=== PATIENT | male | born 1960 | race Caucasian/White ===

== ENCOUNTER → 2018-11-14 12:39 | Outpatient (CLI) | payer OTHER, SELFPAY ==
--- NOTE | 2018-11-14 12:45 | RAD_ITS ---
STUDY: X-RAY - LUMBAR SPINE REASON FOR EXAM: Male, 57 years old. Back pain and sciatica TECHNIQUE: view(s) of the lumbar spine were obtained. COMPARISON: None FINDINGS: There is grade 1 anterolisthesis of L4 and L5, approximately 4 mm. There is suboptimal visualization of the pars interarticularis to definitively evaluate for lysis. The rest of the spine is intact and aligned. Mineralization is normal. Paraspinous shadows are unremarkable. SI joints are normal. There are expected age-related changes at all levels. There is no intestinal obstruction. There are small, 2-3 mm, densities projecting in the left flank, possibly renal stones. RAD/Lumbar Spine 2 or 3 Views IMPRESSION: L4-L5 grade 1 anterolisthesis, possibility of lysis. Confirmation with CT or MR is advised. Electronically Signed: Carmenza Pascual, at 17:58 EDT Tel , Service support ,
--- NOTE | 2018-11-14 12:45 | RAD_ITS ---
STUDY: X-RAY - LEFT SHOULDER REASON FOR EXAM: Male, 57 years old. Shoulder pain TECHNIQUE: 4 view(s) of the shoulder. COMPARISON: None. FINDINGS: Normal glenohumeral articulation. Normal acromioclavicular joint. Normal acromion. Normal humeral head and visualized proximal humerus. There is a small calcification at the insertion footplate of the rotator cuff. The soft tissue structures are unremarkable. Normal visualized pulmonary apex. RAD/Shoulder min 2 Views IMPRESSION: No acute or chronic process of normality. Mild chronic rotator cuff tendon degeneration. Electronically Signed: Carmenza Pascual, at 18:04 EDT Tel , Service support ,
== END ==
PROVIDERS: Family Provider Physician Assistant; PCP Physician Assistant
DX: M25.512 Pain in left shoulder (principal); M54.30 Sciatica, unspecified side
CPT/HCPCS: 72100; 73030

== ENCOUNTER 2020-06-02 15:58 | Outpatient (RCR) | payer OTHER, SELFPAY ==
[2020-06-02] MEDS: COVID-19 VACC, MRNA(PFIZER)/PF 30 MCG/0.3 ML SYRINGE IM (12:43)
[2020-06-23] MEDS: COVID-19 VACC, MRNA(PFIZER)/PF 30 MCG/0.3 ML SYRINGE IM (12:35)
== END 2020-06-02 23:59 ==
LOC: IMMUN 15:58
PROVIDERS: PCP Student in an Organized Health Care Education/Training Program; Referring Provider Family Medicine; Visit Provider Family Medicine
DX: Z23 Encounter for immunization (principal)
CPT/HCPCS: 0001A; 0002A; 91300

== ENCOUNTER → 2020-06-17 13:48 | Outpatient (CLI) | payer OTHER, SELFPAY ==
--- NOTE | 2020-06-17 13:57 | RAD_ITS ---
EXAM: XR LEFT KNEE, 3 VIEWS CLINICAL INDICATION: KNEE PAIN TECHNIQUE: Three views of the left knee. This report was created using [facility] report generation technology. COMPARISON: None. FINDINGS: BONES/JOINTS: Mild degenerative changes of the patellofemoral joint. No acute fracture. No subluxation. Normal alignment. No sclerotic or destructive changes observed. SOFT TISSUES: Unremarkable. No soft tissue swelling or gas. No radiopaque foreign body. VASCULATURE: Atherosclerosis. RAD/Knee 3 Views IMPRESSION: Mild degenerative changes of the patellofemoral joint. Electronically Signed: Bird Moore MD (Brooks) at 19:25 EDT , Service support ,
--- NOTE | 2020-06-17 14:00 | RAD_ITS ---
EXAM: XR LEFT HIP WITH PELVIS WHEN PERFORMED, 2 OR 3 VIEWS CLINICAL INDICATION: HIP PAIN TECHNIQUE: Two or three views of the left hip with pelvis when performed. This report was created using [employer] report generation technology. COMPARISON: None. FINDINGS: BONES/JOINTS: Operative changes of the lower lumbar spine. SOFT TISSUES: Unremarkable. No soft tissue swelling or gas. VASCULATURE: Atherosclerosis. RAD/HIP, UNI W/ Pelvis 2-3 Views IMPRESSION: Unremarkable left hip. No erosive arthropathy. Electronically Signed: Bird Moore MD (Brooks) at 19:23 EDT , Service support ,
[2020-06-17 15:11] LABS: Hematocrit 40.7 % (40-54); Hemoglobin 13.1 g/dL (13.0-16.5); Mean Corp Hgb Conc 32.2 g/dL (32-36); Mean Corpuscular Hgb 31.6 pg (27.0-32.0); Mean Corpuscular Volume 98.1 fL (80-94); Mean Platelet Vol. 9.4 fl (6.2-12.0); Platelet Count 292 K/mm3 (150-450); RBC Distribution Width CV 12.2 % (11.6-14.6); RBC Distribution Width SD 43.8 fl (35.1-43.9); Red Blood Count 4.15 M/mm3 (4.6-6.2); White Blood Count 6.8 K/mm3 (4.4-11.0)
[2020-06-17 15:40] LABS: Hemoglobin A1c 7.9 % (3.8-5.6)
[2020-06-17 15:43] LABS: Vitamin B12 537 pg/mL (211-911)
[2020-06-17 15:52] LABS: ALB/GLOB Ratio 0.9 RATIO (0.9-2.4); AST(SGOT) 18 U/L (15-37); Alanine Aminotransfer ALT/SGPT 26 U/L (16-61); Albumin, Serum 3.9 g/dL (3.2-5.0); Alkaline Phosphatase 84 U/L (45-117); Anion Gap 4 (5-15); BUN 31 mg/dL (7-18); BUN/Creat Ratio 27.4 RATIO (10-20); Calcium,Total 9.4 mg/dL (8.5-10.1); Chloride 103 mmol/L (98-107); Cholesterol 134 mg/dL (200); Creatinine, Serum 1.13 mg/dL (0.70-1.30); EST Glomerular Filtration Rate 71 mL/min (>60); Est Glom Filt Rate - Afr Amer 86 mL/min (>60); Globulin 4.3 g/dL (2.2-4.2); Glucose 98 mg/dL (74-106); High Density Lipoprotein 27 mg/dL; Protein, Total 8.2 g/dL (6.4-8.2); Sodium Level 133 mmol/L (136-145); Triglycerides 181 mg/dL; Very Low Density Lipoprotein 36 mg/dL (5-40)
[2020-06-17 16:04] LABS: Microalbumin:Creatinine Ratio 1343.8 mg/g CRE (<30 mg/g CRE)
== END ==
PROVIDERS: PCP Student in an Organized Health Care Education/Training Program; Referring Provider Student in an Organized Health Care Education/Training Program; Visit Provider Student in an Organized Health Care Education/Training Program
DX: M17.10 Unilateral primary osteoarthritis, unspecified knee (principal); M16.9 Osteoarthritis of hip, unspecified
CPT/HCPCS: 36415; 73502; 73562; 80053; 80061; 82043; 82570; 82607; 83036; 84443; 85027

== ENCOUNTER 2021-05-25 17:54 | Inpatient (IN) | payer OTHER, SELFPAY ==
[2021-05-25 17:55] VITALS: BP 126/77; PULSE 110; RESP 20; TEMP 35.8; O2SAT 94; BMI 23.3
--- NOTE | 2021-05-25 18:07 | EX.ED.DYSGE1 ---
HPI <DEVORAH Cantrell - Last Filed: 05/25/21 19:54> History of Present Illness Chief Complaint: Wound Narrative Narrative: 60-year-old male with PMH of DM2 presents with left foot wound. Around the middle of April he got a blister on his foot after shoveling. It became an open wound on the sole of his foot with some redness along the toes. He was seen at urgent care twice and has done 2 rounds of an antibiotic which he thinks was doxycycline. Initially the redness improved but it returned again last weekend. He denies fever, chills, nausea, vomiting. He denies any purulent drainage from the wound. PFSH <DEVORAH Cantrell - Last Filed: 05/25/21 19:54> [facility] Medical History (Updated 05/25/21 @ 18:[address] Joe Conley MD) Diabetes type 2, uncontrolled High blood pressure High cholesterol Home Medications albuterol sulfate 2 puff INHALATION PRN PRN 05/25/21 [History Last Taken Unknown] amlodipine-atorvastatin 10 - 40 tab PO DAILY 05/25/21 [History Last Taken Unknown] doxycycline hyclate 05/25/21 [History Last Taken Unknown] empagliflozin [Jardiance] 25 mg PO DAILY 05/25/21 [History Last Taken Unknown] gabapentin 800 mg PO DAILY 05/25/21 [History Last Taken Unknown] glipizide 5 mg PO DAILY 05/25/21 [History Last Taken Unknown] metformin 1,000 mg PO DAILY 05/25/21 [History Last Taken Unknown] olmesartan 20 mg PO DAILY 05/25/21 [History Last Taken Unknown] semaglutide [Ozempic] 1 mg SUBCUT X1 05/25/21 [History Last Taken Unknown] trazodone 100 mg PO DAILY 05/25/21 [History Last Taken Unknown] Allergy/AdvReac Type Severity Reaction Status Date / Time No Known Allergies Allergy Verified 05/25/21 17:55 Social History Smoking Status: Former smoker ROS <DEVORAH Cantrell - Last Filed: 05/25/21 19:54> ROS ED ROS Narrative Constitutional: Negative for fever, chills, malaise. Eyes: Negative for visual change. ENT: Negative for sore throat, ear pain, rhinorrhea. CVS: Negative for palpitations, chest pain, syncope. Respiratory: Negative for shortness of breath, cough, orthopnea. GI: Negative for abdominal pain, nausea, vomiting, diarrhea, constipation, melena, hematochezia. : Negative for dysuria, hematuria or frequency. Neuro: Negative for headache, motor/sensory dysfunction. Skin: Positive for wound. Negative for rash, abscess. Musc: Negative for joint pain, swelling, trauma. Heme: Negative for easy bruising, bleeding, lymphadenopathy. EXAM <DEVORAH Cantrell - Last Filed: 05/25/21 19:54> Physical Exam Narrative Exam Narrative: CONST: Patient sitting in no acute distress. EYES: Normal inspection. ENT: Normal inspection, moist mucous membranes. NECK: Normal inspection. RESP: No respiratory distress, diffuse rhonchi/wheezing. CVS: Regular rate and rhythm, no murmur, no gallop. SKIN: 2 x 3 cm wound on the plantar foot at the base of the second and third toes. No drainage. No crepitus or fluctuance. The area between his second and third toes is macerated. EXTREMITIES: Erythema and warmth of the second, third, fourth toes and dorsum of the foot in this area. 2+ dorsalis pedis pulse. NEURO: Oriented x4. PSYCH: Normal affect. Const Vital Signs: 05/25/21 17:55 05/25/21 18:11 05/25/21 19:00 Temperature 96.4 F L 96.4 F L 98.4 F Temperature Source Temporal Temporal Temporal Pulse Rate 110 H 110 H 81 Respiratory Rate 20 H 20 H 16 Blood Pressure 126/77 H 126/77 H 142/82 H Blood Pressure Mean 93 93 102 Pulse Ox 94 94 98 Oxygen Delivery Method Room Air Room Air Room Air <Dr. Joe Conley MD - Last Filed: 05/25/21 19:46> Physical Exam Const Vital Signs: 05/25/21 17:55 05/25/21 18:11 05/25/21 19:00 Temperature 96.4 F L 96.4 F L 98.4 F Temperature Source Temporal Temporal Temporal Pulse Rate 110 H 110 H 81 Respiratory Rate 20 H 20 H 16 Blood Pressure 126/77 H 126/77 H 142/82 H Blood Pressure Mean 93 93 102 Pulse Ox 94 94 98 Oxygen Delivery Method Room Air Room Air Room Air MDM <DEVORAH Cantrell - Last Filed: 05/25/21 19:54> [facility] Narrative Medical decision making narrative: Patient has a diabetic ulcer on his left foot with cellulitis that is failed outpatient antibiotics. He appears well and nontoxic. He was tachycardic in the 110s with otherwise normal vital signs. Afebrile. Clinically he appears well. He has a plantar full-thickness ulcer on the forefoot. There is cellulitis extending up the dorsum of the foot. Extremity is neurovascularly intact. Labs show normal white count with no shift. He does have elevated inflammatory markers with a normal lactate of 1.0. Glucose is 200. X-ray is negative for evidence of osteomyelitis. Patient will be treated with IV Zosyn and admitted for further treatment. Case was discussed with the hospitalist. 1. Diabetic foot wound, left 2. Cellulitis, left foot 3. Failed outpatient therapy Lab Data Labs: Laboratory Results - last 24 hr 05/25/21 05/25/21 05/25/21 18:25 18:25 18:25 WBC 8.6 RBC 3.87 L Hgb 12.7 L Hct 37.4 L MCV 96.6 H MCH 32.8 H MCHC 34.0 RDW Std Deviation 41.9 RDW Coeff of Imtiaz 11.9 Plt Count 328 MPV 9.1 Immature Gran % (Auto) 0.600 Neut % (Auto) 74.5 H Lymph % (Auto) 17.1 L Pacific % (Auto) 5.4 Eos % (Auto) 1.9 Baso % (Auto) 0.5 Absolute Neuts (auto) 6.4 Absolute Lymphs (auto) 1.47 Nucleated RBC % 0 ESR 77 H Sodium 135 L Potassium 4.2 Chloride 101 Carbon Dioxide 25.0 Anion Gap 9 BUN 44 H Creatinine 1.16 Estim Creat Clear Calc 73.93 Est GFR (MDRD) Af Amer 83 Est GFR (MDRD) Non-Af 69 BUN/Creatinine Ratio 37.9 H Glucose 200 H Lactic Acid 1.0 Calcium 9.2 C-React Prot Ext Range 55.30 H Radiography Diagnostic Testing: Clinical Impression(s) from Imaging Studies Foot X-Ray 05/25/21 18:42 IMPRESSION: 1. No x-ray evidence of active osteomyelitis is seen. No visualized subcutaneous gas. Electronically Signed: Han Mackenzie MD at 19:10 EST Reading Location ID and State: [address] [place] [address] , Service support , <Dr. Joe Conley MD - Last Filed: 05/25/21 19:46> MDM MDM Narrative Medical decision making narrative: Seen and evaluated independently and in conjunction with physician production assistant. Agree with notes above unless documented otherwise. Exam: Patient with a diabetic full-thickness ulceration to the plantar left forefoot with clear evidence of cellulitis involving the dorsum of the entire mid forefoot. He does have neuropathy but it is tender. There is no expressible discharge or palpable abscess. He has been on several courses of antibiotics and this is getting worse despite that. He is tachycardic but otherwise looks well. Plan will be to evaluate for the possibility of osteomyelitis, and even if he does not have evidence of osteo he will require admission with IV antibiotic for failure of outpatient therapy and worsening diabetic foot infection. Lab Data Attestation: I reviewed the patient's lab results. Labs: Laboratory Results - last 24 hr 05/25/21 05/25/21 05/25/21 18:25 18:25 18:25 WBC 8.6 RBC 3.87 L Hgb 12.7 L Hct 37.4 L MCV 96.6 H MCH 32.8 H MCHC 34.0 RDW Std Deviation 41.9 RDW Coeff of Imtiaz 11.9 Plt Count 328 MPV 9.1 Immature Gran % (Auto) 0.600 Neut % (Auto) 74.5 H Lymph % (Auto) 17.1 L Pacific % (Auto) 5.4 Eos % (Auto) 1.9 Baso % (Auto) 0.5 Absolute Neuts (auto) 6.4 Absolute Lymphs (auto) 1.47 Nucleated RBC % 0 ESR 77 H Sodium 135 L Potassium 4.2 Chloride 101 Carbon Dioxide 25.0 Anion Gap 9 BUN 44 H Creatinine 1.16 Estim Creat Clear Calc 73.93 Est GFR (MDRD) Af Amer 83 Est GFR (MDRD) Non-Af 69 BUN/Creatinine Ratio 37.9 H Glucose 200 H Lactic Acid 1.0 Calcium 9.2 C-React Prot Ext Range 55.30 H Radiography Diagnostic Testing: Clinical Impression(s) from Imaging Studies Foot X-Ray 05/25/21 18:42 IMPRESSION: 1. No x-ray evidence of active osteomyelitis is seen. No visualized subcutaneous gas. Electronically Signed: Han Mackenzie MD at 19:10 EST , Discharge Plan Dx/Rx/DC Orders Clinical Impression: Diabetic infection of left foot, Uncontrolled type 2 diabetes mellitus, Failure of outpatient treatment Disposition Disposition: Acute Care Hospital [facility]
[2021-05-25 18:11] VITALS: BP 126/77; PULSE 110; RESP 20; TEMP 35.8; O2SAT 94
[2021-05-25 18:38] LABS: Absolute Lymphocyte Count 1.47 X10^3/uL (0.83-4.51); Absolute Neutrophil Count 6.4 X10^3/uL (2.0-7.7); Basophil# 0.04 X10^3/uL; Basophil% 0.5 % (0-1); Eosinophil# 0.16 X10^3/uL; Eosinophils% 1.9 % (0-5); Hematocrit 37.4 % (40-54); Hemoglobin 12.7 g/dL (13.0-16.5); Lymphocyte # 1.47 X10^3/ul (0.83-4.51); Lymphocyte % 17.1 % (19-41); Mean Corpuscular Hgb 32.8 pg (27.0-32.0); Mean Corpuscular Volume 96.6 fL (80-94); Mean Platelet Vol. 9.1 fl (6.2-12.0); Monocyte# 0.46 X10^3/uL; Monocyte% 5.4 % (0-10); NRBC Flagged by Analyzer 0 % (0-5); Neutrophil # 6.41 X10^3/uL (2.7-7.7); Neutrophil % 74.5 % (47-70); Platelet Count 328 K/mm3 (150-450); RBC Distribution Width CV 11.9 % (11.6-14.6); RBC Distribution Width SD 41.9 fl (35.1-43.9); Red Blood Count 3.87 M/mm3 (4.6-6.2); White Blood Count 8.6 K/mm3 (4.4-11.0)
--- NOTE | 2021-05-25 18:42 | RAD_ITS ---
STUDY: X-RAY - LEFT FOOT CLINICAL: Male, 60 years old. Injury/Pain pt states left foot pain, redness, and wound on plantar surface x 1 month, hx of diabetes TECHNIQUE: 3 view(s) of the foot. COMPARISON: None. FINDINGS: Normal talus, calcaneus, and tarsal bones. Normal visualized subtalar, talonavicular, calcaneocuboid, tarsal and tarsometatarsal articulations. Normal metatarsi. Small plantar calcaneal spur noted. No x-ray evidence of active osteomyelitis is seen. No visualized subcutaneous gas. Normal metatarsophalangeal joint of the great toe. Normal tibial and fibular sesamoid bones. Normal interphalangeal joint of the great toe. Normal phalanges of the great toe. Normal second through fifth metatarsophalangeal joints. Normal interphalangeal joints and phalanges of the lesser toes. The soft tissue structures are unremarkable. RAD/Foot min 3 Views IMPRESSION: 1. No x-ray evidence of active osteomyelitis is seen. No visualized subcutaneous gas. Electronically Signed: Han Mackenzie MD at 19:10 EST ,
[2021-05-25 18:43] LABS: Erythrocyte Sedimentation Rate 77 mm/hr (0-20)
[2021-05-25 18:53] LABS: Anion Gap 9 (5-15); BUN 44 mg/dL (7-18); BUN/Creat Ratio 37.9 RATIO (10-20); Calcium,Total 9.2 mg/dL (8.5-10.1); Chloride 101 mmol/L (98-107); Creatinine, Serum 1.16 mg/dL (0.70-1.30); EST Glomerular Filtration Rate 69 mL/min (>60); Est Glom Filt Rate - Afr Amer 83 mL/min (>60); Estimated Creatinine Clearance 73.93 ml/min; Glucose 200 mg/dL (74-106); Potassium 4.2 mmol/L (3.5-5.1); Sodium Level 135 mmol/L (136-145)
[2021-05-25] MEDS: Piperacil/Tazobactam 3.375 GM Q12 PREMIX IV (18:54)
[2021-05-25 19:00] VITALS: BP 142/82; PULSE 81; RESP 16; TEMP 36.9; O2SAT 98
--- NOTE | 2021-05-25 19:22 | PCM.HP.STD ---
HPI - General General Date of Admission: 05/25/21 Date of Service: 05/25/21 Chief Complaint: L foot Diabetic Infection HPI Narrative The patient is a 60 y/o M w/ PMHx: Former tobacco use, Diabetes mellitus type II, HTN, HLD who presents to the [facility] ED on 05/25/21 with history of onset blister to his left foot following outside activity including shoveling which eventually opened and became a wound on the sole of his foot as well as some mild erythema around his toes with urgent care evaluation twice with 2 rounds of antibiotics including doxycycline with initial improvement of the erythema however it returned approximately 4 days prior to current presentation with no fevers, chills, nausea or emesis and no significant purulent drainage from the wound but not improving prompting ED evaluation. He notes the region is tender to palpation, dull ache and sharp pain w/ palpation, rated 2-3/10 in severity. He notes when he was shoveling he was wearing muck boots. He does no own diabetic shoes which was discussed. Also, from discussions he does not abide an ADA diet. Work-up in the ED included T 96.4, heart rate 110, BP 126/77, respiratory rate 20, 94% on room air, CBC with WBC 8.6, hemoglobin 12.7, platelet 328 without marked shift, ESR 77, BMP with sodium 135, BUN/creatinine 44/1.16, glucose 200, CRP 55.30, lactic acid 1.0, plain film of the left foot with no evidence of active osteomyelitis with no visualized subcutaneous gas. In the ED patient ministered Zosyn therapy. [facility] Medical History (Updated 05/25/21 @ 20:[address] Jessica Rao MD) Diabetes type 2, uncontrolled Former tobacco use High blood pressure High cholesterol Home Medications albuterol sulfate 2 puff INHALATION PRN PRN 05/25/21 [History Last Taken 05/23/21] amlodipine-atorvastatin 10 - 40 tab PO DAILY 05/25/21 [History Last Taken 05/25/21] doxycycline hyclate 100 mg PO BID 05/25/21 [History Last Taken 05/25/21] empagliflozin [Jardiance] 25 mg PO DAILY 05/25/21 [History Last Taken 05/25/21] gabapentin 800 mg PO TID 05/25/21 [History Last Taken 05/25/21] glipizide 5 mg PO BID 05/25/21 [History Last Taken 05/25/21] metformin 1,000 mg PO BID 05/25/21 [History Last Taken 05/25/21] olmesartan 20 mg PO DAILY 05/25/21 [History Last Taken 05/25/21] semaglutide [Ozempic] 1 mg SUBCUT FR 05/25/21 [History Last Taken 05/19/21] trazodone 100 mg PO DAILY 05/25/21 [History Last Taken 05/24/21] Allergy/AdvReac Type Severity Reaction Status Date / Time No Known Allergies Allergy Verified 05/25/21 17:55 Family History (Updated 05/25/21 @ 20:[address] Jessica Rao MD) Mother Hypertension CVA (cerebral vascular accident) Diabetes other (Patient denies any marked paternal family history including HD, DM, CA.) Surgical History (Updated 05/25/21 @ 20:[address] Jessica Rao MD) H/O spinal fusion S/P hardware removal Social History (Updated 05/25/21 @ 20:[address] Jessica Rao MD) household members: spouse Smoking Status: Former smoker how long ago did patient quit smoking: Quit 1987, smoked 1.5 ppd since teen. alcohol intake: never substance use type: does not use ROS ROS Narrative Admission Review of Systems: CONSTITUTIONAL: No weight loss, fever, chills, + weakness or fatigue. HEENT: Eyes: No visual loss, blurred vision, double vision or yellow sclerae. Ears, Nose, Throat: No hearing loss, sneezing, congestion, runny nose or sore throat. SKIN: + Left foot ulceration and redness. CARDIOVASCULAR: No chest pain, chest pressure or chest discomfort, palpitations, edema, orthopnea, syncopal events. RESPIRATORY: No shortness of breath, cough or sputum, wheezing, hemoptysis. GASTROINTESTINAL: No anorexia, nausea, vomiting or diarrhea, abdominal pain, melena, BRBPR. GENITOURINARY: No dysuria, frequency, urgency or retention. NEUROLOGICAL: No headache, dizziness, syncope, paralysis, ataxia, numbness or tingling in the extremities, focal weakness, change in bowel or bladder control, seizure. MUSCULOSKELETAL: No muscle, back pain, joint pain or stiffness. HEMATOLOGIC: + anemia, bleeding or bruising. LYMPHATICS: No enlarged nodes. No history of splenectomy. PSYCHIATRIC: No history of depression or anxiety. ENDOCRINOLOGIC: No reports of sweating, cold or heat intolerance. No polyuria or polydipsia. ALLERGIES: No history of asthma, hives, eczema or rhinitis. Vital Signs Vital Signs Vital Signs: 05/25/21 17:55 05/25/21 18:11 Temperature 96.4 F L 96.4 F L Temperature Source Temporal Temporal Pulse Rate 110 H 110 H Respiratory Rate 20 H 20 H Blood Pressure 126/77 H 126/77 H Blood Pressure Mean 93 93 Pulse Ox 94 94 Oxygen Delivery Method Room Air Room Air Weight Weight: 167 lb 8.821 oz Body Mass Index (BMI) 23.3 Physical Exam Narrative Physical Examination: General: Awake, alert, oriented x 3 and cooperative, seated upright in the ED bed in no apparent distress. Skin: Normal color, normal turgor, no icterus, no cyanosis except significant plantar foot at the base of the second third toe wound approximately 2 x 3 cm with no drainage with periwound erythema as well as erythema between the second and third toes with macerated appearance as well as warmth to palpation. HEENT: AT/NC, EOMI, PERRLA, MMM, no carotid bruits or JVD noted. Lungs: Mildly diminished, greater bases, moderate effort, no rales, ronchi or wheezing. Heart: Currently mildly tachycardic with rhythm; no gallop, rub audible. Abdomen: Soft, NTTP, ND, normal BS, no HSM. Extremities: No cyanosis, no clubbing, see skin, peripheral pulses intact. Neurological: Patient awake, alert, oriented x 3, cognitive function intact; pupils equally reactive to light and accommodation, cranial nerves II-XII grossly normal, moving all 4 extremities, no focal deficits, strength mildly moderately global decrease secondary to acute presentation as noted. Psychiatric: Affect appears normal, no acute evidence of depressive or anxiety feelings. Results Lab / Micro Data Result Diagrams: 05/25/21 18:25 05/25/21 18:25 Labs: Laboratory Results - last 24 hr 05/25/21 18:25: WBC 8.6, RBC 3.87 L, Hgb 12.7 L, Hct 37.4 L, MCV 96.6 H, MCH 32.8 H, MCHC 34.0, RDW Std Deviation 41.9, RDW Coeff of Imtiaz 11.9, Plt Count 328, MPV 9.1, Immature Gran % (Auto) 0.600, Neut % (Auto) 74.5 H, Lymph % (Auto) 17.1 L, Me[place] % (Auto) 5.4, Eos % (Auto) 1.9, Baso % (Auto) 0.5, Absolute Neuts (auto) 6.4, Absolute Lymphs (auto) 1.47, Nucleated RBC % 0, ESR 77 H 05/25/21 18:25: Sodium 135 L, Potassium 4.2, Chloride 101, Carbon Dioxide 25.0, Anion Gap 9, BUN 44 H, Creatinine 1.16, Estim Creat Clear Calc 73.93, Est GFR (MDRD) Af Amer 83, Est GFR (MDRD) Non-Af 69, BUN/Creatinine Ratio 37.9 H, Glucose 200 H, Calcium 9.2, C-React Prot Ext Range 55.30 H 05/25/21 18:25: Lactic Acid 1.0 Radiology Impression Foot X-Ray 05/25/21 18:42 IMPRESSION: 1. No x-ray evidence of active osteomyelitis is seen. No visualized subcutaneous gas. Electronically Signed: Han Mackenzie MD at 19:10 EST Reading Location ID and State: [facility] / [place] , Service support , Assessment & Plan Assessment/Plan (1) Diabetic infection of left foot: PLAN: The patient is a 60 y/o M w/ PMHx: Former tobacco use, Diabetes mellitus type II, HTN, HLD who presents to the [facility] ED on 05/25/21 with history of onset blister to his left foot following outside activity including shoveling which eventually opened and became a wound on the sole of his foot as well as some mild erythema around his toes with urgent care evaluation twice with 2 rounds of antibiotics including doxycycline with initial improvement of the erythema however it returned approximately 4 days prior to current presentation. #1. Left foot diabetic infected wound: Will admit to medical surgical floor, maintain on IV Zosyn and vancomycin, will obtain Wound Cx, will obtain Wound MRSA PCR, plan repeat CBC in AM, continue affected extremity elevation above heart when seated and in bed, monitor erythema outline with VS checks as needed pain and antiemetic regimen, podiatry consulted and pending, continue with offloading, wound RN consulted and pending. Will defer further imaging to podiatry discretion. #2. Diabetes mellitus type II with neuropathy: Hold oral home regimen, hemoglobin A1c requested, nutrition consulted for education and teaching given presentation, ADA diet, accu checks w/ ISS, continue home gabapentin regimen. Magnesium level requested given usage of chronic diabetic medications which can decrease this electrolyte. #3. Hypertension: Continue home regimen including amlodipine, omlesartan with hold parameters as needed, PRN hydralazine. #4. Hyperlipidemia: We will continue patient on statin therapy. #5. Former tobacco use: Encourage continued tobacco cessation. #6. Macrocytic anemia: Admission hemoglobin 12.7 with mild MCV elevation, will obtain folic acid and vitamin B12 level, repeat CBC in AM. #7. DVT prophylaxis: SCDs, hold on chemoprophylaxis in case of intervention, pending surgery evaluation as noted. Charges/Coding Visit Charges Inpatient E&M: 32886 Init Hosp L3
[2021-05-25 19:46] VITALS: BP 132/66; PULSE 70; RESP 14; TEMP 37; O2SAT 98
--- NOTE | 2021-05-25 20:33 | CM.ED ---
RN CM Assessment Introduced role of RN CM to patient and Renetta at bedside. Patient is alert, oriented and able to participate in RN CM Assessment. Care providers, pharmacy, and demographics verified. Admit Dx: Left diabetic foot infection Re-Admit: No Barriers/Issues: None. Unemployed. PCP manages diabetes. PCP: Javy Alcaraz Specialists: None Preferred Pharmacy: [facility] Insurance: [employer] Rx Benefit: Yes LNOK: Renetta Parr LW/HPOA: Not sure if he has completed. AD information provided with social media marketing analyst rack card. Informed can complete as an inpatient or outpatient. Living Arrangements: Lives with in a [place], Multiple steps to enter home and within home- 8steps, 6 steps, and 7 steps ADL?s: Independent with Amb and ADLs Transportation: Both patient and drive. will transport upon DC DME: [employer] HHC: None SNF: None Goal: Home and does not think will have any needs, issues or concerns with going home. States if IV Abx is needed- both him and can be taught. Okay with HH and/or wound center if recommended. Current wound w/no drainage and not getting wound care for it. DC PLAN: Home and needs TBD. LE Mora
[2021-05-25 20:36] VITALS: BP 134/76; PULSE 81; RESP 16; TEMP 36.9; O2SAT 100
[2021-05-25 20:37] VITALS: BMI 24.0
[2021-05-25] MEDS: 0.9% Normal Saline 1,000 ML 125 ML IV (21:53)
--- NOTE | 2021-05-25 22:00 | NURSING ---
pt refusing to take hospital supplied medications. Pt brought his home medications to hospital, pt states he is taking his own medication because they are already paid for. This nurse ask pt not to take any medications without telling hospital staff first. Dr. Rao notified.
[2021-05-25 22:06] LABS: Bedside Glucose 139 mg/dL (74-106)
[2021-05-25 22:07] VITALS: O2SAT 100
[2021-05-25 22:36] LABS: Magnesium 2.2 mg/dL (1.6-2.6)
[2021-05-26] VITALS (7 sets, daily range): BP systolic 122–140; BP diastolic 63–90; PULSE 70–90; RESP 16–18; TEMP 36.6–36.7; O2SAT 92–98
[2021-05-26 00:19] LABS: M R Staph aureus DNA By PCR Negative (Negative); Probe Check PASS; Specimen Processing Control PASS; Staph aureus DNA By PCR POSITIVE (Negative)
--- NOTE | 2021-05-26 01:48 | PCM.RX.CS ---
Consult Pharmacy has been consulted to manage selected antiobiotic: Vancomycin Type of Consult: New start Labs: Sodium 135 mmol/L (136-145) L 05/25/21 18:25 Potassium 4.2 mmol/L (3.5-5.1) 05/25/21 18:25 Chloride 101 mmol/L (98-107) 05/25/21 18:25 Carbon Dioxide 25.0 mmol/L (21.0-32.0) 05/25/21 18:25 Anion Gap 9 (5-15) 05/25/21 18:25 BUN 44 mg/dL (7-18) H 05/25/21 18:25 Creatinine 1.16 mg/dL (0.70-1.30) 05/25/21 18:25 Est GFR (MDRD) Af Amer 83 mL/min (>60) 05/25/21 18:25 Est GFR (MDRD) Non-Af 69 mL/min (>60) 05/25/21 18:25 BUN/Creatinine Ratio 37.9 RATIO (10-20) H 05/25/21 18:25 Glucose 200 mg/dL (74-106) H 05/25/21 18:25 Weight used for dosin kg Estimated Creatinine Clearance: 73.9 Goal Trough: 15-20 mcg/mL Pharmacy Plan for Drug Dosing: Pharmacy Service will continue to monitor and adjust dosing as required. Medications Vancomycin HCl (Vancomycin) 1,000 mg in 200 mls @ 200 mls/hr IV Q12H DARRYL Discontinued Medications Vancomycin HCl 2,000 mg/ (Sodium Chloride) 540 mls @ 250 mls/hr IV X1 ONE Stop: 05/25/21 23:39 Last Admin: 05/25/21 21:36 Dose: 250 mls/hr Documented by: Follow-Up Labs: Trough Vancomycin Labs to be done on [date and time ordered]: 05/27 @ 0900
[2021-05-26] MEDS: 0.9% Normal Saline 1,000 ML 125 ML IV (06:12)
[2021-05-26 06:22] LABS: Absolute Lymphocyte Count 2.58 X10^3/uL (0.83-4.51); Absolute Neutrophil Count 5.3 X10^3/uL (2.0-7.7); Basophil# 0.04 X10^3/uL; Basophil% 0.5 % (0-1); Eosinophil# 0.21 X10^3/uL; Eosinophils% 2.4 % (0-5); Hematocrit 36.4 % (40-54); Lymphocyte # 2.58 X10^3/ul (0.83-4.51); Lymphocyte % 29.7 % (19-41); Mean Corpuscular Hgb 31.7 pg (27.0-32.0); Mean Platelet Vol. 9.6 fl (6.2-12.0); Monocyte# 0.55 X10^3/uL; Monocyte% 6.3 % (0-10); NRBC Flagged by Analyzer 0 % (0-5); Neutrophil # 5.27 X10^3/uL (2.7-7.7); Neutrophil % 60.6 % (47-70); Platelet Count 290 K/mm3 (150-450); RBC Distribution Width CV 11.9 % (11.6-14.6); RBC Distribution Width SD 41.5 fl (35.1-43.9); Red Blood Count 3.79 M/mm3 (4.6-6.2); White Blood Count 8.7 K/mm3 (4.4-11.0)
[2021-05-26 06:26] LABS: Bedside Glucose 90 mg/dL (74-106)
[2021-05-26 07:12] LABS: ALB/GLOB Ratio 0.6 RATIO (0.9-2.4); AST(SGOT) 14 U/L (15-37); Alanine Aminotransfer ALT/SGPT 13 U/L (16-61); Albumin, Serum 2.8 g/dL (3.2-5.0); Alkaline Phosphatase 79 U/L (45-117); Anion Gap 7 (5-15); BUN 35 mg/dL (7-18); BUN/Creat Ratio 45.9 RATIO (10-20); Calcium,Total 9.4 mg/dL (8.5-10.1); Chloride 113 mmol/L (98-107); Creatinine, Serum 0.76 mg/dL (0.70-1.30); EST Glomerular Filtration Rate 111 mL/min (>60); Est Glom Filt Rate - Afr Amer 135 mL/min (>60); Estimated Creatinine Clearance 112.84 ml/min; Globulin 4.5 g/dL (2.2-4.2); Glucose 68 mg/dL (74-106); Protein, Total 7.3 g/dL (6.4-8.2); Sodium Level 138 mmol/L (136-145)
--- NOTE | 2021-05-26 07:21 | PCM.PN.HOSP ---
Subjective Subjective Follow-up for diabetic foot ulcer. Patient is n.p.o. until decision is made for surgery today or not pending MRI results. Patient wound dressing is done. Lower extremity arterial duplex scan done. Objective Data Objective Data Vital Signs: Vital Signs Temp Pulse Resp BP Pulse Ox 98.1 F 90 18 140/63 H 94 05/26/21 03:16 05/26/21 03:16 05/26/21 03:16 05/26/21 03:16 05/26/21 03:16 Oxygen Delivery Method Room Air Weight: 172 lb 2.896 oz Body Mass Index (BMI) 24.0 Intake & Output: Intake and Output for Last 24 Hours 05/24/21 05/25/21 05/26/21 23:59 23:59 23:59 Intake Total 592.08 / 992.08 1204.17 / 1204.17 Balance 592.08 / 992.08 1204.17 / 1204.17 Lab / Micro Data Result Diagrams: 05/26/21 05:35 05/26/21 05:35 Labs: Laboratory Results - last 24 hr 05/25/21 18:25: WBC 8.6, RBC 3.87 L, Hgb 12.7 L, Hct 37.4 L, MCV 96.6 H, MCH 32.8 H, MCHC 34.0, RDW Std Deviation 41.9, RDW Coeff of Imtiaz 11.9, Plt Count 328, MPV 9.1, Immature Gran % (Auto) 0.600, Neut % (Auto) 74.5 H, Lymph % (Auto) 17.1 L, [place] % (Auto) 5.4, Eos % (Auto) 1.9, Baso % (Auto) 0.5, Absolute Neuts (auto) 6.4, Absolute Lymphs (auto) 1.47, Nucleated RBC % 0, ESR 77 H 05/25/21 18:25: Sodium 135 L, Potassium 4.2, Chloride 101, Carbon Dioxide 25.0, Anion Gap 9, BUN 44 H, Creatinine 1.16, Estim Creat Clear Calc 73.93, Est GFR (MDRD) Af Amer 83, Est GFR (MDRD) Non-Af 69, BUN/Creatinine Ratio 37.9 H, Glucose 200 H, Calcium 9.2, C-React Prot Ext Range 55.30 H 05/25/21 18:25: Lactic Acid 1.0 05/25/21 18:25: Magnesium 2.2 05/25/21 21:10: S.aureus Protein A PCR POSITIVE H, MRSA (PCR) Negative 05/25/21 21:54: POC Glucose 139 H 05/26/21 05:35: WBC 8.7, RBC 3.79 L, Hgb 12.0 L, Hct 36.4 L, MCV 96.0 H, MCH 31.7, MCHC 33.0, RDW Std Deviation 41.5, RDW Coeff of Imtiaz 11.9, Plt Count 290, MPV 9.6, Immature Gran % (Auto) 0.500, Neut % (Auto) 60.6, Lymph % (Auto) 29.7, [place] % (Auto) 6.3, Eos % (Auto) 2.4, Baso % (Auto) 0.5, Absolute Neuts (auto) 5.3, Absolute Lymphs (auto) 2.58, Nucleated RBC % 0 05/26/21 05:35: Sodium 138, Potassium 4.0, Chloride 113 H, Carbon Dioxide 18.0 L, Anion Gap 7, BUN 35 H, Creatinine 0.76, Estim Creat Clear Calc 112.84, Est GFR (MDRD) Af Amer 135, Est GFR (MDRD) Non-Af 111, BUN/Creatinine Ratio 45.9 H, Glucose 68 L, Calcium 9.4, Total Bilirubin 0.50, AST 14 L, ALT 13 L, Alkaline Phosphatase 79, Total Protein 7.3, Albumin 2.8 L, Globulin 4.5 H, Albumin/Globulin Ratio 0.6 L, Folate 12.40 05/26/21 05:35: C-React Prot Ext Range 38.20 H 05/26/21 06:08: POC Glucose 90 Radiography Diagnostic Testing: Radiology Impression Foot X-Ray 05/25/21 18:42 IMPRESSION: 1. No x-ray evidence of active osteomyelitis is seen. No visualized subcutaneous gas. Electronically Signed: Han Mackenzie MD at 19:10 EST Reading Location ID and State: [facility] / [place] , Service support , Physical Exam Narrative General: Alert, Oriented x3, Cooperative HEENT: Atraumatic, PERRLA, EOMI, Normocephalic Oral: No Gingival or Mucosal Lesions/ Ulcerations Neck: Supple, No JVD, Negative Carotid Bruits Lungs: Air entry diminished in bilateral lung bases. No crepitation/rhonchi Cardiovascular: Regular rate, Regular Rhythm, Normal S1, Normal S2, No murmurs Abdomen: Bowel Sounds Present, Soft, Non Tender, Non-Distended : No renal angle tenderness. No suprapubic tenderness. Extremities: No edema, Capillary Refill Less than 3 Seconds Skin: No rashes, No breakdown Musculoskeletal: No Tenderness to Palpation of Joints or Extremities Neurological: Cranial nerves II-XII grossly intact, DTR 2+/4 and Symmetrical, Neuro grossly intact Psych/Mental Status: Normal Affect, Appropriate Assessment & Plan Assessment/Plan (1) Diabetic infection of left foot: PLAN: The patient is a 60 y/o male was admitted with wound on the left foot, plantar aspect between second and third digit. #1. Left foot diabetic infected ulcer: Patient is admitted with infected ulcer over plantar aspect of left foot. It is started with a blister and he continued to work sharpening which resulted to opening and ulceration. There is contiguous cellulitis up to distal half of left foot. Patient had 2 rounds of antibiotics with doxycycline with initial improvement but now after no improvement. MRI done which shows mild bone edema of proximal phalanges of second and third digits raising suspicion of reactive bone edema early osteomyelitis without soft tissue abscess Small intermetatarsal neuroma of second webspace. Patient did also lower extremity arterial duplex scan reported MODE right 1.01, left 0.78. Toe brachial index right 0.36, left 0.2. Biphasic pulse wave in posterior tibialis artery right and left and left dorsalis pedis but triphasic in the right dorsalis pedis. Continue IV Zosyn and vancomycin until culture shows a specific organism. Consult ID when cultures are reported. Preliminary Gram stain and wound culture shows Streptococcus group B 3+. Podiatry consult reviewed. Heel weightbearing in a surgical shoe of left foot. ESR and CRP elevated #2. Diabetes mellitus type II with uncontrolled hyperglycemia with neuropathy: Metformin is held. A1c 11.5%. Magnesium 2.2. Accu-Cheks insulin coverage Humalog sliding scale. Patient is on gabapentin continued #3. Hypertension: Continue home regimen including amlodipine, omlesartan with hold parameters as needed, PRN hydralazine. #4. Hyperlipidemia: continue patient on statin therapy. #5. Former tobacco use: Encourage continued tobacco cessation. #6. Macrocytic anemia: Admission hemoglobin 12.7 with mild MCV elevation. Folate and vitamin B12 normal. Monitor CBC. #7. DVT prophylaxis: SCDs, hold on chemoprophylaxis in case of intervention, pending surgery evaluation as noted. Charges/Coding Visit Charges Inpatient E&M: 54770 Subs Hosp L2
--- NOTE | 2021-05-26 07:29 | MRI_ITS ---
STUDY: MRI LEFT FOREFOOT WITHOUT CONTRAST REASON FOR EXAM: Blisters at the bases of the second, third and fourth toes for about 9 months, evaluate infection. TECHNIQUE: Standardized fat and water weighted pulse sequences were obtained in all 3 orthogonal planes. COMPARISON: Radiographs 05/25/2021. FINDINGS: Normal metatarsophalangeal joint of the hallux. Normal tibial and fibular sesamoids, with normal sesamoids-first metatarsal articulations. Normal interphalangeal joint of the hallux. Normal proximal and distal phalanges of the great toe. Normal medial and lateral heads of the flexor hallucis brevis tendons. Normal flexor and extensor hallucis longus tendons. Normal second through fifth metatarsophalangeal (MTP) joints. Normal interphalangeal joints of the second through fifth toes. There is very mild bone edema in the proximal phalanx of the second toe (inversion recovery sagittal image 16) without corresponding decreased T1 bone marrow signal. There is mild bone edema in the third proximal phalanx (inversion recovery sagittal image 11) without corresponding decreased T1 bone marrow signal. Normal phalanges of the fourth and fifth digits. There is a small intermetatarsal neuroma of the second webspace (T1 short axis image 20) measuring 0.25 cm in transverse dimension. Normal flexor and extensor tendons of the second through fifth toes. Normal metatarsals. There is edema in the intrinsic muscles of the forefoot (inversion recovery sagittal images 8-21). There is edema in the subcutis adipose space, especially at the plantar aspect of the third toe without drainable fluid collection to indicate soft tissue abscess. MRI/Lower Ext/No Jt/w/o IMPRESSION: Mild bone edema of the proximal phalanges of the second and third digits without corresponding decreased T1 bone marrow signal, either reactive bone edema or early osteomyelitis. Edema in the intrinsic muscles of the forefoot. Edema in the subcutis adipose space without demonstrated soft tissue abscess. Small intermetatarsal neuroma of the second webspace. Electronically Signed: Scott Cardoso MD at 12:23 EST ,
--- NOTE | 2021-05-26 07:30 | PCM.CONS.GEN ---
Assessment & Plan Assessment/Plan (1) Type 2 diabetes mellitus with hyperosmolarity without nonketotic hyperglycemic-hyperosmolar coma ([facility]): (2) Non-pressure chronic ulcer of other part of left foot with fat layer exposed: PLAN: Patient examined evaluated, all findings cussed with patient in detail. Radiographs reviewed no evidence of deep abscess, soft tissue emphysema, osteomyelitis. Normal WBC, vital signs stable, elevated ESR, elevated CRP suggestive of acute bacterial infection. I ordered MRI to rule out any evidence of deep abscess or early onset osteomyelitis. Continue n.p.o. status until MRI result is reviewed and decision regarding surgical management is made. Patient will remain heel weightbearing in a surgical shoe to his left foot. Wound was flushed with copious amounts of normal sterile saline and cultured using swab cultures. Continue IV vancomycin and Zosyn, consider infectious disease referral pending culture and MRI results. Left foot dressed with DSD and a 1 layer Wong compression dressing. Noninvasive vascular studies ordered due to some vascular calcification noted on radiographs. Patient will be followed daily at this point to ensure continued resolution. Pending MRI results if there is no evidence of deep infection will likely observe response to IV antibiotics, then upon discharge he will follow up with me in the wound care center and we will consider total contact casting or advanced wound care products upon resolution of his infection. HPI Consult Data Date of Consult: 05/26/21 HPI Narrative HPI Narrative: NAYELI JOSE, is a 60 M who presents with a foot ulceration that subsequently became infected. Patient notes that in mid April he was shoveling snow and an old pair of boots when he developed a blister to his left forefoot. He noted that it subsequently became infected and was treated by urgent care as an outpatient twice with oral antibiotics which did not resolve the issue. Patient is type II diabetic with peripheral neuropathy. He presented to the emergency room yesterday because of worsening redness swelling pain and drainage to his left foot wound. He was subsequently admitted for left diabetic foot wound infection. At current he denies any fever chills nausea vomiting chest pain calf pain shortness of breath. He denies any changes in bowel movements. [facility] Medical History (Updated 05/26/21 @ 07:[address] Pasquale Watters, DION[place]) Diabetes type 2, uncontrolled Former tobacco use High blood pressure High cholesterol Home Medications albuterol sulfate 2 puff INHALATION PRN PRN 05/25/21 [History Last Taken 05/23/21] amlodipine-atorvastatin 10 - 40 tab PO DAILY 05/25/21 [History Last Taken 05/25/21] doxycycline hyclate 100 mg PO BID 05/25/21 [History Last Taken 05/25/21] empagliflozin [Jardiance] 25 mg PO DAILY 05/25/21 [History Last Taken 05/25/21] gabapentin 800 mg PO TID 05/25/21 [History Last Taken 05/25/21] glipizide 5 mg PO BID 05/25/21 [History Last Taken 05/25/21] metformin 1,000 mg PO BID 05/25/21 [History Last Taken 05/25/21] olmesartan 20 mg PO DAILY 05/25/21 [History Last Taken 05/25/21] semaglutide [Ozempic] 1 mg SUBCUT FR 05/25/21 [History Last Taken 05/19/21] trazodone 100 mg PO DAILY 05/25/21 [History Last Taken 05/24/21] Allergy/AdvReac Type Severity Reaction Status Date / Time No Known Allergies Allergy Verified 05/25/21 17:55 Family History (Updated 05/25/21 @ 20:[address] Jessica Rao MD) Mother Hypertension CVA (cerebral vascular accident) Diabetes Family History other Surgical History H/O spinal fusion S/P hardware removal Social History (Updated 05/25/21 @ 20:[address] Jessica Rao MD) household members: spouse Smoking Status: Former smoker how long ago did patient quit smoking: Quit 1987, smoked 1.5 ppd since teen. alcohol intake: never substance use type: does not use Physical Exam Narrative Patient alert oriented to person place and time. Patient seen resting comfortably in bed. Vascular: Dorsalis pedis and posterior tibial pulses palpable 2 out of 4 to bilateral lower extremity. Capillary fill time is brisk to lesser digits bilaterally. Left lower extremity is warmer than the right upon palpation. There is focal edema limited to the left forefoot +1 pitting. Neurologic: Light touch protective sensation diminished bilateral feet. Dermatologic: Full-thickness ulceration noted to the plantar left forefoot. This wound measures approximately 2.0 x 2.2 x 0.5 cm. The wound demonstrates a 50-50 fibronecrotic base. There is significant periwound erythema edema warmth extending to the dorsal forefoot. No evidence of purulent drainage mild serosanguineous drainage noted. Tenderness upon palpation noted. No obvious fluctuance or crepitus upon palpation. Musculoskeletal: No pain with calf squeeze bilateral lower extremity. No evidence of wound forming deformity. Muscular strength full to 5 lateral lower extremity compartments. Lab / Micro Data Result Diagrams: 05/26/21 05:35 05/26/21 05:35 Labs: Laboratory Results - last 24 hr 05/25/21 18:25: WBC 8.6, RBC 3.87 L, Hgb 12.7 L, Hct 37.4 L, MCV 96.6 H, MCH 32.8 H, MCHC 34.0, RDW Std Deviation 41.9, RDW Coeff of Imtiaz 11.9, Plt Count 328, MPV 9.1, Immature Gran % (Auto) 0.600, Neut % (Auto) 74.5 H, Lymph % (Auto) 17.1 L, Desha % (Auto) 5.4, Eos % (Auto) 1.9, Baso % (Auto) 0.5, Absolute Neuts (auto) 6.4, Absolute Lymphs (auto) 1.47, Nucleated RBC % 0, ESR 77 H 05/25/21 18:25: Sodium 135 L, Potassium 4.2, Chloride 101, Carbon Dioxide 25.0, Anion Gap 9, BUN 44 H, Creatinine 1.16, Estim Creat Clear Calc 73.93, Est GFR (MDRD) Af Amer 83, Est GFR (MDRD) Non-Af 69, BUN/Creatinine Ratio 37.9 H, Glucose 200 H, Calcium 9.2, C-React Prot Ext Range 55.30 H 05/25/21 18:25: Lactic Acid 1.0 05/25/21 18:25: Magnesium 2.2 05/25/21 21:10: S.aureus Protein A PCR POSITIVE H, MRSA (PCR) Negative 05/25/21 21:54: POC Glucose 139 H 05/26/21 05:35: WBC 8.7, RBC 3.79 L, Hgb 12.0 L, Hct 36.4 L, MCV 96.0 H, MCH 31.7, MCHC 33.0, RDW Std Deviation 41.5, RDW Coeff of Imtiaz 11.9, Plt Count 290, MPV 9.6, Immature Gran % (Auto) 0.500, Neut % (Auto) 60.6, Lymph % (Auto) 29.7, Desha % (Auto) 6.3, Eos % (Auto) 2.4, Baso % (Auto) 0.5, Absolute Neuts (auto) 5.3, Absolute Lymphs (auto) 2.58, Nucleated RBC % 0 05/26/21 05:35: Sodium 138, Potassium 4.0, Chloride 113 H, Carbon Dioxide 18.0 L, Anion Gap 7, BUN 35 H, Creatinine 0.76, Estim Creat Clear Calc 112.84, Est GFR (MDRD) Af Amer 135, Est GFR (MDRD) Non-Af 111, BUN/Creatinine Ratio 45.9 H, Glucose 68 L, Calcium 9.4, Total Bilirubin 0.50, AST 14 L, ALT 13 L, Alkaline Phosphatase 79, Total Protein 7.3, Albumin 2.8 L, Globulin 4.5 H, Albumin/Globulin Ratio 0.6 L, Folate 12.40 05/26/21 05:35: C-React Prot Ext Range 38.20 H 05/26/21 06:08: POC Glucose 90 Radiology Impression Foot X-Ray 05/25/21 18:42 IMPRESSION: 1. No x-ray evidence of active osteomyelitis is seen. No visualized subcutaneous gas. Electronically Signed: Han Mackenzie MD at 19:10 EST Reading Location ID and State: [facility] / [place] , Service support ,
--- NOTE | 2021-05-26 07:39 | ART_ITS ---
Reason For Study: Ulcer Procedure A bilateral lower extremity continuous wave Doppler with analog waveform analysis,segmental pressures,and ankle brachial indexes without exercise. Left Segmental Pressures Left thigh = 136.mmHg. Left calf = 90mmHg. Left posterior tibial artery = 94mmHg. Left dorsalis pedis artery = 83mmHg. Left digit = 24 mmHg. The left dorsalis pedis waveforms are biphasic. The left posterior tibial artery waveforms are biphasic. Right Segmental Pressures Right brachial= 120mmHg. Right posterior tibial artery = 101mmHg. Right dorsalis pedis artery = 120mmHg. Right digit = 43 mmHg. The right dorsalis pedis waveforms are triphasic. The right posterior tibial artery waveforms are biphasic. Indices The right ankle brachial index by the dorsalis pedis is 1.01. The right ankle brachial index by the posterior tibial artery is 0.84. The right digital-brachial index is 0.36. The left ankle brachial index by the dorsalis pedis is 0.69. The left ankle brachial index by the posterior tibial artery is 0.78. The left digital-brachial index is 0.20. VL/Lower Ext Art Exam w/o Exercis Interpretation Summary Biphasic and triphasic Doppler waveforms are noted at ankle level on the right. Biphasic Doppler waveforms are noted at ankle level on the left. Pulse-volume recordings are dim inished at digital level on the left, but satisfactory at all other levels bilaterally. The restin g right ankle- brachial index is normal. The resting left ankle-brachial index is moderately d iminished. The right digital-brachial index is moderately diminished. The left digital-brachial inde x is severely diminished. Arterial flow appears normal at ankle level on the right, and moderately dimini shed at ankle level on the left. Arterial flow appears moderately diminished at digital level on th e right, and severely diminished at digital level on the left. Ordering Physician: Pasquale Watters Referring Physician: Javy Alcaraz Performed By: Chelsie Lacy RVT
--- NOTE | 2021-05-26 07:44 | WOUNDNOTE ---
Dr Watters had been in to assess the left foot wound. cultures obtained and sent. dressing is D&I.
[2021-05-26 07:45] LABS: Hemoglobin A1c 11.5 % (3.8-5.6)
[2021-05-26 07:56] LABS: Vitamin B12 519 pg/mL (211-911)
--- NOTE | 2021-05-26 10:37 | NURSING ---
pt returned from mri
[2021-05-26] MEDS: Vancomycin IV 1,000 MG/200 ML BAG 200 MG IV ×2 (11:07→22:02)
[2021-05-26 11:16] LABS: Bedside Glucose 129 mg/dL (74-106)
[2021-05-26] MEDS: Glucerna Shake 120 ML LIQUID PO ×2 (13:19→17:06)
--- NOTE | 2021-05-26 14:59 | CASEMGMT ---
Addendum entered by Yi Hudson 05/26/21 15:37: Spoke with , pt is agreeable to [facility] now after he spoke with him. Patient was provided a list of [facility] providers including quality and resource use data and consistent with the patient?s preferred geographic region, medical needs, and insurance network. The patient?s preferred provider is [facility]. TC ethan Feldman at [facility], she will review referral and call JOE CASTILLO back with acceptance. Original Note: JOE CASTILLO in to pt room, pt lying in bed in no distress. Discussed having [facility] for diabetic education and wound care. Pt states he has a BGM and supplies. He does not use insulin. Pt states he checks his blood sugars not often enough. He states [place] good for [place] He states this has scared him enough that he will monitor blood sugars and do better with his diet. He states the veterinary medicine teacher has seen him as well. He states he has good support from too. Pt will be following up at the wound center. Made him aware that normally pts need wound care in between appts. He states his will perform any needed dressing changes. Pt declines HHC now. Discussed with who states he will see pt and he would prefer he have HHC.
[2021-05-26 16:06] LABS: Bedside Glucose 256 mg/dL (74-106)
[2021-05-26] MEDS: 0.9% Saline Lock 10 ML Syringe IV ×2 (22:05→22:18)
[2021-05-26 22:31] LABS: Bedside Glucose 170 mg/dL (74-106)
[2021-05-26] MEDS: Piperacil/Tazobactam 3.375 GM/50 ML ML IV (23:35)
[2021-05-27] MEDS: Piperacil/Tazobactam 3.375 GM/50 ML ML IV (05:26)
[2021-05-27 05:27] VITALS: BP 128/79; PULSE 75; RESP 18; TEMP 36.5; O2SAT 92
[2021-05-27 05:42] LABS: Bedside Glucose 106 mg/dL (74-106)
[2021-05-27 06:29] LABS: Absolute Lymphocyte Count 2.48 X10^3/uL (0.83-4.51); Absolute Neutrophil Count 4.7 X10^3/uL (2.0-7.7); Basophil# 0.04 X10^3/uL; Basophil% 0.5 % (0-1); Eosinophil# 0.22 X10^3/uL; Eosinophils% 2.7 % (0-5); Hematocrit 36.7 % (40-54); Hemoglobin 12.3 g/dL (13.0-16.5); Lymphocyte # 2.48 X10^3/ul (0.83-4.51); Lymphocyte % 30.8 % (19-41); Mean Corp Hgb Conc 33.5 g/dL (32-36); Mean Corpuscular Hgb 32.1 pg (27.0-32.0); Mean Corpuscular Volume 95.8 fL (80-94); Mean Platelet Vol. 9.6 fl (6.2-12.0); Monocyte# 0.61 X10^3/uL; Monocyte% 7.6 % (0-10); NRBC Flagged by Analyzer 0 % (0-5); Neutrophil # 4.67 X10^3/uL (2.7-7.7); Neutrophil % 57.9 % (47-70); Platelet Count 317 K/mm3 (150-450); RBC Distribution Width CV 11.7 % (11.6-14.6); RBC Distribution Width SD 40.8 fl (35.1-43.9); Red Blood Count 3.83 M/mm3 (4.6-6.2); White Blood Count 8.1 K/mm3 (4.4-11.0)
[2021-05-27 06:54] LABS: Anion Gap 7 (5-15); BUN 22 mg/dL (7-18); BUN/Creat Ratio 30.1 RATIO (10-20); Calcium,Total 9.1 mg/dL (8.5-10.1); Chloride 109 mmol/L (98-107); Creatinine, Serum 0.73 mg/dL (0.70-1.30); EST Glomerular Filtration Rate 117 mL/min (>60); Est Glom Filt Rate - Afr Amer 141 mL/min (>60); Estimated Creatinine Clearance 117.48 ml/min; Glucose 94 mg/dL (74-106); Potassium 3.7 mmol/L (3.5-5.1); Sodium Level 138 mmol/L (136-145)
--- NOTE | 2021-05-27 07:32 | PN.HOSP_ITS ---
Subjective Subjective Follow-up for diabetic foot with early osteomyelitis No tachycardia or hypotension. No fever. No leukocytosis. Objective Data Objective Data Vital Signs: Vital Signs Temp Pulse Resp BP Pulse Ox 97.7 F L 75 18 128/79 H 92 05/27/21 05:27 05/27/21 05:27 05/27/21 05:27 05/27/21 05:27 05/27/21 05:27 Oxygen Delivery Method Room Air Weight: 176 lb 12.972 oz Body Mass Index (BMI) 24.0 Intake & Output: Intake and Output for Last 24 Hours 05/25/21 05/26/21 05/27/21 23:59 23:59 23:59 Intake Total 592.08 / 992.08 2730.42 / 2730.42 50 / 50 Balance 592.08 / 992.08 2730.42 / 2730.42 50 / 50 Lab / Micro Data Result Diagrams: 05/27/21 05:25 05/27/21 05:25 Labs: Laboratory Results - last 24 hr 05/26/21 05:35: Hemoglobin A1c 11.5 H 05/26/21 05:35: Vitamin B12 519 05/26/21 11:04: POC Glucose 129 H 05/26/21 16:00: POC Glucose 256 H 05/26/21 22:17: POC Glucose 170 H 05/27/21 05:25: WBC 8.1, RBC 3.83 L, Hgb 12.3 L, Hct 36.7 L, MCV 95.8 H, MCH 32.1 H, MCHC 33.5, RDW Std Deviation 40.8, RDW Coeff of Imtiaz 11.7, Plt Count 317, MPV 9.6, Immature Gran % (Auto) 0.500, Neut % (Auto) 57.9, Lymph % (Auto) 30.8, [place] % (Auto) 7.6, Eos % (Auto) 2.7, Baso % (Auto) 0.5, Absolute Neuts (auto) 4.7, Absolute Lymphs (auto) 2.48, Nucleated RBC % 0 05/27/21 05:25: Sodium 138, Potassium 3.7, Chloride 109 H, Carbon Dioxide 22.0, Anion Gap 7, BUN 22 H, Creatinine 0.73, Estim Creat Clear Calc 117.48, Est GFR (MDRD) Af Amer 141, Est GFR (MDRD) Non-Af 117, BUN/Creatinine Ratio 30.1 H, Glucose 94, Calcium 9.1 05/27/21 05:35: POC Glucose 106 Micro: Microbiology 05/25/21 21:10 Wound - Left Foot Gram Stain - Final 05/25/21 21:10 Wound - Left Foot Wound Culture - Preliminary Streptococcus group B Radiography Diagnostic Testing: Radiology Impression Lower Extremity MRI 05/26/21 07:29 IMPRESSION: Mild bone edema of the proximal phalanges of the second and third digits without corresponding decreased T1 bone marrow signal, either reactive bone edema or early osteomyelitis. Edema in the intrinsic muscles of the forefoot. Edema in the subcutis adipose space without demonstrated soft tissue abscess. Small intermetatarsal neuroma of the second webspace. Electronically Signed: Scott Cardoso MD at 12:23 EST Reading Location ID and State: [address] [place] [address] Tel , Service support , Extremity Arterial Study 05/26/21 07:39 Interpretation Summary Biphasic and triphasic Doppler waveforms are noted at ankle level on the right. Biphasic Doppler waveforms are noted at ankle level on the left. Pulse-volume recordings are diminished at digital level on the left, but satisfactory at all other levels bilaterally. The resting right ankle- brachial index is normal. The resting left ankle-brachial index is moderately diminished. The right digital-brachial index is moderately diminished. The left digital-brachial index is severely diminished. Arterial flow appears normal at ankle level on the right, and moderately diminished at ankle level on the left. Arterial flow appears moderately diminished at digital level on the right, and severely diminished at digital level on the left. Ordering Physician: Pasquale Watters Referring Physician: Javy Alcaraz Performed By: Chelsie Lacy RVT Physical Exam Narrative General: Alert, Oriented x3, Cooperative HEENT: Atraumatic, PERRLA, EOMI, Normocephalic Oral: No Gingival or Mucosal Lesions/ Ulcerations Neck: Supple, No JVD, Negative Carotid Bruits Lungs: Air entry diminished in bilateral lung bases. No crepitation/rhonchi Cardiovascular: Regular rate, Regular Rhythm, Normal S1, Normal S2, No murmurs Abdomen: Bowel Sounds Present, Soft, Non Tender, Non-Distended : No renal angle tenderness. No suprapubic tenderness. Extremities: No edema, Capillary Refill Less than 3 Seconds Skin: No rashes, No breakdown Musculoskeletal: Left foot is under Mian wrap bandage. Dressing is dry. Neurological: Cranial nerves II-XII grossly intact, DTR 2+/4 and Symmetrical, Neuro grossly intact Psych/Mental Status: Normal Affect, Appropriate Assessment & Plan Assessment/Plan (1) Diabetic infection of left foot: PLAN: The patient is a 60 y/o male was admitted with wound on the left foot, plantar aspect between second and third digit. #1. Left foot diabetic infected ulcer: Patient is admitted with infected ulcer over plantar aspect of left foot. It is started with a blister and he continued to work sharpening which resulted to opening and ulceration. There is tami guous cellulitis up to distal half of left foot. Patient had 2 rounds of antibiotics with doxycycline with initial improvement but now after no improvement. MRI done which shows mild bone edema of proximal phalanges of second and third digits raising suspicion of reactive bone edema early osteomye litis without soft tissue abscess Small intermetatarsal neuroma of second webspace. Patient did also lower extremity arterial duplex scan reported MODE right 1.01, left 0.78. Toe brachial index right 0.36, left 0.2. Biphasic pulse wave in posterior tibialis artery right and left and left dorsalis pedis but triphasic in the right dorsalis pedis. Continue IV Zosyn and vancomycin until culture shows a specific organism. Consult ID when cultures are reported. Preliminary Gram stain and wound culture shows Streptococcus group B 3+. Podiatry consult reviewed. Heel weightbearing in a surgical shoe of left foot. ESR and CRP elevated 05/27: Wound culture growing strep group B agalactiae 3+. Sensitive to ceftriaxone ampicillin. I discussed with ID weight loss consultant and advised IV Unasyn. Patient is diabetic and high risk for anaerobic infection along with gram- positive cocci #2. Diabetes mellitus type II with uncontrolled hyperglycemia with neuropathy: Metformin is held. A1c 11.5%. Magnesium 2.2. Accu-Cheks insulin coverage Humalog sliding scale. Patient is on gabapentin continued 05/27: Glucose in a.m. high 312. Fluctuates. Lantus 10 units ordered in the morning. Patient refusing for insulin. He wants to continue oral home medications therefore empagliflozin 25 mg and glipizide 5 mg twice daily resumed. #3. Hypertension: Continue home regimen including amlodipine, omlesartan with hold parameters as needed, PRN hydralazine. #4. Hyperlipidemia: continue patient on statin therapy. #5. Former tobacco use: Encourage continued tobacco cessation. #6. Macrocytic anemia: Admission hemoglobin 12.7 with mild MCV elevation. Folate and vitamin B12 normal. Monitor CBC. #7. DVT prophylaxis: SCDs, hold on chemoprophylaxis in case of intervention, pending surgery evaluation as noted. Charges/Coding Visit Charges Inpatient E&M: 93544 Subs Hosp L2
[2021-05-27 08:21] VITALS: O2SAT 92
[2021-05-27 08:31] VITALS: BP 109/76; PULSE 67; RESP 16; TEMP 36.8; O2SAT 96
[2021-05-27] MEDS: Vancomycin IV 1,000 MG/200 ML BAG 200 MG IV (09:35)
[2021-05-27 10:47] LABS: Vancomycin, Trough Level 14.4 ug/mL (5.0-15.0)
[2021-05-27 11:21] LABS: Bedside Glucose 310 mg/dL (74-106)
--- NOTE | 2021-05-27 11:26 | PCM.RX.CS ---
Consult Pharmacy has been consulted to manage selected antiobiotic: Vancomycin Type of Consult: Follow-up Suspected Infection: Skin/Soft tissue Prior Doses of Antibiotics Received/Current Regimen: Has been on 1gm iv q12h. Labs: Sodium 138 mmol/L (136-145) 05/27/21 05:25 Potassium 3.7 mmol/L (3.5-5.1) 05/27/21 05:25 Chloride 109 mmol/L (98-107) H 05/27/21 05:25 Carbon Dioxide 22.0 mmol/L (21.0-32.0) 05/27/21 05:25 Anion Gap 7 (5-15) 05/27/21 05:25 BUN 22 mg/dL (7-18) H 05/27/21 05:25 Creatinine 0.73 mg/dL (0.70-1.30) 05/27/21 05:25 Est GFR (MDRD) Af Amer 141 mL/min (>60) 05/27/21 05:25 Est GFR (MDRD) Non-Af 117 mL/min (>60) 05/27/21 05:25 BUN/Creatinine Ratio 30.1 RATIO (10-20) H 05/27/21 05:25 Glucose 94 mg/dL (74-106) 05/27/21 05:25 Vancomycin Trough 14.4 ug/mL (5.0-15.0) 05/27/21 09:38 Microbiology: Microbiology 05/25/21 21:10 Wound - Left Foot Gram Stain - Final 05/25/21 21:10 Wound - Left Foot Wound Culture - Final Streptococcus agalactiae (B) Weight used for dosin.2 kg Estimated Creatinine Clearance: >120ml/min Goal Trough: 15-20 mcg/mL Pharmacy Plan for Drug Dosing: Trough today 14.4 and slightly below desired range of 15-20mcg/ml. Renal Cr improved, 0.73 today with CrCl >120ml/min. Will increase dose to 1250mg iv q12h. New trough level ordered for before 4th dose of new dosing schedule. Pharmacy Service will continue to monitor and adjust dosing as required. Follow-Up Labs: Trough Vancomycin - 3.14.22 @0930 before 1000 dose
[2021-05-27 11:32] VITALS: BP 135/77; PULSE 78; RESP 16; TEMP 36.5; O2SAT 96
[2021-05-27 16:20] LABS: Bedside Glucose 279 mg/dL (74-106)
[2021-05-27 16:28] VITALS: BP 129/77; PULSE 84; RESP 16; TEMP 36.6; O2SAT 95
[2021-05-27 21:34] VITALS: BP 141/90; PULSE 76; RESP 18; TEMP 36.4; O2SAT 92
[2021-05-27 21:51] LABS: Bedside Glucose 215 mg/dL (74-106)
[2021-05-28 05:55] VITALS: BP 124/87; PULSE 72; RESP 18; TEMP 36.3; O2SAT 98
[2021-05-28 06:44] LABS: Absolute Lymphocyte Count 2.74 X10^3/uL (0.83-4.51); Absolute Neutrophil Count 4.3 X10^3/uL (2.0-7.7); Basophil# 0.05 X10^3/uL; Basophil% 0.6 % (0-1); Eosinophil# 0.23 X10^3/uL; Eosinophils% 2.9 % (0-5); Lymphocyte # 2.74 X10^3/ul (0.83-4.51); Lymphocyte % 34.6 % (19-41); Mean Corp Hgb Conc 34.3 g/dL (32-36); Mean Corpuscular Hgb 32.9 pg (27.0-32.0); Mean Corpuscular Volume 95.9 fL (80-94); Mean Platelet Vol. 9.5 fl (6.2-12.0); Monocyte# 0.54 X10^3/uL; Monocyte% 6.8 % (0-10); NRBC Flagged by Analyzer 0 % (0-5); Neutrophil # 4.32 X10^3/uL (2.7-7.7); Neutrophil % 54.7 % (47-70); Platelet Count 293 K/mm3 (150-450); RBC Distribution Width CV 11.6 % (11.6-14.6); Red Blood Count 3.65 M/mm3 (4.6-6.2); White Blood Count 7.9 K/mm3 (4.4-11.0)
[2021-05-28 07:12] LABS: Anion Gap 8 (5-15); BUN 24 mg/dL (7-18); BUN/Creat Ratio 33.1 RATIO (10-20); Calcium,Total 9.2 mg/dL (8.5-10.1); Chloride 109 mmol/L (98-107); Creatinine, Serum 0.72 mg/dL (0.70-1.30); EST Glomerular Filtration Rate 118 mL/min (>60); Est Glom Filt Rate - Afr Amer 143 mL/min (>60); Estimated Creatinine Clearance 119.11 ml/min; Glucose 113 mg/dL (74-106); Potassium 3.6 mmol/L (3.5-5.1); Sodium Level 139 mmol/L (136-145)
[2021-05-28 07:26] LABS: Bedside Glucose 141 mg/dL (74-106)
[2021-05-28 08:48] VITALS: BP 130/72; PULSE 78; RESP 16; TEMP 36.8; O2SAT 97
--- NOTE | 2021-05-28 10:39 | PN.HOSP_ITS ---
Subjective Subjective Follow-up for left diabetic ulcer. Seen and examined. No fever. Wound examined Objective Data Objective Data Vital Signs: Vital Signs Temp Pulse Resp BP Pulse Ox 98.2 F 78 16 130/72 H 97 05/28/21 08:48 05/28/21 08:48 05/28/21 08:48 05/28/21 08:48 05/28/21 08:48 Oxygen Delivery Method Room Air Weight: 175 lb Body Mass Index (BMI) 24.0 Intake & Output: Intake and Output for Last 24 Hours 05/26/21 05/27/21 05/29/21 23:59 23:59 00:59 Intake Total 2730.42 / 2730.42 1724 / 1724 112 / 112 Balance 2730.42 / 2730.42 1724 / 1724 112 / 112 Lab / Micro Data Result Diagrams: 05/28/21 05:13 05/28/21 05:13 Labs: Laboratory Results - last 24 hr 05/27/21 09:38: Vancomycin Trough 14.4 05/27/21 11:14: POC Glucose 310 H 05/27/21 16:15: POC Glucose 279 H 05/27/21 21:37: POC Glucose 215 H 05/28/21 05:13: WBC 7.9, RBC 3.65 L, Hgb 12.0 L, Hct 35.0 L, MCV 95.9 H, MCH 32.9 H, MCHC 34.3, RDW Std Deviation 41.0, RDW Coeff of Imtiaz 11.6, Plt Count 293, MPV 9.5, Immature Gran % (Auto) 0.400, Neut % (Auto) 54.7, Lymph % (Auto) 34.6, [place] % (Auto) 6.8, Eos % (Auto) 2.9, Baso % (Auto) 0.6, Absolute Neuts (auto) 4.3, Absolute Lymphs (auto) 2.74, Nucleated RBC % 0 05/28/21 05:13: Sodium 139, Potassium 3.6, Chloride 109 H, Carbon Dioxide 22.0, Anion Gap 8, BUN 24 H, Creatinine 0.72, Estim Creat Clear Calc 119.11, Est GFR (MDRD) Af Amer 143, Est GFR (MDRD) Non-Af 118, BUN/Creatinine Ratio 33.1 H, Glucose 113 H, Calcium 9.2 05/28/21 06:04: POC Glucose 141 H Micro: Microbiology 05/25/21 21:10 Wound - Left Foot Gram Stain - Final 05/25/21 21:10 Wound - Left Foot Wound Culture - Final Streptococcus agalactiae (B) 05/25/21 21:10 Wound - Left Foot Anaerobic Culture - Preliminary 05/25/21 18:30 Blood Culture (Wb) - Anticubital Right Blood Culture - Preliminary No growth in 48 hours. 05/25/21 18:25 Blood Culture (Wb) - Anticubital Left Blood Culture - P reliminary No growth in 48 hours. Physical Exam Narrative General: Alert, Oriented x3, Cooperative HEENT: Atraumatic, PERRLA, EOMI, Normocephalic Oral: No Gingival or Mucosal Lesions/ Ulcerations Neck: Supple, No JVD, Negative Carotid Bruits Lungs: Air entry diminished in bilateral lung bases. No crepitation/rhonchi Cardiovascular: Regular rate, Regular Rhythm, Normal S1, Normal S2, No murmurs Abdomen: Bowel Sounds Present, Soft, Non Tender, Non-Distended : No renal angle tenderness. No suprapubic tenderness. Extremities: No edema, Capillary Refill Less than 3 Seconds Skin: No rashes, No breakdown Musculoskeletal: About 2 cm ulcer with healthy beefy red granulation tissue over base, thickened margin plantar aspect between third and fourth toe. Mild ulceration over third and fourth toe space. No discharge. Neurological: Cranial nerves II-XII grossly intact, DTR 2+/4 and Symmetrical, Neuro grossly intact Psych/Mental Status: Normal Affect, Appropriate Assessment & Plan Assessment/Plan (1) Diabetic infection of left foot: PLAN: The patient is a 60 y/o male was admitted with wound on the left foot, plantar aspect between second and third digit. #1. Left foot diabetic infected ulcer: Patient is admitted with infected ulcer over plantar aspect of left foot. It is started with a blister and he continued to work sharpening which resulted to opening and ulceration. There is contiguous cellulitis up to distal half of left foot. Patient had 2 rounds of antibiotics with doxycycline with initial improvement but now after no improvement. MRI done which shows mild bone edema of proximal phalanges of second and third digits raising suspicion of reactive bone edema early ost eomyelitis without soft tissue abscess Small intermetatarsal neuroma of second webspace. Patient did also lower extremity arterial duplex scan reported MODE right 1.01, left 0.78. Toe brachial index right 0.36, left 0.2. Biphasic pulse wave in posterior tibialis artery right and left and left dorsalis pedis but triphasic in the right dorsalis pedis. Continue IV Zosyn and vancomycin until culture shows a specific organism. Consult ID when cultures are reported. Preliminary Gram stain and wound culture shows Streptococcus group B 3+. Podiatry consult reviewed. Heel weightbearing in a surgical shoe of left foot. ESR and CRP elevated 05/27: Wound culture growing strep group B agalactiae 3+. Sensitive to ceftriaxone ampicillin. I discussed with ID human resource consultant and advised IV Unasyn. Patient is diabetic and high risk for anaerobic infection along with gram- positive cocci 05/28: I updated about the culture of the wound to the patient. Blood cultures x2 is negative at 48 hours. ID consult tomorrow a.m. Possible discharge on oral antibiotics as recommended by ID. #2. Diabetes mellitus type II with uncontrolled hyperglycemia with neuropathy: Metformin is held. A1c 11.5%. Magnesium 2.2. Accu-Cheks insulin coverage Humalog sliding scale. Patient is on gabapentin continued 05/27: Glucose in a.m. high 312. Fluctuates. Lantus 10 units ordered in the morning. Patient refusing for insulin. He wants to continue oral home medications therefore empagliflozin 25 mg and glipizide 5 mg twice daily resumed. 06/14: Glucose is better controlled 114 in the morning today. Patient refusing for insulin. #3. Hypertension: Continue home regimen including amlodipine, omlesartan with hold parameters as needed, PRN hydralazine. #4. Hyperlipidemia: continue patient on statin therapy. #5. Former tobacco use: Encourage continued tobacco cessation. #6. Macrocytic anemia: Admission hemoglobin 12.7 with mild MCV elevation. Folate and vitamin B12 normal. Monitor CBC. #7. DVT prophylaxis: SCDs, hold on chemoprophylaxis in case of intervention, pending surgery evaluation as noted. Discharge plan: Discharge tomorrow on oral antibiotic after ID consult Charges/Coding Visit Charges Inpatient E&M: 74359 Subs Hosp L2
--- NOTE | 2021-05-28 11:08 | PCM.PROGNOTE ---
Subjective Subjective This 60-year-old male was seen bedside for a left foot ulceration with underlying infection. He denies any pain to the site. He he denies any fever chills nausea vomiting chest pain calf pain shortness of breath. Patient notes that his blood sugar got away from his control over the past several months, but plans to keep better control of it to prevent any additional complications from poorly controlled diabetes. No other complaints. Objective Data Objective Data Vital Signs: Vital Signs Temp Pulse Resp BP Pulse Ox 98.2 F 78 16 130/72 H 97 05/28/21 08:48 05/28/21 08:48 05/28/21 08:48 05/28/21 08:48 05/28/21 08:48 Oxygen Delivery Method Room Air Weight: 79.379 kg Body Mass Index (BMI) 24.0 Intake & Output: Intake and Output for Last 24 Hours 05/26/21 05/27/21 05/29/21 23:59 23:59 00:59 Intake Total 2730.42 / 2730.42 1724 / 1724 112 / 112 Balance 2730.42 / 2730.42 1724 / 1724 112 / 112 Lab / Micro Data Result Diagrams: 05/28/21 05:13 05/28/21 05:13 Labs: Laboratory Results - last 24 hr 05/27/21 09:38: Vancomycin Trough 14.4 05/27/21 11:14: POC Glucose 310 H 05/27/21 16:15: POC Glucose 279 H 05/27/21 21:37: POC Glucose 215 H 05/28/21 05:13: WBC 7.9, RBC 3.65 L, Hgb 12.0 L, Hct 35.0 L, MCV 95.9 H, MCH 32.9 H, MCHC 34.3, RDW Std Deviation 41.0, RDW Coeff of Imtiaz 11.6, Plt Count 293, MPV 9.5, Immature Gran % (Auto) 0.400, Neut % (Auto) 54.7, Lymph % (Auto) 34.6, [place] % (Auto) 6.8, Eos % (Auto) 2.9, Baso % (Auto) 0.6, Absolute Neuts (auto) 4.3, Absolute Lymphs (auto) 2.74, Nucleated RBC % 0 05/28/21 05:13: Sodium 139, Potassium 3.6, Chloride 109 H, Carbon Dioxide 22.0, Anion Gap 8, BUN 24 H, Creatinine 0.72, Estim Creat Clear Calc 119.11, Est GFR (MDRD) Af Amer 143, Est GFR (MDRD) Non-Af 118, BUN/Creatinine Ratio 33.1 H, Glucose 113 H, Calcium 9.2 05/28/21 06:04: POC Glucose 141 H Micro: Microbiology 05/25/21 21:10 Wound - Left Foot Gram Stain - Final 05/25/21 21:10 Wound - Left Foot Wound Culture - Final Streptococcus agalactiae (B) 05/25/21 21:10 Wound - Left Foot Anaerobic Culture - Preliminary 05/25/21 18:30 Blood Culture (Wb) - Anticubital Right Blood Culture - Preliminary No growth in 48 hours. 05/25/21 18:25 Blood Culture (Wb) - Anticubital Left Blood Culture - Preliminary No growth in 48 hours. Physical Exam Narrative Patient alert oriented to person place and time. Patient seen resting comfortably in bed. Vascular: Dorsalis pedis and posterior tibial pulses palpable 2 out of 4 to bilateral lower extremity. Capillary fill time is brisk to lesser digits bilaterally. Left lower extremity is warmer than the right upon palpation. There is focal edema limited to the left forefoot +1 pitting. Neurologic: Light touch protective sensation diminished bilateral feet. Dermatologic: Full-thickness ulceration noted to the plantar left forefoot. This wound measures approximately 2.0 x 2.2 x 0.5 cm. The wound demonstrates a 50-50 fibronecrotic base. There is significant periwound erythema edema warmth extending to the dorsal forefoot. No evidence of purulent drainage mild serosanguineous drainage noted. Tenderness upon palpation noted. No obvious fluctuance or crepitus upon palpation. Musculoskeletal: No pain with calf squeeze bilateral lower extremity. No evidence of wound forming deformity. Muscular strength full to 5 lateral lower extremity compartments. Assessment & Plan Assessment/Plan (1) Type 2 diabetes mellitus with hyperosmolarity without nonketotic hyperglycemic-hyperosmolar coma ([facility]): (2) Non-pressure chronic ulcer of other part of left foot with fat layer exposed: PLAN: Patient examined evaluated, all findings cussed with patient in detail. Radiographs reviewed no evidence of deep abscess, soft tissue emphysema, osteomyelitis. MRI was negative for any obvious osteomyelitis or deep soft tissue abscess. There was noted to be some marrow edema along the course of the third metatarsal head and proximal phalangeal base. This may be reactive edema or possible early osteomyelitis. Patient clinically demonstrates mild improvement in his erythema to his dorsal forefoot. Since there has been minimal resolution I discussed with patient in detail performing a third metatarsal head resection for infection clearance, bone biopsy and culture which would also serve to offload the ulcer site allowed to heal rapidly. All inherent risks and benefits of the procedure were discussed with patient in detail. We will plan to perform this procedure on 05/29/2021. Patient will be kept n.p.o. at midnight. Infectious disease see the on Saturday we will await bone cultures to see if any long-term IV antibiotics would be warranted. Patient's hemoglobin A1c was greater than 11, patient discussed with meat inspector how to improve this, he appears motivated to do so. Patient receiving IV Unasyn at this time as initial cultures grew streptococcus agalactiae. Planning for partial third metatarsal head resection tomorrow.
[2021-05-28 15:47] VITALS: BP 153/94; PULSE 79; RESP 18; TEMP 36.6; O2SAT 98
[2021-05-28 16:06] LABS: Bedside Glucose 245 mg/dL (74-106)
[2021-05-28] MEDS: 0.9% Saline Lock 10 ML Syringe IV ×2 (17:26→20:51)
[2021-05-28 20:36] VITALS: BP 134/88; PULSE 79; RESP 18; TEMP 36.5; O2SAT 95
[2021-05-28 21:15] LABS: Bedside Glucose 263 mg/dL (74-106)
[2021-05-28 23:13] VITALS: BP 102/75; PULSE 71; RESP 18; TEMP 36.8; O2SAT 92
[2021-05-29 05:15] VITALS: BP 113/67; PULSE 73; RESP 18; TEMP 36.3; O2SAT 92
[2021-05-29 05:31] LABS: Bedside Glucose 138 mg/dL (74-106)
--- NOTE | 2021-05-29 06:00 | EKG12_ITS ---
Test Reason : AM EKG Blood Pressure : / mmHG Vent. Rate : 066 BPM Atrial Rate : 066 BPM P-R Int : 166 ms QRS Dur : 094 ms QT Int : 384 ms P-R-T Axes : 055 080 027 degrees QTc Int : 402 ms Normal sinus rhythm Normal ECG No previous ECGs available Confirmed by MYA HALL, CHAPITO ([id number]), state editor LORE ROGERS ([id number]) on 05/29/2021 11:20:37 AM Referred By: Confirmed By:CHAPITO ROQUE MD
[2021-05-29 08:52] VITALS: BP 120/66; PULSE 66; RESP 18; TEMP 36.6; O2SAT 97
[2021-05-29 08:57] VITALS: BMI 24.3
--- NOTE | 2021-05-29 09:33 | WOUNDNOTE ---
Pt states he is not having surgery today. States the doctor will be coming in around noon to talk to him. dressing is dry and intact at this time. will try to assess the foot with podiatry. Pt states I hope that means I can just go home today then.
[2021-05-29 09:53] LABS: Absolute Lymphocyte Count 1.97 X10^3/uL (0.83-4.51); Absolute Neutrophil Count 4.3 X10^3/uL (2.0-7.7); Basophil# 0.04 X10^3/uL; Basophil% 0.6 % (0-1); Eosinophil# 0.24 X10^3/uL; Eosinophils% 3.4 % (0-5); Hematocrit 35.7 % (40-54); Hemoglobin 12.4 g/dL (13.0-16.5); Lymphocyte # 1.97 X10^3/ul (0.83-4.51); Lymphocyte % 28.1 % (19-41); Mean Corp Hgb Conc 34.7 g/dL (32-36); Mean Corpuscular Volume 94.9 fL (80-94); Mean Platelet Vol. 8.8 fl (6.2-12.0); Monocyte# 0.43 X10^3/uL; Monocyte% 6.1 % (0-10); NRBC Flagged by Analyzer 0 % (0-5); Neutrophil # 4.31 X10^3/uL (2.7-7.7); Neutrophil % 61.4 % (47-70); Platelet Count 276 K/mm3 (150-450); RBC Distribution Width CV 11.6 % (11.6-14.6); RBC Distribution Width SD 40.1 fl (35.1-43.9); Red Blood Count 3.76 M/mm3 (4.6-6.2)
[2021-05-29 10:26] LABS: Vancomycin, Trough Level 3.6 ug/mL (5.0-15.0)
[2021-05-29 10:29] LABS: Anion Gap 6 (5-15); BUN 19 mg/dL (7-18); Calcium,Total 9.2 mg/dL (8.5-10.1); Chloride 110 mmol/L (98-107); Creatinine, Serum 0.66 mg/dL (0.70-1.30); EST Glomerular Filtration Rate 132 mL/min (>60); Est Glom Filt Rate - Afr Amer 160 mL/min (>60); Estimated Creatinine Clearance 129.94 ml/min; Glucose 157 mg/dL (74-106); Potassium 3.9 mmol/L (3.5-5.1); Sodium Level 138 mmol/L (136-145)
--- NOTE | 2021-05-29 11:57 | PCM.PN.HOSP ---
Subjective Subjective Denies any complaints. Objective Data Objective Data Vital Signs: Vital Signs Temp Pulse Resp BP Pulse Ox 36.6 C 66 18 120/66 97 05/29/21 08:52 05/29/21 08:52 05/29/21 08:52 05/29/21 08:52 05/29/21 08:52 Oxygen Delivery Method Room Air Weight: 79 kg Body Mass Index (BMI) 24.3 Intake & Output: Intake and Output for Last 24 Hours 05/27/21 05/28/21 05/29/21 22:59 23:59 23:59 Intake Total 224 / 224 Balance 224 / 224 Lab / Micro Data Result Diagrams: 05/29/21 09:44 05/29/21 09:44 Labs: Laboratory Results - last 24 hr 05/28/21 15:58: POC Glucose 245 H 05/28/21 20:49: POC Glucose 263 H 05/29/21 05:21: POC Glucose 138 H 05/29/21 09:44: Vancomycin Trough 3.6 L 05/29/21 09:44: WBC 7.0, RBC 3.76 L, Hgb 12.4 L, Hct 35.7 L, MCV 94.9 H, MCH 33.0 H, MCHC 34.7, RDW Std Deviation 40.1, RDW Coeff of Imtiaz 11.6, Plt Count 276, MPV 8.8, Immature Gran % (Auto) 0.400, Neut % (Auto) 61.4, Lymph % (Auto) 28.1, [place] % (Auto) 6.1, Eos % (Auto) 3.4, Baso % (Auto) 0.6, Absolute Neuts (auto) 4.3, Absolute Lymphs (auto) 1.97, Nucleated RBC % 0 05/29/21 09:44: Sodium 138, Potassium 3.9, Chloride 110 H, Carbon Dioxide 22.0, Anion Gap 6, BUN 19 H, Creatinine 0.66 L, Estim Creat Clear Calc 129.94, Est GFR (MDRD) Af Amer 160, Est GFR (MDRD) Non-Af 132, BUN/Creatinine Ratio 29.0 H, Glucose 157 H, Calcium 9.2 Micro: Microbiology 05/28/21 19:00 Nasal Secretion SARS-CoV-2 Antigen (Rapid) - Final 05/25/21 21:10 Wound - Left Foot Gram Stain - Final 05/25/21 21:10 Wound - Left Foot Wound Culture - Final Streptococcus agalactiae (B) 05/25/21 21:10 Wound - Left Foot Anaerobic Culture - Preliminary 05/25/21 18:30 Blood Culture (Wb) - Anticubital Right Blood Culture - Preliminary No growth in 48 hours. 05/25/21 18:25 Blood Culture (Wb) - Anticubital Left Blood Culture - Preliminary No growth in 48 hours. Physical Exam Const no apparent distress Resp normal respiratory effort, no retractions, no use of accessory muscles and clear to auscultation bilaterally Cardio regular rate, regular rhythm, S1 normal heart sound and S2 normal heart sound GI normal to inspection, nondistended, normoactive bowel sounds, soft to palpation, non-tender and non-distended Extremity Extremity Narrative: left ankle and foot wrapped. Assessment & Plan Assessment/Plan (1) Diabetic infection of left foot: PLAN: 1. Left foot diabetic infected ulcer Surgery for 3rd metatarsal head resection cancelled today continue abx ID consulted on ampicillin/sulbactam Group B strep 2. PAD complicates mgmt and recovery severe PAD in left digital branch 3. DM2 fair control on empagliflozin and glipizide 4. VTE prophylaxis: SCDs Charges/Coding Visit Charges Inpatient E&M: 97671 Subs Hosp L2
--- NOTE | 2021-05-29 12:19 | PN_ITS ---
Objective Data Objective Data Vital Signs: Vital Signs Temp Pulse Resp BP Pulse Ox 97.8 F 66 18 120/66 97 05/29/21 08:52 05/29/21 08:52 05/29/21 08:52 05/29/21 08:52 05/29/21 08:52 Oxygen Delivery Method Room Air Weight: 79 kg Body Mass Index (BMI) 24.3 Intake & Output: Intake and Output for Last 24 Hours 05/27/21 05/28/21 05/29/21 22:59 23:59 23:59 Intake Total 224 / 224 Balance 224 / 224 Lab / Micro Data Result Diagrams: 05/29/21 09:44 05/29/21 09:44 Labs: Laboratory Results - last 24 hr 05/28/21 15:58: POC Glucose 245 H 05/28/21 20:49: POC Glucose 263 H 05/29/21 05:21: POC Glucose 138 H 05/29/21 09:44: Vancomycin Trough 3.6 L 05/29/21 09:44: WBC 7.0, RBC 3.76 L, Hgb 12.4 L, Hct 35.7 L, MCV 94.9 H, MCH 33.0 H, MCHC 34.7, RDW Std Deviation 40.1, RDW Coeff of Imtiaz 11.6, Plt Count 276, MPV 8.8, Immature Gran % (Auto) 0.400, Neut % (Auto) 61.4, Lymph % (Auto) 28.1, [place] % (Auto) 6.1, Eos % (Auto) 3.4, Baso % (Auto) 0.6, Absolute Neuts (auto) 4.3, Absolute Lymphs (auto) 1.97, Nucleated RBC % 0 05/29/21 09:44: Sodium 138, Potassium 3.9, Chloride 110 H, Carbon Dioxide 22.0, Anion Gap 6, BUN 19 H, Creatinine 0.66 L, Estim Creat Clear Calc 129.94, Est GFR (MDRD) Af Amer 160, Est GFR (MDRD) Non-Af 132, BUN/Creatinine Ratio 29.0 H, Glucose 157 H, Calcium 9.2 Micro: Microbiology 05/28/21 19:00 Nasal Secretion SARS-CoV-2 Antigen (Rapid) - Final 05/25/21 21:10 Wound - Left Foot Gram Stain - Final 05/25/21 21:10 Wound - Left Foot Wound Culture - Final Streptococcus agalactiae (B) 05/25/21 21:10 Wound - Left Foot Anaerobic Culture - Preliminary 05/25/21 18:30 Blood Culture (Wb) - Anticubital Right Blood Culture - Preliminary No growth in 48 hours. 05/25/21 18:25 Blood Culture (Wb) - Anticubital Left Blood Culture - Preliminary No growth in 48 hours. Physical Exam Narrative Patient alert oriented to person place and time. Patient seen resting comfortably in bed. Vascular: Dorsalis pedis and posterior tibial pulses palpable 2 out of 4 to bilateral lower extremity. Capillary fill time is brisk to lesser digits bilaterally. Left lower extremity is warmer than the right upon palpation. There is focal edema limited to the left forefoot +1 pitting. Neurologic: Light touch protective sensation diminished bilateral feet. Dermatologic: Full-thickness ulceration noted to the plantar left forefoot. T his wound measures approximately 2.0 x 2.2 x 0.5 cm. The wound demonstrates a 50-50 fibronecrotic base. There is significantly improved/resolving periwound erythema, edema, warmth extending to the dorsal forefoot. No evidence of purulent drainage mild serosanguineous drainage noted. Tenderness upon palpation noted. No obvious fluctuance or crepitus upon palpation. Musculoskeletal: No pain with calf squeeze bilateral lower extremity. No evidence of wound forming deformity. Muscular strength full to 5 lateral lower extremity compartments. Assessment & Plan Assessment/Plan (1) Type 2 diabetes mellitus with hyperosmolarity without nonketotic hyperglycemic-hyperosmolar coma ([facility]): (2) Non-pressure chronic ulcer of other part of left foot with fat layer exposed: PLAN: Patient examined evaluated, all findings cussed with patient in detail. Radiographs reviewed no evidence of deep abscess, soft tissue emphysema, osteomyelitis. MRI was negative for any obvious osteomyelitis or deep soft tissue abscess. There was noted to be some marrow edema along the course of the third metatarsal head and proximal phalangeal base. This may be reactive edema or possible early osteomyelitis. Patient's infection clearing clinically. After further review of non-invasive vascular studies, he has a TBI of 0.2 on the left side which signifies moderate to severe peripheral arterial disease. No surgery indicated at this time as he is improving clinically and any intervention would pose a significant risk for healing. Dressing changed today, betadine paint w/ DSD, no compression. Discussed dressing changes daily with patient's , she will apply betadine paint to affected sites w/ 4x4s, kerlix and tape. Patient will remain heel weightbearing in surgical shoe until follow up in [facility] on Saturday of next week Patient currently receiving IV unasyn for strep agalactiae, will await for ID abx rcommendations. Patient will follow up with vascular surgery (Dr. Maciel) on an outpatient basis. Patient stable for d/c from my standpoint.
--- NOTE | 2021-05-29 13:16 | CON.PCM.ID_ITS ---
Assessment & Plan Assessment/Plan (1) Uncontrolled type 2 diabetes mellitus: (2) Diabetic infection of left foot: PLAN: DM neuropathy, wound cx with GBS. Reviewed risks and benefits, pt wishes to avoid iv abx. Will followup with podiatry and vascular after discharge. Having some diarrhea with unasyn now. Will order 6 weeks keflex and shorter course of flagyl po for discharge. ID followup in 2 weeks. Will order covid booster for here, last dose in 06/2020. Will follow, thank you, d/w mental health case manager HPI Consult Data Date of Consult: 05/29/21 HPI Narrative HPI Narrative: NAYELI JOSE, is a 60 M who presented 05/25 with about 2-3 weeks of progressive L plantar foot redness, swelling, ulceration, and drainage. Thinks it started with a shoe rubbing. No fever. Has DM neuropathy, no pain. Came to ED, admitted on vanc/zosyn, seen by podiatry, MRI done. Now narrowed to unasyn, feeling much better, but is having some diarrhea. No abd pain, no blood in stool. Full ROS performed and neg except as noted above. PENDING SALE TO [facility] Medical History Arthritis Back pain due to injury Chronic cough Diabetes Diabetes type 2, uncontrolled Former tobacco use High blood pressure High cholesterol Restless legs Home Medications albuterol sulfate 2 puff INHALATION PRN PRN 05/25/21 [History Last Taken 05/23/21] amlodipine-atorvastatin 10 - 40 tab PO DAILY 05/25/21 [History Last Taken 05/25/21] doxycycline hyclate 100 mg PO BID 05/25/21 [History Last Taken 05/25/21] empagliflozin [Jardiance] 25 mg PO DAILY 05/25/21 [History Last Taken 05/25/21] gabapentin 800 mg PO TID 05/25/21 [History Last Taken 05/25/21] glipizide 5 mg PO BID 05/25/21 [History Last Taken 05/25/21] metformin 1,000 mg PO BID 05/25/21 [History Last Taken 05/25/21] olmesartan 20 mg PO DAILY 05/25/21 [History Last Taken 05/25/21] semaglutide [Ozempic] 1 mg SUBCUT FR 05/25/21 [History Last Taken 05/19/21] trazodone 100 mg PO DAILY 05/25/21 [History Last Taken 05/24/21] cephalexin 500 mg PO TID #114 cap 05/29/21 [Rx Last Taken Unknown] metronidazole 500 mg PO TID #30 tab 05/29/21 [Rx Last Taken Unknown] Allergy/AdvReac Type Severity Reaction Status Date / Time No Known Allergies Allergy Verified 05/25/21 17:55 Family History (Updated 05/25/21 @ 20:[address] Jessica Rao MD) Mother Hypertension CVA (cerebral vascular accident) Diabetes Family History other Surgical History H/O spinal fusion S/P hardware removal Social History (Updated 05/25/21 @ 20:[address] Jessica Rao MD) household members: spouse Smoking Status: Former smoker how long ago did patient quit smoking: Quit 1987, smoked 1.5 ppd since teen. alcohol intake: never substance use type: does not use Lab / Micro Data Result Diagrams: 05/29/21 09:44 05/29/21 09:44 Labs: Laboratory Results - last 24 hr 05/28/21 15:58: POC Glucose 245 H 05/28/21 20:49: POC Glucose 263 H 05/29/21 05:21: POC Glucose 138 H 05/29/21 09:44: Vancomycin Trough 3.6 L 05/29/21 09:44: WBC 7.0, RBC 3.76 L, Hgb 12.4 L, Hct 35.7 L, MCV 94.9 H, MCH 33.0 H, MCHC 34.7, RDW Std Deviation 40.1, RDW Coeff of Imtiaz 11.6, Plt Count 276, MPV 8.8, Immature Gran % (Auto) 0.400, Neut % (Auto) 61.4, Lymph % (Auto) 28.1, [place] % (Auto) 6.1, Eos % (Auto) 3.4, Baso % (Auto) 0.6, Absolute Neuts (auto) 4.3, Absolute Lymphs (auto) 1.97, Nucleated RBC % 0 05/29/21 09:44: Sodium 138, Potassium 3.9, Chloride 110 H, Carbon Dioxide 22.0, Anion Gap 6, BUN 19 H, Creatinine 0.66 L, Estim Creat Clear Calc 129.94, Est GFR (MDRD) Af Amer 160, Est GFR (MDRD) Non-Af 132, BUN/Creatinine Ratio 29.0 H, Glucose 157 H, Calcium 9.2 Micro: Microbiology 05/28/21 19:00 Nasal Secretion SARS-CoV-2 Antigen (Rapid) - Final
[2021-05-29 13:25] LABS: Bedside Glucose 231 mg/dL (74-106)
--- NOTE | 2021-05-29 13:47 | DCINST_ITS ---
Discharge Instructions Diet Discharge Diet: 1999 Calorie Control Diet Activity Discharge Activity: Use Walker Weight Bearing Status: - (left heel weightbearing in surgical shoe) Dressing / Incision Call your doctor if your incision/area has: Continuous Slow Oozing, Sudden Increased Bleeding, Increased Pain/ Swelling, Increased Redness and Foul Smelling Discharge Additional Dressing/Incision Instructions:: Dressing changed today, betadine paint w/ DSD, no compression. Follow Up Care Please Follow Up With: Wound Care Center When: 1 week Test Results: Test results from this visit will be discussed in further detail at your follow-up appointment, if applicable. Discharge Plan Admission Admit Date/Time: 05/25/21 19:27 Primary Reason for Your Visit: left foot cellulitis Attending Provider: Domo Dent Primary Care Provider: Javy Alcaraz Consulting Providers: Pasquale Watters ; Behzad Li Discharge Orders/Prescriptions Prescriptions: New cephalexin 500 mg capsule 500 mg PO TID Qty: 114 RF: 0 metronidazole 500 mg tablet 500 mg PO TID Qty: 30 RF: 0 Continued gabapentin 800 mg tablet 800 mg PO TID RF: 0 trazodone 100 mg tablet 100 mg PO DAILY RF: 0 metformin 1,000 mg tablet 1,000 mg PO BID RF: 0 albuterol sulfate 90 mcg/actuation HFA aerosol inhaler 2 puff INHALATION PRN PRN (Reason: Cough) RF: 0 glipizide 5 mg tablet 5 mg PO BID RF: 0 olmesartan 20 mg tablet 20 mg PO DAILY RF: 0 amlodipine-atorvastatin 10-40 mg tablet 10 - 40 tab PO DAILY RF: 0 Jardiance 25 mg tablet 25 mg PO DAILY RF: 0 Ozempic 1 mg/dose (4 mg/3 mL) pen injector 1 mg SUBCUT FR RF: 0 Discontinued doxycycline hyclate 100 mg tablet 100 mg PO BID RF: 0 Referrals / Follow Up: Perry Maciel MD [STAFF PHYSICIAN] - 06/21/21 9:30 am (APPOINTMENT ON MONDAY JUNE 21, 2021 @ 9:30AM AT THE [place] [facility]ICE. [facility]: [address], [address] [place] [address]) Javy Alcaraz DO [Primary Care Provider] - Disposition Disposition (needs filled in before D/C Order can be placed): Home Health Service
--- NOTE | 2021-05-29 13:57 | PCM.DC.SUM ---
Providers Date of Admission: 05/25/21 Primary Care Physician: Dr. Javy Alcaraz, DO Consultations 05/25/21 20:32 Consult: Podiatry Routine Consulting Provider: Pasquale Watters Reason for Consult: L diabetic foot infection EMERGENT Consult: No Notified: Yes Date Notified: 05/25/21 Time Notified: 19:28 Method of Notification: Text 05/26/21 06:45 Consult: Onc/Wound/surgical garment fitter Routine Comment: Reason for Consult:: left foot 05/27/21 14:48 Consult: Infectious Disease Routine Consulting Provider: Behzad Li Reason for Consult: Left diabetic foot ulcer EMERGENT Consult: No Notified: Yes Date Notified: 05/27/21 Time Notified: 12:00 Method of Notification: Verbal Reason For Visit: L DIABETIC FOOT INFECTION Diagnosis Discharge Diagnosis (1) Uncontrolled type 2 diabetes mellitus: Status: Acute Code(s): E11.65 - Type 2 diabetes mellitus with hyperglycemia (2) Diabetic infection of left foot: Status: Acute Code(s): E11.628 - Type 2 diabetes mellitus with other skin complications; L08.9 - Local infection of the skin and subcutaneous tissue, unspecified Medications at Discharge Home Medications Jardiance 25 mg PO DAILY 05/25/21 Ozempic 1 mg SUBCUT FR 05/25/21 albuterol sulfate 2 puff INHALATION PRN PRN 05/25/21 amlodipine-atorvastatin 10 - 40 tab PO DAILY 05/25/21 gabapentin 800 mg PO TID 05/25/21 glipizide 5 mg PO BID 05/25/21 metformin 1,000 mg PO BID 05/25/21 olmesartan 20 mg PO DAILY 05/25/21 trazodone 100 mg PO DAILY 05/25/21 aspirin 81 mg PO DAILY #30 tab 05/29/21 cephalexin 500 mg PO TID #114 cap 05/29/21 metronidazole 500 mg PO TID #30 tab 05/29/21 Hospital Course Operations None Procedures None Summary of Care Provided Minutes Spent on Discharge: 35 Hospital Course: This is a 60-year-old male presents with an infection of his left foot. Patient had previously received 2 rounds of antibiotics with doxycycline only for the redness to recur after completion of treatment. Patient presented with cellulitis and was started on broad-spectrum antibiotics with Pipracil/tazobactam and vancomycin. MRI was performed that showed mild bone edema of the proximal phalanges of the second and third digits without corresponding decreased T1 bone marrow signal. Either reactive bone edema or early osteomyelitis. Patient had arterial studies performed that showed severe digital PAD of the left lower extremity. Patient was planned to have surgery today but because of his severe PAD, the risk of poor wound healing was too high. Patient overall is improving and recommended for antibiotics which patient be on cephalexin and metronidazole. Patient will follow up with vascular surgery with Dr. Maciel, podiatry and wound care center. Patient may require additional treatment and surgery but not at this point in time but he will need revascularization if he does require surgery on his foot to aid with wound healing. Due to his PAD we will add aspirin to his home-going regimen. Weight / BMI Weight Weight: 79 kg Body Mass Index (BMI) 24.3 ABG / Lab / Microbiology Data Result Diagrams: 05/29/21 09:44 05/29/21 09:44 Laboratory: Laboratory Results - last 24 hr 05/28/21 15:58: POC Glucose 245 H 05/28/21 20:49: POC Glucose 263 H 05/29/21 05:21: POC Glucose 138 H 05/29/21 09:44: Vancomycin Trough 3.6 L 05/29/21 09:44: WBC 7.0, RBC 3.76 L, Hgb 12.4 L, Hct 35.7 L, MCV 94.9 H, MCH 33.0 H, MCHC 34.7, RDW Std Deviation 40.1, RDW Coeff of Imtiaz 11.6, Plt Count 276, MPV 8.8, Immature Gran % (Auto) 0.400, Neut % (Auto) 61.4, Lymph % (Auto) 28.1, [place] % (Auto) 6.1, Eos % (Auto) 3.4, Baso % (Auto) 0.6, Absolute Neuts (auto) 4.3, Absolute Lymphs (auto) 1.97, Nucleated RBC % 0 05/29/21 09:44: Sodium 138, Potassium 3.9, Chloride 110 H, Carbon Dioxide 22.0, Anion Gap 6, BUN 19 H, Creatinine 0.66 L, Estim Creat Clear Calc 129.94, Est GFR (MDRD) Af Amer 160, Est GFR (MDRD) Non-Af 132, BUN/Creatinine Ratio 29.0 H, Glucose 157 H, Calcium 9.2 05/29/21 13:22: POC Glucose 231 H Microbiology: Microbiology 05/28/21 19:00 Nasal Secretion SARS-CoV-2 Antigen (Rapid) - Final 05/25/21 21:10 Wound - Left Foot Gram Stain - Final 05/25/21 21:10 Wound - Left Foot Wound Culture - Final Streptococcus agalactiae (B) 05/25/21 21:10 Wound - Left Foot Anaerobic Culture - Preliminary 05/25/21 18:30 Blood Culture (Wb) - Anticubital Right Blood Culture - Preliminary No growth in 48 hours. 05/25/21 18:25 Blood Culture (Wb) - Anticubital Left Blood Culture - Preliminary No growth in 48 hours. D/C Instructions Discharge Diet: 2000 Calorie Control Diet Weight Bearing Status: - (left heel weightbearing in surgical shoe) Call your doctor if your incision/area has: Continuous Slow Oozing, Sudden Increased Bleeding, Increased Pain/ Swelling, Increased Redness and Foul Smelling Discharge Additional Dressing/Incision Instructions: Dressing changed today, betadine paint w/ DSD, no compression. Please Follow Up With: Wound Care Center When: 1 week Meaningful Use Info Meaningful Use Diagnoses (Choose all that apply): None applicable Discharge Plan Admission Admit Date/Time: 05/25/21 19:27 Primary Reason for Your Visit: left foot cellulitis Attending Provider: Domo Dent Primary Care Provider: Javy Alcraaz Consulting Providers: Pasquale Watters ; Behzad Li Discharge Orders/Prescriptions Prescriptions: New cephalexin 500 mg capsule 500 mg PO TID Qty: 114 RF: 0 metronidazole 500 mg tablet 500 mg PO TID Qty: 30 RF: 0 aspirin 81 mg tablet,chewable 81 mg PO DAILY Qty: 30 RF: 0 Continued gabapentin 800 mg tablet 800 mg PO TID RF: 0 trazodone 100 mg tablet 100 mg PO DAILY RF: 0 metformin 1,000 mg tablet 1,000 mg PO BID RF: 0 albuterol sulfate 90 mcg/actuation HFA aerosol inhaler 2 puff INHALATION PRN PRN (Reason: Cough) RF: 0 glipizide 5 mg tablet 5 mg PO BID RF: 0 olmesartan 20 mg tablet 20 mg PO DAILY RF: 0 amlodipine-atorvastatin 10-40 mg tablet 10 - 40 tab PO DAILY RF: 0 Jardiance 25 mg tablet 25 mg PO DAILY RF: 0 Ozempic 1 mg/dose (4 mg/3 mL) pen injector 1 mg SUBCUT FR RF: 0 Discontinued doxycycline hyclate 100 mg tablet 100 mg PO BID RF: 0 Referrals / Follow Up: Perry Maciel MD [STAFF PHYSICIAN] - 06/21/21 9:30 am (APPOINTMENT ON MONDAY JUNE 21, 2021 @ 9:30AM AT THE [place] OFFICE. [facility]: [address] [facility] [id number]) Javy Alcaraz DO [Primary Care Provider] - Disposition Disposition (needs filled in before D/C Order can be placed): Home Health Service Charges/Coding Visit Charges Inpatient E&M: 69324 Disch Hosp
--- NOTE | 2021-05-29 14:02 | CASEMGMT ---
RN CM updated by Dr. Watters that patient does not want HHC at discharge. RN CM in to discuss discharge needs with patient. Patient denied needs and declined HHC at this time. Patient had no further questions or concerns at this time.
[2021-05-29 14:07] VITALS: BP 143/79; PULSE 71; RESP 18; TEMP 36.7; O2SAT 98
== END 2021-05-29 16:08 | disposition home health service (06) | DRG 638 ==
LOC: ED 18:23 → MS3 19:44
PROVIDERS: Internal Medicine; Podiatrist; Admitting Provider Family Medicine; Emergency Provider Physician Assistant; PCP Student in an Organized Health Care Education/Training Program
DX: E11.628 Type 2 diabetes mellitus with other skin complications (principal); L03.116 Cellulitis of left lower limb; E11.00 Type 2 diabetes mellitus with hyperosmolarity without nonketotic hyperglycemic-hyperosmolar coma (NKHHC); E11.42 Type 2 diabetes mellitus with diabetic polyneuropathy; E11.51 Type 2 diabetes mellitus with diabetic peripheral angiopathy without gangrene; D53.9 Nutritional anemia, unspecified; E11.621 Type 2 diabetes mellitus with foot ulcer; L97.522 Non-pressure chronic ulcer of other part of left foot with fat layer exposed; E11.65 Type 2 diabetes mellitus with hyperglycemia; E78.5 Hyperlipidemia, unspecified; I10 Essential (primary) hypertension; E78.00 Pure hypercholesterolemia, unspecified; Z87.891 Personal history of nicotine dependence; Z79.84 Long term (current) use of oral hypoglycemic drugs
CPT/HCPCS: 0064A; 36415; 73630; 73718; 80048; 80053; 80202; 82607; 82746; 82962; 83036; 83605; 83735; 85025; 85652; 86140; 87040; 87070; 87075; 87077; 87186; 87205; 87426; 87640; 91306; 93005; 93923; 97802; 99251; 99284; J7030; J7040; J7050; A4216; G0463; J0295

== ENCOUNTER 2021-06-13 10:30 | Outpatient (RCR) | payer OTHER, SELFPAY ==
[2021-06-06 10:24] VITALS: BP 99/61; PULSE 78; RESP 18; TEMP 36.3; BMI 23.8
--- NOTE | 2021-06-06 11:20 | HP.PCM_ITS ---
History of Present Illness Date of Service: 06/06/21 Progress of Wound: This 60-year-old male seen for follow-up on the left foot ulceration secondary to poorly controlled diabetes. Patient was admitted to the hospital 1 week prior and treated for cellulitis. MRI did not show any deep abscess or osteomyelitis at that time. 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 Decision was made for conservative treatment with observation of infection as the appear to be resolving. He notes that this has continued to be the case and denies any constitutional symptoms. He denies any pain to the site. He has been ambulating in a surgical shoe with heel weightbearing. [facility] Medical History Arthritis Back pain due to injury Chronic cough Diabetes Diabetes type 2, uncontrolled Former tobacco use High blood pressure High cholesterol Restless legs Home Medications Jardiance 25 mg PO DAILY 05/25/21 [History Last Taken 05/25/21] Ozempic 1 mg SUBCUT FR 05/25/21 [History Last Taken 05/19/21] albuterol sulfate 2 puff INHALATION PRN PRN 05/25/21 [History Last Taken 05/23/21] amlodipine-atorvastatin 10 - 40 tab PO DAILY 05/25/21 [History Last Taken 05/25/21] gabapentin 800 mg PO TID 05/25/21 [History Last Taken 05/25/21] glipizide 5 mg PO BID 05/25/21 [History Last Taken 05/25/21] metformin 1,000 mg PO BID 05/25/21 [History Last Taken 05/25/21] olmesartan 20 mg PO DAILY 05/25/21 [History Last Taken 05/25/21] trazodone 100 mg PO DAILY 05/25/21 [History Last Taken 05/24/21] cephalexin 500 mg PO TID #114 cap 05/29/21 [Rx Last Taken Unknown] metronidazole 500 mg PO TID #30 tab 05/29/21 [Rx Last Taken Unknown] aspirin 325 mg PO DAILY 06/06/21 [History Last Taken Unknown] Allergy/AdvReac Type Severity Reaction Status Date / Time No Known Allergies Allergy Verified 06/06/21 10:44 Family History (Updated 05/25/21 @ 20:[address] Jessica Rao MD) Mother Hypertension CVA (cerebral vascular accident) Diabetes Surgical History H/O spinal fusion S/P hardware removal Social History (Updated 05/25/21 @ 20:[address] Jessica Rao MD) household members: spouse Smoking Status: Former smoker how long ago did patient quit smoking: Quit 1987, smoked 1.5 ppd since teen. alcohol intake: never substance use type: does not use Vital Signs Vital Signs Vital Signs: 06/06/21 10:24 Temperature 97.3 F L Temperature Source Temporal Pulse Rate 78 Respiratory Rate 18 Blood Pressure 99/61 Blood Pressure Mean 73 Blood Pressure Source Monitor Blood Pressure Position Sitting Blood Pressure Location Right Arm Oxygen Delivery Method Room Air Weight Weight: 77.564 kg Body Mass Index (BMI) 23.8 Physical Exam Narrative Patient alert oriented to person place and time. Patient ambulating heel weight bearing in surgical shoe left lower extremity. Vascular: Dorsalis pedis posterior tibial pulses monophasic to left lower extremity. Dorsalis pedis posterior tibial pulses right side palpable 1 out of 4. Delayed capillary fill time left lower extremity. Diminished digital hair growth. Atrophic skin changes noted. Neurologic: Light touch protective sensation absent to bilateral feet. No evide nce of clonus or Babinski sign. Dermatologic full-thickness ulceration noted to the plantar third metatarsal head with significant periwound hyperkeratosis mild periwound erythema edema and warmth. Partial-thickness ulcerations with serous drainage to the second and third interspaces. No other signs of infection or deep probing at this time. This erythema is improved from hospital admission. No evidence of fluctuance or crepitus to the periwound areas. Musculoskeletal: No wound forming deformity noted to bilateral lower extremity. Muscular strength 5 out of 5 to bilateral lower extremity compartments No pain with calf squeeze bilateral lower extremities. Debridement Note Debridement Note Post-Debridement Measurements and Additional Note: Post-Debridement Measurements/Treatment WC - Nurse 1 - General Ulcer Assessment Start: 06/06/21 10:22 Freq: Status: Active Protocol: ROYCE.LOWEXT Activity Type Activity Date Activity User E-Sign Co-Sign Detail Recorded Client Recorded Date Recorded By Document 06/06/21 10:24 [facility] [id number] 06/06/21 10:41 [facility] 06/06/21 10:24 - Today's Visit Information Type of service Initial Visit Arrival Mode Ambulatory Transfer Assistance None Patient Identification Verified (Name & Yes ) Patient Requires Transmission-Based No Precautions Finger Stick Blood Sugar(mg/dl) (if 115 indicated): Blood Sugar Stated by Patient Height and Weight Height 5 ft 11 in Weight 77.564 kg Weight in Pounds 171.0 lbs Weight Measurement Method Stated by Patient Body Mass Index (BMI) 23.8 BMI Classification Normal BSA - Jp 1.97 Vital Signs Temperature (97.8 F-99.1 F) 97.3 F L Temperature Source Temporal Pulse Rate (60-100) 78 Pulse Location Monitor Respiratory Rate (12-18) 18 Respiratory rate source Observation Oxygen Delivery Method Room Air Blood Pressure (90/60-120/80) 99/61 Blood Pressure Mean 73 Source Monitor Position Sitting Blood Pressure Location Right Arm History Since Last Visit- (Skip if this is Patient's initial visit) Left Footwear Surgical Shoe with pressure relief insole Right Footwear Regular Shoe Pain Scale: 0-10 Numeric Is Patient Pain Free? Yes Communication Assessment Preferred language Vincentian Perioperative Tech Required No Able to Read Yes Able to Write Yes Communication Tools None Right Hearing Abillity Normal Left Hearing Abillity Normal Visual Assistive Devices Glasses Teaching Assessment Preferences Verbal,Written, Audio/Visual, Demonstration Barriers to Learning None Readiness To Learn Excellent Willingness to Engage in Self Management High Activies Readiness to Engage in Self Management High Activities Anxiety Level Calm Cooperation Cooperative Perception Coherent Interest in Health Problem Asks Questions Education Importance Acknowledges Need Does Patient Smoke tobacco or other No substances Smoking Status Former smoker Is Patient Diabetic Yes Functional Assessment Recent Decline in Ability to Perform Denies Any Declines Culture/Buddhism/Network Support Specialist Cultural/Buddhism Needs that may affect No Treatment Plan Teaching: Wound Center *Welcome to the Wound Center -Person Taught Patient -Teaching Method Discussion -Response to teaching Verbalize understanding - Nurse 1 - General Ulcer Measurement Start: 06/06/21 10:22 Freq: Status: Active Protocol: Activity Type Activity Date Activity User E-Sign Co-Sign Detail Recorded Client Recorded Date Recorded By Document 06/06/21 10:24 [facility] [id number] 06/06/21 10:41 [facility] 03/22/22 10:24 Wound Center Nurse 1 #2 Left Foot 2,3 rd Web Space -Current Size (cm) - Length 2.9 -Current Size (cm) - Width 1.8 -Current Size (cm) - Depth 0.2 -Total Square Cm 5.22 -Exudate Amt Small -Exudate Type Serosanguineous -Wound Margin Distinct, Outline Attached -Granulation Amt Large (67-100%) -Granulation Quality [place] -Necrosis Amt Small (1-33%) -Necrotic Tissue Type Adherent Slough -Texture (Bernadette-wound Skin Appearance) Assessed,Callus ,Scarring -Moisture (Bernadette-wound Skin Appearance) No Abnormality, Assessed -Color (Bernadette-wound Skin Appearance) No Abnormality, Assessed -Temperature (Bernadette-wound Skin No Abnormality Appearance) (Pt Warm) -Tenderness on Palpation (Bernadette-wound No Skin Appearance) -Ulcer Cleansing Rinsed/ Irrigated with Saline -Foul Odor after Cleansing No -Anesthetic Used 4% Lidocaine Solution,5% Lidocaine Gel #1 Left Foot Plantar -Current Size (cm) - Length 1.4 -Current Size (cm) - Width 1.8 -Current Size (cm) - Depth 0.2 -Total Square Cm 2.52 -Exudate Amt Medium -Exudate Type Serosanguineous -Wound Margin Distinct, Outline Attached -Granulation Amt Large (67-100%) -Granulation Quality Red -Necrosis Amt None Present (0 %) -Texture (Bernadette-wound Skin Appearance) Assessed,Callus -Moisture (Bernadette-wound Skin Appearance) No Abnormality, Assessed -Color (Bernadette-wound Skin Appearance) No Abnormality, Assessed -Temperature (Bernadette-wound Skin No Abnormality Appearance) (Pt Warm) -Ulcer Cleansing Rinsed/ Irrigated with Saline -Foul Odor after Cleansing No -Anesthetic Used 4% Lidocaine Solution,5% Lidocaine Gel Left Calf (cm) 30.8 Left Ankle (cm) 21.7 WC - Nurse 2 - General Ulcer CM Notes Start: 06/06/21 10:22 Freq: Status: Active Protocol: Activity Type Activity Date Activity User E-Sign Co-Sign Detail Recorded Client Recorded Date Recorded By Document 06/06/21 11:00 [facility] [id number] 06/06/21 11:04 OREST[facility] 06/06/21 11:00 Wound Center Nurse 2 #2 Left Foot 2,3 rd Web Space -Time 11:01 -Correct Patient Yes -Correct Side, Site, Position Yes -Correct Procedure Yes -Procedure Performed Yes -Type of Procedure Debridement -Clinical Debridement Subcutaneous -Tissue Removed Subcutaneous -Post Debridement (cm) - Length 3 -Post Debridement (cm) - Width 1.8 -Post Debridement (cm) - Depth 0.2 -Total Square (Post) (cm) 5.4 -Area of Debridement (cm) - Length 3.0 -Area of Debridement (cm) - Width 1.8 -Total Square (Area) (cm) 5.40 -Tunneling No -Undermining/Tunneling No -Circular Undermining No -Wound/Ulcer Outcome Not Healed -Ulcer Cleansing Rinsed/ Irrigated with Saline -Foul Odor after Cleansing No -Bioengineered Tissue No -Bleeding Controlled with Pressure -Treatment Response Procedure Tolerated Well -Offloading Yes -Type of Offloading Surgical Shoe -Debridement - Subq, 1st 20sq cm No #1 Left Foot Plantar -Time 11:02 -Correct Patient Yes -Correct Side, Site, Position Yes -Correct Procedure Yes -Procedure Performed Yes -Type of Procedure Debridement -Clinical Debridement Subcutaneous -Tissue Removed Subcutaneous -Post Debridement (cm) - Length 1.5 -Post Debridement (cm) - Width 1.8 -Post Debridement (cm) - Depth 0.2 -Total Square (Post) (cm) 2.70 -Area of Debridement (cm) - Length 1.5 -Area of Debridement (cm) - Width 1.8 -Total Square (Area) (cm) 2.70 -Tunneling No -Undermining/Tunneling No -Circular Undermining No -Wound/Ulcer Outcome Not Healed -Ulcer Cleansing Rinsed/ Irrigated with Saline -Foul Odor after Cleansing No -Bioengineered Tissue No -Bleeding Controlled with Pressure,Silver Nitrate -Treatment Response Procedure Not Tolerated Well -Offloading Yes -Type of Offloading Surgical Shoe -Debridement - Subq, 1st 20sq cm Yes Pain Scale: 0-10 Numeric Is Patient Pain Free? Yes WC - Nurse 3 - General Ulcer D/C NN Start: 06/06/21 10:22 Freq: Status: Active Protocol: Activity Type Activity Date Activity User E-Sign Co-Sign Detail Recorded Client Recorded Date Recorded By Document 06/06/21 11:18 [facility] [id number] 06/06/21 11:20 [facility] 06/06/21 11:18 Wound Care Nurse 3 #2 Left Foot 2,3 rd Web Space -Ulcer Cleansing Rinsed/ Irrigated with Saline -Foul Odor after Cleansing No -Primary Dressing Applied Promogran Deidra Matter, Other -Other Dressing deidra to ulcer , betadine to surrounding tissue @ web spaces -Primary Dressing Covered/Secured with Secured with Tape,Other -Other Covering drsg per dl organ pipe voicer -Promogran Deidra Matter 1 #1 Left Foot Plantar -Ulcer Cleansing Rinsed/ Irrigated with Saline -Foul Odor after Cleansing No -Primary Dressing Applied Promogran Deidra Matter -Primary Dressing Covered/Secured with Dry Gauze & Roll Gauze, Secured with Tape,Other -Other Covering drsg per dl organ pipe voicer -Promogran Deidra Matter 0 Treatment Response Procedure Tolerated Well Pain Scale: 0-10 Numeric Is Patient Pain Free? Yes WC - Visit Discharge Discharge Condition Stable Ambulatory Status Ambulatory Transportation Private Auto Assessment/Plan Assessment/Plan (1) Diabetic infection of left foot: CODE(S): E11.628 - Type 2 diabetes mellitus with other skin complications; L08.9 - Local infection of the skin and subcutaneous tissue, unspecified (2) Non-pressure chronic ulcer of other part of left foot with fat layer exposed: CODE(S): L97.522 - Non-pressure chronic ulcer of other part of left foot with fat layer exposed PLAN: Patient examined evaluated, all findings cussed with patient in detail. Patient has a resolving cellulitis to left lower extremity. He is being treated by infectious disease with oral antibiotics. 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 Pending vascular evaluation we will consider performing a third metatarsal head resection to allow for wound resolution. Discussed with patient in detail if his infection were to worsen this may become an urgent issue and we would likely have to proceed prior to vascular evaluation. He has an appointment with Dr. Maciel on June 21, 2021. Wound today was excisionally debrided down to including the level of subcutaneous tissue of not all nonviable tissue with a combination of pickups and a #15 blade. Anesthesia not required due to neuropathy, hemostasis obtained with light compression. Patient tolerated procedure well. Pre and post debridement measurements document nursing notes. Patient will continue application of Betadine to the interdigital spaces with application of 4 x 4's as interdigital spacers. He will apply Deidra Ag directly to the wound site with a dry sterile dressing and avoid any compression. Patient will continue heel weightbearing in surgical shoe to offload the site. Patient will follow up in 1 week. We will monitor his status closely as if his infection were to progress we may consider surgical and intervention sooner. (3) Type 2 diabetes mellitus with diabetic polyneuropathy: CODE(S): E11.42 - Type 2 diabetes mellitus with diabetic polyneuropathy QUALIFIERS: Diabetes mellitus senior living insulin use: unspecified parts counterman insulin use status Qualified Code(s): E11.42 - Type 2 diabetes mellitus with diabetic polyneuropathy (4) Peripheral vascular disease, unspecified: CODE(S): I73.9 - Peripheral vascular disease, unspecified
[2021-06-13 10:57] VITALS: BP 128/66; PULSE 83; TEMP 36.3; BMI 23.8
--- NOTE | 2021-06-13 12:47 | PCM.WC.PN ---
History of Present Illness Date of Service: 06/13/21 Progress of Wound: This 60-year-old male seen for follow-up on the left foot ulceration secondary to poorly controlled diabetes. Patient was admitted to the hospital 1 week prior and treated for cellulitis. MRI did not show any deep abscess or osteomyelitis at that time. 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 Decision was made for conservative treatment with observation of infection as the appear to be resolving. He notes that this has continued to be the case and denies any constitutional symptoms. He denies any pain to the site. He has been ambulating in a surgical shoe with heel weightbearing. Objective Data Objective Data Vital Signs: Vital Signs Temp Pulse Resp BP 97.4 F L 83 18 128/66 H 06/13/21 10:57 06/13/21 10:57 06/06/21 10:24 06/13/21 10:57 Oxygen Delivery Method Room Air Weight: 77.564 kg Body Mass Index (BMI) 23.8 Physical Exam Narrative Patient alert oriented to person place and time. Patient ambulating heel weightbearing in surgical shoe left lower extremity. Vascular: Dorsalis pedis posterior tibial pulses monophasic to left lower extremity. Dorsalis pedis posterior tibial pulses right side palpable 1 out of 4. Delayed capillary fill time left lower extremity. Diminished digital hair growth. Atrophic skin changes noted. Neurologic: Light touch protective sensation absent to bilateral feet. No evidence of clonus or Babinski sign. Dermatologic full-thickness ulceration noted to the plantar third metatarsal head with significant periwound hyperkeratosis mild periwound erythema edema and warmth. Partial-thickness ulcerations with serous drainage to the second and third interspaces. No other signs of infection or deep probing at this time. This erythema is improved from hospital admission. No evidence of fluctuance or crepitus to the periwound areas. Musculoskeletal: No wound forming deformity noted to bilateral lower extremity. Muscular strength 5 out of 5 to bilateral lower extremity compartments No pain with calf squeeze bilateral lower extremities. Debridement Note Debridement Note Post-Debridement Measurements and Additional Note: Post-Debridement Measurements/Treatment WC - Nurse 1 - General Ulcer Assessment Start: 06/06/21 10:22 Freq: Status: Active Protocol: WC.LOWEXT Activity Type Activity Date Activity User E-Sign Co-Sign Detail Recorded Client Recorded Date Recorded By Document 06/06/21 10:24 [facility] [id number] 06/06/21 10:41 [facility] Document 06/13/21 10:57 [id number] 06/13/21 11:04 KR 06/06/21 06/13/21 10:24 10:57 - Today's Visit Information Type of service Initial Visit Follow-up Visit (Physician/DEMOGRAPHER ) Arrival Mode Ambulatory Ambulatory Transfer Assistance None Patient Identification Verified (Name & Yes Yes ) Patient Requires Transmission-Based No Precautions Finger Stick Blood Sugar(mg/dl) (if 115 113 indicated): Blood Sugar Stated by Stated by Patient Patient Height and Weight Height 5 ft 11 in Weight 77.564 kg Weight in Pounds 171.0 lbs Weight Measurement Method Stated by Patient Body Mass Index (BMI) 23.8 23.8 BMI Classification Normal Normal BSA - Jp 1.97 Vital Signs Temperature (97.8 F-99.1 F) 97.3 F L 97.4 F L Temperature Source Temporal Temporal Pulse Rate (60-100) 78 83 Pulse Location Monitor Monitor Respiratory Rate (12-18) 18 Respiratory rate source Observation Oxygen Delivery Method Room Air Blood Pressure (90/60-120/80) 99/61 128/66 H Blood Pressure Mean (mm Hg) 73 86 Source Monitor Monitor Position Sitting Sitting Blood Pressure Location Right Arm Left Arm Have you changed medications since your No last visit? Any new allergies or adverse reactions No Had a fall/change in ADL's that may No increase risk of falls Signs or symptoms of abuse and/or No neglect since last visit Have you been in the hospital since your No last visit? Has dressing in place as prescribed Yes Has compression in place as prescribed Yes Has offloadiing in place as prescribed Yes Experienced any changes in pain level or No management History Since Last Visit- (Skip if this is Patient's initial visit) Left Footwear Surgical Shoe Surgical Shoe with pressure with pressure relief insole relief insole Right Footwear Regular Shoe Regular Shoe Pain Scale: 0-10 Numeric Is Patient Pain Free? Yes Yes Communication Assessment Preferred language Tu[place] Dive Master Required No Able to Read Yes Able to Write Yes Communication Tools None Right Hearing Abillity Normal Left Hearing Abillity Normal Visual Assistive Devices Glasses Teaching Assessment Preferences Verbal,Written, Audio/Visual, Demonstration Barriers to Learning None Readiness To Learn Excellent Willingness to Engage in Self Management High Activies Readiness to Engage in Self Management High Activities Anxiety Level Calm Cooperation Cooperative Perception Coherent Interest in Health Problem Asks Questions Education Importance Acknowledges Need Does Patient Smoke tobacco or other No substances Smoking Status Former smoker Is Patient Diabetic Yes Functional Assessment Recent Decline in Ability to Perform Denies Any Declines Culture/Lutheran/Chief Innovation Officer Cultural/Lutheran Needs that may affect No Treatment Plan Teaching: Wound Center *Welcome to the Wound Center -Person Taught Patient -Teaching Method Discussion -Response to teaching Verbalize understanding - Nurse 1 - General Ulcer Measurement Start: 06/06/21 10:22 Freq: Status: Active Protocol: Activity Type Activity Date Activity User E-Sign Co-Sign Detail Recorded Client Recorded Date Recorded By Document 06/06/21 10:24 [facility] [id number] 06/06/21 10:41 [facility] Document 06/13/21 10:57 [id number] 06/13/21 11:04 KR 06/06/21 06/13/21 10:24 10:57 Wound Center Nurse 1 #2 Left Foot 2,3 rd Web Space -Current Size (cm) - Length 2.9 0.1 -Current Size (cm) - Width 1.8 0.1 -Current Size (cm) - Depth 0.2 0.1 -Total Square Cm 5.22 0.01 -Exudate Amt Small -Exudate Type Serosanguineous -Wound Margin Distinct, Distinct, Outline Outline Attached Attached -Granulation Amt Large (67-100%) None Present (0 %) -Granulation Quality Alder -Necrosis Amt Small (1-33%) None Present (0 %) -Necrotic Tissue Type Adherent Slough -Texture (Bernadette-wound Skin Appearance) Assessed,Callus Assessed, ,Scarring Scarring -Moisture (Bernadette-wound Skin Appearance) No Abnormality, Assessed,Dry/ Assessed Scaly -Color (Bernadette-wound Skin Appearance) No Abnormality, No Abnormality, Assessed Assessed -Temperature (Bernadette-wound Skin No Abnormality No Abnormality Appearance) (Pt Warm) (Pt Warm) -Tenderness on Palpation (Bernadette-wound No No Skin Appearance) -Ulcer Cleansing Rinsed/ Rinsed/ Irrigated with Irrigated with Saline Saline -Foul Odor after Cleansing No No -Anesthetic Used 4% Lidocaine 4% Lidocaine Solution,5% Solution Lidocaine Gel #1 Left Foot Plantar -Current Size (cm) - Length 1.4 1 -Current Size (cm) - Width 1.8 1.5 -Current Size (cm) - Depth 0.2 0.2 -Total Square Cm 2.52 1.5 -Exudate Amt Medium Small -Exudate Type Serosanguineous Serosanguineous -Wound Margin Distinct, Distinct, Outline Outline Attached Attached -Granulation Amt Large (67-100%) Medium (34-66%) -Granulation Quality Red Red -Necrosis Amt None Present (0 Small (1-33%) %) -Necrotic Tissue Type Adherent Slough -Texture (Bernadette-wound Skin Appearance) Assessed,Callus Assessed, Scarring -Moisture (Bernadette-wound Skin Appearance) No Abnormality, Assessed Assessed -Color (Bernadette-wound Skin Appearance) No Abnormality, No Abnormality, Assessed Assessed -Temperature (Bernadette-wound Skin No Abnormality No Abnormality Appearance) (Pt Warm) (Pt Warm) -Tenderness on Palpation (Bernadette-wound No Skin Appearance) -Ulcer Cleansing Rinsed/ Rinsed/ Irrigated with Irrigated with Saline Saline -Foul Odor after Cleansing No No -Anesthetic Used 4% Lidocaine 4% Lidocaine Solution,5% Solution Lidocaine Gel Left Calf (cm) 30.8 Left Ankle (cm) 21.7 WC - Nurse 2 - General Ulcer CM Notes Start: 06/06/21 10:22 Freq: Status: Active Protocol: Activity Type Activity Date Activity User E-Sign Co-Sign Detail Recorded Client Recorded Date Recorded By Document 06/06/21 11:00 [id number] 06/06/21 11:04 Document 06/13/21 11:34 [id number] 06/13/21 11:37 06/06/21 06/13/21 11:00 11:34 Wound Center Nurse 2 #2 Left Foot 2,3 rd Web Space -Time 11:01 -Correct Patient Yes No -Correct Side, Site, Position Yes No -Correct Procedure Yes No -Procedure Performed Yes No -Type of Procedure Debridement -Clinical Debridement Subcutaneous -Tissue Removed Subcutaneous -Post Debridement (cm) - Length 3 -Post Debridement (cm) - Width 1.8 -Post Debridement (cm) - Depth 0.2 -Total Square (Post) (cm) 5.4 -Area of Debridement (cm) - Length 3.0 -Area of Debridement (cm) - Width 1.8 -Total Square (Area) (cm) 5.40 -Tunneling No -Undermining/Tunneling No -Circular Undermining No -Wound/Ulcer Outcome Not Healed Not Healed -Ulcer Cleansing Rinsed/ Irrigated with Saline -Foul Odor after Cleansing No -Bioengineered Tissue No -Bleeding Controlled with Pressure -Treatment Response Procedure Tolerated Well -Offloading Yes -Type of Offloading Surgical Shoe -Debridement - Subq, 1st 20sq cm No #1 Left Foot Plantar -Time 11:02 11:35 -Correct Patient Yes Yes -Correct Side, Site, Position Yes Yes -Correct Procedure Yes Yes -Procedure Performed Yes Yes -Type of Procedure Debridement Debridement -Clinical Debridement Subcutaneous Subcutaneous -Tissue Removed Subcutaneous Subcutaneous -Post Debridement (cm) - Length 1.5 1.1 -Post Debridement (cm) - Width 1.8 1.6 -Post Debridement (cm) - Depth 0.2 0.2 -Total Square (Post) (cm) 2.70 1.76 -Area of Debridement (cm) - Length 1.5 1.1 -Area of Debridement (cm) - Width 1.8 1.6 -Total Square (Area) (cm) 2.70 1.76 -Tunneling No No -Undermining/Tunneling No No -Circular Undermining No No -Wound/Ulcer Outcome Not Healed Not Healed -Ulcer Cleansing Rinsed/ Rinsed/ Irrigated with Irrigated with Saline Saline -Foul Odor after Cleansing No No -Bioengineered Tissue No No -Bleeding Controlled with Pressure,Silver Pressure Nitrate -Treatment Response Procedure Not Procedure Tolerated Well Tolerated Well -Offloading Yes Yes -Type of Offloading Surgical Shoe Surgical Shoe -Debridement - Subq, 1st 20sq cm Yes Yes Pain Scale: 0-10 Numeric Is Patient Pain Free? Yes Yes - Nurse 3 - General Ulcer D/C NN Start: 06/06/21 10:22 Freq: Status: Active Protocol: Activity Type Activity Date Activity User E-Sign Co-Sign Detail Recorded Client Recorded Date Recorded By Document 06/06/21 11:18 [facility] [id number] 06/06/21 11:20 [facility] Document 06/13/21 11:48 [id number] 06/13/21 11:49 06/06/21 06/13/21 11:18 11:48 Wound Care Nurse 3 #2 Left Foot 2,3 rd Web Space -Ulcer Cleansing Rinsed/ Rinsed/ Irrigated with Irrigated with Saline Saline -Foul Odor after Cleansing No -Primary Dressing Applied Promogran Deidra Matter, Other -Other Dressing deidra to ulcer betadine , betadine to surrounding tissue @ web spaces -Primary Dressing Covered/Secured with Secured with Dry Gauze,Dry Tape,Other Gauze & Roll Gauze,Secured with Tape -Other Covering drsg per dl evaporator operator -Promogran Deidra Matter 1 #1 Left Foot Plantar -Ulcer Cleansing Rinsed/ Rinsed/ Irrigated with Irrigated with Saline Saline -Foul Odor after Cleansing No -Primary Dressing Applied Promogran Promogran Deidra Matter Deidra Matter -Primary Dressing Covered/Secured with Dry Gauze & Dry Gauze Roll Gauze, Secured with Tape,Other -Other Covering drsg per dl evaporator operator -Promogran Deidra Matter 0 1 Left -Compression Wrap Mian Wrap Treatment Response Procedure Tolerated Well Pain Scale: 0-10 Numeric Is Patient Pain Free? Yes Yes WC - Visit Discharge Discharge Condition Stable Stable Ambulatory Status Ambulatory Ambulatory Transportation Private Auto Private Auto Assessment/Plan Assessment/Plan (1) Diabetic infection of left foot: CODE(S): E11.628 - Type 2 diabetes mellitus with other skin complications; L08.9 - Local infection of the skin and subcutaneous tissue, unspecified (2) Non-pressure chronic ulcer of other part of left foot with fat layer exposed: CODE(S): L97.522 - Non-pressure chronic ulcer of other part of left foot with fat layer exposed PLAN: Patient examined evaluated, all findings cussed with patient in detail. Patient has a resolving cellulitis to left lower extremity. He is being treated by infectious disease with oral antibiotics. 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 Pending vascular evaluation we will consider performing a third metatarsal head resection to allow for wound resolution. Discussed with patient in detail if his infection were to worsen this may become an urgent issue and we would likely have to proceed prior to vascular evaluation. He has an appointment with Dr. Maciel on June 21, 2021. Wound today was excisionally debrided down to including the level of subcutaneous tissue of not all nonviable tissue with a combination of pickups and a #15 blade. Anesthesia not required due to neuropathy, hemostasis obtained with light compression. Patient tolerated procedure well. Pre and post debridement measurements document nursing notes. Patient cellulitis appears to be resolving wound appears to be improving. There is some maceration to the interdigital spaces, we will discontinue application of 4 x 4's to this area and applied Betadine paint to dry the area out and will continue Deidra on the plantar foot. We will consider total contact casting or wound care products advanced to assist healing if need be. Patient will continue heel weightbearing in surgical shoe to offload the site. Patient will follow up in 1 week. We will monitor his status closely as if his infection were to progress we may consider surgical and intervention sooner. (3) Type 2 diabetes mellitus with diabetic polyneuropathy: CODE(S): E11.42 - Type 2 diabetes mellitus with diabetic polyneuropathy QUALIFIERS: Diabetes mellitus terminal makeup operator insulin use: unspecified residential insulin use status Qualified Code(s): E11.42 - Type 2 diabetes mellitus with diabetic polyneuropathy (4) Peripheral vascular disease, unspecified: CODE(S): I73.9 - Peripheral vascular disease, unspecified
== END 2021-06-15 23:59 | disposition home or self-care (01) ==
LOC: WC 10:30
PROVIDERS: PCP Student in an Organized Health Care Education/Training Program; Visit Provider Podiatrist
DX: E11.621 Type 2 diabetes mellitus with foot ulcer (principal); L97.522 Non-pressure chronic ulcer of other part of left foot with fat layer exposed; E11.628 Type 2 diabetes mellitus with other skin complications; E11.42 Type 2 diabetes mellitus with diabetic polyneuropathy; I73.9 Peripheral vascular disease, unspecified; Z87.891 Personal history of nicotine dependence; Z79.84 Long term (current) use of oral hypoglycemic drugs; L08.9 Local infection of the skin and subcutaneous tissue, unspecified; E78.00 Pure hypercholesterolemia, unspecified
CPT/HCPCS: 11042; 99213; G0463

== ENCOUNTER 2021-07-11 10:30 | Outpatient (RCR) | payer OTHER, SELFPAY ==
[2021-06-16 00:51] VITALS: BP 128/66; PULSE 83; RESP 18; TEMP 36.3; BMI 23.8
[2021-06-20 10:41] VITALS: BP 116/74; PULSE 82; RESP 16; TEMP 36.5; BMI 23.8
--- NOTE | 2021-06-20 11:29 | PN.PCM_ITS ---
History of Present Illness Date of Service: 06/20/21 Progress of Wound: This 60-year-old male seen for follow-up on the left foot ulceration secondary to poorly controlled diabetes. Patient receiving Keflex left foot diabetic foot infection. Patient denies constitutional symptoms or pain at this time. Patient has significant peripheral arterial disease and is pending vascular evaluation on 06/21/2021. Patient offloading left foot ulceration with heel weightbearing to surgical shoe on the left side. No other complaints. Objective Data Objective Data Vital Signs: Vital Signs Temp Pulse Resp BP 97.7 F L 82 16 116/74 06/20/21 10:41 06/20/21 10:41 06/20/21 10:41 06/20/21 10:41 Oxygen Delivery Method Room Air Weight: 77.564 kg Body Mass Index (BMI) 23.8 Physical Exam Narrative Patient alert oriented to person place and time. Patient ambulating heel weightbearing in surgical shoe left lower extremity. Vascular: Dorsalis pedis posterior tibial pulses monophasic to left lower extremity. Dorsalis pedis posterior tibial pulses right side palpable 1 out of 4. Delayed capillary fill time left lower extremity. Diminished digital hair growth. Atrophic skin changes noted. Neurologic: Light touch protective sensation absent to bilateral feet. No evidence of clonus or Babinski sign. Dermatologic full-thickness ulceration noted to the plantar third metatarsal head with significant periwound hyperkeratosis mild periwound erythema edema and warmth. Partial-thickness ulcerations with serous drainage to the second and third interspaces. No other signs of infection or deep probing at this time. This erythema is improved from hospital admission. No evidence of fluctuance or crepitus to the periwound areas. Musculoskeletal: No wound forming deformity noted to bilateral lower extremity. Muscular strength 5 out of 5 to bilateral lower extremity compartments No pain with calf squeeze bilateral lower extremities. Debridement Note Debridement Note Post-Debridement Measurements and Additional Note: Post-Debridement Measurements/Treatment - Nurse 1 - General Ulcer Assessment Start: 06/20/21 10:41 Freq: Status: Active Protocol: CINDYEXChalo Activity Type Activity Date Activity User E-Sign Co-Sign Detail Recorded Client Recorded Date Recorded By Document 06/20/21 10:41 [facility] [id number] 06/20/21 10:47 [facility] 06/20/21 10:41 - Today's Visit Information Type of service Follow-up Visit (Physician/DIRECTOR LABOR STANDARDS ) Arrival Mode Ambulatory Transfer Assistance None Patient Identification Verified (Name & Yes ) Patient Requires Transmission-Based No Precautions Height and Weight Body Mass Index (BMI) 23.8 BMI Classification Normal Vital Signs Temperature (97.8 F-99.1 F) 97.7 F L Temperature Source Temporal Pulse Rate (60-100) 82 Pulse Location Monitor Respiratory Rate (12-18) 16 Respiratory rate source Observation Oxygen Delivery Method Room Air Blood Pressure (90/60-120/80) 116/74 Blood Pressure Mean (mm Hg) 88 Source Monitor Position Sitting Blood Pressure Location Right Arm History Since Last Visit- (Skip if this is Patient's initial visit) Have you changed medications since your No last visit? Any new allergies or adverse reactions No Had a fall/change in ADL's that may No increase risk of falls Signs or symptoms of abuse and/or No neglect since last visit Have you been in the hospital since your No last visit? Has dressing in place as prescribed Yes Has compression in place as prescribed Yes Has offloadiing in place as prescribed Yes Experienced any changes in pain level or No management Left Footwear Surgical Shoe with pressure relief insole Right Footwear Regular Shoe Pain Scale: 0-10 Numeric Is Patient Pain Free? Yes - Nurse 1 - General Ulcer Measurement Start: 06/20/21 10:41 Freq: Status: Active Protocol: Activity Type Activity Date Activity User E-Sign Co-Sign Detail Recorded Client Recorded Date Recorded By Document 06/20/21 10:41 [facility] [id number] 06/20/21 10:47 [facility] 06/20/21 10:41 Wound Center Nurse 1 #2 Left Foot 2,3 rd Web Space -Combined with other wound No -Current Size (cm) - Length 1.8 -Current Size (cm) - Width 2.2 -Current Size (cm) - Depth 0.2 -Total Square Cm 3.96 -Photo Taken No -Epithelialization None Present -Tunneling No -Undermining/Tunneling No -Circular Undermining No -Exudate Amt Medium -Exudate Type Serosanguineous -Wound Margin Distinct, Outline Attached -Granulation Amt Small (1-33%) -Granulation Quality [place] -Slough/Fibrin Yes -Necrosis Amt Large (67-100%) -Necrotic Tissue Type Adherent Slough -Texture (Bernadette-wound Skin Appearance) Assessed -Moisture (Bernadette-wound Skin Appearance) Assessed, Maceration -Color (Bernadette-wound Skin Appearance) Assessed,Palor -Temperature (Bernadette-wound Skin No Abnormality Appearance) (Pt Warm) -Tenderness on Palpation (Bernadette-wound No Skin Appearance) -Ulcer Cleansing Rinsed/ Irrigated with Saline -Foul Odor after Cleansing No -Anesthetic Used 4% Lidocaine Solution #1 Left Foot Plantar -Combined with other wound No -Current Size (cm) - Length 0.7 -Current Size (cm) - Width 0.8 -Current Size (cm) - Depth 0.1 -Total Square Cm 0.56 -Photo Taken No -Epithelialization Small 1-33% -Tunneling No -Undermining/Tunneling No -Circular Undermining No -Exudate Amt Medium -Exudate Type Serosanguineous -Wound Margin Distinct, Outline Attached -Granulation Amt Large (67-100%) -Granulation Quality Pale -Slough/Fibrin Yes -Necrosis Amt Small (1-33%) -Necrotic Tissue Type Adherent Slough -Texture (Bernadette-wound Skin Appearance) Assessed,Callus -Moisture (Bernadette-wound Skin Appearance) Assessed,Dry/ Scaly -Color (Bernadette-wound Skin Appearance) Assessed -Temperature (Bernadette-wound Skin No Abnormality Appearance) (Pt Warm) -Tenderness on Palpation (Bernadette-wound No Skin Appearance) -Ulcer Cleansing Rinsed/ Irrigated with Saline -Foul Odor after Cleansing No -Anesthetic Used 4% Lidocaine Solution ROYCE - Nurse 2 - General Ulcer CM Notes Start: 06/20/21 10:41 Freq: Status: Active Protocol: Activity Type Activity Date Activity User E-Sign Co-Sign Detail Recorded Client Recorded Date Recorded By Document 06/20/21 11:15 ORESTES [id number] 06/20/21 11:16 ORESTES 06/20/21 11:15 Wound Center Nurse 2 #2 Left Foot 2,3 rd Web Space -Correct Patient No -Correct Side, Site, Position No -Correct Procedure No -Procedure Performed No -Wound/Ulcer Outcome Not Healed #1 Left Foot Plantar -Correct Patient No -Correct Side, Site, Position No -Correct Procedure No -Procedure Performed No -Wound/Ulcer Outcome Not Healed Pain Scale: 0-10 Numeric Is Patient Pain Free? Yes ROYCE - Nurse 3 - General Ulcer D/C NN Start: 06/20/21 10:41 Freq: Status: Active Protocol: Activity Type Activity Date Activity User E-Sign Co-Sign Detail Recorded Client Recorded Date Recorded By Document 06/20/21 11:25 DL [id number] 06/20/21 11:26 DL 06/20/21 11:25 Wound Care Nurse 3 #2 Left Foot 2,3 rd Web Space -Ulcer Cleansing Soap and Water -Foul Odor after Cleansing No -Other Dressing betadine -Primary Dressing Covered/Secured with Dry Gauze & Roll Gauze, Secured with Tape #1 Left Foot Plantar -Ulcer Cleansing Soap and Water -Foul Odor after Cleansing No -Primary Dressing Applied Promogran Glenna Matter -Primary Dressing Covered/Secured with Dry Gauze & Roll Gauze, Secured with Tape -Promogran Glenna Matter 1 Treatment Response Procedure Tolerated Well Pain Scale: 0-10 Numeric Is Patient Pain Free? 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 Patient has a resolving cellulitis to left lower extremity. He is being treated by infectious disease with oral antibiotics. 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 Pending vascular evaluation we will consider performing a third metatarsal head resection +/- 3rd digit amputation to allow for wound resolution. Discussed with patient in detail if his infection were to worsen this may become an urgent issue and we would likely have to proceed prior to vascular evaluation. He has an appointment with Dr. Maciel on June 21, 2021. No debridement performed today. Patient cellulitis appears to be resolving wound appears to be improving. There is a concerning interdigital space wound which is being dressed with Betadine daily. There is some maceration to the interdigital spaces, we will discontinue application of 4 x 4's to this area and applied Betadine paint to dry the area out and will continue Glenna on the plantar foot. We will consider total contact casting or wound care products advanced to assist healing if need be. Patient will continue heel weightbearing in surgical shoe to offload the site. Patient will follow up in 1 week. We will monitor his status closely as if his infection were to progress we may consider surgical and intervention sooner. Patient has been stable since discharge from the hospital. He has continued erythema to his left third digit. He has continued ulceration to the plantar left third metatarsal head. He is a relatively new ulceration to the third interdigital space. Pending any acute infections or worsening we will await vascular evaluation prior to performing any surgical intervention. Upon evalu ation will consider metatarsal head resection plus/minus digital amputation. (4) Diabetic infection of left foot: CODE(S): E11.628 - Type 2 diabetes mellitus with other skin complications; L08.9 - Local infection of the skin and subcutaneous tissue, unspecified
[2021-07-04 10:34] VITALS: BP 116/77; PULSE 102; TEMP 36.1; BMI 23.8
--- NOTE | 2021-07-04 11:45 | PN.PCM_ITS ---
History of Present Illness Date of Service: 07/04/21 Progress of Wound: This 60-year-old male seen for follow-up on the left foot ulceration secondary to poorly controlled diabetes. Patient receiving Keflex left foot diabetic foot infection. Patient denies constitutional symptoms or pain at this time. Patient has significant peripheral arterial disease and is pending vascular evaluation on 06/21/2021. Patient offloading left foot ulceration with heel weightbearing to surgical shoe on the left side. No other complaints. Objective Data Objective Data Vital Signs: Vital Signs Temp Pulse Resp BP 96.9 F L 102 H 16 116/77 07/04/21 10:34 07/04/21 10:34 06/20/21 10:41 07/04/21 10:34 Oxygen Delivery Method Room Air Weight: 77.564 kg Body Mass Index (BMI) 23.8 Physical Exam Narrative Patient alert oriented to person, place, and time. Patient ambulating heel weightbearing in surgical shoe left lower extremity. Vascular: Dorsalis pedis posterior tibial pulses monophasic to left lower extremity. Dorsalis pedis posterior tibial pulses right side palpable 1 out of 4. Delayed capillary fill time left lower extremity. Diminished digital hair growth. Atrophic skin changes noted. Neurologic: Light touch protective sensation absent to bilateral feet. No evidence of clonus or Babinski sign. Dermatologic full-thickness ulceration noted to the plantar third metatarsal head with significant periwound hyperkeratosis mild periwound erythema edema and warmth. Partial-thickness ulcerations with serous drainage to the second and third interspaces. No other signs of infection or deep probing at this time. This erythema is improved from hospital admission. No evidence of fluctuance or crepitus to the periwound areas. Musculoskeletal: No wound forming deformity noted to bilateral lower extremity. Muscular strength 5 out of 5 to bilateral lower extremity compartments No pain with calf squeeze bilateral lower extremities. Debridement Note Debridement Note Post-Debridement Measurements and Additional Note: Post-Debridement Measurements/Treatment - Nurse 1 - General Ulcer Assessment Start: 06/20/21 10:41 Freq: Status: Active Protocol: ROYCE.LOWEXT Activity Type Activity Date Activity User E-Sign Co-Sign Detail Recorded Client Recorded Date Recorded By Document 06/20/21 10:41 [facility] [id number] 06/20/21 10:47 [facility] Document 07/04/21 10:34 RI [id number] 07/04/21 10:43 EVA 06/20/21 07/04/21 10:41 10:34 - Today's Visit Information Type of service Follow-up Visit Follow-up Visit (Physician/DIGITAL CAMPAIGN SPECIALIST (Physician/DIGITAL CAMPAIGN SPECIALIST ) ) Arrival Mode Ambulatory Ambulatory Transfer Assistance None Patient Identification Verified (Name & Yes Yes ) Patient Requires Transmission-Based No No Precautions Safety Precautions NA Height and Weight Body Mass Index (BMI) 23.8 23.8 BMI Classification Normal Normal Vital Signs Temperature (97.8 F-99.1 F) 97.7 F L 96.9 F L Temperature Source Temporal Temporal Pulse Rate (60-100) 82 102 H Pulse Location Monitor Monitor Respiratory Rate (12-18) 16 Respiratory rate source Observation Oxygen Delivery Method Room Air Blood Pressure (90/60-120/80) 116/74 116/77 Blood Pressure Mean (mm Hg) 88 90 Source Monitor Monitor Position Sitting Blood Pressure Location Right Arm History Since Last Visit- (Skip if this is Patient's initial visit) Have you changed medications since your No No last visit? Any new allergies or adverse reactions No No Had a fall/change in ADL's that may No No increase risk of falls Signs or symptoms of abuse and/or No No neglect since last visit Have you been in the hospital since your No No last visit? Has dressing in place as prescribed Yes Yes Has compression in place as prescribed Yes Yes Has offloadiing in place as prescribed Yes No Experienced any changes in pain level or No No management Left Footwear Surgical Shoe Regular Shoe with pressure relief insole Right Footwear Regular Shoe Regular Shoe Pain Scale: 0-10 Numeric Is Patient Pain Free? Yes Yes - Nurse 1 - General Ulcer Measurement Start: 06/20/21 10:41 Freq: Status: Active Protocol: Activity Type Activity Date Activity User E-Sign Co-Sign Detail Recorded Client Recorded Date Recorded By Document 06/20/21 10:41 [facility] [id number] 06/20/21 10:47 [facility] Document 07/04/21 10:34 RI [id number] 07/04/21 10:43 EVA 06/20/21 07/04/21 10:41 10:34 Wound Center Nurse 1 #2 Left Foot 2,3 rd Web Space -Combined with other wound No No -Current Size (cm) - Length 1.8 0.3 -Current Size (cm) - Width 2.2 0.7 -Current Size (cm) - Depth 0.2 0.1 -Total Square Cm 3.96 0.21 -Photo Taken No No -Epithelialization None Present None Present -Tunneling No No -Undermining/Tunneling No No -Circular Undermining No No -Change in Wound Grade/Stage No -Exudate Amt Medium Medium -Exudate Type Serosanguineous Serosanguineous -Wound Margin Distinct, Distinct, Outline Outline Attached Attached -Granulation Amt Small (1-33%) Small (1-33%) -Granulation Quality [place] -Slough/Fibrin Yes Yes -Necrosis Amt Large (67-100%) Large (67-100%) -Necrotic Tissue Type Adherent Slough Adherent Slough -Structure Exposed N/A -Texture (Bernadette-wound Skin Appearance) Assessed No Abnormality, Assessed -Moisture (Bernadette-wound Skin Appearance) Assessed, Assessed, Maceration Maceration -Color (Bernadette-wound Skin Appearance) Assessed,Palor No Abnormality, Assessed -Temperature (Bernadette-wound Skin No Abnormality No Abnormality Appearance) (Pt Warm) (Pt Warm) -Tenderness on Palpation (Bernadette-wound No No Skin Appearance) -Ulcer Cleansing Rinsed/ Rinsed/ Irrigated with Irrigated with Saline Saline -Foul Odor after Cleansing No No -Anesthetic Used 4% Lidocaine 5% Lidocaine Solution Gel #1 Left Foot Plantar -Combined with other wound No No -Current Size (cm) - Length 0.7 1.5 -Current Size (cm) - Width 0.8 1.5 -Current Size (cm) - Depth 0.1 0.1 -Total Square Cm 0.56 2.25 -Photo Taken No No -Epithelialization Small 1-33% -Tunneling No No -Undermining/Tunneling No No -Circular Undermining No No -Exudate Amt Medium Large -Exudate Type Serosanguineous Serosanguineous -Wound Margin Distinct, Distinct, Outline Outline Attached Attached -Granulation Amt Large (67-100%) Medium (34-66%) -Granulation Quality Pale N/A,[place] -Slough/Fibrin Yes Yes -Necrosis Amt Small (1-33%) Medium (34-66%) -Necrotic Tissue Type Adherent Slough Adherent Slough -Structure Exposed N/A -Texture (Bernadette-wound Skin Appearance) Assessed,Callus Assessed,Callus -Moisture (Bernadette-wound Skin Appearance) Assessed,Dry/ Assessed, Scaly Maceration -Color (Bernadette-wound Skin Appearance) Assessed Assessed -Temperature (Bernadette-wound Skin No Abnormality No Abnormality Appearance) (Pt Warm) (Pt Warm) -Tenderness on Palpation (Bernadette-wound No No Skin Appearance) -Ulcer Cleansing Rinsed/ Rinsed/ Irrigated with Irrigated with Saline Saline -Foul Odor after Cleansing No No -Anesthetic Used 4% Lidocaine 4% Lidocaine Solution Solution Left Calf (cm) 30 Left Ankle (cm) 20 WC - Nurse 2 - General Ulcer CM Notes Start: 06/20/21 10:41 Freq: Status: Active Protocol: Activity Type Activity Date Activity User E-Sign Co-Sign Detail Recorded Client Recorded Date Recorded By Document 06/20/21 11:15 [id number] 06/20/21 11:16 Document 07/04/21 11:02 [id number] 07/04/21 11:07 06/20/21 07/04/21 11:15 11:02 Wound Center Nurse 2 #2 Left Foot 2,3 rd Web Space -Correct Patient No No -Correct Side, Site, Position No No -Correct Procedure No No -Procedure Performed No No -Wound/Ulcer Outcome Not Healed Not Healed #1 Left Foot Plantar -Time 11:04 -Correct Patient No Yes -Correct Side, Site, Position No Yes -Correct Procedure No Yes -Procedure Performed No Yes -Type of Procedure Debridement -Clinical Debridement Subcutaneous -Tissue Removed Subcutaneous -Post Debridement (cm) - Length 0.3 -Post Debridement (cm) - Width 0.6 -Post Debridement (cm) - Depth 0.2 -Total Square (Post) (cm) 0.18 -Area of Debridement (cm) - Length 0.3 -Area of Debridement (cm) - Width 0.6 -Total Square (Area) (cm) 0.18 -Tunneling No -Undermining/Tunneling No -Circular Undermining No -Wound/Ulcer Outcome Not Healed Not Healed -Ulcer Cleansing Rinsed/ Irrigated with Saline -Foul Odor after Cleansing No -Bioengineered Tissue No -Bleeding Controlled with Pressure -Treatment Response Procedure Tolerated Well -Offloading Yes -Type of Offloading Surgical Shoe -Debridement - Subq, 1st 20sq cm Yes Pain Scale: 0-10 Numeric Is Patient Pain Free? Yes Yes WC - Nurse 3 - General Ulcer D/C NN Start: 06/20/21 10:41 Freq: Status: Active Protocol: Activity Type Activity Date Activity User E-Sign Co-Sign Detail Recorded Client Recorded Date Recorded By Document 06/20/21 11:25 DL [id number] 06/20/21 11:26 DL Document 07/04/21 11:08 AK [id number] 07/04/21 11:09 AK 06/20/21 07/04/21 11:25 11:08 Wound Care Nurse 3 #2 Left Foot 2,3 rd Web Space -Ulcer Cleansing Soap and Water Rinsed/ Irrigated with Saline -Foul Odor after Cleansing No No -Negative Pressure Wound Therapy N/A -Other Dressing betadine betadine -Primary Dressing Covered/Secured with Dry Gauze & Roll Gauze, Secured with Tape #1 Left Foot Plantar -Ulcer Cleansing Soap and Water Rinsed/ Irrigated with Saline -Foul Odor after Cleansing No No -Negative Pressure Wound Therapy N/A -Primary Dressing Applied Promogran C Hydrogel ($) Glenna Matter -Primary Dressing Covered/Secured with Dry Gauze & Dry Gauze & Roll Gauze, Roll Gauze, Secured with Secured with Tape Tape -Promogran Glenna Matter 1 Treatment Response Procedure Tolerated Well Pain Scale: 0-10 Numeric Is Patient Pain Free? 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 Patient has a resolved cellulitis to left lower extremity. He is being treated by infectious disease with oral antibiotics. Patient is scheduled to go for an angiogram on Saturday of this week at which time revascularization will be attempted. Left plantar foot wound was excisionally debrided down to including level of subcutaneous tissue atraumatically using 15 blade all nonviable tissue removed. No anesthesia required due to neuropathy. Hemostasis obtained with light compression. Patient tolerated procedure well. Pre and postdebridement measurement document nursing notes. Patient cellulitis appears to be resolved. There is a concerning interdigital space wound which is being dressed with Betadine daily. There is some maceration to the interdigital spaces, we will discontinue application of 4 x 4's to this area and applied Betadine paint to dry the area out and will start hydrogel on the plantar foot. We will consider total contact casting or wound care products advanced to assist healing if need be versus surgical management pending revascularization resolved. Patient will continue heel weightbearing in surgical shoe to offload the site. Patient will follow up in 1 week. We will monitor his status closely as if his infection were to progress we may consider surgical and intervention sooner. (4) Diabetic infection of left foot: CODE(S): E11.628 - Type 2 diabetes mellitus with other skin complications; L08.9 - Local infection of the skin and subcutaneous tissue, unspecified
[2021-07-11 10:44] VITALS: BP 108/71; PULSE 80; TEMP 35.5; BMI 23.8
--- NOTE | 2021-07-11 11:22 | PCM.WC.PN ---
History of Present Illness Date of Service: 07/11/21 Progress of Wound: This 60-year-old male seen for follow-up on the left foot ulceration secondary to poorly controlled diabetes. Patient receiving Keflex left foot diabetic foot infection. Patient denies constitutional symptoms or pain at this time. Patient has significant peripheral arterial disease and recently underwent angioplasty to left lower extremity. He notes significant improvement of his wounds at this time. Patient offloading left foot ulceration with heel weightbearing to surgical shoe on the left side. No other complaints. Objective Data Objective Data Vital Signs: Vital Signs Temp Pulse Resp BP 95.9 F L 80 16 108/71 07/11/21 10:44 07/11/21 10:44 06/20/21 10:41 07/11/21 10:44 Oxygen Delivery Method Room Air Weight: 77.564 kg Body Mass Index (BMI) 23.8 Physical Exam Narrative Patient alert oriented to person, place, and time. Patient ambulating heel weightbearing in surgical shoe left lower extremity. Vascular: Dorsalis pedis posterior tibial pulses monophasic to left lower extremity. Dorsalis pedis posterior tibial pulses right side palpable 1 out of 4. Delayed capillary fill time left lower extremity. Diminished digital hair growth. Atrophic skin changes noted. Neurologic: Light touch protective sensation absent to bilateral feet. No evidence of clonus or Babinski sign. Dermatologic full-thickness ulceration noted to the plantar third metatarsal head with significant periwound hyperkeratosis mild periwound erythema edema and warmth. Full thickness ulcerations with serous drainage to the third interspace, this wound extends down to bone postdebridement. No other signs of infection or deep probing at this time. This erythema is improved from hospital admission. No evidence of fluctuance or crepitus to the periwound areas. Musculoskeletal: No wound forming deformity noted to bilateral lower extremity. Muscular strength 5 out of 5 to bilateral lower extremity compartments No pain with calf squeeze bilateral lower extremities. Debridement Note Debridement Note Post-Debridement Measurements and Additional Note: Post-Debridement Measurements/Treatment ROYCE - Nurse 1 - General Ulcer Assessment Start: 06/20/21 10:41 Freq: Status: Active Protocol: ROYCE.LOWEXT Activity Type Activity Date Activity User E-Sign Co-Sign Detail Recorded Client Recorded Date Recorded By Document 06/20/21 10:41 [facility] [id number] 06/20/21 10:47 BMF Document 07/04/21 10:34 NM [id number] 07/04/21 10:43 AK Document 07/11/21 10:44 NM [id number] 07/11/21 10:49 AK 06/20/21 07/04/21 07/11/21 10:41 10:34 10:44 WC - Today's Visit Information Type of service Follow-up Visit Follow-up Visit Follow-up Visit (Physician/TECHNICAL ASSISTANCE CONSULTANT (Physician/TECHNICAL ASSISTANCE CONSULTANT (Physician/TECHNICAL ASSISTANCE CONSULTANT ) ) ) Arrival Mode Ambulatory Ambulatory Ambulatory Transfer Assistance None Patient Identification Verified (Name & Yes Yes Yes ) Patient Requires Transmission-Based No No No Precautions Safety Precautions NA NA Height and Weight Body Mass Index (BMI) 23.8 23.8 23.8 BMI Classification Normal Normal Normal Vital Signs Temperature (97.8 F-99.1 F) 97.7 F L 96.9 F L 95.9 F L Temperature Source Temporal Temporal Temporal Pulse Rate (60-100) 82 102 H 80 Pulse Location Monitor Monitor Monitor Respiratory Rate (12-18) 16 Respiratory rate source Observation Oxygen Delivery Method Room Air Blood Pressure (90/60-120/80) 116/74 116/77 108/71 Blood Pressure Mean (mm Hg) 88 90 83 Source Monitor Monitor Monitor Position Sitting Blood Pressure Location Right Arm History Since Last Visit- (Skip if this is Patient's initial visit) Have you changed medications since your No No Yes last visit? Any new allergies or adverse reactions No No No Had a fall/change in ADL's that may No No No increase risk of falls Signs or symptoms of abuse and/or No No No neglect since last visit Have you been in the hospital since your No No No last visit? Has dressing in place as prescribed Yes Yes Yes Has compression in place as prescribed Yes Yes Yes Has offloadiing in place as prescribed Yes No N/A Experienced any changes in pain level or No No No management Left Footwear Surgical Shoe Regular Shoe Surgical Shoe with pressure with pressure relief insole relief insole Right Footwear Regular Shoe Regular Shoe Regular Shoe Pain Scale: 0-10 Numeric Is Patient Pain Free? Yes Yes Yes - Nurse 1 - General Ulcer Measurement Start: 06/20/21 10:41 Freq: Status: Active Protocol: Activity Type Activity Date Activity User E-Sign Co-Sign Detail Recorded Client Recorded Date Recorded By Document 06/20/21 10:41 [facility] [id number] 06/20/21 10:47 [facility] Document 07/04/21 10:34 NM [id number] 07/04/21 10:43 AK Document 07/11/21 10:44 AK [id number] 07/11/21 10:49 AK 06/20/21 07/04/21 07/11/21 10:41 10:34 10:44 Wound Center Nurse 1 #2 Left Foot 2,3 rd Web Space -Combined with other wound No No No -Current Size (cm) - Length 1.8 0.3 2 -Current Size (cm) - Width 2.2 0.7 2.5 -Current Size (cm) - Depth 0.2 0.1 0.1 -Total Square Cm 3.96 0.21 5.0 -Date of Last Picture (Recall this 07/11/21 field) -Photo Taken No No Yes -Epithelialization None Present None Present None Present -Tunneling No No No -Undermining/Tunneling No No No -Circular Undermining No No No -Change in Wound Grade/Stage No -Exudate Amt Medium Medium Medium -Exudate Type Serosanguineous Serosanguineous Serosanguineous -Wound Margin Distinct, Distinct, Distinct, Outline Outline Outline Attached Attached Attached -Granulation Amt Small (1-33%) Small (1-33%) None Present (0 %) -Granulation Quality Borden Borden N/A -Slough/Fibrin Yes Yes Yes -Necrosis Amt Large (67-100%) Large (67-100%) Large (67-100%) -Necrotic Tissue Type Adherent Slough Adherent Slough Adherent Slough -Structure Exposed N/A N/A -Texture (Bernadette-wound Skin Appearance) Assessed No Abnormality, No Abnormality, Assessed Assessed -Moisture (Bernadette-wound Skin Appearance) Assessed, Assessed, Assessed, Maceration Maceration Weeping -Color (Bernadette-wound Skin Appearance) Assessed,Palor No Abnormality, No Abnormality, Assessed Assessed -Temperature (Bernadette-wound Skin No Abnormality No Abnormality No Abnormality Appearance) (Pt Warm) (Pt Warm) (Pt Warm) -Tenderness on Palpation (Bernadette-wound No No No Skin Appearance) -Ulcer Cleansing Rinsed/ Rinsed/ Rinsed/ Irrigated with Irrigated with Irrigated with Saline Saline Saline -Foul Odor after Cleansing No No No -Anesthetic Used 4% Lidocaine 5% Lidocaine 4% Lidocaine Solution Gel Solution #1 Left Foot Plantar -Combined with other wound No No No -Current Size (cm) - Length 0.7 1.5 0.1 -Current Size (cm) - Width 0.8 1.5 0.1 -Current Size (cm) - Depth 0.1 0.1 0.1 -Total Square Cm 0.56 2.25 0.01 -Date of Last Picture (Recall this 07/11/21 field) -Photo Taken No No Yes -Epithelialization Small 1-33% -Tunneling No No No -Undermining/Tunneling No No No -Circular Undermining No No No -Change in Wound Grade/Stage No -Exudate Amt Medium Large None Present -Exudate Type Serosanguineous Serosanguineous -Wound Margin Distinct, Distinct, Distinct, Outline Outline Outline Attached Attached Attached -Granulation Amt Large (67-100%) Medium (34-66%) None Present (0 %) -Granulation Quality Pale N/A,Borden N/A -Slough/Fibrin Yes Yes No -Necrosis Amt Small (1-33%) Medium (34-66%) None Present (0 %) -Necrotic Tissue Type Adherent Slough Adherent Slough -Structure Exposed N/A N/A -Texture (Bernadette-wound Skin Appearance) Assessed,Callus Assessed,Callus Assessed,Not Assessed -Moisture (Bernadette-wound Skin Appearance) Assessed,Dry/ Assessed, No Abnormality, Scaly Maceration Assessed -Color (Bernadette-wound Skin Appearance) Assessed Assessed No Abnormality, Assessed -Temperature (Bernadette-wound Skin No Abnormality No Abnormality No Abnormality Appearance) (Pt Warm) (Pt Warm) (Pt Warm) -Tenderness on Palpation (Bernadette-wound No No No Skin Appearance) -Ulcer Cleansing Rinsed/ Rinsed/ Rinsed/ Irrigated with Irrigated with Irrigated with Saline Saline Saline -Foul Odor after Cleansing No No -Anesthetic Used 4% Lidocaine 4% Lidocaine 4% Lidocaine Solution Solution Solution Left Calf (cm) 30 Left Ankle (cm) 20 WC - Nurse 2 - General Ulcer CM Notes Start: 06/20/21 10:41 Freq: Status: Active Protocol: Activity Type Activity Date Activity User E-Sign Co-Sign Detail Recorded Client Recorded Date Recorded By Document 06/20/21 11:15 [id number] 06/20/21 11:16 Document 07/04/21 11:02 [id number] 07/04/21 11:07 Document 07/11/21 11:16 [id number] 07/11/21 11:18 06/20/21 07/04/21 07/11/21 11:15 11:02 11:16 Wound Center Nurse 2 #2 Left Foot 2,3 rd Web Space -Time 11:16 -Correct Patient No No Yes -Correct Side, Site, Position No No Yes -Correct Procedure No No Yes -Procedure Performed No No Yes -Type of Procedure Debridement -Clinical Debridement Bone -Tissue Removed Non-viable tissue -Post Debridement (cm) - Length 2.5 -Post Debridement (cm) - Width 1.5 -Post Debridement (cm) - Depth 0.4 -Total Square (Post) (cm) 3.75 -Area of Debridement (cm) - Length 2.5 -Area of Debridement (cm) - Width 1.5 -Total Square (Area) (cm) 3.75 -Tunneling No -Undermining/Tunneling No -Circular Undermining No -Wound/Ulcer Outcome Not Healed Not Healed Not Healed -Ulcer Cleansing Rinsed/ Irrigated with Saline -Foul Odor after Cleansing No -Bioengineered Tissue No -Bleeding Controlled with Pressure -Treatment Response Procedure Tolerated Well -Offloading Yes -Type of Offloading Surgical Shoe -Debridement - Subq, 1st 20sq cm No -Debridement - Bone, 1st 20sq cm Yes #1 Left Foot Plantar -Time 11:04 -Correct Patient No Yes No -Correct Side, Site, Position No Yes No -Correct Procedure No Yes No -Procedure Performed No Yes No -Type of Procedure Debridement -Clinical Debridement Subcutaneous -Tissue Removed Subcutaneous -Post Debridement (cm) - Length 0.3 0 -Post Debridement (cm) - Width 0.6 0 -Post Debridement (cm) - Depth 0.2 0 -Total Square (Post) (cm) 0.18 0 -Area of Debridement (cm) - Length 0.3 0 -Area of Debridement (cm) - Width 0.6 0 -Total Square (Area) (cm) 0.18 0 -Tunneling No -Undermining/Tunneling No -Circular Undermining No -Wound/Ulcer Outcome Not Healed Not Healed Healed- Epithelialized -Ulcer Cleansing Rinsed/ Irrigated with Saline -Foul Odor after Cleansing No -Bioengineered Tissue No -Bleeding Controlled with Pressure -Treatment Response Procedure Tolerated Well -Offloading Yes -Type of Offloading Surgical Shoe -Debridement - Subq, 1st 20sq cm Yes Pain Scale: 0-10 Numeric Is Patient Pain Free? Yes Yes Yes - Nurse 3 - General Ulcer D/C NN Start: 06/20/21 10:41 Freq: Status: Active Protocol: Activity Type Activity Date Activity User E-Sign Co-Sign Detail Recorded Client Recorded Date Recorded By Document 06/20/21 11:25 DL [id number] 06/20/21 11:26 DL Document 07/04/21 11:08 AK [id number] 07/04/21 11:09 AK 06/20/21 07/04/21 11:25 11:08 Wound Care Nurse 3 #2 Left Foot 2,3 rd Web Space -Ulcer Cleansing Soap and Water Rinsed/ Irrigated with Saline -Foul Odor after Cleansing No No -Negative Pressure Wound Therapy N/A -Other Dressing betadine betadine -Primary Dressing Covered/Secured with Dry Gauze & Roll Gauze, Secured with Tape #1 Left Foot Plantar -Ulcer Cleansing Soap and Water Rinsed/ Irrigated with Saline -Foul Odor after Cleansing No No -Negative Pressure Wound Therapy N/A -Primary Dressing Applied Promogran C Hydrogel ($) Glenna Matter -Primary Dressing Covered/Secured with Dry Gauze & Dry Gauze & Roll Gauze, Roll Gauze, Secured with Secured with Tape Tape -Promogran Glenna Matter 1 Treatment Response Procedure Tolerated Well Pain Scale: 0-10 Numeric Is Patient Pain Free? 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 Patient has a resolved cellulitis to left lower extremity. Patient underwent balloon angioplasty last week to left lower extremity, two-vessel runoff noted to left lower extremity Left plantar foot wound was excisionally debrided down to including level of bone (proximal phalanx, left third digit) atraumatically using 15 blade all nonviable tissue removed. No anesthesia required due to neuropathy. Hemostasis obtained with light compression. Patient tolerated procedure well. Pre and postdebridement measurement document nursing notes. Patient cellulitis appears to be resolved. There is a concerning interdigital space wound which is being dressed with Glenna and Betadine to periwound area daily. Plantar foot with wound healed at this time Patient will continue heel weightbearing in surgical shoe to offload the site. Patient will follow up in 1 week, if no improvement in the wound at that time we will consider elective amputation of the left third digit to accelerate healing and allow the patient return to function since he was recently revascularized and we should act within a month to 2 months time period. (4) Diabetic infection of left foot: CODE(S): E11.628 - Type 2 diabetes mellitus with other skin complications; L08.9 - Local infection of the skin and subcutaneous tissue, unspecified
== END 2021-07-15 23:59 | disposition home or self-care (01) ==
LOC: WC 10:30
PROVIDERS: PCP Student in an Organized Health Care Education/Training Program; Visit Provider Podiatrist
DX: L97.522 Non-pressure chronic ulcer of other part of left foot with fat layer exposed (principal); E11.42 Type 2 diabetes mellitus with diabetic polyneuropathy; E11.628 Type 2 diabetes mellitus with other skin complications; I73.9 Peripheral vascular disease, unspecified; L08.9 Local infection of the skin and subcutaneous tissue, unspecified
CPT/HCPCS: 11042; 11044; 99213; G0463

== ENCOUNTER → 2021-07-14 | Outpatient (CLI) | payer OTHER, SELFPAY ==
--- NOTE | 2021-07-15 05:44 | PFTCOMP_ITS ---
COMPLETE PULMONARY FUNCTION TEST INTERPRETATION Brief HPI: Patient is a 60 year old male, currently under the care of Dr. Alcaraz, who presents to [facility] for complete pulmonary function tests secondary to diagnosis of dyspnea. Respiratory therapist reports good effort and reproducible results. Interpretation: Forced expiration spirometry shows a mild large airways obstructive ventilatory defect with an FEV1 of 87% predicted. There is no significant bronchodilator response by strict ATS criteria. Spirograms are of good quality and plateau slowly, indicating slowly emptying areas of the lungs. The respiratory flow volume loop shows decreased expiratory flow rates at high lung volumes consistent with small airways obstruction. Lung volumes by body plethysmography show a normal total lung capacity at 7.66 L, 109% predicted. All other lung volumes are within normal limits. Diffusion capacity by carbon monoxide is normal at 73% predicted. The airway resistance is elevated. No previous pulmonary function tests were available for review. Impression: Irreversible mild large airways obstructive ventilatory defect with a symmetric reduction diffusing capacity.
== END | disposition home or self-care (01) ==
PROVIDERS: PCP Student in an Organized Health Care Education/Training Program; Referring Provider Student in an Organized Health Care Education/Training Program; Visit Provider Student in an Organized Health Care Education/Training Program
DX: R06.00 Dyspnea, unspecified (principal); E11.621 Type 2 diabetes mellitus with foot ulcer; E11.9 Type 2 diabetes mellitus without complications
CPT/HCPCS: 94060; 94726; 94729

== ENCOUNTER → 2021-07-20 | Outpatient (CLI) | payer OTHER, SELFPAY ==
[2021-07-20 10:22] LABS: Hematocrit 39.1 % (40-54); Hemoglobin 12.7 g/dL (13.0-16.5); Mean Corp Hgb Conc 32.5 g/dL (32-36); Mean Corpuscular Hgb 31.1 pg (27.0-32.0); Mean Corpuscular Volume 95.6 fL (80-94); Mean Platelet Vol. 8.9 fl (6.2-12.0); Platelet Count 315 K/mm3 (150-450); RBC Distribution Width CV 12.3 % (11.6-14.6); RBC Distribution Width SD 43.3 fl (35.1-43.9); Red Blood Count 4.09 M/mm3 (4.6-6.2)
[2021-07-20 10:50] LABS: ALB/GLOB Ratio 0.6 RATIO (0.9-2.4); AST(SGOT) 14 U/L (15-37); Alanine Aminotransfer ALT/SGPT 19 U/L (16-61); Albumin, Serum 2.9 g/dL (3.2-5.0); Alkaline Phosphatase 75 U/L (45-117); Anion Gap 5 (5-15); BUN 20 mg/dL (7-18); BUN/Creat Ratio 26.1 RATIO (10-20); Calcium,Total 9.4 mg/dL (8.5-10.1); Chloride 108 mmol/L (98-107); Cholesterol 104 mg/dL (200); Creatinine, Serum 0.76 mg/dL (0.70-1.30); EST Glomerular Filtration Rate 111 mL/min (>60); Est Glom Filt Rate - Afr Amer 134 mL/min (>60); Globulin 4.6 g/dL (2.2-4.2); Glucose 146 mg/dL (74-106); High Density Lipoprotein 25 mg/dL; Protein, Total 7.5 g/dL (6.4-8.2); Sodium Level 139 mmol/L (136-145); Triglycerides 129 mg/dL; Very Low Density Lipoprotein 26 mg/dL (5-40)
[2021-07-20 11:21] LABS: Hepatitis C Antibody Non-Reactive (Nonreactive)
--- NOTE | 2021-07-20 11:46 | ECHOD_ITS ---
Reason For Study: PATEL, Pre-op Procedure This was a 2D Doppler, Color Flow transthoracic echocardiogram. Exam performed in department. Left Ventricle Mildly dilated left ventricle. The estimated ejection fraction is 30-35 %. Stage 1 diastolic dysfunction. Moderate to severe hypokinesis of the anterior wall, septum and apex. Mild hypokinesis of the inferior wall and lateral wall. Right Ventricle Normal RV size. Normal systolic function. Atria Normal left atrium. Normal right atrium. No doppler evidence for ASD. Mitral Valve There is no mitral valve stenosis. No mitral valve insufficiency. Tricuspid Valve There is no tricuspid stenosis. Trivial tricuspid valve insufficiency. Unable to estimate RV systolic pressure due to insufficient tricuspid regurgitant envelope. Aortic Valve Trisinus/trileaflet aortic valve. Aortic sclerosis, no stenosis. There is no aortic stenosis. No aortic valve insufficiency. Pulmonic Valve There is no pulmonic valvular stenosis. No pulmonic valve insufficiency. Great Vessels Normal aortic root. Pericardium/Pleural No pericardial effusion. MMode/2D Measurements & Calculations LVIDd: 5.0 cm IVSd: 0.97 cm Ao root diam: 3.7 cm LVIDs: 3.7 cm LVPWd: 1.1 cm RVDd: 3.4 cm FS: 27.6 % LAV(MOD-bp): 37.6 ml LVAd ap4: 35.7 cm2 LVAd ap2: 33.6 cm2 LAV(MOD-bp) Indexed: 18.9 ml/m2 LVLd ap4: 9.1 cm LVLd ap2: 8.9 cm LAV(MOD-sp2): 38.4 ml EDV(MOD-sp4): 117.0 ml EDV(MOD-sp2): 107.8 ml LAV(MOD-sp4): 37.0 ml EDV(sp4-el): 118.9 ml EDV(sp2-el): 107.6 ml LVAs ap4: 26.6 cm2 LVAs ap2: 26.4 cm2 LVLs ap4: 8.8 cm LVLs ap2: 8.4 cm ESV(MOD-sp4): 68.5 ml ESV(MOD-sp2): 72.7 ml ESV(sp4-el): 68.6 ml ESV(sp2-el): 70.0 ml EF(MOD-sp4): 41.4 % EF(MOD-sp2): 32.5 % EF(sp4-el): 42.3 % SV(MOD-sp4): 48.5 ml SV(MOD-sp2): 35.1 ml SV(sp4-el): 50.3 ml LA dimension(2D): 3.7 cm LA A4 area: 14.4 cm2 RA A4 area: 13.7 cm2 Doppler Measurements & Calculations MV E max jony: 49.9 cm/sec Lat Peak E' Jony: 12.9 cm/sec Med Peak E' Jony: 5.4 cm/sec MV A max jony: 74.4 cm/sec E/E' lat: 3.9 E/E' med: 9.2 MV E/A: 0.67 Ao V2 max: 138.4 cm/sec LV V1 max: 110.4 cm/sec PA V2 max: 89.4 cm/sec Ao max P.7 mmHg LV V1 max P.9 mmHg TR max jony: 237.6 cm/sec TR max P.6 mmHg ECHO/Echo Complete Interpretation Summary The estimated ejection fraction is 30-35 %. Stage 1 diastolic dysfunction. Moderate to severe hypokinesis of the anterior wall, septum and apex. Mild hypo kinesis of the inferior wall and lateral wall. Ordering Physician: Javy Alcaraz Referring Physician: Javy Alcaraz Performed By: Michelle Reagan RDCS
== END | disposition home or self-care (01) ==
LOC: CVS 10:44
PROVIDERS: PCP Student in an Organized Health Care Education/Training Program; Referring Provider Student in an Organized Health Care Education/Training Program; Visit Provider Student in an Organized Health Care Education/Training Program
DX: R06.00 Dyspnea, unspecified (principal); E11.621 Type 2 diabetes mellitus with foot ulcer; E11.65 Type 2 diabetes mellitus with hyperglycemia; R93.89 Abnormal findings on diagnostic imaging of other specified body structures; Z11.59 Encounter for screening for other viral diseases; Z12.5 Encounter for screening for malignant neoplasm of prostate
CPT/HCPCS: 36415; 80053; 80061; 82043; 84153; 85027; 86803; 93306; J7030; A4216; G0103

== ENCOUNTER → 2021-07-26 | Outpatient (CLI) | payer OTHER, SELFPAY ==
--- NOTE | 2021-07-26 14:33 | RAD_ITS ---
INDICATION: cad EXAMINATION/TECHNIQUE: X-RAY - XR Chest 2 Views COMPARISON: None. FINDINGS: LINES/DEVICES: None. LUNGS: Diffuse coarsening of interstitial markings without consolidation or pleural effusion. MEDIASTINUM AND CARDIOVASCULAR STRUCTURES: Cardiac silhouette not enlarged. Central airways and mediastinal contour are unremarkable. BONES AND SOFT TISSUES: Unremarkable. RAD/Chest PA and Lateral IMPRESSION: Coarsening of interstitial markings, likely chronic lung disease. Recommend short-term follow-up for stability. No acute consolidative process. Electronically Signed: Jack Ritter MD at 15:15 EDT ,
== END | disposition home or self-care (01) ==
LOC: RAD 14:33
PROVIDERS: PCP Student in an Organized Health Care Education/Training Program; Referring Provider Internal Medicine Cardiovascular Disease; Visit Provider Internal Medicine Cardiovascular Disease
DX: I42.9 Cardiomyopathy, unspecified (principal)
CPT/HCPCS: 71046

== ENCOUNTER 2021-07-31 06:55 | Day surgery (SDC) | payer OTHER, SELFPAY ==
[2021-07-31 07:05] VITALS: BMI 24.1
--- NOTE | 2021-07-31 08:44 | CL.D_ITS ---
Patient Name: NAYELI JOSE Study Date: 07/31/2021 Performing: Preston Montero MD Ht: 70.86 inches 180 cm : 1960 Wt: 171.96 lbs 78 kg Age: 60 Gender: male BSA: 1.98 PROCEDURE(S) PERFORMED DC01-([id number])LHC/COR/LV CLINICAL PROFILE AND INDICATIONS Indications: Suspected CAD Heart Failure: None Stress/Imaging Stress/Image Study Performed: No CAD Presentations: Symptom unlikely to be ischemic. CONCLUSIONS Triple-vessel disease with calcified vessels, complex anatomy and reduced left ventricular systolic f unction with proximal and mid LAD disease, first obtuse marginal branch stenosis and mid right arreaga ry artery disease. RECOMMENDATIONS Surgery consult for coronary revascularization DESCRIPTION OF PROCEDURE The patient arrived to the procedure lab. The risks and benefits of the procedure as well as a full d escription of our services here and current unavailability of surgical backup were fully explained to the patient and/or their significant other prior to the catheterization. The Timeout was completed, verifying the correct patient and procedure. The patient's procedural site was prepped and draped in the usual fashion. Local anesthetic was given subcutaneously to right radial region with Lidocaine 2% . Using a modified Seldinger technique, arterial access was obtained via the right radial artery, a 6 Fr sheath was inserted. Left Coronary Artery selective angiography was performed in multiple views u sing a 5 Fr. 4.0 Alva catheter. Right Coronary Artery selective angiography was then performed in mu ltiple views using a 5 Fr. 4.0 Alva catheter. Left Ventriculography was performed in GARCIA projection using a 5 Fr. Pigtail catheter. LV to AO pullback pressures were then recorded.The arterial sheath was pulled and a TR Band was applied for hemostasis. 10cc air inserted. CORONARY ANGIOGRAPHY DOMINANCE: Right Dominant LEFT HEART ASSESSMENT Left Ventricular Ejection Fraction: by LV Gram 40 % Inferior Mid Hypokinesis - Moderate. Anterior Hypokinesis - Moderate Depressed Left Ventricular systolic function LEFT MAIN: Mild calcification, Mild luminal irregularities LEFT ANTERIOR DESCENDING ARTERY: Small size vessel with moderate calcification and proximal long 80% stenosis, mid 50% stenosis and mid to distal 80% stenosis. CIRCUMFLEX ARTERY: Mild calcification with the left circumflex artery giving off a first obtuse kavon nal branch with an 80% proximal stenosis in 2 branches of the circumflex artery with mild diffuse dis ease RIGHT CORONARY ARTERY: Dominant vessel with mid segment 90% stenosis COMPLICATIONS No Complications PROCEDURE MEDICATIONS Versed 1 mg IV Fentanyl 50 mcg IV Versed 1 mg IV Versed 1 mg IV Oxygen: 2 L/min via nasal cannula Heparin given IA 07/31/2021 08:07:40 Verapamil 2.5mg, Ntg 100mcgs, 3000 units of Heparin given IA 07/31/2021 08:07:40 SUMMARY OF HEMODYNAMIC DATA Time AIR REST ECG 07:27:25 AO 85/49 (64) SA 08:08:20 LV 91/-2, 2 08:16:31 LV 98/0, 3 08:16:52 LV 98/1, 4 08:17:22 LV 91/1, 7 08:17:28 LVp 96/1, 5 08:17:37 AOp 99/55 (74) 08:17:42 Signed By Preston Montero MD On 07/31/2021 08:43:40 Preston Montero MD
== END 2021-07-31 10:15 | disposition home or self-care (01) ==
LOC: CLSP 06:57
PROVIDERS: PCP Student in an Organized Health Care Education/Training Program; Referring Provider Internal Medicine Cardiovascular Disease; Visit Provider Internal Medicine Cardiovascular Disease
DX: I25.10 Atherosclerotic heart disease of native coronary artery without angina pectoris (principal); I42.9 Cardiomyopathy, unspecified; I73.9 Peripheral vascular disease, unspecified; E11.9 Type 2 diabetes mellitus without complications; Z87.891 Personal history of nicotine dependence; E78.00 Pure hypercholesterolemia, unspecified; I10 Essential (primary) hypertension; E78.5 Hyperlipidemia, unspecified; G62.9 Polyneuropathy, unspecified
CPT/HCPCS: 93458; 99152; 99153; J7030; Q9967; C1769; C1894

== ENCOUNTER 2021-08-01 13:18 | Inpatient (IN) | payer OTHER, SELFPAY ==
[2021-08-01 13:30] VITALS: RESP 18; BMI 23.6
--- NOTE | 2021-08-01 13:34 | MRI_ITS ---
STUDY: MRI LEFT MIDFOOT REASON FOR EXAM: Male, 60 years old. left midfoot ulcer TECHNIQUE: Standardized fat and water weighted pulse sequences were obtained in all 3 orthogonal planes. COMPARISON: X-ray 08/01/2021, MRI 05/26/2021 FINDINGS: Normal talonavicular articulation. Normal calcaneocuboid articulation. Normal navicular-cuneiform articulations. Normal intercuneiform articulations. Normal first tarsometatarsal articulation. Normal Lisfranc ligament. Normal second and third tarsometatarsal articulations. Normal cuboid fourth and cuboid fifth tarsometatarsal articulation. There is a large amount of fluid within the third metatarsal phalangeal joint with fluid extending proximally plantar to the third metatarsal bone and through the flexor tendons into the plantar soft tissues with focal soft tissue swelling worrisome for septic arthritis and surrounding phlegmon. There is associated marrow edema and cortical destruction of the head of the third metatarsal bone and the third proximal phalanx consistent with osteomyelitis. There is mild stress reaction of the second and fourth metatarsal heads and proximal phalanges. Normal tibialis anterior tendon. Normal extensor hallucis longus tendon. Normal extensor digitorum longus tendons. Normal peroneus longus tendon and distal insertion. Normal peroneus brevis tendon and distal insertion. There is diffuse atrophy of the intrinsic muscles of the foot consistent with a peripheral neuropathy. Normal extensor digitorum brevis muscle. Normal subcutis adipose space. MRI/Lower Ext/No Jt/w/o IMPRESSION: Septic arthritis of the third metatarsophalangeal joint with osteomyelitis of the head of the third metatarsal and the third proximal phalanx with phlegmon extending proximally and palmarly through the flexor tendons and distal plantar fascia into the superficial subcutaneous fat. Electronically Signed: Dave Real MD at 17:06 EDT ,
--- NOTE | 2021-08-01 13:46 | PCM.HP.STD ---
HPI - General General Date of Admission: 08/01/21 Date of Service: 08/01/21 Chief Complaint: Diabetic L foot infection HPI Narrative The patient is a 60 y/o M w/ PMHx: COPD, Former tobacco use, Diabetes mellitus type II, HTN, HLD, CAD/Ischemic cardiomyopathy w/ multivessel disease noted on catheterization 07/31/21 with planned referral to CT surgery who presents to the [facility] ED on 08/01/21 referred from [facility] per Podiatry with concern for worsening appearance over the last several days to the dorsal left foot and also at the base of the 2-3rd toes with discharge, erythema, edema and pain. Patient evaluated by podiatry as noted at the wound care center and given worsened appearance although no fevers or chills prompted referral for direct admission for surgical intervention. Podiatry did review case with cardiology, Dr. Montero who catheterize the patient the day prior given recent noted multivessel disease with planned future CT surgery evaluation who recommended only minimal anesthetic, localized which was confirmed with Dr. Montero who noted his intention to fax office notes with surgical clearance specifically for localized anesthetics only to [facility]. On presentation discussed case with podiatry and will also involve infectious disease and cardiology per their preference. Patient currently notes occasional nausea with pain and more fatigued over the last several days, currently rating pain 6-7 out of 10 in severity specifically to the foot. [facility] Medical History (Updated 08/01/21 @ 10:48 by Mary Ellen Nunez) Arthritis Atherosclerotic heart disease of [place] coronary artery without angina pectoris Back pain due to injury Chronic cough Diabetes Diabetes type 2, uncontrolled Essential hypertension Former tobacco use Hyperlipidemia Ischemic cardiomyopathy Non-pressure chronic ulcer of other part of left foot with fat layer exposed Restless legs Uncontrolled type 2 diabetes mellitus Home Medications Jardiance 25 mg PO DAILY 05/25/21 [History Last Taken 05/25/21] Ozempic 1 mg SUBCUT FR 05/25/21 [History Last Taken 05/19/21] albuterol sulfate 2 puff INHALATION PRN PRN 05/25/21 [History Last Taken 05/23/21] amlodipine-atorvastatin 10 - 40 tab PO DAILY 05/25/21 [History Last Taken 05/25/21] gabapentin 800 mg PO TID 05/25/21 [History Last Taken 07/31/21] glipizide 5 mg PO BID 05/25/21 [History Last Taken 05/25/21] metformin 1,000 mg PO BID 05/25/21 [History Last Taken 05/25/21] olmesartan 20 mg PO DAILY 05/25/21 [History Last Taken 05/25/21] trazodone 100 mg PO DAILY 05/25/21 [History Last Taken 05/24/21] aspirin 325 mg PO DAILY 06/06/21 [History Last Taken Unknown] clopidogrel [Plavix] 75 mg PO DAILY 07/11/21 [History Last Taken Unknown] cephalexin 500 mg PO TID 08/01/21 [History Last Taken Unknown] metronidazole 500 mg PO TID 08/01/21 [History Last Taken Unknown] Allergy/AdvReac Type Severity Reaction Status Date / Time No Known Allergies Allergy Verified 07/26/21 13:33 Family History (Updated 05/25/21 @ 20:[address] Jessica Rao MD) Mother Hypertension CVA (cerebral vascular accident) Diabetes Surgical History (Updated 07/31/21 @ 09:11 by Mary Ellen Nunez) H/O spinal fusion History of left heart catheterization (07/31/21) S/P hardware removal Social History (Updated 05/25/21 @ 20:[address] Jessica Rao MD) household members: spouse Smoking Status: Former smoker how long ago did patient quit smoking: Quit 1987, smoked 1.5 ppd since teen. alcohol intake: never substance use type: does not use ROS ROS Narrative Admission Review of Systems: CONSTITUTIONAL: No weight loss, fever, chills, + weakness or fatigue. HEENT: Eyes: No visual loss, blurred vision, double vision or yellow sclerae. Ears, Nose, Throat: No hearing loss, sneezing, congestion, runny nose or sore throat. SKIN: + Left foot ulceration and redness, pain, discharge. CARDIOVASCULAR: No chest pain, chest pressure or chest discomfort, palpitations, edema, orthopnea, syncopal events. RESPIRATORY: No shortness of breath, cough or sputum, wheezing, hemoptysis. GASTROINTESTINAL: No anorexia, nausea, vomiting or diarrhea, abdominal pain, melena, BRBPR. GENITOURINARY: No dysuria, frequency, urgency or retention. NEUROLOGICAL: No headache, dizziness, syncope, paralysis, ataxia, numbness or tingling in the extremities, focal weakness, change in bowel or bladder control, seizure. MUSCULOSKELETAL: No muscle, back pain, joint pain or stiffness. HEMATOLOGIC: + anemia, bleeding or bruising. LYMPHATICS: No enlarged nodes. No history of splenectomy. PSYCHIATRIC: No history of depression or anxiety. ENDOCRINOLOGIC: No reports of sweating, cold or heat intolerance. No polyuria or polydipsia. ALLERGIES: No history of asthma, hives, eczema or rhinitis. Vital Signs Vital Signs Vital Signs: Weight Weight: 169 lb 12.8 oz Body Mass Index (BMI) 23.6 Physical Exam Narrative Physical Examination: General: Awake, alert, oriented x 3 and cooperative, seated upright in the MS bed in no apparent distress. Skin: Normal color, normal turgor, no icterus, no cyanosis except significant plantar foot at the base of the second third toe wound nearly closed however there is significant periwound hyperkeratosis and very mild periwound erythema and tenderness with palpation, some concern for underlying abscess although no fluctuance, full-thickness ulceration on the plantar third metatarsal head with periwound edema, warmth, drainage from the third interspace. HEENT: AT/NC, EOMI, PERRLA, MMM, no carotid bruits or JVD noted. Lungs: Mildly diminished, greater bases, occasional expiratory wheeze moderate effort, no rales or rhonchi. Heart: Currently mildly tachycardic with rhythm; no gallop, rub audible. Abdomen: Soft, NTTP, ND, normal BS, no HSM. Extremities: No cyanosis, no clubbing, see skin, peripheral pulses intact, some tenderness aside foot as noted to the tendons of the ankle region. Neurological: Patient awake, alert, oriented as noted, cognitive function intact; pupils equally reactive to light and accommodation, cranial nerves II-XII grossly normal, moving all 4 extremities, no focal deficits, strength mildly to moderately global decrease secondary to acute presentation as noted. Psychiatric: Affect appears uncomfortable, fatigued, no acute evidence of depressive or anxiety feelings Assessment & Plan Assessment/Plan (1) Diabetic infection of left foot: PLAN: The patient is a 60 y/o M w/ PMHx: COPD, Former tobacco use, Diabetes mellitus type II, HTN, HLD, CAD/Ischemic cardiomyopathy w/ multivessel disease noted on catheterization 07/31/21 with planned referral to CT surgery who presents to the [facility] ED on 08/01/21 referred from [facility] per Podiatry with concern for worsening appearance over the last several days to the dorsal left foot and also at the base of the 2-3rd toes with discharge, erythema, edema and pain. #1. Acutely Infected Left foot Diabetic Wound: Will admit to medical surgical floor, maintain on IV Zosyn and vancomycin, will obtain Wound Cx, will obtain Wound MRSA PCR, plan repeat CBC in AM, continue affected extremity elevation above heart when seated and in bed, monitor erythema outline with VS checks as needed pain and antiemetic regimen, podiatry as well as ID consulted and pending, continue with offloading, wound RN consulted and pending. Podiatry notes intention to obtain MRI. Will maintain NPO after midnight for possible OR. Cardiology will send their office note from evaluation the day prior at which point they gave clearance for local anesthetic for podiatric surgery today. #2. CAD, Ischemic Cardiomyopathy: 07/31/2021 cardiac catheterization with noted triple-vessel disease with calcified vessels and complex anatomy with reduced LV systolic function with proximal and mid LAD disease, first obtuse marginal branch stenosis and mid right coronary artery disease, plan referral to CT surgery per cardiology. We will continue aspirin, Plavix, statin, on losartan, not on beta-kannan likely secondary to underlying COPD. Cardiology will send their office note from evaluation the day prior at which point they gave clearance for local anesthetic for podiatric surgery today. #3. Diabetes mellitus type II with neuropathy: Hold oral home regimen, hemoglobin A1c requested, nutrition consulted for education and teaching given presentation, ADA diet until n.p.o. status, accu checks w/ ISS, continue home gabapentin regimen. #4. Hypertension: Continue home regimen including amlodipine, omlesartan with hold parameters as needed, PRN hydralazine. #5. Hyperlipidemia: We will continue patient on statin therapy. #6. Chronic COPD: Not on any routine inhalers, PRN albuterol, HOB, IS parameters. #7. Former tobacco use: Encourage continued tobacco cessation. #8. Macrocytic anemia: Most recent hemoglobin 07/20/2021 noted to be 12.7, baseline 12, previous admission with within range vitamin B12 and low normal range folic acid levels. We will continue to trend. #9. DVT prophylaxis: SCDs, hold on chemoprophylaxis given pending podiatry evaluation for possible OR. Charges/Coding Visit Charges Inpatient E&M: 74847 Init Hosp L3
[2021-08-01 14:02] VITALS: BP 133/79; PULSE 110; RESP 18; TEMP 39.3; O2SAT 100
[2021-08-01] MEDS: 0.9% Normal Saline 1,000 ML 100 ML IV (14:35)
[2021-08-01 14:47] LABS: Magnesium 1.9 mg/dL (1.6-2.6)
[2021-08-01 14:48] LABS: Erythrocyte Sedimentation Rate 128 mm/hr (0-20)
[2021-08-01] MEDS: Morphine 2 MG/ML Syringe IV (14:50)
--- NOTE | 2021-08-01 14:50 | RAD_ITS ---
STUDY: X-RAY - LEFT FOOT CLINICAL: Left foot abscess/infection. TECHNIQUE: 3 view(s) of the foot. COMPARISON: Radiographs 05/25/2021. FINDINGS: There are small posterior and plantar calcaneal enthesophytes. Otherwise, unremarkable talus, calcaneus, and tarsal bones. Normal visualized subtalar, talonavicular, calcaneocuboid, tarsal and tarsometatarsal articulations. Normal metatarsi. Normal metatarsophalangeal joint of the great toe. Normal tibial and fibular sesamoid bones. Normal interphalangeal joint of the great toe. Normal phalanges of the great toe. Normal second through fifth metatarsophalangeal joints. There are erosive changes of the third proximal and middle phalanges suggestive of osteomyelitis. There is vascular calcification. RAD/Foot min 3 Views IMPRESSION: Erosive changes of the third proximal and middle phalanges suggestive of osteomyelitis. Electronically Signed: Scott Cardoso MD at 14:57 EDT ,
--- NOTE | 2021-08-01 14:57 | WOUNDNOTE ---
wound photo: left plantar foot
--- NOTE | 2021-08-01 14:57 | WOUNDNOTE ---
wound photo: left foot (between 3rd and 4th toes)
--- NOTE | 2021-08-01 15:45 | PCM.RX.CS ---
Consult Pharmacy has been consulted to manage selected antiobiotic: Vancomycin Suspected Infection: Skin/Soft tissue Goal Trough: 15-20 mcg/mL Pharmacy Plan for Drug Dosing: NEW START IV VANCOMYCIN Consulting Physician: Dr. Rao Indication: Left Foot Infection Goal Trough: 15-20 SrCr: 0.76 (from 07/20/21) CrCl: 113 mls/min Comments: pt received a 2000mg loading dose 08/01/21 at 1453 Vancomcyin Dose: based on pts weight and renal function, recommend an initial dose of 1000mg q8h starting 08/01/21 at 2300. Trough before the 4th total dose Pending Level: 08/02/21 at 1430 Pharmacy Service will continue to monitor and adjust dosing as required. Follow-Up Labs: Trough Vancomycin - 08/02/21 at 1430
[2021-08-01 16:30] LABS: M R Staph aureus DNA By PCR Negative (Negative); Probe Check PASS; Staph aureus DNA By PCR POSITIVE (Negative)
[2021-08-01 17:02] VITALS: BP 126/81; PULSE 109; RESP 18; TEMP 38.5; O2SAT 100
[2021-08-01] MEDS: Acetaminophen 325 MG Tablet 650 MG PO (17:05)
[2021-08-01] MEDS: Juven (unflavored) Packet 1 PACKET PO (17:06)
[2021-08-01 17:15] LABS: Bedside Glucose 174 mg/dL (74-106)
[2021-08-01 18:05] LABS: Absolute Lymphocyte Count 0.97 X10^3/uL (0.83-4.51); Absolute Neutrophil Count 9.3 X10^3/uL (2.0-7.7); Basophil# 0.04 X10^3/uL; Basophil% 0.4 % (0-1); Eosinophil# 0.02 X10^3/uL; Eosinophils% 0.2 % (0-5); Hematocrit 35.1 % (40-54); Hemoglobin 11.6 g/dL (13.0-16.5); Lymphocyte # 0.97 X10^3/ul (0.83-4.51); Lymphocyte % 8.7 % (19-41); Mean Corpuscular Hgb 31.3 pg (27.0-32.0); Mean Corpuscular Volume 94.6 fL (80-94); Monocyte# 0.68 X10^3/uL; Monocyte% 6.1 % (0-10); NRBC Flagged by Analyzer 0 % (0-5); Neutrophil # 9.34 X10^3/uL (2.7-7.7); Neutrophil % 84.2 % (47-70); Platelet Count 374 K/mm3 (150-450); RBC Distribution Width CV 12.1 % (11.6-14.6); RBC Distribution Width SD 42.4 fl (35.1-43.9); Red Blood Count 3.71 M/mm3 (4.6-6.2); White Blood Count 11.1 K/mm3 (4.4-11.0)
[2021-08-01 18:33] LABS: ALB/GLOB Ratio 0.5 RATIO (0.9-2.4); AST(SGOT) 15 U/L (15-37); Alanine Aminotransfer ALT/SGPT 19 U/L (16-61); Albumin, Serum 2.6 g/dL (3.2-5.0); Alkaline Phosphatase 72 U/L (45-117); Anion Gap 9 (5-15); BUN 16 mg/dL (7-18); BUN/Creat Ratio 16.4 RATIO (10-20); Chloride 101 mmol/L (98-107); Creatinine, Serum 0.98 mg/dL (0.70-1.30); EST Glomerular Filtration Rate 84 mL/min (>60); Est Glom Filt Rate - Afr Amer 101 mL/min (>60); Estimated Creatinine Clearance 87.51 ml/min; Globulin 5.1 g/dL (2.2-4.2); Glucose 161 mg/dL (74-106); Potassium 3.8 mmol/L (3.5-5.1); Protein, Total 7.7 g/dL (6.4-8.2); Sodium Level 135 mmol/L (136-145)
[2021-08-01 18:46] VITALS: BP 126/76; PULSE 93; RESP 18; TEMP 37.2; O2SAT 100
[2021-08-01 18:54] LABS: Lactic Acid 1.9 mmol/L (0.4-1.9)
[2021-08-01 20:49] VITALS: BP 114/56; PULSE 88; RESP 16; TEMP 37.3; O2SAT 95
[2021-08-01] MEDS: Gabapentin 800 MG Tablet PO (20:55)
[2021-08-01] MEDS: amLODIPine 10 MG Tablet PO (20:55)
[2021-08-01] MEDS: traZODone 100 MG Tablet PO (20:55)
[2021-08-01] MEDS: Atorvastatin Calcium 40 MG Tablet PO (20:56)
[2021-08-01] MEDS: Losartan Potassium 50 MG Tablet PO (20:56)
[2021-08-01 21:40] LABS: Bedside Glucose 143 mg/dL (74-106)
[2021-08-01] MEDS: Vancomycin IV 1,000 MG/200 ML BAG 200 MG IV (23:12)
[2021-08-02] VITALS (7 sets, daily range): BP systolic 127–134; BP diastolic 68–89; PULSE 80–93; RESP 16–20; TEMP 36.7–37.9; O2SAT 95–98
[2021-08-02] MEDS: 0.9% Saline Lock 10 ML Syringe IV (05:15)
[2021-08-02] MEDS: Gabapentin 800 MG Tablet PO ×3 (05:17→21:34)
[2021-08-02 05:29] LABS: Absolute Lymphocyte Count 1.58 X10^3/uL (0.83-4.51); Absolute Neutrophil Count 7.8 X10^3/uL (2.0-7.7); Basophil# 0.04 X10^3/uL; Basophil% 0.4 % (0-1); Eosinophil# 0.14 X10^3/uL; Eosinophils% 1.3 % (0-5); Hematocrit 29.9 % (40-54); Hemoglobin 9.7 g/dL (13.0-16.5); Lymphocyte # 1.58 X10^3/ul (0.83-4.51); Lymphocyte % 15.1 % (19-41); Mean Corp Hgb Conc 32.4 g/dL (32-36); Mean Corpuscular Hgb 30.3 pg (27.0-32.0); Mean Corpuscular Volume 93.4 fL (80-94); Mean Platelet Vol. 9.1 fl (6.2-12.0); Monocyte# 0.82 X10^3/uL; Monocyte% 7.9 % (0-10); NRBC Flagged by Analyzer 0 % (0-5); Neutrophil # 7.78 X10^3/uL (2.7-7.7); Neutrophil % 74.6 % (47-70); Platelet Count 313 K/mm3 (150-450); RBC Distribution Width SD 41.5 fl (35.1-43.9); White Blood Count 10.4 K/mm3 (4.4-11.0)
[2021-08-02 05:56] LABS: ALB/GLOB Ratio 0.5 RATIO (0.9-2.4); AST(SGOT) 15 U/L (15-37); Alanine Aminotransfer ALT/SGPT 17 U/L (16-61); Albumin, Serum 2.1 g/dL (3.2-5.0); Alkaline Phosphatase 62 U/L (45-117); Anion Gap 7 (5-15); BUN 21 mg/dL (7-18); BUN/Creat Ratio 23.4 RATIO (10-20); Calcium,Total 8.3 mg/dL (8.5-10.1); Chloride 102 mmol/L (98-107); EST Glomerular Filtration Rate 92 mL/min (>60); Est Glom Filt Rate - Afr Amer 112 mL/min (>60); Estimated Creatinine Clearance 95.29 ml/min; Globulin 4.5 g/dL (2.2-4.2); Glucose 152 mg/dL (74-106); Potassium 3.7 mmol/L (3.5-5.1); Protein, Total 6.6 g/dL (6.4-8.2); Sodium Level 134 mmol/L (136-145)
[2021-08-02] MEDS: Vancomycin IV 1,000 MG/200 ML BAG 200 MG IV ×2 (06:17→14:19)
[2021-08-02 06:41] LABS: Bedside Glucose 154 mg/dL (74-106)
[2021-08-02 07:25] LABS: Hemoglobin A1c 7.6 % (3.8-5.6)
--- NOTE | 2021-08-02 07:51 | PCM.CONS.GEN ---
Assessment & Plan Assessment/Plan (1) Non-pressure chronic ulcer of other part of left foot with necrosis of bone: PLAN: Patient examined evaluated, all findings reyes with patient in detail. Radiographs were negative for any gas infection but there is degenerative changes to the left third digit suggestive of osteomyelitis. This was confirmed with MRI imaging along with an abscess along the flexor tendon sheaths. Plan will be for decompression of abscess and amputation of left third digit in the operating room on at 08/03/21. This will be performed under local anesthesia per cardiology request due to need for bypass. Cultures demonstrate polymicrobial infection. Recommend ID consult. Patient receiving IV vanc/zosyn. Patient NPO after midnight Patient can bear weight to left heel for transfer purposes in surgical shoe. We will follow patient closely. (2) Osteomyelitis of foot, left, acute: (3) Abscess of left foot: (4) Peripheral vascular disease, unspecified: HPI Consult Data Date of Consult: 08/02/21 HPI Narrative HPI Narrative: NAYELI JOSE, is a 60 M who presents subsequently became infected requiring admission. Patient underwent recent revascularization to left lower extremity. Patient was being followed up in the wound care center which time decision was made for left third digit amputation due to nonhealing wound and persistent infection. Cultures were taken at that time and noted to be polymicrobial in nature. He was started on oral antibiotics and was sent to cardiology for further work-up prior to procedure. Due to failure to complete a stress test patient underwent heart catheterization which yielded significant coronary artery disease which will require triple bypass. Upon evaluation in the wound care center on 08/01/2021 the patient demonstrated worsening of his wound with increased swelling redness drainage and pain. Decision was for admission due to worsening of his infection with abscess formation. Patient denies any constitutional symptoms at this time notes some pain limited to the ulceration site extending into his leg which has been present since revascularization procedure. Patient denies any chest pain calf pain shortness of breath at this time. [facility] Medical History Arthritis Atherosclerotic heart disease of [place] coronary artery without angina pectoris Back pain due to injury Chronic cough Diabetes Diabetes type 2, uncontrolled Essential hypertension Former tobacco use Hyperlipidemia Ischemic cardiomyopathy Non-pressure chronic ulcer of other part of left foot with fat layer exposed Restless legs Uncontrolled type 2 diabetes mellitus Home Medications Jardiance 25 mg PO DAILY 05/25/21 [History Last Taken 05/25/21] Ozempic 1 mg SUBCUT FR 05/25/21 [History Last Taken 05/19/21] albuterol sulfate 2 puff INHALATION PRN PRN 05/25/21 [History Last Taken 05/23/21] amlodipine-atorvastatin 10 - 40 tab PO DAILY 05/25/21 [History Last Taken 05/25/21] gabapentin 800 mg PO TID 05/25/21 [History Last Taken 07/31/21] glipizide 5 mg PO BID 05/25/21 [History Last Taken 05/25/21] metformin 1,000 mg PO BID 05/25/21 [History Last Taken 05/25/21] olmesartan 20 mg PO DAILY 05/25/21 [History Last Taken 05/25/21] trazodone 100 mg PO DAILY 05/25/21 [History Last Taken 05/24/21] aspirin 325 mg PO DAILY 06/06/21 [History Last Taken Unknown] clopidogrel [Plavix] 75 mg PO DAILY 07/11/21 [History Last Taken Unknown] cephalexin 500 mg PO TID 08/01/21 [History Last Taken Unknown] metronidazole 500 mg PO TID 08/01/21 [History Last Taken Unknown] Allergy/AdvReac Type Severity Reaction Status Date / Time No Known Allergies Allergy Verified 07/26/21 13:33 Family History Mother Hypertension CVA (cerebral vascular accident) Diabetes Surgical History H/O spinal fusion History of left heart catheterization (07/31/21) S/P hardware removal Social History household members: spouse Smoking Status: Former smoker how long ago did patient quit smoking: Quit 1987, smoked 1.5 ppd since teen. alcohol intake: never substance use type: does not use ROS Constitutional Constitutional: Denies difficulty sleeping, malaise or night sweats Eyes Eyes: Denies bloody eye, blurry vision or discharge from eye(s) ENT HEENT: Denies mucositis, nasal congestion or post nasal drip Cardiovascular Cardiovascular: Reports easily tiring during activity, leg edema and leg ulcers; Denies clubbing Respiratory/Chest Respiratory/Chest: Denies change in phlegm color, chest congestion or excessive phlegm production Physical Exam Narrative Patient alert oriented person place and time. Vascular: Dorsalis pedis posterior tibial pulses palpable 1 out of 4 left lower extremity 2/4 right lower extremity. Atrophic skin changes noted. Some edema noted to the left forefoot with accompanying warmth and erythema. Neurologic: Light touch protective sensation diminished to bilateral lower extremity. Dermatologic: Full-thickness ulceration to the third digital lateral interspace. This extends down the level of the proximal phalanx. Mild purulent drainage periwound erythema warmth edema noted. There is an area to the plantar left forefoot which appears boggy and fluctuant in nature. Musculoskeletal: Muscular strength full to bilateral lower extremity compartments no gross deformity at this time no pain with calf squeeze. Lab / Micro Data Result Diagrams: 08/02/21 04:11 08/02/21 04:11 Labs: Laboratory Results - last 24 hr 08/01/21 13:45: S.aureus Protein A PCR POSITIVE H, MRSA (PCR) Negative 08/01/21 14:27: ESR 128 H 08/01/21 14:27: Magnesium 1.9, C-React Prot Ext Range 104.00 H 08/01/21 14:27: Sodium 135 L, Potassium 3.8, Chloride 101, Carbon Dioxide 25.0, Anion Gap 9, BUN 16, Creatinine 0.98, Estim Creat Clear Calc 87.51, Est GFR (MDRD) Af Amer 101, Est GFR (MDRD) Non-Af 84, BUN/Creatinine Ratio 16.4, Glucose 161 H, Calcium 9.0, Total Bilirubin 0.50, AST 15, ALT 19, Alkaline Phosphatase 72, Total Protein 7.7, Albumin 2.6 L, Globulin 5.1 H, Albumin/Globulin Ratio 0.5 L 08/01/21 17:00: POC Glucose 174 H 08/01/21 17:27: WBC 11.1 H, RBC 3.71 L, Hgb 11.6 L, Hct 35.1 L, MCV 94.6 H, MCH 31.3, MCHC 33.0, RDW Std Deviation 42.4, RDW Coeff of Imtiaz 12.1, Plt Count 374, MPV 9.0, Immature Gran % (Auto) 0.400, Neut % (Auto) 84.2 H, Lymph % (Auto) 8.7 L, [place] % (Auto) 6.1, Eos % (Auto) 0.2, Baso % (Auto) 0.4, Absolute Neuts (auto) 9.3 H, Absolute Lymphs (auto) 0.97, Nucleated RBC % 0 08/01/21 18:20: Lactic Acid 1.9 08/01/21 21:26: POC Glucose 143 H 08/02/21 04:11: WBC 10.4, RBC 3.20 L, Hgb 9.7 L, Hct 29.9 L, MCV 93.4, MCH 30.3, MCHC 32.4, RDW Std Deviation 41.5, RDW Coeff of Imtiaz 12.0, Plt Count 313, MPV 9.1, Immature Gran % (Auto) 0.700, Neut % (Auto) 74.6 H, Lymph % (Auto) 15.1 L, [place] % (Auto) 7.9, Eos % (Auto) 1.3, Baso % (Auto) 0.4, Absolute Neuts (auto) 7.8 H, Absolute Lymphs (auto) 1.58, Nucleated RBC % 0 08/02/21 04:11: Sodium 134 L, Potassium 3.7, Chloride 102, Carbon Dioxide 25.0, Anion Gap 7, BUN 21 H, Creatinine 0.90, Estim Creat Clear Calc 95.29, Est GFR (MDRD) Af Amer 112, Est GFR (MDRD) Non-Af 92, BUN/Creatinine Ratio 23.4 H, Glucose 152 H, Calcium 8.3 L, Total Bilirubin 0.50, AST 15, ALT 17, Alkaline Phosphatase 62, Total Protein 6.6, Albumin 2.1 L, Globulin 4.5 H, Albumin/Globulin Ratio 0.5 L 08/02/21 04:11: Hemoglobin A1c 7.6 H 08/02/21 06:16: POC Glucose 154 H Radiology Impression Lower Extremity MRI 08/01/21 13:34 IMPRESSION: Septic arthritis of the third metatarsophalangeal joint with osteomyelitis of the head of the third metatarsal and the third proximal phalanx with phlegmon extending proximally and palmarly through the flexor tendons and distal plantar fascia into the superficial subcutaneous fat. Electronically Signed: Dave Real MD at 17:06 EDT , Foot X-Ray 08/01/21 14:50 IMPRESSION: Erosive changes of the third proximal and middle phalanges suggestive of osteomyelitis. Electronically Signed: Scott Cardoso MD at 14:57 EDT ,
[2021-08-02] MEDS: oxyCODONE 5 MG Tablet PO (09:30)
[2021-08-02] MEDS: Acetaminophen 325 MG Tablet 650 MG PO ×2 (09:30→19:42)
[2021-08-02] MEDS: Juven (unflavored) Packet 1 PACKET PO (10:00)
[2021-08-02] MEDS: Aspirin 325 MG Tablet PO (10:00)
--- NOTE | 2021-08-02 10:52 | PN.HOSP_ITS ---
Subjective Subjective Patient seen and examined. He has no complaints. Pain is well controlled. He denies any fever, chills, nausea, vomiting or diarrhea. Review of systems is otherwise negative. Objective Data Objective Data Vital Signs: Vital Signs Temp Pulse Resp BP Pulse Ox 99.1 F 83 18 128/68 H 98 08/02/21 02:10 08/02/21 02:10 08/02/21 02:10 08/02/21 02:10 08/02/21 08:03 Oxygen Delivery Method Room Air Weight: 167 lb Body Mass Index (BMI) 23.6 Intake & Output: Intake and Output for Last 24 Hours 07/31/21 08/01/21 08/02/21 23:59 23:59 23:59 Intake Total 2096.67 / 2096.67 761.08 / 761.08 Balance 2096.67 / 2096.67 761.08 / 761.08 Lab / Micro Data Result Diagrams: 08/02/21 04:11 08/02/21 04:11 Labs: Laboratory Results - last 24 hr 08/01/21 13:45: S.aureus Protein A PCR POSITIVE H, MRSA (PCR) Negative 08/01/21 14:27: ESR 128 H 08/01/21 14:27: Magnesium 1.9, C-React Prot Ext Range 104.00 H 08/01/21 14:27: Sodium 135 L, Potassium 3.8, Chloride 101, Carbon Dioxide 25.0, Anion Gap 9, BUN 16, Creatinine 0.98, Estim Creat Clear Calc 87.51, Est GFR (MDRD) Af Amer 101, Est GFR (MDRD) Non-Af 84, BUN/Creatinine Ratio 16.4, Glucose 161 H, Calcium 9.0, Total Bilirubin 0.50, AST 15, ALT 19, Alkaline Phosphatase 72, Total Protein 7.7, Albumin 2.6 L, Globulin 5.1 H, Albumin/Globulin Ratio 0.5 L 08/01/21 17:00: POC Glucose 174 H 08/01/21 17:27: WBC 11.1 H, RBC 3.71 L, Hgb 11.6 L, Hct 35.1 L, MCV 94.6 H, MCH 31.3, MCHC 33.0, RDW Std Deviation 42.4, RDW Coeff of Imtiaz 12.1, Plt Count 374, MPV 9.0, Immature Gran % (Auto) 0.400, Neut % (Auto) 84.2 H, Lymph % (Auto) 8.7 L, [place] % (Auto) 6.1, Eos % (Auto) 0.2, Baso % (Auto) 0.4, Absolute Neuts (auto) 9.3 H, Absolute Lymphs (auto) 0.97, Nucleated RBC % 0 08/01/21 18:20: Lactic Acid 1.9 08/01/21 21:26: POC Glucose 143 H 08/02/21 04:11: WBC 10.4, RBC 3.20 L, Hgb 9.7 L, Hct 29.9 L, MCV 93.4, MCH 30.3, MCHC 32.4, RDW Std Deviation 41.5, RDW Coeff of Imtiaz 12.0, Plt Count 313, MPV 9.1, Immature Gran % (Auto) 0.700, Neut % (Auto) 74.6 H, Lymph % (Auto) 15.1 L, [place] % (Auto) 7.9, Eos % (Auto) 1.3, Baso % (Auto) 0.4, Absolute Neuts (auto) 7.8 H, Absolute Lymphs (auto) 1.58, Nucleated RBC % 0 08/02/21 04:11: Sodium 134 L, Potassium 3.7, Chloride 102, Carbon Dioxide 25.0, Anion Gap 7, BUN 21 H, Creatinine 0.90, Estim Creat Clear Calc 95.29, Est GFR (MDRD) Af Amer 112, Est GFR (MDRD) Non-Af 92, BUN/Creatinine Ratio 23.4 H, Glucose 152 H, Calcium 8.3 L, Total Bilirubin 0.50, AST 15, ALT 17, Alkaline Phosphatase 62, Total Protein 6.6, Albumin 2.1 L, Globulin 4.5 H, Albumin/Globulin Ratio 0.5 L 08/02/21 04:11: Hemoglobin A1c 7.6 H 08/02/21 06:16: POC Glucose 154 H Micro: Microbiology 08/01/21 13:45 Wound Abcess - No Site/Description Given Gram Stain - Final Radiography Diagnostic Testing: Radiology Impression Lower Extremity MRI 08/01/21 13:34 IMPRESSION: Septic arthritis of the third metatarsophalangeal joint with osteomyelitis of the head of the third metatarsal and the third proximal phalanx with phlegmon extending proximally and palmarly through the flexor tendons and distal plantar fascia into the superficial subcutaneous fat. Electronically Signed: Dave Real MD at 17:06 EDT , Foot X-Ray 08/01/21 14:50 IMPRESSION: Erosive changes of the third proximal and middle phalanges suggestive of osteomyelitis. Electronically Signed: Scott Cardoso MD at 14:57 EDT , Physical Exam Const alert, oriented x3 and no apparent distress Exam Limitations: no limitations HEENT head/scalp atraumatic Head and Scalp: normocephalic Eyes PERRL, EOMs intact bilaterally and conjunctivae normal Neck no lymphadenopathy and supple Resp normal respiratory effort, no retractions, no use of accessory muscles and clear to auscultation bilaterally Cardio regular rate, regular rhythm, S1 normal heart sound, S2 normal heart sound and no murmurs GI normal to inspection, nondistended, normoactive bowel sounds, soft to palpation, non-tender and non-distended Extremity Extremity Narrative: left foot wrapped foot wrapped in bandage. Peripheral Pulses: Yes pulses 2+ throughout Skin Skin Narrative: as uner extremities. Neuro oriented x3, CN's II-XII intact bilaterally and moves all extremities Sensorium / Orientation: awake and alert Psych affect normal Assessment & Plan Assessment/Plan (1) Abscess of left foot: (2) Osteomyelitis of foot, left, acute: PLAN: #Left diabetic foot infection * on IV vancomycin and zosyn. * left foot wrapped in bandage. * podiatry on board. For MRI of the foot today * #CAD * had cardiac cath on 07/31/2021 which showed triple vessel disease with reduced LV systolic function; she was to be referred to CT surgery per cardiology. * on aspirin, plavix, statin and losartan. * was evaluated by cardiology the day before admission for cardiac risk stratification and has apparently been cleared for local anesthetic for podiatry surgery. * #Diabetes mellitus with peripheral neuropathy * on gabapentin * on ISS. Accuchecks ACHS * A1C pending * #Hypertension; on amlodipine, olmesartan. IV hydralazine prn #Hyperlipidemia: on statin #Chronic COPD: on breathing treatment with bronchodilators. #ANemia * Hb is 9.7. Was 12.7 on admission. Will monitor. * DVT prophylaxis; SCDs. Charges/Coding Visit Charges Inpatient E&M: 60684 Subs Hosp L2
[2021-08-02 11:25] LABS: Bedside Glucose 219 mg/dL (74-106)
--- NOTE | 2021-08-02 11:50 | CASEMGMT ---
JOE CASTILLO Face to Face with patient for initial transition planning/care coordination assessment. RN CM introduced self and role at [facility]. Patient lying in bed, alert and oriented. Patient willing to participate in assessment and is able to answer all questions appropriately. Care providers, pharmacy, and demographics verified. Patient wishes to discharge home. JOE CASTILLO discussed possible HHC and IV ATBs at discharge. RN CM provided list of HHC and infusion company Patient states he has no further needs or concerns at this time. CM to follow for discharge planning needs that may arise. PCP: Kieran Specialists: Janene publishing agent Preferred Pharmacy: [facility] Insurance: [employer] Prescription Benefit: yes Living Will/HPOA: none LNOK: Living Arrangements: Patient lives with in a split level home with 8 steps to enter the main living quarters where patient states he will stay. Patient states he is independent at home. Transportation: Self, DME/HHC: Patient states he has cane, walker, and glucometer with supplies at home. No previous HHC. Patient states he follows at the wound center. Will monitor for HHC pending course of treatment. Disposition Plan: Patient to discharge home with family support and follow-up plans. Possible HHC. Chelsie COLON, RN, CM
[2021-08-02 15:15] LABS: Vancomycin, Trough Level 20.9 ug/mL (5.0-15.0)
--- NOTE | 2021-08-02 15:42 | CON.PCM.ID_ITS ---
Assessment & Plan Assessment/Plan (1) Osteomyelitis of foot, left, acute: PLAN: Wound cx pending. Polymicrobrial growth seen recently, including MSSA, enterobacter, CoNS, enterococcus. On vanc/zosyn, OR planned for tomorrow. Will follow, thank you HPI Consult Data Date of Consult: 08/02/21 HPI Narrative HPI Narrative: NAYELI JOSE, is a 60 M who presented with worsening L foot pain, rednes, swelling, drainage. Sx present over past 1-2 weeks. Some fever. Was on doxy and cipro from his manager client service for recent (+) wound cx. Now admitted, on vanc/zosyn, planned OR tomorrow. Full ROS performed and neg except as noted above [facility] Medical History Arthritis Atherosclerotic heart disease of [place] coronary artery without angina pectoris Back pain due to injury Chronic cough Diabetes Diabetes type 2, uncontrolled Essential hypertension Former tobacco use Hyperlipidemia Ischemic cardiomyopathy Non-pressure chronic ulcer of other part of left foot with fat layer exposed Restless legs Uncontrolled type 2 diabetes mellitus Home Medications Jardiance 25 mg PO DAILY 05/25/21 [History Last Taken 05/25/21] Ozempic 1 mg SUBCUT FR 05/25/21 [History Last Taken 05/19/21] albuterol sulfate 2 puff INHALATION PRN PRN 05/25/21 [History Last Taken 05/23/21] amlodipine-atorvastatin 10 - 40 tab PO DAILY 05/25/21 [History Last Taken 05/25/21] gabapentin 800 mg PO TID 05/25/21 [History Last Taken 07/31/21] glipizide 5 mg PO BID 05/25/21 [History Last Taken 05/25/21] metformin 1,000 mg PO BID 05/25/21 [History Last Taken 05/25/21] olmesartan 20 mg PO DAILY 05/25/21 [History Last Taken 05/25/21] trazodone 100 mg PO DAILY 05/25/21 [History Last Taken 05/24/21] aspirin 325 mg PO DAILY 06/06/21 [History Last Taken Unknown] clopidogrel [Plavix] 75 mg PO DAILY 07/11/21 [History Last Taken Unknown] cephalexin 500 mg PO TID 08/01/21 [History Last Taken Unknown] metronidazole 500 mg PO TID 08/01/21 [History Last Taken Unknown] Allergy/AdvReac Type Severity Reaction Status Date / Time No Known Allergies Allergy Verified 07/26/21 13:33 Family History Mother Hypertension CVA (cerebral vascular accident) Diabetes Surgical History H/O spinal fusion History of left heart catheterization (07/31/21) S/P hardware removal Social History household members: spouse Smoking Status: Former smoker how long ago did patient quit smoking: Quit 1987, smoked 1.5 ppd since teen. alcohol intake: never substance use type: does not use Physical Exam Const alert, oriented x3 and no apparent distress General Appearance: cooperative Exam Limitations: no limitations HEENT normocephalic and head/scalp atraumatic Eyes PERRL and EOMs intact bilaterally Neck supple and No nodes Resp normal air movement and clear to auscultation bilaterally Cardio regular rate and regular rhythm GI soft to palpation, non-tender and non-distended Extremity no clubbing, cyanosis or edema Skin Skin Narrative: foot wrapped Neuro CN's II-XII intact bilaterally Lab / Micro Data Result Diagrams: 08/02/21 04:11 08/02/21 04:11 Labs: Laboratory Results - last 24 hr 08/01/21 13:45: S.aureus Protein A PCR POSITIVE H, MRSA (PCR) Negative 08/01/21 14:27: Sodium 135 L, Potassium 3.8, Chloride 101, Carbon Dioxide 25.0, Anion Gap 9, BUN 16, Creatinine 0.98, Estim Creat Clear Calc 87.51, Est GFR (MDRD) Af Amer 101, Est GFR (MDRD) Non-Af 84, BUN/Creatinine Ratio 16.4, Glucose 161 H, Calcium 9.0, Total Bilirubin 0.50, AST 15, ALT 19, Alkaline Phosphatase 72, Total Protein 7.7, Albumin 2.6 L, Globulin 5.1 H, Albumin/Globulin Ratio 0.5 L 08/01/21 17:00: POC Glucose 174 H 08/01/21 17:27: WBC 11.1 H, RBC 3.71 L, Hgb 11.6 L, Hct 35.1 L, MCV 94.6 H, MCH 31.3, MCHC 33.0, RDW Std Deviation 42.4, RDW Coeff of Imtiaz 12.1, Plt Count 374, MPV 9.0, Immature Gran % (Auto) 0.400, Neut % (Auto) 84.2 H, Lymph % (Auto) 8.7 L, [place] % (Auto) 6.1, Eos % (Auto) 0.2, Baso % (Auto) 0.4, Absolute Neuts (auto) 9.3 H, Absolute Lymphs (auto) 0.97, Nucleated RBC % 0 08/01/21 18:20: Lactic Acid 1.9 08/01/21 21:26: POC Glucose 143 H 08/02/21 04:11: WBC 10.4, RBC 3.20 L, Hgb 9.7 L, Hct 29.9 L, MCV 93.4, MCH 30.3, MCHC 32.4, RDW Std Deviation 41.5, RDW Coeff of Imtiaz 12.0, Plt Count 313, MPV 9.1, Immature Gran % (Auto) 0.700, Neut % (Auto) 74.6 H, Lymph % (Auto) 15.1 L, [place] % (Auto) 7.9, Eos % (Auto) 1.3, Baso % (Auto) 0.4, Absolute Neuts (auto) 7.8 H, Absolute Lymphs (auto) 1.58, Nucleated RBC % 0 08/02/21 04:11: Sodium 134 L, Potassium 3.7, Chloride 102, Carbon Dioxide 25.0, Anion Gap 7, BUN 21 H, Creatinine 0.90, Estim Creat Clear Calc 95.29, Est GFR (MDRD) Af Amer 112, Est GFR (MDRD) Non-Af 92, BUN/Creatinine Ratio 23.4 H, Glucose 152 H, Calcium 8.3 L, Total Bilirubin 0.50, AST 15, ALT 17, Alkaline Phosphatase 62, Total Protein 6.6, Albumin 2.1 L, Globulin 4.5 H, Albumin/Globulin Ratio 0.5 L 08/02/21 04:11: Hemoglobin A1c 7.6 H 08/02/21 06:16: POC Glucose 154 H 08/02/21 11:21: POC Glucose 219 H 08/02/21 14:30: Vancomycin Trough 20.9 H Micro: Microbiology 08/01/21 13:45 Wound Abcess - No Site/Description Given Gram Stain - Final 08/01/21 13:45 Wound Abcess - No Site/Description Given Wound Culture - Preliminary Gram negative usman GNR lactose domestic cleaner Gram positive organism Radiology Impression Lower Extremity MRI 08/01/21 13:34 IMPRESSION: Septic arthritis of the third metatarsophalangeal joint with osteomyelitis of the head of the third metatarsal and the third proximal phalanx with phlegmon extending proximally and palmarly through the flexor tendons and distal plantar fascia into the superficial subcutaneous fat. Electronically Signed: Dave Real MD at 17:06 EDT ,
--- NOTE | 2021-08-02 16:15 | PCM.RX.CS ---
Consult Pharmacy has been consulted to manage selected antiobiotic: Vancomycin Type of Consult: Follow-up Suspected Infection: Skin/Soft tissue Prior Doses of Antibiotics Received/Current Regimen: On 1gm iv q8h. Labs: Sodium 134 mmol/L (136-145) L 08/02/21 04:11 Potassium 3.7 mmol/L (3.5-5.1) 08/02/21 04:11 Chloride 102 mmol/L (98-107) 08/02/21 04:11 Carbon Dioxide 25.0 mmol/L (21.0-32.0) 08/02/21 04:11 Anion Gap 7 (5-15) 08/02/21 04:11 BUN 21 mg/dL (7-18) H 08/02/21 04:11 Creatinine 0.90 mg/dL (0.70-1.30) 08/02/21 04:11 Est GFR (MDRD) Af Amer 112 mL/min (>60) 08/02/21 04:11 Est GFR (MDRD) Non-Af 92 mL/min (>60) 08/02/21 04:11 BUN/Creatinine Ratio 23.4 RATIO (10-20) H 08/02/21 04:11 Glucose 152 mg/dL (74-106) H 08/02/21 04:11 Vancomycin Trough 20.9 ug/mL (5.0-15.0) H 08/02/21 14:30 Microbiology: Microbiology 08/01/21 13:45 Wound Abcess - No Site/Description Given Gram Stain - Final 08/01/21 13:45 Wound Abcess - No Site/Description Given Wound Culture - Preliminary Gram negative usman GNR lactose medical assisting instructor Gram positive organism Weight used for dosin.8 kg Estimated Creatinine Clearance: 95 ml/min Goal Trough: 15-20 mcg/mL Pharmacy Plan for Drug Dosing: Had order for trough level before 1500 dose today. However, dose hung early and trough drawn ~10 min after infusion started. Order put in for new trough tonight before 2300 dose. Pharmacy Service will continue to monitor and adjust dosing as required. Follow-Up Labs: Trough Vancomycin - 08.02.21 @2230 before 2300 dose
[2021-08-02 16:30] LABS: Bedside Glucose 241 mg/dL (74-106)
[2021-08-02] MEDS: traZODone 100 MG Tablet PO (21:34)
[2021-08-02] MEDS: Losartan Potassium 50 MG Tablet PO (21:34)
[2021-08-02] MEDS: Atorvastatin Calcium 40 MG Tablet PO (21:34)
[2021-08-02] MEDS: amLODIPine 10 MG Tablet PO (21:34)
[2021-08-02 21:41] LABS: Bedside Glucose 259 mg/dL (74-106)
[2021-08-02 23:08] LABS: Vancomycin, Trough Level 12.2 ug/mL (5.0-15.0)
--- NOTE | 2021-08-02 23:20 | PHA.PHARE_ITS ---
Consult Pharmacy has been consulted to manage selected antiobiotic: Vancomycin Type of Consult: Follow-up Labs: Sodium 134 mmol/L (136-145) L 08/02/21 04:11 Potassium 3.7 mmol/L (3.5-5.1) 08/02/21 04:11 Chloride 102 mmol/L (98-107) 08/02/21 04:11 Carbon Dioxide 25.0 mmol/L (21.0-32.0) 08/02/21 04:11 Anion Gap 7 (5-15) 08/02/21 04:11 BUN 21 mg/dL (7-18) H 08/02/21 04:11 Creatinine 0.90 mg/dL (0.70-1.30) 08/02/21 04:11 Est GFR (MDRD) Af Amer 112 mL/min (>60) 08/02/21 04:11 Est GFR (MDRD) Non-Af 92 mL/min (>60) 08/02/21 04:11 BUN/Creatinine Ratio 23.4 RATIO (10-20) H 08/02/21 04:11 Glucose 152 mg/dL (74-106) H 08/02/21 04:11 Vancomycin Trough 12.2 ug/mL (5.0-15.0) 08/02/21 22:11 Microbiology: Microbiology 08/01/21 13:45 Wound Abcess - No Site/Description Given Gram Stain - Final 08/01/21 13:45 Wound Abcess - No Site/Description Given Wound Culture - Preliminary Gram negative usman GNR lactose tubing drier Gram positive organism Goal Trough: 15-20 mcg/mL Pharmacy Plan for Drug Dosing: Pharmacy Service will continue to monitor and adjust dosing as required. TROUGH 12.2 AT 8 HOURS. INCREASE TO 1250MG Q8H ANF FOLLOW UP TROUGH PRIOR TO 4TH DOSE Follow-Up Labs: Trough Vancomycin Labs to be done on [date and time ordered]: 08/04 @ 0700
[2021-08-03] VITALS (8 sets, daily range): BP systolic 98–158; BP diastolic 72–107; PULSE 78–103; RESP 16–18; TEMP 36.6–37.1; O2SAT 94–98
[2021-08-03] MEDS: Gabapentin 800 MG Tablet PO ×3 (05:15→20:42)
[2021-08-03 05:35] LABS: Absolute Lymphocyte Count 1.41 X10^3/uL (0.83-4.51); Absolute Neutrophil Count 8.2 X10^3/uL (2.0-7.7); Basophil# 0.03 X10^3/uL; Basophil% 0.3 % (0-1); Eosinophil# 0.16 X10^3/uL; Eosinophils% 1.5 % (0-5); Hematocrit 32.1 % (40-54); Hemoglobin 10.8 g/dL (13.0-16.5); Lymphocyte # 1.41 X10^3/ul (0.83-4.51); Lymphocyte % 13.4 % (19-41); Mean Corp Hgb Conc 33.6 g/dL (32-36); Mean Corpuscular Hgb 30.8 pg (27.0-32.0); Mean Corpuscular Volume 91.5 fL (80-94); Mean Platelet Vol. 8.7 fl (6.2-12.0); Monocyte# 0.69 X10^3/uL; Monocyte% 6.5 % (0-10); NRBC Flagged by Analyzer 0 % (0-5); Neutrophil % 77.7 % (47-70); Platelet Count 293 K/mm3 (150-450); RBC Distribution Width CV 11.9 % (11.6-14.6); Red Blood Count 3.51 M/mm3 (4.6-6.2); White Blood Count 10.6 K/mm3 (4.4-11.0)
[2021-08-03 05:47] LABS: International Normalized Ratio 1.1; Prothrombin Time (Protime)PT. 14.3 SECONDS (11.7-14.9)
[2021-08-03 06:25] LABS: Anion Gap 9 (5-15); BUN 21 mg/dL (7-18); BUN/Creat Ratio 24.2 RATIO (10-20); Calcium,Total 8.6 mg/dL (8.5-10.1); Chloride 103 mmol/L (98-107); Creatinine, Serum 0.87 mg/dL (0.70-1.30); EST Glomerular Filtration Rate 96 mL/min (>60); Est Glom Filt Rate - Afr Amer 116 mL/min (>60); Estimated Creatinine Clearance 98.57 ml/min; Glucose 190 mg/dL (74-106); Potassium 3.8 mmol/L (3.5-5.1); Sodium Level 133 mmol/L (136-145)
[2021-08-03 06:50] LABS: Bedside Glucose 183 mg/dL (74-106)
--- NOTE | 2021-08-03 08:19 | WOUNDNOTE ---
Plan is for patient to go to surgery today. will leave dressing in place.
--- NOTE | 2021-08-03 09:59 | PN.HOSP_ITS ---
Subjective Subjective Patient seen and examined. He had no complaints today and had an uneventful night. Review of systems otherwise negative. He is due for surgery today. He has remained hemodynamically stable. Objective Data Objective Data Vital Signs: Vital Signs Temp Pulse Resp BP Pulse Ox 98 F 82 16 134/75 H 97 08/03/21 02:15 08/03/21 02:15 08/03/21 02:15 08/03/21 02:15 08/03/21 02:15 Oxygen Delivery Method Room Air Weight: 167 lb Body Mass Index (BMI) 23.6 Intake & Output: Intake and Output for Last 24 Hours 08/01/21 08/02/21 08/03/21 23:59 23:59 23:59 Intake Total 2096.67 / 2096.67 2214.08 / 2214.08 650 / 650 Balance 2096.67 / 2096.67 2214.08 / 2214.08 650 / 650 Lab / Micro Data Result Diagrams: 08/03/21 05:29 08/03/21 05:29 Labs: Laboratory Results - last 24 hr 08/02/21 11:21: POC Glucose 219 H 08/02/21 14:30: Vancomycin Trough 20.9 H 08/02/21 16:25: POC Glucose 241 H 08/02/21 21:32: POC Glucose 259 H 08/02/21 22:11: Vancomycin Trough 12.2 08/03/21 05:29: PT 14.3, INR 1.1, APTT 37.0 H 08/03/21 05:29: WBC 10.6, RBC 3.51 L, Hgb 10.8 L, Hct 32.1 L, MCV 91.5, MCH 30.8, MCHC 33.6, RDW Std Deviation 40.0, RDW Coeff of Imtiaz 11.9, Plt Count 293, MPV 8.7, Immature Gran % (Auto) 0.600, Neut % (Auto) 77.7 H, Lymph % (Auto) 13.4 L, [place] % (Auto) 6.5, Eos % (Auto) 1.5, Baso % (Auto) 0.3, Absolute Neuts (auto) 8.2 H, Absolute Lymphs (auto) 1.41, Nucleated RBC % 0 08/03/21 05:29: Sodium 133 L, Potassium 3.8, Chloride 103, Carbon Dioxide 21.0, Anion Gap 9, BUN 21 H, Creatinine 0.87, Estim Creat Clear Calc 98.57, Est GFR (MDRD) Af Amer 116, Est GFR (MDRD) Non-Af 96, BUN/Creatinine Ratio 24.2 H, Glucose 190 H, Calcium 8.6 08/03/21 06:44: POC Glucose 183 H Micro: Microbiology 08/01/21 13:45 Wound Abcess - No Site/Description Given Gram Stain - Final 08/01/21 13:45 Wound Abcess - No Site/Description Given Wound Culture - Preliminary Gram negative usman GNR lactose records coordinator Gram positive organism Physical Exam Const alert, oriented x3 and no apparent distress Exam Limitations: no limitations HEENT head/scalp atraumatic and moist oral mucous membranes Head and Scalp: normocephalic Eyes PERRL, EOMs intact bilaterally and conjunctivae normal Neck no lymphadenopathy and supple Resp normal respiratory effort, no retractions, no use of accessory muscles and clear to auscultation bilaterally Cardio regular rate, regular rhythm, S1 normal heart sound, S2 normal heart sound and no murmurs GI normal to inspection, nondistended, normoactive bowel sounds, soft to palpation, non-tender and non-distended Extremity Extremity Narrative: left foot wrapped foot wrapped in bandage. Peripheral Pulses: Yes pulses 2+ throughout Skin Skin Narrative: as uner extremities. Neuro oriented x3, CN's II-XII intact bilaterally and moves all extremities Sensorium / Orientation: awake and alert Psych affect normal Assessment & Plan Assessment/Plan (1) Abscess of left foot: (2) Osteomyelitis of foot, left, acute: PLAN: #Left diabetic foot infection * on IV vancomycin and zosyn. * left foot wrapped in bandage. * podiatry on board. * MRI of the foot showed septic arthritis of the third metatarsophalangeal joint with osteomyelitis of the head of the third metatarsal and third proximal phalanx with phlegmon extending proximally and probably through the flexor tendons and distal plantar fascia into the superficial subcutaneous fat * for surgery by podiatry today * #CAD * had cardiac cath on 07/31/2021 which showed triple vessel disease with reduced LV systolic function; she was to be referred to CT surgery per cardiology. * on aspirin, plavix, statin and losartan. * was evaluated by cardiology the day before admission for cardiac risk stratification and has apparently been cleared for local anesthetic for podiatry surgery. * #Diabetes mellitus with peripheral neuropathy * on gabapentin * on ISS. Accuchecks ACHS * A1C pending * #Hypertension; on amlodipine, olmesartan. IV hydralazine prn #Hyperlipidemia: on statin #Chronic COPD: on breathing treatment with bronchodilators. #ANemia * Hb is 10.8. Was 12.7 on admission. Will monitor. * DVT prophylaxis; SCDs. Charges/Coding Visit Charges Inpatient E&M: 11265 Subs Hosp L2
--- NOTE | 2021-08-03 10:25 | PCM.PN.ID ---
Physical Exam Narrative Feeling better, foot less sore, no fever, no n/v/d. Const alert and no apparent distress General Appearance: cooperative Resp normal air movement and clear to auscultation bilaterally Cardio regular rate and regular rhythm GI soft to palpation, non-tender and non-distended Skin Skin Narrative: foot wrapped ID ID: Route of nutrition/ use of supplements: [] Nutritional Intake: [] IV Site: [] Johnson Catheter: [] Assessment & Plan Assessment/Plan (1) Osteomyelitis of foot, left, acute: PLAN: Wound cx with GNR and GPC here. Polymicrobrial growth seen recently, including MSSA, enterobacter, CoNS, enterococcus. On vanc/zosyn, OR planned for today Will follow, thank you
[2021-08-03] MEDS: Lactated Ringers 1,000 ML 15 ML IV (13:27)
[2021-08-03 13:36] LABS: Bedside Glucose 159 mg/dL (74-106)
--- NOTE | 2021-08-03 14:15 | AMP_PTH ---
PATIENT: NAYELI JOSE LOC: MS3 U#:[id number] AGE/SX: 60/M ROOM: [facility] [place] RE08/01/[address]: Dr. Connie Rai MD : 1960 BED: 1 DIS: 08/07/2021 SPEC #: [id number] RECD: 08/04/21 06:55 STATUS: SEVERIANO RE #: [id number] KARRI: 08/03/21 14:[address]: Pasquale Watters DEPT: SURGICAL PATHOLOGY RECD BY: Celia Sheth ENTERED: 08/04/21 09:53 SP TYPE: Amputation OTHR DR: MD Dr. Alistair Galan MD Dr. Michael Halko, DO Dr. Nana Yaa Koram, MD Dr. Robert Leininger, MD Tissues: A - Toe, NOS B - Bone of foot, NOS Procedures: Decalcification bone/plaque Surgery Specimen Level IV HEADER OPERATION: Third digit amputation with abscess compression PRE-OP DIAGNOSIS: Ulcer left foot TISSUE SUBMITTED: A ? Third toe left foot, B ? Clearance margins of third metatarsal MICROSCOPIC DIAGNOSIS A. Third toe left foot, amputation: Acute and chronic inflammation of soft tissue. Acute osteomyelitis. B. Bone, clearance fragment of third metatarsal: Consistent with acute osteomyelitis. AM:iraida 08/09/2021 MICROSCOPIC DESCRIPTION Slides are reviewed. GROSS DESCRIPTION A - Received in fixative is one container labeled with the patient's name and designated third toe left foot. The specimen consists of attached bone, skin and soft tissue measuring 3 cm in length and 2 cm in diameter. No gross lesions are identified. Also present in the specimen container are multiple irregular fragments of bone, tendinous tissue and other soft tissue measuring in aggregate 8 x 5 x 2 cm. Furnace Repairer Helper sections are submitted in two cassettes after decalcification as follows: 1 ? longitudinal section of bone, 2 ? bone and soft tissue free in the container. B - Received in fixative is one container labeled with the patient's name and designated clearance margins of third metatarsal. The specimen consists of a cylindrical fragment of short bone measuring 5 cm in length and 1 cm in diameter. The specimen is sectioned and totally submitted in one cassette after decalcification. / AM:iraida 08/04/2021 TC:2 CPT: 50900 x2, 895168 x2
--- NOTE | 2021-08-03 14:15 | RAD_ITS ---
STUDY: INTRAOPERATIVE FLUOROSCOPY TECHNIQUE: The examination was performed with referring physician in attendance. Under fluoroscopic observation, fluoroscopic images were obtained. Radiologist was not present for the study. Radiologist did not perform the procedure. This dictation is for documentation of the radiation dosage only. There is no interpretation of the images. TOTAL NUMBER OF IMAGES: 1 COMPARISON: None RADIATION DOSE: .037 mGy FLUOROSCOPY TIME: .06 seconds REASON FOR EXAM: PAIN Male, 60 years old. FINDINGS: Amputation of the 3rd digit. There is soft tissue changes at this level. The mid 3rd metatarsal bone has been resected. RAD/Toe(s) Min 2 Views IMPRESSION: Fluoroscopic assistance images were obtained. Dictation for documentation purposes only. Electronically Signed: Lauro Green MD at 16:02 EDT ,
[2021-08-03] MEDS: Bupivacaine Mpf 0.5% 30 ML VIAL (14:25)
--- NOTE | 2021-08-03 15:19 | OP.PCM_ITS ---
Problems Associated Problem List Diagnoses (1) Peripheral vascular disease, unspecified: (2) Abscess of left foot: (3) Osteomyelitis of foot, left, acute: (4) Non-pressure chronic ulcer of other part of left foot with necrosis of bone: Operative Report Date of Procedure: 08/03/21 Date of surgery 08/03/2021 Surgeon Pasquale Watters D.P.M. Roll Tube Setter: Kevin Chandra D.P.M. PGY 1 Preoperative diagnosis: 1) Left foot abscess down the level of bone with osteomyelitis left third digit extending into third metatarsal head 2) left foot abscess down the level of the flexor tendon sheath plantar foot Postoperative diagnosis: Same Procedure: 1) Left partial third ray resection 2) left foot abscess flexor tendon sheath Anesthesia: MAC with local Hemostasis: None due to peripheral arterial disease Estimated blood loss minimal Materials none retained Injectables: 30 cc half percent Marcaine plain Indications: This type II diabetic neuropathic patient with significant peripheral arterial disease under went revascularization surgery by Dr. Maciel. Upon attempting clearance for amputation of the left third digit patient underwent cardiac stress testing which she subsequently failed. He underwent heart catheterization demonstrated significant disease requiring bypass. Due to development of significant infection with foot swelling edema pain redness warmth and residual wound to the left third digit decision was made for urgent amputation of the left third ray partially and decompression abscess to the flexor sheath plantarly. MRI confirmed abscess and osteomyelitis to the left third digit and third metatarsal. Abscess confirmed to left plantar foot flexor tendon sheath. After discussion with warehouse supervisor 3rd shift recommended proceeding with amputation of the left third digit and decompressing the abscess as proceeding with coronary artery bypass surgery will likely require resolution of his infection. Procedure in detail: Patient brought back to the operating placed comfortably in the supine position on the operating room table. All osseous prominences offloaded to prevent any compression neuropraxia. Well-padded ankle tourniquet applied to left lower extremity. This was not used throughout the case. Local block was performed to the left third ray using 30 cc half percent Marcaine plain. Left lower extremity was scrubbed prepped draped using typical aseptic fashion. 2 procedures were performed and described below. The first procedure was a left partial third ray resection. The second procedure was a incision and drainage at a separate site down to the level of tendon sheath, left foot. Once cleared by anesthesia incision was made to the dorsal left third digit in the left third digit was amputated level at the level of the metatarsophalangeal joint using typical technique. Any bleeders were cauterized at this time. There is noted to be significant abscess formation extending down the level of third metatarsal head the third metatarsal head would be resected using a sagittal saw. Additional third metatarsal was resected using a sagittal saw resecting a clean margin this bone was noted to be significantly more intact and less devitalized than the third metatarsal head. This abscess extended into the plantar vault. A second incision was made at the level of the plantar midfoot. This was a 6 cm incision made through the level of epidermis dermis into subcutaneous tissue this was deepened using blunt dissection down the level of the flexor tendon sheaths through the deep fascia. Additional 8 cc abscess drained from the site as well. All devitalized tissue was excised using bone rongeurs from the plantar foot. This included the flexor tendon sheath to the second third and fourth digits along with a large section of the plantar fascia. All diabetic devitalized tissue to the dorsal incision was excised using bone rongeurs as well until bleeding margin was noted. There was some bleeding noted during the exam; however, this was less than optimal. Both the dorsal and plantar incisions were pulse lavaged with low-pressure pulse lavage using copious amounts of normal sterile saline. Additional debridement was performed using sterile different bone rongeurs to the dorsal and plantar foot removing any residual none vitalized tissue. Dorsal and plantar foot incisions were once again flushed with copious amounts normal sterile saline. Post lavage swab cultures were taken at this time. Incisions were dressed to the dorsal and plantar foot they were packed with Betadine soaked 4 x 4's dry 4 x 4's ABD pads Kerlix and a noncompressive Mian bandage applied very lightly. Tourniquet was not used Prelavage swab cultures from the dorsal foot wound of the abscess were taken Left third digit amputation will including third metatarsal head sent for bone culture and pathology Left third ray clean margin sent for pathologic examination Post lavage swab cultures taken sent for microbiology Patient tolerated anesthesia and procedure well in apparent satisfactory condition patient was transferred to PACU vital signs stable vascular status intact all digits patient will be transferred back to floor continue receiving IV antibiotics until final infectious disease recommendations are made. We will consider delayed primary closure pending incisional sites versus wound VAC. I will continue to follow the patient closely until resolution of this infection and wound. Patient will likely require PICC line. No complications Residual tooth tissue appeared devoid of any residual signs of infection. Path and micro specimens taken as listed prior.
[2021-08-03] MEDS: Juven (unflavored) Packet 1 PACKET PO (16:15)
[2021-08-03] MEDS: oxyCODONE 5 MG Tablet PO ×2 (16:20→23:21)
[2021-08-03 16:36] LABS: Bedside Glucose 136 mg/dL (74-106)
[2021-08-03] MEDS: Atorvastatin Calcium 40 MG Tablet PO (20:42)
[2021-08-03] MEDS: amLODIPine 10 MG Tablet PO (20:42)
[2021-08-03] MEDS: Morphine 2 MG/ML Syringe IV (20:42)
[2021-08-03] MEDS: Losartan Potassium 50 MG Tablet PO (20:42)
[2021-08-03] MEDS: traZODone 100 MG Tablet PO (20:42)
[2021-08-03 20:55] LABS: Bedside Glucose 273 mg/dL (74-106)
[2021-08-03] MEDS: Empagliflozin 25 MG Tablet PO (23:21)
[2021-08-04 02:23] VITALS: BP 125/87; PULSE 97; RESP 18; TEMP 36.9; O2SAT 96
[2021-08-04] MEDS: Morphine 2 MG/ML Syringe IV (02:32)
[2021-08-04] MEDS: Gabapentin 800 MG Tablet PO ×3 (06:18→22:14)
[2021-08-04 07:05] LABS: Bedside Glucose 123 mg/dL (74-106)
[2021-08-04 07:24] LABS: Vancomycin, Trough Level 27.6 ug/mL (5.0-15.0)
[2021-08-04 07:35] VITALS: BP 140/79; PULSE 102; RESP 18; TEMP 37.6; O2SAT 95
--- NOTE | 2021-08-04 07:35 | PCM.PROGNOTE ---
Subjective Subjective This 60-year male seen day 1 postop from left open partial third ray resection incision and drainage of abscess left foot. Patient denies any fever chills nausea vomiting chest pain calf pain shortness of breath at this time. Patient noted some pain overnight received IV morphine has some numbness limited to his left hand. Pain well controlled at this time, pain worse with dependency. Patient voiding urine and passing gas. Objective Data Objective Data Vital Signs: Vital Signs Temp Pulse Resp BP Pulse Ox 98.5 F 97 18 125/87 H 96 08/04/21 02:23 08/04/21 02:23 08/04/21 02:23 08/04/21 02:23 08/04/21 02:23 Oxygen Delivery Method Room Air Weight: 75.75 kg Body Mass Index (BMI) 23.6 Intake & Output: Intake and Output for Last 24 Hours 08/02/21 08/03/21 08/04/21 23:59 23:59 23:59 Intake Total 2214.08 / 2214.08 2207.25 / 2807.25 1725 / 1725 Output Total 1600 / 1600 Balance 2214.08 / 2214.08 2207.25 / 1907.25 125 / 125 Lab / Micro Data Result Diagrams: 08/03/21 05:29 08/03/21 05:29 Labs: Laboratory Results - last 24 hr 08/03/21 13:24: POC Glucose 159 H 08/03/21 16:26: POC Glucose 136 H 08/03/21 20:48: POC Glucose 273 H 08/04/21 06:25: POC Glucose 123 H 08/04/21 06:34: Vancomycin Trough 27.6 H Micro: Microbiology 08/01/21 13:45 Wound Abcess - No Site/Description Given Gram Stain - Final 08/01/21 13:45 Wound Abcess - No Site/Description Given Wound Culture - Preliminary Gram negative usman GNR lactose personal carer Presumptive C albicans GPC Poss Enterococcus sp Radiography Diagnostic Testing: Radiology Impression Toe X-Ray 08/03/21 14:15 IMPRESSION: Fluoroscopic assistance images were obtained. Dictation for documentation purposes only. Electronically Signed: Lauro Green MD at 16:02 EDT , Physical Exam Narrative Neurovascular status unchanged from previous evaluation Full-thickness incision noted to the dorsal forefoot at the level of the third ray with exposed third metatarsal, full-thickness incision noted to plantar midfoot extending down the level of flexor tendon sheath. There is noted to be significantly improved edema erythema and warmth at this time. No residual purulent drainage or malodor at this time. No evidence of residual abscess at this time. No pain with calf squeeze to bilateral lower extremity. No residual fluctuance crepitus noted to bilateral lower extremity compartments. Assessment & Plan Assessment/Plan (1) Peripheral vascular disease, unspecified: (2) Abscess of left foot: (3) Osteomyelitis of foot, left, acute: (4) Non-pressure chronic ulcer of other part of left foot with necrosis of bone: PLAN: Patient examined evaluated, all findings reyes with patient in detail. Patient underwent open partial third ray resection and incision drainage abscess left foot on 08/03/2021. Residual tissue appears devoid of any residual abscess. Mild erythema limited to the periwound areas and left fourth digit. Wounds were flushed with copious amounts of normal sterile saline, redressed incisional sites with Betadine soaked gauze 4 x 4's Kerlix and a noncompressive Mian bandage. This was applied extremely lightly due to severe peripheral arterial disease. Intraoperatively bone and soft tissue cultures were taken, initial wound cultures demonstrated staph aureus Enterobacter cloacae I Enterococcus faecalis Staphylococcus saprophyticus. Patient receiving IV vancomycin and Zosyn. Infectious disease following patient. Patient vitally stable, no leukocytosis, CRP reordered. I recommended heel offloading with a Prevalon boot to prevent any pressure injury to the heel due to severe peripheral arterial disease. Plan will likely be for wound VAC application to the left forefoot as there is a large soft tissue void that we will need to fill in after abscess decompression and ray resection. We will consider delayed primary closure of the plantar midfoot incision likely on Saturday. We will consider doing this bedside as patient cannot tolerate any MAC or general anesthesia due to need for coronary artery bypass. At this time I feel that the infection is improving well status post I&D with 3rd ray resection. Patient will remain nonweightbearing to left lower extremity. We will continue to follow the patient closely.
[2021-08-04 07:45] LABS: Absolute Neutrophil Count 8.9 X10^3/uL (2.0-7.7); Basophil# 0.04 X10^3/uL; Basophil% 0.3 % (0-1); Eosinophil# 0.15 X10^3/uL; Eosinophils% 1.3 % (0-5); Hematocrit 32.5 % (40-54); Hemoglobin 10.3 g/dL (13.0-16.5); Lymphocyte % 15.4 % (19-41); Mean Corp Hgb Conc 31.7 g/dL (32-36); Mean Corpuscular Hgb 29.9 pg (27.0-32.0); Mean Corpuscular Volume 94.2 fL (80-94); Mean Platelet Vol. 8.9 fl (6.2-12.0); Monocyte# 0.79 X10^3/uL; Monocyte% 6.7 % (0-10); NRBC Flagged by Analyzer 0 % (0-5); Platelet Count 344 K/mm3 (150-450); RBC Distribution Width CV 12.2 % (11.6-14.6); RBC Distribution Width SD 42.3 fl (35.1-43.9); Red Blood Count 3.45 M/mm3 (4.6-6.2); White Blood Count 11.7 K/mm3 (4.4-11.0)
[2021-08-04 07:55] LABS: Anion Gap 7 (5-15); BUN 17 mg/dL (7-18); BUN/Creat Ratio 18.2 RATIO (10-20); Calcium,Total 8.6 mg/dL (8.5-10.1); Chloride 102 mmol/L (98-107); Creatinine, Serum 0.94 mg/dL (0.70-1.30); EST Glomerular Filtration Rate 88 mL/min (>60); Est Glom Filt Rate - Afr Amer 106 mL/min (>60); Estimated Creatinine Clearance 91.23 ml/min; Glucose 117 mg/dL (74-106); Potassium 3.7 mmol/L (3.5-5.1); Sodium Level 135 mmol/L (136-145)
[2021-08-04] MEDS: metFORMIN HCl 1,000 MG Tablet 1000 MG PO ×2 (08:33→17:29)
--- NOTE | 2021-08-04 09:45 | CASEMGMT ---
Addendum entered by Yi Hudson 08/04/21 16:11: JOE CASTILLO in to pt room. Discussed that pt will need HHC with the addition of the wound vac. Pt states he cannot make the decision of agency by himself. His is not feeling well. He will talk to her and have 3 agencies picked for tomorrow. Asked JOE CASTILLO to check in on choices at that time. Faxed referral to [facility] to get started working on it. Addendum entered by Yi Hudson 08/04/21 14:52: Received returned tc from Dr. Negron, plan for wound vac on Saturday. Pt will need HHC for IV atb and wound vac. JOE CASTILLO to meet with pt for HHC choices. Cancelled with infusion center. Addendum entered by Yi Hudson 08/04/21 14:37: Received notification from that pt will need 2 IV atb and would like to go to the infusion center daily for this. Pt will be receiving picc line. TC to Infusion Center, spoke with Joie, will fax orders. Noted that pt may potentially have wound vac and be non wt bearing as well. Message sent to , no answer. Paged to clarify if pt will stay over w/e. If pt needs wound vac, will need to consider HHC. Original Note: JOE CASTILLO in to pt room to discuss dc planning. Pt states he only wants HHC if he needs IV atb at home. States he does not really want to do this. States his does dressing changes and will continue. He will make a decision once ID sees him today. JOE CASTILLO to check back.
--- NOTE | 2021-08-04 10:03 | PN.HOSP_ITS ---
Subjective Subjective Patient seen and examined. He had surgery yesterday and feels well today. He has no active complaints. He is requesting for his metformin to be restarted. Patient has a fever of 99.7 Fahrenheit today and pulse rate of 102. Review of systems otherwise negative. Objective Data Objective Data Vital Signs: Vital Signs Temp Pulse Resp BP Pulse Ox 99.7 F H 102 H 18 140/79 H 95 08/04/21 07:35 08/04/21 07:35 08/04/21 07:35 08/04/21 07:35 08/04/21 07:35 Oxygen Delivery Method Room Air Weight: 167 lb Body Mass Index (BMI) 23.6 Intake & Output: Intake and Output for Last 24 Hours 08/02/21 08/03/21 08/04/21 23:59 23:59 23:59 Intake Total 2214.08 / 2214.08 2207.25 / 2807.25 1867.68 / 1867.68 Output Total 1600 / 1600 Balance 2214.08 / 2214.08 2207.25 / 1907.25 267.68 / 267.68 Lab / Micro Data Result Diagrams: 08/04/21 06:34 08/04/21 06:34 Labs: Laboratory Results - last 24 hr 08/03/21 13:24: POC Glucose 159 H 08/03/21 16:26: POC Glucose 136 H 08/03/21 20:48: POC Glucose 273 H 08/04/21 06:25: POC Glucose 123 H 08/04/21 06:34: Vancomycin Trough 27.6 H 08/04/21 06:34: WBC 11.7 H, RBC 3.45 L, Hgb 10.3 L, Hct 32.5 L, MCV 94.2 H, MCH 29.9, MCHC 31.7 L D, RDW Std Deviation 42.3, RDW Coeff of Imtiaz 12.2, Plt Count 344, MPV 8.9, Immature Gran % (Auto) 0.300, Neut % (Auto) 76.0 H, Lymph % (Auto) 15.4 L, [place] % (Auto) 6.7, Eos % (Auto) 1.3, Baso % (Auto) 0.3, Absolute Neuts (auto) 8.9 H, Absolute Lymphs (auto) 1.80, Nucleated RBC % 0 08/04/21 06:34: Sodium 135 L, Potassium 3.7, Chloride 102, Carbon Dioxide 26.0, Anion Gap 7, BUN 17, Creatinine 0.94, Estim Creat Clear Calc 91.23, Est GFR (MDRD) Af Amer 106, Est GFR (MDRD) Non-Af 88, BUN/Creatinine Ratio 18.2, Glucose 117 H, Calcium 8.6 08/04/21 06:34: C-React Prot Ext Range 182.00 H Micro: Microbiology 08/01/21 13:45 Wound Abcess - No Site/Description Given Gram Stain - Final 08/01/21 13:45 Wound Abcess - No Site/Description Given Wound Culture - Final Escherichia coli Enterobacter cloacae complex Presumptive C albicans Enterococcus faecalis Radiography Diagnostic Testing: Radiology Impression Toe X-Ray 08/03/21 14:15 IMPRESSION: Fluoroscopic assistance images were obtained. Dictation for documentation purposes only. Electronically Signed: Lauro Green MD at 16:02 EDT Reading Location ID and State: [facility] [place] / [place] , Service support , Physical Exam Const alert, oriented x3 and no apparent distress Exam Limitations: no limitations HEENT head/scalp atraumatic and moist oral mucous membranes Head and Scalp: normocephalic Eyes PERRL, EOMs intact bilaterally and conjunctivae normal Neck no lymphadenopathy and supple Resp normal respiratory effort, no retractions, no use of accessory muscles and clear to auscultation bilaterally Cardio regular rate, regular rhythm, S1 normal heart sound, S2 normal heart sound and no murmurs GI normal to inspection, nondistended, normoactive bowel sounds, soft to palpation, non-tender and non-distended Extremity Extremity Narrative: left foot wrapped foot wrapped in bandage. Peripheral Pulses: Yes pulses 2+ throughout Skin Skin Narrative: as under extremities. Neuro oriented x3, CN's II-XII intact bilaterally and moves all extremities Sensorium / Orientation: awake and alert Psych affect normal Assessment & Plan Assessment/Plan (1) Abscess of left foot: (2) Osteomyelitis of foot, left, acute: PLAN: #Left diabetic foot infection * s/p left partial third ray resection * on IV vancomycin and zosyn. * left foot wrapped in bandage. * podiatry on board. * MRI of the foot showed septic arthritis of the third metatarsophalangeal joint with osteomyelitis of the head of the third metatarsal and third proximal phalanx with phlegmon extending proximally and probably through the flexor tendons and distal plantar fascia into the superficial subcutaneous fat * ID on board. * PT.OT on board. Fall precutions. * wound cultures growing E coli, Enterbacter, Enterococcus and C albicans. * wound cultures from surgery pending * #CAD * had cardiac cath on 07/31/2021 which showed triple vessel disease with reduced LV systolic function; she was to be referred to CT surgery per cardiology. * on aspirin, plavix, statin and losartan. * * #Diabetes mellitus with peripheral neuropathy * on gabapentin * on ISS. Accuchecks ACHS * A1C pending * on metformin, glipizide and Jardiance * #Hypertension; on amlodipine, olmesartan. IV hydralazine prn #Hyperlipidemia: on statin #Chronic COPD: on breathing treatment with bronchodilators. #ANemia * Hb is 10.8. Was 12.7 on admission. Will monitor. * DVT prophylaxis; SCDs. Charges/Coding Visit Charges Inpatient E&M: 32046 Subs Hosp L2
--- NOTE | 2021-08-04 10:15 | PCM.RX.CS ---
Consult Pharmacy has been consulted to manage selected antiobiotic: Vancomycin Type of Consult: Follow-up Suspected Infection: Other Labs: Sodium 135 mmol/L (136-145) L 08/04/21 06:34 Potassium 3.7 mmol/L (3.5-5.1) 08/04/21 06:34 Chloride 102 mmol/L (98-107) 08/04/21 06:34 Carbon Dioxide 26.0 mmol/L (21.0-32.0) 08/04/21 06:34 Anion Gap 7 (5-15) 08/04/21 06:34 BUN 17 mg/dL (7-18) 08/04/21 06:34 Creatinine 0.94 mg/dL (0.70-1.30) 08/04/21 06:34 Est GFR (MDRD) Af Amer 106 mL/min (>60) 08/04/21 06:34 Est GFR (MDRD) Non-Af 88 mL/min (>60) 08/04/21 06:34 BUN/Creatinine Ratio 18.2 RATIO (10-20) 08/04/21 06:34 Glucose 117 mg/dL (74-106) H 08/04/21 06:34 Vancomycin Trough 27.6 ug/mL (5.0-15.0) H 08/04/21 06:34 Microbiology: Microbiology 08/01/21 13:45 Wound Abcess - No Site/Description Given Gram Stain - Final 08/01/21 13:45 Wound Abcess - No Site/Description Given Wound Culture - Final Escherichia coli Enterobacter cloacae complex Presumptive C albicans Enterococcus faecalis Goal Trough: 15-20 mcg/mL Pharmacy Plan for Drug Dosing: Received Vancomycin trough 27.6. This is higher than goal. Discontinued order for Vancomycin 1250 mg IV 8H. Vancomycin random level ordered for 08/05/21 at 0600 to reevaluate dosing for wound/foot. Pharmacy Service will continue to monitor and adjust dosing as required.
[2021-08-04 13:48] VITALS: O2SAT 95
--- NOTE | 2021-08-04 14:37 | PN.ID_ITS ---
Physical Exam Narrative Feeling ok, no fever, no n/v/d. Const alert and no apparent distress General Appearance: cooperative Resp normal air movement and clear to auscultation bilaterally Cardio regular rate and regular rhythm GI soft to palpation, non-tender and non-distended Skin Skin Narrative: foot wrapped ID ID: Route of nutrition/ use of supplements: [] Nutritional Intake: [] IV Site: [] Johnson Catheter: [] Assessment & Plan Assessment/Plan (1) Osteomyelitis of foot, left, acute: PLAN: Wound cx with ecoli, enterobacter, rare mal, and enterococcus here. Polymicrobrial growth seen recently, including MSSA, enterobacter, CoNS, enterococcus. On vanc/zosyn, taken to OR 08/03 for toe amputation. Clearance cx already growing GNR. Discussed options with him, he does not want home iv abx. Agrees to picc with once daily dapto and erta at infusion center. Stop date 09/14/21, weekly labs, ID followup in 2 weeks. Wrote rx, d/w human services case manager. Will follow
[2021-08-04 14:52] VITALS: BP 101/64; PULSE 82; RESP 18; TEMP 36.9; O2SAT 94
[2021-08-04] MEDS: oxyCODONE 5 MG Tablet PO ×2 (14:58→22:14)
--- NOTE | 2021-08-04 17:00 | RAD_ITS ---
STUDY: AP PORTABLE ARNALDO-IERECT CHEST OF 1653 HOURS AND 08/04/2021 REASON FOR EXAM: 60 Year-old male for PICC line placement. TECHNIQUE: A single view portable AP semi-erect chest was performed per protocol. COMPARISON: 07/26/2021. FINDINGS: Distal tip of right-sided PICC line is in the distal superior vena cava. Lordotic view. No cardiomegaly. Mild interstitial fibrotic changes in both lower lobes. No confluent infiltrates, atelectasis, effusion, or pulmonary mass lesions. RAD/CXR for Line Placement IMPRESSION: 1. Right-sided PICC line with its distal tip in the distal superior vena cava. 2. Mild interstitial fibrotic changes in both lower lobes. 3. No other evidence of active cardiopulmonary disease. 4. Lordotic view. Electronically Signed: Quentin Silver MD at 17:14 EDT ,
[2021-08-04] MEDS: Losartan Potassium 50 MG Tablet PO (22:09)
[2021-08-04] MEDS: traZODone 100 MG Tablet PO (22:09)
[2021-08-04] MEDS: Atorvastatin Calcium 40 MG Tablet PO (22:09)
[2021-08-04] MEDS: amLODIPine 10 MG Tablet PO (22:10)
[2021-08-04] MEDS: Empagliflozin 25 MG Tablet PO (22:11)
[2021-08-04 22:23] VITALS: BP 125/80; PULSE 89; RESP 16; TEMP 36.8; O2SAT 94
[2021-08-05] MEDS: Gabapentin 800 MG Tablet PO ×3 (06:19→22:44)
[2021-08-05] MEDS: oxyCODONE 5 MG Tablet PO ×3 (06:19→20:02)
[2021-08-05 06:22] VITALS: BP 158/88; PULSE 95; RESP 16; TEMP 36.6; O2SAT 96
--- NOTE | 2021-08-05 07:44 | PN_ITS ---
Subjective Subjective This 60-year male seen day #2 postop from left open partial third ray resection incision and drainage of abscess left foot. Patient denies any fever, chills, nausea, vomiting, chest pain, calf pain, or shortness of breath at this time. His pain is controlled. He relates he had to place a little bit of pressure on him to use a restroom last night. His case is complicated with peripheral vascular disease and diabetes. Objective Data Objective Data Vital Signs: Vital Signs Temp Pulse Resp BP Pulse Ox 98 F 95 16 158/88 H 96 08/05/21 06:22 08/05/21 06:22 08/05/21 06:22 08/05/21 06:22 08/05/21 06:22 Oxygen Delivery Method Room Air Weight: 75.75 kg Body Mass Index (BMI) 23.6 Intake & Output: Intake and Output for Last 24 Hours 08/03/21 08/04/21 08/05/21 23:59 23:59 23:59 Intake Total 2207.25 / 2807.25 2235.43 / 2235.43 Output Total 1600 / 1600 Balance 2207.25 / 1907.25 635.43 / 635.43 Lab / Micro Data Result Diagrams: 08/05/21 08:00 08/04/21 06:34 Labs: Laboratory Results - last 24 hr 08/04/21 06:34: WBC 11.7 H, RBC 3.45 L, Hgb 10.3 L, Hct 32.5 L, MCV 94.2 H, MCH 29.9, MCHC 31.7 L D, RDW Std Deviation 42.3, RDW Coeff of Imtiaz 12.2, Plt Count 344, MPV 8.9, Immature Gran % (Auto) 0.300, Neut % (Auto) 76.0 H, Lymph % (Auto) 15.4 L, [place] % (Auto) 6.7, Eos % (Auto) 1.3, Baso % (Auto) 0.3, Absolute Neuts (auto) 8.9 H, Absolute Lymphs (auto) 1.80, Nucleated RBC % 0 08/04/21 06:34: Sodium 135 L, Potassium 3.7, Chloride 102, Carbon Dioxide 26.0, Anion Gap 7, BUN 17, Creatinine 0.94, Estim Creat Clear Calc 91.23, Est GFR (MDRD) Af Amer 106, Est GFR (MDRD) Non-Af 88, BUN/Creatinine Ratio 18.2, Glucose 117 H, Calcium 8.6 08/04/21 06:34: C-React Prot Ext Range 182.00 H Micro: Microbiology 08/05/21 02:43 Stool C. difficile DNA Amplification - Final 08/01/21 13:45 Wound Abcess - No Site/Description Given Gram Stain - Final 08/01/21 13:45 Wound Abcess - No Site/Description Given Wound Culture - Final Escherichia coli Enterobacter cloacae complex Presumptive C albicans Enterococcus faecalis 08/01/21 13:45 Wound Abcess - No Site/Description Given Anaerobic Culture - Preliminary 08/03/21 Unknown Bone - Toe Gram Stain - Final 08/03/21 Unknown Bone - Toe Wound Culture - Preliminary GNR lactose stained glass installer 08/03/21 Unknown Bone - Toe Gram Stain - Final 08/03/21 Unknown Bone - Toe Wound Culture - Preliminary GNR lactose stained glass installer Radiography Diagnostic Testing: Radiology Impression Chest X-Ray 08/04/21 17:00 IMPRESSION: 1. Right-sided PICC line with its distal tip in the distal superior vena cava. 2. Mild interstitial fibrotic changes in both lower lobes. 3. No other evidence of active cardiopulmonary disease. 4. Lordotic view. Electronically Signed: Quentin Silver MD at 17:14 EDT , Physical Exam Narrative Foot warm to touch. His skin is atrophic and hairless. Epicritic sensation is hypersensitive with light touch. Full-thickness incision noted to the dorsal forefoot at the level of the third ray with exposed third metatarsal, full-thickness incision noted to plantar midfoot extending down the level of flexor tendon sheath. There is minimal edema and no erythema or warmth at this time. No residual purulent drainage or malodor at this time. No evidence of residual abscess at this time. There is some skin peeling to the peripheral aspect of the plantar incision and drainage site with some ecchymotic change locally only. There is no bogginess or fluctuance on palpation the compartments of the left foot remain soft to palpate. No pain with calf squeeze to bilateral lower extremity. Assessment & Plan Assessment/Plan (1) Peripheral vascular disease, unspecified: (2) Abscess of left foot: (3) Osteomyelitis of foot, left, acute: (4) Non-pressure chronic ulcer of other part of left foot with necrosis of bone: PLAN: Patient examined evaluated, all findings were discussed with patient in detail. His vitals are stable and he is afebrile. His last temperature elevation was yesterday morning at 102. His white blood cell count was 10.7 this morning. Patient underwent open partial third ray resection and incision drainage abscess left foot on 08/03/2021. Residual tissue appears devoid of any residual abscess. Erythema has resolved and the fourth toe appears viable. There is no purulence or luis necrosis noted at the surgical site. Noted wound culture with ecoli, enterobacter, rare mal, and enterococcus here. Polymicrobrial growth seen recently, including MSSA, enterobacter, CoNS, enterococcus. He is on IV vanc/zosyn. Clearance mirro culture growing GNR. PICC planned with dapto and erta with stop date 09/14/21. Infectious diseases on consult greatly appreciated. He will follow-up in [address] Li. The wounds were redressed incisional sites with Betadine soaked gauze 4 x 4's Kerlix and a noncompressive Mian bandage. This was applied extremely lightly due to severe peripheral arterial disease. To continue heel offloading with a Prevalon boot to prevent any pressure injury to the heel due to severe peripheral arterial disease. Patient will remain nonweightbearing to left lower extremity. Plan will likely be for wound VAC application to the left forefoot as there is a large soft tissue void that we will need to fill in after abscess decompression and ray resection. This will be considered after serial dressing changes this weekend for application potentially on Saturday. We will also consider delayed primary closure of the plantar midfoot incision likely on Saturday. We will consider doing this bedside as patient cannot tolerate any MAC or general ane sthesia due to need for coronary artery bypass. This is a limb salvage case and he is considered stable at this time. We will continue to follow the patient closely. Please do not hesitate to call if you have any questions. Luna Negron DPM, [facility] [phone]
[2021-08-05 08:11] LABS: Absolute Lymphocyte Count 1.48 X10^3/uL (0.83-4.51); Absolute Neutrophil Count 8.2 X10^3/uL (2.0-7.7); Basophil# 0.04 X10^3/uL; Basophil% 0.4 % (0-1); Eosinophil# 0.22 X10^3/uL; Eosinophils% 2.1 % (0-5); Hemoglobin 10.5 g/dL (13.0-16.5); Lymphocyte # 1.48 X10^3/ul (0.83-4.51); Lymphocyte % 13.8 % (19-41); Mean Corp Hgb Conc 32.8 g/dL (32-36); Mean Corpuscular Hgb 30.5 pg (27.0-32.0); Mean Platelet Vol. 8.9 fl (6.2-12.0); Monocyte# 0.76 X10^3/uL; Monocyte% 7.1 % (0-10); NRBC Flagged by Analyzer 0 % (0-5); Neutrophil # 8.19 X10^3/uL (2.7-7.7); Neutrophil % 76.2 % (47-70); Platelet Count 350 K/mm3 (150-450); RBC Distribution Width CV 12.2 % (11.6-14.6); RBC Distribution Width SD 41.2 fl (35.1-43.9); Red Blood Count 3.44 M/mm3 (4.6-6.2); White Blood Count 10.7 K/mm3 (4.4-11.0)
[2021-08-05 08:17] VITALS: O2SAT 95
[2021-08-05 08:33] LABS: Anion Gap 6 (5-15); BUN 19 mg/dL (7-18); BUN/Creat Ratio 23.6 RATIO (10-20); Calcium,Total 9.1 mg/dL (8.5-10.1); Chloride 106 mmol/L (98-107); Creatinine, Serum 0.81 mg/dL (0.70-1.30); EST Glomerular Filtration Rate 104 mL/min (>60); Est Glom Filt Rate - Afr Amer 126 mL/min (>60); Estimated Creatinine Clearance 105.87 ml/min; Glucose 139 mg/dL (74-106); Potassium 3.7 mmol/L (3.5-5.1); Sodium Level 137 mmol/L (136-145)
[2021-08-05 08:54] VITALS: BP 131/84; PULSE 92; RESP 20; TEMP 37.1; O2SAT 97
[2021-08-05] MEDS: metFORMIN HCl 1,000 MG Tablet 1000 MG PO ×2 (08:57→18:13)
[2021-08-05] MEDS: Loperamide 2 MG Capsule PO ×3 (09:00→22:50)
--- NOTE | 2021-08-05 09:51 | PN.HOSP_ITS ---
Subjective Subjective Patient seen and examined. He feels well this morning and has no active complaints. He had an uneventful night and review of systems is otherwise negative. He is due for a wound vac placement on Saturday. Objective Data Objective Data Vital Signs: Vital Signs Temp Pulse Resp BP Pulse Ox 98.8 F 92 20 H 131/84 H 97 08/05/21 08:54 08/05/21 08:54 08/05/21 08:54 08/05/21 08:54 08/05/21 08:54 Oxygen Delivery Method Room Air Weight: 167 lb Body Mass Index (BMI) 23.6 Intake & Output: Intake and Output for Last 24 Hours 08/03/21 08/04/21 08/05/21 23:59 23:59 23:59 Intake Total 2207.25 / 2807.25 2235.43 / 2235.43 Output Total 1600 / 1600 Balance 2207.25 / 1907.25 635.43 / 635.43 Lab / Micro Data Result Diagrams: 08/05/21 08:00 08/05/21 08:00 Labs: Laboratory Results - last 24 hr 08/05/21 08:00: WBC 10.7, RBC 3.44 L, Hgb 10.5 L, Hct 32.0 L, MCV 93.0, MCH 30.5, MCHC 32.8, RDW Std Deviation 41.2, RDW Coeff of Imtiaz 12.2, Plt Count 350, MPV 8.9, Immature Gran % (Auto) 0.400, Neut % (Auto) 76.2 H, Lymph % (Auto) 13.8 L, [place] % (Auto) 7.1, Eos % (Auto) 2.1, Baso % (Auto) 0.4, Absolute Neuts (auto) 8.2 H, Absolute Lymphs (auto) 1.48, Nucleated RBC % 0 08/05/21 08:00: Sodium 137, Potassium 3.7, Chloride 106, Carbon Dioxide 25.0, Anion Gap 6, BUN 19 H, Creatinine 0.81, Estim Creat Clear Calc 105.87, Est GFR (MDRD) Af Amer 126, Est GFR (MDRD) Non-Af 104, BUN/Creatinine Ratio 23.6 H, Glucose 139 H, Calcium 9.1 Micro: Microbiology 08/03/21 Unknown Bone - Toe Gram Stain - Final 08/03/21 Unknown Bone - Toe Wound Culture - Preliminary Escherichia coli 08/03/21 Unknown Bone - Toe Gram Stain - Final 08/03/21 Unknown Bone - Toe Wound Culture - Final Escherichia coli 08/05/21 02:43 Stool C. difficile DNA Amplification - Final 08/01/21 13:45 Wound Abcess - No Site/Description Given Gram Stain - Final 08/01/21 13:45 Wound Abcess - No Site/Description Given Wound Culture - Final Escherichia coli Enterobacter cloacae complex Presumptive C albicans Enterococcus faecalis 08/01/21 13:45 Wound Abcess - No Site/Description Given Anaerobic Culture - Preliminary Radiography Diagnostic Testing: Radiology Impression Chest X-Ray 08/04/21 17:00 IMPRESSION: 1. Right-sided PICC line with its distal tip in the distal superior vena cava. 2. Mild interstitial fibrotic changes in both lower lobes. 3. No other evidence of active cardiopulmonary disease. 4. Lordotic view. Electronically Signed: Quentin Silver MD at 17:14 EDT , Physical Exam Const alert, oriented x3 and no apparent distress Exam Limitations: no limitations HEENT head/scalp atraumatic and moist oral mucous membranes Head and Scalp: normocephalic Eyes PERRL, EOMs intact bilaterally and conjunctivae normal Neck no lymphadenopathy and supple Resp normal respiratory effort, no retractions, no use of accessory muscles and clear to auscultation bilaterally Cardio regular rate, regular rhythm, S1 normal heart sound, S2 normal heart sound and no murmurs GI normal to inspection, nondistended, normoactive bowel sounds, soft to palpation, non-tender and non-distended Extremity Extremity Narrative: left foot wrapped foot wrapped in bandage. Peripheral Pulses: Yes pulses 2+ throughout Skin Skin Narrative: as under extremities. Neuro oriented x3, CN's II-XII intact bilaterally and moves all extremities Sensorium / Orientation: awake and alert Psych affect normal Assessment & Plan Assessment/Plan (1) Abscess of left foot: (2) Osteomyelitis of foot, left, acute: PLAN: #Left diabetic foot infection * s/p left partial third ray resection * on IV vancomycin and zosyn. * left foot wrapped in bandage. * podiatry on board. * MRI of the foot showed septic arthritis of the third metatarsophalangeal joint with osteomyelitis of the head of the third metatarsal and third proximal phalanx with phlegmon extending proximally and probably through the flexor tendons and distal plantar fascia into the superficial subcutaneous fat * ID on board. * PT.OT on board. Fall precautions. * wound cultures growing E coli, Enterobacter, Enterococcus and C albicans. * wound cultures from surgery pending * for wound vac placement on Saturday. * has had PICC line inserted; for daptomycin and ertapenem IV daily till 09/14/2021, per ID. * #CAD * had cardiac cath on 07/31/2021 which showed triple vessel disease with reduced LV systolic function; she was to be referred to CT surgery per cardiology. * on aspirin, plavix, statin and losartan. * * #Diabetes mellitus with peripheral neuropathy * on gabapentin * on ISS. Accuchecks ACHS * A1C pending * on metformin, glipizide and Jardiance * #Hypertension; on amlodipine, olmesartan. IV hydralazine prn #Hyperlipidemia: on statin #Chronic COPD: on breathing treatment with bronchodilators. #ANemia * Hb is 10.5 today. Was 12.7 on admission. Will monitor. * DVT prophylaxis; SCDs. Disposition: for DC home after wound vac is placed on Saturday Charges/Coding Visit Charges Inpatient E&M: 10819 Subs Hosp L2
[2021-08-05] MEDS: 0.9% Saline Lock 10 ML Syringe IV (12:18)
--- NOTE | 2021-08-05 17:28 | CASEMGMT ---
JOE CASTILLO NOTE: Spoke w/pt re: HHC and inquired what his top 3 choices of [facility] agencies are. Pt voiced concern re: [id number] cost of IV atb's and states is interested in going to OP infusion center for IV infusions and to the wound center 3 x's/week for wound vac changes. JOE CASTILLO informed pt that wound vac dressing changes are not able to be done @ the wound center that frequently. He states he would like a shipman check done on cost of IV atb's before making any decisions. Pt made aware this can be done on Saturday and JOE CASTILLO will f/u with him Saturday. He voices appreciation. Evelyn COLON RN, CM
[2021-08-05 17:30] VITALS: BP 108/72; PULSE 97; RESP 18; TEMP 36.3; O2SAT 96
[2021-08-05 22:43] VITALS: BP 121/68; PULSE 84; RESP 18; TEMP 36.6; O2SAT 92
[2021-08-05] MEDS: amLODIPine 10 MG Tablet PO (22:44)
[2021-08-05] MEDS: traZODone 100 MG Tablet PO (22:44)
[2021-08-05] MEDS: Atorvastatin Calcium 40 MG Tablet PO (22:44)
[2021-08-05] MEDS: Empagliflozin 25 MG Tablet PO (22:44)
[2021-08-05] MEDS: Losartan Potassium 50 MG Tablet PO (22:45)
[2021-08-06 05:19] VITALS: BP 123/74; PULSE 86; RESP 18; TEMP 36.8; O2SAT 97
[2021-08-06 05:20] VITALS: O2SAT 97
--- NOTE | 2021-08-06 05:29 | NURSING ---
refusing all AM meds at this time. states 'will take later education provided about timeliness and effectiveness of taking medications, pt still wants to wait until I am more awake
[2021-08-06 06:38] LABS: Absolute Lymphocyte Count 1.47 X10^3/uL (0.83-4.51); Absolute Neutrophil Count 7.7 X10^3/uL (2.0-7.7); Basophil# 0.03 X10^3/uL; Basophil% 0.3 % (0-1); Eosinophil# 0.33 X10^3/uL; Eosinophils% 3.3 % (0-5); Hematocrit 30.9 % (40-54); Hemoglobin 9.8 g/dL (13.0-16.5); Lymphocyte # 1.47 X10^3/ul (0.83-4.51); Lymphocyte % 14.5 % (19-41); Mean Corp Hgb Conc 31.7 g/dL (32-36); Mean Corpuscular Hgb 30.1 pg (27.0-32.0); Mean Corpuscular Volume 94.8 fL (80-94); Mean Platelet Vol. 9.6 fl (6.2-12.0); Monocyte# 0.59 X10^3/uL; Monocyte% 5.8 % (0-10); NRBC Flagged by Analyzer 0 % (0-5); Neutrophil # 7.67 X10^3/uL (2.7-7.7); Neutrophil % 75.8 % (47-70); Platelet Count 393 K/mm3 (150-450); RBC Distribution Width CV 12.3 % (11.6-14.6); RBC Distribution Width SD 43.1 fl (35.1-43.9); Red Blood Count 3.26 M/mm3 (4.6-6.2); White Blood Count 10.1 K/mm3 (4.4-11.0)
[2021-08-06 06:48] LABS: Anion Gap 7 (5-15); BUN 22 mg/dL (7-18); BUN/Creat Ratio 25.9 RATIO (10-20); Calcium,Total 8.8 mg/dL (8.5-10.1); Chloride 107 mmol/L (98-107); Creatinine, Serum 0.85 mg/dL (0.70-1.30); EST Glomerular Filtration Rate 98 mL/min (>60); Est Glom Filt Rate - Afr Amer 119 mL/min (>60); Estimated Creatinine Clearance 100.89 ml/min; Glucose 176 mg/dL (74-106); Potassium 3.6 mmol/L (3.5-5.1); Sodium Level 138 mmol/L (136-145)
--- NOTE | 2021-08-06 07:10 | PN.HOSP_ITS ---
Subjective Subjective Patient seen and examined. He has no complaints and had an unventful night. Review of systems otherwise negative. He has remained hemodynamically stable Objective Data Objective Data Vital Signs: Vital Signs Temp Pulse Resp BP Pulse Ox 98.2 F 86 18 123/74 H 97 08/06/21 05:19 08/06/21 05:19 08/06/21 05:19 08/06/21 05:19 08/06/21 05:20 Oxygen Delivery Method Room Air Weight: 378 lb 12.066 oz Body Mass Index (BMI) 23.6 Intake & Output: Intake and Output for Last 24 Hours 08/04/21 08/05/21 08/06/21 23:59 23:59 23:59 Intake Total 2235.43 / 2235.43 817.00 / 817.00 Output Total 1600 / 1600 400 / 400 Balance 635.43 / 635.43 417.00 / 417.00 Lab / Micro Data Result Diagrams: 08/06/21 05:48 08/06/21 05:48 Labs: Laboratory Results - last 24 hr 08/05/21 08:00: WBC 10.7, RBC 3.44 L, Hgb 10.5 L, Hct 32.0 L, MCV 93.0, MCH 30.5, MCHC 32.8, RDW Std Deviation 41.2, RDW Coeff of Imtiaz 12.2, Plt Count 350, MPV 8.9, Immature Gran % (Auto) 0.400, Neut % (Auto) 76.2 H, Lymph % (Auto) 13.8 L, [place] % (Auto) 7.1, Eos % (Auto) 2.1, Baso % (Auto) 0.4, Absolute Neuts (auto) 8.2 H, Absolute Lymphs (auto) 1.48, Nucleated RBC % 0 08/05/21 08:00: Sodium 137, Potassium 3.7, Chloride 106, Carbon Dioxide 25.0, Anion Gap 6, BUN 19 H, Creatinine 0.81, Estim Creat Clear Calc 105.87, Est GFR (MDRD) Af Amer 126, Est GFR (MDRD) Non-Af 104, BUN/Creatinine Ratio 23.6 H, Glucose 139 H, Calcium 9.1 08/06/21 05:48: WBC 10.1, RBC 3.26 L, Hgb 9.8 L, Hct 30.9 L, MCV 94.8 H, MCH 30.1, MCHC 31.7 L, RDW Std Deviation 43.1, RDW Coeff of Imtiaz 12.3, Plt Count 393, MPV 9.6, Immature Gran % (Auto) 0.300, Neut % (Auto) 75.8 H, Lymph % (Auto) 14.5 L, [place] % (Auto) 5.8, Eos % (Auto) 3.3, Baso % (Auto) 0.3, Absolute Neuts (auto) 7.7, Absolute Lymphs (auto) 1.47, Nucleated RBC % 0 08/06/21 05:48: Sodium 138, Potassium 3.6, Chloride 107, Carbon Dioxide 24.0, Anion Gap 7, BUN 22 H, Creatinine 0.85, Estim Creat Clear Calc 100.89, Est GFR (MDRD) Af Amer 119, Est GFR (MDRD) Non-Af 98, BUN/Creatinine Ratio 25.9 H, Glucose 176 H, Calcium 8.8 Micro: Microbiology 08/03/21 Unknown Bone - Toe Gram Stain - Final 08/03/21 Unknown Bone - Toe Wound Culture - Preliminary Escherichia coli 08/03/21 Unknown Bone - Toe Gram Stain - Final 08/03/21 Unknown Bone - Toe Wound Culture - Final Escherichia coli 08/05/21 02:43 Stool C. difficile DNA Amplification - Final 08/01/21 13:45 Wound Abcess - No Site/Description Given Gram Stain - Final 08/01/21 13:45 Wound Abcess - No Site/Description Given Wound Culture - Final Escherichia coli Enterobacter cloacae complex Presumptive C albicans Enterococcus faecalis 08/01/21 13:45 Wound Abcess - No Site/Description Given Anaerobic Culture - Preliminary Physical Exam Const alert, oriented x3 and no apparent distress Exam Limitations: no limitations HEENT head/scalp atraumatic and moist oral mucous membranes Head and Scalp: normocephalic Eyes PERRL, EOMs intact bilaterally and conjunctivae normal Neck no lymphadenopathy and supple Resp normal respiratory effort, no retractions, no use of accessory muscles and clear to auscultation bilaterally Cardio regular rate, regular rhythm, S1 normal heart sound, S2 normal heart sound and no murmurs GI normal to inspection, nondistended, normoactive bowel sounds, soft to palpation, non-tender and non-distended Extremity Extremity Narrative: left foot wrapped foot wrapped in bandage. Peripheral Pulses: Yes pulses 2+ throughout Skin Skin Narrative: as under extremities. Neuro oriented x3, CN's II-XII intact bilaterally and moves all extremities Sensorium / Orientation: awake and alert Psych affect normal Assessment & Plan Assessment/Plan (1) Abscess of left foot: (2) Osteomyelitis of foot, left, acute: PLAN: #Left diabetic foot infection * s/p left partial third ray resection * on IV vancomycin and zosyn. * left foot wrapped in bandage. * podiatry on board. * MRI of the foot showed septic arthritis of the third metatarsophalangeal joint with osteomyelitis of the head of the third metatarsal and third proximal phalanx with phlegmon extending proximally and probably through the flexor tendons and distal plantar fascia into the superficial subcutaneous fat * ID on board. * PT.OT on board. Fall precautions. * wound cultures growing E coli, Enterobacter, Enterococcus and C albicans. * bone cultures from surgery growing E coli * for wound vac placement on Saturday. * has had PICC line inserted; for daptomycin and ertapenem IV daily till 09/14/2021, per ID. * #CAD * had cardiac cath on 07/31/2021 which showed triple vessel disease with reduced LV systolic function; she was to be referred to CT surgery per cardiology. * on aspirin, plavix, statin and losartan. * * #Diabetes mellitus with peripheral neuropathy * on gabapentin * on ISS. Accuchecks ACHS * A1C pending * on metformin, glipizide and Jardiance * #Hypertension; on amlodipine, olmesartan. IV hydralazine prn #Hyperlipidemia: on statin #Chronic COPD: on breathing treatment with bronchodilators. #ANemia * Hb is 10.5 today. Was 12.7 on admission. Will monitor. * DVT prophylaxis; SCDs. Disposition: for DC home after wound vac is placed on Saturday Charges/Coding Visit Charges Inpatient E&M: 85707 Subs Hosp L2
[2021-08-06 07:11] VITALS: O2SAT 95
[2021-08-06] MEDS: metFORMIN HCl 1,000 MG Tablet 1000 MG PO ×2 (08:57→21:02)
[2021-08-06] MEDS: Gabapentin 800 MG Tablet PO ×3 (08:59→21:03)
[2021-08-06] MEDS: Loperamide 2 MG Capsule PO ×4 (08:59→21:06)
[2021-08-06 09:00] VITALS: BP 128/72; PULSE 99; RESP 18; TEMP 36.9; O2SAT 99
--- NOTE | 2021-08-06 11:39 | PN_ITS ---
Subjective Subjective This 60-year male seen day #3 postop from left open partial third ray resection incision and drainage of abscess left foot. Patient denies any fever, chills, nausea, vomiting, chest pain, calf pain, or shortness of breath at this time. His pain is controlled. He wears a surgical shoe for protection. He reports he has some diarrhea since has been on antibiotics. His case is complicated with peripheral vascular disease and diabetes. Objective Data Objective Data Vital Signs: Vital Signs Temp Pulse Resp BP Pulse Ox 98.4 F 99 18 128/72 H 99 08/06/21 09:00 08/06/21 09:00 08/06/21 09:00 08/06/21 09:00 08/06/21 09:00 Oxygen Delivery Method Room Air Weight: 171.8 kg Body Mass Index (BMI) 23.6 Intake & Output: Intake and Output for Last 24 Hours 08/04/21 08/05/21 08/06/21 23:59 23:59 23:59 Intake Total 2235.43 / 2235.43 817.00 / 817.00 Output Total 1600 / 1600 400 / 400 Balance 635.43 / 635.43 417.00 / 417.00 Lab / Micro Data Result Diagrams: 08/06/21 05:48 08/06/21 05:48 Labs: Laboratory Results - last 24 hr 08/06/21 05:48: WBC 10.1, RBC 3.26 L, Hgb 9.8 L, Hct 30.9 L, MCV 94.8 H, MCH 30.1, MCHC 31.7 L, RDW Std Deviation 43.1, RDW Coeff of Imtiaz 12.3, Plt Count 393, MPV 9.6, Immature Gran % (Auto) 0.300, Neut % (Auto) 75.8 H, Lymph % (Auto) 14.5 L, [place] % (Auto) 5.8, Eos % (Auto) 3.3, Baso % (Auto) 0.3, Absolute Neuts (auto) 7.7, Absolute Lymphs (auto) 1.47, Nucleated RBC % 0 08/06/21 05:48: Sodium 138, Potassium 3.6, Chloride 107, Carbon Dioxide 24.0, Anion Gap 7, BUN 22 H, Creatinine 0.85, Estim Creat Clear Calc 100.89, Est GFR (MDRD) Af Amer 119, Est GFR (MDRD) Non-Af 98, BUN/Creatinine Ratio 25.9 H, Glucose 176 H, Calcium 8.8 Micro: Microbiology 08/03/21 Unknown Bone - Toe Gram Stain - Final 08/03/21 Unknown Bone - Toe Wound Culture - Preliminary Escherichia coli 08/03/21 Unknown Bone - Toe Gram Stain - Final 08/03/21 Unknown Bone - Toe Wound Culture - Final Escherichia coli 08/05/21 02:43 Stool C. difficile DNA Amplification - Final 08/01/21 13:45 Wound Abcess - No Site/Description Given Gram Stain - Final 08/01/21 13:45 Wound Abcess - No Site/Description Given Wound Culture - Final Escherichia coli Enterobacter cloacae complex Presumptive C albicans Enterococcus faecalis 08/01/21 13:45 Wound Abcess - No Site/Description Given Anaerobic Culture - Preliminary Physical Exam Narrative Foot warm to touch. His skin is atrophic and hairless. Epicritic sensation is hypersensitive with light touch. Full-thickness incision noted to the dorsal forefoot at the level of the third ray with exposed third metatarsal, full-thickness incision noted to plantar midfoot extending down the level of flexor tendon sheath. There is minimal edema and no erythema or warmth at this time. There is some ruborous changes to the foot consistent with his lack of perfusion. No residual purulent drainage or malodor at this time. No evidence of residual abscess at this time. The borders of the incision and drainage sites do appear dusky and there is some delayed capillary refill time noted now to the distal fourth toe with some skin peeling to the medial aspect of the fourth toe. This toe and forefoot are still warm to touch. There is no bogginess or fluctuance on palpation the c ompartments of the left foot remain soft to palpate. No pain with calf squeeze to bilateral lower extremity. Assessment & Plan Assessment/Plan (1) Peripheral vascular disease, unspecified: (2) Abscess of left foot: (3) Osteomyelitis of foot, left, acute: (4) Non-pressure chronic ulcer of other part of left foot with necrosis of bone: PLAN: Patient examined evaluated, all findings were discussed with patient in detail. His vitals are stable and he is afebrile. No leukocytosis noted today. Patient underwent open partial third ray resection and incision drainage abscess left foot on 08/03/2021. Residual tissue appears devoid of any residual abscess. Erythema has resolved and the fourth toe appears viable. There is no purulence or luis necrosis noted at the surgical site. Noted wound culture with ecoli, enterobacter, rare mal, and enterococcus here. Polymicrobrial growth seen recently, including MSSA, enterobacter, CoNS, enterococcus. He is on IV vanc/zosyn. Clearance mirro culture growing GNR. PICC planned with dapto and erta with stop date 09/14/21. Infectious diseases on consult greatly appreciated. He will follow-up in [address] Li. The wounds were redressed incisional sites with Betadine soaked gauze 4 x 4's Kerlix and a noncompressive Mian bandage. This was applied extremely lightly due to severe peripheral arterial disease. To continue heel offloading with a Prevalon boot to prevent any pressure injury to the heel due to severe peripheral arterial disease. Patient will remain nonweightbearing to left lower extremity. Plan will likely be for wound VAC application to the left forefoot as there is a large soft tissue void that we will need to fill in after abscess decompression and ray resection. This will be considered after serial dressing changes this weekend for application potentially on Saturday. We will also consider delayed primary closure of the plantar midfoot incision likely on Saturday if the tissue quality looks appropriate versus a wound VAC may also just be applied to the site as well. We will consider doing this bedside as patient cannot tolerate any MAC or general anesthesia due to need for coronary artery bypass. This is a limb salvage case and he is considered stable at this time. We will continue to follow the patient closely. Please do not hesitate to call if you have any questions. Luna Negron DPM, [facility] [phone]
[2021-08-06] MEDS: 0.9% Saline Lock 10 ML Syringe IV (12:00)
[2021-08-06] MEDS: oxyCODONE 5 MG Tablet PO (13:02)
[2021-08-06 15:00] VITALS: BP 96/67; PULSE 79; RESP 18; TEMP 36.8; O2SAT 99
[2021-08-06 20:57] VITALS: BP 118/78; PULSE 79; RESP 18; TEMP 36.6; O2SAT 97
[2021-08-06] MEDS: Losartan Potassium 50 MG Tablet PO (21:02)
[2021-08-06] MEDS: traZODone 100 MG Tablet PO (21:03)
[2021-08-06] MEDS: amLODIPine 10 MG Tablet PO (21:03)
[2021-08-06] MEDS: Atorvastatin Calcium 40 MG Tablet PO (21:03)
[2021-08-06] MEDS: Empagliflozin 25 MG Tablet PO (21:03)
[2021-08-07 04:02] VITALS: BP 107/61; PULSE 74; RESP 18; TEMP 36.9; O2SAT 98
[2021-08-07] MEDS: Gabapentin 800 MG Tablet PO ×2 (05:27→14:42)
[2021-08-07 05:53] LABS: Absolute Lymphocyte Count 1.77 X10^3/uL (0.83-4.51); Absolute Neutrophil Count 5.6 X10^3/uL (2.0-7.7); Basophil# 0.04 X10^3/uL; Basophil% 0.5 % (0-1); Eosinophil# 0.34 X10^3/uL; Eosinophils% 4.1 % (0-5); Hematocrit 28.9 % (40-54); Hemoglobin 9.3 g/dL (13.0-16.5); Lymphocyte # 1.77 X10^3/ul (0.83-4.51); Lymphocyte % 21.5 % (19-41); Mean Corp Hgb Conc 32.2 g/dL (32-36); Mean Corpuscular Hgb 30.2 pg (27.0-32.0); Mean Corpuscular Volume 93.8 fL (80-94); Mean Platelet Vol. 9.2 fl (6.2-12.0); Monocyte% 6.1 % (0-10); NRBC Flagged by Analyzer 0 % (0-5); Neutrophil # 5.55 X10^3/uL (2.7-7.7); Neutrophil % 67.3 % (47-70); Platelet Count 377 K/mm3 (150-450); RBC Distribution Width CV 12.4 % (11.6-14.6); RBC Distribution Width SD 42.7 fl (35.1-43.9); Red Blood Count 3.08 M/mm3 (4.6-6.2); White Blood Count 8.2 K/mm3 (4.4-11.0)
[2021-08-07 06:29] LABS: Anion Gap 8 (5-15); BUN 22 mg/dL (7-18); BUN/Creat Ratio 28.8 RATIO (10-20); Calcium,Total 8.7 mg/dL (8.5-10.1); Chloride 108 mmol/L (98-107); Creatinine, Serum 0.76 mg/dL (0.70-1.30); EST Glomerular Filtration Rate 111 mL/min (>60); Est Glom Filt Rate - Afr Amer 134 mL/min (>60); Estimated Creatinine Clearance 112.84 ml/min; Glucose 205 mg/dL (74-106); Potassium 3.6 mmol/L (3.5-5.1); Sodium Level 140 mmol/L (136-145)
--- NOTE | 2021-08-07 07:27 | PN_ITS ---
Subjective Subjective 60-year-old male seen bedside 4 days status post left foot incision and drainage and open partial third ray resection. Patient denies any constitutional symptoms. Patient notes resolution of pain to foot. Patient still has pain to left lower extremity has been present since angiogram. Patient voiding urine and having bowel movements. No new complaints at this time. Objective Data Objective Data Vital Signs: Vital Signs Temp Pulse Resp BP Pulse Ox 98.4 F 74 18 107/61 98 08/07/21 04:02 08/07/21 04:02 08/07/21 04:02 08/07/21 04:02 08/07/21 04:02 Oxygen Delivery Method Room Air Weight: 83.2 kg Body Mass Index (BMI) 23.6 Intake & Output: Intake and Output for Last 24 Hours 08/05/21 08/06/21 08/07/21 23:59 23:59 23:59 Intake Total 817.00 / 817.00 966.0 / 966.0 Output Total 400 / 400 Balance 417.00 / 417.00 966.0 / 966.0 Lab / Micro Data Result Diagrams: 08/07/21 05:27 08/07/21 05:27 Labs: Laboratory Results - last 24 hr 08/07/21 05:27: WBC 8.2, RBC 3.08 L, Hgb 9.3 L, Hct 28.9 L, MCV 93.8, MCH 30.2, MCHC 32.2, RDW Std Deviation 42.7, RDW Coeff of Imtiaz 12.4, Plt Count 377, MPV 9.2, Immature Gran % (Auto) 0.500, Neut % (Auto) 67.3, Lymph % (Auto) 21.5, [place] % (Auto) 6.1, Eos % (Auto) 4.1, Baso % (Auto) 0.5, Absolute Neuts (auto) 5.6, Absolute Lymphs (auto) 1.77, Nucleated RBC % 0 08/07/21 05:27: Sodium 140, Potassium 3.6, Chloride 108 H, Carbon Dioxide 24.0, Anion Gap 8, BUN 22 H, Creatinine 0.76, Estim Creat Clear Calc 112.84, Est GFR (MDRD) Af Amer 134, Est GFR (MDRD) Non-Af 111, BUN/Creatinine Ratio 28.8 H, Glucose 205 H, Calcium 8.7 Micro: Microbiology 08/03/21 Unknown Bone - Toe Gram Stain - Final 08/03/21 Unknown Bone - Toe Wound Culture - Preliminary Escherichia coli 08/03/21 Unknown Bone - Toe Gram Stain - Final 08/03/21 Unknown Bone - Toe Wound Culture - Final Escherichia coli 08/05/21 02:43 Stool C. difficile DNA Amplification - Final 08/01/21 13:45 Wound Abcess - No Site/Description Given Gram Stain - Final 08/01/21 13:45 Wound Abcess - No Site/Description Given Wound Culture - Final Escherichia coli Enterobacter cloacae complex Presumptive C albicans Enterococcus faecalis 08/01/21 13:45 Wound Abcess - No Site/Description Given Anaerobic Culture - Preliminary Physical Exam Narrative Foot warm to touch. His skin is atrophic and hairless. Epicritic sensation is hypersensitive with light touch. Full-thickness incision noted to the dorsal forefoot at the level of the third ray with exposed third metatarsal, full-thickness incision noted to plantar midfoot extending down the level of flexor tendon sheath. There is minimal edema and no erythema or warmth at this time. There is some ruborous changes to the foot consistent with his lack of perfusion. No residual purulent drainage or malodor at this time. No evidence of residual abscess at this time. The borders of the incision and drainage sites do appear dusky and there is some delayed capillary refill time noted now to the distal fourth toe with some skin peeling to the medial aspect of the fourth toe. This toe and forefoot are still warm to touch. There is no bogginess or fluctuance on palpation the compartments of the left foot remain soft to palpate. No pain with calf squeeze to bilateral lower extremity. Assessment & Plan Assessment/Plan (1) Peripheral vascular disease, unspecified: (2) Abscess of left foot: (3) Osteomyelitis of foot, left, acute: (4) Non-pressure chronic ulcer of other part of left foot with necrosis of bone: PLAN: Patient examined evaluated, all findings were discussed with patient in detail. His vitals are stable and he is afebrile. No leukocytosis noted today. Patient underwent open partial third ray resection and incision drainage abscess left foot on 08/03/2021. Residual tissue appears devoid of any residual abscess. Erythema has resolved and the fourth toe appears viable. There is no purulence or luis necrosis noted at the surgical site. Noted wound culture with ecoli, enterobacter, rare mal, and enterococcus here. Polymicrobrial growth seen recently, including MSSA, enterobacter, CoNS, enterococcus. He is on IV vanc/zosyn. Clearance mirro culture growing GNR. PICC planned with dapto and erta with stop date 09/14/21. Infectious diseases on consult greatly appreciated. He will follow-up in [address] Li. The wounds were redressed incisional sites with Betadine soaked gauze 4 x 4's Kerlix and a noncompressive Mian bandage. This was applied extremely lightly due to severe peripheral arterial disease. To continue heel offloading with a Prevalon boot to prevent any pressure injury to the heel due to severe peripheral arterial disease. Patient will remain nonweightbearing to left lower extremity. Wound VAC ordered for left lower extremity. Patient will require either home health care dressing changes 3 times a week or SNF placement to receive IV antibiotics and to have wound VAC dressing changes. Patient will follow up with me in the wound care center weekly until resolution of left lower extremity ulcerations. This is a limb salvage case and he is considered stable at this time. We will continue to follow the patient closely. Please do not hesitate to call if you have any questions. Pasquale Watters DPM [facility] [phone]
--- NOTE | 2021-08-07 07:35 | PCM.PN.HOSP ---
Objective Data Objective Data Vital Signs: Vital Signs Temp Pulse Resp BP Pulse Ox 98.4 F 74 18 107/61 98 08/07/21 04:02 08/07/21 04:02 08/07/21 04:02 08/07/21 04:02 08/07/21 04:02 Oxygen Delivery Method Room Air Weight: 83.2 kg Body Mass Index (BMI) 23.6 Intake & Output: Intake and Output for Last 24 Hours 08/05/21 08/06/21 08/07/21 23:59 23:59 23:59 Intake Total 817.00 / 817.00 966.0 / 966.0 Output Total 400 / 400 Balance 417.00 / 417.00 966.0 / 966.0 Lab / Micro Data Result Diagrams: 08/07/21 05:27 08/07/21 05:27 Labs: Laboratory Results - last 24 hr 08/07/21 05:27: WBC 8.2, RBC 3.08 L, Hgb 9.3 L, Hct 28.9 L, MCV 93.8, MCH 30.2, MCHC 32.2, RDW Std Deviation 42.7, RDW Coeff of Imtiaz 12.4, Plt Count 377, MPV 9.2, Immature Gran % (Auto) 0.500, Neut % (Auto) 67.3, Lymph % (Auto) 21.5, [place] % (Auto) 6.1, Eos % (Auto) 4.1, Baso % (Auto) 0.5, Absolute Neuts (auto) 5.6, Absolute Lymphs (auto) 1.77, Nucleated RBC % 0 08/07/21 05:27: Sodium 140, Potassium 3.6, Chloride 108 H, Carbon Dioxide 24.0, Anion Gap 8, BUN 22 H, Creatinine 0.76, Estim Creat Clear Calc 112.84, Est GFR (MDRD) Af Amer 134, Est GFR (MDRD) Non-Af 111, BUN/Creatinine Ratio 28.8 H, Glucose 205 H, Calcium 8.7 Micro: Microbiology 08/03/21 Unknown Bone - Toe Gram Stain - Final 08/03/21 Unknown Bone - Toe Wound Culture - Preliminary Escherichia coli 08/03/21 Unknown Bone - Toe Gram Stain - Final 08/03/21 Unknown Bone - Toe Wound Culture - Final Escherichia coli 08/05/21 02:43 Stool C. difficile DNA Amplification - Final 08/01/21 13:45 Wound Abcess - No Site/Description Given Gram Stain - Final 08/01/21 13:45 Wound Abcess - No Site/Description Given Wound Culture - Final Escherichia coli Enterobacter cloacae complex Presumptive C albicans Enterococcus faecalis 08/01/21 13:45 Wound Abcess - No Site/Description Given Anaerobic Culture - Preliminary
[2021-08-07] MEDS: metFORMIN HCl 1,000 MG Tablet 1000 MG PO (08:34)
--- NOTE | 2021-08-07 09:17 | CASEMGMT ---
Addendum entered by Yi Hudson 08/07/21 15:37: Faxed [facility] pt training checklist. Addendum entered by Yi Hudson 08/07/21 15:27: TC to [facility]fusion [facility], pt to arrive at 11am. Pt notified and placed on dc plan. Addendum entered by Yi Hudson 08/07/21 15:25: Received vac approval, printed off proof of delivery and pt nurse received signature from pt. Faxed to [facility] at this time. Addendum entered by Yi Hudson 08/07/21 14:07: Received signed order for wound vac. Faxed to Sirena at [facility]. TC to her, she is aware of this and states the vac should be approved within the hour. Addendum entered by Yi Hudson 08/07/21 11:28: 1058- JOE CASTILLO in to pt room, he is aware that he can go to the Infusion Suite and have the HHC. Aware that [facility] will see him Saturday to start and then he will get on a schedule to work with the wound center appts. Pt is in a hurry to leave, made him aware the vac takes time to get approved but it will happen today. 1105- Received tc from Jacqueline at [facility], states pt has met oop and deductible and pt will not have cost for IV at home. JOE CASTILLO back into pt room, he is aware of this and still chooses to go outpt. TC back to Jacqueline to cancel referral. 1130- Faxed order form for vac at this time for signature. TC to office to make aware. Addendum entered by Yi Hudson 08/07/21 10:33: 0917- Pt chose [facility]. Addendum entered by Yi Hudson 08/07/21 09:52: TC to [facility], spoke with Gregoria, states pt can have HHC and go to the Infusion Center for IV's at the same time. Archive Record # for the call is [id number]. TC to [facility] to make aware pt will not need seen until Saturday for wound vac change and that pt will go to the Infusion Center daily for the IV's. TC to Infusion Center, spoke with Grgeoria, faxed [facility] infusion center the info for IV's. Original Note: RN CM in to pt room. Pt states he has had IV's in the past and he drove to [place] daily for them as they were too expensive. Pt would like to go to Infusion Center for the IVs and have [facility] nurse come out twice a week for vac changes with one day a week at the wound center. Made pt aware RN CM would have to check and see if the insurance would allow this as typically a patient needs to be homebound for homecare, going to the infusion center does not qualify him as homebound as it is an outpt service and can be done in the home. Pt is adamant he does not want IV infusions to be done in the home, states his cannot manage them. TC to [facility], spoke with Jacqueline, she will run benefit cost for IV's and notify this RN CM of cost. Will call Tran to verify.
[2021-08-07 10:00] VITALS: BP 118/69; PULSE 70; RESP 18; TEMP 36.8; O2SAT 98
[2021-08-07] MEDS: 0.9% Saline Lock 10 ML Syringe IV (10:05)
--- NOTE | 2021-08-07 10:27 | DS.PCM_ITS ---
Providers Date of Admission: 08/01/21 Date of Discharge: 08/07/21 Primary Care Physician: Dr. Javy Alcaraz, Consultations 08/01/21 13:18 Consult: Onc/Wound/solar energy technician Routine Comment: Reason for Consult:: Diabetic foot infection Consult: Podiatry Routine Consulting Provider: Pasquale Watters Reason for Consult: Diabetic foot infection EMERGENT Consult: No MD Notified: Yes Date Notified: 08/01/21 Time Notified: 13:18 Method of Notification: referred pt to hospital. 08/01/21 13:46 Consult: Infectious Disease Routine Consulting Provider: Behzad Li Reason for Consult: Recurrent L diabetic foot infection EMERGENT Consult: No MD Notified: Yes Date Notified: 08/01/21 Time Notified: 14:18 Method of Notification: Text Reason For Visit: DIABETIC LFT FOOT INFECTION Diagnosis Discharge Diagnosis (1) Peripheral vascular disease, unspecified: Status: Chronic Code(s): I73.9 - Peripheral vascular disease, unspecified (2) Abscess of left foot: Status: Acute Code(s): L02.612 - Cutaneous abscess of left foot (3) Osteomyelitis of foot, left, acute: Status: Acute Code(s): M86.172 - Other acute osteomyelitis, left ankle and foot (4) Non-pressure chronic ulcer of other part of left foot with necrosis of bone: Status: Chronic Code(s): L97.524 - Non-pressure chronic ulcer of other part of left foot with necrosis of bone Medications at Discharge Home Medications Jardiance 25 mg PO DAILY 05/25/21 Ozempic 1 mg SUBCUT FR 05/25/21 albuterol sulfate 2 puff INHALATION PRN PRN 05/25/21 amlodipine-atorvastatin 10 - 40 tab PO DAILY 05/25/21 gabapentin 800 mg PO TID 05/25/21 glipizide 5 mg PO BID 05/25/21 metformin 1,000 mg PO BID 05/25/21 olmesartan 20 mg PO DAILY 05/25/21 trazodone 100 mg PO DAILY 05/25/21 aspirin 325 mg PO DAILY 06/06/21 clopidogrel [Plavix] 75 mg PO DAILY 07/11/21 daptomycin 500 mg IV Q24H 40 Days #40 ea 08/04/21 ertapenem 1 g IV Q24 40 Days #40 ea 08/04/21 Hospital Course Operations - (Left partial third ray resection, I&D left foot abscess flexor tendon sheath) Procedures None Summary of Care Provided Minutes Spent on Discharge: 40 Hospital Course: 60-year-old male with past medical history of type II DM, hypertension, ischemic cardiomyopathy who presented from the wound center with worsening left foot wound. Patient had erythema, edema and pain as well as puru lent discharge from the base of his second and third toes. He was admitted to the [facility] and managed as acute infected left foot diabetic wound. Podiatry was consulted. MRI of the foot confirmed osteomyelitis of the left third digit. Patient underwent left third toe ray resection as well as I&D of the left foot abscess flexor tendon sheath. Wound cultures grew MSSA, Enterobacter, Enterococcus. Patient was initially on vancomycin and Zosyn. He had a PICC line placed. He was put on daily daptomycin and ertapenem to be given at the infusion center. He will be on IV antibiotics until 09/14/21. He will follow-up with weekly labs. Follow-up with ID in 1 week. He will be followed up at home by home health nurse for wound care. He will follow-up in the outpatient with podiatry. Patient was discharged with a wound VAC. Physical Exam Narrative Physical exam: General: Alert, oriented x3, Cooperative, no apparent distress HEENT: Atraumatic Oral: Moist Mucosa Neck: Supple Lungs: Clear to auscultation Cardiovascular: HS I+II, regular, no murmurs Abdomen: Bowel Sounds Present, Soft, Non Tender Extremities: No edema,left foot dressing clean, intact Skin: No rashes, No breakdown Neurological: Grossly intact Psych/Mental Status: Appropriate Weight / BMI Weight Weight: 83.2 kg Body Mass Index (BMI) 23.6 ABG / Lab / Microbiology Data Result Diagrams: 08/07/21 05:27 08/07/21 05:27 Laboratory: Laboratory Results - last 24 hr 08/07/21 05:27: WBC 8.2, RBC 3.08 L, Hgb 9.3 L, Hct 28.9 L, MCV 93.8, MCH 30.2, MCHC 32.2, RDW Std Deviation 42.7, RDW Coeff of Imtiaz 12.4, Plt Count 377, MPV 9.2, Immature Gran % (Auto) 0.500, Neut % (Auto) 67.3, Lymph % (Auto) 21.5, [place] % (Auto) 6.1, Eos % (Auto) 4.1, Baso % (Auto) 0.5, Absolute Neuts (auto) 5.6, Absolute Lymphs (auto) 1.77, Nucleated RBC % 0 08/07/21 05:27: Sodium 140, Potassium 3.6, Chloride 108 H, Carbon Dioxide 24.0, Anion Gap 8, BUN 22 H, Creatinine 0.76, Estim Creat Clear Calc 112.84, Est GFR (MDRD) Af Amer 134, Est GFR (MDRD) Non-Af 111, BUN/Creatinine Ratio 28.8 H, Glucose 205 H, Calcium 8.7 Microbiology: Microbiology 08/03/21 Unknown Bone - Toe Gram Stain - Final 08/03/21 Unknown Bone - Toe Wound Culture - Final Escherichia coli 08/03/21 Unknown Bone - Toe Anaerobic Culture - Preliminary 08/03/21 Unknown Bone - Toe Gram Stain - Final 08/03/21 Unknown Bone - Toe Wound Culture - Preliminary Escherichia coli 08/03/21 Unknown Bone - Toe Anaerobic Culture - Preliminary 08/05/21 02:43 Stool C. difficile DNA Amplification - Final 08/01/21 13:45 Wound Abcess - No Site/Description Given Gram Stain - Final 08/01/21 13:45 Wound Abcess - No Site/Description Given Wound Culture - Final Escherichia coli Enterobacter cloacae complex Presumptive C albicans Enterococcus faecalis 08/01/21 13:45 Wound Abcess - No Site/Description Given Anaerobic Culture - Preliminary D/C Instructions Discharge Diet: Low fat / Low cholesterol, 2000 Calorie Control Diet and 2000 mg Sodium Diet Call your doctor if your incision/area has: Continuous Slow Oozing, Sudden Increased Bleeding, Increased Pain/ Swelling, Increased Redness, Foul Smelling Discharge and Swelling at the incision site Call your doctor if you observe: Fever of 101 or Higher and Change in Color Meaningful Use Info Meaningful Use Diagnoses (Choose all that apply): None applicable Discharge Plan Admission Admit Date/Time: 08/01/21 13:18 Primary Reason for Your Visit: Abscess/diabetic foot infection Attending Provider: Connie Rai Primary Care Provider: Javy Alcaraz Consulting Providers: Alistair Montenegro ; Jessica Rao ; Behzad Li ; Pasquale Watters ; Ibeth Valenzuela Instructions Additional Instructions / Restrictions: Wound VAC has been ordered for the left lower extremity. You will be followed at home with home health for dressing changes. You received IV antibiotics -for 6 weeks. Weekly labs to be done and sent to infectious disease. Follow-up with podiatry in 1 week in the wound center as well as with infectious disease. Discharge Orders/Prescriptions Prescriptions: New ertapenem 1 gram Recon Soln 1 g IV Q24 40 Days Qty: 40 RF: 0 daptomycin 500 mg Recon Soln 500 mg IV Q24H 40 Days Qty: 40 RF: 0 Continued gabapentin 800 mg tablet 800 mg PO TID RF: 0 trazodone 100 mg tablet 100 mg PO DAILY RF: 0 metformin 1,000 mg tablet 1,000 mg PO BID RF: 0 albuterol sulfate 90 mcg/actuation HFA aerosol inhaler 2 puff INHALATION PRN PRN (Reason: Cough) RF: 0 glipizide 5 mg tablet 5 mg PO BID RF: 0 olmesartan 20 mg tablet 20 mg PO DAILY RF: 0 amlodipine-atorvastatin 10-40 mg tablet 10 - 40 tab PO DAILY RF: 0 Jardiance 25 mg tablet 25 mg PO DAILY RF: 0 Ozempic 1 mg/dose (4 mg/3 mL) pen injector 1 mg SUBCUT FR RF: 0 aspirin 325 mg Capsule 325 mg PO DAILY RF: 0 clopidogrel [Plavix] 75 mg Tablet 75 mg PO DAILY RF: 0 Discontinued metronidazole 500 mg tablet 500 mg PO TID RF: 0 cephalexin 500 mg capsule 500 mg PO TID RF: 0 Referrals / Follow Up: Pasquale Watters DPM [STAFF PHYSICIAN] - (Follow up at wound center. Call to schedule [phone]. ) Luna Negron DPM [STAFF PHYSICIAN] - (follow up with Dr. Watters at wound center. ) Javy Alcaraz DO [Primary Care Provider] - Behzad Li MD [STAFF PHYSICIAN] - Within 2 Weeks Disposition Disposition (needs filled in before D/C Order can be placed): Home Health Service Charges/Coding Visit Charges Inpatient E&M: 95551 Disch Hosp
[2021-08-07] MEDS: oxyCODONE 5 MG Tablet PO (14:42)
[2021-08-07 14:47] VITALS: BP 128/70; PULSE 74; RESP 18; TEMP 37.2; O2SAT 98
--- NOTE | 2021-08-07 14:48 | NURSING ---
Pt is given update on his pending insurance approval for wound vac. Pt is quite upset that insurance company is taking so long. He is instructing his to make a call and see what the hold up is. Spouse is refusing to at this time stating she is not doing it that he needs to wait. It is normal procedure. Medications given for pain. And Updates on status continues.
--- NOTE | 2021-08-07 15:19 | PHA.DC.MR ---
Pharmacy Service has performed discharge medication reconciliation for this patient. The patient's discharge medication list was reviewed for discrepancies and discrepancies were resolved. Home Medications Jardiance 25 mg PO DAILY 05/25/21 Ozempic 1 mg SUBCUT FR 05/25/21 albuterol sulfate 2 puff INHALATION PRN PRN 05/25/21 amlodipine-atorvastatin 10 - 40 tab PO DAILY 05/25/21 gabapentin 800 mg PO TID 05/25/21 glipizide 5 mg PO BID 05/25/21 metformin 1,000 mg PO BID 05/25/21 olmesartan 20 mg PO DAILY 05/25/21 trazodone 100 mg PO DAILY 05/25/21 aspirin 325 mg PO DAILY 06/06/21 clopidogrel [Plavix] 75 mg PO DAILY 07/11/21 daptomycin 500 mg IV Q24H 40 Days #40 ea 08/04/21 ertapenem 1 g IV Q24 40 Days #40 ea 08/04/21
[2021-08-07 16:07] VITALS: BP 124/60; PULSE 78; RESP 18; TEMP 36.8; O2SAT 98
== END 2021-08-07 16:06 | disposition home health service (06) | DRG 617 ==
PROVIDERS: Family Medicine; Internal Medicine Infectious Disease; Podiatrist; Student in an Organized Health Care Education/Training Program; Admitting Provider Internal Medicine; PCP Student in an Organized Health Care Education/Training Program; Visit Provider Internal Medicine
PROC: 0Y6N0Z6 Detachment at Left Foot, Complete 3rd Ray, Open Approach (ICD-10-PCS; principal; 2021-08-03 14:00)
DX: E11.621 Type 2 diabetes mellitus with foot ulcer (principal); M86.172 Other acute osteomyelitis, left ankle and foot; M00.872 Arthritis due to other bacteria, left ankle and foot; L02.612 Cutaneous abscess of left foot; E11.51 Type 2 diabetes mellitus with diabetic peripheral angiopathy without gangrene; L97.524 Non-pressure chronic ulcer of other part of left foot with necrosis of bone; D53.9 Nutritional anemia, unspecified; B37.9 Candidiasis, unspecified; E11.42 Type 2 diabetes mellitus with diabetic polyneuropathy; J44.9 Chronic obstructive pulmonary disease, unspecified; E11.628 Type 2 diabetes mellitus with other skin complications; E78.5 Hyperlipidemia, unspecified; I10 Essential (primary) hypertension; I25.5 Ischemic cardiomyopathy; I25.10 Atherosclerotic heart disease of native coronary artery without angina pectoris; Z87.891 Personal history of nicotine dependence; Z79.84 Long term (current) use of oral hypoglycemic drugs; Z79.82 Long term (current) use of aspirin; Z79.02 Long term (current) use of antithrombotics/antiplatelets
CPT/HCPCS: 36415; 36569; 71045; 73630; 73660; 73718; 76000; 80048; 80053; 80202; 82962; 83036; 83605; 83735; 85025; 85610; 85652; 85730; 86140; 87070; 87075; 87077; 87186; 87205; 87493; 87640; 88304; 88305; 88311; 97162; 97530; 97802; J0878; J7030; J7040; J7050; J7120; A4216; J2405; J3490

== ENCOUNTER → 2021-08-08 | Outpatient (CLI) | payer OTHER, SELFPAY ==
[2021-08-08 11:15] VITALS: BP 94/57; PULSE 86; RESP 18; TEMP 36.7; O2SAT 100; BMI 23.7
[2021-08-08 13:16] VITALS: BP 111/65; PULSE 69; RESP 16; O2SAT 97
== END | disposition home or self-care (01) ==
LOC: MEDOUTP 10:57
PROVIDERS: PCP Student in an Organized Health Care Education/Training Program; Referring Provider Internal Medicine Infectious Disease; Visit Provider Internal Medicine Infectious Disease
DX: M86.172 Other acute osteomyelitis, left ankle and foot (principal)
CPT/HCPCS: 96365; 96367; J0878; J7050; A4216; J3490

== ENCOUNTER → 2021-08-09 | Outpatient (CLI) | payer OTHER, SELFPAY ==
[2021-08-09 10:06] VITALS: BP 94/66; PULSE 88; RESP 16; TEMP 36.3; O2SAT 96
[2021-08-09 12:42] VITALS: BP 112/66; PULSE 70; RESP 16; TEMP 36.1; O2SAT 96
== END | disposition home or self-care (01) ==
LOC: MEDOUTP 09:51
PROVIDERS: PCP Student in an Organized Health Care Education/Training Program; Referring Provider Internal Medicine Infectious Disease; Visit Provider Internal Medicine Infectious Disease
DX: M86.172 Other acute osteomyelitis, left ankle and foot (principal)
CPT/HCPCS: 96365; 96367; J0878; J7050; A4216; J3490

== ENCOUNTER → 2021-08-10 | Outpatient (CLI) | payer OTHER, SELFPAY ==
[2021-08-10 09:14] VITALS: BP 92/49; PULSE 75; RESP 16; TEMP 35.8; O2SAT 99
[2021-08-10 10:55] VITALS: BP 104/67; PULSE 72; RESP 16; TEMP 36.1; O2SAT 99
== END | disposition home or self-care (01) ==
LOC: MEDOUTP 08:56
PROVIDERS: PCP Student in an Organized Health Care Education/Training Program; Referring Provider Internal Medicine Infectious Disease; Visit Provider Internal Medicine Infectious Disease
DX: M86.172 Other acute osteomyelitis, left ankle and foot (principal)
CPT/HCPCS: 96365; 96367; J0878; J7050; A4216; J3490

== ENCOUNTER → 2021-08-11 | Outpatient (CLI) | payer OTHER, SELFPAY ==
[2021-08-11 09:07] VITALS: BP 95/53; PULSE 81; RESP 16; TEMP 36.6; O2SAT 99
[2021-08-11 09:49] LABS: Hematocrit 31.9 % (40-54); Hemoglobin 10.1 g/dL (13.0-16.5); Mean Corp Hgb Conc 31.7 g/dL (32-36); Mean Corpuscular Volume 94.7 fL (80-94); Mean Platelet Vol. 9.1 fl (6.2-12.0); Platelet Count 493 K/mm3 (150-450); RBC Distribution Width CV 12.7 % (11.6-14.6); RBC Distribution Width SD 43.7 fl (35.1-43.9); Red Blood Count 3.37 M/mm3 (4.6-6.2); White Blood Count 9.6 K/mm3 (4.4-11.0)
[2021-08-11 09:54] LABS: AST(SGOT) 15 U/L (15-37); Alanine Aminotransfer ALT/SGPT 27 U/L (16-61); Albumin, Serum 2.1 g/dL (3.2-5.0); Alkaline Phosphatase 84 U/L (45-117); Anion Gap 6 (5-15); BUN 17 mg/dL (7-18); Bilirubin, Direct 0.06 mg/dL (0.00-0.30); CPK Total, Creatine Kinase 46 U/L (39-308); Calcium,Total 8.9 mg/dL (8.5-10.1); Chloride 108 mmol/L (98-107); Creatinine, Serum 0.81 mg/dL (0.70-1.30); EST Glomerular Filtration Rate 104 mL/min (>60); Est Glom Filt Rate - Afr Amer 126 mL/min (>60); Estimated Creatinine Clearance 105.87 ml/min; Glucose 206 mg/dL (74-106); Potassium 3.8 mmol/L (3.5-5.1); Protein, Total 7.1 g/dL (6.4-8.2); Sodium Level 141 mmol/L (136-145)
[2021-08-11 10:09] LABS: Erythrocyte Sedimentation Rate 78 mm/hr (0-20)
[2021-08-11 11:21] VITALS: BP 121/70; PULSE 68; RESP 16; O2SAT 98
== END | disposition home or self-care (01) ==
LOC: MEDOUTP 08:49
PROVIDERS: PCP Student in an Organized Health Care Education/Training Program; Referring Provider Internal Medicine Infectious Disease; Visit Provider Internal Medicine Infectious Disease
DX: M86.172 Other acute osteomyelitis, left ankle and foot (principal)
CPT/HCPCS: 96365; 96367; 36592; 80048; 80076; 82550; 85027; 85652; J0878; J7050; A4216; J3490

== ENCOUNTER 2021-08-12 08:47 | Outpatient (CLI) | payer OTHER, SELFPAY ==
[2021-08-12] MEDS: 0.9% NaCl PICC Flush IV ×2 (09:02→11:09)
== END 2021-08-12 11:09 | disposition home or self-care (01) ==
LOC: MEDOUTP 08:48 → PCU 08:49
PROVIDERS: PCP Student in an Organized Health Care Education/Training Program; Referring Provider Internal Medicine Infectious Disease; Visit Provider Internal Medicine Infectious Disease
DX: M86.172 Other acute osteomyelitis, left ankle and foot (principal)
CPT/HCPCS: 96365; 96367; J0878; A4216; J3490

== ENCOUNTER 2021-08-13 09:10 | Outpatient (CLI) | payer OTHER, SELFPAY ==
[2021-08-13 09:59] LABS: Absolute Lymphocyte Count 1.92 X10^3/uL (0.83-4.51); Absolute Neutrophil Count 7.2 X10^3/uL (2.0-7.7); Basophil# 0.05 X10^3/uL; Basophil% 0.5 % (0-1); Eosinophil# 0.22 X10^3/uL; Eosinophils% 2.3 % (0-5); Hematocrit 32.2 % (40-54); Hemoglobin 10.4 g/dL (13.0-16.5); Lymphocyte # 1.92 X10^3/ul (0.83-4.51); Lymphocyte % 19.7 % (19-41); Mean Corp Hgb Conc 32.3 g/dL (32-36); Mean Corpuscular Hgb 30.1 pg (27.0-32.0); Mean Corpuscular Volume 93.1 fL (80-94); Mean Platelet Vol. 8.7 fl (6.2-12.0); Monocyte# 0.33 X10^3/uL; Monocyte% 3.4 % (0-10); NRBC Flagged by Analyzer 0 % (0-5); Neutrophil % 73.7 % (47-70); Platelet Count 484 K/mm3 (150-450); RBC Distribution Width CV 12.8 % (11.6-14.6); RBC Distribution Width SD 42.9 fl (35.1-43.9); Red Blood Count 3.46 M/mm3 (4.6-6.2); White Blood Count 9.8 K/mm3 (4.4-11.0)
[2021-08-13 10:06] LABS: Anion Gap 5 (5-15); BUN 19 mg/dL (7-18); BUN/Creat Ratio 22.5 RATIO (10-20); Calcium,Total 8.7 mg/dL (8.5-10.1); Chloride 106 mmol/L (98-107); Creatinine, Serum 0.84 mg/dL (0.70-1.30); EST Glomerular Filtration Rate 99 mL/min (>60); Est Glom Filt Rate - Afr Amer 120 mL/min (>60); Glucose 161 mg/dL (74-106); Potassium 4.1 mmol/L (3.5-5.1); Sodium Level 139 mmol/L (136-145)
== END 2021-08-13 10:59 | disposition home or self-care (01) ==
LOC: MEDOUTP 09:11 → MS3 09:58 → PCU 10:01
PROVIDERS: Internal Medicine Cardiovascular Disease; PCP Student in an Organized Health Care Education/Training Program; Visit Provider Internal Medicine Infectious Disease
DX: I42.9 Cardiomyopathy, unspecified (principal)
CPT/HCPCS: 36415; 80048; 85025

== ENCOUNTER → 2021-08-13 | Outpatient (CLI) | payer OTHER, SELFPAY | END | disposition home or self-care (01) | LOC: MEDOUTP 08-19 21:10 | PROVIDERS: PCP Student in an Organized Health Care Education/Training Program; Referring Provider Internal Medicine Infectious Disease; Visit Provider Internal Medicine Infectious Disease | DX: M86.8X7 Other osteomyelitis, ankle and foot (principal) | CPT/HCPCS: 96365; 96367; J0878; J3490 ==

== ENCOUNTER 2021-08-14 08:51 | Outpatient (CLI) | payer OTHER, SELFPAY ==
[2021-08-14 09:00] VITALS: BP 109/77; PULSE 67; RESP 16; TEMP 36.5; O2SAT 99; BMI 23.7
[2021-08-14 09:04] VITALS: BMI 23.7
[2021-08-14 10:48] VITALS: BP 115/74; PULSE 72; RESP 16; TEMP 36.4; O2SAT 98
== END 2021-08-14 10:49 | disposition home or self-care (01) ==
LOC: MEDOUTP 08:52 → PCU 08:52
PROVIDERS: PCP Student in an Organized Health Care Education/Training Program; Referring Provider Internal Medicine Infectious Disease; Visit Provider Internal Medicine Infectious Disease
DX: M86.8X7 Other osteomyelitis, ankle and foot (principal)
CPT/HCPCS: 96365; 96366; J0878; J3490

== ENCOUNTER 2021-08-15 08:15 | Outpatient (RCR) | payer OTHER, SELFPAY ==
[2021-07-16 00:41] VITALS: BP 108/71; PULSE 80; RESP 16; TEMP 35.5; BMI 23.8
[2021-07-17 13:05] VITALS: BP 132/111; PULSE 99; RESP 16; TEMP 37.1; BMI 23.8
--- NOTE | 2021-07-17 13:43 | PCM.WC.PN ---
History of Present Illness Date of Service: 07/17/21 Chief Complaint: Left 3rd toe redness History of Wound: This 60-year-old male seen for follow-up on the left foot ulceration secondary to poorly controlled diabetes. Patient receiving Keflex left foot diabetic foot infection. Patient denies constitutional symptoms or pain at this time. Patient has significant peripheral arterial disease and recently underwent angioplasty to left lower extremity. He notes significant improvement of his wounds at this time. Patient offloading left foot ulceration with heel weightbearing to surgical shoe on the left side. No other complaints. Progress of Wound: This is a courtesy visit. Patient typically sees Dr. Watters. Patient comes in today with concern about the increasing redness he is experiencing with his left 3rd toe. He states that it started to get red 3 days ago. He states it has progressively worsened over the weekend. He states that he has had some upset stomach and nausea, no vomiting, but states he doesn't feel well. His is especially concerned with how red his left 3rd toe looks. He started to take left over Doxycycline over the weekend. He did not notice improvement with this. He states he completed the Keflex a couple weeks ago. Objective Data Objective Data Vital Signs: Vital Signs Temp Pulse Resp BP 98.7 F 99 16 132/111 H 07/17/21 13:05 07/17/21 13:05 07/17/21 13:05 07/17/21 13:05 Oxygen Delivery Method Room Air Weight: 171 lb Body Mass Index (BMI) 23.8 Charges/Coding Procedures Integumentary 111xxx-113xx: [id number] Yara subq tissue 20 sq cm/< Physical Exam Const alert and oriented x3 HEENT normocephalic Resp normal respiratory effort Extremity Extremity Narrative: Patient wearing surgical shoe on left foot. Left dorsalis pedis and post tib pulses palp. Skin Skin Narrative: Left 3rd toe is pink which extends to the base of the toe. The color does not go onto the foot. His foot and toes are warm to touch, but not hot. He has an ulcer on the left lateral third toe which looks fibrous. Neuro CN's II-XII intact bilaterally Psych Appearance: grossly normal and well kempt Debridement Note Debridement Note Wound debrided: lateral third toe ulcer Laterality: Left Type of Debridement: Excisional debridement Anesthesia Used: 5% Lidocaine Gel Depth: Down to and including healthy tissue and in the subcutaneous layer Percentage of wound debrided: 100 Instrument Used: 3mm curette Tissue Removed: Non viable tissue and slough Severity: Fat Layer Exposed Bleeding Controlled with: Pressure Patient tolerated procedure: Patient tolerated procedure well Post-Debridement Measurements and Additional Note: Post-Debridement Measurements/Treatment WC - Nurse 1 - General Ulcer Assessment Start: 07/17/21 13:05 Freq: Status: Active Protocol: MONICA Activity Type Activity Date Activity User E-Sign Co-Sign Detail Recorded Client Recorded Date Recorded By Document 07/17/21 13:05 DEDRA [id number] 07/17/21 13:08 DEDRA 07/17/21 13:05 WC - Today's Visit Information Type of service Follow-up Visit (Physician/DATA PROCESSING SYSTEMS CONSULTANT ) Arrival Mode Ambulatory Transfer Assistance None Patient Identification Verified (Name & Yes ) Patient Requires Transmission-Based No Precautions Height and Weight Body Mass Index (BMI) 23.8 BMI Classification Normal Vital Signs Temperature (97.8 F-99.1 F) 98.7 F Temperature Source Temporal Pulse Rate (60-100) 99 Pulse Location Monitor Respiratory Rate (12-18) 16 Respiratory rate source Observation Oxygen Delivery Method Room Air Blood Pressure (90/60-120/80) 132/111 H Blood Pressure Mean (mm Hg) 118 Source Monitor Position Sitting Blood Pressure Location Right Arm History Since Last Visit- (Skip if this is Patient's initial visit) Have you changed medications since your No last visit? Any new allergies or adverse reactions No Had a fall/change in ADL's that may No increase risk of falls Signs or symptoms of abuse and/or No neglect since last visit Have you been in the hospital since your No last visit? Has dressing in place as prescribed Yes Has compression in place as prescribed N/A Has offloadiing in place as prescribed N/A Experienced any changes in pain level or No management Left Footwear Surgical Shoe with pressure relief insole Right Footwear Regular Shoe Pain Scale: 0-10 Numeric Is Patient Pain Free? No wound -Description Sharp -Intensity 3 -Duration (hours) Acute -Pain Behavior Withdrawal from Touch,Facial Grimacing -Alleviating Factors/Interventions Distraction, Will continue to monitor, Patient denies need for intervention -Comments wound painful w / cleansing/ measuring WC - Nurse 1 - General Ulcer Measurement Start: 07/17/21 13:05 Freq: Status: Active Protocol: Activity Type Activity Date Activity User E-Sign Co-Sign Detail Recorded Client Recorded Date Recorded By Document 07/17/21 13:05 DEDRA [id number] 07/17/21 13:08 DEDRA 07/17/21 13:05 Wound Center Nurse 1 #2 Left Foot 2,3 rd Web Space -Current Size (cm) - Length 1.4 -Current Size (cm) - Width 0.6 -Current Size (cm) - Depth 0.3 -Total Square Cm 0.84 -Photo Taken No -Epithelialization None Present -Tunneling No -Undermining/Tunneling No -Circular Undermining No -Exudate Amt Medium -Exudate Type Serosanguineous -Wound Margin Distinct, Outline Attached -Granulation Amt Medium (34-66%) -Granulation Quality Red -Slough/Fibrin Yes -Necrosis Amt Medium (34-66%) -Necrotic Tissue Type Adherent Slough -Texture (Bernadette-wound Skin Appearance) Assessed, Scarring -Moisture (Bernadette-wound Skin Appearance) Assessed, Maceration -Color (Bernadette-wound Skin Appearance) Assessed, Erythema -Temperature (Bernadette-wound Skin No Abnormality Appearance) (Pt Warm) -Tenderness on Palpation (Bernadette-wound No Skin Appearance) -Ulcer Cleansing Soap and Water -Foul Odor after Cleansing No -Anesthetic Used 5% Lidocaine Gel #1 Left Foot Plantar -Combined with other wound No -Current Size (cm) - Length 0.1 -Current Size (cm) - Width 0.1 -Current Size (cm) - Depth 0.1 -Total Square Cm 0.01 -Photo Taken No -Epithelialization Large 67-100% -Tunneling No -Undermining/Tunneling No -Circular Undermining No -Exudate Amt None Present -Texture (Bernadette-wound Skin Appearance) Callus,Scarring -Moisture (Bernadette-wound Skin Appearance) Assessed,Dry/ Scaly -Color (Bernadette-wound Skin Appearance) Assessed -Temperature (Bernadette-wound Skin No Abnormality Appearance) (Pt Warm) -Tenderness on Palpation (Bernadette-wound No Skin Appearance) -Ulcer Cleansing Soap and Water -Foul Odor after Cleansing No -Anesthetic Used 5% Lidocaine Gel WC - Nurse 2 - General Ulcer CM Notes Start: 07/17/21 13:05 Freq: Status: Active Protocol: Activity Type Activity Date Activity User E-Sign Co-Sign Detail Recorded Client Recorded Date Recorded By Document 07/17/21 13:39 ORESTES [id number] 07/17/21 13:41 ORESTES 07/17/21 13:39 Wound Center Nurse 2 #2 Left Foot 2,3 rd Web Space -Time 13:39 -Correct Patient Yes -Correct Side, Site, Position Yes -Correct Procedure Yes -Procedure Performed Yes -Type of Procedure Incision & Drainage -Clinical Debridement Subcutaneous -Tissue Removed Subcutaneous -Post Debridement (cm) - Length 2.0 -Post Debridement (cm) - Width 1.8 -Post Debridement (cm) - Depth 0.3 -Total Square (Post) (cm) 3.60 -Area of Debridement (cm) - Length 2.0 -Area of Debridement (cm) - Width 1.8 -Total Square (Area) (cm) 3.60 -Tunneling No -Undermining/Tunneling No -Circular Undermining No -Wound/Ulcer Outcome Not Healed -Ulcer Cleansing Rinsed/ Irrigated with Saline -Foul Odor after Cleansing No -Bioengineered Tissue No -Bleeding Controlled with Pressure -Treatment Response Procedure Tolerated Well -Offloading Yes -Type of Offloading Surgical Shoe -Debridement - Subq, 1st 20sq cm Yes #1 Left Foot Plantar -Correct Patient No -Correct Side, Site, Position No -Correct Procedure No -Procedure Performed No Pain Scale: 0-10 Numeric Is Patient Pain Free? Yes Assessment/Plan Assessment/Plan (1) Peripheral vascular disease, unspecified: CODE(S): I73.9 - Peripheral vascular disease, unspecified (2) Type 2 diabetes mellitus with diabetic polyneuropathy: CODE(S): E11.42 - Type 2 diabetes mellitus with diabetic polyneuropathy QUALIFIERS: Diabetes mellitus shelter insulin use: unspecified shelter insulin use status Qualified Code(s): E11.42 - Type 2 diabetes mellitus with diabetic polyneuropathy (3) Non-pressure chronic ulcer of other part of left foot with fat layer exposed: CODE(S): L97.522 - Non-pressure chronic ulcer of other part of left foot with fat layer exposed (4) Diabetic infection of left foot: CODE(S): E11.628 - Type 2 diabetes mellitus with other skin complications; L08.9 - Local infection of the skin and subcutaneous tissue, unspecified (5) Cellulitis of toe of left foot: CODE(S): L03.032 - Cellulitis of left toe PLAN: Patient seen as a courtesy visit. I discussed the patient's case with Dr. Watters since that is who the patient typically sees. We discussed the patient's condition and assessment. I am concerned that he has a cellulitis. I obtained a wound culture after doing a subcutaneous debridement. He tolerated the procedure well. It was discussed to start Doxycycline (14 tabs) and Cipro (14 tabs). I prescribed 7 days since there are wound cultures pending. I instructed the patient how to take the medications. Continue Glenna covered with gauze daily. Plantar foot remains healed. Continue heel weightbearing in surgical shoe to offload the site. Patient is to follow up tomorrow with Dr. Watters so he is able to reassess the patient. He stated that he may need to be admitted if his symptoms do not improve overnight.
[2021-07-18 10:28] VITALS: BP 108/70; PULSE 97; RESP 16; TEMP 36.6; BMI 23.8
--- NOTE | 2021-07-18 11:15 | PN.PCM_ITS ---
History of Present Illness Date of Service: 07/18/21 Chief Complaint: Left 3rd toe redness History of Wound: This 60-year-old male seen for follow-up on the left foot ulceration secondary to poorly diabetic neuropathy and peripheral arterial disease. Patient had revascularization per Dr. Maciel. Patient denies any constitutional symptoms at this time and notes some resolution of the erythema edema to his left third digit. Patient has been taking doxycycline and ciprofloxacin for the past several days but notes some diarrhea at this time. Patient has no other complaints has been otherwise compliant with treatment. Controlled diabetes. Objective Data Objective Data Vital Signs: Vital Signs Temp Pulse Resp BP 97.9 F 97 16 108/70 07/18/21 10:28 07/18/21 10:28 07/18/21 10:28 07/18/21 10:28 Oxygen Delivery Method Room Air Weight: 77.564 kg Body Mass Index (BMI) 23.8 Physical Exam Narrative Patient alert oriented to person, place, and time. Patient ambulating heel weightbearing in surgical shoe left lower extremity. Vascular: Dorsalis pedis posterior tibial pulses monophasic to left lower extremity. Dorsalis pedis posterior tibial pulses right side palpable 1 out of 4. Delayed capillary fill time left lower extremity. Diminished digital hair growth. Atrophic skin changes noted. Neurologic: Light touch protective sensation absent to bilateral feet. No evidence of clonus or Babinski sign. Dermatologic full-thickness ulceration noted to the plantar third metatarsal head with significant periwound hyperkeratosis mild periwound erythema edema and warmth. Full thickness ulcerations with serous drainage to the third interspace, this wound extends down to bone postdebridement. No other signs of infection or deep probing at this time. This erythema is improved from hospital admission. No evidence of fluctuance or crepitus to the periwound areas. Musculoskeletal: No wound forming deformity noted to bilateral lower extremity. Muscular strength 5 out of 5 to bilateral lower extremity compartments No pain with calf squeeze bilateral lower extremities. Debridement Note Debridement Note Post-Debridement Measurements and Additional Note: Post-Debridement Measurements/Treatment ROYCE - Nurse 1 - General Ulcer Assessment Start: 07/17/21 13:05 Freq: Status: Active Protocol: MONICA Activity Type Activity Date Activity User E-Sign Co-Sign Detail Recorded Client Recorded Date Recorded By Document 07/17/21 13:05 DEDRA [id number] 07/17/21 13:08 KR Document 07/18/21 10:28 [facility] [id number] 07/18/21 10:37 BMF 07/17/21 07/18/21 13:05 10:28 WC - Today's Visit Information Type of service Follow-up Visit Follow-up Visit (Physician/TRAY DELIVERY AIDE (Physician/TRAY DELIVERY AIDE ) ) Arrival Mode Ambulatory Cane Transfer Assistance None None Patient Identification Verified (Name & Yes Yes ) Patient Requires Transmission-Based No No Precautions Height and Weight Body Mass Index (BMI) 23.8 23.8 BMI Classification Normal Normal Vital Signs Temperature (97.8 F-99.1 F) 98.7 F 97.9 F Temperature Source Temporal Temporal Pulse Rate (60-100) 99 97 Pulse Location Monitor Monitor Respiratory Rate (12-18) 16 16 Respiratory rate source Observation Observation Oxygen Delivery Method Room Air Room Air Blood Pressure (90/60-120/80) 132/111 H 108/70 Blood Pressure Mean (mm Hg) 118 82 Source Monitor Monitor Position Sitting Sitting Blood Pressure Location Right Arm Left Arm History Since Last Visit- (Skip if this is Patient's initial visit) Have you changed medications since your No No last visit? Any new allergies or adverse reactions No No Had a fall/change in ADL's that may No No increase risk of falls Signs or symptoms of abuse and/or No No neglect since last visit Have you been in the hospital since your No No last visit? Has dressing in place as prescribed Yes Yes Has compression in place as prescribed N/A N/A Has offloadiing in place as prescribed N/A Yes Experienced any changes in pain level or No No management Left Footwear Surgical Shoe Surgical Shoe with pressure with pressure relief insole relief insole Right Footwear Regular Shoe Regular Shoe Pain Scale: 0-10 Numeric Is Patient Pain Free? No Yes wound -Description Sharp -Intensity 3 -Duration (hours) Acute -Pain Behavior Withdrawal from Touch,Facial Grimacing -Alleviating Factors/Interventions Distraction, Will continue to monitor, Patient denies need for intervention -Comments wound painful w / cleansing/ measuring WC - Nurse 1 - General Ulcer Measurement Start: 07/17/21 13:05 Freq: Status: Active Protocol: Activity Type Activity Date Activity User E-Sign Co-Sign Detail Recorded Client Recorded Date Recorded By Document 07/17/21 13:05 KR [id number] 07/17/21 13:08 KR Document 07/18/21 10:28 [facility] [id number] 07/18/21 10:37 BMF 07/17/21 07/18/21 13:05 10:28 Wound Center Nurse 1 #2 Left Foot 2,3 rd Web Space -Combined with other wound No -Current Size (cm) - Length 1.4 2 -Current Size (cm) - Width 0.6 1.5 -Current Size (cm) - Depth 0.3 0.3 -Total Square Cm 0.84 3.0 -Photo Taken No No -Epithelialization None Present None Present -Tunneling No No -Undermining/Tunneling No No -Circular Undermining No No -Exudate Amt Medium Medium -Exudate Type Serosanguineous Serosanguineous -Wound Margin Distinct, Distinct, Outline Outline Attached Attached -Granulation Amt Medium (34-66%) None Present (0 %) -Granulation Quality Red -Slough/Fibrin Yes Yes -Necrosis Amt Medium (34-66%) Large (67-100%) -Necrotic Tissue Type Adherent Slough Adherent Slough -Texture (Bernadette-wound Skin Appearance) Assessed, Assessed Scarring -Moisture (Bernadette-wound Skin Appearance) Assessed, Assessed Maceration -Color (Bernadette-wound Skin Appearance) Assessed, Assessed Erythema -Temperature (Bernadette-wound Skin No Abnormality No Abnormality Appearance) (Pt Warm) (Pt Warm) -Tenderness on Palpation (Bernadette-wound No Yes Skin Appearance) -Ulcer Cleansing Soap and Water Rinsed/ Irrigated with Saline -Foul Odor after Cleansing No No -Anesthetic Used 5% Lidocaine 4% Lidocaine Gel Solution #1 Left Foot Plantar -Combined with other wound No -Current Size (cm) - Length 0.1 -Current Size (cm) - Width 0.1 -Current Size (cm) - Depth 0.1 -Total Square Cm 0.01 -Photo Taken No -Epithelialization Large 67-100% -Tunneling No -Undermining/Tunneling No -Circular Undermining No -Exudate Amt None Present -Texture (Bernadette-wound Skin Appearance) Callus,Scarring -Moisture (Bernadette-wound Skin Appearance) Assessed,Dry/ Scaly -Color (Bernadette-wound Skin Appearance) Assessed -Temperature (Bernadette-wound Skin No Abnormality Appearance) (Pt Warm) -Tenderness on Palpation (Bernadette-wound No Skin Appearance) -Ulcer Cleansing Soap and Water -Foul Odor after Cleansing No -Anesthetic Used 5% Lidocaine Gel - Nurse 2 - General Ulcer CM Notes Start: 07/17/21 13:05 Freq: Status: Active Protocol: Activity Type Activity Date Activity User E-Sign Co-Sign Detail Recorded Client Recorded Date Recorded By Document 07/17/21 13:39 [id number] 07/17/21 13:41 07/17/21 13:39 Wound Center Nurse 2 -Time 13:39 -Correct Patient Yes -Correct Side, Site, Position Yes -Correct Procedure Yes -Procedure Performed Yes -Type of Procedure Incision & Drainage -Clinical Debridement Subcutaneous -Tissue Removed Subcutaneous -Post Debridement (cm) - Length 2.0 -Post Debridement (cm) - Width 1.8 -Post Debridement (cm) - Depth 0.3 -Total Square (Post) (cm) 3.60 -Area of Debridement (cm) - Length 2.0 -Area of Debridement (cm) - Width 1.8 -Total Square (Area) (cm) 3.60 -Tunneling No -Undermining/Tunneling No -Circular Undermining No -Wound/Ulcer Outcome Not Healed -Ulcer Cleansing Rinsed/ Irrigated with Saline -Foul Odor after Cleansing No -Bioengineered Tissue No -Bleeding Controlled with Pressure -Treatment Response Procedure Tolerated Well -Offloading Yes -Type of Offloading Surgical Shoe -Debridement - Subq, 1st 20sq cm Yes #1 Left Foot Plantar -Correct Patient No -Correct Side, Site, Position No -Correct Procedure No -Procedure Performed No Pain Scale: 0-10 Numeric Is Patient Pain Free? Yes - Nurse 3 - General Ulcer D/C NN Start: 07/17/21 13:05 Freq: Status: Active Protocol: Activity Type Activity Date Activity User E-Sign Co-Sign Detail Recorded Client Recorded Date Recorded By Document 07/18/21 10:58 [facility] [id number] 07/18/21 10:58 [facility] 07/18/21 10:58 Wound Care Nurse 3 #2 Left Foot 2,3 rd Web Space -Ulcer Cleansing Rinsed/ Irrigated with Saline -Foul Odor after Cleansing No -Primary Dressing Applied Other -Other Dressing betadine -Primary Dressing Covered/Secured with Dry Gauze & Roll Gauze, Secured with Tape -Other Covering drsg per nelson rn Treatment Response Procedure Tolerated Well Pain Scale: 0-10 Numeric Is Patient Pain Free? Yes WC - Visit Discharge Discharge Condition Stable Ambulatory Status Ambulatory Transportation Private Auto Assessment/Plan Assessment/Plan (1) Cellulitis of toe of left foot: CODE(S): L03.032 - Cellulitis of left toe (2) Peripheral vascular disease, unspecified: CODE(S): I73.9 - Peripheral vascular disease, unspecified (3) Type 2 diabetes mellitus with diabetic polyneuropathy: CODE(S): E11.42 - Type 2 diabetes mellitus with diabetic polyneuropathy QUALIFIERS: Diabetes mellitus adjunct faculty for medical terminology insulin use: unspecified [facility] insulin use status Qualified Code(s): E11.42 - Type 2 diabetes mellitus with diabetic polyneuropathy (4) Non-pressure chronic ulcer of other part of left foot with fat layer exposed: CODE(S): L97.522 - Non-pressure chronic ulcer of other part of left foot with fat layer exposed PLAN: Patient examined evaluated, all findings reyes with patient in detail. Patient has new onset onset infection to his left third digit. Patient's wound was debrided flushed and cultured yesterday on 07/17/2021 by another provider. Patient was placed on doxycycline and ciprofloxacin. After review of patient's previous cultures we will discontinue doxycycline and ciprofloxacin and order the patient Keflex 750 twice daily. Patient's left third digital wound was excisionally debrided down to including the level of tendon of all nonviable tissue using a 5 mm dermal curette. No anesthesia required due to neuropathy hemostasis obtained with light compression patient tolerated procedure well. Postdebridement measurement documented notes. At this time there is limited tissue viability to the left third digit with recurrent infection, it is my recommendation that for wound healing purposes and infection clearance and return to function patient proceeds with a left third digital amputation. This was discussed with the patient in detail including all inherent risk benefits alternative treatment and postoperative course. Patient is in agreements at this time and we will continue dressing the site daily with Betadine and dry sterile dressing offloading with a surgical shoe. Heel weightbearing and plan for third digit amputation within the next 1 to 2 weeks. Patient will continue his antibiotics at that time and follow-up in the wound care center weekly.
[2021-07-18 15:17] LABS: M R Staph aureus DNA By PCR Negative (Negative); Probe Check PASS; Specimen Processing Control PASS; Staph aureus DNA By PCR POSITIVE (Negative)
[2021-07-25 10:44] VITALS: BP 110/74; PULSE 105; RESP 18; TEMP 36.3; BMI 23.8
--- NOTE | 2021-07-25 11:52 | PN.PCM_ITS ---
History of Present Illness Date of Service: 07/25/21 Chief Complaint: Left 3rd toe redness History of Wound: This 60-year-old male seen for follow-up on the left foot ulceration secondary to poorly diabetic neuropathy and peripheral arterial disease. Patient had revascularization per Dr. Maciel. Patient denies any constitutional symptoms at this time and notes some resolution of the erythema edema to his left third digit. Patient has been taking doxycycline and ciprofloxacin for the past several days but notes some diarrhea at this time. Patient has no other complaints has been otherwise compliant with treatment. Controlled diabetes. Progress of Wound: This is a courtesy visit. Patient typically sees Dr. Watters. Patient comes in today with concern about the increasing redness he is experiencing with his left 3rd toe. He states that it started to get red 3 days ago. He states it has progressively worsened over the weekend. He states that he has had some upset stomach and nausea, no vomiting, but states he doesn't feel well. His is especially concerned with how red his left 3rd toe looks. He started to take left over Doxycycline over the weekend. He did not notice improvement with this. He states he completed the Keflex a couple weeks ago. Objective Data Objective Data Vital Signs: Vital Signs Temp Pulse Resp BP 97.4 F L 105 H 18 110/74 07/25/21 10:44 07/25/21 10:44 07/25/21 10:44 07/25/21 10:44 Oxygen Delivery Method Room Air Weight: 77.564 kg Body Mass Index (BMI) 23.8 Lab / Micro Data Micro: Microbiology 07/18/21 Unknown Wound Abcess - Left Foot Gram Stain - Final 07/18/21 Unknown Wound Abcess - Left Foot Wound Culture - Final Staphylococcus aureus Enterobacter cloacae complex Enterococcus faecalis Staphylococcus saprophyticus 07/18/21 Unknown Wound Abcess - Left Foot Anaerobic Culture - Final No anaerobic bacteria isolated. Physical Exam Narrative Patient alert oriented to person, place, and time. Patient ambulating heel weightbearing in surgical shoe left lower extremity. Vascular: Dorsalis pedis posterior tibial pulses monophasic to left lower extremity. Dorsalis pedis posterior tibial pulses right side palpable 1 out of 4. Delayed capillary fill time left lower extremity. Diminished digital hair growth. Atrophic skin changes noted. Neurologic: Light touch protective sensation absent to bilateral feet. No evidence of clonus or Babinski sign. Dermatologic full-thickness ulceration noted to the plantar third metatarsal head with significant periwound hyperkeratosis mild periwound erythema edema and warmth. Full thickness ulcerations with serous drainage to the third interspace, this wound extends down to bone postdebridement. No other signs of infection or deep probing at this time. This erythema is improved from hospital admission. No evidence of fluctuance or crepitus to the periwound areas. Musculoskeletal: No wound forming deformity noted to bilateral lower extremity. Muscular strength 5 out of 5 to bilateral lower extremity compartments No pain with calf squeeze bilateral lower extremities. Debridement Note Debridement Note Post-Debridement Measurements and Additional Note: Post-Debridement Measurements/Treatment - Nurse 1 - General Ulcer Assessment Start: 07/17/21 13:05 Freq: Status: Active Protocol: MONICA Activity Type Activity Date Activity User E-Sign Co-Sign Detail Recorded Client Recorded Date Recorded By Document 07/17/21 13:05 KR [id number] 07/17/21 13:08 Document 07/18/21 10:28 [facility] [id number] 07/18/21 10:37 [facility] Document 07/25/21 10:44 MW [id number] 07/25/21 10:52 MW 07/17/21 07/18/21 07/25/21 13:05 10:28 10:44 - Today's Visit Information Type of service Follow-up Visit Follow-up Visit Follow-up Visit (Physician/[employer]PERVISOR [employer] (Physician/SUPERVISOR [employer] (Physician/SUPER[employer] ) ) ) Arrival Mode Ambulatory Cane Ambulatory Transfer Assistance None None None Accompanied by self Patient Identification Verified (Name & Yes Yes Yes ) Patient Requires Transmission-Based No No No Precautions Safety Precautions NA Finger Stick Blood Sugar(mg/dl) (if 135 indicated): Blood Sugar Stated by Patient Height and Weight Body Mass Index (BMI) 23.8 23.8 23.8 BMI Classification Normal Normal Normal Vital Signs Temperature (97.8 F-99.1 F) 98.7 F 97.9 F 97.4 F L Temperature Source Temporal Temporal Temporal Pulse Rate (60-100) 99 97 105 H Pulse Location Monitor Monitor Monitor Respiratory Rate (12-18) 16 16 18 Respiratory rate source Observation Observation Observation Oxygen Delivery Method Room Air Room Air Room Air Blood Pressure (90/60-120/80) 132/111 H 108/70 110/74 Blood Pressure Mean (mm Hg) 118 82 86 Source Monitor Monitor Monitor Position Sitting Sitting Sitting Blood Pressure Location Right Arm Left Arm Left Arm History Since Last Visit- (Skip if this is Patient's initial visit) Have you changed medications since your No No No last visit? Any new allergies or adverse reactions No No No Had a fall/change in ADL's that may No No No increase risk of falls Signs or symptoms of abuse and/or No No No neglect since last visit Have you been in the hospital since your No No No last visit? Has dressing in place as prescribed Yes Yes Yes Has compression in place as prescribed N/A N/A Yes Has offloadiing in place as prescribed N/A Yes N/A Experienced any changes in pain level or No No No management Left Footwear Surgical Shoe Surgical Shoe Surgical Shoe with pressure with pressure with pressure relief insole relief insole relief insole Right Footwear Regular Shoe Regular Shoe Regular Shoe Pain Scale: 0-10 Numeric Is Patient Pain Free? No Yes Yes wound -Description Sharp -Intensity 3 -Duration (hours) Acute -Pain Behavior Withdrawal from Touch,Facial Grimacing -Alleviating Factors/Interventions Distraction, Will continue to monitor, Patient denies need for intervention -Comments wound painful w / cleansing/ measuring WC - Nurse 1 - General Ulcer Measurement Start: 07/17/21 13:05 Freq: Status: Active Protocol: Activity Type Activity Date Activity User E-Sign Co-Sign Detail Recorded Client Recorded Date Recorded By Document 07/17/21 13:05 KR [id number] 07/17/21 13:08 KR Document 07/18/21 10:28 [facility] [id number] 07/18/21 10:37 [facility] Document 07/25/21 10:44 MW [id number] 07/25/21 10:52 MW 07/17/21 07/18/21 07/25/21 13:05 10:28 10:44 Wound Center Nurse 1 #2 Left Foot 2,3 rd Web Space -Combined with other wound No No -Current Size (cm) - Length 1.4 2 1.8 -Current Size (cm) - Width 0.6 1.5 0.5 -Current Size (cm) - Depth 0.3 0.3 0.1 -Total Square Cm 0.84 3.0 0.90 -Photo Taken No No No -Epithelialization None Present None Present None Present -Tunneling No No No -Undermining/Tunneling No No No -Circular Undermining No No No -Exudate Amt Medium Medium Medium -Exudate Type Serosanguineous Serosanguineous Serosanguineous -Wound Margin Distinct, Distinct, Indistinct, Non Outline Outline -Visible Attached Attached -Granulation Amt Medium (34-66%) None Present (0 None Present (0 %) %) -Granulation Quality Red N/A -Slough/Fibrin Yes Yes Yes -Necrosis Amt Medium (34-66%) Large (67-100%) Large (67-100%) -Necrotic Tissue Type Adherent Slough Adherent Slough -Structure Exposed N/A -Texture (Bernadette-wound Skin Appearance) Assessed, Assessed Assessed, Scarring Localized Edema -Moisture (Bernadette-wound Skin Appearance) Assessed, Assessed Assessed, Maceration Maceration -Color (Bernadette-wound Skin Appearance) Assessed, Assessed Assessed,Rubor Erythema -Temperature (Bernadette-wound Skin No Abnormality No Abnormality No Abnormality Appearance) (Pt Warm) (Pt Warm) (Pt Warm) -Tenderness on Palpation (Bernadette-wound No Yes Yes Skin Appearance) -Ulcer Cleansing Soap and Water Rinsed/ Soap and Water Irrigated with Saline -Foul Odor after Cleansing No No No -Anesthetic Used 5% Lidocaine 4% Lidocaine 4% Lidocaine Gel Solution Solution #1 Left Foot Plantar -Combined with other wound No -Current Size (cm) - Length 0.1 -Current Size (cm) - Width 0.1 -Current Size (cm) - Depth 0.1 -Total Square Cm 0.01 -Photo Taken No -Epithelialization Large 67-100% -Tunneling No -Undermining/Tunneling No -Circular Undermining No -Exudate Amt None Present -Texture (Bernadette-wound Skin Appearance) Callus,Scarring -Moisture (Bernadette-wound Skin Appearance) Assessed,Dry/ Scaly -Color (Bernadette-wound Skin Appearance) Assessed -Temperature (Bernadette-wound Skin No Abnormality Appearance) (Pt Warm) -Tenderness on Palpation (Bernadette-wound No Skin Appearance) -Ulcer Cleansing Soap and Water -Foul Odor after Cleansing No -Anesthetic Used 5% Lidocaine Gel Lower Limb Edema Present No WC - Nurse 2 - General Ulcer CM Notes Start: 07/17/21 13:05 Freq: Status: Active Protocol: Activity Type Activity Date Activity User E-Sign Co-Sign Detail Recorded Client Recorded Date Recorded By Document 07/17/21 13:39 [id number] 07/17/21 13:41 JF Edit Time 07/18/21 13:39 JF 07/17/21 13:39=>07/18/21 13:39 [id number] 07/19/21 07:10 PL Document 07/25/21 11:17 [id number] 07/25/21 11:18 JF 07/18/21 07/25/21 13:39 11:17 Wound Center Nurse 2 #2 Left Foot 2,3 rd Web Space -Time 13:39 11:17 -Correct Patient Yes Yes -Correct Side, Site, Position Yes Yes -Correct Procedure Yes Yes -Procedure Performed Yes Yes -Type of Procedure Incision & Debridement Drainage -Clinical Debridement Subcutaneous Subcutaneous -Tissue Removed Subcutaneous Subcutaneous -Post Debridement (cm) - Length 2.0 1.8 -Post Debridement (cm) - Width 1.8 0.6 -Post Debridement (cm) - Depth 0.3 0.2 -Total Square (Post) (cm) 3.60 1.08 -Area of Debridement (cm) - Length 2.0 1.8 -Area of Debridement (cm) - Width 1.8 0.6 -Total Square (Area) (cm) 3.60 1.08 -Tunneling No No -Undermining/Tunneling No No -Circular Undermining No No -Wound/Ulcer Outcome Not Healed Not Healed -Ulcer Cleansing Rinsed/ Rinsed/ Irrigated with Irrigated with Saline Saline -Foul Odor after Cleansing No No -Bioengineered Tissue No No -Bleeding Controlled with Pressure Pressure -Treatment Response Procedure Procedure Tolerated Well Tolerated Well -Offloading Yes Yes -Type of Offloading Surgical Shoe Surgical Shoe -Debridement - Subq, 1st 20sq cm Yes Yes #1 Left Foot Plantar -Correct Patient No -Correct Side, Site, Position No -Correct Procedure No -Procedure Performed No Pain Scale: 0-10 Numeric Is Patient Pain Free? Yes Yes - Nurse 3 - General Ulcer D/C NN Start: 07/17/21 13:05 Freq: Status: Active Protocol: Activity Type Activity Date Activity User E-Sign Co-Sign Detail Recorded Client Recorded Date Recorded By Document 07/18/21 10:58 [facility] [id number] 07/18/21 10:58 [facility] Document 07/25/21 11:30 [facility] [id number] 07/25/21 11:31 [facility] 07/18/21 07/25/21 10:58 11:30 Wound Care Nurse 3 #2 Left Foot 2,3 rd Web Space -Ulcer Cleansing Rinsed/ Rinsed/ Irrigated with Irrigated with Saline Saline -Foul Odor after Cleansing No No -Primary Dressing Applied Other Promogran Glenna Matter -Other Dressing betadine -Primary Dressing Covered/Secured with Dry Gauze & Dry Gauze & Roll Gauze, Roll Gauze, Secured with Secured with Tape Tape -Other Covering drsg per mw rn DRSG PER MW RN -Promogran Glenna Matter 1 Left -Compression Wrap Mian Wrap Treatment Response Procedure Procedure Tolerated Well Tolerated Well Pain Scale: 0-10 Numeric Is Patient Pain Free? Yes Yes WC - Visit Discharge Discharge Condition Stable Stable Ambulatory Status Ambulatory Ambulatory Transportation Private Auto Private Auto Assessment/Plan Assessment/Plan (1) Cellulitis of toe of left foot: CODE(S): L03.032 - Cellulitis of left toe (2) Peripheral vascular disease, unspecified: CODE(S): I73.9 - Peripheral vascular disease, unspecified (3) Type 2 diabetes mellitus with diabetic polyneuropathy: CODE(S): E11.42 - Type 2 diabetes mellitus with diabetic polyneuropathy QUALIFIERS: Diabetes mellitus chcf insulin use: unspecified chcf insulin use status Qualified Code(s): E11.42 - Type 2 diabetes mellitus with diabetic polyneuropathy (4) Non-pressure chronic ulcer of other part of left foot with fat layer exposed: CODE(S): L97.522 - Non-pressure chronic ulcer of other part of left foot with fat layer exposed PLAN: Patient examined evaluated, all findings reyes with patient in detail. Patient has new onset onset infection to his left third digit. Patient will continue Keflex 750 twice daily. Patient's left third digital wound was excisionally debrided down to including the level of bone of all nonviable tissue using a 5 mm dermal curette. No anesthesia required due to neuropathy hemostasis obtained with light compression patient tolerated procedure well. Pre and postdebridement measurement documented notes. At this time there is limited tissue viability to the left third digit with recurrent infection, it is my recommendation that for wound healing purposes and infection clearance and return to function patient proceeds with a left third digital amputation. Patient consented for amputation of the third digit. All inherent risks benefits alternative treatment discussed with patient in detail patient agreed. Patient is undergoing evaluation via cardiac surgery tomorrow for possible intervention, this may delay amputation. Patient is in agreements at this time and we will continue dressing the site daily with Betadine and dry sterile dressing offloading with a surgical shoe. Heel weightbearing and plan for third digit amputation within the next 1 to 2 weeks. Patient will continue his antibiotics at that time and follow-up in the wound care center weekly.
[2021-08-01 10:45] VITALS: BP 143/108; PULSE 106; RESP 18; TEMP 36.8; BMI 23.8
--- NOTE | 2021-08-01 12:14 | PCM.WC.PN ---
History of Present Illness Date of Service: 08/01/21 Chief Complaint: Left 3rd toe redness History of Wound: This 60-year-old male seen for follow-up on the left foot ulceration secondary to poorly diabetic neuropathy and peripheral arterial disease. Patient underwent cardiac catheterization 1 day prior. Patient notes significant fatigue today along with occasional nausea. Per explosive ordnance specialist patient will require bypass surgery more specifically triple bypass. Patient notes worsening of his left foot infection at this time. He notes increased pain redness and swelling to the site. Denies any other constitutional symptoms. Objective Data Objective Data Vital Signs: Vital Signs Temp Pulse Resp BP 98.2 F 106 H 18 143/108 H 08/01/21 10:45 08/01/21 10:45 08/01/21 10:45 08/01/21 10:45 Oxygen Delivery Method Room Air Weight: 77.564 kg Body Mass Index (BMI) 23.8 Lab / Micro Data Micro: Microbiology 07/18/21 Unknown Wound Abcess - Left Foot Gram Stain - Final 07/18/21 Unknown Wound Abcess - Left Foot Wound Culture - Final Staphylococcus aureus Enterobacter cloacae complex Enterococcus faecalis Staphylococcus saprophyticus 07/18/21 Unknown Wound Abcess - Left Foot Anaerobic Culture - Final No anaerobic bacteria isolated. Physical Exam Narrative Patient alert oriented to person, place, and time. Patient ambulating heel weightbearing in surgical shoe left lower extremity. Vascular: Dorsalis pedis posterior tibial pulses monophasic to left lower extremity. Dorsalis pedis posterior tibial pulses right side palpable 1 out of 4. Delayed capillary fill time left lower extremity. Diminished digital hair growth. Atrophic skin changes noted. Neurologic: Light touch protective sensation absent to bilateral feet. No evidence of clonus or Babinski sign. Dermatologic full-thickness ulceration noted to the plantar third metatarsal head with significant periwound hyperkeratosis mild periwound erythema edema and warmth. Full thickness ulcerations with serous drainage to the third interspace. There is increased edema erythema warmth to the left plantar midfoot with concern for developing underlying abscess. There is pain to the site that tracks along the flexor tendons. Musculoskeletal: No wound forming deformity noted to bilateral lower extremity. Muscular strength 5 out of 5 to bilateral lower extremity compartments No pain with calf squeeze bilateral lower extremities. Debridement Note Debridement Note Post-Debridement Measurements and Additional Note: Post-Debridement Measurements/Treatment WC - Nurse 1 - General Ulcer Assessment Start: 07/17/21 13:05 Freq: Status: Active Protocol: WC.LOWEXT Activity Type Activity Date Activity User E-Sign Co-Sign Detail Recorded Client Recorded Date Recorded By Document 07/17/21 13:05 KR [id number] 07/17/21 13:08 KR Document 07/18/21 10:28 BM [id number] 07/18/21 10:37 BMF Document 07/25/21 10:44 MW [id number] 07/25/21 10:52 MW Document 08/01/21 10:45 BM [id number] 08/01/21 10:50 BMF 07/17/21 07/18/21 07/25/21 13:05 10:28 10:44 - Today's Visit Information Type of service Follow-up Visit Follow-up Visit Follow-up Visit (Physician/DIESEL TRAILER MECHANIC (Physician/DIESEL TRAILER MECHANIC (Physician/DIESEL TRAILER MECHANIC ) ) ) Arrival Mode Ambulatory Cane Ambulatory Transfer Assistance None None None Accompanied by self Patient Identification Verified (Name & Yes Yes Yes ) Patient Requires Transmission-Based No No No Precautions Safety Precautions NA Finger Stick Blood Sugar(mg/dl) (if 135 indicated): Blood Sugar Stated by Patient Height and Weight Body Mass Index (BMI) 23.8 23.8 23.8 BMI Classification Normal Normal Normal Vital Signs Temperature (97.8 F-99.1 F) 98.7 F 97.9 F 97.4 F L Temperature Source Temporal Temporal Temporal Pulse Rate (60-100) 99 97 105 H Pulse Location Monitor Monitor Monitor Respiratory Rate (12-18) 16 16 18 Respiratory rate source Observation Observation Observation Oxygen Delivery Method Room Air Room Air Room Air Blood Pressure (90/60-120/80) 132/111 H 108/70 110/74 Blood Pressure Mean (mm Hg) 118 82 86 Source Monitor Monitor Monitor Position Sitting Sitting Sitting Blood Pressure Location Right Arm Left Arm Left Arm History Since Last Visit- (Skip if this is Patient's initial visit) Have you changed medications since your No No No last visit? Any new allergies or adverse reactions No No No Had a fall/change in ADL's that may No No No increase risk of falls Signs or symptoms of abuse and/or No No No neglect since last visit Have you been in the hospital since your No No No last visit? Has dressing in place as prescribed Yes Yes Yes Has compression in place as prescribed N/A N/A Yes Has offloadiing in place as prescribed N/A Yes N/A Experienced any changes in pain level or No No No management Left Footwear Surgical Shoe Surgical Shoe Surgical Shoe with pressure with pressure with pressure relief insole relief insole relief insole Right Footwear Regular Shoe Regular Shoe Regular Shoe Pain Scale: 0-10 Numeric Is Patient Pain Free? No Yes Yes wound -Description Sharp -Intensity 3 -Duration (hours) Acute -Pain Behavior Withdrawal from Touch,Facial Grimacing -Alleviating Factors/Interventions Distraction, Will continue to monitor, Patient denies need for intervention -Comments wound painful w / cleansing/ measuring 08/01/21 10:45 WC - Today's Visit Information Type of service Follow-up Visit (Physician/DIESEL TRAILER MECHANIC ) Arrival Mode Ambulatory Transfer Assistance None Accompanied by Patient Identification Verified (Name & Yes ) Patient Requires Transmission-Based No Precautions Safety Precautions Finger Stick Blood Sugar(mg/dl) (if indicated): Blood Sugar Height and Weight Body Mass Index (BMI) 23.8 BMI Classification Normal Vital Signs Temperature (97.8 F-99.1 F) 98.2 F Temperature Source Temporal Pulse Rate (60-100) 106 H Pulse Location Monitor Respiratory Rate (12-18) 18 Respiratory rate source Observation Oxygen Delivery Method Room Air Blood Pressure (90/60-120/80) 143/108 H Blood Pressure Mean (mm Hg) 119 Source Monitor Position Sitting Blood Pressure Location Left Arm History Since Last Visit- (Skip if this is Patient's initial visit) Have you changed medications since your No last visit? Any new allergies or adverse reactions No Had a fall/change in ADL's that may No increase risk of falls Signs or symptoms of abuse and/or No neglect since last visit Have you been in the hospital since your No last visit? Has dressing in place as prescribed Yes Has compression in place as prescribed N/A Has offloadiing in place as prescribed Yes Experienced any changes in pain level or No management Left Footwear Surgical Shoe with pressure relief insole Right Footwear Regular Shoe Pain Scale: 0-10 Numeric Is Patient Pain Free? Yes wound -Description -Intensity -Duration (hours) -Pain Behavior -Alleviating Factors/Interventions -Comments - Nurse 1 - General Ulcer Measurement Start: 07/17/21 13:05 Freq: Status: Active Protocol: Activity Type Activity Date Activity User E-Sign Co-Sign Detail Recorded Client Recorded Date Recorded By Document 07/17/21 13:05 KR [id number] 07/17/21 13:08 KR Document 07/18/21 10:28 [facility] [id number] 07/18/21 10:37 BMF Document 07/25/21 10:44 MW [id number] 07/25/21 10:52 MW Document 08/01/21 10:45 BM [id number] 08/01/21 10:50 BMF 07/17/21 07/18/21 07/25/21 13:05 10:28 10:44 Wound Center Nurse 1 #2 Left Foot 2,3 rd Web Space -Combined with other wound No No -Current Size (cm) - Length 1.4 2 1.8 -Current Size (cm) - Width 0.6 1.5 0.5 -Current Size (cm) - Depth 0.3 0.3 0.1 -Total Square Cm 0.84 3.0 0.90 -Date of Last Picture (Recall this field) -Photo Taken No No No -Epithelialization None Present None Present None Present -Tunneling No No No -Undermining/Tunneling No No No -Circular Undermining No No No -Exudate Amt Medium Medium Medium -Exudate Type Serosanguineous Serosanguineous Serosanguineous -Wound Margin Distinct, Distinct, Indistinct, Non Outline Outline -Visible Attached Attached -Granulation Amt Medium (34-66%) None Present (0 None Present (0 %) %) -Granulation Quality Red N/A -Slough/Fibrin Yes Yes Yes -Necrosis Amt Medium (34-66%) Large (67-100%) Large (67-100%) -Necrotic Tissue Type Adherent Slough Adherent Slough -Structure Exposed N/A -Texture (Bernadette-wound Skin Appearance) Assessed, Assessed Assessed, Scarring Localized Edema -Moisture (Bernadette-wound Skin Appearance) Assessed, Assessed Assessed, Maceration Maceration -Color (Bernadette-wound Skin Appearance) Assessed, Assessed Assessed,Rubor Erythema -Temperature (Bernadette-wound Skin No Abnormality No Abnormality No Abnormality Appearance) (Pt Warm) (Pt Warm) (Pt Warm) -Tenderness on Palpation (Bernadette-wound No Yes Yes Skin Appearance) -Ulcer Cleansing Soap and Water Rinsed/ Soap and Water Irrigated with Saline -Foul Odor after Cleansing No No No -Anesthetic Used 5% Lidocaine 4% Lidocaine 4% Lidocaine Gel Solution Solution #1 Left Foot Plantar -Combined with other wound No -Current Size (cm) - Length 0.1 -Current Size (cm) - Width 0.1 -Current Size (cm) - Depth 0.1 -Total Square Cm 0.01 -Photo Taken No -Epithelialization Large 67-100% -Tunneling No -Undermining/Tunneling No -Circular Undermining No -Exudate Amt None Present -Texture (Bernadette-wound Skin Appearance) Callus,Scarring -Moisture (Bernadette-wound Skin Appearance) Assessed,Dry/ Scaly -Color (Bernadette-wound Skin Appearance) Assessed -Temperature (Bernadette-wound Skin No Abnormality Appearance) (Pt Warm) -Tenderness on Palpation (Bernadette-wound No Skin Appearance) -Ulcer Cleansing Soap and Water -Foul Odor after Cleansing No -Anesthetic Used 5% Lidocaine Gel Lower Limb Edema Present No 08/01/21 10:45 Wound Center Nurse 1 #2 Left Foot 2,3 rd Web Space -Combined with other wound No -Current Size (cm) - Length 0.6 -Current Size (cm) - Width 1.4 -Current Size (cm) - Depth 0.2 -Total Square Cm 0.84 -Date of Last Picture (Recall this 08/01/21 field) -Photo Taken Yes -Epithelialization None Present -Tunneling No -Undermining/Tunneling No -Circular Undermining No -Exudate Amt Small -Exudate Type Serosanguineous -Wound Margin Distinct, Outline Attached -Granulation Amt None Present (0 %) -Granulation Quality -Slough/Fibrin Yes -Necrosis Amt Large (67-100%) -Necrotic Tissue Type Adherent Slough -Structure Exposed -Texture (Bernadette-wound Skin Appearance) Assessed, Scarring -Moisture (Bernadette-wound Skin Appearance) Assessed,Dry/ Scaly -Color (Bernadette-wound Skin Appearance) Assessed -Temperature (Bernadette-wound Skin No Abnormality Appearance) (Pt Warm) -Tenderness on Palpation (Bernadette-wound No Skin Appearance) -Ulcer Cleansing Rinsed/ Irrigated with Saline -Foul Odor after Cleansing No -Anesthetic Used 5% Lidocaine Gel #1 Left Foot Plantar -Combined with other wound -Current Size (cm) - Length -Current Size (cm) - Width -Current Size (cm) - Depth -Total Square Cm -Photo Taken -Epithelialization -Tunneling -Undermining/Tunneling -Circular Undermining -Exudate Amt -Texture (Bernadette-wound Skin Appearance) -Moisture (Bernadette-wound Skin Appearance) -Color (Bernadette-wound Skin Appearance) -Temperature (Bernadette-wound Skin Appearance) -Tenderness on Palpation (Bernadette-wound Skin Appearance) -Ulcer Cleansing -Foul Odor after Cleansing -Anesthetic Used Lower Limb Edema Present WC - Nurse 2 - General Ulcer CM Notes Start: 07/17/21 13:05 Freq: Status: Active Protocol: Activity Type Activity Date Activity User E-Sign Co-Sign Detail Recorded Client Recorded Date Recorded By Document 07/17/21 13:39 [id number] 07/17/21 13:41 JF Edit Time 07/18/21 13:39 JF 07/17/21 13:39=>07/18/21 13:39 [id number] 07/19/21 07:10 Document 07/25/21 11:17 [id number] 07/25/21 11:18 JF Edit Result 07/25/21 11:17 JF (1) [id number] 07/25/21 12:04 JF Document 08/01/21 11:20 [id number] 08/01/21 11:21 JF (1) #2 Left Foot 2,3 rd Web Space - Clinical Debridement Subcutaneous => Bone - Tissue Removed Subcutaneous => Tendon,Slough - Debridement - Subq, 1st 20sq cm Yes => - Debridement - Bone, 1st 20sq cm => Yes 07/18/21 07/25/21 08/01/21 13:39 11:17 11:20 Wound Center Nurse 2 #2 Left Foot 2,3 rd Web Space -Time 13:39 11:17 -Correct Patient Yes Yes No -Correct Side, Site, Position Yes Yes No -Correct Procedure Yes Yes No -Procedure Performed Yes Yes No -Type of Procedure Incision & Debridement Drainage -Clinical Debridement Subcutaneous Bone -Tissue Removed Subcutaneous Tendon,Slough -Post Debridement (cm) - Length 2.0 1.8 -Post Debridement (cm) - Width 1.8 0.6 -Post Debridement (cm) - Depth 0.3 0.2 -Total Square (Post) (cm) 3.60 1.08 -Area of Debridement (cm) - Length 2.0 1.8 -Area of Debridement (cm) - Width 1.8 0.6 -Total Square (Area) (cm) 3.60 1.08 -Tunneling No No -Undermining/Tunneling No No -Circular Undermining No No -Wound/Ulcer Outcome Not Healed Not Healed Not Healed -Ulcer Cleansing Rinsed/ Rinsed/ Irrigated with Irrigated with Saline Saline -Foul Odor after Cleansing No No -Bioengineered Tissue No No -Bleeding Controlled with Pressure Pressure -Treatment Response Procedure Procedure Tolerated Well Tolerated Well -Offloading Yes Yes -Type of Offloading Surgical Shoe Surgical Shoe -Debridement - Subq, 1st 20sq cm Yes -Debridement - Bone, 1st 20sq cm Yes #1 Left Foot Plantar -Correct Patient No -Correct Side, Site, Position No -Correct Procedure No -Procedure Performed No Pain Scale: 0-10 Numeric Is Patient Pain Free? Yes Yes No wound -Description Sharp -Intensity 5 -Pain Behavior Facial Grimacing -Pain Aggravating Factors Walking -Alleviating Factors/Interventions Medication WC - Nurse 3 - General Ulcer D/C NN Start: 07/17/21 13:05 Freq: Status: Active Protocol: Activity Type Activity Date Activity User E-Sign Co-Sign Detail Recorded Client Recorded Date Recorded By Document 07/18/21 10:58 [facility] [id number] 07/18/21 10:58 [facility] Document 07/25/21 11:30 [facility] [id number] 07/25/21 11:31 [facility] Document 08/01/21 11:21 [id number] 08/01/21 11:22 JF 07/18/21 07/25/21 08/01/21 10:58 11:30 11:21 Wound Care Nurse 3 #2 Left Foot 2,3 rd Web Space -Ulcer Cleansing Rinsed/ Rinsed/ Rinsed/ Irrigated with Irrigated with Irrigated with Saline Saline Saline -Foul Odor after Cleansing No No No -Primary Dressing Applied Other Promogran Glenna Matter -Other Dressing betadine betadine -Primary Dressing Covered/Secured with Dry Gauze & Dry Gauze & Dry Gauze & Roll Gauze, Roll Gauze, Roll Gauze, Secured with Secured with Secured with Tape Tape Tape -Other Covering maggie per da rn MAGGIE PER DA RN -Promogran Glenna Matter 1 Left -Compression Wrap Mian Wrap Treatment Response Procedure Procedure Tolerated Well Tolerated Well Pain Scale: 0-10 Numeric Is Patient Pain Free? Yes Yes Yes WC - Visit Discharge Discharge Condition Stable Stable Stable Ambulatory Status Ambulatory Ambulatory Wheelchair Transportation Private Auto Private Auto Private Auto Accompanied by Medication Reconcilliation completed & Yes provided to patient/care provider Clinical Summary of Care Provided Yes Notes: patient is going home to shower and then will be direct admit to [facility] for increase pain to left leg and possible infection to plantar left foot. Assessment/Plan Assessment/Plan (1) Cellulitis of toe of left foot: CODE(S): L03.032 - Cellulitis of left toe (2) Peripheral vascular disease, unspecified: CODE(S): I73.9 - Peripheral vascular disease, unspecified (3) Type 2 diabetes mellitus with diabetic polyneuropathy: CODE(S): E11.42 - Type 2 diabetes mellitus with diabetic polyneuropathy QUALIFIERS: Diabetes mellitus fci insulin use: unspecified exterminator insulin use status Qualified Code(s): E11.42 - Type 2 diabetes mellitus with diabetic polyneuropathy (4) Non-pressure chronic ulcer of other part of left foot with fat layer exposed: CODE(S): L97.522 - Non-pressure chronic ulcer of other part of left foot with fat layer exposed PLAN: Patient examined evaluated, all findings reyes with patient in detail. Patient awaiting cardiac bypass per patternmaker helper patient can undergo procedure under local anesthesia. Wound was excisionally debrided down to including level of tendon at this time. All nonviable tissue was removed was performed with a dermal curette. Anesthesia not required due to it neuropathy. Hemostasis obtained with light compression. Oral consent was obtained prior to procedure and patient tolerated procedure well. I have concern for developing abscess to the left foot we were planning to initially amputate the third digit; however, I am concerned for progression of this infection at this time. I recommend hospital admission for MRI and consideration for incision and drainage and amputation of his left third digit. Will follow the patient closely but he was to go to the hospital for admission at this time.
[2021-08-15 08:16] VITALS: BP 119/71; PULSE 84; RESP 16; TEMP 36.3; BMI 23.8
--- NOTE | 2021-08-15 08:44 | PCM.WC.PN ---
History of Present Illness Date of Service: 08/15/21 Chief Complaint: Left 3rd toe redness History of Wound: This 60-year-old male seen 1.5 weeks postop from left foot partial third ray amputation (open) and incision and drainage left plantar midfoot. Patient is receiving IV antibiotics via PICC line being managed by infectious disease. Patient notes significant fatigue but denies any other constitutional symptoms. Patient notes home health care has been changing wound VAC every couple days. Patient has been nonweightbearing for the most part in a wheelchair but admits to transferring the heel weightbearing in surgical shoe. Patient has pain to his left lower extremity limited to the ulceration sites. Patient denies any worsening at this time. Objective Data Objective Data Vital Signs: Vital Signs Temp Pulse Resp BP 97.4 F L 84 16 119/71 08/15/21 08:16 08/15/21 08:16 08/15/21 08:16 08/15/21 08:16 Oxygen Delivery Method Room Air Weight: 77.564 kg Body Mass Index (BMI) 23.8 Lab / Micro Data Micro: Microbiology 07/18/21 Unknown Wound Abcess - Left Foot Gram Stain - Final 07/18/21 Unknown Wound Abcess - Left Foot Wound Culture - Final Staphylococcus aureus Enterobacter cloacae complex Enterococcus faecalis Staphylococcus saprophyticus 07/18/21 Unknown Wound Abcess - Left Foot Anaerobic Culture - Final No anaerobic bacteria isolated. Physical Exam Narrative Patient alert oriented to person, place, and time. Patient ambulating heel weightbearing in surgical shoe left lower extremity. Vascular: Dorsalis pedis posterior tibial pulses monophasic to left lower extremity. Dorsalis pedis posterior tibial pulses right side palpable 1 out of 4. Delayed capillary fill time left lower extremity. Diminished digital hair growth. Atrophic skin changes noted. Neurologic: Light touch protective sensation absent to bilateral feet. No evidence of clonus or Babinski sign. Dermatologic: Partial third ray resection to the left foot demonstrates a fibrotic base with minimal drainage atrophic skin edges and necrosis extending to the fourth digit. Full-thickness ulceration to plantar midfoot at site of incision demonstrates significant dry necrosis to the periincisional area. No obvious signs of infection at this time. Resolved edema and erythema. No focal increase in warmth. Musculoskeletal: No wound forming deformity noted to bilateral lower extremity. Muscular strength 5 out of 5 to bilateral lower extremity compartments No pain with calf squeeze bilateral lower extremities. Debridement Note Debridement Note Post-Debridement Measurements and Additional Note: Post-Debridement Measurements/Treatment - Nurse 1 - General Ulcer Assessment Start: 07/17/21 13:05 Freq: Status: Active Protocol: MONICA Activity Type Activity Date Activity User E-Sign Co-Sign Detail Recorded Client Recorded Date Recorded By Document 07/17/21 13:05 KR [id number] 07/17/21 13:08 KR Document 07/18/21 10:28 [facility] [id number] 07/18/21 10:37 BMF Document 07/25/21 10:44 MW [id number] 07/25/21 10:52 MW Document 08/01/21 10:45 BMF [id number] 08/01/21 10:50 BMF Document 08/15/21 08:16 BMF [id number] 08/15/21 08:24 BMF 07/17/21 07/18/21 07/25/21 13:05 10:28 10:44 - Today's Visit Information Type of service Follow-up Visit Follow-up Visit Follow-up Visit (Physician/TRADING MANAGER (Physician/TRADING MANAGER (Physician/TRADING MANAGER ) ) ) Arrival Mode Ambulatory Cane Ambulatory Transfer Assistance None None None Transfer Assist (Other) Accompanied by self Patient Identification Verified (Name & Yes Yes Yes ) Patient Requires Transmission-Based No No No Precautions Safety Precautions NA Finger Stick Blood Sugar(mg/dl) (if 135 indicated): Blood Sugar Stated by Patient Height and Weight Body Mass Index (BMI) 23.8 23.8 23.8 BMI Classification Normal Normal Normal Vital Signs Temperature (97.8 F-99.1 F) 98.7 F 97.9 F 97.4 F L Temperature Source Temporal Temporal Temporal Pulse Rate (60-100) 99 97 105 H Pulse Location Monitor Monitor Monitor Respiratory Rate (12-18) 16 16 18 Respiratory rate source Observation Observation Observation Oxygen Delivery Method Room Air Room Air Room Air Blood Pressure (90/60-120/80) 132/111 H 108/70 110/74 Blood Pressure Mean (mm Hg) 118 82 86 Source Monitor Monitor Monitor Position Sitting Sitting Sitting Blood Pressure Location Right Arm Left Arm Left Arm History Since Last Visit- (Skip if this is Patient's initial visit) Have you changed medications since your No No No last visit? Any new allergies or adverse reactions No No No Had a fall/change in ADL's that may No No No increase risk of falls Signs or symptoms of abuse and/or No No No neglect since last visit Have you been in the hospital since your No No No last visit? Has dressing in place as prescribed Yes Yes Yes Has compression in place as prescribed N/A N/A Yes Has offloadiing in place as prescribed N/A Yes N/A Experienced any changes in pain level or No No No management Left Footwear Surgical Shoe Surgical Shoe Surgical Shoe with pressure with pressure with pressure relief insole relief insole relief insole Right Footwear Regular Shoe Regular Shoe Regular Shoe Pain Scale: 0-10 Numeric Is Patient Pain Free? No Yes Yes wound -Description Sharp -Intensity 3 -Duration (hours) Acute -Pain Behavior Withdrawal from Touch,Facial Grimacing -Alleviating Factors/Interventions Distraction, Will continue to monitor, Patient denies need for intervention -Comments wound painful w / cleansing/ measuring 08/01/21 08/15/21 10:45 08:16 WC - Today's Visit Information Type of service Follow-up Visit Follow-up Visit (Physician/TRADING MANAGER (Physician/TRADING MANAGER ) ) Arrival Mode Ambulatory Wheelchair Transfer Assistance None Other Transfer Assist (Other) stand by Accompanied by father Patient Identification Verified (Name & Yes Yes ) Patient Requires Transmission-Based No No Precautions Safety Precautions Finger Stick Blood Sugar(mg/dl) (if indicated): Blood Sugar Height and Weight Body Mass Index (BMI) 23.8 23.8 BMI Classification Normal Normal Vital Signs Temperature (97.8 F-99.1 F) 98.2 F 97.4 F L Temperature Source Temporal Temporal Pulse Rate (60-100) 106 H 84 Pulse Location Monitor Monitor Respiratory Rate (12-18) 18 16 Respiratory rate source Observation Observation Oxygen Delivery Method Room Air Room Air Blood Pressure (90/60-120/80) 143/108 H 119/71 Blood Pressure Mean (mm Hg) 119 87 Source Monitor Monitor Position Sitting Sitting Blood Pressure Location Left Arm Left Arm History Since Last Visit- (Skip if this is Patient's initial visit) Have you changed medications since your No No last visit? Any new allergies or adverse reactions No No Had a fall/change in ADL's that may No No increase risk of falls Signs or symptoms of abuse and/or No No neglect since last visit Have you been in the hospital since your No No last visit? Has dressing in place as prescribed Yes Yes Has compression in place as prescribed N/A N/A Has offloadiing in place as prescribed Yes Yes Experienced any changes in pain level or No No management Left Footwear Surgical Shoe Surgical Shoe with pressure with pressure relief insole relief insole Right Footwear Regular Shoe Regular Shoe Pain Scale: 0-10 Numeric Is Patient Pain Free? Yes Yes wound -Description -Intensity -Duration (hours) -Pain Behavior -Alleviating Factors/Interventions -Comments WC - Nurse 1 - General Ulcer Measurement Start: 07/17/21 13:05 Freq: Status: Active Protocol: Activity Type Activity Date Activity User E-Sign Co-Sign Detail Recorded Client Recorded Date Recorded By Document 07/17/21 13:05 [id number] 07/17/21 13:08 KR Document 07/18/21 10:28 [facility] [id number] 07/18/21 10:37 BMF Document 07/25/21 10:44 MW [id number] 07/25/21 10:52 MW Document 08/01/21 10:45 BMF [id number] 08/01/21 10:50 BMF Document 08/15/21 08:16 BMF [id number] 08/15/21 08:24 BMF 07/17/21 07/18/21 07/25/21 13:05 10:28 10:44 Wound Center Nurse 1 #4- L PLANTAR FOOT -Combined with other wound -Current Size (cm) - Length -Current Size (cm) - Width -Current Size (cm) - Depth -Total Square Cm -Date of Last Picture (Recall this field) -Photo Taken -Epithelialization -Tunneling -Tunneling Position (O'clock) -Tunneling Distance (cm) -Undermining/Tunneling -Circular Undermining -Exudate Amt -Exudate Type -Wound Margin -Granulation Amt -Granulation Quality -Slough/Fibrin -Necrosis Amt -Necrotic Tissue Type -Texture (Bernadette-wound Skin Appearance) -Moisture (Bernadette-wound Skin Appearance) -Color (Bernadette-wound Skin Appearance) -Temperature (Bernadette-wound Skin Appearance) -Tenderness on Palpation (Bernadette-wound Skin Appearance) -Ulcer Cleansing -Foul Odor after Cleansing -Anesthetic Used #3- L FOOT 3RD TOE AMP SITE (POST OP) -Combined with other wound -Current Size (cm) - Length -Current Size (cm) - Width -Current Size (cm) - Depth -Total Square Cm -Date of Last Picture (Recall this field) -Photo Taken -Epithelialization -Tunneling -Undermining/Tunneling -Circular Undermining -Exudate Amt -Exudate Type -Wound Margin -Granulation Amt -Granulation Quality -Slough/Fibrin -Necrosis Amt -Necrotic Tissue Type -Texture (Bernadette-wound Skin Appearance) -Moisture (Bernadette-wound Skin Appearance) -Color (Bernadette-wound Skin Appearance) -Temperature (Bernadette-wound Skin Appearance) -Tenderness on Palpation (Bernadette-wound Skin Appearance) -Ulcer Cleansing -Foul Odor after Cleansing -Anesthetic Used #2 Left Foot 2,3 rd Web Space -Combined with other wound No No -Current Size (cm) - Length 1.4 2 1.8 -Current Size (cm) - Width 0.6 1.5 0.5 -Current Size (cm) - Depth 0.3 0.3 0.1 -Total Square Cm 0.84 3.0 0.90 -Date of Last Picture (Recall this field) -Photo Taken No No No -Epithelialization None Present None Present None Present -Tunneling No No No -Undermining/Tunneling No No No -Circular Undermining No No No -Exudate Amt Medium Medium Medium -Exudate Type Serosanguineous Serosanguineous Serosanguineous -Wound Margin Distinct, Distinct, Indistinct, Non Outline Outline -Visible Attached Attached -Granulation Amt Medium (34-66%) None Present (0 None Present (0 %) %) -Granulation Quality Red N/A -Slough/Fibrin Yes Yes Yes -Necrosis Amt Medium (34-66%) Large (67-100%) Large (67-100%) -Necrotic Tissue Type Adherent Slough Adherent Slough -Structure Exposed N/A -Texture (Bernadette-wound Skin Appearance) Assessed, Assessed Assessed, Scarring Localized Edema -Moisture (Bernadette-wound Skin Appearance) Assessed, Assessed Assessed, Maceration Maceration -Color (Bernadette-wound Skin Appearance) Assessed, Assessed Assessed,Rubor Erythema -Temperature (Bernadette-wound Skin No Abnormality No Abnormality No Abnormality Appearance) (Pt Warm) (Pt Warm) (Pt Warm) -Tenderness on Palpation (Bernadette-wound No Yes Yes Skin Appearance) -Ulcer Cleansing Soap and Water Rinsed/ Soap and Water Irrigated with Saline -Foul Odor after Cleansing No No No -Anesthetic Used 5% Lidocaine 4% Lidocaine 4% Lidocaine Gel Solution Solution #1 Left Foot Plantar -Combined with other wound No -Current Size (cm) - Length 0.1 -Current Size (cm) - Width 0.1 -Current Size (cm) - Depth 0.1 -Total Square Cm 0.01 -Photo Taken No -Epithelialization Large 67-100% -Tunneling No -Undermining/Tunneling No -Circular Undermining No -Exudate Amt None Present -Texture (Bernadette-wound Skin Appearance) Callus,Scarring -Moisture (Bernadette-wound Skin Appearance) Assessed,Dry/ Scaly -Color (Bernadette-wound Skin Appearance) Assessed -Temperature (Bernadette-wound Skin No Abnormality Appearance) (Pt Warm) -Tenderness on Palpation (Bernadette-wound No Skin Appearance) -Ulcer Cleansing Soap and Water -Foul Odor after Cleansing No -Anesthetic Used 5% Lidocaine Gel Lower Limb Edema Present No 08/01/21 08/15/21 10:45 08:16 Wound Center Nurse 1 #4- L PLANTAR FOOT -Combined with other wound No -Current Size (cm) - Length 2 -Current Size (cm) - Width 3.4 -Current Size (cm) - Depth 1.9 -Total Square Cm 6.8 -Date of Last Picture (Recall this 08/15/21 field) -Photo Taken Yes -Epithelialization None Present -Tunneling Yes -Tunneling Position (O'clock) 6 -Tunneling Distance (cm) 2.1 -Undermining/Tunneling No -Circular Undermining No -Exudate Amt Medium -Exudate Type Serosanguineous -Wound Margin Distinct, Outline Attached -Granulation Amt Small (1-33%) -Granulation Quality Red -Slough/Fibrin Yes -Necrosis Amt Large (67-100%) -Necrotic Tissue Type Adherent Slough -Texture (Bernadette-wound Skin Appearance) Assessed, Scarring -Moisture (Bernadette-wound Skin Appearance) Assessed, Maceration -Color (Bernadette-wound Skin Appearance) Assessed,Palor -Temperature (Bernadette-wound Skin No Abnormality Appearance) (Pt Warm) -Tenderness on Palpation (Bernadette-wound No Skin Appearance) -Ulcer Cleansing Soap and Water -Foul Odor after Cleansing No -Anesthetic Used 4% Lidocaine Solution #3- L FOOT 3RD TOE AMP SITE (POST OP) -Combined with other wound No -Current Size (cm) - Length 5.1 -Current Size (cm) - Width 1.6 -Current Size (cm) - Depth 3.6 -Total Square Cm 8.16 -Date of Last Picture (Recall this 08/15/21 field) -Photo Taken Yes -Epithelialization None Present -Tunneling No -Undermining/Tunneling No -Circular Undermining No -Exudate Amt Medium -Exudate Type Serosanguineous -Wound Margin Distinct, Outline Attached -Granulation Amt Small (1-33%) -Granulation Quality Red -Slough/Fibrin Yes -Necrosis Amt Large (67-100%) -Necrotic Tissue Type Adherent Slough -Texture (Bernadette-wound Skin Appearance) Assessed, Scarring -Moisture (Bernadette-wound Skin Appearance) Assessed, Maceration -Color (Bernadette-wound Skin Appearance) Assessed, Erythema,Palor -Temperature (Bernadette-wound Skin No Abnormality Appearance) (Pt Warm) -Tenderness on Palpation (Bernadette-wound Yes Skin Appearance) -Ulcer Cleansing Soap and Water -Foul Odor after Cleansing No -Anesthetic Used 4% Lidocaine Solution #2 Left Foot 2,3 rd Web Space -Combined with other wound No -Current Size (cm) - Length 0.6 -Current Size (cm) - Width 1.4 -Current Size (cm) - Depth 0.2 -Total Square Cm 0.84 -Date of Last Picture (Recall this 08/01/21 field) -Photo Taken Yes -Epithelialization None Present -Tunneling No -Undermining/Tunneling No -Circular Undermining No -Exudate Amt Small -Exudate Type Serosanguineous -Wound Margin Distinct, Outline Attached -Granulation Amt None Present (0 %) -Granulation Quality -Slough/Fibrin Yes -Necrosis Amt Large (67-100%) -Necrotic Tissue Type Adherent Slough -Structure Exposed -Texture (Bernadette-wound Skin Appearance) Assessed, Scarring -Moisture (Bernadette-wound Skin Appearance) Assessed,Dry/ Scaly -Color (Bernadette-wound Skin Appearance) Assessed -Temperature (Bernadette-wound Skin No Abnormality Appearance) (Pt Warm) -Tenderness on Palpation (Bernadette-wound No Skin Appearance) -Ulcer Cleansing Rinsed/ Irrigated with Saline -Foul Odor after Cleansing No -Anesthetic Used 5% Lidocaine Gel #1 Left Foot Plantar -Combined with other wound -Current Size (cm) - Length -Current Size (cm) - Width -Current Size (cm) - Depth -Total Square Cm -Photo Taken -Epithelialization -Tunneling -Undermining/Tunneling -Circular Undermining -Exudate Amt -Texture (Bernadette-wound Skin Appearance) -Moisture (Bernadette-wound Skin Appearance) -Color (Bernadette-wound Skin Appearance) -Temperature (Bernadette-wound Skin Appearance) -Tenderness on Palpation (Bernadette-wound Skin Appearance) -Ulcer Cleansing -Foul Odor after Cleansing -Anesthetic Used Lower Limb Edema Present WC - Nurse 2 - General Ulcer CM Notes Start: 07/17/21 13:05 Freq: Status: Active Protocol: Activity Type Activity Date Activity User E-Sign Co-Sign Detail Recorded Client Recorded Date Recorded By Document 07/17/21 13:39 [id number] 07/17/21 13:41 Edit Time 07/18/21 13:39 JF 07/17/21 13:39=>07/18/21 13:39 [id number] 07/19/21 07:10 Document 07/25/21 11:17 [id number] 07/25/21 11:18 JF Edit Result 07/25/21 11:17 JF (1) [id number] 07/25/21 12:04 Document 08/01/21 11:20 [id number] 08/01/21 11:21 Document 08/15/21 08:38 [id number] 08/15/21 08:42 JF (1) #2 Left Foot 2,3 rd Web Space - Clinical Debridement Subcutaneous => Bone - Tissue Removed Subcutaneous => Tendon,Slough - Debridement - Subq, 1st 20sq cm Yes => - Debridement - Bone, 1st 20sq cm => Yes 07/18/21 07/25/21 08/01/21 13:39 11:17 11:20 Wound Center Nurse 2 #4- L PLANTAR FOOT -Correct Patient -Correct Side, Site, Position -Correct Procedure -Procedure Performed -Wound/Ulcer Outcome #3- L FOOT 3RD TOE AMP SITE (POST OP) -Correct Patient -Correct Side, Site, Position -Correct Procedure -Procedure Performed -Wound/Ulcer Outcome #2 Left Foot 2,3 rd Web Space -Time 13:39 11:17 -Correct Patient Yes Yes No -Correct Side, Site, Position Yes Yes No -Correct Procedure Yes Yes No -Procedure Performed Yes Yes No -Type of Procedure Incision & Debridement Drainage -Clinical Debridement Subcutaneous Bone -Tissue Removed Subcutaneous Tendon,Slough -Post Debridement (cm) - Length 2.0 1.8 -Post Debridement (cm) - Width 1.8 0.6 -Post Debridement (cm) - Depth 0.3 0.2 -Total Square (Post) (cm) 3.60 1.08 -Area of Debridement (cm) - Length 2.0 1.8 -Area of Debridement (cm) - Width 1.8 0.6 -Total Square (Area) (cm) 3.60 1.08 -Tunneling No No -Undermining/Tunneling No No -Circular Undermining No No -Wound/Ulcer Outcome Not Healed Not Healed Not Healed -Ulcer Cleansing Rinsed/ Rinsed/ Irrigated with Irrigated with Saline Saline -Foul Odor after Cleansing No No -Bioengineered Tissue No No -Bleeding Controlled with Pressure Pressure -Treatment Response Procedure Procedure Tolerated Well Tolerated Well -Offloading Yes Yes -Type of Offloading Surgical Shoe Surgical Shoe -Debridement - Subq, 1st 20sq cm Yes -Debridement - Bone, 1st 20sq cm Yes #1 Left Foot Plantar -Correct Patient No -Correct Side, Site, Position No -Correct Procedure No -Procedure Performed No Pain Scale: 0-10 Numeric Is Patient Pain Free? Yes Yes No wound -Description Sharp -Intensity 5 -Pain Behavior Facial Grimacing -Pain Aggravating Factors Walking -Alleviating Factors/Interventions Medication 08/15/21 08:38 Wound Center Nurse 2 #4- L PLANTAR FOOT -Correct Patient No -Correct Side, Site, Position No -Correct Procedure No -Procedure Performed No -Wound/Ulcer Outcome Not Healed #3- L FOOT 3RD TOE AMP SITE (POST OP) -Correct Patient No -Correct Side, Site, Position No -Correct Procedure No -Procedure Performed No -Wound/Ulcer Outcome Not Healed #2 Left Foot 2,3 rd Web Space -Time -Correct Patient -Correct Side, Site, Position -Correct Procedure -Procedure Performed -Type of Procedure -Clinical Debridement -Tissue Removed -Post Debridement (cm) - Length -Post Debridement (cm) - Width -Post Debridement (cm) - Depth -Total Square (Post) (cm) -Area of Debridement (cm) - Length -Area of Debridement (cm) - Width -Total Square (Area) (cm) -Tunneling -Undermining/Tunneling -Circular Undermining -Wound/Ulcer Outcome -Ulcer Cleansing -Foul Odor after Cleansing -Bioengineered Tissue -Bleeding Controlled with -Treatment Response -Offloading -Type of Offloading -Debridement - Subq, 1st 20sq cm -Debridement - Bone, 1st 20sq cm #1 Left Foot Plantar -Correct Patient -Correct Side, Site, Position -Correct Procedure -Procedure Performed Pain Scale: 0-10 Numeric Is Patient Pain Free? Yes wound -Description -Intensity -Pain Behavior -Pain Aggravating Factors -Alleviating Factors/Interventions WC - Nurse 3 - General Ulcer D/C NN Start: 07/17/21 13:05 Freq: Status: Active Protocol: Activity Type Activity Date Activity User E-Sign Co-Sign Detail Recorded Client Recorded Date Recorded By Document 07/18/21 10:58 [facility] [id number] 07/18/21 10:58 [facility] Document 07/25/21 11:30 [facility] [id number] 07/25/21 11:31 [facility] Document 08/01/21 11:21 [id number] 08/01/21 11:22 07/18/21 07/25/21 08/01/21 10:58 11:30 11:21 Wound Care Nurse 3 #2 Left Foot 2,3 rd Web Space -Ulcer Cleansing Rinsed/ Rinsed/ Rinsed/ Irrigated with Irrigated with Irrigated with Saline Saline Saline -Foul Odor after Cleansing No No No -Primary Dressing Applied Other Promogran Glenna Matter -Other Dressing betadine betadine -Primary Dressing Covered/Secured with Dry Gauze & Dry Gauze & Dry Gauze & Roll Gauze, Roll Gauze, Roll Gauze, Secured with Secured with Secured with Tape Tape Tape -Other Covering drsg per mw rn DRSG PER MW RN -Promogran Glenna Matter 1 Left -Compression Wrap Mian Wrap Treatment Response Procedure Procedure Tolerated Well Tolerated Well Pain Scale: 0-10 Numeric Is Patient Pain Free? Yes Yes Yes WC - Visit Discharge Discharge Condition Stable Stable Stable Ambulatory Status Ambulatory Ambulatory Wheelchair Transportation Private Auto Private Auto Private Auto Accompanied by Medication Reconcilliation completed & Yes provided to patient/care provider Clinical Summary of Care Provided Yes Notes: patient is going home to shower and then will be direct admit to [facility] for increase pain to left leg and possible infection to plantar left foot. Assessment/Plan Assessment/Plan (1) Cellulitis of toe of left foot: CODE(S): L03.032 - Cellulitis of left toe (2) Peripheral vascular disease, unspecified: CODE(S): I73.9 - Peripheral vascular disease, unspecified (3) Type 2 diabetes mellitus with diabetic polyneuropathy: CODE(S): E11.42 - Type 2 diabetes mellitus with diabetic polyneuropathy QUALIFIERS: Diabetes mellitus medical terminologist insulin use: unspecified medical terminologist insulin use status Qualified Code(s): E11.42 - Type 2 diabetes mellitus with diabetic polyneuropathy (4) Non-pressure chronic ulcer of other part of left foot with fat layer exposed: CODE(S): L97.522 - Non-pressure chronic ulcer of other part of left foot with fat layer exposed PLAN: Patient examined evaluated, all findings reyes with patient in detail. Patient is 1.5 weeks postop from left partial third ray resection and incision and drainage left plantar midfoot. The wounds appear to be deteriorating at this time and do not demonstrate any significant signs of wound healing potential. In the hospital setting patient demonstrated minimal bleeding upon operative treatment. The patient is awaiting coronary artery bypass. It is my recommendation to proceed with this as the patient demonstrates no residual signs of infection to his left foot. His left foot wound will likely not heal until additional revascularization attempt or more proximal amputation is performed such as below-knee amputation. This was discussed with the patient in great detail. Patient understands risks. Patient is following up with Dr. Maciel on Saturday of this week we will further evaluate the site. I recommended reaching out to cardiac surgery for evaluation of CABG. We will discontinue the wound VAC at this time and plan to pack the wound sites with Dakin soaked gauze and dry sterile dressing. Patient should continue nonweightbearing via wheelchair and transfers using his heel. Follow-up in 1 week. Again this is a limb salvage case patient is a significant vasculopath with significant peripheral arterial disease and coronary artery disease. Any additional debridement or amputation on my side but likely will lead to additional skin necrosis and tissue loss. At this time we are observing mainly for any residual signs or symptoms of infection. Patient may require more proximal amputation if revascularization cannot be performed.
== END 2021-08-15 23:59 | disposition home or self-care (01) ==
LOC: WC 08:15
PROVIDERS: PCP Student in an Organized Health Care Education/Training Program; Visit Provider Podiatrist
DX: E11.628 Type 2 diabetes mellitus with other skin complications (principal); E11.621 Type 2 diabetes mellitus with foot ulcer; E11.51 Type 2 diabetes mellitus with diabetic peripheral angiopathy without gangrene; L97.522 Non-pressure chronic ulcer of other part of left foot with fat layer exposed; E11.42 Type 2 diabetes mellitus with diabetic polyneuropathy; Z79.4 Long term (current) use of insulin; M79.605 Pain in left leg; L03.032 Cellulitis of left toe; R19.7 Diarrhea, unspecified; R53.83 Other fatigue
CPT/HCPCS: 11042; 11044; 87070; 87075; 87077; 87186; 87205; 87640; 99213; G0463

== ENCOUNTER → 2021-08-15 | Outpatient (CLI) | payer OTHER, SELFPAY ==
[2021-08-15 11:55] VITALS: BP 113/73; PULSE 81; RESP 16; TEMP 36.9; O2SAT 94
== END | disposition home or self-care (01) ==
LOC: MEDOUTP 09:08
PROVIDERS: PCP Student in an Organized Health Care Education/Training Program; Referring Provider Internal Medicine Infectious Disease; Visit Provider Internal Medicine Infectious Disease
DX: M86.8X7 Other osteomyelitis, ankle and foot (principal)
CPT/HCPCS: 96365; 96367; J0878; J7050; A4216; J3490

== ENCOUNTER → 2021-08-16 | Outpatient (CLI) | payer OTHER, SELFPAY ==
[2021-08-16 10:48] VITALS: BP 100/59; PULSE 71; RESP 16; TEMP 36.5; O2SAT 97
[2021-08-16 13:08] VITALS: BP 100/68; PULSE 83; RESP 16; O2SAT 98
== END | disposition home or self-care (01) ==
LOC: MEDOUTP 10:26
PROVIDERS: PCP Student in an Organized Health Care Education/Training Program; Referring Provider Internal Medicine Infectious Disease; Visit Provider Internal Medicine Infectious Disease
DX: M86.172 Other acute osteomyelitis, left ankle and foot (principal)
CPT/HCPCS: 96365; 96367; J0878; J7050; A4216; J3490

== ENCOUNTER → 2021-08-17 | Outpatient (CLI) | payer OTHER, SELFPAY ==
[2021-08-17 09:05] VITALS: BP 84/60; PULSE 75; RESP 16; TEMP 35.9; O2SAT 97; BMI 23.3
[2021-08-17 11:15] VITALS: BP 98/62; PULSE 72
== END | disposition home or self-care (01) ==
LOC: MEDOUTP 08:50
PROVIDERS: PCP Student in an Organized Health Care Education/Training Program; Referring Provider Internal Medicine Infectious Disease; Visit Provider Internal Medicine Infectious Disease
DX: M86.172 Other acute osteomyelitis, left ankle and foot (principal)
CPT/HCPCS: 96365; 96367; J0878; J7050; A4216; J3490

== ENCOUNTER → 2021-08-18 | Outpatient (CLI) | payer OTHER, SELFPAY ==
[2021-08-18 09:20] VITALS: BP 102/62; PULSE 73; RESP 16; TEMP 36.2; O2SAT 96
[2021-08-18 09:24] LABS: Hematocrit 35.1 % (40-54); Hemoglobin 10.9 g/dL (13.0-16.5); Mean Corp Hgb Conc 31.1 g/dL (32-36); Mean Corpuscular Hgb 29.7 pg (27.0-32.0); Mean Corpuscular Volume 95.6 fL (80-94); Mean Platelet Vol. 8.7 fl (6.2-12.0); Platelet Count 434 K/mm3 (150-450); RBC Distribution Width CV 13.2 % (11.6-14.6); RBC Distribution Width SD 46.5 fl (35.1-43.9); Red Blood Count 3.67 M/mm3 (4.6-6.2); White Blood Count 9.5 K/mm3 (4.4-11.0)
[2021-08-18 09:25] LABS: Erythrocyte Sedimentation Rate 66 mm/hr (0-20)
[2021-08-18 09:34] LABS: AST(SGOT) 11 U/L (15-37); Alanine Aminotransfer ALT/SGPT 16 U/L (16-61); Albumin, Serum 2.3 g/dL (3.2-5.0); Alkaline Phosphatase 85 U/L (45-117); Anion Gap 5 (5-15); BUN 21 mg/dL (7-18); BUN/Creat Ratio 25.3 RATIO (10-20); Bilirubin, Direct 0.08 mg/dL (0.00-0.30); CPK Total, Creatine Kinase 38 U/L (39-308); Calcium,Total 8.8 mg/dL (8.5-10.1); Chloride 109 mmol/L (98-107); Creatinine, Serum 0.83 mg/dL (0.70-1.30); EST Glomerular Filtration Rate 101 mL/min (>60); Est Glom Filt Rate - Afr Amer 122 mL/min (>60); Glucose 177 mg/dL (74-106); Potassium 4.3 mmol/L (3.5-5.1); Protein, Total 7.3 g/dL (6.4-8.2); Sodium Level 140 mmol/L (136-145)
[2021-08-18 10:11] VITALS: BP 105/68; PULSE 71; RESP 14; TEMP 35.8; O2SAT 98
[2021-08-18 11:15] VITALS: BP 116/74; PULSE 74; RESP 14; TEMP 35.8
== END | disposition home or self-care (01) ==
LOC: MEDOUTP 08:54
PROVIDERS: PCP Student in an Organized Health Care Education/Training Program; Referring Provider Internal Medicine Infectious Disease; Visit Provider Internal Medicine Infectious Disease
DX: M86.172 Other acute osteomyelitis, left ankle and foot (principal)
CPT/HCPCS: 96365; 36592; 80048; 80076; 82550; 85027; 85652; 96367; J0878; J7050; A4216; J3490

== ENCOUNTER 2021-08-19 08:51 | Outpatient (CLI) | payer OTHER, SELFPAY | END 2021-08-19 11:13 | disposition home or self-care (01) | LOC: MEDOUTP 08:51 → PCU 08:52 | PROVIDERS: PCP Student in an Organized Health Care Education/Training Program; Referring Provider Internal Medicine Infectious Disease; Visit Provider Internal Medicine Infectious Disease | DX: M86.172 Other acute osteomyelitis, left ankle and foot (principal) | CPT/HCPCS: 96365; 96366; 96367; J0878; J3490 ==

== ENCOUNTER 2021-08-20 08:45 | Outpatient (CLI) | payer OTHER, SELFPAY | END 2021-08-20 09:58 | disposition home or self-care (01) | LOC: MEDOUTP 08:45 → PCU 08:46 | PROVIDERS: PCP Student in an Organized Health Care Education/Training Program; Referring Provider Internal Medicine Infectious Disease; Visit Provider Internal Medicine Infectious Disease | DX: M86.172 Other acute osteomyelitis, left ankle and foot (principal) | CPT/HCPCS: 96365; 96367; J0878; J3490 ==

== ENCOUNTER → 2021-08-21 | Outpatient (CLI) | payer OTHER, SELFPAY ==
[2021-08-21 09:01] VITALS: BP 124/69; PULSE 79; RESP 16; TEMP 36.2; O2SAT 96
[2021-08-21 10:15] VITALS: BP 116/75; PULSE 72
== END | disposition home or self-care (01) ==
LOC: MEDOUTP 08:46
PROVIDERS: PCP Student in an Organized Health Care Education/Training Program; Referring Provider Internal Medicine Infectious Disease; Visit Provider Internal Medicine Infectious Disease
DX: M86.172 Other acute osteomyelitis, left ankle and foot (principal)
CPT/HCPCS: 96365; 96367; J0878; J7050; A4216; J3490

== ENCOUNTER → 2021-08-22 | Outpatient (CLI) | payer OTHER, SELFPAY ==
[2021-08-22 13:38] VITALS: BMI 23.6
[2021-08-22 14:30] VITALS: BP 112/67; PULSE 72
== END | disposition home or self-care (01) ==
LOC: MEDOUTP 13:32
PROVIDERS: PCP Student in an Organized Health Care Education/Training Program; Referring Provider Internal Medicine Infectious Disease; Visit Provider Internal Medicine Infectious Disease
DX: M86.8X7 Other osteomyelitis, ankle and foot (principal)
CPT/HCPCS: 96365; 96367; J0878; A4216; J3490

== ENCOUNTER → 2021-08-23 | Outpatient (CLI) | payer OTHER, SELFPAY ==
[2021-08-23 09:07] VITALS: BP 95/56; PULSE 77; RESP 16; TEMP 36.2; O2SAT 94
== END | disposition home or self-care (01) ==
LOC: MEDOUTP 08:50
PROVIDERS: PCP Student in an Organized Health Care Education/Training Program; Referring Provider Internal Medicine Infectious Disease; Visit Provider Internal Medicine Infectious Disease
DX: M86.172 Other acute osteomyelitis, left ankle and foot (principal)
CPT/HCPCS: 96365; 96367; J0878; A4216; J3490

== ENCOUNTER → 2021-08-24 | Outpatient (CLI) | payer OTHER, SELFPAY ==
[2021-08-24 09:06] VITALS: BP 104/57; PULSE 80; RESP 16; TEMP 35.9; O2SAT 95
[2021-08-24 09:39] VITALS: BP 108/65; PULSE 72
== END | disposition home or self-care (01) ==
LOC: MEDOUTP 08:53
PROVIDERS: PCP Student in an Organized Health Care Education/Training Program; Referring Provider Internal Medicine Infectious Disease; Visit Provider Internal Medicine Infectious Disease
DX: M86.172 Other acute osteomyelitis, left ankle and foot (principal)
CPT/HCPCS: 96365; 96367; J0878; A4216; J3490

== ENCOUNTER → 2021-08-25 | Outpatient (CLI) | payer OTHER, SELFPAY ==
[2021-08-25 08:55] VITALS: BP 89/53; PULSE 82; RESP 16; TEMP 36.3; O2SAT 98; BMI 23.6
[2021-08-25] MEDS: 0.9% NaCl Peripheral Flush Adult/Peds IV ×2 (09:36→09:57)
[2021-08-25 09:39] LABS: Hemoglobin 10.5 g/dL (13.0-16.5); Mean Corp Hgb Conc 31.8 g/dL (32-36); Mean Corpuscular Hgb 29.8 pg (27.0-32.0); Mean Corpuscular Volume 93.8 fL (80-94); Mean Platelet Vol. 9.2 fl (6.2-12.0); Platelet Count 292 K/mm3 (150-450); RBC Distribution Width CV 13.4 % (11.6-14.6); Red Blood Count 3.52 M/mm3 (4.6-6.2); White Blood Count 7.7 K/mm3 (4.4-11.0)
[2021-08-25 09:45] LABS: Erythrocyte Sedimentation Rate 69 mm/hr (0-20)
[2021-08-25 09:56] LABS: AST(SGOT) 9 U/L (15-37); Alanine Aminotransfer ALT/SGPT 15 U/L (16-61); Albumin, Serum 2.4 g/dL (3.2-5.0); Alkaline Phosphatase 78 U/L (45-117); Anion Gap 6 (5-15); BUN 30 mg/dL (7-18); BUN/Creat Ratio 31.8 RATIO (10-20); Bilirubin, Direct < 0.05 mg/dL (0.00-0.30); CPK Total, Creatine Kinase 40 U/L (39-308); Calcium,Total 8.6 mg/dL (8.5-10.1); Chloride 106 mmol/L (98-107); Creatinine, Serum 0.94 mg/dL (0.70-1.30); EST Glomerular Filtration Rate 87 mL/min (>60); Est Glom Filt Rate - Afr Amer 105 mL/min (>60); Estimated Creatinine Clearance 91.23 ml/min; Globulin 4.6 g/dL (2.2-4.2); Glucose 289 mg/dL (74-106); Potassium 4.3 mmol/L (3.5-5.1); Sodium Level 138 mmol/L (136-145)
[2021-08-25 10:03] VITALS: BP 124/68; PULSE 78; RESP 16; TEMP 36.4; O2SAT 97
== END | disposition home or self-care (01) ==
LOC: MEDOUTP 08:50
PROVIDERS: PCP Student in an Organized Health Care Education/Training Program; Referring Provider Internal Medicine Infectious Disease; Visit Provider Internal Medicine Infectious Disease
DX: M86.172 Other acute osteomyelitis, left ankle and foot (principal)
CPT/HCPCS: 96365; 96367; 36592; 80048; 80076; 82550; 85027; 85652; J0878; A4216; J3490

== ENCOUNTER 2021-08-26 08:50 | Outpatient (CLI) | payer OTHER, SELFPAY ==
[2021-08-26] MEDS: 0.9% NaCl IVPB Med Flush (250 mL) 15 ML IV (09:02)
[2021-08-26 09:11] VITALS: BP 124/74; PULSE 79; RESP 18; TEMP 37.1; O2SAT 94
== END 2021-08-26 10:00 | disposition home or self-care (01) ==
LOC: MEDOUTP 08:50 → PCU 08:51
PROVIDERS: PCP Student in an Organized Health Care Education/Training Program; Referring Provider Internal Medicine Infectious Disease; Visit Provider Internal Medicine Infectious Disease
DX: M86.172 Other acute osteomyelitis, left ankle and foot (principal)
CPT/HCPCS: 96365; 96367; J0878; J7050; J3490

== ENCOUNTER 2021-08-27 08:53 | Outpatient (CLI) | payer OTHER, SELFPAY ==
[2021-08-27] MEDS: 0.9% NaCl Peripheral Flush Adult/Peds IV ×2 (09:07→10:18)
== END 2021-08-27 10:18 | disposition home or self-care (01) ==
LOC: MEDOUTP 08:53 → PCU 08:54
PROVIDERS: PCP Student in an Organized Health Care Education/Training Program; Referring Provider Internal Medicine Infectious Disease; Visit Provider Internal Medicine Infectious Disease
DX: M86.172 Other acute osteomyelitis, left ankle and foot (principal)
CPT/HCPCS: 96365; 96367; J0878; J7040; A4216; J3490

== ENCOUNTER → 2021-08-28 | Outpatient (CLI) | payer OTHER, SELFPAY ==
[2021-08-28 09:01] VITALS: BP 134/74; PULSE 88; RESP 16; TEMP 36.1; O2SAT 99; BMI 23.6
[2021-08-28] MEDS: 0.9% NaCl PICC Flush IV ×2 (09:10→10:01)
[2021-08-28 10:02] VITALS: BP 130/82; PULSE 81; RESP 16; TEMP 36.2; O2SAT 98
== END | disposition home or self-care (01) ==
LOC: MEDOUTP 08:56
PROVIDERS: PCP Student in an Organized Health Care Education/Training Program; Referring Provider Internal Medicine Infectious Disease; Visit Provider Internal Medicine Infectious Disease
DX: M86.172 Other acute osteomyelitis, left ankle and foot (principal)
CPT/HCPCS: 96365; 96367; J0878; A4216; J3490

== ENCOUNTER → 2021-08-29 | Outpatient (CLI) | payer OTHER, SELFPAY ==
[2021-08-29 09:18] VITALS: BP 127/75; PULSE 73; RESP 16; TEMP 36.1; O2SAT 100; BMI 23.6
[2021-08-29] MEDS: 0.9% NaCl PICC Flush IV ×2 (09:20→09:52)
[2021-08-29 09:56] VITALS: BP 118/70; PULSE 75; RESP 14; TEMP 36.1; O2SAT 99
== END | disposition home or self-care (01) ==
LOC: MEDOUTP 09:13
PROVIDERS: PCP Student in an Organized Health Care Education/Training Program; Referring Provider Internal Medicine Infectious Disease; Visit Provider Internal Medicine Infectious Disease
DX: M86.172 Other acute osteomyelitis, left ankle and foot (principal)
CPT/HCPCS: 96365; 96367; J0878; A4216; J3490

== ENCOUNTER → 2021-08-30 | Outpatient (CLI) | payer OTHER, SELFPAY ==
[2021-08-30 09:02] VITALS: BP 112/63; PULSE 73; RESP 16; TEMP 36.1; O2SAT 98
[2021-08-30 09:52] VITALS: BP 127/68; PULSE 78; RESP 16; TEMP 36.5; O2SAT 97
== END | disposition home or self-care (01) ==
LOC: MEDOUTP 08:51
PROVIDERS: PCP Student in an Organized Health Care Education/Training Program; Referring Provider Internal Medicine Infectious Disease; Visit Provider Internal Medicine Infectious Disease
DX: M86.172 Other acute osteomyelitis, left ankle and foot (principal)
CPT/HCPCS: 96365; 96367; J0878; A4216; J3490

== ENCOUNTER → 2021-09-07 | Outpatient (CLI) | payer OTHER, SELFPAY ==
[2021-09-07 09:03] VITALS: BP 92/55; PULSE 84; RESP 16; TEMP 36.4; O2SAT 98; BMI 24.4
[2021-09-07 09:36] VITALS: BP 91/50; PULSE 78; RESP 16; O2SAT 97
== END | disposition home or self-care (01) ==
LOC: MEDOUTP 08:48
PROVIDERS: PCP Student in an Organized Health Care Education/Training Program; Referring Provider Internal Medicine Infectious Disease; Visit Provider Internal Medicine Infectious Disease
DX: M86.172 Other acute osteomyelitis, left ankle and foot (principal)
CPT/HCPCS: 96365; 96367; J0878; A4216; J3490

== ENCOUNTER → 2021-09-08 | Outpatient (CLI) | payer OTHER, SELFPAY ==
[2021-09-08 09:14] VITALS: BP 84/53; PULSE 78; RESP 16; TEMP 36.6; O2SAT 99; BMI 24.3
[2021-09-08 09:28] LABS: Hematocrit 25.8 % (40-54); Hemoglobin 8.1 g/dL (13.0-16.5); Mean Corp Hgb Conc 31.4 g/dL (32-36); Mean Corpuscular Hgb 28.9 pg (27.0-32.0); Mean Corpuscular Volume 92.1 fL (80-94); Mean Platelet Vol. 9.5 fl (6.2-12.0); Platelet Count 365 K/mm3 (150-450); RBC Distribution Width CV 13.4 % (11.6-14.6); RBC Distribution Width SD 45.5 fl (35.1-43.9); White Blood Count 8.6 K/mm3 (4.4-11.0)
[2021-09-08 09:31] LABS: Erythrocyte Sedimentation Rate 49 mm/hr (0-20)
[2021-09-08 09:50] VITALS: BP 104/67; PULSE 84; RESP 16; TEMP 36.6; O2SAT 99
[2021-09-08 09:54] LABS: AST(SGOT) 12 U/L (15-37); Alanine Aminotransfer ALT/SGPT 15 U/L (16-61); Albumin, Serum 2.5 g/dL (3.2-5.0); Alkaline Phosphatase 80 U/L (45-117); Anion Gap 7 (5-15); BUN 32 mg/dL (7-18); BUN/Creat Ratio 37.4 RATIO (10-20); Bilirubin, Direct 0.14 mg/dL (0.00-0.30); CPK Total, Creatine Kinase 32 U/L (39-308); Calcium,Total 8.7 mg/dL (8.5-10.1); Chloride 106 mmol/L (98-107); Creatinine, Serum 0.86 mg/dL (0.70-1.30); EST Glomerular Filtration Rate 97 mL/min (>60); Est Glom Filt Rate - Afr Amer 118 mL/min (>60); Estimated Creatinine Clearance 99.72 ml/min; Globulin 4.3 g/dL (2.2-4.2); Glucose 201 mg/dL (74-106); Potassium 3.8 mmol/L (3.5-5.1); Protein, Total 6.8 g/dL (6.4-8.2); Sodium Level 139 mmol/L (136-145)
== END | disposition home or self-care (01) ==
LOC: MEDOUTP 08:50
PROVIDERS: PCP Student in an Organized Health Care Education/Training Program; Referring Provider Internal Medicine Infectious Disease; Visit Provider Internal Medicine Infectious Disease
DX: M86.172 Other acute osteomyelitis, left ankle and foot (principal)
CPT/HCPCS: 96365; 96367; 36592; 80048; 80076; 82550; 85027; 85652; J0878; A4216; J3490

== ENCOUNTER 2021-09-09 08:52 | Outpatient (CLI) | payer OTHER, SELFPAY | END 2021-09-09 10:36 | disposition home or self-care (01) | LOC: MEDOUTP 08:53 → PCU 08:54 | PROVIDERS: PCP Student in an Organized Health Care Education/Training Program; Referring Provider Internal Medicine Infectious Disease; Visit Provider Internal Medicine Infectious Disease | DX: M86.172 Other acute osteomyelitis, left ankle and foot (principal) | CPT/HCPCS: 96365; 96367; J0878; J7040; J3490 ==

== ENCOUNTER 2021-09-10 09:02 | Outpatient (CLI) | payer OTHER, SELFPAY ==
[2021-09-10 09:17] VITALS: BP 113/66; PULSE 80; RESP 18; TEMP 36.1; O2SAT 98
[2021-09-10 10:06] VITALS: BP 109/68; PULSE 84; RESP 18; TEMP 36.1; O2SAT 97
== END 2021-09-10 10:08 | disposition home or self-care (01) ==
LOC: MEDOUTP 09:02 → PCU 09:03
PROVIDERS: PCP Student in an Organized Health Care Education/Training Program; Referring Provider Internal Medicine Infectious Disease; Visit Provider Internal Medicine Infectious Disease
DX: M86.172 Other acute osteomyelitis, left ankle and foot (principal)
CPT/HCPCS: 96365; 96367; J0878; J7040; J3490

== ENCOUNTER → 2021-09-11 | Outpatient (CLI) | payer OTHER, SELFPAY ==
[2021-09-11 08:55] VITALS: BP 113/70; PULSE 73; RESP 16; TEMP 36.4; O2SAT 98
[2021-09-11 09:43] VITALS: BP 121/82; PULSE 85; RESP 16
== END | disposition home or self-care (01) ==
LOC: MEDOUTP 08:49
PROVIDERS: PCP Student in an Organized Health Care Education/Training Program; Referring Provider Internal Medicine Infectious Disease; Visit Provider Internal Medicine Infectious Disease
DX: M86.172 Other acute osteomyelitis, left ankle and foot (principal)
CPT/HCPCS: 96365; 96367; J0878; A4216; J3490

== ENCOUNTER 2021-09-12 08:15 | Outpatient (RCR) | payer OTHER, SELFPAY ==
[2021-08-16 00:59] VITALS: BP 119/71; PULSE 84; RESP 16; TEMP 36.3; BMI 23.8
[2021-08-22 08:47] VITALS: BP 101/56; PULSE 79; RESP 16; TEMP 36.4; BMI 23.8
--- NOTE | 2021-08-22 09:20 | PN.PCM_ITS ---
History of Present Illness Date of Service: 08/22/21 Chief Complaint: Left 3rd toe redness History of Wound: This 60-year-old male seen 2.5 weeks postop from left foot partial third ray amputation (open) and incision and drainage left plantar midfoot. Patient is receiving IV antibiotics via PICC line being managed by infectious disease. Patient notes significant fatigue but denies any other constitutional symptoms. Patient notes home health care has been changing wound VAC every couple days. Patient has been nonweightbearing for the most part in a wheelchair but admits to transferring the heel weightbearing in surgical shoe. Patient has pain to his left lower extremity limited to the ulceration sites. Patient denies any worsening at this time. Objective Data Objective Data Vital Signs: Vital Signs Temp Pulse Resp BP 97.6 F L 79 16 101/56 L 08/22/21 08:47 08/22/21 08:47 08/22/21 08:47 08/22/21 08:47 Oxygen Delivery Method Room Air Weight: 77.564 kg Body Mass Index (BMI) 23.8 Physical Exam Narrative Patient alert oriented to person, place, and time. Patient ambulating heel weightbearing in surgical shoe left lower extremity. Vascular: Dorsalis pedis posterior tibial pulses monophasic to left lower extremity. Dorsalis pedis posterior tibial pulses right side palpable 1 out of 4. Delayed capillary fill time left lower extremity. Diminished digital hair growth. Atrophic skin changes noted. Neurologic: Light touch protective sensation absent to bilateral feet. No evidence of clonus or Babinski sign. Dermatologic: Partial third ray resection to the left foot demonstrates a fibrotic base with minimal drainage atrophic skin edges and necrosis extending to the fourth digit. Full-thickness ulceration to plantar midfoot at site of incision demonstrates significant dry necrosis to the periincisional area. No obvious signs of infection at this time. Resolved edema and erythema. No focal increase in warmth. Increased necrosis to the left fourth digit, dry stable, no residual signs of infection. Musculoskeletal: No wound forming deformity noted to bilateral lower extremity. Muscular strength 5 out of 5 to bilateral lower extremity compartments No pain with calf squeeze bilateral lower extremities. Debridement Note Debridement Note Post-Debridement Measurements and Additional Note: Post-Debridement Measurements/Treatment ROYCE - Nurse 1 - General Ulcer Assessment Start: 08/22/21 08:47 Freq: Status: Active Protocol: ROYCE.LOWEXT Activity Type Activity Date Activity User E-Sign Co-Sign Detail Recorded Client Recorded Date Recorded By Document 08/22/21 08:47 [id number] 08/22/21 09:06 08/22/21 08:47 - Today's Visit Information Type of service Follow-up Visit (Physician/PRINCIPAL SECURITY ARCHITECT ) Arrival Mode Wheelchair Transfer Assistance None Accompanied by Patient Identification Verified (Name & Yes ) Patient Requires Transmission-Based No Precautions Safety Precautions NA Finger Stick Blood Sugar(mg/dl) (if 160 indicated): Blood Sugar Stated by Patient Height and Weight Body Mass Index (BMI) 23.8 BMI Classification Normal Vital Signs Temperature (97.8 F-99.1 F) 97.6 F L Temperature Source Temporal Pulse Rate (60-100) 79 Pulse Location Monitor Respiratory Rate (12-18) 16 Respiratory rate source Observation Oxygen Delivery Method Room Air Blood Pressure (90/60-120/80) 101/56 L Blood Pressure Mean (mm Hg) 71 Source Monitor Position Sitting Blood Pressure Location Left Arm History Since Last Visit- (Skip if this is Patient's initial visit) Have you changed medications since your No last visit? Any new allergies or adverse reactions No Had a fall/change in ADL's that may No increase risk of falls Signs or symptoms of abuse and/or No neglect since last visit Have you been in the hospital since your No last visit? Has dressing in place as prescribed Yes Has compression in place as prescribed Yes Has offloadiing in place as prescribed N/A Experienced any changes in pain level or No management Left Footwear Surgical Shoe with pressure relief insole Right Footwear Regular Shoe Pain Scale: 0-10 Numeric Is Patient Pain Free? Yes - Nurse 1 - General Ulcer Measurement Start: 08/22/21 08:47 Freq: Status: Active Protocol: Activity Type Activity Date Activity User E-Sign Co-Sign Detail Recorded Client Recorded Date Recorded By Document 08/22/21 08:47 [id number] 08/22/21 09:06 08/22/21 08:47 Wound Center Nurse 1 #5 left dorsal foot -Combined with other wound No -Current Size (cm) - Length 1.5 -Current Size (cm) - Width 0.3 -Current Size (cm) - Depth 0.1 -Total Square Cm 0.45 -Photo Taken Yes -Epithelialization None Present -Tunneling No -Undermining/Tunneling No -Circular Undermining No -Exudate Amt Medium -Exudate Type Serosanguineous -Wound Margin Distinct, Outline Attached -Granulation Amt Large (67-100%) -Granulation Quality [place] -Slough/Fibrin Yes -Necrosis Amt Small (1-33%) -Necrotic Tissue Type Adherent Slough -Structure Exposed N/A -Texture (Bernadette-wound Skin Appearance) Assessed, Localized Edema ,Scarring -Moisture (Bernadette-wound Skin Appearance) No Abnormality, Assessed -Color (Bernadette-wound Skin Appearance) Assessed,Rubor -Temperature (Bernadette-wound Skin No Abnormality Appearance) (Pt Warm) -Tenderness on Palpation (Bernadette-wound No Skin Appearance) -Ulcer Cleansing Soap and Water -Foul Odor after Cleansing No -Anesthetic Used 4% Lidocaine Solution #4- L PLANTAR FOOT -Combined with other wound No -Current Size (cm) - Length 3.3 -Current Size (cm) - Width 3.5 -Current Size (cm) - Depth 0.5 -Total Square Cm 11.55 -Date of Last Picture (Recall this 08/22/21 field) -Photo Taken Yes -Epithelialization None Present -Tunneling No -Undermining/Tunneling No -Circular Undermining No -Exudate Amt Medium -Exudate Type Serosanguineous -Granulation Amt None Present (0 %) -Granulation Quality N/A -Slough/Fibrin Yes -Necrosis Amt Large (67-100%) -Structure Exposed N/A -Texture (Bernadette-wound Skin Appearance) Assessed, Localized Edema ,Scarring -Moisture (Bernadette-wound Skin Appearance) Assessed -Color (Bernadette-wound Skin Appearance) Assessed,Rubor -Temperature (Bernadette-wound Skin No Abnormality Appearance) (Pt Warm) -Ulcer Cleansing Soap and Water -Foul Odor after Cleansing No -Anesthetic Used 4% Lidocaine Solution #3- L FOOT 3RD TOE AMP SITE (POST OP) -Combined with other wound No -Current Size (cm) - Length 5.0 -Current Size (cm) - Width 2.5 -Current Size (cm) - Depth 4.8 -Total Square Cm 12.50 -Date of Last Picture (Recall this 08/22/21 field) -Photo Taken Yes -Epithelialization None Present -Tunneling No -Undermining/Tunneling No -Circular Undermining No -Exudate Amt Medium -Exudate Type Serosanguineous -Wound Margin Distinct, Outline Attached -Granulation Amt None Present (0 %) -Granulation Quality N/A -Slough/Fibrin Yes -Necrosis Amt Large (67-100%) -Necrotic Tissue Type Adherent Slough -Structure Exposed N/A -Texture (Bernadette-wound Skin Appearance) Assessed, Localized Edema ,Scarring -Moisture (Bernadette-wound Skin Appearance) No Abnormality, Assessed -Color (Bernadette-wound Skin Appearance) Assessed,Rubor -Temperature (Bernadette-wound Skin No Abnormality Appearance) (Pt Warm) -Ulcer Cleansing Soap and Water -Foul Odor after Cleansing No -Anesthetic Used 4% Lidocaine Solution #2 Left Foot 2,3 rd Web Space -Combined with other wound No -Current Size (cm) - Length 0.1 -Current Size (cm) - Width 0.1 -Current Size (cm) - Depth 0.1 -Total Square Cm 0.01 -Photo Taken No Lower Limb Edema Present No WC - Nurse 2 - General Ulcer CM Notes Start: 08/22/21 08:47 Freq: Status: Active Protocol: Activity Type Activity Date Activity User E-Sign Co-Sign Detail Recorded Client Recorded Date Recorded By Document 08/22/21 09:11 ORESTES [id number] 08/22/21 09:13 ORESTES 08/22/21 09:11 Wound Center Nurse 2 #5 left dorsal foot -Correct Patient No -Correct Side, Site, Position No -Correct Procedure No -Procedure Performed No -Wound/Ulcer Outcome Not Healed #4- L PLANTAR FOOT -Correct Patient No -Correct Side, Site, Position No -Correct Procedure No -Procedure Performed No -Wound/Ulcer Outcome Not Healed #3- L FOOT 3RD TOE AMP SITE (POST OP) -Correct Patient No -Correct Side, Site, Position No -Correct Procedure No -Procedure Performed No -Wound/Ulcer Outcome Not Healed #2 Left Foot 2,3 rd Web Space -Correct Patient No -Correct Side, Site, Position No -Correct Procedure No -Procedure Performed No -Wound/Ulcer Outcome Amputation Pain Scale: 0-10 Numeric Is Patient Pain Free? Yes Assessment/Plan Assessment/Plan (1) Peripheral vascular disease, unspecified: CODE(S): I73.9 - Peripheral vascular disease, unspecified (2) Non-pressure chronic ulcer of other part of left foot with fat layer exposed: CODE(S): L97.522 - Non-pressure chronic ulcer of other part of left foot with fat layer exposed PLAN: Patient examined evaluated, all findings reyes with patient in detail. Patient is 2.5 weeks postop from left partial third ray resection and incision and drainage left plantar midfoot. The wounds appear to be deteriorating at this time and do not demonstrate any significant signs of wound healing potential. In the hospital setting patient demonstrated minimal bleeding upon operative treatment. The patient is awaiting coronary artery bypass. It is my recommendation to proceed with this as the patient demonstrates no residual signs of infection to his left foot. His left foot wound will likely not heal until additional revascularization attempt or more proximal amputation is performed such as below-knee amputation. This was discussed with the patient in great detail. Patient understands risks. Patient is following up with Dr. Maciel on Saturday of this week we will further evaluate the site. Patient will continue cleansing the site daily and application of Dakin's to wound site. Patient is pending evaluation by cardiac surgery today. Patient's left lower extremity wounds will likely not heal unless there is a revascularization attemp t or more proximal amputation. Patient is following with vascular surgery. Patient should continue nonweightbearing via wheelchair and transfers using his heel. Follow-up in 1 week. Again this is a limb salvage case patient is a significant vasculopath with significant peripheral arterial disease and coronary artery disease. Any additional debridement or amputation on my side but likely will lead to additional skin necrosis and tissue loss. At this time we are observing mainly for any residual signs or symptoms of infection. Patient may require more proximal amputation if revascularization cannot be performed.
[2021-08-29 08:28] VITALS: BP 120/67; PULSE 77; RESP 16; TEMP 36.2; BMI 23.8
--- NOTE | 2021-08-29 09:00 | PN_ITS ---
Subjective Subjective 60-year-old male seen bedside 4 days status post left foot incision and drainage and open partial third ray resection. Patient denies any constitutional symptoms. Patient notes resolution of pain to foot. Patient still has pain to left lower extremity has been present since angiogram. Patient voiding urine and having bowel movements. No new complaints at this time. Objective Data Objective Data Vital Signs: Vital Signs Temp Pulse Resp BP 97.2 F L 77 16 120/67 08/29/21 08:28 08/29/21 08:28 08/29/21 08:28 08/29/21 08:28 Oxygen Delivery Method Room Air Weight: 77.564 kg Body Mass Index (BMI) 23.8 Physical Exam Narrative Patient alert oriented to person, place, and time. Patient ambulating heel weightbearing in surgical shoe left lower extremity. Vascular: Dorsalis pedis posterior tibial pulses monophasic to left lower extremity. Dorsalis pedis posterior tibial pulses right side palpable 1 out of 4. Delayed capillary fill time left lower extremity. Diminished digital hair growth. Atrophic skin changes noted. Neurologic: Light touch protective sensation absent to bilateral feet. No evidence of clonus or Babinski sign. Dermatologic: Partial third ray resection to the left foot demonstrates a fibrotic base with minimal drainage atrophic skin edges and necrosis extending to the fourth digit. Full-thickness ulceration to plantar midfoot at site of incision demonstrates significant dry necrosis to the periincisional area. No obvious signs of infection at this time. Resolved edema and erythema. No focal increase in warmth. Increased necrosis to the left fourth digit, dry stable, no residual signs of infection. Musculoskeletal: No wound forming deformity noted to bilateral lower extremity. Muscular strength 5 out of 5 to bilateral lower extremity compartments No pain with calf squeeze bilateral lower extremities. Assessment & Plan Assessment/Plan (1) Peripheral vascular disease, unspecified: (2) Non-pressure chronic ulcer of other part of left foot with fat layer exposed: PLAN: Patient examined evaluated, all findings reyes with patient in detail. Patient is 3.5 weeks postop from left partial third ray resection and incision and drainage left plantar midfoot. Patient undergoing coronary artery bypass surgery on of this week 08/31/2021 at [facility]. The wounds appear to be deteriorating at this time and do not demonstrate any significant signs of wound healing potential. In the hospital setting patient demonstrated minimal bleeding upon operative treatment. The patient is awaiting coronary artery bypass. It is my recommendation to pr oceed with this as the patient demonstrates no residual signs of infection to his left foot. His left foot wound will likely not heal until additional revascularization attempt or more proximal amputation is performed such as below-knee amputation. This was discussed with the patient in great detail. Patient understands risks. Patient is following up with Dr. Maciel on Saturday of this week we will further evaluate the site. Patient will continue cleansing the site daily and application of Dakin's to wound site. Patient is pending evaluation by cardiac surgery today. Patient's left lower extremity wounds will likely not heal unless there is a revascularization attempt or more proximal amputation. Patient is following with vascular surgery. Patient should continue nonweightbearing via wheelchair and transfers using his heel. Follow-up in 1 week. Again this is a limb salvage case patient is a significant vasculopath with significant peripheral arterial disease and coronary artery disease. Any additional debridement or amputation on my side but likely will lead to additional skin necrosis and tissue loss. At this time we are observing mainly for any residual signs or symptoms of infection. Patient may require more proximal amputation if revascularization cannot be performed.
[2021-09-12 08:19] VITALS: BP 115/73; PULSE 96; RESP 16; TEMP 36.2; BMI 23.8
--- NOTE | 2021-09-12 09:02 | PCM.WC.PN ---
History of Present Illness Date of Service: 09/12/21 Chief Complaint: Left 3rd toe redness History of Wound: This 60-year-old male seen in the wound care center for chronic left foot ulceration secondary to peripheral arterial disease. Patient recently underwent quadruple bypass surgery successfully at [facility]. At current he denies any pain to his left lower extremity, constitutional symptoms, chest pain, shortness of breath, calf pain. He notes some improvement to bleeding and blood flow to left lower extremity ulcerations. Patient has been weight maintaining a heel weightbearing status assisted with a walker to left foot. He notes that he predominantly uses a wheelchair while at home though. No other complaints at this time. Patient denies any rest pain. Objective Data Objective Data Vital Signs: Vital Signs Temp Pulse Resp BP 97.1 F L 96 16 115/73 09/12/21 08:19 09/12/21 08:19 09/12/21 08:19 09/12/21 08:19 Oxygen Delivery Method Room Air Weight: 77.564 kg Body Mass Index (BMI) 23.8 Physical Exam Narrative Patient alert oriented to person, place, and time. Patient ambulating heel weightbearing in surgical shoe left lower extremity. Vascular: Dorsalis pedis posterior tibial pulses monophasic to left lower extremity. Dorsalis pedis posterior tibial pulses right side palpable 1 out of 4. Delayed capillary fill time left lower extremity. Diminished digital hair growth. Atrophic skin changes noted. Neurologic: Light touch protective sensation absent to bilateral feet. No evidence of clonus or Babinski sign. Dermatologic: Partial third ray resection to the left foot demonstrates a fibrotic base with minimal drainage atrophic skin edges and necrosis extending to the fourth digit. Full-thickness ulceration to plantar midfoot at site of incision demonstrates significant dry necrosis to the periincisional area. No obvious signs of infection at this time. Resolved edema and erythema. No focal increase in warmth. Increased necrosis to the left fourth digit, dry stable, no residual signs of infection. New area of irritation necrosis to the mid dorsal medial first MPJ on the left foot. No evidence of deep probing undermining at this time. No signs of infection. Musculoskeletal: No wound forming deformity noted to bilateral lower extremity. Muscular strength 5 out of 5 to bilateral lower extremity compartments No pain with calf squeeze bilateral lower extremities. Debridement Note Debridement Note Post-Debridement Measurements and Additional Note: Post-Debridement Measurements/Treatment WC - Nurse 1 - General Ulcer Assessment Start: 08/22/21 08:47 Freq: Status: Active Protocol: ROYCE.LOWEXT Activity Type Activity Date Activity User E-sign Co-sign Detail Recorded Client Recorded Date Recorded By Document 08/22/21 08:47 MW [id number] 08/22/21 09:06 MW Document 08/29/21 08:28 ML [id number] 08/29/21 08:35 ML Document 09/12/21 08:19 AK [id number] 09/12/21 08:32 AK 08/22/21 08/29/21 09/12/21 08:47 08:28 08:19 WC - Today's Visit Information Type of service Follow-up Visit Follow-up Visit Follow-up Visit (Physician/END FINDER TWISTING DEPARTMENT (Physician/END FINDER TWISTING DEPARTMENT (Physician/END FINDER TWISTING DEPARTMENT ) ) ) Arrival Mode Wheelchair Wheelchair Wheelchair Transfer Assistance None None Other Transfer Assist (Other) standby Accompanied by Patient Identification Verified (Name & Yes Yes Yes ) Patient Requires Transmission-Based No No No Precautions Safety Precautions NA NA NA Finger Stick Blood Sugar(mg/dl) (if 160 132 indicated): Blood Sugar Stated by Stated by Patient Patient Height and Weight Body Mass Index (BMI) 23.8 23.8 23.8 BMI Classification Normal Normal Normal Vital Signs Temperature (97.8 F-99.1 F) 97.6 F L 97.2 F L 97.1 F L Temperature Source Temporal Temporal Temporal Pulse Rate (60-100) 79 77 96 Pulse Location Monitor Monitor Monitor Respiratory Rate (12-18) 16 16 16 Respiratory rate source Observation Observation Observation Oxygen Delivery Method Room Air Room Air Blood Pressure (90/60-120/80) 101/56 L 120/67 115/73 Blood Pressure Mean (mm Hg) 71 84 87 Source Monitor Monitor Monitor Position Sitting Sitting Sitting Blood Pressure Location Left Arm Left Arm Left Arm History Since Last Visit- (Skip if this is Patient's initial visit) Have you changed medications since your No No Yes last visit? Any new allergies or adverse reactions No No No Had a fall/change in ADL's that may No No No increase risk of falls Signs or symptoms of abuse and/or No No No neglect since last visit Have you been in the hospital since your No No Yes last visit? Has dressing in place as prescribed Yes Yes Yes Has compression in place as prescribed Yes Yes Yes Has offloadiing in place as prescribed N/A Yes N/A Experienced any changes in pain level or No No No management Left Footwear Surgical Shoe Surgical Shoe No Footwear with pressure with pressure relief insole relief insole Right Footwear Regular Shoe Regular Shoe Regular Shoe Other Footwear just drsg to left foot Pain Scale: 0-10 Numeric Is Patient Pain Free? Yes Yes Yes WC - Nurse 1 - General Ulcer Measurement Start: 08/22/21 08:47 Freq: Status: Active Protocol: Activity Type Activity Date Activity User E-sign Co-sign Detail Recorded Client Recorded Date Recorded By Document 08/22/21 08:47 MW [id number] 08/22/21 09:06 MW Document 08/29/21 08:28 ML [id number] 08/29/21 08:35 ML Document 09/12/21 08:19 AK [id number] 09/12/21 08:32 AK 08/22/21 08/29/21 09/12/21 08:47 08:28 08:19 Wound Center Nurse 1 #2 Left Foot 2,3 rd Web Space -Combined with other wound No -Current Size (cm) - Length 0.1 -Current Size (cm) - Width 0.1 -Current Size (cm) - Depth 0.1 -Total Square Cm 0.01 -Photo Taken No #6- L MEDIAL FOOT -Combined with other wound No -Current Size (cm) - Length 1.5 -Current Size (cm) - Width 1 -Current Size (cm) - Depth 0.1 -Total Square Cm 1.5 -Date of Last Picture (Recall this 09/12/21 field) -Photo Taken Yes -Epithelialization None Present -Tunneling No -Undermining/Tunneling No -Circular Undermining No -Exudate Amt None Present -Wound Margin Distinct, Outline Attached -Granulation Amt None Present (0 %) -Slough/Fibrin Yes -Necrosis Amt Large (67-100%) -Necrotic Tissue Type Eschar -Texture (Bernadette-wound Skin Appearance) Assessed, Scarring -Moisture (Bernadette-wound Skin Appearance) Assessed -Color (Bernadette-wound Skin Appearance) Assessed, Erythema -Tenderness on Palpation (Bernadette-wound Yes Skin Appearance) -Ulcer Cleansing Rinsed/ Irrigated with Saline -Foul Odor after Cleansing No -Anesthetic Used 4% Lidocaine Solution #5 left dorsal foot -Combined with other wound No No -Current Size (cm) - Length 1.5 1.3 0.1 -Current Size (cm) - Width 0.3 0.5 0.1 -Current Size (cm) - Depth 0.1 0.1 0.1 -Total Square Cm 0.45 0.65 0.01 -Date of Last Picture (Recall this 09/12/21 field) -Photo Taken Yes Yes -Epithelialization None Present Medium 34-66% -Tunneling No No -Undermining/Tunneling No No -Circular Undermining No No -Exudate Amt Medium Medium None Present -Exudate Type Serosanguineous -Wound Margin Distinct, Outline Attached -Granulation Amt Large (67-100%) Small (1-33%) None Present (0 %) -Granulation Quality [place] Red -Slough/Fibrin Yes Yes -Necrosis Amt Small (1-33%) Medium (34-66%) Large (67-100%) -Necrotic Tissue Type Adherent Slough Eschar Eschar -Structure Exposed N/A -Texture (Bernadette-wound Skin Appearance) Assessed, Assessed Assessed, Localized Edema Scarring ,Scarring -Moisture (Bernadette-wound Skin Appearance) No Abnormality, Assessed Assessed Assessed -Color (Bernadette-wound Skin Appearance) Assessed,Rubor Assessed Assessed, Erythema -Temperature (Bernadette-wound Skin No Abnormality No Abnormality No Abnormality Appearance) (Pt Warm) (Pt Warm) (Pt Warm) -Tenderness on Palpation (Bernadette-wound No No No Skin Appearance) -Ulcer Cleansing Soap and Water Rinsed/ Rinsed/ Irrigated with Irrigated with Saline Saline -Foul Odor after Cleansing No No No -Anesthetic Used 4% Lidocaine 4% Lidocaine 4% Lidocaine Solution Solution Solution #4- L PLANTAR FOOT -Combined with other wound No No -Current Size (cm) - Length 3.3 2.4 3.3 -Current Size (cm) - Width 3.5 3.3 3 -Current Size (cm) - Depth 0.5 1.1 1.1 -Total Square Cm 11.55 7.92 9.9 -Date of Last Picture (Recall this 08/22/21 09/12/21 field) -Photo Taken Yes Yes -Epithelialization None Present None Present -Tunneling No No -Undermining/Tunneling No No -Circular Undermining No No -Exudate Amt Medium Medium -Exudate Type Serosanguineous Serosanguineous -Wound Margin Distinct, Outline Attached -Granulation Amt None Present (0 Small (1-33%) Small (1-33%) %) -Granulation Quality N/A Red -Slough/Fibrin Yes Yes Yes -Necrosis Amt Large (67-100%) Medium (34-66%) Large (67-100%) -Necrotic Tissue Type Eschar Adherent Slough -Structure Exposed N/A Tendon -Texture (Bernadette-wound Skin Appearance) Assessed, Assessed Assessed, Localized Edema Scarring ,Scarring -Moisture (Bernadette-wound Skin Appearance) Assessed Assessed Assessed -Color (Bernadette-wound Skin Appearance) Assessed,Rubor Assessed Assessed -Temperature (Bernadette-wound Skin No Abnormality No Abnormality No Abnormality Appearance) (Pt Warm) (Pt Warm) (Pt Warm) -Tenderness on Palpation (Bernadette-wound No Yes Skin Appearance) -Ulcer Cleansing Soap and Water Rinsed/ Irrigated with Saline -Foul Odor after Cleansing No No No -Anesthetic Used 4% Lidocaine 4% Lidocaine 4% Lidocaine Solution Solution Solution #3- L FOOT 3RD TOE AMP SITE (POST OP) -Combined with other wound No No -Current Size (cm) - Length 5.0 6 4.8 -Current Size (cm) - Width 2.5 1.6 2.2 -Current Size (cm) - Depth 4.8 3.3 2 -Total Square Cm 12.50 9.6 10.56 -Date of Last Picture (Recall this 08/22/21 09/12/21 field) -Photo Taken Yes Yes -Epithelialization None Present None Present -Tunneling No No -Undermining/Tunneling No No -Circular Undermining No No -Exudate Amt Medium Large Medium -Exudate Type Serosanguineous Serous Serosanguineous -Wound Margin Distinct, Distinct, Distinct, Outline Outline Outline Attached Attached Attached -Granulation Amt None Present (0 None Present (0 Small (1-33%) %) %) -Granulation Quality N/A -Slough/Fibrin Yes Yes Yes -Necrosis Amt Large (67-100%) Large (67-100%) Large (67-100%) -Necrotic Tissue Type Adherent Slough Eschar Adherent Slough -Structure Exposed N/A -Texture (Bernadette-wound Skin Appearance) Assessed, Assessed Assessed, Localized Edema Scarring ,Scarring -Moisture (Bernadette-wound Skin Appearance) No Abnormality, Assessed Assessed Assessed -Color (Bernadette-wound Skin Appearance) Assessed,Rubor Assessed Assessed, Erythema -Temperature (Bernadette-wound Skin No Abnormality No Abnormality No Abnormality Appearance) (Pt Warm) (Pt Warm) (Pt Warm) -Tenderness on Palpation (Bernadette-wound No Yes Skin Appearance) -Ulcer Cleansing Soap and Water Rinsed/ Rinsed/ Irrigated with Irrigated with Saline Saline -Foul Odor after Cleansing No No No -Anesthetic Used 4% Lidocaine 4% Lidocaine 4% Lidocaine Solution Solution Solution Lower Limb Edema Present No WC - Nurse 2 - General Ulcer CM Notes Start: 08/22/21 08:47 Freq: Status: Active Protocol: Activity Type Activity Date Activity User E-sign Co-sign Detail Recorded Client Recorded Date Recorded By Document 08/22/21 09:11 [id number] 08/22/21 09:13 Document 08/29/21 08:51 [id number] 08/29/21 08:53 Document 09/12/21 08:43 MW [id number] 09/12/21 08:51 MW 08/22/21 08/29/21 09/12/21 09:11 08:51 08:43 Wound Center Nurse 2 #2 Left Foot 2,3 rd Web Space -Correct Patient No -Correct Side, Site, Position No -Correct Procedure No -Procedure Performed No -Wound/Ulcer Outcome Amputation #6- L MEDIAL FOOT -Time 08:43 -Correct Patient Yes -Correct Side, Site, Position Yes -Correct Procedure Yes -Procedure Performed No -Tunneling No -Undermining/Tunneling No -Circular Undermining No -Wound/Ulcer Outcome Not Healed #5 left dorsal foot -Time 08:48 -Correct Patient No No Yes -Correct Side, Site, Position No No Yes -Correct Procedure No No Yes -Procedure Performed No No No -Tunneling No -Undermining/Tunneling No -Circular Undermining No -Wound/Ulcer Outcome Not Healed Not Healed Not Healed #4- L PLANTAR FOOT -Time 08:49 -Correct Patient No No Yes -Correct Side, Site, Position No No Yes -Correct Procedure No No Yes -Procedure Performed No No No -Tunneling No -Undermining/Tunneling No -Circular Undermining No -Wound/Ulcer Outcome Not Healed Not Healed Not Healed #3- L FOOT 3RD TOE AMP SITE (POST OP) -Time 08:49 -Correct Patient No No Yes -Correct Side, Site, Position No No Yes -Correct Procedure No No Yes -Procedure Performed No No No -Tunneling No -Undermining/Tunneling No -Circular Undermining No -Wound/Ulcer Outcome Not Healed Not Healed Not Healed Pain Scale: 0-10 Numeric Is Patient Pain Free? Yes Yes Yes WC - Nurse 3 - General Ulcer D/C NN Start: 08/22/21 08:47 Freq: Status: Active Protocol: Activity Type Activity Date Activity User E-sign Co-sign Detail Recorded Client Recorded Date Recorded By Document 08/22/21 09:14 [id number] 08/22/21 09:24 Document 08/29/21 08:54 [id number] 08/29/21 08:55 08/22/21 08/29/21 09:14 08:54 Wound Care Nurse 3 #2 Left Foot 2,3 rd Web Space -Other Dressing betadine -Primary Dressing Covered/Secured with Dry Gauze & Roll Gauze, Secured with Tape #5 left dorsal foot -Ulcer Cleansing Rinsed/ Rinsed/ Irrigated with Irrigated with Saline Saline -Foul Odor after Cleansing No -Primary Dressing Applied C Hydrogel ($) Other -Other Dressing betadine -Primary Dressing Covered/Secured with Dry Gauze Dry Gauze & Roll Gauze #4- L PLANTAR FOOT -Ulcer Cleansing Rinsed/ Irrigated with Saline -Foul Odor after Cleansing No -Primary Dressing Applied Other -Other Dressing betadine betadine -Primary Dressing Covered/Secured with Dry Gauze & Dry Gauze & Roll Gauze, Roll Gauze Secured with Tape #3- L FOOT 3RD TOE AMP SITE (POST OP) -Ulcer Cleansing Rinsed/ Irrigated with Saline -Foul Odor after Cleansing No -Primary Dressing Applied Other -Other Dressing betadine betadine -Primary Dressing Covered/Secured with Dry Gauze & Dry Gauze & Roll Gauze, Roll Gauze Secured with Tape Left -Compression Wrap Mian Wrap Mian Wrap -Other extremely loose mian wrap with no stretch to assist keeping gauze in place Pain Scale: 0-10 Numeric Is Patient Pain Free? Yes Yes WC - Visit Discharge Discharge Condition Stable Stable Ambulatory Status Wheelchair Wheelchair Transportation Private Auto Private Auto Accompanied by Medication Reconcilliation completed & Yes Yes provided to patient/care provider Clinical Summary of Care Provided Yes Yes Assessment/Plan Assessment/Plan (1) Peripheral vascular disease, unspecified: CODE(S): I73.9 - Peripheral vascular disease, unspecified (2) Non-pressure chronic ulcer of other part of left foot with fat layer exposed: CODE(S): L97.522 - Non-pressure chronic ulcer of other part of left foot with fat layer exposed PLAN: Patient examined evaluated, all findings reyes with patient in detail. Left foot wound examined. There is noted to be increased granulation tissue to the partial third ray resection site. The plantar midfoot wound appears to be well demarcated at this time. There is new irritation at the dorsal medial first MPJ this is a site that was wrapped with Coban intraoperatively during the patient's stay after his coronary artery bypass surgery. At this time no debridement was performed. Wound site was examined. Redressed with saline wet-to-dry to the third ray resection site with Betadine paint to the plantar midfoot wound and dorsal medial first MPJ on the left side. This was applied along with a dry sterile dressing. Patient will maintain a heel weightbearing status to left lower extremity. I have ordered arterial studies to reevaluate patient's vascular status. I recommend follow-up with Dr. Maciel for additional work-up. At this time we are trying to determine the patient's vascular status to determine a definitive amputation level. We will continue daily dressing changes consisting of saline flushes drying to the site saline wet-to-dry to the third ray resection site and Betadine to the other wounds all along with a dry sterile dressing. Patient will follow up in 1 week.
== END 2021-09-14 23:59 | disposition home or self-care (01) ==
LOC: WC 08:15
PROVIDERS: PCP Student in an Organized Health Care Education/Training Program; Visit Provider Podiatrist
DX: L97.522 Non-pressure chronic ulcer of other part of left foot with fat layer exposed (principal); I73.9 Peripheral vascular disease, unspecified; R07.9 Chest pain, unspecified; M79.605 Pain in left leg; R53.83 Other fatigue
CPT/HCPCS: 99213; G0463

== ENCOUNTER → 2021-09-12 | Outpatient (CLI) | payer OTHER, SELFPAY ==
[2021-09-12 12:25] VITALS: BP 103/61; PULSE 99; RESP 16; TEMP 36; O2SAT 99
[2021-09-12 12:58] VITALS: BP 119/68; PULSE 98; RESP 12; TEMP 36.6; O2SAT 100
== END | disposition home or self-care (01) ==
LOC: MEDOUTP 12:13
PROVIDERS: PCP Student in an Organized Health Care Education/Training Program; Referring Provider Internal Medicine Infectious Disease; Visit Provider Internal Medicine Infectious Disease
DX: M86.172 Other acute osteomyelitis, left ankle and foot (principal)
CPT/HCPCS: 96365; 96367; J0878; A4216; J3490

== ENCOUNTER → 2021-09-13 | Outpatient (CLI) | payer OTHER, SELFPAY ==
--- NOTE | 2021-09-13 09:41 | ADUL_ITS ---
Reason For Study: Atherosclerosis Left Velocities Ext Iliac Artery, dist = 107 cm./sec. Common Femoral Artery, mid = 123.4 cm./sec. SFA, origin, 139.4 cm/sec. SFA, prox, 50.1 cm/sec. SFA, prox/mid, 144 cm/sec. SFA, mid, 69.5 cm/sec. SFA, distal, 60.9 cm/sec. Profunda Femoral Artery = 99.7 cm./sec. Popliteal Artery, mid = 57.2 cm./sec. Popliteal artery, distal, No Flow noted. 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 Peroneal Artery, prox = 15.6 cm./sec. Peroneal Artery, mid = 21.6 cm./sec. Peroneal Artery,dist. = 15.9 cm./sec. Ant.Tibial Artery, prox = 36 cm./sec. Ant Tibial Artery, mid = 33.2 cm./sec. Ant. Tibial Artery, distal = 28.2 cm./sec. Procedure Preliminary report to PR's voicemail. Exam performed in department. /US Art Duplex Unilat Lower Ext Interpretation Summary Left lower extremity with popliteal artery occluded. Ordering Physician: Perry Maciel Referring Physician: Javy Alcaraz Performed By: Chelsie Lacy RVT
== END | disposition home or self-care (01) ==
LOC: CVS 09:39
PROVIDERS: PCP Student in an Organized Health Care Education/Training Program; Referring Provider Surgery Vascular Surgery; Visit Provider Surgery Vascular Surgery
DX: I70.213 Atherosclerosis of native arteries of extremities with intermittent claudication, bilateral legs (principal); E11.621 Type 2 diabetes mellitus with foot ulcer; E11.59 Type 2 diabetes mellitus with other circulatory complications; I77.1 Stricture of artery; I65.23 Occlusion and stenosis of bilateral carotid arteries; E78.00 Pure hypercholesterolemia, unspecified; I10 Essential (primary) hypertension
CPT/HCPCS: 93926

== ENCOUNTER → 2021-09-13 | Outpatient (CLI) | payer OTHER, SELFPAY ==
[2021-09-13 10:41] VITALS: BP 100/72; PULSE 85; RESP 16; TEMP 36.1; O2SAT 100
[2021-09-13 11:14] VITALS: BP 132/84; PULSE 84; RESP 12; TEMP 36.3; O2SAT 100
== END | disposition home or self-care (01) ==
LOC: MEDOUTP 10:28
PROVIDERS: PCP Student in an Organized Health Care Education/Training Program; Referring Provider Internal Medicine Infectious Disease; Visit Provider Internal Medicine Infectious Disease
DX: M86.172 Other acute osteomyelitis, left ankle and foot (principal)
CPT/HCPCS: 96365; 96367; J0878; A4216; J3490

== ENCOUNTER → 2021-09-14 | Outpatient (CLI) | payer OTHER, SELFPAY ==
[2021-09-14 08:48] VITALS: BP 138/81; PULSE 88; RESP 16; TEMP 36.4; O2SAT 99; BMI 24.3
[2021-09-14 10:07] VITALS: BP 117/67; PULSE 72; RESP 16; TEMP 36.6; O2SAT 98
== END | disposition home or self-care (01) ==
LOC: MEDOUTP 08:43
PROVIDERS: PCP Student in an Organized Health Care Education/Training Program; Referring Provider Internal Medicine Infectious Disease; Visit Provider Internal Medicine Infectious Disease
DX: M86.172 Other acute osteomyelitis, left ankle and foot (principal)
CPT/HCPCS: 96365; 96367; J0878; A4216; J3490

== ENCOUNTER 2021-09-27 08:54 | Inpatient (IN) | payer OTHER, SELFPAY ==
[2021-09-27] VITALS (8 sets, daily range): BP systolic 85–134; BP diastolic 63–91; PULSE 77–113; RESP 16–18; TEMP 36.6–36.8; O2SAT 95–98; BMI 23.7; BMI 22.9
--- NOTE | 2021-09-27 09:09 | RAD_ITS ---
STUDY: X-RAY - LEFT FOOT CLINICAL: Male, 60 years old. Foot infection. TECHNIQUE: 3 view(s) of the foot. COMPARISON: Comparison is made with prior study dated 08/01/2021. FINDINGS: There is an enthesophyte involving the posterior superior calcaneus at the site of insertion of the Achilles tendon. Plantar spur. Normal visualized subtalar, talonavicular, calcaneocuboid, tarsal and tarsometatarsal articulations. The patient is status post resection of the distal aspect of the third metatarsal and third toe. There is degenerative arthrosis of the metatarsophalangeal joint of the hallux . Normal tibial and fibular sesamoid bones. Normal interphalangeal joint of the great toe. Normal phalanges of the great toe. Normal second through fifth metatarsophalangeal joints. Normal interphalangeal joints and phalanges of the lesser toes. Vascular calcification. Soft tissue swelling overlying the third metatarsal. RAD/Foot min 3 Views IMPRESSION: Status post resection of the distal portion of the third metatarsal and third toe with overlying soft tissue swelling. Calcaneal spurs. Electronically Signed: Terrance Miller MD at 9:56 EDT ,
--- NOTE | 2021-09-27 09:10 | EKG12_ITS ---
Test Reason : PRE-OP Blood Pressure : / mmHG Vent. Rate : 102 BPM Atrial Rate : 102 BPM P-R Int : 144 ms QRS Dur : 086 ms QT Int : 332 ms P-R-T Axes : 105 081 199 degrees QTc Int : 432 ms Sinus tachycardia with occasional Premature ventricular complexes Lateral infarct , age undetermined Inferior infarct , age undetermined Abnormal ECG Confirmed by JOHN HALL, MILAGROS ([id number]), food editor LORE ROGERS ([id number]) on 09/28/2021 9:20:06 AM Referred By: EKTA Confirmed By:CRYSTAL LOPEZ MD
--- NOTE | 2021-09-27 09:15 | EDS_ITS ---
HPI History of Present Illness Chief Complaint: Lower Extremity Injury Detail of Chief Complaint: Left foot infection Informant: patient Narrative Narrative: Patient presents stating that Dr. Watters wants the patient admitted for surgery. Patient has been battling left toe infections since April. He had the third toe amputated approximately 2 months ago. The fourth toe is now dying and Dr. Watters states he needs to amputated. Patient did have open heart surgery at [facility] 1 month ago. He denies fever or chills. He states he is currently on Keflex but then also mentions that he comes in for daily infusions. [facility] Medical History Arthritis Atherosclerotic heart disease of [place] coronary artery without angina pectoris Back pain due to injury Chronic cough Diabetes Diabetes type 2, uncontrolled Essential hypertension Former tobacco use Hyperlipidemia Ischemic cardiomyopathy Non-pressure chronic ulcer of other part of left foot with fat layer exposed Non-pressure chronic ulcer of other part of left foot with necrosis of bone Osteomyelitis of foot, left, acute Peripheral vascular disease, unspecified Restless legs Uncontrolled type 2 diabetes mellitus Home Medications empagliflozin 25 mg tablet (Jardiance) 25 mg PO DAILY DM 05/25/21 [History Last Taken 05/25/21] gabapentin 800 mg tablet 800 mg PO TID pain 05/25/21 [History Last Taken 07/31/21] metformin 1,000 mg tablet 1,000 mg PO BID DM 05/25/21 [History Last Taken 05/25/21] semaglutide 1 mg/dose (4 mg/3 mL) subcutaneous pen injector (Ozempic) 1 mg subcut FR DM 05/25/21 [History Last Taken 05/19/21] trazodone 100 mg tablet 100 mg PO QHS sleep 05/25/21 [History Last Taken 05/24/21] clopidogrel 75 mg tablet (Plavix) 75 mg PO DAILY blood thinner 07/11/21 [History Last Taken Unknown] aspirin 81 mg capsule 81 mg PO DAILY 09/07/21 [History Last Taken Unknown] atorvastatin 80 mg tablet 80 mg PO QHS 09/19/21 [History Last Taken Unknown] metoprolol succinate 25 mg tablet,extended release 24 hr 25 mg PO DAILY 09/19/21 [History Last Taken Unknown] oxycodone 5 mg tablet 5 mg PO Q6H PRN pain 09/19/21 [History Last Taken Unknown] Allergy/AdvReac Type Severity Reaction Status Date / Time No Known Allergies Allergy Verified 09/27/21 08:55 Family History Mother Hypertension CVA (cerebral vascular accident) Diabetes Surgical History H/O coronary artery bypass surgery (08/31/21) H/O spinal fusion History of left heart catheterization (07/31/21) S/P hardware removal Social History household members: spouse Smoking Status: Former smoker how long ago did patient quit smoking: Quit 1987, smoked 1.5 ppd since teen. alcohol intake: never substance use type: does not use ROS ROS ED Constitutional Constitutional ED: Denies chills or fever(s) Eyes Eyes: Denies change in vision or discharge from eye(s) ENT ENT ED: Denies discharge from eye(s), rhinorrhea or sore throat Cardiovascular Cardiovascular: Denies chest pain or palpitations Respiratory/Chest Respiratory/Chest: Denies cough or dyspnea Gastrointestinal Gastrointestinal: Denies abdominal pain, nausea or vomiting Genitourinary Genitourinary ED: Denies difficulty urinating or dysuria Musculoskeletal Musculoskeletal: Reports extremity pain; Denies back pain Integumentary Denies Abrasions or rash Neurologic Neurologic: Denies headache(s) or weakness Psychiatric Psychiatric: Denies anxiety or depression Allergic/Immunologic Allergic/Immunologic ED: Denies lip swelling or urticaria EXAM Physical Exam Narrative Exam Narrative: Patient sitting upright in bed no acute distress. Nontoxic-appearing. Although initial blood pressure was low in triage repeat on arrival to the room is improved at 115/91. Const Vital Signs: 09/27/21 08:55 09/27/21 09:09 09/27/21 09:09 Temperature 98.3 F 98.3 F Temperature Source Temporal Temporal Pulse Rate 113 H 113 H Respiratory Rate 18 18 Blood Pressure 85/63 L 115/91 H 115/91 H Blood Pressure Mean 70 99 99 Pulse Ox 97 98 Oxygen Delivery Method Room Air Room Air Positive well nourished and well developed General Appearance ED: well developed HEENT Reports moist mucous membranes Neck no lymphadenopathy Chest Wall inspection of chest normal and palpation of chest normal Resp normal respiratory effort and clear to auscultation bilaterally Cardio regular rate and regular rhythm GI non-tender Auscultation: hypoactive bowel sounds Palpation: soft Extremity Extremity Narrative: Skin ulceration along the medial aspect of the left foot at the first MTP joint. Left third toe previously amputated. Left fourth toe with black eschar noted. Wound noted on the plantar surface of the foot with packing in place. No significant erythema or drainage. Neuro oriented x3 Psych mental status grossly normal MDM MDM MDM Narrative Medical decision making narrative: Lab work obtained along with blood cultures. EKG and chest x-ray obtained for preop clearance. Left foot x-rays obtained. Previous cultures were reviewed and patient is given a dose of IV Zosyn. Lab Data Attestation: I reviewed the patient's lab results. Labs: Laboratory Results - last 24 hr 09/27/21 09/27/21 09/27/21 08:25 08:25 08:25 WBC 9.6 RBC 3.44 L Hgb 9.3 L Hct 30.0 L MCV 87.2 MCH 27.0 MCHC 31.0 L RDW Std Deviation 43.9 RDW Coeff of Imtiaz 14.0 Plt Count 404 MPV 9.5 Immature Gran % (Auto) 0.300 Neut % (Auto) 69.8 Lymph % (Auto) 19.7 [place] % (Auto) 5.0 Eos % (Auto) 4.6 Baso % (Auto) 0.6 Absolute Neuts (auto) 6.7 Absolute Lymphs (auto) 1.88 Nucleated RBC % 0 ESR > 130 H Sodium 134 L Potassium 4.3 Chloride 101 Carbon Dioxide 27.0 Anion Gap 6 BUN 21 H Creatinine 0.93 Estim Creat Clear Calc 92.21 Est GFR (MDRD) Af Amer 107 Est GFR (MDRD) Non-Af 88 BUN/Creatinine Ratio 22.5 H Glucose 271 H Lactic Acid 1.5 Calcium 9.3 C-React Prot Ext Range 21.50 H Radiography Diagnostic Testing: Clinical Impression(s) from Imaging Studies Foot X-Ray 09/27/21 09:09 IMPRESSION: Status post resection of the distal portion of the third metatarsal and third toe with overlying soft tissue swelling. Calcaneal spurs. Electronically Signed: Terrance Miller MD at 9:56 EDT , Chest X-Ray 09/27/21 09:35 IMPRESSION: Increased markings at the lung bases suggestive of scarring. Electronically Signed: Terrance Miller MD at 10:05 EDT , EKG Initial EKG: Attestation: I personally reviewed and interpreted this EKG as follows: Interpretation: Sinus Tachycardia (Sinus tach at 102. T wave inversion noted in the lateral precordial leads. No acute ST change.) Treatment and Re-Evaluation Narrative: Chest x-ray per my interpretation reveals chronic changes. Left foot x-rays reveals prior amputation with soft tissue swelling. No focal bony lesions noted. Blood work reveals normal white count at 9.6 with no left shift. Sed rate is greater than 130. CRP is 21.5. Lactic acid is 1.5. Patient has IV fluids running. Blood pressure is currently 97/78. Patient states that his blood pressure does tend to run low in the morning and then increase as the day goes. He does not appear acutely septic. I will speak with podiatry as well as hospitalist for admission. Discharge Plan Triage Chief Complaint: Lower Extremity Injury Other Complaint: General Illness Wound ED Provider: Greta Lima Dx/Rx/DC Orders Clinical Impression: Diabetic foot infection Prescriptions: No Action oxycodone 5 mg tablet 5 mg PO Q6H PRN (Reason: pain) atorvastatin 80 mg tablet 80 mg PO QHS metoprolol succinate 25 mg tablet extended release 24 hr 25 mg PO DAILY gabapentin 800 mg tablet 800 mg PO TID trazodone 100 mg tablet 100 mg PO QHS metformin 1,000 mg tablet 1,000 mg PO BID Label Comments: TAKE 1 TABLET BY MOUTH TWICE A DAY Jardiance 25 mg tablet 25 mg PO DAILY Label Comments: TAKE 1 TABLET BY MOUTH EVERY DAY IN THE MORNING Ozempic 1 mg/dose (4 mg/3 mL) pen injector 1 mg SUBCUT FR Label Comments: 1 MG SUBCUTANEOUS EVERY WEEK FOR 90 DAY(S) Rx Instructions: weekly clopidogrel [Plavix] 75 mg Tablet 75 mg PO DAILY aspirin 81 mg Capsule 81 mg PO DAILY Primary Care Provider: Javy Alcaraz Referrals: Javy Alcaraz DO [Primary Care Provider] - Disposition Disposition: Acute Care Hospital [facility]
[2021-09-27] MEDS: 0.9% Normal Saline 1,000 ML 150 ML IV (09:24)
--- NOTE | 2021-09-27 09:35 | RAD_ITS ---
STUDY: X-RAY CHEST REASON FOR EXAM: Male, 60 years old. Preoperative evaluation. TECHNIQUE: Single AP portable view of the chest. COMPARISON: Comparison is made with prior study dated 07/26/2021. FINDINGS: EKG electrodes are seen. Mild residual increased markings at the lung bases suggestive of scarring. There is no demonstrated pleural abnormality. Sternal cerclage wires and vascular clips are present from a prior sternotomy and coronary artery bypass graft procedure (CABG). Normal mediastinum and patricia. Normal visualized pulmonary arteries. There is atherosclerotic calcification of the aortic arch with tortuosity. There is an increased kyphosis of the thoracic spine. Normal visualized ribs, clavicles, and shoulders. There is no demonstrated abnormality of the visualized soft tissue structures of the upper abdomen. RAD/Chest 1 View (Portable) IMPRESSION: Increased markings at the lung bases suggestive of scarring. Electronically Signed: Terrance Miller MD at 10:05 EDT ,
[2021-09-27 09:39] LABS: Erythrocyte Sedimentation Rate > 130 mm/hr (0-20)
[2021-09-27 09:41] LABS: Absolute Lymphocyte Count 1.88 X10^3/uL (0.83-4.51); Absolute Neutrophil Count 6.7 X10^3/uL (2.0-7.7); Basophil# 0.06 X10^3/uL; Basophil% 0.6 % (0-1); Eosinophil# 0.44 X10^3/uL; Eosinophils% 4.6 % (0-5); Hemoglobin 9.3 g/dL (13.0-16.5); Lymphocyte # 1.88 X10^3/ul (0.83-4.51); Lymphocyte % 19.7 % (19-41); Mean Corpuscular Volume 87.2 fL (80-94); Mean Platelet Vol. 9.5 fl (6.2-12.0); Monocyte# 0.48 X10^3/uL; NRBC Flagged by Analyzer 0 % (0-5); Neutrophil # 6.66 X10^3/uL (2.7-7.7); Neutrophil % 69.8 % (47-70); Platelet Count 404 K/mm3 (150-450); RBC Distribution Width SD 43.9 fl (35.1-43.9); Red Blood Count 3.44 M/mm3 (4.6-6.2); White Blood Count 9.6 K/mm3 (4.4-11.0)
[2021-09-27 09:50] LABS: Anion Gap 6 (5-15); BUN 21 mg/dL (7-18); BUN/Creat Ratio 22.5 RATIO (10-20); Calcium,Total 9.3 mg/dL (8.5-10.1); Chloride 101 mmol/L (98-107); Creatinine, Serum 0.93 mg/dL (0.70-1.30); EST Glomerular Filtration Rate 88 mL/min (>60); Est Glom Filt Rate - Afr Amer 107 mL/min (>60); Estimated Creatinine Clearance 92.21 ml/min; Glucose 271 mg/dL (74-106); Potassium 4.3 mmol/L (3.5-5.1); Sodium Level 134 mmol/L (136-145)
[2021-09-27 10:04] LABS: Lactic Acid 1.5 mmol/L (0.4-1.9)
--- NOTE | 2021-09-27 10:39 | NURSING ---
MED SURG TERELETSKY DIABETIC FOOT INFECTION
--- NOTE | 2021-09-27 11:37 | PCM.HP.STD ---
Documented by User: JAMIA Petit 09/27/21 11:59 HPI - General General Date of Admission: 09/27/21 Date of Service: 09/27/21 HPI Narrative NAYELI JOSE, is a 60 M who presents at the direction of Dr. Watters for diabetic foot wounds. Patient has family history of hypertension, CABG x4, diabetes mellitus type 2, hyperlipidemia. Patient underwent CABG approximately 1 month ago. Patient has also been seen by Dr. Maciel outpatient for vascular issues. Patient had vascular studies done approximately [address] Maciel was consulted at patient's admission and will see patient. Plan is for patient to go to surgery tomorrow. [facility] Medical History Arthritis Atherosclerotic heart disease of [place] coronary artery without angina pectoris Back pain due to injury Chronic cough Diabetes Diabetes type 2, uncontrolled Essential hypertension Former tobacco use Hyperlipidemia Ischemic cardiomyopathy Non-pressure chronic ulcer of other part of left foot with fat layer exposed Non-pressure chronic ulcer of other part of left foot with necrosis of bone Osteomyelitis of foot, left, acute Peripheral vascular disease, unspecified Restless legs Uncontrolled type 2 diabetes mellitus Home Medications empagliflozin 25 mg tablet (Jardiance) 25 mg PO DAILY DM 05/25/21 [History Last Taken 05/25/21] gabapentin 800 mg tablet 800 mg PO TID pain 05/25/21 [History Last Taken 07/31/21] metformin 1,000 mg tablet 1,000 mg PO BID DM 05/25/21 [History Last Taken 05/25/21] semaglutide 1 mg/dose (4 mg/3 mL) subcutaneous pen injector (Ozempic) 1 mg subcut FR DM 05/25/21 [History Last Taken 05/19/21] trazodone 100 mg tablet 100 mg PO QHS sleep 05/25/21 [History Last Taken 05/24/21] clopidogrel 75 mg tablet (Plavix) 75 mg PO DAILY blood thinner 07/11/21 [History Last Taken Unknown] aspirin 81 mg capsule 81 mg PO DAILY 09/07/21 [History Last Taken Unknown] atorvastatin 80 mg tablet 80 mg PO QHS 09/19/21 [History Last Taken Unknown] metoprolol succinate 25 mg tablet,extended release 24 hr 25 mg PO DAILY 09/19/21 [History Last Taken Unknown] oxycodone 5 mg tablet 5 mg PO Q6H PRN pain 09/19/21 [History Last Taken Unknown] Allergy/AdvReac Type Severity Reaction Status Date / Time No Known Allergies Allergy Verified 09/27/21 08:55 Family History Mother Hypertension CVA (cerebral vascular accident) Diabetes Surgical History H/O coronary artery bypass surgery (08/31/21) H/O spinal fusion History of left heart catheterization (07/31/21) S/P hardware removal Social History household members: spouse Smoking Status: Former smoker how long ago did patient quit smoking: Quit 1987, smoked 1.5 ppd since teen. alcohol intake: never substance use type: does not use ROS Constitutional Constitutional: Denies anorexia, chills, fatigue, malaise or weakness Cardiovascular Cardiovascular: Denies chest pain, edema or palpitations Respiratory/Chest Respiratory/Chest: Denies cough, shortness of breath at rest, shortness of breath with exertion or wheezing Gastrointestinal Gastrointestinal: Denies abdominal pain, constipation, diarrhea, nausea or vomiting Genitourinary Genitourinary: Denies dysuria Musculoskeletal Musculoskeletal: Denies back pain Integumentary Integumentary: Denies dry skin Neurologic Neurologic: Denies abnormal gait, abnormal speech or confusion Psychiatric Psychiatric: Denies anxiety or depression Endocrine Endocrinology: Denies change in body appearance Hematologic/Lymphatic Hematologic/Lymphatic: Denies anemia Vital Signs Vital Signs Vital Signs: 09/27/21 08:55 09/27/21 09:09 09/27/21 09:09 Temperature 98.3 F 98.3 F Temperature Source Temporal Temporal Pulse Rate 113 H 113 H Respiratory Rate 18 18 Blood Pressure 85/63 L 115/91 H 115/91 H Blood Pressure Mean 70 99 99 Pulse Ox 97 98 Oxygen Delivery Method Room Air Room Air 09/27/21 10:12 09/27/21 10:43 Temperature 98.3 F 98.3 F Temperature Source Temporal Temporal Pulse Rate 104 H 104 H Respiratory Rate 16 18 Blood Pressure 97/78 105/78 Blood Pressure Mean 84 87 Pulse Ox 98 98 Oxygen Delivery Method Room Air Weight Weight: 164 lb 10.965 oz Body Mass Index (BMI) 22.9 Physical Exam Const alert, oriented x3 and no apparent distress HEENT normocephalic and head/scalp atraumatic Eyes conjunctivae normal and no scleral icterus Neck no lymphadenopathy and supple General: trachea midline Resp normal respiratory effort, normal air movement and clear to auscultation bilaterally Cardio regular rate, regular rhythm, S1 normal heart sound and S2 normal heart sound GI normal to inspection, nondistended, normoactive bowel sounds, soft to palpation and non-tender Extremity Extremity Narrative: Wound noted to the medial aspect of the left foot at the first MTP joint. Left third toe previously amputated, left fourth toe black eschar noted. Patient also has a wound to the plantar surface of the foot with packing in place Skin Wounds: wounds noted Wound Narrative: Wound noted to the medial aspect of the left foot at the first MTP joint. Left third toe previously amputated, left fourth toe black eschar noted. Patient also has a wound to the plantar surface of the foot with packing in place Neuro no focal motor deficits and no sensory deficits noted Psych thought process normal and cooperative Results Lab / Micro Data Result Diagrams: 09/27/21 08:25 09/27/21 08:25 Labs: Laboratory Results - last 24 hr 09/27/21 08:25: WBC 9.6, RBC 3.44 L, Hgb 9.3 L, Hct 30.0 L, MCV 87.2, MCH 27.0, MCHC 31.0 L, RDW Std Deviation 43.9, RDW Coeff of Imtiaz 14.0, Plt Count 404, MPV 9.5, Immature Gran % (Auto) 0.300, Neut % (Auto) 69.8, Lymph % (Auto) 19.7, [place] % (Auto) 5.0, Eos % (Auto) 4.6, Baso % (Auto) 0.6, Absolute Neuts (auto) 6.7, Absolute Lymphs (auto) 1.88, Nucleated RBC % 0, ESR > 130 H 09/27/21 08:25: Sodium 134 L, Potassium 4.3, Chloride 101, Carbon Dioxide 27.0, Anion Gap 6, BUN 21 H, Creatinine 0.93, Estim Creat Clear Calc 92.21, Est GFR (MDRD) Af Amer 107, Est GFR (MDRD) Non-Af 88, BUN/Creatinine Ratio 22.5 H, Glucose 271 H, Calcium 9.3, C-React Prot Ext Range 21.50 H 09/27/21 08:25: Lactic Acid 1.5 Radiology Impression Foot X-Ray 09/27/21 09:09 IMPRESSION: Status post resection of the distal portion of the third metatarsal and third toe with overlying soft tissue swelling. Calcaneal spurs. Electronically Signed: Terrance Miller MD at 9:56 EDT , Chest X-Ray 09/27/21 09:35 IMPRESSION: Increased markings at the lung bases suggestive of scarring. Electronically Signed: Terrance Miller MD at 10:05 EDT , Assessment & Plan Assessment/Plan (1) Diabetic foot infection: PLAN: Plan 1. Diabetic foot wound -Admit to MedSurg -Consult Dr. Watters and Dr. Maciel -Diabetic diet ordered, n.p.o. at midnight for pending surgery -PT and OT to eval and treat following surgery -Consult wound nurse -Elevate extremities -CBC, CMP, PT/INR, hemoglobin A1c ordered for a.m. -Continue routine gabapentin and oxycodone as needed for pain -CRP 21.5 2. Diabetes mellitus type 2 -Continue Jardiance, hold metformin -ACH S blood sugars and sign scale insulin ordered 3. Hypertension -continue metoprolol -Vital signs per protocol, currently stable 4. CAD -patient had CABG times four 1 month ago -Continue atorvastatin -Plavix and aspirin on hold for pending surgery DVT prophylaxis-SCDs This patient was seen by Alisha Orourke NP-C under the supervision of Dr. Santana. 29 minutes spent in clinical coordination of patient's plan of care. Documented by User: Dr. Chacho Santana DO 09/27/21 19:23 HPI - General General Date of Admission: 09/27/21 PFSH Medical History Arthritis Atherosclerotic heart disease of [place] coronary artery without angina pectoris Back pain due to injury Chronic cough Diabetes Diabetes type 2, uncontrolled Essential hypertension Former tobacco use Hyperlipidemia Ischemic cardiomyopathy Non-pressure chronic ulcer of other part of left foot with fat layer exposed Non-pressure chronic ulcer of other part of left foot with necrosis of bone Osteomyelitis of foot, left, acute Peripheral vascular disease, unspecified Restless legs Uncontrolled type 2 diabetes mellitus Home Medications empagliflozin 25 mg tablet (Jardiance) 25 mg PO DAILY DM 05/25/21 [History Last Taken 05/25/21] gabapentin 800 mg tablet 800 mg PO TID pain 05/25/21 [History Last Taken 07/31/21] metformin 1,000 mg tablet 1,000 mg PO BID DM 05/25/21 [History Last Taken 05/25/21] semaglutide 1 mg/dose (4 mg/3 mL) subcutaneous pen injector (Ozempic) 1 mg subcut FR DM 05/25/21 [History Last Taken 05/19/21] trazodone 100 mg tablet 100 mg PO QHS sleep 05/25/21 [History Last Taken 05/24/21] clopidogrel 75 mg tablet (Plavix) 75 mg PO DAILY blood thinner 07/11/21 [History Last Taken Unknown] aspirin 81 mg capsule 81 mg PO DAILY 09/07/21 [History Last Taken Unknown] atorvastatin 80 mg tablet 80 mg PO QHS 09/19/21 [History Last Taken Unknown] metoprolol succinate 25 mg tablet,extended release 24 hr 25 mg PO DAILY 09/19/21 [History Last Taken Unknown] oxycodone 5 mg tablet 5 mg PO Q6H PRN pain 09/19/21 [History Last Taken Unknown] Allergy/AdvReac Type Severity Reaction Status Date / Time No Known Allergies Allergy Verified 09/27/21 08:55 Family History Mother Hypertension CVA (cerebral vascular accident) Diabetes Surgical History H/O coronary artery bypass surgery (08/31/21) H/O spinal fusion History of left heart catheterization (07/31/21) S/P hardware removal Social History household members: spouse Smoking Status: Former smoker how long ago did patient quit smoking: Quit 1987, smoked 1.5 ppd since teen. alcohol intake: never substance use type: does not use Results Lab / Micro Data Result Diagrams: 09/27/21 08:25 09/27/21 08:25 Assessment & Plan Assessment/Plan (1) Diabetic foot infection: Charges/Coding Addendum Addendum: Patient was seen and examined independently of Svetlana Orourke today, he came to the ER today at direction of podiatry due to a severe neuropathic foot wound on his left foot including his plantar midfoot area and his third ray resection site (remote resection). The plan was for the patient be evaluated in ER and then admitted for possible surgery tomorrow, due to scheduling conflicts, this surgery cannot be done tomorrow. In addition patient has had vascular studies performed 2 weeks ago-I called on the studies and found out that he has left popliteal arterial occlusive disease and will need intervention by vascular surgery-I talked with Dr. Perry Maciel about this and he is willing to take the patient for an intervention tomorrow to take care of this. Finally, I have talked with Dr. Watters who is the patient's sales representative adding machines about the patient's care and about the patient's admission to the hospital today. On examination he appeared in good health and spirits. Vital signs as documented. Skin warm and dry and without overt rashes, there were foot wounds noted on the left foot including the third ray area, an area over the fourth ray that appears gangrenous, and open area proximal to the third ray area,, the plantar midfoot area, and the side of the great toe area.. Neck without JVD, neck was supple, trachea midline, thyroid was normal. Lungs clear bilaterally, normal air movement was noted. Heart exam notable for regular rhythm, normal sounds and absence of murmurs, rubs or gallops. Abdomen unremarkable and without evidence of organomegaly, masses, or abdominal aortic enlargement. Bowel sounds are present, abdomen is not distended. Extremities nonedematous, no cyanosis was noted, no clubbing was noted. Neuro: Cranial nerves II through XII are grossly intact, no focal motor deficits were noted, there is decreased sensation to light touch over the feet bilaterally, motor exam 5/5 throughout. Psych: Patient is alert and oriented x3, he does not appear anxious or depressed, he does not appear agitated. Impression: #1 left foot neuropathic wound infection-patient will be admitted to [facility], he will be seen by podiatry, he will need intervention by vascular surgery tomorrow, it is pending that he will have surgery this Saturday. Patient will be placed on Zosyn. #2 peripheral vascular disease-chiefly involving the posterior tibial artery on the left leg-patient will be seen by Dr. Maciel and he will plan on an intervention tomorrow. Patient will be n.p.o. after midnight #3 type 2 diabetes-under questionable control at this time, patient states his last hemoglobin A1c was 8.5, he is not on insulin, he is only on oral medications at this point. Patient's maintains that his hemoglobin A1c had been under good control at 1 time on oral medications. #4 coronary artery disease-recent coronary artery bypass grafting x4 in August 2021-I obtain some echo reports on the patient from [facility], it shows a moderate decrease in his LV function-this was on a LENORA, and there was no actual EF charted. #5 hyperlipidemia-patient is on a statin I have reviewed Svetlana Orourke's history and physical including her medical assessment and plan of care and with the above additions endorse it. Total clinical time spent by myself addressing the patient's medical issues, reviewing the data, and collaborating with patient's care team: 60 minutes Visit Charges Inpatient E&M: [id number] In Hosp L3
--- NOTE | 2021-09-27 12:35 | WOUNDNOTE ---
wound photo: left plantar foot
--- NOTE | 2021-09-27 12:35 | WOUNDNOTE ---
wound photo: left medial foot
--- NOTE | 2021-09-27 12:36 | WOUNDNOTE ---
wound photo: left foot
[2021-09-27] MEDS: Gabapentin 800 MG Tablet PO ×2 (12:48→21:57)
[2021-09-27 14:06] LABS: M R Staph aureus DNA By PCR Negative (Negative); Probe Check PASS; Specimen Processing Control PASS; Staph aureus DNA By PCR NEGATIVE (Negative)
[2021-09-27] MEDS: Insulin Lispro 100 UNIT/ML INSULN.PEN SC ×2 (16:22→21:56)
[2021-09-27 16:45] LABS: Bedside Glucose 280 mg/dL (74-106)
--- NOTE | 2021-09-27 17:04 | PCM.CONS.GEN ---
Assessment & Plan Assessment/Plan (1) Peripheral vascular disease, unspecified: PLAN: Patient examined and evaluated, all findings discussed with patient in detail radiographs reviewed arterial studies reviewed, demonstrate occluded popliteal artery on left, possible vascular intervention on 09/28/2021. Left foot wound infected, ESR >120, no leukocytosis, vital signs stable. Patient receiving IV zosyn 3.375g q8. previous cultures enterococcus faecalis, enterobacter cloacae, e. coli. At this time patient should remain heel weightbearing in surgical shoe for transfer purposes on left I will plan for left 4th digit amputation with wound flush out on Saturday at 1:45pm. Will await vascular intervention for definitive plan. Will consider ID consult once operative cultures received. Will continue to follow the patient daily. (2) Diabetic foot infection: (3) Non-pressure chronic ulcer of other part of left foot with necrosis of bone: (4) Osteomyelitis of foot, acute: HPI Consult Data Date of Consult: 09/27/21 HPI Narrative HPI Narrative: This 60 year old male admitted to hospital for chronic left foot ulcerations in setting of diabetes with PAD.? Patient has dry gangrene to his left fourth toe with non-healing wounds to his left foot.? Patient recently underwent coronary artery bypass grafting at [facility] in 08/2021.? He is recovering well from that, but his left foot wounds have degenerated since that time.? He denies any fever, chills, nausea, vomiting, chest pain, calf pain or shortness of breath at current.? He denies any pain to his left foot.? He has been compliant with treatment in the wound center and is adamently against amputation to the left foot.? No other complaints at this time. [facility] Medical History Arthritis Atherosclerotic heart disease of [place] coronary artery without angina pectoris Back pain due to injury Chronic cough Diabetes Diabetes type 2, uncontrolled Essential hypertension Former tobacco use Hyperlipidemia Ischemic cardiomyopathy Non-pressure chronic ulcer of other part of left foot with fat layer exposed Non-pressure chronic ulcer of other part of left foot with necrosis of bone Osteomyelitis of foot, left, acute Peripheral vascular disease, unspecified Restless legs Uncontrolled type 2 diabetes mellitus Home Medications empagliflozin 25 mg tablet (Jardiance) 25 mg PO DAILY DM 05/25/21 [History Last Taken 05/25/21] gabapentin 800 mg tablet 800 mg PO TID pain 05/25/21 [History Last Taken 07/31/21] metformin 1,000 mg tablet 1,000 mg PO BID DM 05/25/21 [History Last Taken 05/25/21] semaglutide 1 mg/dose (4 mg/3 mL) subcutaneous pen injector (Ozempic) 1 mg subcut FR DM 05/25/21 [History Last Taken 05/19/21] trazodone 100 mg tablet 100 mg PO QHS sleep 05/25/21 [History Last Taken 05/24/21] clopidogrel 75 mg tablet (Plavix) 75 mg PO DAILY blood thinner 07/11/21 [History Last Taken Unknown] aspirin 81 mg capsule 81 mg PO DAILY 09/07/21 [History Last Taken Unknown] atorvastatin 80 mg tablet 80 mg PO QHS 09/19/21 [History Last Taken Unknown] metoprolol succinate 25 mg tablet,extended release 24 hr 25 mg PO DAILY 09/19/21 [History Last Taken Unknown] oxycodone 5 mg tablet 5 mg PO Q6H PRN pain 09/19/21 [History Last Taken Unknown] Allergy/AdvReac Type Severity Reaction Status Date / Time No Known Allergies Allergy Verified 09/27/21 08:55 Family History Mother Hypertension CVA (cerebral vascular accident) Diabetes Surgical History H/O coronary artery bypass surgery (08/31/21) H/O spinal fusion History of left heart catheterization (07/31/21) S/P hardware removal Social History household members: spouse Smoking Status: Former smoker how long ago did patient quit smoking: Quit 1987, smoked 1.5 ppd since teen. alcohol intake: never substance use type: does not use ROS Constitutional Constitutional: Denies anorexia, chills, fatigue, fever(s), malaise or weakness Eyes Eyes: Denies change in vision or discharge from eye(s) ENT HEENT: Denies rhinorrhea or sore throat Cardiovascular Cardiovascular: Denies chest pain, edema or palpitations Respiratory/Chest Respiratory/Chest: Denies cough, dyspnea, shortness of breath at rest, shortness of breath with exertion or wheezing Gastrointestinal Gastrointestinal: Denies abdominal pain, constipation, diarrhea, nausea or vomiting Genitourinary Genitourinary: Denies difficulty urinating or dysuria Musculoskeletal Musculoskeletal: Reports extremity pain; Denies back pain Integumentary Integumentary: Denies dry skin or rash Neurologic Neurologic: Denies abnormal gait, abnormal speech, confusion, headache(s) or weakness Psychiatric Psychiatric: Denies anxiety or depression Endocrine Endocrinology: Denies change in body appearance Hematologic/Lymphatic Hematologic/Lymphatic: Denies anemia Allergic/Immunologic Allergic/Immunologic: Denies lip swelling or urticaria Physical Exam Narrative Patient alert oriented person place time. Vascular: Diminished dorsalis pedis posterior tibial pulses left lower extremity. Atrophic skin changes. Necrotic left fourth digit. Nonhealing left foot wounds. Neurologic: Light touch protective sensation absent to bilateral feet. Dermatologic: Full-thickness ulceration noted to the left partial third ray resection site with necrotic left fourth digit this communicates with the plantar midfoot wound along the plantar vault. The plantar fascia is exposed at the level of the plantar midfoot incision. There is a new wound associated with the medial left hallux was demonstrating demarcating necrosis. Musculoskeletal: Absent left third digit. Muscular strength full to bilateral lower extremity compartments. No pain with calf squeeze bilaterally. Lab / Micro Data Result Diagrams: 09/27/21 08:25 09/27/21 08:25 Labs: Laboratory Results - last 24 hr 09/27/21 08:25: WBC 9.6, RBC 3.44 L, Hgb 9.3 L, Hct 30.0 L, MCV 87.2, MCH 27.0, MCHC 31.0 L, RDW Std Deviation 43.9, RDW Coeff of Imtiaz 14.0, Plt Count 404, MPV 9.5, Immature Gran % (Auto) 0.300, Neut % (Auto) 69.8, Lymph % (Auto) 19.7, [place] % (Auto) 5.0, Eos % (Auto) 4.6, Baso % (Auto) 0.6, Absolute Neuts (auto) 6.7, Absolute Lymphs (auto) 1.88, Nucleated RBC % 0, ESR > 130 H 09/27/21 08:25: Sodium 134 L, Potassium 4.3, Chloride 101, Carbon Dioxide 27.0, Anion Gap 6, BUN 21 H, Creatinine 0.93, Estim Creat Clear Calc 92.21, Est GFR (MDRD) Af Amer 107, Est GFR (MDRD) Non-Af 88, BUN/Creatinine Ratio 22.5 H, Glucose 271 H, Calcium 9.3, C-React Prot Ext Range 21.50 H 09/27/21 08:25: Lactic Acid 1.5 09/27/21 12:00: S.aureus Protein A PCR NEGATIVE, MRSA (PCR) Negative 09/27/21 16:19: POC Glucose 280 H Radiology Impression Foot X-Ray 09/27/21 09:09 IMPRESSION: Status post resection of the distal portion of the third metatarsal and third toe with overlying soft tissue swelling. Calcaneal spurs. Electronically Signed: Terrance Miller MD at 9:56 EDT , Chest X-Ray 09/27/21 09:35 IMPRESSION: Increased markings at the lung bases suggestive of scarring. Electronically Signed: Terrance Miller MD at 10:05 EDT ,
--- NOTE | 2021-09-27 17:05 | PN_ITS ---
Subjective Subjective This 60 year old male admitted to hospital for chronic left foot ulcerations in setting of diabetes with PAD. Patient has dry gangrene to his left fourth toe with non-healing wounds to his left foot. Patient recently underwent coronary artery bypass grafting at [facility] in 08/2021. He is recovering well from that, but his left foot wounds have degenerated since that time. He denies any fever, chills, nausea, vomiting, chest pain, calf pain or shortness of breath at current. He denies any pain to his left foot. He has been compliant with treatment in the wound center and is adamently against amputation to the left foot. No other complaints at this time. Objective Data Objective Data Vital Signs: Vital Signs Temp Pulse Resp BP Pulse Ox O2 Del Method 98.0 F 80 16 122/80 H 95 Room Air 09/27/21 16:26 09/27/21 16:26 09/27/21 16:26 09/27/21 16:26 09/27/21 16:26 09/27/21 16:26 Oxygen Delivery Method Room Air Weight: 74.7 kg Body Mass Index (BMI) 22.9 Intake & Output: Intake and Output for Last 24 Hours 09/25/21 09/26/21 09/27/21 23:59 23:59 23:59 Intake Total 1050 / 1050 Balance 1050 / 1050 Lab / Micro Data Result Diagrams: 09/27/21 08:25 09/27/21 08:25 Labs: Laboratory Results - last 24 hr 09/27/21 08:25: WBC 9.6, RBC 3.44 L, Hgb 9.3 L, Hct 30.0 L, MCV 87.2, MCH 27.0, MCHC 31.0 L, RDW Std Deviation 43.9, RDW Coeff of Imtiaz 14.0, Plt Count 404, MPV 9.5, Immature Gran % (Auto) 0.300, Neut % (Auto) 69.8, Lymph % (Auto) 19.7, [place] % (Auto) 5.0, Eos % (Auto) 4.6, Baso % (Auto) 0.6, Absolute Neuts (auto) 6.7, Absolute Lymphs (auto) 1.88, Nucleated RBC % 0, ESR > 130 H 09/27/21 08:25: Sodium 134 L, Potassium 4.3, Chloride 101, Carbon Dioxide 27.0, Anion Gap 6, BUN 21 H, Creatinine 0.93, Estim Creat Clear Calc 92.21, Est GFR (MDRD) Af Amer 107, Est GFR (MDRD) Non-Af 88, BUN/Creatinine Ratio 22.5 H, Glucose 271 H, Calcium 9.3, C-React Prot Ext Range 21.50 H 09/27/21 08:25: Lactic Acid 1.5 09/27/21 12:00: S.aureus Protein A PCR NEGATIVE, MRSA (PCR) Negative 09/27/21 16:19: POC Glucose 280 H Radiography Diagnostic Testing: Radiology Impression Foot X-Ray 09/27/21 09:09 IMPRESSION: Status post resection of the distal portion of the third metatarsal and third toe with overlying soft tissue swelling. Calcaneal spurs. Electronically Signed: Terrance Miller MD at 9:56 EDT , Chest X-Ray 09/27/21 09:35 IMPRESSION: Increased markings at the lung bases suggestive of scarring. Electronically Signed: Terrance Miller MD at 10:05 EDT , Physical Exam Narrative Patient alert oriented person place time. Vascular: Diminished dorsalis pedis posterior tibial pulses left lower extremity. Atrophic skin changes. Necrotic left fourth digit. Nonhealing left foot wounds. Neurologic: Light touch protective sensation absent to bilateral feet. Dermatologic: Full-thickness ulceration noted to the left partial third ray resection site with necrotic left fourth digit this communicates with the plantar midfoot wound along the plantar vault. The plantar fascia is exposed at the level of the plantar midfoot incision. There is a new wound associated with the medial left hallux was demonstrating demarcating necrosis. Musculoskeletal: Absent left third digit. Muscular strength full to bilateral lower extremity compartments. No pain with calf squeeze bilaterally. Assessment & Plan Assessment/Plan (1) Peripheral vascular disease, unspecified: PLAN: Patient examined and evaluated, all findings discussed with patient in detail radiographs reviewed arterial studies reviewed, demonstrate occluded popliteal artery on left, possible vascular intervention on 09/28/2021. Left foot wound infected, ESR >120, no leukocytosis, vital signs stable. Patient receiving IV zosyn 3.375g q8. previous cultures enterococcus faecalis, enterobacter cloacae, e. coli. At this time patient should remain heel weightbearing in surgical shoe for transfer purposes on left I will plan for left 4th digit amputation with wound flush out on Saturday at 1:45pm. Will await vascular intervention for definitive plan. Will consider ID consult once operative cultures received. Will continue to follow the patient daily. (2) Diabetic foot infection: (3) Non-pressure chronic ulcer of other part of left foot with necrosis of bone: (4) Osteomyelitis of foot, acute:
[2021-09-27] MEDS: Empagliflozin 25 MG Tablet PO (21:57)
[2021-09-27] MEDS: Atorvastatin Calcium 80 MG Tablet PO (21:57)
[2021-09-27] MEDS: traZODone 100 MG Tablet PO (21:57)
[2021-09-27 23:10] LABS: Bedside Glucose 292 mg/dL (74-106)
[2021-09-28] VITALS (8 sets, daily range): BP systolic 110–144; BP diastolic 73–94; PULSE 78–93; RESP 16–18; TEMP 36.5–36.7; O2SAT 95–99
[2021-09-28 04:42] LABS: Absolute Lymphocyte Count 2.58 X10^3/uL (0.83-4.51); Absolute Neutrophil Count 4.3 X10^3/uL (2.0-7.7); Basophil# 0.04 X10^3/uL; Basophil% 0.5 % (0-1); Eosinophil# 0.41 X10^3/uL; Eosinophils% 5.3 % (0-5); Hematocrit 31.3 % (40-54); Hemoglobin 9.6 g/dL (13.0-16.5); Lymphocyte # 2.58 X10^3/ul (0.83-4.51); Lymphocyte % 33.1 % (19-41); Mean Corp Hgb Conc 30.7 g/dL (32-36); Mean Corpuscular Hgb 26.9 pg (27.0-32.0); Mean Corpuscular Volume 87.7 fL (80-94); Monocyte% 5.1 % (0-10); NRBC Flagged by Analyzer 0 % (0-5); Neutrophil # 4.34 X10^3/uL (2.7-7.7); Neutrophil % 55.7 % (47-70); Platelet Count 370 K/mm3 (150-450); RBC Distribution Width CV 13.9 % (11.6-14.6); RBC Distribution Width SD 44.7 fl (35.1-43.9); Red Blood Count 3.57 M/mm3 (4.6-6.2); White Blood Count 7.8 K/mm3 (4.4-11.0)
[2021-09-28 04:59] LABS: International Normalized Ratio 1.1; Prothrombin Time (Protime)PT. 13.7 SECONDS (11.7-14.9)
--- NOTE | 2021-09-28 05:00 | EKG12_ITS ---
Test Reason : PRE OP Blood Pressure : / mmHG Vent. Rate : 085 BPM Atrial Rate : 085 BPM P-R Int : 168 ms QRS Dur : 096 ms QT Int : 366 ms P-R-T Axes : 066 084 -09 degrees QTc Int : 435 ms Normal sinus rhythm Nonspecific T wave abnormality Abnormal ECG When compared with ECG of 27-SEP-2021 09:25, MANUAL COMPARISON REQUIRED, DATA IS UNCONFIRMED Confirmed by JOHN HALL, MILAGROS ([id number]), sound editor LORE ROGERS ([id number]) on 09/28/2021 1:34:15 PM Referred By: DANIEL Confirmed By:CRYSTAL LOPEZ MD
[2021-09-28 05:24] LABS: ALB/GLOB Ratio 0.6 RATIO (0.9-2.4); AST(SGOT) 12 U/L (15-37); Alanine Aminotransfer ALT/SGPT 14 U/L (16-61); Albumin, Serum 2.6 g/dL (3.2-5.0); Alkaline Phosphatase 85 U/L (45-117); Anion Gap 3 (5-15); BUN 24 mg/dL (7-18); BUN/Creat Ratio 25.3 RATIO (10-20); Chloride 103 mmol/L (98-107); Creatinine, Serum 0.95 mg/dL (0.70-1.30); EST Glomerular Filtration Rate 87 mL/min (>60); Est Glom Filt Rate - Afr Amer 105 mL/min (>60); Estimated Creatinine Clearance 89.55 ml/min; Globulin 4.5 g/dL (2.2-4.2); Glucose 136 mg/dL (74-106); Protein, Total 7.1 g/dL (6.4-8.2); Sodium Level 135 mmol/L (136-145)
[2021-09-28 07:51] LABS: Bedside Glucose 153 mg/dL (74-106)
[2021-09-28 07:53] LABS: Hemoglobin A1c 8.1 % (3.8-5.6)
--- NOTE | 2021-09-28 08:21 | PCM.CONS.GEN ---
Assessment & Plan Assessment/Plan (1) Non-pressure chronic ulcer of other part of left foot with fat layer exposed: (2) Peripheral vascular disease, unspecified: PLAN: Plan Patient with left leg PAD. We will plan for an angiogram with intervention. Risk benefits alternative discussed he agreed to proceed HPI Consult Data Date of Consult: 09/28/21 HPI Narrative Reason for Consultation: PAD HPI Narrative: NAYELI JOSE, is a 60 M who presents with worsening gangrene of his left foot. Duplex showed popliteal occlusion. Admitted into the medical service with antibiotics. He set for surgery with podiatry tomorrow. We discussed we do an angiogram with intervention today. COUNT INCLUDES THE [facility] Medical History Arthritis Atherosclerotic heart disease of [place] coronary artery without angina pectoris Back pain due to injury Chronic cough Diabetes Diabetes type 2, uncontrolled Essential hypertension Former tobacco use Hyperlipidemia Ischemic cardiomyopathy Non-pressure chronic ulcer of other part of left foot with fat layer exposed Non-pressure chronic ulcer of other part of left foot with necrosis of bone Osteomyelitis of foot, left, acute Peripheral vascular disease, unspecified Restless legs Uncontrolled type 2 diabetes mellitus Home Medications empagliflozin 25 mg tablet (Jardiance) 25 mg PO DAILY DM 05/25/21 [History Last Taken 05/25/21] gabapentin 800 mg tablet 800 mg PO TID pain 05/25/21 [History Last Taken 07/31/21] metformin 1,000 mg tablet 1,000 mg PO BID DM 05/25/21 [History Last Taken 05/25/21] semaglutide 1 mg/dose (4 mg/3 mL) subcutaneous pen injector (Ozempic) 1 mg subcut FR DM 05/25/21 [History Last Taken 05/19/21] trazodone 100 mg tablet 100 mg PO QHS sleep 05/25/21 [History Last Taken 05/24/21] clopidogrel 75 mg tablet (Plavix) 75 mg PO DAILY blood thinner 07/11/21 [History Last Taken Unknown] aspirin 81 mg capsule 81 mg PO DAILY 09/07/21 [History Last Taken Unknown] atorvastatin 80 mg tablet 80 mg PO QHS 09/19/21 [History Last Taken Unknown] metoprolol succinate 25 mg tablet,extended release 24 hr 25 mg PO DAILY 09/19/21 [History Last Taken Unknown] oxycodone 5 mg tablet 5 mg PO Q6H PRN pain 09/19/21 [History Last Taken Unknown] Allergy/AdvReac Type Severity Reaction Status Date / Time No Known Allergies Allergy Verified 09/27/21 08:55 Family History Mother Hypertension CVA (cerebral vascular accident) Diabetes Surgical History H/O coronary artery bypass surgery (08/31/21) H/O spinal fusion History of left heart catheterization (07/31/21) S/P hardware removal Social History household members: spouse Smoking Status: Former smoker how long ago did patient quit smoking: Quit 1987, smoked 1.5 ppd since teen. alcohol intake: never substance use type: does not use ROS ROS Narrative All negative except for the HPI Physical Exam Const Constitutional Narrative: Patient awake alert oriented No apparent distress Afebrile vital signs stable HEENT: Normocephalic atraumatic Pupils equal Moist mucous membrane Neck supple Chest nontender Lungs appear clear Heart appears regular Abdomen soft Extremities palpable radial pulses + palpable femoral Dressing intact left foot signals noted Lab / Micro Data Result Diagrams: 09/28/21 04:25 09/28/21 04:25 Labs: Laboratory Results - last 24 hr 09/27/21 08:25: WBC 9.6, RBC 3.44 L, Hgb 9.3 L, Hct 30.0 L, MCV 87.2, MCH 27.0, MCHC 31.0 L, RDW Std Deviation 43.9, RDW Coeff of Imtiaz 14.0, Plt Count 404, MPV 9.5, Immature Gran % (Auto) 0.300, Neut % (Auto) 69.8, Lymph % (Auto) 19.7, [place] % (Auto) 5.0, Eos % (Auto) 4.6, Baso % (Auto) 0.6, Absolute Neuts (auto) 6.7, Absolute Lymphs (auto) 1.88, Nucleated RBC % 0, ESR > 130 H 09/27/21 08:25: Sodium 134 L, Potassium 4.3, Chloride 101, Carbon Dioxide 27.0, Anion Gap 6, BUN 21 H, Creatinine 0.93, Estim Creat Clear Calc 92.21, Est GFR (MDRD) Af Amer 107, Est GFR (MDRD) Non-Af 88, BUN/Creatinine Ratio 22.5 H, Glucose 271 H, Calcium 9.3, C-React Prot Ext Range 21.50 H 09/27/21 08:25: Lactic Acid 1.5 09/27/21 12:00: S.aureus Protein A PCR NEGATIVE, MRSA (PCR) Negative 09/27/21 16:19: POC Glucose 280 H 09/27/21 21:54: POC Glucose 292 H 09/28/21 04:25: WBC 7.8, RBC 3.57 L, Hgb 9.6 L, Hct 31.3 L, MCV 87.7, MCH 26.9 L, MCHC 30.7 L, RDW Std Deviation 44.7 H, RDW Coeff of Imtiaz 13.9, Plt Count 370, MPV 9.0, Immature Gran % (Auto) 0.300, Neut % (Auto) 55.7, Lymph % (Auto) 33.1, [place] % (Auto) 5.1, Eos % (Auto) 5.3 H, Baso % (Auto) 0.5, Absolute Neuts (auto) 4.3, Absolute Lymphs (auto) 2.58, Nucleated RBC % 0 09/28/21 04:25: PT 13.7, INR 1.1 09/28/21 04:25: Sodium 135 L, Potassium 4.0, Chloride 103, Carbon Dioxide 29.0, Anion Gap 3 L, BUN 24 H, Creatinine 0.95, Estim Creat Clear Calc 89.55, Est GFR (MDRD) Af Amer 105, Est GFR (MDRD) Non-Af 87, BUN/Creatinine Ratio 25.3 H, Glucose 136 H, Calcium 9.0, Total Bilirubin 0.30, AST 12 L, ALT 14 L, Alkaline Phosphatase 85, Total Protein 7.1, Albumin 2.6 L, Globulin 4.5 H, Albumin/Globulin Ratio 0.6 L 09/28/21 04:25: Hemoglobin A1c 8.1 H 09/28/21 05:55: POC Glucose 153 H Radiology Impression Foot X-Ray 09/27/21 09:09 IMPRESSION: Status post resection of the distal portion of the third metatarsal and third toe with overlying soft tissue swelling. Calcaneal spurs. Electronically Signed: Terrance Miller MD at 9:56 EDT , Chest X-Ray 09/27/21 09:35 IMPRESSION: Increased markings at the lung bases suggestive of scarring. Electronically Signed: Terrance Miller MD at 10:05 EDT ,
--- NOTE | 2021-09-28 09:30 | PCM.OPRPT ---
Problems Associated Problem List Diagnoses (1) Peripheral vascular disease, unspecified: (2) Type 2 diabetes mellitus with diabetic polyneuropathy: (3) Non-pressure chronic ulcer of other part of left foot with fat layer exposed: Report of Operation Date of Procedure: 09/28/21 Pre-Operative Diagnosis: PAD with left foot gangrene Post-Operative Diagnosis: The same Surgery/Procedure Performed:: 1. Ultrasound-guided access retrograde right common femoral artery. 2. Left lower extremity angiogram catheter placed into the third order posterior tibial artery on the left leg. 3. Balloon angioplasty the left popliteal with a 5 mm drug-coated balloon and stent the mid to distal popliteal with a 6 x 60 prot?g?. 4. Balloon angioplasty tibial peroneal trunk with a 4 mm balloon. 5. Balloon angioplasty the peroneal and the proximal anterior tibial artery with a 3 mm balloon. 5. Closure with Mynx Description of Surgical Findings:: Surgeon: Perry Maciel Type of Anesthesia: IV Sedation Description of Procedure: Brought to the [employer]ing [employer] Operator. Underwent appropriate timeout consent. Underwent sedation. Was prepped and draped in a sterile fashion. We did ultrasound-guided access retrograde in the right common femoral artery. Put a Glidewire up and then a 5 [place] sheath. Get 5000 units of heparin. We got up and over the bifurcation and did an angiogram from the left iliac artery. This showed the common femoral artery, the profunda and the femoral were widely patent. We then imaged further down in the proximal popliteal to the mid segment was patent. The mid popliteal at the knee joint through the distal was occluded. Large collateral filling the anterior tibial which is the main runoff into the ankle. Also collateral filling the tibial peroneal trunk and peroneal artery. The left posterior tibial artery appeared to be occluded. We then brought in a long 6 [place] sheath. Using a quick cross and Glidewire we got through the occlusion into the peroneal artery. We then ballooned through the popliteal artery with a 5 mm drug-coated balloon for over 3 minutes. There was some improved flow through this. We then balloon through the tibial peroneal trunk with a 4 mm balloon for over 2 minutes. We stented that popliteal from the knee joint just to the distal segment with a 6 x 60 prot?g?. We post ballooned with a 5 mm balloon. This was much improved with great flow through this area. We then ballooned into the anterior tibial artery with a 3 mm balloon for over 3 minutes. We then used the same balloon and down through the tibial peroneal trunk into the peroneal artery for over 2 minutes. Completion showed much better flow through the TP trunk and peroneal but a little bit decreased into the anterior tibial artery. We replaced the balloon and inflated into the anterior tibial artery for another 2 minutes. Completion was much improved and brisk flow through here. We then removed out the sheath put a shorter sheath deployed a minx with good hemostasis. Patient was brought to recovery stable condition. Sedation: This 60-year-old gentleman underwent moderate sedation. He was monitored EKG blood pressure and pulse ox for over the 30 minutes of the procedure. See the EMR for the complete record. Nurse: Zane
--- NOTE | 2021-09-28 10:05 | WOUNDNOTE ---
Pt is currently off unit for angiogram.
[2021-09-28] MEDS: Insulin Lispro 100 UNIT/ML INSULN.PEN SC ×2 (10:43→22:10)
[2021-09-28] MEDS: Metoprolol(XL)Succ 25 MG Tablet PO (10:45)
[2021-09-28] MEDS: Gabapentin 800 MG Tablet PO ×3 (10:45→22:10)
[2021-09-28 11:11] LABS: Bedside Glucose 154 mg/dL (74-106)
--- NOTE | 2021-09-28 14:09 | PCM.PN.HOSP ---
Documented by User: Claudia Hammer NP, GROUNDS FOREMAN-C 09/28/21 14:55 Subjective Subjective Patient seen and examined. Underwent left popliteal angioplasty with stent placement this morning. He denies fever, chills. Denies pain. Patient irritable, stating he has not had a good day. Denies specific symptoms or complaints. Objective Data Objective Data Vital Signs: Vital Signs Temp Pulse Resp BP Pulse Ox O2 Del Method 98 F 88 16 144/94 H 99 Room Air 09/28/21 13:45 09/28/21 13:45 09/28/21 13:45 09/28/21 13:45 09/28/21 13:45 09/28/21 14:05 Oxygen Delivery Method Room Air Weight: 164 lb 10.965 oz Body Mass Index (BMI) 22.9 Intake & Output: Intake and Output for Last 24 Hours 09/26/21 09/27/21 09/28/21 23:59 23:59 23:59 Intake Total 1100 / 1100 100 / 100 Balance 1100 / 1100 100 / 100 Lab / Micro Data Result Diagrams: 09/28/21 04:25 09/28/21 04:25 Labs: Laboratory Results - last 24 hr 09/27/21 16:19: POC Glucose 280 H 09/27/21 21:54: POC Glucose 292 H 09/28/21 04:25: WBC 7.8, RBC 3.57 L, Hgb 9.6 L, Hct 31.3 L, MCV 87.7, MCH 26.9 L, MCHC 30.7 L, RDW Std Deviation 44.7 H, RDW Coeff of Imtiaz 13.9, Plt Count 370, MPV 9.0, Immature Gran % (Auto) 0.300, Neut % (Auto) 55.7, Lymph % (Auto) 33.1, Mingo % (Auto) 5.1, Eos % (Auto) 5.3 H, Baso % (Auto) 0.5, Absolute Neuts (auto) 4.3, Absolute Lymphs (auto) 2.58, Nucleated RBC % 0 09/28/21 04:25: PT 13.7, INR 1.1 09/28/21 04:25: Sodium 135 L, Potassium 4.0, Chloride 103, Carbon Dioxide 29.0, Anion Gap 3 L, BUN 24 H, Creatinine 0.95, Estim Creat Clear Calc 89.55, Est GFR (MDRD) Af Amer 105, Est GFR (MDRD) Non-Af 87, BUN/Creatinine Ratio 25.3 H, Glucose 136 H, Calcium 9.0, Total Bilirubin 0.30, AST 12 L, ALT 14 L, Alkaline Phosphatase 85, Total Protein 7.1, Albumin 2.6 L, Globulin 4.5 H, Albumin/Globulin Ratio 0.6 L 09/28/21 04:25: Hemoglobin A1c 8.1 H 09/28/21 05:55: POC Glucose 153 H 09/28/21 10:38: POC Glucose 154 H Micro: Microbiology 09/27/21 12:00 Wound - Left Foot Gram Stain - Final 09/27/21 12:00 Wound - Left Foot Wound 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 Physical Exam Const alert, oriented x3 and no apparent distress Orientation / Consciousness: awake, oriented to person, oriented to place and oriented to time HEENT normocephalic and moist oral mucous membranes Eyes PERRL, EOMs intact bilaterally and conjunctivae normal Neck no lymphadenopathy Resp normal respiratory effort and clear to auscultation bilaterally Cardio regular rate, regular rhythm and no murmurs Peripheral Pulses: pulses 2+ throughout GI normal to inspection, nondistended, normoactive bowel sounds, non-tender and non-distended Extremity normal to inspection Skin no rashes or lesions noted Skin Narrative: Left foot diabetic wound, dressing intact. Lesions: no lesions Rashes: no rashes Trauma: no lacerations or abrasions Neuro CN's II-XII intact bilaterally, no focal motor deficits, no sensory deficits noted and deep tendon reflexes 2+ bilaterally Psych mental status grossly normal and affect normal Assessment & Plan Assessment/Plan (1) Diabetic infection of left foot: PLAN: Plan 1. Left foot neuropathic wound infection-podiatry following. Underwent vascular intervention due to occluded popliteal artery on left. Plan for left fourth digit amputation on Saturday per podiatry. ID consult. IV Zosyn pending repeat cultures. 2. Peripheral arterial disease-vascular surgery following. Underwent left lower extremity angiogram with balloon angioplasty to left popliteal with stent placed 09/28/2021. 3. Type 2 diabetes [id number] with sliding scale insulin. Continue home regimen. Hemoglobin A1c 8.1%. 4. CAD with history of CABG August 2021-continue medical management. 5. Hyperlipidemia-continue statin. 6. Chronic normocytic anemia-appears at baseline. DVT prophylaxis- SCDs This patient was seen by Claudia Hammer, CARIE-C under the supervision of Dr. Santana. Time spent examining patient, reviewing data and subsequent management of care: 14 minutes Documented by User: Dr. Chacho Santana, 09/28/21 16:08 Objective Data Lab / Micro Data Result Diagrams: 09/28/21 04:25 09/28/21 04:25 Assessment & Plan Assessment/Plan (1) Diabetic infection of left foot: Charges/Coding Addendum Addendum: Patient was seen and examined independently of Claudia Hammer, he underwent a balloon angioplasty of the left popliteal artery as well as the tibial peroneal trunk and peroneal and proximal anterior tibial artery today by vascular surgery. Patient is scheduled to have left foot surgery done tomorrow, patient states he is to have his fourth toe removed tomorrow and his wounds cleaned. On examination he appeared in good health and spirits. Vital signs as documented. Skin warm and dry and without overt rashes. Neck without JVD, neck was supple, trachea midline, thyroid was normal. Lungs clear bilaterally, normal air movement was noted. Heart exam notable for regular rhythm, normal sounds and absence of murmurs, rubs or gallops. Abdomen unremarkable and without evidence of organomegaly, masses, or abdominal aortic enlargement. Bowel sounds are present, abdomen is not distended. Extremities nonedematous, no cyanosis was noted, no clubbing was noted. Neuro: Cranial nerves II through XII are grossly intact, no focal motor deficits were noted, sensation to light touch and pinprick intact, motor exam 5/5 throughout. Psych: Patient is alert and oriented x3, he does not appear anxious or depressed, he does not appear agitated. On examination he appeared in good health and spirits. Vital signs as documented. Skin warm and dry and without overt rashes, patient's left foot was wrapped with surgical dressing and this was not removed for inspection.. Neck without JVD, neck was supple, trachea midline, thyroid was normal. Lungs clear bilaterally, normal air movement was noted. Heart exam notable for regular rhythm, normal sounds and absence of murmurs, rubs or gallops. Abdomen unremarkable and without evidence of organomegaly, masses, or abdominal aortic enlargement.? Bowel sounds are present, abdomen is not distended.? Extremities nonedematous, no cyanosis was noted, no clubbing was noted.? Neuro: Cranial nerves II through XII are grossly intact, no focal motor deficits were noted, there is decreased sensation to light touch over the feet bilaterally, motor exam 5/5 throughout.? Psych: Patient is alert and oriented x3, he does not appear anxious or depressed, he does not appear agitated. #1 left foot neuropathic wound infection-continue present antibiotic coverage, patient will have surgical intervention tomorrow in the left #2 peripheral vascular disease-postop day 0 angioplasty left leg #3 type 2 diabetes-under poor control at this time, patient's A1c was 8.1, blood sugars will be monitored, sliding scale insulin will be given as indicated #4 coronary artery disease-recent coronary artery bypass grafting x4 in August 2021 #5 hyperlipidemia-patient is on a statin I have reviewed Claudia Hammer's progress note including her medical assessment and plan of care and with the above additions endorse it. Total clinical time spent by myself addressing the patient's medical issues, reviewing all the data, and collaborating with patient's care team: 25 minutes Visit Charges Inpatient E&M: 40705 Subs Hosp L3
--- NOTE | 2021-09-28 14:20 | CASEMGMT ---
JOE CASTILLO Assessment: Face to Face with pt for initial transition planning/care coordination assessment. JOE CASTILLO introduced self and role at [facility], pt voices understanding and consents to assessment. Pt is A/O x4 and answers all questions appropriately at this time. Pt lying in bed in no distress. Care providers, pharmacy, and demographics verified/updated. Admitting Dx: diabetic foot infection PCP:Kieran Specialists:Janene, pod; Winston, cardio; Clay, cardiac surgeon- pt just had quadruple bypass 28 days ago. Preferred Pharmacy: [facility] Insurance: [employer] Prescription Benefit: yes LW/HPOA: Pt denies having a LW/DPOA and denies need for info regarding AD. LNOK: Renetta Parr, Living Arrangements: Pt lives with in a split level house. He states he has 8 steps to get to where he stays in the house with a rail. Pt reports he is I in ADL's and denies concerns at home. Transportation: Pt transports pt to medical appts as he is unable to drive for 2 more weeks s/p open heart. DME/HHC/SNF: Pt has a cane, walker, BGM with sufficient supplies as well as a w/c that he uses when outside the house. Pt denies hx of HHC or SNF stays. Pt states no concerns with going home at time of dc. Pt states his completes daily dressing changes on his foot and is pleased with this result. He states he had his picc pulled approx a week and a half ago and he completed his 6 weeks of IV antibiotics. Pt states he would like to have IV's as an outpt should he need them again as prior. He does not want HHC nor to go to SNF. His will continue to perform dressing changes. Pt to go to surgery tomorrow for amputation of toe on left. Pt states no further concerns/needs. CM to follow. Advised pt to ask CM if any further question/concerns/needs arise, voices understanding. Pt Goal: Home Plan: Home with rest of care TBD.
[2021-09-28 17:00] LABS: Bedside Glucose 134 mg/dL (74-106)
[2021-09-28] MEDS: Atorvastatin Calcium 80 MG Tablet PO (22:10)
[2021-09-28] MEDS: traZODone 100 MG Tablet PO (22:10)
[2021-09-28] MEDS: Empagliflozin 25 MG Tablet PO (22:10)
[2021-09-28 22:45] LABS: Bedside Glucose 337 mg/dL (74-106)
[2021-09-29] VITALS (11 sets, daily range): BP systolic 85–164; BP diastolic 62–95; PULSE 68–99; RESP 16; TEMP 36.6–36.8; O2SAT 97–100
[2021-09-29 05:30] LABS: Partial Thromboplast Time 35.4 Seconds (24.1-36.2)
[2021-09-29 05:39] LABS: ALB/GLOB Ratio 0.6 RATIO (0.9-2.4); AST(SGOT) 13 U/L (15-37); Alanine Aminotransfer ALT/SGPT 15 U/L (16-61); Albumin, Serum 2.6 g/dL (3.2-5.0); Alkaline Phosphatase 87 U/L (45-117); Anion Gap 7 (5-15); BUN 25 mg/dL (7-18); BUN/Creat Ratio 28.1 RATIO (10-20); Calcium,Total 9.2 mg/dL (8.5-10.1); Chloride 104 mmol/L (98-107); Creatinine, Serum 0.89 mg/dL (0.70-1.30); EST Glomerular Filtration Rate 93 mL/min (>60); Est Glom Filt Rate - Afr Amer 113 mL/min (>60); Estimated Creatinine Clearance 95.59 ml/min; Globulin 4.7 g/dL (2.2-4.2); Glucose 179 mg/dL (74-106); Potassium 4.1 mmol/L (3.5-5.1); Protein, Total 7.3 g/dL (6.4-8.2); Sodium Level 135 mmol/L (136-145)
[2021-09-29 07:17] LABS: Bedside Glucose 171 mg/dL (74-106)
[2021-09-29 08:26] LABS: Absolute Lymphocyte Count 1.73 X10^3/uL (0.83-4.51); Absolute Neutrophil Count 5.1 X10^3/uL (2.0-7.7); Basophil# 0.05 X10^3/uL; Basophil% 0.6 % (0-1); Eosinophil# 0.37 X10^3/uL; Eosinophils% 4.8 % (0-5); Hematocrit 33.1 % (40-54); Lymphocyte # 1.73 X10^3/ul (0.83-4.51); Lymphocyte % 22.3 % (19-41); Mean Corp Hgb Conc 30.2 g/dL (32-36); Mean Corpuscular Hgb 26.5 pg (27.0-32.0); Mean Corpuscular Volume 87.6 fL (80-94); Mean Platelet Vol. 9.1 fl (6.2-12.0); Monocyte# 0.46 X10^3/uL; Monocyte% 5.9 % (0-10); NRBC Flagged by Analyzer 0 % (0-5); Neutrophil # 5.12 X10^3/uL (2.7-7.7); Neutrophil % 66.1 % (47-70); Platelet Count 391 K/mm3 (150-450); RBC Distribution Width CV 13.9 % (11.6-14.6); Red Blood Count 3.78 M/mm3 (4.6-6.2); White Blood Count 7.8 K/mm3 (4.4-11.0)
--- NOTE | 2021-09-29 09:24 | PCM.PN.HOSP ---
Documented by User: Claudia Hammer NP, PRINT FINISHING WORKER-C 09/29/21 09:30 Subjective Subjective Patient seen and examined. Patient irritable. Would like to be left alone. Denies specific symptoms or complaints. Objective Data Objective Data Vital Signs: Vital Signs Temp Pulse Resp BP Pulse Ox O2 Del Method 97.9 F 93 16 110/74 98 Room Air 09/28/21 15:35 09/28/21 15:35 09/28/21 15:35 09/28/21 15:35 09/28/21 15:35 09/29/21 08:32 Oxygen Delivery Method Room Air Weight: 164 lb 10.965 oz Body Mass Index (BMI) 22.9 Intake & Output: Intake and Output for Last 24 Hours 09/27/21 09/28/21 09/29/21 23:59 23:59 23:59 Intake Total 1100 / 1100 150 / 150 50 / 50 Balance 1100 / 1100 150 / 150 50 / 50 Lab / Micro Data Result Diagrams: 09/29/21 08:16 09/29/21 05:10 Labs: Laboratory Results - last 24 hr 09/28/21 10:38: POC Glucose 154 H 09/28/21 16:39: POC Glucose 134 H 09/28/21 22:08: POC Glucose 337 H 09/29/21 05:10: Sodium 135 L, Potassium 4.1, Chloride 104, Carbon Dioxide 24.0, Anion Gap 7, BUN 25 H, Creatinine 0.89, Estim Creat Clear Calc 95.59, Est GFR (MDRD) Af Amer 113, Est GFR (MDRD) Non-Af 93, BUN/Creatinine Ratio 28.1 H, Glucose 179 H, Calcium 9.2, Total Bilirubin 0.30, AST 13 L, ALT 15 L, Alkaline Phosphatase 87, Total Protein 7.3, Albumin 2.6 L, Globulin 4.7 H, Albumin/Globulin Ratio 0.6 L 09/29/21 05:10: APTT 35.4 09/29/21 06:52: POC Glucose 171 H 09/29/21 08:16: WBC 7.8, RBC 3.78 L, Hgb 10.0 L, Hct 33.1 L, MCV 87.6, MCH 26.5 L, MCHC 30.2 L, RDW Std Deviation 44.0 H, RDW Coeff of Imtiaz 13.9, Plt Count 391, MPV 9.1, Immature Gran % (Auto) 0.300, Neut % (Auto) 66.1, Lymph % (Auto) 22.3, Calvert % (Auto) 5.9, Eos % (Auto) 4.8, Baso % (Auto) 0.6, Absolute Neuts (auto) 5.1, Absolute Lymphs (auto) 1.73, Nucleated RBC % 0 Micro: Microbiology 09/27/21 09:25 Blood Culture (Wb) - Right Forearm Blood Culture - Preliminary No growth in 48 hours. 09/27/21 08:25 Blood Culture (Wb) - Anticubital Left Blood Culture - Preliminary No growth in 48 hours. 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 Physical Exam Const alert, oriented x3 and no apparent distress Orientation / Consciousness: awake, oriented to person, oriented to place and oriented to time HEENT normocephalic and moist oral mucous membranes Eyes PERRL, EOMs intact bilaterally and conjunctivae normal Neck no lymphadenopathy Resp clear to auscultation bilaterally Auscultation: diminished lung sounds Cardio regular rate, regular rhythm and no murmurs Peripheral Pulses: pulses 2+ throughout GI normal to inspection, nondistended, normoactive bowel sounds, non-tender and non-distended Extremity normal to inspection Skin no rashes or lesions noted Skin Narrative: Left foot diabetic wound, dressing intact. Lesions: no lesions Rashes: no rashes Trauma: no lacerations or abrasions Neuro CN's II-XII intact bilaterally, no focal motor deficits, no sensory deficits noted and deep tendon reflexes 2+ bilaterally Psych Attitude: agitated Mood & Affect: flat affect Assessment & Plan Assessment/Plan (1) Diabetic infection of left foot: PLAN: Plan 1.? Left foot neuropathic wound infection-podiatry following.? Underwent vascular intervention due to occluded popliteal artery on left.? Plan for left fourth digit amputation this afternoon per podiatry.? ID consult.? IV Zosyn pending repeat cultures. 2.? Peripheral arterial disease-vascular surgery following.? Underwent left lower extremity angiogram with balloon angioplasty to left popliteal with stent placed 09/28/2021. 3.? Type 2 diabetes [id number]-[id number] with sliding scale insulin.? Continue home regimen.? Hemoglobin A1c 8.1%. 4.? CAD with history of CABG August 2021-continue medical management. 5. Hyperlipidemia-continue statin. 6.? Chronic normocytic anemia-appears at baseline. DVT prophylaxis- SCDs This patient was seen by Claudia Hammer NP-C under the supervision of Dr. Santana. Time spent examining patient, reviewing data and subsequent management of care: 13 minutes Documented by User: Dr. Chacho Santana, 09/29/21 12:31 Objective Data Lab / Micro Data Result Diagrams: 09/29/21 08:16 09/29/21 05:10 Assessment & Plan Assessment/Plan (1) Diabetic infection of left foot: Charges/Coding Addendum Addendum: Patient was seen and examined today independently of Claudia Hammer, he became belligerent when he was talking to me this morning and accuse me of telling him that he was going to have part of his foot cut off, I had a discussion with him yesterday based on Dr. Watters's conversation of the day before where Dr. Watters stated that he might have to consider doing a forefoot amputation, I had relayed this conversation to the patient yesterday and he seemed understand that yesterday but today he confabulated the conversation I had with him and stated that I told him that he was going to have his toe cut off and more extensive surgery. Later on the day, patient requested a different hospitalist see him ongoing from today. Dr. Kristan Barnett will take over his case tomorrow for the hospitalist service. On examination he appeared argumentative and rude. Vital signs as documented. Skin warm and dry and without overt rashes. Neck without JVD, neck was supple, trachea midline, thyroid was normal. Lungs clear bilaterally, normal air movement was noted. Heart exam notable for regular rhythm, normal sounds and absence of murmurs, rubs or gallops. Abdomen unremarkable and without evidence of organomegaly, masses, or abdominal aortic enlargement. Bowel sounds are present, abdomen is not distended. Extremities nonedematous, no cyanosis was noted, no clubbing was noted. Neuro: Cranial nerves II through XII are grossly intact, no focal motor deficits were noted, sensation to light touch and pinprick intact, motor exam 5/5 throughout. Psych: Patient is alert and oriented x3, he appeared argumentative and agitated. #1 left foot neuropathic wound infection-continue present antibiotic coverage, patient will have surgical intervention today, Dr. Kristan Barnett will be seeing him for the hospitalist service starting tomorrow #2 peripheral vascular disease-postop day 1 angioplasty left leg #3 type 2 diabetes-under poor control at this time, patient's A1c was 8.1, blood sugars will be monitored, sliding scale insulin will be given as indicated #4 coronary artery disease-recent coronary artery bypass grafting x4 in August 2021 #5 hyperlipidemia-patient is on a statin I have reviewed Claudia Harman's progress note including her medical assessment and plan of care with the above additions endorse it. Total clinical time spent by myself addressing the patient's medical issues, reviewing the data, and collaborating with patient's care team: 22 minutes Visit Charges Inpatient E&M: 96625 Subs Hosp L3
[2021-09-29] MEDS: Metoprolol(XL)Succ 25 MG Tablet PO (11:34)
[2021-09-29 13:01] LABS: Bedside Glucose 165 mg/dL (74-106)
--- NOTE | 2021-09-29 13:45 | BON_PTH ---
PATIENT: NAYELI JOSE LOC: MS3 U#:[id number] AGE/SX: 60/M ROOM: SD312 RE09/27/[address]: Dr. Connie Rai MD : 1960 BED: 1 DIS: 10/02/2021 SPEC #: [id number] RECD: 09/29/21 18:54 STATUS: SEVERIANO REQ #: [id number] KARRI: 09/29/21 13:[address]: Pasquale Watters DEPT: SURGICAL PATHOLOGY RECD BY: Elinor Lott ENTERED: 10/02/21 07:59 SP TYPE: Bone OTHR DR: MD Dr. Perry Suero MD Dr. Daniel Bullard, DPM Dr. Lisa Barnett, DO Dr. Javy Alcaraz, DO Dr. Chacho Santana, DO Dr. 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 Bone with acute osteomyelitis. AM:iraida 10/05/2021 MICROSCOPIC DESCRIPTION Slides are reviewed. GROSS DESCRIPTION Received in fixative is one container labeled with the patient's name and designated fourth left metatarsal. The specimen consists of multiple irregular fragments of short bone ranging in size from 1 to 1.5 cm. It Teacher sections are submitted in one cassette after decalcification. / AM:iraida 10/02/2021 TC:2 CPT: 23256, 73666
--- NOTE | 2021-09-29 15:36 | OP.PCM_ITS ---
Problems Associated Problem List Diagnoses (1) Diabetic foot infection: (2) Cellulitis of toe of left foot: (3) Peripheral vascular disease, unspecified: (4) Non-pressure chronic ulcer of other part of left foot with fat layer exposed: (5) Osteomyelitis of foot, acute: Operative Report Date of Procedure: 09/29/21 Surgeon: Pasquale Watters D.P.M. Photographic Restorer Milo could be noted DDainPKhushi PGY 1 Preoperative diagnosis left chronic foot wound in setting of peripheral arterial disease with chronic osteomyelitis left foot postoperative diagnosis same Procedure: 1 left partial fourth ray resection 2 incision and drainage of abscess down to the level of the first metatarsal phalangeal joint capsule 3 incision and drainage of abscess down to the level of the plantar fascia Anesthesia monitored anesthesia care Hemostasis no tourniquet used due to peripheral arterial disease Estimated blood loss minimal Materials 1 vessel loop closure performed adhered with cande to dorsal foot wound at site of partial third and fourth ray resection Injectables 10 cc quarter percent Marcaine plain local infiltration technique Indications: Patient 60-year-old male type 2 diabetes history of coronary artery disease underwent recent coronary artery bypass 1 month prior has had multiple rev ascularization attempts on the left lower extremity by Dr. Maciel the most recent being a popliteal artery stent performed on 09/28/2021. Patient has had chronic nonhealing wounds after suffering an acute infection to the left third ray and plantar fascia. This required urgent incision and drainage with amputation of the third ray. Due to poor vascular disease patient's wounds did not heal and the fourth toe became necrotic and nonviable. Aggressive treatment of this delayed due to complications associated with coronary artery disease requiring coronary artery bypass. This was performed by a cardiovascular surgeon at [facility] last month. Due to poor healing of his wounds and concern for chronic infection to his left foot patient was admitted to the hospital and plan was for amputation of the fourth ray as well as debridement of the plantar midfoot wound and new onset wound along the dorsal medial first metatarsal phalangeal joint. Procedure in detail: Patient was brought back to the operating placed comfortably in supine position on the operating room table and the left lower extremity was bumped to prevent any external rotation to allow for adequate visualization during operative case. All osseous prominences were offloaded prevent any compression neuropraxia's. A well-padded left ankle tourniquet applied this was not used throughout the case. Local infiltration block was performed to the left dorsal foot wound plantar midfoot wound in the medial left first metatarsal head using 10 cc of quarter percent Marcaine plain. Left lower extremity was then scrubbed prepped and draped using typical aseptic manner. Once cleared by anesthesia the left fourth digit was amputated at the level of the metatarsal phalangeal joint and the head and neck of the fourth metatarsal were resected using osteotomes and mallet. This bone was split and sent for culture and path with regards to the left fourth digit. The left fourth metatarsal head and neck were sent to pathology as a clearance fragment. Swab cultures were taken of the plantar midfoot wound and dorsal lateral forefoot wound. Tissue cultures taken from these wounds as well as sent to micro pathology. All nonviable tissue was debrided down to level of bone at the level of the fourth ray resection site and third ray resection site. Moderate amount of bleeding noted to this area no deep abscess noted. Plantar midfoot wound was debrided down to the level of the flexor tendon. The flexor tendon extending to the second digit was excised due to known viability. Moderate amount of bleeding noted to this area no residual infection noted. Predebridement the wound was approximately 2.5 x 5.5 x 1.5 cm. Postdebridement this plantar midfoot wound was 3.0 x 6.5 x 2.0 cm and extends down to level of flexor tendon sheaths. Next the dry stable eschar to the dorsal medial first MPJ was debrided down to level of first metatarsal phalangeal joint capsule there is noted to be purulence underneath this eschar that she extended down to the level of the capsule. This was sent for tissue culture the left first metatarsal phalangeal joint capsule. Mild bleeding noted to this area upon debridement. Low-pressure pulse lavage flushing was performed to the 3 surgical sites the dorsal lateral third and fourth ray resection sites plantar midfoot wound and medial first metatarsal phalangeal joint. This was performed with copious amounts normal sterile saline. The left fourth and third partial ray resection sites were reapproximated using vessel loop closure to the skin dorsally using MaxForce Ve sseloops and a skin stapler. The wound was then packed with quarter inch iodoform and the plantar midfoot wound was also packed with quarter inch iodoform and a Betadine wet-to-dry dressing was performed to the medial first metatarsophalangeal joint. Followed by 4 x 4's ABD pads Kerlix and a Mian bandage which are left wrapped with light compression. No tourniquet was used. Patient transferred to PACU vital signs stable vascular status intact to the the remaining digits of the left foot. Patient tolerated anesthesia and procedure well apparent satisfactory condition will be transferred back to the floor for additional monitoring while in house. Moderate amount of bleeding noted upon debridement suggestive of potential wound healing There is noted be an abscess deep to the first metatarsal head eschar Patient will likely require PICC line for long-term IV antibiotics and prolonged nonweightbearing to his left lower extremity. Patient adamantly defers foot amputation at this time however if this fails that will be his next step will either be a definitive foot amputation versus below the knee amputation. Will continue to follow the patient closely while in the hospital.
--- NOTE | 2021-09-29 15:56 | RAD_ITS ---
EXAM: XR LEFT TOES, 2 OR MORE VIEWS CLINICAL INDICATION: PAIN TECHNIQUE: Frontal, lateral and oblique views of the toes of the left foot. This report was created using [employer] report generation technology. COMPARISON: None. FINDINGS: BONES/JOINTS: Final image demonstrates amputation of the third and fourth rays at the level of the distal third and fourth metatarsals. OTHER FINDINGS: A single fluoroscopically guided spot image was obtained. Total fluoroscopic exposure time was 8 seconds. Electronically Signed: Javy Hull MD at 16:58 EDT , RAD/Toe(s) Min 2 Views IMPRESSION: undefined
[2021-09-29 16:00] LABS: Bedside Glucose 152 mg/dL (74-106)
[2021-09-29] MEDS: Lactated Ringers 1,000 ML 15 ML IV (16:33)
[2021-09-29 16:51] LABS: Bedside Glucose 129 mg/dL (74-106)
[2021-09-29] MEDS: Gabapentin 800 MG Tablet PO (21:17)
[2021-09-29] MEDS: Empagliflozin 25 MG Tablet PO (21:17)
[2021-09-29] MEDS: Atorvastatin Calcium 80 MG Tablet PO (21:17)
[2021-09-29] MEDS: traZODone 100 MG Tablet PO (21:17)
[2021-09-29 21:45] LABS: Bedside Glucose 152 mg/dL (74-106)
[2021-09-30 05:00] VITALS: BP 152/76; PULSE 106; RESP 18; TEMP 36.7; O2SAT 99
[2021-09-30 07:00] LABS: Absolute Lymphocyte Count 0.83 X10^3/uL (0.83-4.51); Absolute Neutrophil Count 4.4 X10^3/uL (2.0-7.7); Basophil# 0.03 X10^3/uL; Basophil% 0.5 % (0-1); Eosinophil# 0.15 X10^3/uL; Eosinophils% 2.6 % (0-5); Hematocrit 30.6 % (40-54); Hemoglobin 9.3 g/dL (13.0-16.5); Lymphocyte # 0.83 X10^3/ul (0.83-4.51); Lymphocyte % 14.4 % (19-41); Mean Corp Hgb Conc 30.4 g/dL (32-36); Mean Corpuscular Hgb 26.6 pg (27.0-32.0); Mean Corpuscular Volume 87.4 fL (80-94); Mean Platelet Vol. 9.4 fl (6.2-12.0); Monocyte# 0.34 X10^3/uL; Monocyte% 5.9 % (0-10); NRBC Flagged by Analyzer 0 % (0-5); Neutrophil # 4.41 X10^3/uL (2.7-7.7); Neutrophil % 76.3 % (47-70); Platelet Count 361 K/mm3 (150-450); RBC Distribution Width CV 14.1 % (11.6-14.6); White Blood Count 5.8 K/mm3 (4.4-11.0)
[2021-09-30 07:05] LABS: Bedside Glucose 121 mg/dL (74-106)
[2021-09-30 07:31] LABS: Anion Gap 10 (5-15); BUN 19 mg/dL (7-18); BUN/Creat Ratio 22.8 RATIO (10-20); Calcium,Total 8.9 mg/dL (8.5-10.1); Chloride 101 mmol/L (98-107); Creatinine, Serum 0.83 mg/dL (0.70-1.30); EST Glomerular Filtration Rate 101 mL/min (>60); Est Glom Filt Rate - Afr Amer 122 mL/min (>60); Glucose 121 mg/dL (74-106); Potassium 4.1 mmol/L (3.5-5.1); Sodium Level 135 mmol/L (136-145)
[2021-09-30] MEDS: Gabapentin 800 MG Tablet PO ×3 (07:43→21:31)
[2021-09-30 07:44] VITALS: PULSE 98
[2021-09-30] MEDS: Metoprolol(XL)Succ 25 MG Tablet PO (07:44)
--- NOTE | 2021-09-30 07:55 | PN_ITS ---
Subjective Subjective Patient seen bedside at 1 day postop. Denies any fever chills nausea vomiting. Pain well controlled at this time. Patient urinating passing gas. Patient agitated due to condition of left foot and inability to sleep overnight. Objective Data Objective Data Vital Signs: Vital Signs Temp Pulse Resp BP Pulse Ox O2 Del Method 98.0 F 98 18 152/76 H 99 Room Air 09/30/21 05:00 09/30/21 07:44 09/30/21 05:00 09/30/21 05:00 09/30/21 05:00 09/30/21 05:00 Oxygen Delivery Method Room Air Weight: 74.7 kg Body Mass Index (BMI) 22.9 Intake & Output: Intake and Output for Last 24 Hours 09/28/21 09/29/21 09/30/21 23:59 23:59 23:59 Intake Total 150 / 150 318.5 / 318.5 50 / 50 Balance 150 / 150 318.5 / 318.5 50 / 50 Lab / Micro Data Result Diagrams: 09/30/21 06:25 09/30/21 06:25 Labs: Laboratory Results - last 24 hr 09/29/21 08:16: WBC 7.8, RBC 3.78 L, Hgb 10.0 L, Hct 33.1 L, MCV 87.6, MCH 26.5 L, MCHC 30.2 L, RDW Std Deviation 44.0 H, RDW Coeff of Imtiaz 13.9, Plt Count 391, MPV 9.1, Immature Gran % (Auto) 0.300, Neut % (Auto) 66.1, Lymph % (Auto) 22.3, [place] % (Auto) 5.9, Eos % (Auto) 4.8, Baso % (Auto) 0.6, Absolute Neuts (auto) 5.1, Absolute Lymphs (auto) 1.73, Nucleated RBC % 0 09/29/21 11:31: POC Glucose 165 H 09/29/21 15:41: POC Glucose 152 H 09/29/21 16:32: POC Glucose 129 H 09/29/21 21:17: POC Glucose 152 H 09/30/21 06:25: WBC 5.8, RBC 3.50 L, Hgb 9.3 L, Hct 30.6 L, MCV 87.4, MCH 26.6 L , MCHC 30.4 L, RDW Std Deviation 45.0 H, RDW Coeff of Imtiaz 14.1, Plt Count 361, MPV 9.4, Immature Gran % (Auto) 0.300, Neut % (Auto) 76.3 H, Lymph % (Auto) 14.4 L, [place] % (Auto) 5.9, Eos % (Auto) 2.6, Baso % (Auto) 0.5, Absolute Neuts (auto) 4.4, Absolute Lymphs (auto) 0.83, Nucleated RBC % 0 09/30/21 06:25: Sodium 135 L, Potassium 4.1, Chloride 101, Carbon Dioxide 24.0, Anion Gap 10, BUN 19 H, Creatinine 0.83, Estim Creat Clear Calc 102.50, Est GFR (MDRD) Af Amer 122, Est GFR (MDRD) Non-Af 101, BUN/Creatinine Ratio 22.8 H, Glucose 121 H, Calcium 8.9 09/30/21 06:44: POC Glucose 121 H Micro: Microbiology 09/27/21 12:00 Wound - Left Foot Gram Stain - Final 09/27/21 12:00 Wound - Left Foot Wound Culture - Final Escherichia coli Gram positive usman 09/27/21 09:25 Blood Culture (Wb) - Right Forearm Blood Culture - Preliminary No growth in 48 hours. 09/27/21 08:25 Blood Culture (Wb) - Anticubital Left Blood Culture - Preliminary No growth in 48 hours. Radiography Diagnostic Testing: Radiology Impression Toe X-Ray 09/29/21 15:56 IMPRESSION: undefined Physical Exam Narrative Patient alert oriented person place time. Vascular: Diminished dorsalis pedis posterior tibial pulses left lower extremity. Atrophic skin changes. Necrotic left fourth digit. Nonhealing left foot wounds. Neurologic: Light touch protective sensation absent to bilateral feet. Dermatologic: Full-thickness wound to dorsal lateral left forefoot plantar midfoot wound these wounds are stable at this time. First metatarsal head wound extends down to the level of first metatarsophalangeal joint capsule. Mild erythema edema to the periwound area. No other residual signs of infection at this time. Musculoskeletal: Absent left third digit. Absent left fourth digit. Muscular strength full to bilateral lower extremity compartments. No pain with calf squeeze bilaterally. Assessment & Plan Assessment/Plan (1) Diabetic foot infection: PLAN: Patient examined evaluated Wound dressing was changed operative sites were examined left partial third and fourth ray resection sites appear to be clean and devoid of any signs of infection along with the plantar midfoot wound. There is some residual erythema edema to the medial aspect of the first metatarsal phalangeal joint where the eschar was debrided off the site and underlying purulence was noted. Intraoperative cultures pending at this time. Patient receiving IV Zosyn. Due to deep infection at the level of first metatarsophalangeal joint I recommend ID consult with possible PICC line per their discretion. Detailed conversation was had with the patient regarding the status of his left foot. Recommended definitive foot amputation patient, patient declines. It was agreed upon with the patient that if there are any declines in the patient's current status with regards to wound healing or recurrent infection and we have no choice but to move forward with a definitive amputation at that time which may result in more proximal amputation. Will continue to follow patient closely site was redressed today with Betadine wet-to-dry DSD and a lightly wrapped Mian due to peripheral arterial status. Upon DC patient should maintain a nonweightbearing status to his left lower extremity, patient can bear weight to his heel for transfer purposes only but not for prolonged ambulation or standing. Will continue to follow patient daily. (2) Cellulitis of toe of left foot: (3) Peripheral vascular disease, unspecified: (4) Non-pressure chronic ulcer of other part of left foot with fat layer exposed: (5) Osteomyelitis of foot, acute:
--- NOTE | 2021-09-30 08:20 | NURSING ---
dr stratton in room and made aware of pt refusal for post op checks overnite per pt, refusing to allow door to room to be open or staff to round pt refusing adan, ensure and diet this am-sncouraged pt to eat d/t poor nutrition leads to poor wound healing-he voices understanding BSC placed at bedside and supplies placed in chair next to bedside-pt aware we will collect stool specimen
[2021-09-30 08:24] VITALS: BP 145/86; PULSE 97; RESP 18; TEMP 37.1; O2SAT 99
[2021-09-30] MEDS: oxyCODONE 5 MG Tablet 10 MG PO ×2 (08:42→20:23)
[2021-09-30] MEDS: Clopidogrel Bisulfate 75 MG Tablet PO (10:25)
[2021-09-30] MEDS: Insulin Lispro 100 UNIT/ML INSULN.PEN SC ×3 (11:28→21:28)
[2021-09-30 12:05] LABS: Bedside Glucose 258 mg/dL (74-106)
--- NOTE | 2021-09-30 12:39 | PCM.PN.HOSP ---
Documented by User: Claudia Hammer NP, LACTATION COORDINATOR-C 09/30/21 12:44 Subjective Subjective Patient seen and examined. Reports postoperative foot pain 09/24. Remains generally disgruntled. Denies other specific symptoms or complaints. Objective Data Objective Data Vital Signs: Vital Signs Temp Pulse Resp BP Pulse Ox O2 Del Method 98.8 F 97 18 145/86 H 99 Room Air 09/30/21 08:24 09/30/21 08:24 09/30/21 08:24 09/30/21 08:24 09/30/21 08:24 09/30/21 08:24 Oxygen Delivery Method Room Air Weight: 164 lb 10.965 oz Body Mass Index (BMI) 22.9 Intake & Output: Intake and Output for Last 24 Hours 09/28/21 09/29/21 09/30/21 23:59 23:59 23:59 Intake Total 150 / 150 318.5 / 318.5 100 / 100 Balance 150 / 150 318.5 / 318.5 100 / 100 Lab / Micro Data Result Diagrams: 09/30/21 06:25 09/30/21 06:25 Labs: Laboratory Results - last 24 hr 09/29/21 11:31: POC Glucose 165 H 09/29/21 15:41: POC Glucose 152 H 09/29/21 16:32: POC Glucose 129 H 09/29/21 21:17: POC Glucose 152 H 09/30/21 06:25: WBC 5.8, RBC 3.50 L, Hgb 9.3 L, Hct 30.6 L, MCV 87.4, MCH 26.6 L, MCHC 30.4 L, RDW Std Deviation 45.0 H, RDW Coeff of Imtiaz 14.1, Plt Count 361, MPV 9.4, Immature Gran % (Auto) 0.300, Neut % (Auto) 76.3 H, Lymph % (Auto) 14.4 L, [place] % (Auto) 5.9, Eos % (Auto) 2.6, Baso % (Auto) 0.5, Absolute Neuts (auto) 4.4, Absolute Lymphs (auto) 0.83, Nucleated RBC % 0 09/30/21 06:25: Sodium 135 L, Potassium 4.1, Chloride 101, Carbon Dioxide 24.0, Anion Gap 10, BUN 19 H, Creatinine 0.83, Estim Creat Clear Calc 102.50, Est GFR (MDRD) Af Amer 122, Est GFR (MDRD) Non-Af 101, BUN/Creatinine Ratio 22.8 H, Glucose 121 H, Calcium 8.9 09/30/21 06:44: POC Glucose 121 H 09/30/21 11:27: POC Glucose 258 H Micro: Microbiology 09/29/21 Unknown Tissue - Left Foot Gram Stain - Final 09/29/21 Unknown Tissue - Left Foot Wound Culture - Preliminary Gram negative usman GNR lactose enterprise applications manager 09/29/21 Unknown Tissue - 4th Toe Gram Stain - Final 09/29/21 Unknown Tissue - 4th Toe Wound Culture - Preliminary GNR lactose enterprise applications manager Gram negative usman 09/29/21 Unknown Tissue - 4th Toe Gram Stain - Final 09/29/21 Unknown Tissue - 4th Toe Wound Culture - Preliminary Gram negative usman GNR lactose enterprise applications manager 09/29/21 Unknown Tissue - Left Foot Gram Stain - Final 09/29/21 Unknown Tissue - Left Foot Wound Culture - Preliminary Gram negative usman 09/29/21 Unknown Bone - Toe Gram Stain - Final 09/29/21 Unknown Bone - Toe Wound Culture - Preliminary Gram negative usman 09/27/21 12:00 Wound - Left Foot Gram Stain - Final 09/27/21 12:00 Wound - Left Foot Wound Culture - Final Escherichia coli Gram positive usman 09/27/21 09:25 Blood Culture (Wb) - Right Forearm Blood Culture - Preliminary No growth in 48 hours. 09/27/21 08:25 Blood Culture (Wb) - Anticubital Left Blood Culture - Preliminary No growth in 48 hours. Radiography Diagnostic Testing: Radiology Impression Toe X-Ray 09/29/21 15:56 IMPRESSION: undefined Physical Exam Const alert and oriented x3 HEENT normocephalic and moist oral mucous membranes Eyes PERRL, EOMs intact bilaterally and conjunctivae normal Neck no lymphadenopathy Resp normal respiratory effort and clear to auscultation bilaterally Cardio regular rate, regular rhythm and no murmurs Peripheral Pulses: pulses 2+ throughout GI normal to inspection, nondistended, normoactive bowel sounds, non-tender and non-distended Extremity normal to inspection Skin no rashes or lesions noted Skin Narrative: Left foot postop dressing intact. Lesions: no lesions Rashes: no rashes Trauma: no lacerations or abrasions Neuro CN's II-XII intact bilaterally, no focal motor deficits, no sensory deficits noted and deep tendon reflexes 2+ bilaterally Psych mental status grossly normal and affect normal Assessment & Plan Assessment/Plan (1) Diabetic infection of left foot: PLAN: Plan 1.? Left foot neuropathic wound infection-podiatry/ID following.? Underwent vascular intervention due to occluded popliteal artery on left.? Underwent left partial fourth ray resection with incision and drainage of abscess down to the level of first metatarsophalangeal joint 09/29/21.? IV Zosyn pending repeat cultures. Due to deep infection, podiatry would like ID consult regarding antibiotic management. 2.? Peripheral arterial disease-vascular surgery following.? Underwent left lower extremity angiogram with balloon angioplasty to left popliteal with stent placed 09/28/2021. 3.? Type 2 diabetes [id number] with sliding scale insulin.? Continue home regimen.? Hemoglobin A1c 8.1%. 4.? CAD with history of CABG August 2021-continue medical management. 5. Hyperlipidemia-continue statin. 6.? Chronic normocytic anemia-appears at baseline. DVT prophylaxis- SCDs This patient was seen by Claudia Hammer NP-C under the supervision of Dr. Barnett. Documented by User: Dr. Lisa Barnett DO 09/30/21 13:07 Subjective Subjective This patient was seen in conjunction with Claudia Hammer NP. The following represents my independent history and physical examination. Please see below for addendum the above. Patient has been refusing various aspects of his care through the night. He also refused to order breakfast. Nursing did discuss with him the importance of good nutrition with infections. He currently is complaining of some back pain, postoperative pain, and groin pain from his vascular intervention. Asked if Dr. Li would be in to see him over the weekend. It does not appear that he is consulted at this time and we will further discuss with Dr. Watters regarding his thoughts with regards to his amputation. He also complained of some diarrhea that he indicates he typically gets with antibiotics. I did discuss with him we needed to go ahead and get a stool sample and if that is negative we can start Imodium. Objective Data Lab / Micro Data Result Diagrams: 09/30/21 06:25 09/30/21 06:25 Physical Exam Const alert, oriented x3, no apparent distress, average body habitus and well nourished Constitutional Narrative: Upper middle-aged white male lying in bed, appears older than stated age, appears comfortable at this time, seems somewhat discontent HEENT head/scalp atraumatic and moist oral mucous membranes Head and Scalp: normocephalic Resp normal respiratory effort, no retractions, no use of accessory muscles and clear to auscultation bilaterally Auscultation: Negative for crackles, rales, rhonchi or wheezes Cardio regular rate, regular rhythm, S1 normal heart sound, S2 normal heart sound, no murmurs, no rub, no gallops, no clicks and no JVD GI normal to inspection, nondistended, normoactive bowel sounds, soft to palpation, non-tender, non-distended and hepatosplenomegaly Extremity Extremity Narrative: Left foot with postoperative dressing in place, cap refill is 2+, contralateral foot with 2+ pedal pulses and no edema, no cyanosis or clubbing noted Neuro oriented x3, moves all extremities and no focal motor deficits Assessment & Plan Assessment/Plan (1) Diabetic infection of left foot: PLAN: Plan Assessment: Polymicrobial left foot infection status post debridement PAD DM-2 CAD status post CABG 09/04/2021 Hyperlipidemia Diabetic neuropathy Chronic normocytic anemia Mild ischemic cardiomyopathy Chronic low back pain History of tobacco abuse Plan: -E. coli growing out of initial culture -Operative cultures show a gram-negative usman and a second gram-negative usman at left -Based on sensitivities from initial culture we will switch from Zosyn to cefepime -Patient postop day 1 from left partial fourth ray resection/I&D abscess down to the level of the first metatarsal phalangeal joint capsule/I&D of abscess down to the level of the plantar fascia -Definitive amputation recommended by podiatry but patient declined -Recommending PICC with long-term antibiotics -ID consult placed -Antibiotics altered as above -Continue to monitor cultures -Patient also underwent angioplasty of the left lower extremity by vascular surgery on 09/28/2021 and it appears he is stable with regards to this -Continue aspirin and Plavix -Hemoglobin A1c is 8.1 indicating uncontrolled diabetes however overall control appears improved from May of this past year at which time his hemoglobin A1c was 11.5 -Would recommend continued outpatient adjustment of his antidiabetic medications -Continue all cardiac medications as ordered -Check C. difficile for stool and if negative start Imodium Charges/Coding Visit Charges Inpatient E&M: 28442 Subs Hosp L2
[2021-09-30 14:00] VITALS: RESP 18; O2SAT 96
[2021-09-30 16:00] VITALS: BP 134/84; PULSE 98; RESP 18; TEMP 36.7; O2SAT 98
[2021-09-30 17:45] LABS: Bedside Glucose 342 mg/dL (74-106)
[2021-09-30 20:09] VITALS: BP 126/85; PULSE 87; RESP 16; TEMP 37.1; O2SAT 98
[2021-09-30] MEDS: Loperamide 2 MG Capsule PO (20:23)
[2021-09-30] MEDS: Atorvastatin Calcium 80 MG Tablet PO (21:29)
[2021-09-30] MEDS: Empagliflozin 25 MG Tablet PO (21:29)
[2021-09-30] MEDS: traZODone 100 MG Tablet PO (21:30)
[2021-09-30 21:50] LABS: Bedside Glucose 372 mg/dL (74-106)
[2021-10-01 02:22] VITALS: BP 113/67; PULSE 85; RESP 16; TEMP 36.8; O2SAT 99
[2021-10-01 06:24] LABS: Absolute Lymphocyte Count 1.96 X10^3/uL (0.83-4.51); Absolute Neutrophil Count 2.8 X10^3/uL (2.0-7.7); Basophil# 0.04 X10^3/uL; Basophil% 0.7 % (0-1); Eosinophil# 0.38 X10^3/uL; Eosinophils% 6.6 % (0-5); Hematocrit 29.6 % (40-54); Lymphocyte # 1.96 X10^3/ul (0.83-4.51); Mean Corp Hgb Conc 30.4 g/dL (32-36); Mean Corpuscular Hgb 26.6 pg (27.0-32.0); Mean Corpuscular Volume 87.6 fL (80-94); Mean Platelet Vol. 9.6 fl (6.2-12.0); Monocyte# 0.61 X10^3/uL; Monocyte% 10.6 % (0-10); NRBC Flagged by Analyzer 0 % (0-5); Neutrophil # 2.76 X10^3/uL (2.7-7.7); Neutrophil % 47.8 % (47-70); Platelet Count 365 K/mm3 (150-450); RBC Distribution Width SD 44.2 fl (35.1-43.9); Red Blood Count 3.38 M/mm3 (4.6-6.2); White Blood Count 5.8 K/mm3 (4.4-11.0)
[2021-10-01] MEDS: Insulin Lispro 100 UNIT/ML INSULN.PEN SC ×4 (06:36→21:35)
[2021-10-01 06:53] LABS: Anion Gap 4 (5-15); BUN 24 mg/dL (7-18); BUN/Creat Ratio 24.2 RATIO (10-20); Calcium,Total 8.9 mg/dL (8.5-10.1); Chloride 106 mmol/L (98-107); Creatinine, Serum 0.99 mg/dL (0.70-1.30); EST Glomerular Filtration Rate 82 mL/min (>60); Est Glom Filt Rate - Afr Amer 100 mL/min (>60); Estimated Creatinine Clearance 85.93 ml/min; Glucose 227 mg/dL (74-106); Potassium 4.2 mmol/L (3.5-5.1); Sodium Level 138 mmol/L (136-145)
[2021-10-01 07:01] LABS: Bedside Glucose 208 mg/dL (74-106)
[2021-10-01] MEDS: Gabapentin 800 MG Tablet PO ×3 (07:58→21:35)
[2021-10-01 07:59] VITALS: PULSE 88
[2021-10-01] MEDS: Metoprolol(XL)Succ 25 MG Tablet PO (07:59)
[2021-10-01 08:00] VITALS: BP 122/87; PULSE 99; RESP 18; TEMP 36.7; O2SAT 98
[2021-10-01] MEDS: Clopidogrel Bisulfate 75 MG Tablet PO (08:00)
[2021-10-01] MEDS: Loperamide 2 MG Capsule PO ×2 (08:02→20:24)
[2021-10-01] MEDS: 0.9% Saline Lock 10 ML Syringe IV (10:13)
--- NOTE | 2021-10-01 12:06 | PCM.PN.HOSP ---
Documented by User: Claudia Hammer NP, [employer] REDEVELOPMENT SITE MANAGER-C 10/01/21 12:13 Subjective Subjective Patient seen and examined. In much better spirits today. States he got good sleep overnight. Foot pain well controlled at this time. Denies other symptoms or complaints. Objective Data Objective Data Vital Signs: Vital Signs Temp Pulse Resp BP Pulse Ox O2 Del Method 98.0 F 99 18 122/87 H 98 Room Air 10/01/21 08:00 10/01/21 08:00 10/01/21 08:00 10/01/21 08:00 10/01/21 08:00 10/01/21 08:00 Oxygen Delivery Method Room Air Weight: 164 lb 10.965 oz Body Mass Index (BMI) 22.9 Intake & Output: Intake and Output for Last 24 Hours 09/29/21 09/30/21 10/01/21 23:59 23:59 23:59 Intake Total 318.5 / 318.5 257.5 / 257.5 100 / 100 Output Total 1275 / 1275 900 / 900 Balance 318.5 / 318.5 -1017.5 / -1017.5 -800 / -800 Lab / Micro Data Result Diagrams: 10/01/21 05:50 10/01/21 05:50 Labs: Laboratory Results - last 24 hr 09/30/21 17:17: POC Glucose 342 H 09/30/21 21:28: POC Glucose 372 H 10/01/21 05:50: WBC 5.8, RBC 3.38 L, Hgb 9.0 L, Hct 29.6 L, MCV 87.6, MCH 26.6 L, MCHC 30.4 L, RDW Std Deviation 44.2 H, RDW Coeff of Imtiaz 14.0, Plt Count 365, MPV 9.6, Immature Gran % (Auto) 0.300, Neut % (Auto) 47.8, Lymph % (Auto) 34.0, [place] % (Auto) 10.6 H, Eos % (Auto) 6.6 H, Baso % (Auto) 0.7, Absolute Neuts (auto) 2.8, Absolute Lymphs (auto) 1.96, Nucleated RBC % 0 10/01/21 05:50: Sodium 138, Potassium 4.2, Chloride 106, Carbon Dioxide 28.0, Anion Gap 4 L, BUN 24 H, Creatinine 0.99, Estim Creat Clear Calc 85.93, Est GFR (MDRD) Af Amer 100, Est GFR (MDRD) Non-Af 82, BUN/Creatinine Ratio 24.2 H, Glucose 227 H, Calcium 8.9 10/01/21 06:35: POC Glucose 208 H Micro: Microbiology 09/29/21 Unknown Tissue - Left Foot Gram Stain - Final 09/29/21 Unknown Tissue - Left Foot Wound Culture - Preliminary Enterobacter cloacae complex GNR lactose thermostatic controls supervisor 09/29/21 Unknown Tissue - 4th Toe Gram Stain - Final 09/29/21 Unknown Tissue - 4th Toe Wound Culture - Preliminary GNR lactose thermostatic controls supervisor Gram negative usman 09/29/21 Unknown Tissue - 4th Toe Gram Stain - Final 09/29/21 Unknown Tissue - 4th Toe Wound Culture - Preliminary Gram negative usman GNR lactose thermostatic controls supervisor 09/29/21 Unknown Tissue - Left Foot Gram Stain - Final 09/29/21 Unknown Tissue - Left Foot Wound Culture - Preliminary GNR lactose thermostatic controls supervisor Gram negative usman Gram negative usman#2 Gram positive organism 09/29/21 Unknown Bone - Toe Gram Stain - Final 09/29/21 Unknown Bone - Toe Wound Culture - Preliminary GNR lactose thermostatic controls supervisor Gram negative usman Gram negative usman#2 Gram positive organism 09/30/21 14:00 Stool C. difficile DNA Amplification - Final 09/27/21 12:00 Wound - Left Foot Gram Stain - Final 09/27/21 12:00 Wound - Left Foot Wound Culture - Final Escherichia coli Gram positive usman 09/27/21 09:25 Blood Culture (Wb) - Right Forearm Blood Culture - Preliminary No growth in 48 hours. 09/27/21 08:25 Blood Culture (Wb) - Anticubital Left Blood Culture - Preliminary No growth in 48 hours. Physical Exam Const alert and oriented x3 Orientation / Consciousness: awake, oriented to person, oriented to place and oriented to time HEENT normocephalic and moist oral mucous membranes Eyes PERRL, EOMs intact bilaterally and conjunctivae normal Neck no lymphadenopathy Resp normal respiratory effort and clear to auscultation bilaterally Cardio regular rate, regular rhythm and no murmurs Peripheral Pulses: pulses 2+ throughout GI normal to inspection, nondistended, normoactive bowel sounds, non-tender and non-distended Extremity normal to inspection Skin no rashes or lesions noted Skin Narrative: Left foot dressing intact Lesions: no lesions Rashes: no rashes Trauma: no lacerations or abrasions Neuro CN's II-XII intact bilaterally, no focal motor deficits, no sensory deficits noted and deep tendon reflexes 2+ bilaterally Psych mental status grossly normal and affect normal Assessment & Plan Assessment/Plan (1) Diabetic infection of left foot: PLAN: Plan 1.? Left foot neuropathic wound infection-podiatry/ID following.? Underwent vascular intervention due to occluded popliteal artery on left.? Underwent left partial fourth ray resection with incision and drainage of abscess down to the level of first metatarsophalangeal joint 09/29/21.? IV Zosyn pending final repeat cultures.? Due to deep infection, podiatry would like ID consult regarding antibiotic management. 2.? Peripheral arterial disease-vascular surgery following.? Underwent left lower extremity angiogram with balloon angioplasty to left popliteal with stent placed 09/28/2021. 3.? Type 2 diabetes [id number] with sliding scale insulin.? Continue home regimen.? Hemoglobin A1c 8.1%. 4.? CAD with history of CABG August 2021-continue medical management. 5. Hyperlipidemia-continue statin. 6.? Chronic normocytic anemia-appears at baseline. DVT prophylaxis- SCDs This patient was seen by CHESTER KendrickC under the supervision of Dr. Barnett. Documented by User: Dr. Lisa Barnett DO 10/01/21 12:24 Subjective Subjective This patient was seen with Claudia Hammer NP. The following represents my independent history physical examination. Please see below for than the above. Patient reports she is feeling better today with regards to his pain. Appears to be in much better spirits today. Hopes to be able to go home tomorrow and plans to follow-up with outpatient infusion services for his ongoing antibiotic needs after discharge. Was somewhat resistant to the initiation of Lantus but I did discuss with him the importance of blood pressure and sugar control was hospitalized and he agreed to it while he is here but has no intent to go home on insulin. Objective Data Lab / Micro Data Result Diagrams: 10/01/21 05:50 10/01/21 05:50 Physical Exam Const alert, oriented x3, no apparent distress and average body habitus Constitutional Narrative: Upper middle-aged white male lying in bed, appears comfortable nontoxic HEENT head/scalp atraumatic and moist oral mucous membranes Head and Scalp: normocephalic Resp normal respiratory effort, no retractions, no use of accessory muscles and clear to auscultation bilaterally Resp Narrative: Diminished but clear Auscultation: Negative for crackles, rales, rhonchi or wheezes Cardio regular rate, regular rhythm, S1 normal heart sound, S2 normal heart sound, no murmurs, no rub, no gallops, no clicks and no JVD GI normal to inspection, nondistended, normoactive bowel sounds, soft to palpation, non-tender and non-distended Extremity no clubbing, cyanosis or edema Neuro oriented x3, moves all extremities and no focal motor deficits Assessment & Plan Assessment/Plan (1) Diabetic infection of left foot: PLAN: Plan Assessment: Polymicrobial left foot infection status post debridement PAD DM-2 CAD status post CABG 09/04/2021 Hyperlipidemia Diabetic neuropathy Chronic normocytic anemia Mild ischemic cardiomyopathy Chronic low back pain History of tobacco abuse Plan: -E. coli growing out of initial culture -Operative cultures show a gram-negative usman and a second gram-negative usman at left--> definitive results are still pending but preliminary is showing Enterobacter sensitive to cefepime and another organism that is a gram-negative usman lactose thermostatic controls supervisor -Continue cefepime -Patient postop day 2 from left partial fourth ray resection/I&D abscess down to the level of the first metatarsal phalangeal joint capsule/I&D of abscess down to the level of the plantar fascia -Definitive amputation recommended by podiatry but patient declined -Recommending PICC with long-term antibiotics -ID consult pending -Antibiotics altered as above -Continue to monitor cultures -Patient also underwent angioplasty of the left lower extremity by vascular surgery on 09/28/2021 and it appears he is stable with regards to this -Continue aspirin and Plavix -Hemoglobin A1c is 8.1 indicating uncontrolled diabetes however overall control appears improved from May of this past year at which time his hemoglobin A1c was 11.5 -Would recommend continued outpatient adjustment of his antidiabetic medications -Fasting blood sugar 227 this morning and Lantus 8 units added--> patient agreeable to insulin here but denies need for out patient insulin -Continue all cardiac medications as ordered -Diarrhea has improved -Anticipate discharge tomorrow after he seen by infectious disease and outpatient infusion can be set up/PICC placed Charges/Coding Visit Charges Inpatient E&M: 97523 Subs Hosp L2
[2021-10-01 13:25] LABS: Bedside Glucose 307 mg/dL (74-106)
[2021-10-01 14:00] VITALS: BP 128/89; PULSE 97; RESP 18; TEMP 36.6; O2SAT 100
[2021-10-01 17:35] LABS: Bedside Glucose 276 mg/dL (74-106)
[2021-10-01 20:20] VITALS: BP 138/87; PULSE 82; RESP 16; TEMP 36.6; O2SAT 99
[2021-10-01] MEDS: oxyCODONE 5 MG Tablet 10 MG PO (20:24)
[2021-10-01] MEDS: Atorvastatin Calcium 80 MG Tablet PO (21:35)
[2021-10-01] MEDS: traZODone 100 MG Tablet PO (21:35)
[2021-10-01] MEDS: Empagliflozin 25 MG Tablet PO (21:35)
[2021-10-01 22:05] LABS: Bedside Glucose 347 mg/dL (74-106)
[2021-10-02 02:10] VITALS: BP 117/79; PULSE 82; RESP 16; TEMP 36.6; O2SAT 96
[2021-10-02 06:26] LABS: Absolute Lymphocyte Count 2.12 X10^3/uL (0.83-4.51); Absolute Neutrophil Count 3.7 X10^3/uL (2.0-7.7); Basophil# 0.03 X10^3/uL; Basophil% 0.4 % (0-1); Eosinophil# 0.45 X10^3/uL; Eosinophils% 6.7 % (0-5); Hematocrit 32.3 % (40-54); Hemoglobin 9.7 g/dL (13.0-16.5); Lymphocyte # 2.12 X10^3/ul (0.83-4.51); Lymphocyte % 31.4 % (19-41); Mean Corpuscular Hgb 26.4 pg (27.0-32.0); Mean Platelet Vol. 9.5 fl (6.2-12.0); Monocyte% 5.9 % (0-10); NRBC Flagged by Analyzer 0 % (0-5); Neutrophil # 3.73 X10^3/uL (2.7-7.7); Neutrophil % 55.3 % (47-70); Platelet Count 400 K/mm3 (150-450); RBC Distribution Width CV 14.1 % (11.6-14.6); RBC Distribution Width SD 45.6 fl (35.1-43.9); Red Blood Count 3.67 M/mm3 (4.6-6.2); White Blood Count 6.8 K/mm3 (4.4-11.0)
[2021-10-02] MEDS: Insulin Lispro 100 UNIT/ML INSULN.PEN SC ×2 (06:29→13:49)
[2021-10-02 06:54] LABS: Anion Gap 7 (5-15); BUN 29 mg/dL (7-18); BUN/Creat Ratio 34.6 RATIO (10-20); Calcium,Total 8.9 mg/dL (8.5-10.1); Chloride 104 mmol/L (98-107); Creatinine, Serum 0.84 mg/dL (0.70-1.30); EST Glomerular Filtration Rate 100 mL/min (>60); Est Glom Filt Rate - Afr Amer 121 mL/min (>60); Estimated Creatinine Clearance 101.28 ml/min; Glucose 209 mg/dL (74-106); Potassium 3.9 mmol/L (3.5-5.1); Sodium Level 138 mmol/L (136-145)
[2021-10-02 07:05] LABS: Bedside Glucose 194 mg/dL (74-106)
--- NOTE | 2021-10-02 07:35 | PN_ITS ---
Subjective Subjective This 60-year-old L seen 3 days postop after left partial fourth ray resection left plantar midfoot wound debridement as well as medial foot wound debridement. He denies any constitutional symptoms at current. Admits to some occasional diarrhea. Patient voiding urine. Denies any chest pain calf pain shortness of breath. No new complaints overnight. Objective Data Objective Data Vital Signs: Vital Signs Temp Pulse Resp BP Pulse Ox O2 Del Method 97.8 F 82 16 117/79 96 Room Air 10/02/21 02:10 10/02/21 02:10 10/02/21 02:10 10/02/21 02:10 10/02/21 02:10 10/02/21 02:10 Oxygen Delivery Method Room Air Weight: 74.7 kg Body Mass Index (BMI) 22.9 Intake & Output: Intake and Output for Last 24 Hours 09/30/21 10/01/21 10/02/21 23:59 23:59 23:59 Intake Total 257.5 / 257.5 1436 / 1436 Output Total 1275 / 1275 2450 / 3125 2125 / 2125 Balance -1017.5 / -1017.5 -1014 / -1689 -2125 / -2125 Lab / Micro Data Result Diagrams: 10/02/21 Unknown 10/02/21 Unknown Labs: Laboratory Results - last 24 hr 10/01/21 13:03: POC Glucose 307 H 10/01/21 17:13: POC Glucose 276 H 10/01/21 21:34: POC Glucose 347 H 10/02/21 06:28: POC Glucose 194 H 10/02/21 : WBC 6.8, RBC 3.67 L, Hgb 9.7 L, Hct 32.3 L, MCV 88.0, MCH 26.4 L, MCHC 30.0 L, RDW Std Deviation 45.6 H, RDW Coeff of Imtiaz 14.1, Plt Count 400, MPV 9.5, Immature Gran % (Auto) 0.300, Neut % (Auto) 55.3, Lymph % (Auto) 31.4, [place] % (Auto) 5.9, Eos % (Auto) 6.7 H, Baso % (Auto) 0.4, Absolute Neuts (auto) 3.7, Absolute Lymphs (auto) 2.12, Nucleated RBC % 0 10/02/21 : Sodium 138, Potassium 3.9, Chloride 104, Carbon Dioxide 27.0, Anion Gap 7, BUN 29 H, Creatinine 0.84, Estim Creat Clear Calc 101.28, Est GFR (MDRD) Af Amer 121, Est GFR (MDRD) Non-Af 100, BUN/Creatinine Ratio 34.6 H, Glucose 209 H, Calcium 8.9 Micro: Microbiology 09/29/21 Unknown Tissue - Left Foot Gram Stain - Final 09/29/21 Unknown Tissue - Left Foot Wound Culture - Preliminary Enterobacter cloacae complex GNR lactose micro lab analyst 09/29/21 Unknown Tissue - 4th Toe Gram Stain - Final 09/29/21 Unknown Tissue - 4th Toe Wound Culture - Preliminary GNR lactose micro lab analyst Gram negative usman 09/29/21 Unknown Tissue - 4th Toe Gram Stain - Final 09/29/21 Unknown Tissue - 4th Toe Wound Culture - Preliminary Gram negative usman GNR lactose micro lab analyst 09/29/21 Unknown Tissue - Left Foot Gram Stain - Final 09/29/21 Unknown Tissue - Left Foot Wound Culture - Preliminary GNR lactose micro lab analyst Gram negative usman Gram negative usman#2 Gram positive organism 09/29/21 Unknown Bone - Toe Gram Stain - Final 09/29/21 Unknown Bone - Toe Wound Culture - Preliminary GNR lactose micro lab analyst Gram negative usman Gram negative usman#2 Gram positive organism 09/30/21 14:00 Stool C. difficile DNA Amplification - Final 09/27/21 12:00 Wound - Left Foot Gram Stain - Final 09/27/21 12:00 Wound - Left Foot Wound Culture - Final Escherichia coli Gram positive usman 09/27/21 09:25 Blood Culture (Wb) - Right Forearm Blood Culture - Preliminary No growth in 48 hours. 09/27/21 08:25 Blood Culture (Wb) - Anticubital Left Blood Culture - Pr eliminary No growth in 48 hours. Physical Exam Narrative Patient alert oriented person place time. Vascular: Diminished dorsalis pedis posterior tibial pulses left lower extremity. Atrophic skin changes. Necrotic left fourth digit. Nonhealing left foot wounds. Neurologic: Light touch protective sensation absent to bilateral feet. Dermatologic: Full-thickness wound to dorsal lateral left forefoot plantar midfoot wound these wounds are stable at this time. First metatarsal head wound extends down to the level of first metatarsophalangeal joint capsule. Mild erythema edema to the periwound area. No other residual signs of infection at this time. Musculoskeletal: Absent left third digit. Absent left fourth digit. Muscular strength full to bilateral lower extremity compartments. No pain with calf squeeze bilaterally. Assessment & Plan Assessment/Plan (1) Diabetic foot infection: PLAN: Patient examined evaluated, all findings discussed with patient in detail. Patient's left foot wounds appear stable at this time. The left medial first metatarsophalangeal joint wound site tissue cultures growing Enterobacter cloacae I as well as gram-negative usman. This is sensitive to cefepime which patient is receiving currently. Infectious disease is consulted and will evaluate the patient today. This is a limb salvage case and patient is at great risk for partial foot or below-knee amputation. Patient adamantly refusing any definitive amputation at this time, it is my recommendation patient received PICC line for long-term IV antibiotics and attempt to save the limb. As previously discussed with the patient if there are any regression of this wound from time of discharge we will likely proceed with definitive amputation to produce a closed soft tissue envelope and allow for a functional return. Patient understands this. Due to poorly controlled diabetes and significant carb cardiovascular disease both central and peripheral patient has poor wound healing potential. On this admission he did undergo left popliteal artery stenting per Dr. Maciel on 09/28/2021. Discussed with patient that he needs to maintain as close to a nonweightbearing status to his left lower extremity as possible. Upon discharge patient is only permitted to bear weight to the heel in his cam walking boot assisted with a walker for transfer to the bathroom. Patient refusing any home health care for dressing change purposes and states that his will perform the dressing changes per our instructions. Dressing was changed today wound sites redressed with Betadine soaked gauze 4 x 4's Kerlix and a light Mian compression. Will continue to follow patient closely. Patient will likely DC to home. He is adamant against home health care or SNF. Upon discharge I will follow the patient weekly in the wound care center to ensure no recurrence of infection or worsening of his wounds. (2) Cellulitis of toe of left foot: (3) Peripheral vascular disease, unspecified: (4) Non-pressure chronic ulcer of other part of left foot with fat layer exposed: (5) Osteomyelitis of foot, acute:
--- NOTE | 2021-10-02 08:09 | WOUNDNOTE ---
wound photo: left plantar foot
--- NOTE | 2021-10-02 08:09 | WOUNDNOTE ---
wound photo: left medial foot
[2021-10-02 08:10] VITALS: BP 150/90; PULSE 93; RESP 18; TEMP 36.6; O2SAT 98
--- NOTE | 2021-10-02 08:10 | WOUNDNOTE ---
wound photo: left foot
[2021-10-02 08:20] VITALS: PULSE 93
[2021-10-02] MEDS: Gabapentin 800 MG Tablet PO ×2 (08:20→14:40)
[2021-10-02] MEDS: Metoprolol(XL)Succ 25 MG Tablet PO (08:20)
[2021-10-02] MEDS: Clopidogrel Bisulfate 75 MG Tablet PO (08:21)
[2021-10-02] MEDS: 0.9% Saline Lock 10 ML Syringe IV (09:43)
--- NOTE | 2021-10-02 11:21 | DCINST_ITS ---
Discharge Instructions Diet Discharge Diet: Carb Control Diet Activity Weight Bearing Status: No weight bearing (Left lower extremity) and - (Use cam walking boot with walker, may bear weight to heel while using cam walking boot) Dressing / Incision Call your doctor if your incision/area has: Continuous Slow Oozing, Sudden Increased Bleeding, Increased Pain/ Swelling, Increased Redness, Foul Smelling Discharge and Swelling at the incision site Call your doctor if you observe: Fever of 101 or Higher Follow Up Care Test Results: Test results from this visit will be discussed in further detail at your follow- up appointment, if applicable. Discharge Plan Admission Admit Date/Time: 09/27/21 11:30 Primary Reason for Your Visit: Left diabetic infected foot wound Attending Provider: Connie Rai Primary Care Provider: Javy Alcaraz Consulting Providers: Pasquale Watters ; Perry Maciel ; Chahco Santana ; Behzad Li ; Lisa Barnett Discharge Orders/Prescriptions Prescriptions: New acetaminophen [Tylenol] 325 mg Tablet 650 mg PO Q6H PRN PRN (Reason: Pain Score 1-10/Temp > 100.7 F) Qty: 0 0RF daptomycin 500 mg recon soln 500 mg IV Q24H Qty: 54 0RF Rx Instructions: administer over 30 mins. Can give with ertapenem. Stop date 11/24/21. Dx foot osteo. weekly bmp, cbc, LFT, esr, and CK. Fax to [phone] ertapenem 1 gram recon soln 1 g IV Q24H Qty: 54 0RF Rx Instructions: Stop date 11/24/21. Dx foot osteo. weekly bmp, cbc, LFT, esr, and CK. Fax to [phone] sulfamethoxazole-trimethoprim [Bactrim DS] 800-160 mg tablet 1 tab PO BID 42 Days Qty: 84 0RF Continued oxycodone 5 mg tablet 5 mg PO Q6H PRN (Reason: pain) atorvastatin 80 mg tablet 80 mg PO QHS metoprolol succinate 25 mg tablet extended release 24 hr 25 mg PO DAILY gabapentin 800 mg tablet 800 mg PO TID trazodone 100 mg tablet 100 mg PO QHS metformin 1,000 mg tablet 1,000 mg PO BID Label Comments: TAKE 1 TABLET BY MOUTH TWICE A DAY Jardiance 25 mg tablet 25 mg PO DAILY Label Comments: TAKE 1 TABLET BY MOUTH EVERY DAY IN THE MORNING Ozempic 1 mg/dose (4 mg/3 mL) pen injector 1 mg SUBCUT FR Label Comments: 1 MG SUBCUTANEOUS EVERY WEEK FOR 90 DAY(S) Rx Instructions: weekly clopidogrel [Plavix] 75 mg Tablet 75 mg PO DAILY aspirin 81 mg Capsule 81 mg PO DAILY Referrals / Follow Up: Perry Maciel MD [STAFF PHYSICIAN] - Within 2 Weeks Pasquale Watters DPM [STAFF PHYSICIAN] - Within 1 Week Javy Alcaraz DO [Primary Care Provider] - In 1 Week Behzad Li MD [STAFF PHYSICIAN] - Within 2 Weeks Center,Wound [NON-STAFF] - Within 1 Week Disposition Disposition (needs filled in before D/C Order can be placed): Home, Self Care
[2021-10-02 11:35] LABS: Bedside Glucose 265 mg/dL (74-106)
--- NOTE | 2021-10-02 12:03 | CASEMGMT ---
Addendum entered by Yi Hudson 10/02/21 14:38: TC from [facility] at infusion suite, they can see pt tomorrow at 9am. JOE CASTILLO in to pt room, at bedside. Pt and aware of infusion time. states she will perform dressing changes and has already ordered supplies. Pt is still awaiting picc placement. Addendum entered by Yi Hudson 10/02/21 14:28: Faxed IV antibiotic scripts to the infusion suite. TC to infusion suite and left message regarding the faxing of scripts and that pt will dc today. Original Note: TC to Alisha in the infusion suite at [facility]. She is aware that needs to see pt and pt needs a picc, but it is anticipated that pt will need IV atb. She requests face sheet and order be faxed to [phone]. JOE CASTILLO to follow.
--- NOTE | 2021-10-02 12:12 | PCM.DC.SUM ---
Documented by User: Claudia Hammer NP, ICING MACHINE OPERATOR-C 10/02/21 14:52 Providers Date of Admission: 09/27/21 Date of Discharge: 10/02/21 Primary Care Physician: Dr. 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 Routine Comment: Reason for Consult:: diabetic foot wounds Consult: Podiatry Routine Consulting Provider: Pasquale Watters Reason for Consult: Diabetic Foot wound EMERGENT Consult: No MD Notified: Yes Date Notified: 09/27/21 Time Notified: 11:31 Method of Notification: Verbal Consult: Vascular Surgery Routine Consulting Provider: Perry Maciel Reason for Consult: Abnormal vascular studies EMERGENT Consult: No MD Notified: Yes Date Notified: 09/27/21 Time Notified: 11:32 Method of Notification: Verbal 09/30/21 13:10 Consult: Infectious Disease Routine Consulting Provider: Behzad Li Reason for Consult: Diabetic foot infection, osteomyelitis EMERGENT Consult: No MD Notified: Yes Date Notified: 09/30/21 Time Notified: 13:10 Method of Notification: Answering Service Method of Consult:: In-Person Comments:: recurrent foot infection-see wound cultures Reason For Visit: DIABETIC FOOT INFECTION Diagnosis Discharge Diagnosis (1) Diabetic foot infection: Status: Acute Code(s): E11.628 - Type 2 diabetes mellitus with other skin complications; L08.9 - Local infection of the skin and subcutaneous tissue, unspecified (2) Cellulitis of toe of left foot: Status: Acute Code(s): L03.032 - Cellulitis of left toe (3) Peripheral vascular disease, unspecified: Status: Acute Code(s): I73.9 - Peripheral vascular disease, unspecified (4) Non-pressure chronic ulcer of other part of left foot with fat layer exposed: Status: Chronic Code(s): L97.522 - Non-pressure chronic ulcer of other part of left foot with fat layer exposed (5) Osteomyelitis of foot, acute: Status: Acute Code(s): M86.179 - Other acute osteomyelitis, unspecified ankle and foot Medications at Discharge Home Medications empagliflozin 25 mg tablet (Jardiance) 25 mg PO DAILY DM 05/25/21 gabapentin 800 mg tablet 800 mg PO TID pain 05/25/21 metformin 1,000 mg tablet 1,000 mg PO BID DM 05/25/21 semaglutide 1 mg/dose (4 mg/3 mL) subcutaneous pen injector (Ozempic) 1 mg subcut FR DM 05/25/21 trazodone 100 mg tablet 100 mg PO QHS sleep 05/25/21 clopidogrel 75 mg tablet (Plavix) 75 mg PO DAILY blood thinner 07/11/21 aspirin 81 mg capsule 81 mg PO DAILY 09/07/21 atorvastatin 80 mg tablet 80 mg PO QHS 09/19/21 metoprolol succinate 25 mg tablet,extended release 24 hr 25 mg PO DAILY 09/19/21 oxycodone 5 mg tablet 5 mg PO Q6H PRN pain 09/19/21 acetaminophen 325 mg tablet (Tylenol) 650 mg PO Q6H PRN PRN Pain Score 1-10/Temp > 100.7 F #0 tabs 10/02/21 daptomycin 500 mg intravenous solution 500 mg IV Q24H #54 ea 10/02/21 ertapenem 1 gram solution for injection 1 g IV Q24H #54 ea 10/02/21 sulfamethoxazole 800 mg-trimethoprim 160 mg tablet (Bactrim DS) 1 tab PO BID 6 weeks #84 tabs 10/02/21 Hospital Course Operations - (left partial fourth ray resection with incision and drainage of abscess down to the level of first metatarsophalangeal joint 09/29/21. ) Procedures Angiogram (left lower extremity angiogram with balloon angioplasty to left popliteal with stent placed 09/28/2021.) Summary of Care Provided Hospital Course: Patient is a 60-year-old male admitted 09/27/2021 due to diabetic foot wound. 1.? Left foot neuropathic wound infection-podiatry/ID consulted during admission.? Underwent vascular intervention due to occluded popliteal artery on left.? Underwent left partial fourth ray resection with incision and drainage of abscess down to the level of first metatarsophalangeal joint 09/29/21.? ID consulted. PICC line ordered. Plan for daptomycin and ertapenem for 8 weeks as well as oral Bactrim for 6 weeks. Follow-up with ID in 2 weeks. Follow-up with wound center podiatry within 1 week at discharge. Patient declined home health/SNF. Instructed on nonweightbearing. 2.? Peripheral arterial disease-vascular surgery following.? Underwent left lower extremity angiogram with balloon angioplasty to left popliteal with stent placed 09/28/2021. Continue aspirin, statin 3.? Type 2 diabetes mellitus-Continue home regimen.? Hemoglobin A1c 8.1%. 4.? CAD with history of CABG August 2021-continue medical management. 5. Hyperlipidemia-continue statin. 6.? Chronic normocytic anemia-appears at baseline. Physical Exam Const alert and oriented x3 Orientation / Consciousness: awake, oriented to person, oriented to place and oriented to time HEENT normocephalic and moist oral mucous membranes Eyes PERRL, EOMs intact bilaterally and conjunctivae normal Neck no lymphadenopathy Resp normal respiratory effort and clear to auscultation bilaterally Cardio regular rate, regular rhythm and no murmurs Peripheral Pulses: pulses 2+ throughout GI normal to inspection, nondistended, normoactive bowel sounds, non-tender and non-distended Extremity normal to inspection Skin no rashes or lesions noted Skin Narrative: Left foot dressing intact-changed by podiatry this morning Lesions: no lesions Rashes: no rashes Trauma: no lacerations or abrasions Neuro CN's II-XII intact bilaterally, no focal motor deficits, no sensory deficits noted and deep tendon reflexes 2+ bilaterally Psych mental status grossly normal, flat affect Patient seen and examined prior to discharge. Physical assessment as noted above. Patient is stable for discharge with follow up recommendations as noted above. This patient was seen by JAMIA Kendrick under the supervision of Dr. Rai. Time spent examining patient, reviewing data and subsequent management of care: 27 minutes Weight / BMI Weight Weight: 164 lb 10.965 oz Body Mass Index (BMI) 22.9 ABG / Lab / Microbiology Data Result Diagrams: 10/02/21 Unknown 10/02/21 Unknown Laboratory: Laboratory Results - last 24 hr 10/01/21 13:03: POC Glucose 307 H 10/01/21 17:13: POC Glucose 276 H 10/01/21 21:34: POC Glucose 347 H 10/02/21 06:28: POC Glucose 194 H 10/02/21 10:56: POC Glucose 265 H 10/02/21 : WBC 6.8, RBC 3.67 L, Hgb 9.7 L, Hct 32.3 L, MCV 88.0, MCH 26.4 L, MCHC 30.0 L, RDW Std Deviation 45.6 H, RDW Coeff of Imtiaz 14.1, Plt Count 400, MPV 9.5, Immature Gran % (Auto) 0.300, Neut % (Auto) 55.3, Lymph % (Auto) 31.4, Baker % (Auto) 5.9, Eos % (Auto) 6.7 H, Baso % (Auto) 0.4, Absolute Neuts (auto) 3.7, Absolute Lymphs (auto) 2.12, Nucleated RBC % 0 10/02/21 : Sodium 138, Potassium 3.9, Chloride 104, Carbon Dioxide 27.0, Anion Gap 7, BUN 29 H, Creatinine 0.84, Estim Creat Clear Calc 101.28, Est GFR (MDRD) Af Amer 121, Est GFR (MDRD) Non-Af 100, BUN/Creatinine Ratio 34.6 H, Glucose 209 H, Calcium 8.9 Microbiology: Microbiology 09/27/21 08:25 Blood Culture (Wb) - Anticubital Left Blood Culture - Final No growth in 5 days. 09/27/21 09:25 Blood Culture (Wb) - Right Forearm Blood Culture - Final No growth in 5 days. 09/29/21 Unknown Tissue - Left Foot Gram Stain - Final 09/29/21 Unknown Tissue - Left Foot Wound Culture - Final Enterobacter cloacae complex Escherichia coli 09/29/21 Unknown Tissue - 4th Toe Gram Stain - Final 09/29/21 Unknown Tissue - 4th Toe Wound Culture - Final Escherichia coli Enterobacter cloacae complex 09/29/21 Unknown Tissue - 4th Toe Gram Stain - Final 09/29/21 Unknown Tissue - 4th Toe Wound Culture - Final Enterobacter cloacae complex Escherichia coli 09/29/21 Unknown Tissue - Left Foot Gram Stain - Final 09/29/21 Unknown Tissue - Left Foot Wound Culture - Preliminary Escherichia coli Enterobacter cloacae complex Staphylococcus aureus 09/29/21 Unknown Bone - Toe Gram Stain - Final 09/29/21 Unknown Bone - Toe Wound Culture - Preliminary Escherichia coli Enterobacter cloacae complex Staphylococcus aureus GPC Poss Enterococcus sp 09/30/21 14:00 Stool C. difficile DNA Amplification - Final 09/27/21 12:00 Wound - Left Foot Gram Stain - Final 09/27/21 12:00 Wound - Left Foot Wound Culture - Final Escherichia coli Gram positive usman D/C Instructions Discharge Diet: Carb Control Diet Weight Bearing Status: No weight bearing (Left lower extremity) and - (Use cam walking boot with walker, may bear weight to heel while using cam walking boot) Call your doctor if your incision/area has: Continuous Slow Oozing, Sudden Increased Bleeding, Increased Pain/ Swelling, Increased Redness, Foul Smelling Discharge and Swelling at the incision site Call your doctor if you observe: Fever of 101 or Higher Meaningful Use Info Meaningful Use Diagnoses (Choose all that apply): None applicable Discharge Plan Admission Admit Date/Time: 09/27/21 11:30 Primary Reason for Your Visit: Left diabetic infected foot wound Attending Provider: Connie Rai Primary Care Provider: Javy Alcaraz Consulting Providers: Pasquale Watters ; Perry Maciel ; Chacho Santana ; Behzad Li ; Lisa Barnett Discharge Orders/Prescriptions Prescriptions: New acetaminophen [Tylenol] 325 mg Tablet 650 mg PO Q6H PRN PRN (Reason: Pain Score 1-10/Temp > 100.7 F) Qty: 0 0RF daptomycin 500 mg recon soln 500 mg IV Q24H Qty: 54 0RF Rx Instructions: administer over 30 mins. Can give with ertapenem. Stop date 11/24/21. Dx foot osteo. weekly bmp, cbc, LFT, esr, and CK. Fax to [phone] ertapenem 1 gram recon soln 1 g IV Q24H Qty: 54 0RF Rx Instructions: Stop date 11/24/21. Dx foot osteo. weekly bmp, cbc, LFT, esr, and CK. Fax to [phone] sulfamethoxazole-trimethoprim [Bactrim DS] 800-160 mg tablet 1 tab PO BID 42 Days Qty: 84 0RF Continued oxycodone 5 mg tablet 5 mg PO Q6H PRN (Reason: pain) atorvastatin 80 mg tablet 80 mg PO QHS metoprolol succinate 25 mg tablet extended release 24 hr 25 mg PO DAILY gabapentin 800 mg tablet 800 mg PO TID trazodone 100 mg tablet 100 mg PO QHS metformin 1,000 mg tablet 1,000 mg PO BID Label Comments: TAKE 1 TABLET BY MOUTH TWICE A DAY Jardiance 25 mg tablet 25 mg PO DAILY Label Comments: TAKE 1 TABLET BY MOUTH EVERY DAY IN THE MORNING Ozempic 1 mg/dose (4 mg/3 mL) pen injector 1 mg SUBCUT FR Label Comments: 1 MG SUBCUTANEOUS EVERY WEEK FOR 90 DAY(S) Rx Instructions: weekly clopidogrel [Plavix] 75 mg Tablet 75 mg PO DAILY aspirin 81 mg Capsule 81 mg PO DAILY Referrals / Follow Up: Perry Maciel MD [STAFF PHYSICIAN] - Within 2 Weeks Pasquale Watters DPM [STAFF PHYSICIAN] - Within 1 Week Javy Alcaraz DO [Primary Care Provider] - In 1 Week Behzad Li MD [STAFF PHYSICIAN] - Within 2 Weeks Center,Wound [NON-STAFF] - Within 1 Week Disposition Disposition (needs filled in before D/C Order can be placed): Home, Self Care Documented by User: Dr. Connie Rai MD 10/02/21 15:16 Providers Date of Admission: 09/27/21 Reason For Visit: DIABETIC FOOT INFECTION Diagnosis Discharge Diagnosis (1) Diabetic foot infection: Status: Acute Code(s): E11.628 - Type 2 diabetes mellitus with other skin complications; L08.9 - Local infection of the skin and subcutaneous tissue, unspecified (2) Cellulitis of toe of left foot: Status: Acute Code(s): L03.032 - Cellulitis of left toe (3) Peripheral vascular disease, unspecified: Status: Acute Code(s): I73.9 - Peripheral vascular disease, unspecified (4) Non-pressure chronic ulcer of other part of left foot with fat layer exposed: Status: Chronic Code(s): L97.522 - Non-pressure chronic ulcer of other part of left foot with fat layer exposed (5) Osteomyelitis of foot, acute: Status: Acute Code(s): M86.179 - Other acute osteomyelitis, unspecified ankle and foot Medications at Discharge Home Medications empagliflozin 25 mg tablet (Jardiance) 25 mg PO DAILY DM 05/25/21 gabapentin 800 mg tablet 800 mg PO TID pain 05/25/21 metformin 1,000 mg tablet 1,000 mg PO BID DM 05/25/21 semaglutide 1 mg/dose (4 mg/3 mL) subcutaneous pen injector (Ozempic) 1 mg subcut FR DM 05/25/21 trazodone 100 mg tablet 100 mg PO QHS sleep 05/25/21 clopidogrel 75 mg tablet (Plavix) 75 mg PO DAILY blood thinner 07/11/21 aspirin 81 mg capsule 81 mg PO DAILY 09/07/21 atorvastatin 80 mg tablet 80 mg PO QHS 09/19/21 metoprolol succinate 25 mg tablet,extended release 24 hr 25 mg PO DAILY 09/19/21 oxycodone 5 mg tablet 5 mg PO Q6H PRN pain 09/19/21 acetaminophen 325 mg tablet (Tylenol) 650 mg PO Q6H PRN PRN Pain Score 1-10/Temp > 100.7 F #0 tabs 10/02/21 daptomycin 500 mg intravenous solution 500 mg IV Q24H #54 ea 10/02/21 ertapenem 1 gram solution for injection 1 g IV Q24H #54 ea 10/02/21 sulfamethoxazole 800 mg-trimethoprim 160 mg tablet (Bactrim DS) 1 tab PO BID 6 weeks #84 tabs 10/02/21 ABG / Lab / Microbiology Data Result Diagrams: 10/02/21 Unknown 10/02/21 Unknown Discharge Plan Admission Admit Date/Time: 09/27/21 11:30 Primary Reason for Your Visit: Left diabetic infected foot wound Attending Provider: Connie Rai Primary Care Provider: Javy Alcaraz Consulting Providers: Pasquale Watters ; Perry Maciel ; Chacho Santana ; Behzad Li ; Lisa Barnett Discharge Orders/Prescriptions Prescriptions: New acetaminophen [Tylenol] 325 mg Tablet 650 mg PO Q6H PRN PRN (Reason: Pain Score 1-10/Temp > 100.7 F) Qty: 0 0RF daptomycin 500 mg recon soln 500 mg IV Q24H Qty: 54 0RF Rx Instructions: administer over 30 mins. Can give with ertapenem. Stop date 11/24/21. Dx foot osteo. weekly bmp, cbc, LFT, esr, and CK. Fax to [phone] ertapenem 1 gram recon soln 1 g IV Q24H Qty: 54 0RF Rx Instructions: Stop date 11/24/21. Dx foot osteo. weekly bmp, cbc, LFT, esr, and CK. Fax to [phone] sulfamethoxazole-trimethoprim [Bactrim DS] 800-160 mg tablet 1 tab PO BID 42 Days Qty: 84 0RF Continued oxycodone 5 mg tablet 5 mg PO Q6H PRN (Reason: pain) atorvastatin 80 mg tablet 80 mg PO QHS metoprolol succinate 25 mg tablet extended release 24 hr 25 mg PO DAILY gabapentin 800 mg tablet 800 mg PO TID trazodone 100 mg tablet 100 mg PO QHS metformin 1,000 mg tablet 1,000 mg PO BID Label Comments: TAKE 1 TABLET BY MOUTH TWICE A DAY Jardiance 25 mg tablet 25 mg PO DAILY Label Comments: TAKE 1 TABLET BY MOUTH EVERY DAY IN THE MORNING Ozempic 1 mg/dose (4 mg/3 mL) pen injector 1 mg SUBCUT FR Label Comments: 1 MG SUBCUTANEOUS EVERY WEEK FOR 90 DAY(S) Rx Instructions: weekly clopidogrel [Plavix] 75 mg Tablet 75 mg PO DAILY aspirin 81 mg Capsule 81 mg PO DAILY Referrals / Follow Up: Perry Maciel MD [STAFF PHYSICIAN] - Within 2 Weeks Pasquale Watters DPM [STAFF PHYSICIAN] - Within 1 Week Javy Alcaraz DO [Primary Care Provider] - In 1 Week Behzad Li MD [STAFF PHYSICIAN] - Within 2 Weeks Center,Wound [NON-STAFF] - Within 1 Week Disposition Disposition (needs filled in before D/C Order can be placed): Home, Self Care Charges/Coding Addendum Addendum: This patient was seen in conjunction with Pasquale Orourke NP. I have independently interviewed and examined the patient and reviewed pertinent historical, laboratory, and other data. I have reviewed her note and concur with her documentation 60-year-old male with past medical history of type II DM, hypertension, CAD status post CABG x4, who presented with worsening diabetic foot ulcers. Patient had CABG done about a month prior to admission. Patient had vascular studies done 2 weeks prior and he had left popliteal arterial occlusive disease. Vascular surgery planned on an intervention. Patient was found to have gangrenous appearance of the area of the third and fourth toes. He underwent ultrasound-guided access retrograde right femoral artery balloon angioplasty. Patient subsequently on 09/26 08/06 had left partial fourth ray resection, I&D of abscess down to the level of the first metatarsal phalangeal joint capsule, I&D of abscess down to the level of the plantar fascia. We will cultures grew Enterobacter. Infectious disease was consulted. Patient was discharged home on daptomycin and ertapenem for 8 weeks. He went be on Bactrim for 6 weeks. He will follow-up with infectious disease in 2 weeks. There will be weekly labs. PICC line was ordered. Physical Exam: Gen: Comfortable, not pale, not jaundiced CVS:HS I +II, regular, no murmurs RESP: Diminished at lung bases GI: BS present and normal, soft, nontender, no palpable organs EXT:No edema Time spent coordinating all aspects of patient's care, discussing with nursin minutes Visit Charges Inpatient E&M: 89033 Disch Hosp
[2021-10-02] MEDS: Loperamide 2 MG Capsule PO (12:51)
--- NOTE | 2021-10-02 13:58 | PCM.CONS.GEN ---
Assessment & Plan Assessment/Plan (1) Diabetic infection of left foot: PLAN: Plan L foot osteo and abscess - taken to OR 09/[address] Watters for partial L 4th ray resection. Surg cx with enterobacter (some sample I to erta, some R to erta, some are S to erta), ecoli, staph aureus, and enterococcus. Recent 6 weeks of dapto/erta. Will order dapto/erta for 8 weeks, bactrim for 6 weeks. Weekly labs, ID followup in 2 weeks. Ordered picc. Will follow, thank you, d/w patient case manager and primary team. HPI Consult Data Date of Consult: 10/02/21 HPI Narrative Reason for Consultation: osteo HPI Narrative: NAYELI JOSE, is a 60 M who presented with about 2-3 weeks of worsening L foot ulceration, redness, swelling. No fever or chills. Recently completed 6 weeks dapto/erta for L foot osteo. Came back here, admitted on zosyn, now on cefepime. Taken to OR 09/[address] Watters for partial L 4th ray resection and I&D of abscess. Discharged planned for today. Pt reports feeling frustrated. Full ROS performed and neg except as noted above. 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 Osteomyelitis of foot, left, acute Peripheral vascular disease, unspecified Restless legs Uncontrolled type 2 diabetes mellitus Home Medications empagliflozin 25 mg tablet (Jardiance) 25 mg PO DAILY DM 05/25/21 [History Last Taken 05/25/21] gabapentin 800 mg tablet 800 mg PO TID pain 05/25/21 [History Last Taken 07/31/21] metformin 1,000 mg tablet 1,000 mg PO BID DM 05/25/21 [History Last Taken 05/25/21] semaglutide 1 mg/dose (4 mg/3 mL) subcutaneous pen injector (Ozempic) 1 mg subcut FR DM 05/25/21 [History Last Taken 05/19/21] trazodone 100 mg tablet 100 mg PO QHS sleep 05/25/21 [History Last Taken 05/24/21] clopidogrel 75 mg tablet (Plavix) 75 mg PO DAILY blood thinner 07/11/21 [History Last Taken Unknown] aspirin 81 mg capsule 81 mg PO DAILY 09/07/21 [History Last Taken Unknown] atorvastatin 80 mg tablet 80 mg PO QHS 09/19/21 [History Last Taken Unknown] metoprolol succinate 25 mg tablet,extended release 24 hr 25 mg PO DAILY 09/19/21 [History Last Taken Unknown] oxycodone 5 mg tablet 5 mg PO Q6H PRN pain 09/19/21 [History Last Taken Unknown] acetaminophen 325 mg tablet (Tylenol) 650 mg PO Q6H PRN PRN Pain Score 1-10/Temp > 100.7 F #0 tabs 10/02/21 [Rx Last Taken Unknown] daptomycin 500 mg intravenous solution 500 mg IV Q24H #54 ea 10/02/21 [Rx Last Taken Unknown] ertapenem 1 gram solution for injection 1 g IV Q24H #54 ea 10/02/21 [Rx Last Taken Unknown] sulfamethoxazole 800 mg-trimethoprim 160 mg tablet (Bactrim DS) 1 tab PO BID 6 weeks #84 tabs 10/02/21 [Rx Last Taken Unknown] Allergy/AdvReac Type Severity Reaction Status Date / Time No Known Allergies Allergy Verified 09/27/21 08:55 Family History Mother Hypertension CVA (cerebral vascular accident) Diabetes Surgical History H/O coronary artery bypass surgery (08/31/21) H/O spinal fusion History of left heart catheterization (07/31/21) S/P hardware removal Social History household members: spouse Smoking Status: Former smoker how long ago did patient quit smoking: Quit 1987, smoked 1.5 ppd since teen. alcohol intake: never substance use type: does not use Physical Exam Const alert, oriented x3 and no apparent distress General Appearance: cooperative HEENT normocephalic and head/scalp atraumatic Eyes PERRL and EOMs intact bilaterally Neck supple and No nodes Resp normal air movement and clear to auscultation bilaterally Cardio regular rate and regular rhythm GI soft to palpation, non-tender and non-distended Extremity General Extremity: Negative for edema Skin Skin Narrative: reviewed L foot photos Neuro CN's II-XII intact bilaterally Lab / Micro Data Attestation: I reviewed the patient's lab results. Result Diagrams: 10/02/21 Unknown 10/02/21 Unknown Labs: Laboratory Results - last 24 hr 10/01/21 17:13: POC Glucose 276 H 10/01/21 21:34: POC Glucose 347 H 10/02/21 06:28: POC Glucose 194 H 10/02/21 10:56: POC Glucose 265 H 10/02/21 : WBC 6.8, RBC 3.67 L, Hgb 9.7 L, Hct 32.3 L, MCV 88.0, MCH 26.4 L, MCHC 30.0 L, RDW Std Deviation 45.6 H, RDW Coeff of Imtiaz 14.1, Plt Count 400, MPV 9.5, Immature Gran % (Auto) 0.300, Neut % (Auto) 55.3, Lymph % (Auto) 31.4, Turner % (Auto) 5.9, Eos % (Auto) 6.7 H, Baso % (Auto) 0.4, Absolute Neuts (auto) 3.7, Absolute Lymphs (auto) 2.12, Nucleated RBC % 0 10/02/21 : Sodium 138, Potassium 3.9, Chloride 104, Carbon Dioxide 27.0, Anion Gap 7, BUN 29 H, Creatinine 0.84, Estim Creat Clear Calc 101.28, Est GFR (MDRD) Af Amer 121, Est GFR (MDRD) Non-Af 100, BUN/Creatinine Ratio 34.6 H, Glucose 209 H, Calcium 8.9 Micro: Microbiology 09/27/21 08:25 Blood Culture (Wb) - Anticubital Left Blood Culture - Final No growth in 5 days. 09/27/21 09:25 Blood Culture (Wb) - Right Forearm Blood Culture - Final No growth in 5 days. 09/29/21 Unknown Tissue - Left Foot Gram Stain - Final 09/29/21 Unknown Tissue - Left Foot Wound Culture - Final Enterobacter cloacae complex Escherichia coli 09/29/21 Unknown Tissue - 4th Toe Gram Stain - Final 09/29/21 Unknown Tissue - 4th Toe Wound Culture - Final Escherichia coli Enterobacter cloacae complex 09/29/21 Unknown Tissue - 4th Toe Gram Stain - Final 09/29/21 Unknown Tissue - 4th Toe Wound Culture - Final Enterobacter cloacae complex Escherichia coli 09/29/21 Unknown Tissue - Left Foot Gram Stain - Final 09/29/21 Unknown Tissue - Left Foot Wound Culture - Preliminary Escherichia coli Enterobacter cloacae complex Staphylococcus aureus 09/29/21 Unknown Bone - Toe Gram Stain - Final 09/29/21 Unknown Bone - Toe Wound Culture - Preliminary Escherichia coli Enterobacter cloacae complex Staphylococcus aureus GPC Poss Enterococcus sp
[2021-10-02 14:38] VITALS: BP 137/87; PULSE 101; RESP 18; TEMP 36.7; O2SAT 99
== END 2021-10-02 16:55 | disposition home or self-care (01) | DRG 629 ==
LOC: ED 10:13 → MS3 10:49
PROVIDERS: Anesthesiology; Internal Medicine; Nurse Practitioner Family; Podiatrist; Admitting Provider Internal Medicine; Emergency Provider Emergency Medicine; PCP Student in an Organized Health Care Education/Training Program; Visit Provider Internal Medicine
PROC: 0STN0ZZ Resection of Left Metatarsal-Phalangeal Joint, Open Approach (ICD-10-PCS; principal; 2021-09-29 13:30)
DX: E11.628 Type 2 diabetes mellitus with other skin complications (principal); E11.52 Type 2 diabetes mellitus with diabetic peripheral angiopathy with gangrene; M86.172 Other acute osteomyelitis, left ankle and foot; L97.522 Non-pressure chronic ulcer of other part of left foot with fat layer exposed; E11.40 Type 2 diabetes mellitus with diabetic neuropathy, unspecified; E11.621 Type 2 diabetes mellitus with foot ulcer; E11.51 Type 2 diabetes mellitus with diabetic peripheral angiopathy without gangrene; E11.69 Type 2 diabetes mellitus with other specified complication; D64.9 Anemia, unspecified; E78.5 Hyperlipidemia, unspecified; I10 Essential (primary) hypertension; I25.10 Atherosclerotic heart disease of native coronary artery without angina pectoris; I25.5 Ischemic cardiomyopathy; B96.20 Unspecified Escherichia coli [E. coli] as the cause of diseases classified elsewhere; Z79.02 Long term (current) use of antithrombotics/antiplatelets; Z79.84 Long term (current) use of oral hypoglycemic drugs; Z87.891 Personal history of nicotine dependence; Z79.82 Long term (current) use of aspirin; G89.29 Other chronic pain; Z95.1 Presence of aortocoronary bypass graft; L03.032 Cellulitis of left toe
CPT/HCPCS: 36245; 36415; 36569; 37226; 37228; 37232; 71045; 73630; 73660; 75710; 76000; 76937; 80048; 80053; 82962; 83036; 83605; 85025; 85610; 85652; 85730; 86140; 87015; 87040; 87070; 87075; 87077; 87102; 87116; 87186; 87205; 87206; 87493; 87640; 88305; 88311; 93005; 97162; 97166; 97802; 99152; 99153; 99251; 99285; C1760; J7030; J7040; J7120; Q9967; A4216; C1725; C1769; C1876; C1887; C1894; G0463; J2405

== ENCOUNTER → 2021-10-03 | Outpatient (CLI) | payer OTHER, SELFPAY ==
[2021-10-03 09:10] VITALS: BP 110/68; PULSE 77; RESP 16; TEMP 36.5; O2SAT 98; BMI 23.0
[2021-10-03 10:05] VITALS: BP 110/68; PULSE 93; RESP 14; TEMP 36.5; O2SAT 94
== END | disposition home or self-care (01) ==
LOC: MEDOUTP 08:54
PROVIDERS: PCP Student in an Organized Health Care Education/Training Program; Referring Provider Internal Medicine Infectious Disease; Visit Provider Internal Medicine Infectious Disease
DX: M86.8X7 Other osteomyelitis, ankle and foot (principal)
CPT/HCPCS: 96365; 96367; J0878; A4216; J3490

== ENCOUNTER → 2021-10-04 | Outpatient (CLI) | payer OTHER, SELFPAY ==
[2021-10-04 10:20] VITALS: BP 94/60; PULSE 60; RESP 14; TEMP 36.4; O2SAT 97; BMI 23.0
[2021-10-04 10:54] VITALS: BP 103/62; PULSE 62
== END | disposition home or self-care (01) ==
LOC: MEDOUTP 09:56
PROVIDERS: PCP Student in an Organized Health Care Education/Training Program; Referring Provider Internal Medicine Infectious Disease; Visit Provider Internal Medicine Infectious Disease
DX: M86.8X7 Other osteomyelitis, ankle and foot (principal)
CPT/HCPCS: 96365; 96367; J0878; A4216; J3490

== ENCOUNTER → 2021-10-05 | Outpatient (CLI) | payer OTHER, SELFPAY ==
[2021-10-05 10:08] VITALS: BP 104/65; PULSE 76; RESP 16; TEMP 36.3; O2SAT 99
[2021-10-05 10:39] VITALS: BP 101/60; PULSE 72; RESP 14; TEMP 36.7; O2SAT 99
== END | disposition home or self-care (01) ==
LOC: MEDOUTP 09:53
PROVIDERS: PCP Student in an Organized Health Care Education/Training Program; Referring Provider Internal Medicine Infectious Disease; Visit Provider Internal Medicine Infectious Disease
DX: M86.8X7 Other osteomyelitis, ankle and foot (principal)
CPT/HCPCS: 96365; 96367; J0878; A4216; J3490

== ENCOUNTER → 2021-10-06 | Outpatient (CLI) | payer OTHER, SELFPAY ==
[2021-10-06 10:10] VITALS: BP 113/63; PULSE 74; RESP 16; TEMP 36.4; O2SAT 98; BMI 23.0
== END | disposition home or self-care (01) ==
LOC: MEDOUTP 09:55
PROVIDERS: PCP Student in an Organized Health Care Education/Training Program; Referring Provider Internal Medicine Infectious Disease; Visit Provider Internal Medicine Infectious Disease
DX: M86.8X7 Other osteomyelitis, ankle and foot (principal)
CPT/HCPCS: 96365; 96367; J0878; A4216; J3490

== ENCOUNTER 2021-10-07 08:55 | Outpatient (CLI) | payer OTHER, SELFPAY ==
[2021-10-07] MEDS: 0.9% Saline Lock 10 ML Syringe IV ×2 (09:02→10:32)
== END 2021-10-07 10:36 | disposition home or self-care (01) ==
LOC: MEDOUTP 08:55 → MS3 08:56
PROVIDERS: PCP Student in an Organized Health Care Education/Training Program; Referring Provider Internal Medicine Infectious Disease; Visit Provider Internal Medicine Infectious Disease
DX: M86.8X7 Other osteomyelitis, ankle and foot (principal)
CPT/HCPCS: 96365; 96367; J0878; J7050; A4216; J3490

== ENCOUNTER 2021-10-08 09:00 | Outpatient (CLI) | payer OTHER, SELFPAY ==
[2021-10-08 09:16] VITALS: BP 115/71; PULSE 71; RESP 16; TEMP 36.6; O2SAT 100
[2021-10-08] MEDS: 0.9% Saline Lock 10 ML Syringe IV ×2 (09:19→10:12)
== END 2021-10-08 10:10 | disposition home or self-care (01) ==
LOC: MEDOUTP 09:04 → PCU 09:04
PROVIDERS: PCP Student in an Organized Health Care Education/Training Program; Referring Provider Internal Medicine Infectious Disease; Visit Provider Internal Medicine Infectious Disease
DX: M86.8X7 Other osteomyelitis, ankle and foot (principal)
CPT/HCPCS: 96365; 96367; J0878; J7050; A4216; J3490

== ENCOUNTER → 2021-10-09 | Outpatient (CLI) | payer OTHER, SELFPAY ==
[2021-10-09 10:10] VITALS: BP 126/69; PULSE 72; RESP 16; TEMP 36.2; O2SAT 99
[2021-10-09 11:01] LABS: Erythrocyte Sedimentation Rate 56 mm/hr (0-20)
[2021-10-09 11:02] LABS: Hematocrit 29.1 % (40-54); Hemoglobin 8.6 g/dL (13.0-16.5); Mean Corp Hgb Conc 29.6 g/dL (32-36); Mean Corpuscular Volume 87.9 fL (80-94); Mean Platelet Vol. 9.4 fl (6.2-12.0); Platelet Count 392 K/mm3 (150-450); RBC Distribution Width CV 14.4 % (11.6-14.6); RBC Distribution Width SD 46.1 fl (35.1-43.9); Red Blood Count 3.31 M/mm3 (4.6-6.2)
[2021-10-09 11:09] LABS: AST(SGOT) 21 U/L (15-37); Alanine Aminotransfer ALT/SGPT 23 U/L (16-61); Albumin, Serum 2.6 g/dL (3.2-5.0); Alkaline Phosphatase 82 U/L (45-117); Anion Gap 3 (5-15); BUN 26 mg/dL (7-18); Bilirubin, Direct 0.09 mg/dL (0.00-0.30); CPK Total, Creatine Kinase 34 U/L (39-308); Calcium,Total 9.1 mg/dL (8.5-10.1); Chloride 107 mmol/L (98-107); Creatinine, Serum 0.93 mg/dL (0.70-1.30); EST Glomerular Filtration Rate 89 mL/min (>60); Est Glom Filt Rate - Afr Amer 107 mL/min (>60); Globulin 4.3 g/dL (2.2-4.2); Glucose 144 mg/dL (74-106); Potassium 4.7 mmol/L (3.5-5.1); Protein, Total 6.9 g/dL (6.4-8.2); Sodium Level 137 mmol/L (136-145)
[2021-10-09 11:10] VITALS: BP 135/78; PULSE 72; RESP 16; TEMP 36.2; O2SAT 97
== END | disposition home or self-care (01) ==
LOC: MEDOUTP 09:56
PROVIDERS: PCP Student in an Organized Health Care Education/Training Program; Referring Provider Internal Medicine Infectious Disease; Visit Provider Internal Medicine Infectious Disease
DX: M86.8X7 Other osteomyelitis, ankle and foot (principal)
CPT/HCPCS: 96365; 96367; 36592; 80048; 80076; 82550; 85027; 85652; J0878; A4216; J3490

== ENCOUNTER 2021-10-10 10:30 | Outpatient (RCR) | payer OTHER, SELFPAY ==
[2021-09-15 00:34] VITALS: BP 115/73; PULSE 96; RESP 16; TEMP 36.2; BMI 23.8
[2021-09-19 09:49] VITALS: BP 127/80; PULSE 106; TEMP 36.4; BMI 23.8
--- NOTE | 2021-09-19 10:20 | PCM.WC.PN ---
History of Present Illness Date of Service: 09/19/21 Chief Complaint: Left 3rd toe redness History of Wound: This 60-year-old male seen in the wound care center for chronic left foot ulceration secondary to peripheral arterial disease. Patient recently underwent quadruple bypass surgery successfully at [facility]. At current he denies any pain to his left lower extremity, constitutional symptoms, chest pain, shortness of breath, calf pain. He notes some improvement to bleeding and blood flow to left lower extremity ulcerations. Patient has been weight maintaining a heel weightbearing status assisted with a walker to left foot. He notes that he predominantly uses a wheelchair while at home though. No other complaints at this time. Patient denies any rest pain. Objective Data Objective Data Vital Signs: Vital Signs Temp Pulse Resp BP 97.6 F L 106 H 16 127/80 H 09/19/21 09:49 09/19/21 09:49 09/15/21 00:34 09/19/21 09:49 Weight: 77.564 kg Body Mass Index (BMI) 23.8 Physical Exam Narrative Patient alert oriented to person, place, and time. Patient ambulating heel weightbearing in surgical shoe left lower extremity. Vascular: Dorsalis pedis posterior tibial pulses monophasic to left lower extremity. Dorsalis pedis posterior tibial pulses right side palpable 1 out of 4. Delayed capillary fill time left lower extremity. Diminished digital hair growth. Atrophic skin changes noted. Neurologic: Light touch protective sensation absent to bilateral feet. No evidence of clonus or Babinski sign. Dermatologic: Partial third ray resection to the left foot demonstrates a fibrotic base with minimal drainage atrophic skin edges and necrosis extending to the fourth digit. Full-thickness ulceration to plantar midfoot at site of incision demonstrates significant dry necrosis to the periincisional area. No obvious signs of infection at this time. Resolved edema and erythema. No focal increase in warmth. Increased necrosis to the left fourth digit, dry stable, no residual signs of infection. New area of irritation necrosis to the mid dorsal medial first MPJ on the left foot. No evidence of deep probing undermining at this time. No signs of infection. Musculoskeletal: No wound forming deformity noted to bilateral lower extremity. Muscular strength 5 out of 5 to bilateral lower extremity compartments No pain with calf squeeze bilateral lower extremities. Debridement Note Debridement Note Post-Debridement Measurements and Additional Note: Post-Debridement Measurements/Treatment WC - Nurse 1 - General Ulcer Assessment Start: 09/19/21 09:48 Freq: Status: Active Protocol: MONICA Activity Type Activity Date Activity User E-sign Co-sign Detail Recorded Client Recorded Date Recorded By Document 09/19/21 09:49 EVA [id number] 09/19/21 09:53 EVA 09/19/21 09:49 WC - Today's Visit Information Type of service Follow-up Visit (Physician/HEALTH INFORMATION MANAGER ) Arrival Mode Ambulatory Patient Identification Verified (Name & Yes ) Patient Requires Transmission-Based No Precautions Safety Precautions NA Height and Weight Body Mass Index (BMI) 23.8 BMI Classification Normal Vital Signs Temperature (97.8 F-99.1 F) 97.6 F L Temperature Source Temporal Pulse Rate (60-100) 106 H Pulse Location Monitor Blood Pressure (90/60-120/80) 127/80 H Blood Pressure Mean (mm Hg) 95 Source Monitor History Since Last Visit- (Skip if this is Patient's initial visit) Have you changed medications since your No last visit? Any new allergies or adverse reactions No Had a fall/change in ADL's that may No increase risk of falls Signs or symptoms of abuse and/or No neglect since last visit Have you been in the hospital since your No last visit? Has dressing in place as prescribed Yes Has compression in place as prescribed Yes Has offloadiing in place as prescribed N/A Experienced any changes in pain level or No management Left Footwear Surgical Shoe with pressure relief insole Right Footwear Regular Shoe Pain Scale: 0-10 Numeric Is Patient Pain Free? Yes - Nurse 1 - General Ulcer Measurement Start: 09/19/21 09:48 Freq: Status: Active Protocol: Activity Type Activity Date Activity User E-sign Co-sign Detail Recorded Client Recorded Date Recorded By Document 09/19/21 09:49 EVA [id number] 09/19/21 09:53 EVA 09/19/21 09:49 Wound Center Nurse 1 #6- L MEDIAL FOOT -Combined with other wound No -Current Size (cm) - Length 2 -Current Size (cm) - Width 1 -Current Size (cm) - Depth 0.1 -Total Square Cm 2 -Photo Taken No -Tunneling No -Undermining/Tunneling No -Circular Undermining No -Change in Wound Grade/Stage No -Exudate Amt None Present -Wound Margin Flat & Intact -Granulation Amt None Present (0 %) -Granulation Quality N/A -Slough/Fibrin Yes -Necrosis Amt Large (67-100%) -Necrotic Tissue Type Eschar -Structure Exposed N/A -Texture (Bernadette-wound Skin Appearance) No Abnormality, Assessed -Moisture (Bernadette-wound Skin Appearance) No Abnormality, Assessed -Color (Bernadette-wound Skin Appearance) Assessed, Erythema -Temperature (Bernadette-wound Skin No Abnormality Appearance) (Pt Warm) -Tenderness on Palpation (Bernadette-wound No Skin Appearance) -Ulcer Cleansing Rinsed/ Irrigated with Saline -Foul Odor after Cleansing No -Anesthetic Used 4% Lidocaine Solution #5 left dorsal foot -Combined with other wound No -Current Size (cm) - Length 4.8 -Current Size (cm) - Width 1.9 -Current Size (cm) - Depth 2.4 -Total Square Cm 9.12 -Photo Taken No -Tunneling No -Undermining/Tunneling No -Circular Undermining No -Change in Wound Grade/Stage No -Exudate Amt Large -Exudate Type Yellow/Green -Wound Margin Distinct, Outline Attached -Granulation Quality N/A -Necrosis Amt Large (67-100%) -Necrotic Tissue Type Adherent Slough -Structure Exposed Tendon -Texture (Bernadette-wound Skin Appearance) No Abnormality, Assessed -Moisture (Bernadette-wound Skin Appearance) No Abnormality, Assessed -Color (Bernadette-wound Skin Appearance) No Abnormality, Assessed -Temperature (Bernadette-wound Skin No Abnormality Appearance) (Pt Warm) -Tenderness on Palpation (Bernadette-wound No Skin Appearance) -Foul Odor after Cleansing No -Anesthetic Used 4% Lidocaine Solution #4- L PLANTAR FOOT -Combined with other wound No -Current Size (cm) - Length 3 -Current Size (cm) - Width 3.5 -Current Size (cm) - Depth 0.9 -Total Square Cm 10.5 -Photo Taken No -Epithelialization None Present -Tunneling No -Undermining/Tunneling No -Circular Undermining No -Exudate Amt Large -Exudate Type Yellow/Green -Wound Margin Distinct, Outline Attached -Granulation Amt Large (67-100%) -Granulation Quality N/A -Slough/Fibrin Yes -Necrosis Amt Large (67-100%) -Necrotic Tissue Type Adherent Slough -Structure Exposed Tendon -Texture (Bernadette-wound Skin Appearance) No Abnormality, Assessed -Moisture (Bernadette-wound Skin Appearance) No Abnormality, Assessed -Color (Bernadette-wound Skin Appearance) No Abnormality, Assessed -Temperature (Bernadette-wound Skin No Abnormality Appearance) (Pt Warm) -Tenderness on Palpation (Bernadette-wound No Skin Appearance) -Ulcer Cleansing Rinsed/ Irrigated with Saline -Foul Odor after Cleansing No -Anesthetic Used 4% Lidocaine Solution Assessment/Plan Assessment/Plan (1) Peripheral vascular disease, unspecified: CODE(S): I73.9 - Peripheral vascular disease, unspecified (2) Non-pressure chronic ulcer of other part of left foot with fat layer exposed: CODE(S): L97.522 - Non-pressure chronic ulcer of other part of left foot with fat layer exposed PLAN: Patient examined evaluated, all findings reyes with patient in detail. Left foot wound examined. There is noted to be increased granulation tissue to the partial third ray resection site. The plantar midfoot wound appears to be well demarcated at this time. There is new irritation at the dorsal medial first MPJ this is a site that was wrapped with Coban intraoperatively during the patient's stay after his coronary artery bypass surgery. At this time no debridement was performed. Wound site was examined. Redressed with saline wet-to-dry to the third ray resection site with Betadine paint to the plantar midfoot wound and dorsal medial first MPJ on the left side. This was applied along with a dry sterile dressing. Patient will maintain a heel weightbearing status to left lower extremity. We will continue daily dressing changes consisting of saline flushes drying to the site saline wet-to-dry to the third ray resection site and Betadine to the other wounds all along with a dry sterile dressing. Patient will follow up in 1 week. Rx for Keflex 500 mg 4 times daily dispensed. We will plan for outpatient debridement of left foot wounds with fourth toe amp amputation. Still awaiting vascular study results. Upon examination improved blood flow is noted.
[2021-09-26 10:48] VITALS: BP 121/89; PULSE 92; RESP 16; TEMP 36.3; BMI 23.8
--- NOTE | 2021-09-26 11:23 | PN.PCM_ITS ---
History of Present Illness Date of Service: 09/26/21 Chief Complaint: Left 3rd toe redness History of Wound: This 60-year-old male seen in the wound care center for chronic left foot ulceration secondary to peripheral arterial disease. Patient recently underwent quadruple bypass surgery successfully at [facility]. At current he denies any pain to his left lower extremity, constitutional symptoms, chest pain, shortness of breath, calf pain. He notes some improvement to bleeding and blood flow to left lower extremity ulcerations. Patient has been weight maintaining a heel weightbearing status assisted with a walker to left foot. He notes that he predominantly uses a wheelchair while at home though. No other complaints at this time. Patient denies any rest pain. Objective Data Objective Data Vital Signs: Vital Signs Temp Pulse Resp BP O2 Del Method 97.4 F L 92 16 121/89 H Room Air 09/26/21 10:48 09/26/21 10:48 09/26/21 10:48 09/26/21 10:48 09/26/21 10:48 Oxygen Delivery Method Room Air Weight: 77.564 kg Body Mass Index (BMI) 23.8 Physical Exam Narrative Patient alert oriented to person, place, and time. Patient ambulating heel weightbearing in surgical shoe left lower extremity. Vascular: Dorsalis pedis posterior tibial pulses monophasic to left lower extremity. Dorsalis pedis posterior tibial pulses right side palpable 1 out of 4. Delayed capillary fill time left lower extremity. Diminished digital hair growth. Atrophic skin changes noted. Neurologic: Light touch protective sensation absent to bilateral feet. No evidence of clonus or Babinski sign. Dermatologic: Partial third ray resection to the left foot demonstrates a fibrotic base with minimal drainage atrophic skin edges and necrosis extending to the fourth digit. Full-thickness ulceration to plantar midfoot at site of incision demonstrates significant dry necrosis to the periincisional area. No obvious signs of infection at this time. Resolved edema and erythema. No focal increase in warmth. Increased necrosis to the left fourth digit, dry stable, no residual signs of infection. New area of irritation necrosis to the mid dorsal medial first MPJ on the left foot. No evidence of deep probing undermining at this time. No signs of infection. Musculoskeletal: No wound forming deformity noted to bilateral lower extremity. Muscular strength 5 out of 5 to bilateral lower extremity compartments No pain with calf squeeze bilateral lower extremities. Debridement Note Debridement Note Post-Debridement Measurements and Additional Note: Post-Debridement Measurements/Treatment ROYCE - Nurse 1 - General Ulcer Assessment Start: 09/19/21 09:48 Freq: Status: Active Protocol: MONICA Activity Type Activity Date Activity User E-sign Co-sign Detail Recorded Client Recorded Date Recorded By Document 09/19/21 09:49 AK [id number] 09/19/21 09:53 AK Document 09/26/21 10:48 [facility] [id number] 09/26/21 10:56 BM 09/19/21 09/26/21 09:49 10:48 ROYCE - Today's Visit Information Type of service Follow-up Visit Follow-up Visit (Physician/CREW LEAD (Physician/CREW LEAD ) ) Arrival Mode Ambulatory Wheelchair Transfer Assistance None Accompanied by Patient Identification Verified (Name & Yes Yes ) Patient Requires Transmission-Based No No Precautions Safety Precautions NA Height and Weight Body Mass Index (BMI) 23.8 23.8 BMI Classification Normal Normal Vital Signs Temperature (97.8 F-99.1 F) 97.6 F L 97.4 F L Temperature Source Temporal Temporal Pulse Rate (60-100) 106 H 92 Pulse Location Monitor Monitor Respiratory Rate (12-18) 16 Respiratory rate source Observation Oxygen Delivery Method Room Air Blood Pressure (90/60-120/80) 127/80 H 121/89 H Blood Pressure Mean (mm Hg) 95 99 Source Monitor Monitor Position Sitting Blood Pressure Location Right Arm History Since Last Visit- (Skip if this is Patient's initial visit) Have you changed medications since your No No last visit? Any new allergies or adverse reactions No No Had a fall/change in ADL's that may No No increase risk of falls Signs or symptoms of abuse and/or No No neglect since last visit Have you been in the hospital since your No No last visit? Has dressing in place as prescribed Yes Yes Has compression in place as prescribed Yes N/A Has offloadiing in place as prescribed N/A Yes Experienced any changes in pain level or No No management Left Footwear Surgical Shoe Surgical Shoe with pressure with pressure relief insole relief insole Right Footwear Regular Shoe Regular Shoe Pain Scale: 0-10 Numeric Is Patient Pain Free? Yes Yes ROYCE Baig Nurse 1 - General Ulcer Measurement Start: 09/19/21 09:48 Freq: Status: Active Protocol: Activity Type Activity Date Activity User E-sign Co-sign Detail Recorded Client Recorded Date Recorded By Document 09/19/21 09:49 ME [id number] 09/19/21 09:53 ME Document 09/26/21 10:48 [facility] [id number] 09/26/21 10:56 BM 09/19/21 09/26/21 09:49 10:48 Wound Center Nurse 1 #6- L MEDIAL FOOT -Combined with other wound No No -Current Size (cm) - Length 2 3.0 -Current Size (cm) - Width 1 2.0 -Current Size (cm) - Depth 0.1 0.1 -Total Square Cm 2 6.00 -Date of Last Picture (Recall this 09/26/21 field) -Photo Taken No Yes -Epithelialization None Present -Tunneling No No -Undermining/Tunneling No No -Circular Undermining No No -Change in Wound Grade/Stage No -Exudate Amt None Present None Present -Wound Margin Flat & Intact Distinct, Outline Attached -Granulation Amt None Present (0 None Present (0 %) %) -Granulation Quality N/A -Slough/Fibrin Yes Yes -Necrosis Amt Large (67-100%) Large (67-100%) -Necrotic Tissue Type Eschar Eschar -Structure Exposed N/A -Texture (Bernadette-wound Skin Appearance) No Abnormality, Assessed, Assessed Localized Edema ,Scarring -Moisture (Bernadette-wound Skin Appearance) No Abnormality, Assessed Assessed -Color (Bernadette-wound Skin Appearance) Assessed, Assessed, Erythema Erythema -Temperature (Bernadette-wound Skin No Abnormality No Abnormality Appearance) (Pt Warm) (Pt Warm) -Tenderness on Palpation (Bernadette-wound No Yes Skin Appearance) -Ulcer Cleansing Rinsed/ Soap and Water Irrigated with Saline -Foul Odor after Cleansing No No -Anesthetic Used 4% Lidocaine 4% Lidocaine Solution Solution #5 left dorsal foot -Combined with other wound No No -Current Size (cm) - Length 4.8 0.2 -Current Size (cm) - Width 1.9 0.3 -Current Size (cm) - Depth 2.4 0.1 -Total Square Cm 9.12 0.06 -Date of Last Picture (Recall this 09/26/21 field) -Photo Taken No Yes -Epithelialization Large 67-100% -Tunneling No No -Undermining/Tunneling No No -Circular Undermining No No -Change in Wound Grade/Stage No -Exudate Amt Large None Present -Exudate Type Yellow/Green -Wound Margin Distinct, Distinct, Outline Outline Attached Attached -Granulation Amt None Present (0 %) -Granulation Quality N/A -Slough/Fibrin Yes -Necrosis Amt Large (67-100%) Small (1-33%) -Necrotic Tissue Type Adherent Slough Eschar -Structure Exposed Tendon -Texture (Bernadette-wound Skin Appearance) No Abnormality, Assessed, Assessed Fluctuance -Moisture (Bernadette-wound Skin Appearance) No Abnormality, Assessed Assessed -Color (Bernadette-wound Skin Appearance) No Abnormality, Assessed Assessed -Temperature (Bernadette-wound Skin No Abnormality No Abnormality Appearance) (Pt Warm) (Pt Warm) -Tenderness on Palpation (Bernadette-wound No No Skin Appearance) -Ulcer Cleansing Soap and Water -Foul Odor after Cleansing No No -Anesthetic Used 4% Lidocaine 4% Lidocaine Solution Solution #4- L PLANTAR FOOT -Combined with other wound No No -Current Size (cm) - Length 3 3.6 -Current Size (cm) - Width 3.5 3.0 -Current Size (cm) - Depth 0.9 0.8 -Total Square Cm 10.5 10.80 -Date of Last Picture (Recall this 09/26/21 field) -Photo Taken No Yes -Epithelialization None Present None Present -Tunneling No No -Undermining/Tunneling No No -Circular Undermining No No -Exudate Amt Large Medium -Exudate Type Yellow/Green Serosanguineous -Wound Margin Distinct, Distinct, Outline Outline Attached Attached -Granulation Amt Large (67-100%) None Present (0 %) -Granulation Quality N/A -Slough/Fibrin Yes Yes -Necrosis Amt Large (67-100%) Small (1-33%) -Necrotic Tissue Type Adherent Slough Adherent Slough -Structure Exposed Tendon Tendon -Texture (Bernadette-wound Skin Appearance) No Abnormality, Assessed Assessed -Moisture (Bernadette-wound Skin Appearance) No Abnormality, No Abnormality Assessed -Color (Bernadette-wound Skin Appearance) No Abnormality, Assessed, Assessed Erythema -Temperature (Bernadette-wound Skin No Abnormality No Abnormality Appearance) (Pt Warm) (Pt Warm) -Tenderness on Palpation (Bernadette-wound No Skin Appearance) -Ulcer Cleansing Rinsed/ Soap and Water Irrigated with Saline -Foul Odor after Cleansing No No -Anesthetic Used 4% Lidocaine 4% Lidocaine Solution Solution #3- L FOOT 3RD TOE AMP SITE (POST OP) -Combined with other wound No -Current Size (cm) - Length 4.3 -Current Size (cm) - Width 1.6 -Current Size (cm) - Depth 2.7 -Total Square Cm 6.88 -Date of Last Picture (Recall this 09/26/21 field) -Photo Taken Yes -Epithelialization None Present -Tunneling No -Undermining/Tunneling No -Circular Undermining No -Exudate Amt Medium -Exudate Type Serosanguineous -Wound Margin Distinct, Outline Attached -Granulation Amt Small (1-33%) -Granulation Quality Red -Slough/Fibrin Yes -Necrosis Amt Large (67-100%) -Necrotic Tissue Type Adherent Slough -Texture (Bernadette-wound Skin Appearance) Assessed, Scarring -Moisture (Bernadette-wound Skin Appearance) Assessed -Color (Bernadette-wound Skin Appearance) Assessed -Temperature (Bernadette-wound Skin No Abnormality Appearance) (Pt Warm) -Tenderness on Palpation (Bernadette-wound No Skin Appearance) -Ulcer Cleansing Soap and Water -Foul Odor after Cleansing No -Anesthetic Used 4% Lidocaine Solution WC - Nurse 2 - General Ulcer CM Notes Start: 09/19/21 09:48 Freq: Status: Active Protocol: Activity Type Activity Date Activity User E-sign Co-sign Detail Recorded Client Recorded Date Recorded By Document 09/19/21 10:07 [id number] 09/19/21 10:25 Document 09/26/21 11:21 [id number] 09/26/21 11:22 09/19/21 09/26/21 10:07 11:21 Wound Center Nurse 2 #2 Left Foot 2,3 rd Web Space -Time 10:24 -Correct Patient Yes -Correct Side, Site, Position Yes -Procedure Performed No -Wound/Ulcer Outcome Not Healed #6- L MEDIAL FOOT -Time 10:24 -Correct Patient Yes No -Correct Side, Site, Position Yes No -Correct Procedure Yes No -Procedure Performed No No -Wound/Ulcer Outcome Not Healed Not Healed #5 left dorsal foot -Time 10:24 -Correct Patient Yes No -Correct Side, Site, Position Yes No -Correct Procedure Yes No -Procedure Performed No No -Wound/Ulcer Outcome Not Healed Not Healed #4- L PLANTAR FOOT -Time 10:24 -Correct Patient Yes No -Correct Side, Site, Position Yes No -Correct Procedure Yes No -Procedure Performed No No -Wound/Ulcer Outcome Not Healed Not Healed #3- L FOOT 3RD TOE AMP SITE (POST OP) -Time 10:24 -Correct Patient Yes No -Correct Side, Site, Position Yes No -Correct Procedure Yes No -Procedure Performed No No -Wound/Ulcer Outcome Not Healed Not Healed Pain Scale: 0-10 Numeric Is Patient Pain Free? Yes Yes - Nurse 3 - General Ulcer D/C NN Start: 09/19/21 09:48 Freq: Status: Active Protocol: Activity Type Activity Date Activity User E-sign Co-sign Detail Recorded Client Recorded Date Recorded By Document 09/19/21 10:29 ME [id number] 09/19/21 10:31 ME 09/19/21 10:29 Wound Care Nurse 3 #2 Left Foot 2,3 rd Web Space -Ulcer Cleansing Rinsed/ Irrigated with Saline -Foul Odor after Cleansing No -Negative Pressure Wound Therapy N/A -Other Dressing wet to dry -Primary Dressing Covered/Secured with Dry Gauze & Roll Gauze, Secured with Tape #6- L MEDIAL FOOT -Ulcer Cleansing Rinsed/ Irrigated with Saline -Foul Odor after Cleansing No -Negative Pressure Wound Therapy N/A -Other Dressing betadine -Primary Dressing Covered/Secured with Dry Gauze & Roll Gauze, Secured with Tape #4- L PLANTAR FOOT -Ulcer Cleansing Rinsed/ Irrigated with Saline -Foul Odor after Cleansing No -Negative Pressure Wound Therapy N/A -Other Dressing betadine -Primary Dressing Covered/Secured with Dry Gauze & Roll Gauze, Secured with Tape Pain Scale: 0-10 Numeric Is Patient Pain Free? Yes - Visit Discharge Discharge Condition Stable Ambulatory Status Ambulatory Transportation Private Auto Medication Reconcilliation completed & Yes provided to patient/care provider Clinical Summary of Care Provided Yes Assessment/Plan Assessment/Plan (1) Peripheral vascular disease, unspecified: CODE(S): I73.9 - Peripheral vascular disease, unspecified (2) Non-pressure chronic ulcer of other part of left foot with fat layer exposed: CODE(S): L97.522 - Non-pressure chronic ulcer of other part of left foot with fat layer exposed PLAN: Patient examined evaluated, all findings reyes with patient in detail. Left foot wound examined. There is noted to be increased granulation tissue to the partial third ray resection site. The plantar midfoot wound appears to be well demarcated at this time. There is new irritation at the dorsal medial first MPJ this is a site that was wrapped with Coban intraoperatively during the patient's stay after his coronary artery bypass surgery. At this time no debridement was performed. Wound site was examined. Redressed with saline wet-to-dry to the third ray resection site with Betadine paint to the plantar midfoot wound and dorsal medial first MPJ on the left side. This was applied along with a dry sterile dressing. Patient will maintain a heel weightbearing status to left lower extremity. We will continue daily dressing changes consisting of saline flushes drying to the site saline wet-to-dry to the third ray resection site and Betadine to the other wounds all along with a dry sterile dressing. Patient will follow up in 1 week. Plan at this time is for patient to go to the emergency room be admitted to the hospital for IV antibiotics and amputation of his fourth digit with debridement of his left foot wounds on , 09/28/2021.
[2021-10-10 10:26] VITALS: BP 115/70; PULSE 69; RESP 18; TEMP 36.1; BMI 23.8
--- NOTE | 2021-10-10 11:06 | PN.PCM_ITS ---
History of Present Illness Date of Service: 10/10/21 Chief Complaint: Left 3rd toe redness History of Wound: This 60-year-old male seen in the wound care center for chronic left foot ulceration secondary to peripheral arterial disease. Patient recently underwent quadruple bypass surgery successfully at [facility]. Patient has stent placed in popliteal artery due to popliteal occlusion and left lower extremity on the hospital 1 week prior. Subsequently the next day patient had a wound debridement with amputation of the fourth ray left open with vessel loop closure to the dorsal midfoot and wet-to-dry dressings to the plantar midfoot and medial first metatarsophalangeal joints. At this time he denies any constitutional symptoms chest pain calf pain or shortness of breath. Patient has been ambulating limited to his house with a cam boot limited to his heel. Patient receiving 6 weeks IV antibiotics at infusion center. No other complaints. Objective Data Objective Data Vital Signs: Vital Signs Temp Pulse Resp BP O2 Del Method 96.9 F L 69 18 115/70 Room Air 10/10/21 10:26 10/10/21 10:26 10/10/21 10:26 10/10/21 10:10/10/21 10:26 Oxygen Delivery Method Room Air Weight: 77.564 kg Body Mass Index (BMI) 23.8 Physical Exam Narrative Improve vascularity left lower extremity. Dermatologic: Partial third and fourth ray resection sites demonstrate a reduced With vessel loop closure intact. Wound demonstrates granular nature. Plantar midfoot wound demonstrates fibrogranular base pre and postdebridement. Medial first metatarsal phalangeal joint wound is down to level of capsule there is a bleeding granular wound edge but the base of the wound is nonviable at this time. Musculoskeletal: Partial amputation to left third and fourth ray. no wound forming deformity noted to bilateral lower extremity. Muscular strength 5 out of 5 to bilateral lower extremity compartments No pain with calf squeeze bilateral lower extremities. Debridement Note Debridement Note Post-Debridement Measurements and Additional Note: Post-Debridement Measurements/Treatment - Nurse 1 - General Ulcer Assessment Start: 09/19/21 09:48 Freq: Status: Active Protocol: ROYCE.LOWEXT Activity Type Activity Date Activity User E-sign Co-sign Detail Recorded Client Recorded Date Recorded By Document 09/19/21 09:49 [facility] [id number] 09/19/21 09:53 VA Document 09/26/21 10:48 [facility] [id number] 09/26/21 10:56 BM Document 10/10/21 10:26 [id number] 10/10/21 10:50 MW 09/19/21 09/26/21 10/10/21 09:49 10:48 10:26 - Today's Visit Information Type of service Follow-up Visit Follow-up Visit Follow-up Visit (Physician/MITER OPERATOR (Physician/MITER OPERATOR (Physician/MITER OPERATOR ) ) ) Arrival Mode Ambulatory Wheelchair Wheelchair Transfer Assistance None None Accompanied by Patient Identification Verified (Name & Yes Yes Yes ) Patient Requires Transmission-Based No No No Precautions Safety Precautions NA NA Height and Weight Body Mass Index (BMI) 23.8 23.8 23.8 BMI Classification Normal Normal Normal Vital Signs Temperature (97.8 F-99.1 F) 97.6 F L 97.4 F L 96.9 F L Temperature Source Temporal Temporal Temporal Pulse Rate (60-100) 106 H 92 69 Pulse Location Monitor Monitor Monitor Respiratory Rate (12-18) 16 18 Respiratory rate source Observation Observation Oxygen Delivery Method Room Air Room Air Blood Pressure (90/60-120/80) 127/80 H 121/89 H 115/70 Blood Pressure Mean (mm Hg) 95 99 85 Source Monitor Monitor Monitor Position Sitting Sitting Blood Pressure Location Right Arm Left Arm History Since Last Visit- (Skip if this is Patient's initial visit) Have you changed medications since your No No No last visit? Any new allergies or adverse reactions No No No Had a fall/change in ADL's that may No No No increase risk of falls Signs or symptoms of abuse and/or No No No neglect since last visit Have you been in the hospital since your No No No last visit? Has dressing in place as prescribed Yes Yes Yes Has compression in place as prescribed Yes N/A Yes Has offloadiing in place as prescribed N/A Yes Yes Experienced any changes in pain level or No No No management Left Footwear Surgical Shoe Surgical Shoe Removable Cast with pressure with pressure Walker/Walking relief insole relief insole Boot Right Footwear Regular Shoe Regular Shoe Regular Shoe Pain Scale: 0-10 Numeric Is Patient Pain Free? Yes Yes Yes - Nurse 1 - General Ulcer Measurement Start: 07/05/22 09:48 Freq: Status: Active Protocol: Activity Type Activity Date Activity User E-sign Co-sign Detail Recorded Client Recorded Date Recorded By Document 09/19/21 09:49 AK [id number] 09/19/21 09:53 VA Document 09/26/21 10:48 [facility] [id number] 09/26/21 10:56 BM Document 10/10/21 10:26 MW [id number] 10/10/21 10:50 MW 09/19/21 09/26/21 10/10/21 09:49 10:48 10:26 Wound Center Nurse 1 #7 Left foot 4th toe amp site -Combined with other wound No -Current Size (cm) - Length 2.5 -Current Size (cm) - Width 1.5 -Current Size (cm) - Depth 1.9 -Total Square Cm 3.75 -Date of Last Picture (Recall this 10/10/21 field) -Photo Taken Yes -Epithelialization None Present -Tunneling No -Undermining/Tunneling No -Circular Undermining No -Exudate Amt Medium -Exudate Type Serosanguineous -Wound Margin Distinct, Outline Attached -Granulation Amt Medium (34-66%) -Granulation Quality [place] -Slough/Fibrin Yes -Necrosis Amt Small (1-33%) -Necrotic Tissue Type Adherent Slough -Structure Exposed N/A -Texture (Bernadette-wound Skin Appearance) Assessed, Localized Edema -Moisture (Bernadette-wound Skin Appearance) No Abnormality, Assessed -Color (Bernadette-wound Skin Appearance) No Abnormality, Assessed -Temperature (Bernadette-wound Skin No Abnormality Appearance) (Pt Warm) -Tenderness on Palpation (Bernadette-wound No Skin Appearance) -Ulcer Cleansing Soap and Water -Foul Odor after Cleansing No #6- L MEDIAL FOOT -Combined with other wound No No No -Current Size (cm) - Length 2 3.0 3.0 -Current Size (cm) - Width 1 2.0 3.5 -Current Size (cm) - Depth 0.1 0.1 0.1 -Total Square Cm 2 6.00 10.50 -Date of Last Picture (Recall this 09/26/21 10/10/21 field) -Photo Taken No Yes Yes -Epithelialization None Present None Present -Tunneling No No No -Undermining/Tunneling No No No -Circular Undermining No No No -Change in Wound Grade/Stage No -Exudate Amt None Present None Present None Present -Wound Margin Flat & Intact Distinct, Flat & Intact Outline Attached -Granulation Amt None Present (0 None Present (0 None Present (0 %) %) %) -Granulation Quality N/A N/A -Slough/Fibrin Yes Yes Yes -Necrosis Amt Large (67-100%) Large (67-100%) Large (67-100%) -Necrotic Tissue Type Eschar Eschar Adherent Slough -Structure Exposed N/A N/A -Texture (Bernadette-wound Skin Appearance) No Abnormality, Assessed, Assessed,Callus Assessed Localized Edema ,Localized ,Scarring Edema -Moisture (Bernadette-wound Skin Appearance) No Abnormality, Assessed Assessed,Dry/ Assessed Scaly -Color (Bernadette-wound Skin Appearance) Assessed, Assessed, No Abnormality, Erythema Erythema Assessed -Temperature (Bernadette-wound Skin No Abnormality No Abnormality No Abnormality Appearance) (Pt Warm) (Pt Warm) (Pt Warm) -Tenderness on Palpation (Bernadette-wound No Yes No Skin Appearance) -Ulcer Cleansing Rinsed/ Soap and Water Soap and Water Irrigated with Saline -Foul Odor after Cleansing No No No -Anesthetic Used 4% Lidocaine 4% Lidocaine 4% Lidocaine Solution Solution Solution #5 left dorsal foot -Combined with other wound No No No -Current Size (cm) - Length 4.8 0.2 0 -Current Size (cm) - Width 1.9 0.3 0 -Current Size (cm) - Depth 2.4 0.1 0 -Total Square Cm 9.12 0.06 0 -Date of Last Picture (Recall this 09/26/21 field) -Photo Taken No Yes No -Epithelialization Large 67-100% -Tunneling No No -Undermining/Tunneling No No -Circular Undermining No No -Change in Wound Grade/Stage No -Exudate Amt Large None Present -Exudate Type Yellow/Green -Wound Margin Distinct, Distinct, Outline Outline Attached Attached -Granulation Amt None Present (0 %) -Granulation Quality N/A -Slough/Fibrin Yes -Necrosis Amt Large (67-100%) Small (1-33%) -Necrotic Tissue Type Adherent Slough Eschar -Structure Exposed Tendon -Texture (Bernadette-wound Skin Appearance) No Abnormality, Assessed, Assessed Fluctuance -Moisture (Bernadette-wound Skin Appearance) No Abnormality, Assessed Assessed -Color (Bernadette-wound Skin Appearance) No Abnormality, Assessed Assessed -Temperature (Bernadette-wound Skin No Abnormality No Abnormality Appearance) (Pt Warm) (Pt Warm) -Tenderness on Palpation (Bernadette-wound No No Skin Appearance) -Ulcer Cleansing Soap and Water -Foul Odor after Cleansing No No -Anesthetic Used 4% Lidocaine 4% Lidocaine Solution Solution #4- L PLANTAR FOOT -Combined with other wound No No No -Current Size (cm) - Length 3 3.6 3.5 -Current Size (cm) - Width 3.5 3.0 3.0 -Current Size (cm) - Depth 0.9 0.8 0.8 -Total Square Cm 10.5 10.80 10.50 -Date of Last Picture (Recall this 09/26/21 field) -Photo Taken No Yes No -Epithelialization None Present None Present -Tunneling No No No -Undermining/Tunneling No No No -Circular Undermining No No No -Exudate Amt Large Medium Small -Exudate Type Yellow/Green Serosanguineous Serosanguineous -Wound Margin Distinct, Distinct, Distinct, Outline Outline Outline Attached Attached Attached -Granulation Amt Large (67-100%) None Present (0 Medium (34-66%) %) -Granulation Quality N/A [place] -Slough/Fibrin Yes Yes Yes -Necrosis Amt Large (67-100%) Small (1-33%) Medium (34-66%) -Necrotic Tissue Type Adherent Slough Adherent Slough Adherent Slough -Structure Exposed Tendon Tendon N/A -Texture (Bernadette-wound Skin Appearance) No Abnormality, Assessed Assessed, Assessed Localized Edema ,Scarring -Moisture (Bernadette-wound Skin Appearance) No Abnormality, No Abnormality Assessed,Dry/ Assessed Scaly -Color (Bernadette-wound Skin Appearance) No Abnormality, Assessed, No Abnormality, Assessed Erythema Assessed -Temperature (Bernadette-wound Skin No Abnormality No Abnormality No Abnormality Appearance) (Pt Warm) (Pt Warm) (Pt Warm) -Tenderness on Palpation (Bernadette-wound No Yes Skin Appearance) -Ulcer Cleansing Rinsed/ Soap and Water Soap and Water Irrigated with Saline -Foul Odor after Cleansing No No No -Anesthetic Used 4% Lidocaine 4% Lidocaine 4% Lidocaine Solution Solution Solution #3- L FOOT 3RD TOE AMP SITE (POST OP) -Combined with other wound No No -Current Size (cm) - Length 4.3 0 -Current Size (cm) - Width 1.6 0 -Current Size (cm) - Depth 2.7 0 -Total Square Cm 6.88 0 -Date of Last Picture (Recall this 09/26/21 10/10/21 field) -Photo Taken Yes Yes -Epithelialization None Present -Tunneling No -Undermining/Tunneling No -Circular Undermining No -Exudate Amt Medium -Exudate Type Serosanguineous -Wound Margin Distinct, Outline Attached -Granulation Amt Small (1-33%) -Granulation Quality Red -Slough/Fibrin Yes -Necrosis Amt Large (67-100%) -Necrotic Tissue Type Adherent Slough -Texture (Bernadette-wound Skin Appearance) Assessed, Scarring -Moisture (Bernadette-wound Skin Appearance) Assessed -Color (Bernadette-wound Skin Appearance) Assessed -Temperature (Bernadette-wound Skin No Abnormality Appearance) (Pt Warm) -Tenderness on Palpation (Bernadette-wound No Skin Appearance) -Ulcer Cleansing Soap and Water -Foul Odor after Cleansing No -Anesthetic Used 4% Lidocaine Solution Lower Limb Edema Present Yes Left Calf (cm) 33.0 Left Ankle (cm) 22.5 WC - Nurse 2 - General Ulcer CM Notes Start: 09/19/21 09:48 Freq: Status: Active Protocol: Activity Type Activity Date Activity User E-sign Co-sign Detail Recorded Client Recorded Date Recorded By Document 09/19/21 10:07 [id number] 09/19/21 10:25 MW Document 09/26/21 11:21 [id number] 09/26/21 11:22 09/19/21 09/26/21 10:07 11:21 Wound Center Nurse 2 #2 Left Foot 2,3 rd Web Space -Time 10:24 -Correct Patient Yes -Correct Side, Site, Position Yes -Procedure Performed No -Wound/Ulcer Outcome Not Healed #6- L MEDIAL FOOT -Time 10:24 -Correct Patient Yes No -Correct Side, Site, Position Yes No -Correct Procedure Yes No -Procedure Performed No No -Wound/Ulcer Outcome Not Healed Not Healed #5 left dorsal foot -Time 10:24 -Correct Patient Yes No -Correct Side, Site, Position Yes No -Correct Procedure Yes No -Procedure Performed No No -Wound/Ulcer Outcome Not Healed Not Healed #4- L PLANTAR FOOT -Time 10:24 -Correct Patient Yes No -Correct Side, Site, Position Yes No -Correct Procedure Yes No -Procedure Performed No No -Wound/Ulcer Outcome Not Healed Not Healed #3- L FOOT 3RD TOE AMP SITE (POST OP) -Time 10:24 -Correct Patient Yes No -Correct Side, Site, Position Yes No -Correct Procedure Yes No -Procedure Performed No No -Wound/Ulcer Outcome Not Healed Not Healed Pain Scale: 0-10 Numeric Is Patient Pain Free? Yes Yes WC - Nurse 3 - General Ulcer D/C NN Start: 09/19/21 09:48 Freq: Status: Active Protocol: Activity Type Activity Date Activity User E-sign Co-sign Detail Recorded Client Recorded Date Recorded By Document 09/19/21 10:29 [facility] [id number] 09/19/21 10:31 VA Document 09/26/21 11:24 [facility] [id number] 09/26/21 11:26 [facility] 09/19/21 09/26/21 10:29 11:24 Wound Care Nurse 3 #2 Left Foot 2,3 rd Web Space -Ulcer Cleansing Rinsed/ Irrigated with Saline -Foul Odor after Cleansing No -Negative Pressure Wound Therapy N/A -Other Dressing wet to dry -Primary Dressing Covered/Secured with Dry Gauze & Roll Gauze, Secured with Tape #6- L MEDIAL FOOT -Ulcer Cleansing Rinsed/ Rinsed/ Irrigated with Irrigated with Saline Saline -Foul Odor after Cleansing No No -Negative Pressure Wound Therapy N/A -Primary Dressing Applied Other -Other Dressing betadine BETADINE GAUZE -Primary Dressing Covered/Secured with Dry Gauze & Dry Gauze & Roll Gauze, Roll Gauze, Secured with Secured with Tape Tape -Other Covering DRSG PER MW RN #5 left dorsal foot -Ulcer Cleansing Rinsed/ Irrigated with Saline -Foul Odor after Cleansing No -Primary Dressing Applied Other -Other Dressing BETADINE GAUZE -Primary Dressing Covered/Secured with Dry Gauze & Roll Gauze, Secured with Tape -Other Covering DRSG PER MW RN #4- L PLANTAR FOOT -Ulcer Cleansing Rinsed/ Rinsed/ Irrigated with Irrigated with Saline Saline -Foul Odor after Cleansing No No -Negative Pressure Wound Therapy N/A -Primary Dressing Applied Other -Other Dressing betadine BETADINE GAUZE PER MW RN -Primary Dressing Covered/Secured with Dry Gauze & Dry Gauze & Roll Gauze, Roll Gauze, Secured with Secured with Tape Tape #3- L FOOT 3RD TOE AMP SITE (POST OP) -Ulcer Cleansing Rinsed/ Irrigated with Saline -Foul Odor after Cleansing No -Primary Dressing Applied Other -Other Dressing BETADINE GAUZE PER MW RN -Primary Dressing Covered/Secured with Dry Gauze & Roll Gauze, Secured with Tape Left -Compression Wrap Mian Wrap -Other MIAN TO SECURE Treatment Response Procedure Tolerated Well Pain Scale: 0-10 Numeric Is Patient Pain Free? Yes Yes WC - Visit Discharge Discharge Condition Stable Stable Ambulatory Status Ambulatory Wheelchair Transportation Private Auto Private Auto Accompanied by Medication Reconcilliation completed & Yes provided to patient/care provider Clinical Summary of Care Provided Yes Assessment/Plan Assessment/Plan (1) Peripheral vascular disease, unspecified: CODE(S): I73.9 - Peripheral vascular disease, unspecified (2) Non-pressure chronic ulcer of other part of left foot with fat layer exposed: CODE(S): L97.522 - Non-pressure chronic ulcer of other part of left foot with fat layer exposed PLAN: Patient examined evaluated, all findings reyes with patient in detail. There is improvement of the left fourth and third partial ray resection sites with vessel loop closure closing down the wound. The wound base at the site appears to be granular in nature. Plantar midfoot wound demonstrates a mixed fiber granular appearance but there is healthy bleeding upon debridement. The first metatarsal phalangeal joint is exposed along the medial foot wound the skin edge demonstrates a high healthy granular bleeding border upon debridement. Patient is following with vascular surgery as an outpatient. Patient is following with infectious disease and has him going to infusion center for IV antibiotics. The left first metatarsal phalangeal joint wound and plantar midfoot wounds were debrided down to including level of capsule and tendon of all nonviable tissue without incident. This was performed using 5 mm dermal curette. Hemostasis obtained with light compression. Patient tolerated procedure well. No anes thesia due to neuropathy. Pre and postdebridement measurements document nursing notes. Patient will perform daily cleansing of his foot with dressing changes consisting of Dakin's DSD no compression. Patient will maintain heel weightbearing status in cam walking boot assisted with a walker patient has a walker at home. Patient will follow up in 1 week. Patient is high risk for proximal amputation and understands this.
== END 2021-10-15 23:59 | disposition home or self-care (01) ==
LOC: WC 10:30
PROVIDERS: PCP Student in an Organized Health Care Education/Training Program; Visit Provider Podiatrist
DX: L97.522 Non-pressure chronic ulcer of other part of left foot with fat layer exposed (principal); I73.9 Peripheral vascular disease, unspecified
CPT/HCPCS: 11043; 11046; 99213; G0463

== ENCOUNTER → 2021-10-10 | Outpatient (CLI) | payer OTHER, SELFPAY ==
[2021-10-10 09:15] VITALS: BP 84/62; PULSE 68; RESP 16; TEMP 36.2; O2SAT 98
[2021-10-10 10:00] VITALS: BP 108/69; PULSE 70; RESP 14; TEMP 36.1; O2SAT 99
== END | disposition home or self-care (01) ==
LOC: MEDOUTP 09:11
PROVIDERS: PCP Student in an Organized Health Care Education/Training Program; Referring Provider Internal Medicine Infectious Disease; Visit Provider Internal Medicine Infectious Disease
DX: M86.8X7 Other osteomyelitis, ankle and foot (principal)
CPT/HCPCS: 96365; 96367; J0878; A4216; J3490

== ENCOUNTER 2021-10-11 09:52 | Outpatient (CLI) | payer OTHER, SELFPAY ==
[2021-10-11 10:05] VITALS: BP 108/65; PULSE 65; RESP 14; TEMP 36.2; O2SAT 99; BMI 23.0
[2021-10-11 10:39] VITALS: BP 120/70; PULSE 70; RESP 16; TEMP 35.8; O2SAT 98
== END 2021-10-11 23:59 | disposition home or self-care (01) ==
LOC: MEDOUTP 09:52
PROVIDERS: PCP Student in an Organized Health Care Education/Training Program; Referring Provider Internal Medicine Infectious Disease; Visit Provider Internal Medicine Infectious Disease
DX: M86.8X7 Other osteomyelitis, ankle and foot (principal)
CPT/HCPCS: 96365; 96367; J0878; A4216; J3490

== ENCOUNTER 2021-10-12 09:52 | Outpatient (CLI) | payer OTHER, SELFPAY ==
[2021-10-12 10:04] VITALS: BP 104/62; PULSE 68; RESP 16; TEMP 36.2; O2SAT 98
== END 2021-10-12 23:59 | disposition home or self-care (01) ==
LOC: MEDOUTP 09:52
PROVIDERS: PCP Student in an Organized Health Care Education/Training Program; Referring Provider Internal Medicine Infectious Disease; Visit Provider Internal Medicine Infectious Disease
DX: M86.8X7 Other osteomyelitis, ankle and foot (principal)
CPT/HCPCS: 96365; 96368; J0878; A4216; J3490

== ENCOUNTER 2021-10-13 09:51 | Outpatient (CLI) | payer OTHER, SELFPAY ==
[2021-10-13 10:22] VITALS: BP 96/58; PULSE 67; RESP 16; TEMP 36.4; O2SAT 98
[2021-10-13 10:49] VITALS: BP 99/68; PULSE 70
== END 2021-10-13 23:59 | disposition home or self-care (01) ==
LOC: MEDOUTP 09:51
PROVIDERS: PCP Student in an Organized Health Care Education/Training Program; Referring Provider Internal Medicine Infectious Disease; Visit Provider Internal Medicine Infectious Disease
DX: M86.8X7 Other osteomyelitis, ankle and foot (principal)
CPT/HCPCS: 96365; 96367; J0878; A4216; J3490

== ENCOUNTER 2021-10-14 09:00 | Outpatient (CLI) | payer OTHER, SELFPAY ==
[2021-10-14] MEDS: 0.9% Saline Lock 10 ML Syringe IV (09:19)
[2021-10-14 09:21] VITALS: BP 110/70; PULSE 72; RESP 18; TEMP 36.3; O2SAT 99
== END 2021-10-14 10:04 | disposition home or self-care (01) ==
LOC: MEDOUTP 09:01 → MS3 09:01
PROVIDERS: PCP Student in an Organized Health Care Education/Training Program; Referring Provider Internal Medicine Infectious Disease; Visit Provider Internal Medicine Infectious Disease
DX: M86.8X7 Other osteomyelitis, ankle and foot (principal)
CPT/HCPCS: 96365; 96367; J0878; J7050; A4216; J3490

== ENCOUNTER 2021-10-15 09:04 | Outpatient (CLI) | payer OTHER, SELFPAY ==
[2021-10-15 09:15] VITALS: BP 133/65; PULSE 68; RESP 20; TEMP 36.7; O2SAT 98
[2021-10-15 09:42] VITALS: BMI 23.1
[2021-10-15 09:43] VITALS: BMI 23.1
[2021-10-15] MEDS: 0.9% Saline Lock 10 ML Syringe 20 ML IV (10:14)
== END 2021-10-15 10:15 | disposition home or self-care (01) ==
LOC: MEDOUTP 09:05 → ICU 09:07
PROVIDERS: PCP Student in an Organized Health Care Education/Training Program; Referring Provider Internal Medicine Infectious Disease; Visit Provider Internal Medicine Infectious Disease
DX: M86.8X7 Other osteomyelitis, ankle and foot (principal)
CPT/HCPCS: 96365; 96367; J0878; A4216; J3490

== ENCOUNTER → 2021-10-16 | Outpatient (CLI) | payer OTHER, SELFPAY ==
[2021-10-16 10:38] VITALS: BP 124/73; PULSE 73; RESP 16; TEMP 36.1; O2SAT 98
[2021-10-16 10:48] LABS: Hematocrit 30.9 % (40-54); Hemoglobin 9.4 g/dL (13.0-16.5); Mean Corp Hgb Conc 30.4 g/dL (32-36); Mean Corpuscular Hgb 25.6 pg (27.0-32.0); Mean Corpuscular Volume 84.2 fL (80-94); Mean Platelet Vol. 9.2 fl (6.2-12.0); Platelet Count 361 K/mm3 (150-450); RBC Distribution Width CV 14.8 % (11.6-14.6); RBC Distribution Width SD 45.5 fl (35.1-43.9); Red Blood Count 3.67 M/mm3 (4.6-6.2)
[2021-10-16 11:08] LABS: AST(SGOT) 17 U/L (15-37); Alanine Aminotransfer ALT/SGPT 25 U/L (16-61); Albumin, Serum 2.9 g/dL (3.2-5.0); Alkaline Phosphatase 95 U/L (45-117); Anion Gap 5 (5-15); BUN 31 mg/dL (7-18); BUN/Creat Ratio 26.3 RATIO (10-20); CPK Total, Creatine Kinase 41 U/L (39-308); Calcium,Total 9.3 mg/dL (8.5-10.1); Chloride 104 mmol/L (98-107); Creatinine, Serum 1.18 mg/dL (0.70-1.30); EST Glomerular Filtration Rate 67 mL/min (>60); Est Glom Filt Rate - Afr Amer 81 mL/min (>60); Globulin 4.4 g/dL (2.2-4.2); Glucose 140 mg/dL (74-106); Potassium 4.6 mmol/L (3.5-5.1); Protein, Total 7.3 g/dL (6.4-8.2); Sodium Level 136 mmol/L (136-145)
[2021-10-16 11:13] VITALS: BP 132/75; PULSE 75
== END | disposition home or self-care (01) ==
LOC: MEDOUTP 10:01
PROVIDERS: PCP Student in an Organized Health Care Education/Training Program; Referring Provider Internal Medicine Infectious Disease; Visit Provider Internal Medicine Infectious Disease
DX: M19.079 Primary osteoarthritis, unspecified ankle and foot (principal)
CPT/HCPCS: 96365; 36592; 80048; 80076; 82550; 85027; 96367; J0878; A4216; J3490

== ENCOUNTER 2021-10-17 09:26 | Outpatient (CLI) | payer OTHER, SELFPAY ==
[2021-10-17 09:41] VITALS: BP 98/65; PULSE 82; RESP 14; TEMP 35.6; O2SAT 97; BMI 23.6
[2021-10-17 10:15] VITALS: BP 121/68; PULSE 71; RESP 14; TEMP 35.8; O2SAT 97
== END 2021-10-17 23:59 | disposition home or self-care (01) ==
LOC: MEDOUTP 09:26
PROVIDERS: PCP Student in an Organized Health Care Education/Training Program; Referring Provider Internal Medicine Infectious Disease; Visit Provider Internal Medicine Infectious Disease
DX: M19.079 Primary osteoarthritis, unspecified ankle and foot (principal); E11.621 Type 2 diabetes mellitus with foot ulcer; L97.523 Non-pressure chronic ulcer of other part of left foot with necrosis of muscle; M86.8X7 Other osteomyelitis, ankle and foot; I73.9 Peripheral vascular disease, unspecified
CPT/HCPCS: 96365; 96367; 11042; 11045; J0878; A4216; J3490

== ENCOUNTER → 2021-10-18 | Outpatient (CLI) | payer OTHER, SELFPAY ==
[2021-10-18 10:11] VITALS: BP 107/68; PULSE 69; RESP 12; TEMP 36.1; O2SAT 97; BMI 23.6
[2021-10-18 10:44] VITALS: BP 133/79; PULSE 77; RESP 16; TEMP 35.7; O2SAT 100
== END | disposition home or self-care (01) ==
LOC: MEDOUTP 09:53
PROVIDERS: PCP Student in an Organized Health Care Education/Training Program; Referring Provider Internal Medicine Infectious Disease; Visit Provider Internal Medicine Infectious Disease
DX: M19.079 Primary osteoarthritis, unspecified ankle and foot (principal)
CPT/HCPCS: 96365; J0878; A4216; J3490

== ENCOUNTER → 2021-10-19 | Outpatient (CLI) | payer OTHER, SELFPAY ==
[2021-10-19 10:15] VITALS: BP 88/55; PULSE 69; RESP 12; TEMP 36.1; O2SAT 98; BMI 23.6
[2021-10-19 10:41] VITALS: BP 85/56; PULSE 80
== END | disposition home or self-care (01) ==
LOC: MEDOUTP 09:59
PROVIDERS: PCP Student in an Organized Health Care Education/Training Program; Referring Provider Internal Medicine Infectious Disease; Visit Provider Internal Medicine Infectious Disease
DX: M86.8X7 Other osteomyelitis, ankle and foot (principal)
CPT/HCPCS: 96365; 96367; J0878; A4216; J3490

== ENCOUNTER → 2021-10-20 | Outpatient (CLI) | payer OTHER, SELFPAY ==
[2021-10-20 09:59] VITALS: BP 89/62; PULSE 73; RESP 16; TEMP 35.7; O2SAT 100
== END | disposition home or self-care (01) ==
LOC: MEDOUTP 09:49
PROVIDERS: PCP Student in an Organized Health Care Education/Training Program; Referring Provider Internal Medicine Infectious Disease; Visit Provider Internal Medicine Infectious Disease
DX: M86.8X7 Other osteomyelitis, ankle and foot (principal)
CPT/HCPCS: 96365; 96367; J0878; A4216; J3490

== ENCOUNTER 2021-10-21 08:51 | Outpatient (CLI) | payer OTHER, SELFPAY | END 2021-10-21 10:02 | disposition home or self-care (01) | LOC: MEDOUTP 08:51 → PCU 08:54 | PROVIDERS: PCP Student in an Organized Health Care Education/Training Program; Referring Provider Internal Medicine Infectious Disease; Visit Provider Internal Medicine Infectious Disease | DX: M86.8X7 Other osteomyelitis, ankle and foot (principal) | CPT/HCPCS: 96365; 96367; J0878; J7040; J3490 ==

== ENCOUNTER 2021-10-22 08:47 | Outpatient (CLI) | payer OTHER, SELFPAY | END 2021-10-22 09:48 | disposition home or self-care (01) | LOC: MEDOUTP 08:47 → PCU 08:48 | PROVIDERS: PCP Student in an Organized Health Care Education/Training Program; Referring Provider Internal Medicine Infectious Disease; Visit Provider Internal Medicine Infectious Disease | DX: M86.8X7 Other osteomyelitis, ankle and foot (principal) | CPT/HCPCS: 96365; 96367; J0878; J7050; J3490 ==

== ENCOUNTER → 2021-10-23 | Outpatient (CLI) | payer OTHER, SELFPAY ==
[2021-10-23 10:25] LABS: Hematocrit 30.9 % (40-54); Hemoglobin 9.4 g/dL (13.0-16.5); Mean Corp Hgb Conc 30.4 g/dL (32-36); Mean Corpuscular Hgb 25.7 pg (27.0-32.0); Mean Corpuscular Volume 84.4 fL (80-94); Mean Platelet Vol. 9.1 fl (6.2-12.0); Platelet Count 280 K/mm3 (150-450); RBC Distribution Width SD 46.5 fl (35.1-43.9); Red Blood Count 3.66 M/mm3 (4.6-6.2); White Blood Count 6.2 K/mm3 (4.4-11.0)
[2021-10-23 10:37] VITALS: BP 114/65; PULSE 67; RESP 16; TEMP 35.9; O2SAT 98; BMI 23.0
[2021-10-23 10:48] LABS: Erythrocyte Sedimentation Rate 68 mm/hr (0-20)
[2021-10-23 10:51] LABS: AST(SGOT) 12 U/L (15-37); Alanine Aminotransfer ALT/SGPT 17 U/L (16-61); Albumin, Serum 2.9 g/dL (3.2-5.0); Alkaline Phosphatase 97 U/L (45-117); Anion Gap 5 (5-15); BUN 30 mg/dL (7-18); BUN/Creat Ratio 26.5 RATIO (10-20); CPK Total, Creatine Kinase 38 U/L (39-308); Calcium,Total 9.1 mg/dL (8.5-10.1); Chloride 107 mmol/L (98-107); Creatinine, Serum 1.13 mg/dL (0.70-1.30); EST Glomerular Filtration Rate 71 mL/min (>60); Est Glom Filt Rate - Afr Amer 85 mL/min (>60); Estimated Creatinine Clearance 75.43 ml/min; Globulin 4.4 g/dL (2.2-4.2); Glucose 170 mg/dL (74-106); Potassium 5.1 mmol/L (3.5-5.1); Protein, Total 7.3 g/dL (6.4-8.2); Sodium Level 135 mmol/L (136-145)
[2021-10-23 11:37] VITALS: BP 137/74; PULSE 71
== END | disposition home or self-care (01) ==
LOC: MEDOUTP 09:53
PROVIDERS: PCP Student in an Organized Health Care Education/Training Program; Referring Provider Internal Medicine Infectious Disease; Visit Provider Internal Medicine Infectious Disease
DX: M19.079 Primary osteoarthritis, unspecified ankle and foot (principal); I42.9 Cardiomyopathy, unspecified
CPT/HCPCS: 96365; 36592; 80048; 80076; 82550; 85027; 85652; 96367; J0878; A4216; J3490

== ENCOUNTER 2021-10-24 09:18 | Outpatient (CLI) | payer OTHER, SELFPAY ==
[2021-10-24 09:31] VITALS: BP 117/63; PULSE 73; RESP 12; TEMP 35.9; O2SAT 99; BMI 23.0
[2021-10-24 10:01] VITALS: BP 124/74; PULSE 74
== END 2021-10-24 23:59 | disposition home or self-care (01) ==
LOC: MEDOUTP 09:18
PROVIDERS: PCP Student in an Organized Health Care Education/Training Program; Referring Provider Internal Medicine Infectious Disease; Visit Provider Internal Medicine Infectious Disease
DX: M86.8X7 Other osteomyelitis, ankle and foot (principal); E11.621 Type 2 diabetes mellitus with foot ulcer; L97.523 Non-pressure chronic ulcer of other part of left foot with necrosis of muscle; I73.9 Peripheral vascular disease, unspecified
CPT/HCPCS: 96365; 96367; 11043; 11046; J0878; A4216; J3490

== ENCOUNTER → 2021-10-25 | Outpatient (CLI) | payer OTHER, SELFPAY ==
[2021-10-25 10:04] VITALS: BP 143/75; PULSE 79; RESP 14; TEMP 36.2; O2SAT 100; BMI 23.0
[2021-10-25 10:35] VITALS: BP 134/80; PULSE 71
== END | disposition home or self-care (01) ==
LOC: MEDOUTP 09:52
PROVIDERS: PCP Student in an Organized Health Care Education/Training Program; Referring Provider Internal Medicine Infectious Disease; Visit Provider Internal Medicine Infectious Disease
DX: M86.8X7 Other osteomyelitis, ankle and foot (principal)
CPT/HCPCS: 96365; 96367; J0878; A4216; J3490

== ENCOUNTER → 2021-10-26 | Outpatient (CLI) | payer OTHER, SELFPAY ==
[2021-10-26 10:15] VITALS: BP 92/62; PULSE 79; RESP 16; TEMP 36.4; O2SAT 98; BMI 23.0
[2021-10-26 10:55] VITALS: BP 108/65; PULSE 68; RESP 16; TEMP 36.6; O2SAT 97
== END | disposition home or self-care (01) ==
LOC: MEDOUTP 09:51
PROVIDERS: PCP Student in an Organized Health Care Education/Training Program; Referring Provider Internal Medicine Infectious Disease; Visit Provider Internal Medicine Infectious Disease
DX: M86.8X7 Other osteomyelitis, ankle and foot (principal)
CPT/HCPCS: 96365; 96367; J0878; A4216; J3490

== ENCOUNTER → 2021-10-27 | Outpatient (CLI) | payer OTHER, SELFPAY ==
[2021-10-27 10:28] VITALS: BP 114/79; PULSE 75; RESP 16; TEMP 36.2; O2SAT 97; BMI 23.0
[2021-10-27 10:59] VITALS: BP 110/77; PULSE 72; RESP 16; O2SAT 99
== END | disposition home or self-care (01) ==
LOC: MEDOUTP 09:56
PROVIDERS: PCP Student in an Organized Health Care Education/Training Program; Referring Provider Internal Medicine Infectious Disease; Visit Provider Internal Medicine Infectious Disease
DX: M86.8X7 Other osteomyelitis, ankle and foot (principal)
CPT/HCPCS: 96365; 96367; J0878; A4216; J3490

== ENCOUNTER 2021-10-28 09:12 | Outpatient (CLI) | payer OTHER, SELFPAY ==
[2021-10-28] MEDS: 0.9% Saline Lock 10 ML Syringe IV ×2 (09:00→09:50)
== END 2021-10-28 09:50 | disposition home or self-care (01) ==
LOC: MEDOUTP 09:12 → MS3 09:13
PROVIDERS: PCP Student in an Organized Health Care Education/Training Program; Referring Provider Internal Medicine Infectious Disease; Visit Provider Internal Medicine Infectious Disease
DX: M86.8X7 Other osteomyelitis, ankle and foot (principal)
CPT/HCPCS: 96365; 96367; J0878; J7050; A4216; J3490

== ENCOUNTER 2021-10-29 08:27 | Outpatient (CLI) | payer OTHER, SELFPAY ==
[2021-10-29] MEDS: 0.9% Saline Lock 10 ML Syringe IV ×2 (08:56→09:40)
== END 2021-10-29 09:45 | disposition home or self-care (01) ==
LOC: MEDOUTP 08:27 → MS3 08:27
PROVIDERS: PCP Student in an Organized Health Care Education/Training Program; Referring Provider Internal Medicine Infectious Disease; Visit Provider Internal Medicine Infectious Disease
DX: M86.8X7 Other osteomyelitis, ankle and foot (principal)
CPT/HCPCS: 96365; 96367; J0878; J7050; A4216; J3490

== ENCOUNTER → 2021-10-30 | Outpatient (CLI) | payer OTHER, SELFPAY ==
[2021-10-30 09:59] VITALS: BP 94/66; PULSE 73; RESP 16; TEMP 36.3; O2SAT 97
[2021-10-30 10:28] LABS: Hematocrit 32.7 % (40-54); Hemoglobin 9.8 g/dL (13.0-16.5); Mean Corpuscular Hgb 25.4 pg (27.0-32.0); Mean Corpuscular Volume 84.7 fL (80-94); Mean Platelet Vol. 9.3 fl (6.2-12.0); Platelet Count 301 K/mm3 (150-450); RBC Distribution Width CV 15.5 % (11.6-14.6); RBC Distribution Width SD 47.3 fl (35.1-43.9); Red Blood Count 3.86 M/mm3 (4.6-6.2); White Blood Count 6.6 K/mm3 (4.4-11.0)
[2021-10-30 10:33] LABS: Erythrocyte Sedimentation Rate 54 mm/hr (0-20)
[2021-10-30 10:52] LABS: AST(SGOT) 11 U/L (15-37); Alanine Aminotransfer ALT/SGPT 16 U/L (16-61); Alkaline Phosphatase 102 U/L (45-117); Anion Gap 7 (5-15); BUN 34 mg/dL (7-18); Bilirubin, Direct 0.08 mg/dL (0.00-0.30); CPK Total, Creatine Kinase 41 U/L (39-308); Chloride 104 mmol/L (98-107); Creatinine, Serum 1.26 mg/dL (0.70-1.30); EST Glomerular Filtration Rate 62 mL/min (>60); Est Glom Filt Rate - Afr Amer 75 mL/min (>60); Globulin 4.4 g/dL (2.2-4.2); Glucose 148 mg/dL (74-106); Potassium 4.6 mmol/L (3.5-5.1); Protein, Total 7.4 g/dL (6.4-8.2); Sodium Level 135 mmol/L (136-145)
[2021-10-30 11:08] VITALS: BP 109/74; PULSE 76; RESP 16; TEMP 36.4; O2SAT 97
[2021-10-30 18:24] LABS: Xtra Tube EP Lab EXTRA TUBE
== END | disposition home or self-care (01) ==
LOC: MEDOUTP 09:48
PROVIDERS: PCP Student in an Organized Health Care Education/Training Program; Referring Provider Internal Medicine Infectious Disease; Visit Provider Internal Medicine Infectious Disease
DX: M86.8X7 Other osteomyelitis, ankle and foot (principal)
CPT/HCPCS: 96365; 96367; 36592; 80048; 80076; 82550; 85027; 85652; J0878; A4216; J3490

== ENCOUNTER 2021-10-31 09:53 | Outpatient (CLI) | payer OTHER, SELFPAY ==
[2021-10-31 10:18] VITALS: BP 128/80; PULSE 75; TEMP 36.1; O2SAT 100
[2021-10-31 10:47] VITALS: BP 140/84; PULSE 74; TEMP 36.4; O2SAT 99
== END 2021-10-31 23:59 | disposition home or self-care (01) ==
LOC: MEDOUTP 09:53
PROVIDERS: PCP Student in an Organized Health Care Education/Training Program; Referring Provider Internal Medicine Infectious Disease; Visit Provider Internal Medicine Infectious Disease
DX: M86.8X7 Other osteomyelitis, ankle and foot (principal); E11.621 Type 2 diabetes mellitus with foot ulcer; L97.523 Non-pressure chronic ulcer of other part of left foot with necrosis of muscle; I73.9 Peripheral vascular disease, unspecified
CPT/HCPCS: 96365; 96367; 11042; 11045; J0878; A4216; J3490

== ENCOUNTER → 2021-11-01 | Outpatient (CLI) | payer OTHER, SELFPAY ==
[2021-11-01 10:13] VITALS: BP 121/79; PULSE 70; RESP 16; TEMP 36.1; O2SAT 98
[2021-11-01 10:40] VITALS: BP 128/73; PULSE 79; RESP 16; TEMP 35.9; O2SAT 99
== END | disposition home or self-care (01) ==
LOC: MEDOUTP 09:53
PROVIDERS: PCP Student in an Organized Health Care Education/Training Program; Referring Provider Internal Medicine Infectious Disease; Visit Provider Internal Medicine Infectious Disease
DX: M86.8X7 Other osteomyelitis, ankle and foot (principal)
CPT/HCPCS: 96365; 96367; 96368; J0878; A4216; J3490

== ENCOUNTER → 2021-11-02 | Outpatient (CLI) | payer OTHER, SELFPAY ==
[2021-11-02 10:15] VITALS: BP 105/61; PULSE 73; RESP 16; TEMP 36; O2SAT 98
[2021-11-02 10:47] VITALS: BP 121/70; PULSE 74; RESP 16; TEMP 36.2; O2SAT 98
== END | disposition home or self-care (01) ==
LOC: MEDOUTP 09:57
PROVIDERS: PCP Student in an Organized Health Care Education/Training Program; Referring Provider Internal Medicine Infectious Disease; Visit Provider Internal Medicine Infectious Disease
DX: M86.8X7 Other osteomyelitis, ankle and foot (principal)
CPT/HCPCS: 96365; 96367; 96368; J0878; A4216; J3490

== ENCOUNTER → 2021-11-03 | Outpatient (CLI) | payer OTHER, SELFPAY ==
[2021-11-03 10:01] VITALS: BP 109/62; PULSE 71; RESP 16; TEMP 35.8; O2SAT 97
[2021-11-03 10:46] VITALS: BP 109/62; PULSE 74; RESP 16; TEMP 35.9; O2SAT 98
== END | disposition home or self-care (01) ==
LOC: MEDOUTP 09:47
PROVIDERS: PCP Student in an Organized Health Care Education/Training Program; Referring Provider Internal Medicine Infectious Disease; Visit Provider Internal Medicine Infectious Disease
DX: M86.8X7 Other osteomyelitis, ankle and foot (principal)
CPT/HCPCS: 96365; 96367; 96368; J0878; A4216; J3490

== ENCOUNTER 2021-11-04 09:05 | Outpatient (CLI) | payer OTHER, SELFPAY ==
[2021-11-04 09:15] VITALS: BP 108/71; PULSE 67; RESP 16; TEMP 36; O2SAT 97
[2021-11-04] MEDS: 0.9% Saline Lock 10 ML Syringe IV ×2 (09:20→10:14)
[2021-11-04 10:14] VITALS: BP 145/80; PULSE 72; RESP 18; TEMP 36; O2SAT 100
== END 2021-11-04 10:15 | disposition home or self-care (01) ==
LOC: MEDOUTP 09:05 → ICU 09:07
PROVIDERS: PCP Student in an Organized Health Care Education/Training Program; Referring Provider Internal Medicine Infectious Disease; Visit Provider Internal Medicine Infectious Disease
DX: M86.8X7 Other osteomyelitis, ankle and foot (principal)
CPT/HCPCS: 96365; 96367; J0878; A4216; J3490

== ENCOUNTER 2021-11-05 08:46 | Outpatient (CLI) | payer OTHER, SELFPAY ==
[2021-11-05 09:10] VITALS: BP 111/76; PULSE 100; RESP 18; TEMP 36.4; O2SAT 96
== END 2021-11-05 10:10 | disposition home or self-care (01) ==
LOC: MEDOUTP 08:46 → PCU 08:47
PROVIDERS: PCP Student in an Organized Health Care Education/Training Program; Referring Provider Internal Medicine Infectious Disease; Visit Provider Internal Medicine Infectious Disease
DX: M86.8X7 Other osteomyelitis, ankle and foot (principal)
CPT/HCPCS: 96365; 96367; J0878; J3490

== ENCOUNTER → 2021-11-06 | Outpatient (CLI) | payer OTHER, SELFPAY ==
[2021-11-06 10:18] VITALS: BP 102/62; PULSE 72; RESP 16; TEMP 35.9; O2SAT 96; BMI 23.0
[2021-11-06 10:34] LABS: Erythrocyte Sedimentation Rate 50 mm/hr (0-20)
[2021-11-06 10:36] LABS: Hemoglobin 9.9 g/dL (13.0-16.5); Mean Corp Hgb Conc 30.9 g/dL (32-36); Mean Platelet Vol. 9.3 fl (6.2-12.0); Platelet Count 265 K/mm3 (150-450); RBC Distribution Width CV 15.5 % (11.6-14.6); RBC Distribution Width SD 47.2 fl (35.1-43.9); Red Blood Count 3.81 M/mm3 (4.6-6.2); White Blood Count 5.3 K/mm3 (4.4-11.0)
[2021-11-06 10:57] VITALS: BP 110/70; PULSE 74
[2021-11-06 11:01] LABS: AST(SGOT) 13 U/L (15-37); Alanine Aminotransfer ALT/SGPT 12 U/L (16-61); Alkaline Phosphatase 95 U/L (45-117); Anion Gap 5 (5-15); BUN 23 mg/dL (7-18); BUN/Creat Ratio 22.5 RATIO (10-20); CPK Total, Creatine Kinase 46 U/L (39-308); Chloride 106 mmol/L (98-107); Creatinine, Serum 1.02 mg/dL (0.70-1.30); EST Glomerular Filtration Rate 80 mL/min (>60); Est Glom Filt Rate - Afr Amer 96 mL/min (>60); Estimated Creatinine Clearance 83.57 ml/min; Globulin 4.1 g/dL (2.2-4.2); Glucose 86 mg/dL (74-106); Potassium 4.5 mmol/L (3.5-5.1); Protein, Total 7.1 g/dL (6.4-8.2); Sodium Level 136 mmol/L (136-145)
== END | disposition home or self-care (01) ==
LOC: MEDOUTP 09:55
PROVIDERS: PCP Student in an Organized Health Care Education/Training Program; Referring Provider Internal Medicine Infectious Disease; Visit Provider Internal Medicine Infectious Disease
DX: M86.8X7 Other osteomyelitis, ankle and foot (principal)
CPT/HCPCS: 96365; 96367; 36592; 80048; 80076; 82550; 85027; 85652; 96368; J0878; A4216; J3490

== ENCOUNTER 2021-11-07 09:53 | Outpatient (CLI) | payer OTHER, SELFPAY ==
[2021-11-07 10:05] VITALS: BP 113/76; PULSE 73; RESP 16; TEMP 35.7; O2SAT 100; BMI 23.0
[2021-11-07 10:39] VITALS: BP 114/80; PULSE 80; RESP 16
== END 2021-11-07 23:59 | disposition home or self-care (01) ==
LOC: MEDOUTP 09:53
PROVIDERS: PCP Student in an Organized Health Care Education/Training Program; Referring Provider Internal Medicine Infectious Disease; Visit Provider Internal Medicine Infectious Disease
DX: M86.8X7 Other osteomyelitis, ankle and foot (principal); E11.621 Type 2 diabetes mellitus with foot ulcer; L97.523 Non-pressure chronic ulcer of other part of left foot with necrosis of muscle; I73.9 Peripheral vascular disease, unspecified
CPT/HCPCS: 96365; 96367; 11042; 96368; J0878; A4216; J3490

== ENCOUNTER → 2021-11-08 | Outpatient (CLI) | payer OTHER, SELFPAY ==
[2021-11-08 10:06] VITALS: BP 104/64; PULSE 70; RESP 14; TEMP 35.7; O2SAT 100; BMI 23.0
[2021-11-08 10:44] VITALS: BP 107/76; PULSE 82
== END | disposition home or self-care (01) ==
LOC: MEDOUTP 09:54
PROVIDERS: PCP Student in an Organized Health Care Education/Training Program; Referring Provider Internal Medicine Infectious Disease; Visit Provider Internal Medicine Infectious Disease
DX: M86.8X7 Other osteomyelitis, ankle and foot (principal)
CPT/HCPCS: 96365; 96366; 96368; J0878; A4216; J3490

== ENCOUNTER → 2021-11-09 | Outpatient (CLI) | payer OTHER, SELFPAY ==
[2021-11-09 10:17] VITALS: BP 101/63; PULSE 77; TEMP 35.7; O2SAT 99
[2021-11-09 10:46] VITALS: BP 107/58; PULSE 73; RESP 16; TEMP 35.6; O2SAT 99
== END | disposition home or self-care (01) ==
LOC: MEDOUTP 09:57
PROVIDERS: PCP Student in an Organized Health Care Education/Training Program; Referring Provider Internal Medicine Infectious Disease; Visit Provider Internal Medicine Infectious Disease
DX: M86.8X7 Other osteomyelitis, ankle and foot (principal)
CPT/HCPCS: 96365; 96367; 96368; J0878; A4216; J3490

== ENCOUNTER → 2021-11-10 | Outpatient (CLI) | payer OTHER, SELFPAY ==
[2021-11-10 10:07] VITALS: BP 85/50; PULSE 77; RESP 16; TEMP 36.3; O2SAT 98
[2021-11-10 10:41] VITALS: BP 102/59; PULSE 76; RESP 16; O2SAT 98
== END | disposition home or self-care (01) ==
LOC: MEDOUTP 09:53
PROVIDERS: PCP Student in an Organized Health Care Education/Training Program; Referring Provider Internal Medicine Infectious Disease; Visit Provider Internal Medicine Infectious Disease
DX: M86.8X7 Other osteomyelitis, ankle and foot (principal)
CPT/HCPCS: 96365; 96367; 96368; J0878; A4216; J3490

== ENCOUNTER 2021-11-11 08:35 | Outpatient (CLI) | payer OTHER, SELFPAY | END 2021-11-11 08:52 | disposition home or self-care (01) | LOC: MEDOUTP 08:35 → PCU 08:36 | PROVIDERS: PCP Student in an Organized Health Care Education/Training Program; Referring Provider Internal Medicine Infectious Disease; Visit Provider Internal Medicine Infectious Disease | DX: M86.8X7 Other osteomyelitis, ankle and foot (principal) | CPT/HCPCS: 96365; 96367; J0878; J3490 ==

== ENCOUNTER → 2021-11-13 | Outpatient (CLI) | payer OTHER, SELFPAY ==
[2021-11-13 10:26] VITALS: BP 109/61; PULSE 88; RESP 16; TEMP 36.4; O2SAT 99
[2021-11-13 10:27] LABS: Erythrocyte Sedimentation Rate 55 mm/hr (0-20); Hematocrit 32.3 % (40-54); Hemoglobin 10.1 g/dL (13.0-16.5); Mean Corp Hgb Conc 31.3 g/dL (32-36); Mean Corpuscular Volume 83.2 fL (80-94); Mean Platelet Vol. 9.8 fl (6.2-12.0); Platelet Count 271 K/mm3 (150-450); RBC Distribution Width CV 15.4 % (11.6-14.6); RBC Distribution Width SD 46.7 fl (35.1-43.9); Red Blood Count 3.88 M/mm3 (4.6-6.2); White Blood Count 5.2 K/mm3 (4.4-11.0)
[2021-11-13 10:41] LABS: Anion Gap 7 (5-15); BUN 34 mg/dL (7-18); BUN/Creat Ratio 30.4 RATIO (10-20); CPK Total, Creatine Kinase 36 U/L (39-308); Calcium,Total 9.5 mg/dL (8.5-10.1); Chloride 105 mmol/L (98-107); Creatinine, Serum 1.12 mg/dL (0.70-1.30); EST Glomerular Filtration Rate 71 mL/min (>60); Est Glom Filt Rate - Afr Amer 86 mL/min (>60); Glucose 163 mg/dL (74-106); Potassium 4.8 mmol/L (3.5-5.1); Sodium Level 136 mmol/L (136-145)
[2021-11-13 10:58] VITALS: BP 103/67; PULSE 88; RESP 16; O2SAT 99
== END | disposition home or self-care (01) ==
LOC: MEDOUTP 09:55
PROVIDERS: PCP Student in an Organized Health Care Education/Training Program; Referring Provider Internal Medicine Infectious Disease; Visit Provider Internal Medicine Infectious Disease
DX: M86.8X7 Other osteomyelitis, ankle and foot (principal)
CPT/HCPCS: 96365; 96367; 80048; 82550; 85027; 85652; 96368; J0878; A4216; J3490

== ENCOUNTER → 2021-11-14 | Outpatient (CLI) | payer OTHER, SELFPAY ==
[2021-11-14 10:15] VITALS: BP 105/63; PULSE 77; RESP 14; TEMP 36.1; O2SAT 97; BMI 23.0
[2021-11-14 10:42] VITALS: BP 96/68; PULSE 88; RESP 14; TEMP 36.6; O2SAT 97
== END | disposition home or self-care (01) ==
LOC: MEDOUTP 09:58
PROVIDERS: PCP Student in an Organized Health Care Education/Training Program; Referring Provider Internal Medicine Infectious Disease; Visit Provider Internal Medicine Infectious Disease
DX: M86.8X7 Other osteomyelitis, ankle and foot (principal)
CPT/HCPCS: 96365; 96367; 96368; J0878; A4216; J3490

== ENCOUNTER 2021-11-15 11:15 | Outpatient (RCR) | payer OTHER, SELFPAY ==
[2021-10-16 00:27] VITALS: BP 115/70; PULSE 69; RESP 18; TEMP 36.1; BMI 23.8
[2021-10-17 10:18] VITALS: BP 125/78; PULSE 73; RESP 16; TEMP 35.9; BMI 23.8
--- NOTE | 2021-10-17 11:08 | PCM.WC.PN ---
History of Present Illness Date of Service: 10/17/21 Chief Complaint: Left 3rd toe redness History of Wound: This 60-year-old male seen in the wound care center for chronic left foot ulceration secondary to peripheral arterial disease. Patient recently underwent quadruple bypass surgery successfully at [facility]. Patient has stent placed in popliteal artery due to popliteal occlusion and left lower extremity on the hospital 2 week prior. Subsequently the next day patient had a wound debridement with amputation of the fourth ray left open with vessel loop closure to the dorsal midfoot and wet-to-dry dressings to the plantar midfoot and medial first metatarsophalangeal joints. At this time he denies any constitutional symptoms chest pain calf pain or shortness of breath. Patient has been ambulating limited to his house with a cam boot limited to his heel. Patient receiving 6 weeks IV antibiotics at infusion center. No other complaints. Objective Data Objective Data Vital Signs: Vital Signs Temp Pulse Resp BP O2 Del Method 96.6 F L 73 16 125/78 H Room Air 10/17/21 10:18 10/17/21 10:18 10/17/21 10:18 10/17/21 10:18 10/17/21 10:18 Oxygen Delivery Method Room Air Weight: 77.564 kg Body Mass Index (BMI) 23.8 Physical Exam Narrative Improve vascularity left lower extremity. Dermatologic: Partial third and fourth ray resection sites demonstrate a reduced With vessel loop closure intact. Wound demonstrates granular nature. Plantar midfoot wound demonstrates fibrogranular base pre and postdebridement. Medial first metatarsal phalangeal joint wound is down to level of capsule there is a bleeding granular wound edge but the base of the wound is nonviable at this time. Musculoskeletal: Partial amputation to left third and fourth ray. no wound forming deformity noted to bilateral lower extremity. Muscular strength 5 out of 5 to bilateral lower extremity compartments No pain with calf squeeze bilateral lower extremities. Debridement Note Debridement Note Post-Debridement Measurements and Additional Note: Post-Debridement Measurements/Treatment WC - Nurse 1 - General Ulcer Assessment Start: 10/17/21 10:18 Freq: Status: Active Protocol: ROYCE.LOWEXT Activity Type Activity Date Activity User E-sign Co-sign Detail Recorded Client Recorded Date Recorded By Document 10/17/21 10:18 [facility] [id number] 10/17/21 10:26 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 ) Arrival Mode Wheelchair Transfer Assistance None Accompanied by Patient Identification Verified (Name & Yes ) Patient Requires Transmission-Based No Precautions Height and Weight Body Mass Index (BMI) 23.8 BMI Classification Normal Vital Signs Temperature (97.8 F-99.1 F) 96.6 F L Temperature Source Temporal Pulse Rate (60-100) 73 Pulse Location Monitor Respiratory Rate (12-18) 16 Respiratory rate source Observation Oxygen Delivery Method Room Air Blood Pressure (90/60-120/80) 125/78 H Blood Pressure Mean (mm Hg) 93 Source Monitor Position Sitting Blood Pressure Location Left Arm History Since Last Visit- (Skip if this is Patient's initial visit) Have you changed medications since your No last visit? Any new allergies or adverse reactions No Had a fall/change in ADL's that may No increase risk of falls Signs or symptoms of abuse and/or No neglect since last visit Have you been in the hospital since your No last visit? Has dressing in place as prescribed Yes Has compression in place as prescribed N/A Has offloadiing in place as prescribed Yes Experienced any changes in pain level or No management Pain Scale: 0-10 Numeric Is Patient Pain Free? Yes - Nurse 1 - General Ulcer Measurement Start: 10/17/21 10:18 Freq: Status: Active Protocol: Activity Type Activity Date Activity User E-sign Co-sign Detail Recorded Client Recorded Date Recorded By Document 10/17/21 10:18 [facility] [id number] 10/17/21 10:26 [facility] 10/17/21 10:18 Wound Center Nurse 1 #7 Left foot 4th toe amp site -Combined with other wound No -Current Size (cm) - Length 11.5 -Current Size (cm) - Width 1.6 -Current Size (cm) - Depth 1.3 -Total Square Cm 18.40 -Photo Taken No -Epithelialization None Present -Tunneling No -Undermining/Tunneling No -Circular Undermining No -Exudate Amt Medium -Exudate Type Serosanguineous -Wound Margin Distinct, Outline Attached -Granulation Amt Large (67-100%) -Granulation Quality [place] -Slough/Fibrin Yes -Necrosis Amt Small (1-33%) -Necrotic Tissue Type Adherent Slough -Texture (Bernadette-wound Skin Appearance) Assessed, Scarring -Moisture (Bernadette-wound Skin Appearance) Assessed -Color (Bernadette-wound Skin Appearance) Assessed -Temperature (Bernadette-wound Skin No Abnormality Appearance) (Pt Warm) -Tenderness on Palpation (Bernadette-wound No Skin Appearance) -Ulcer Cleansing Rinsed/ Irrigated with Saline -Foul Odor after Cleansing No -Anesthetic Used 4% Lidocaine Solution -Wound Comment(s) cande, red sutures in place #6- L MEDIAL FOOT -Combined with other wound No -Current Size (cm) - Length 3.5 -Current Size (cm) - Width 3.2 -Current Size (cm) - Depth 0.2 -Total Square Cm 11.20 -Photo Taken No -Epithelialization None Present -Tunneling No -Undermining/Tunneling No -Circular Undermining No -Exudate Amt None Present -Wound Margin Distinct, Outline Attached -Granulation Amt None Present (0 %) -Slough/Fibrin Yes -Necrosis Amt Large (67-100%) -Necrotic Tissue Type Adherent Slough -Structure Exposed Bone -Texture (Bernadette-wound Skin Appearance) Assessed, Scarring -Moisture (Bernadette-wound Skin Appearance) Assessed -Color (Bernadette-wound Skin Appearance) Assessed -Temperature (Bernadette-wound Skin No Abnormality Appearance) (Pt Warm) -Tenderness on Palpation (Bernadette-wound No Skin Appearance) -Ulcer Cleansing Rinsed/ Irrigated with Saline -Foul Odor after Cleansing No -Anesthetic Used 4% Lidocaine Solution #4- L PLANTAR FOOT -Combined with other wound No -Current Size (cm) - Length 3.4 -Current Size (cm) - Width 3.4 -Current Size (cm) - Depth 0.9 -Total Square Cm 11.56 -Photo Taken No -Epithelialization Small 1-33% -Tunneling No -Undermining/Tunneling Yes -Undermining/Tunneling Starts (O'clock 11 ) -Undermining/Tunneling Ends (O'clock) 12 -Maximum Distance (cm) 1 -Circular Undermining No -Exudate Amt Large -Exudate Type Serosanguineous -Wound Margin Distinct, Outline Attached -Granulation Amt Large (67-100%) -Granulation Quality Red -Slough/Fibrin No -Necrosis Amt None Present (0 %) -Texture (Bernadette-wound Skin Appearance) Assessed, Scarring -Moisture (Bernadette-wound Skin Appearance) Assessed,Dry/ Scaly -Color (Bernadette-wound Skin Appearance) Assessed -Temperature (Bernadette-wound Skin No Abnormality Appearance) (Pt Warm) -Tenderness on Palpation (Bernadette-wound No Skin Appearance) -Ulcer Cleansing Rinsed/ Irrigated with Saline -Foul Odor after Cleansing No -Anesthetic Used 4% Lidocaine Solution WC - Nurse 2 - General Ulcer CM Notes Start: 10/17/21 10:18 Freq: Status: Active Protocol: Activity Type Activity Date Activity User E-sign Co-sign Detail Recorded Client Recorded Date Recorded By Document 10/17/21 10:35 ORESTES [id number] 10/17/21 10:41 ORESTES 10/17/21 10:35 Wound Center Nurse 2 #7 Left foot 4th toe amp site -Time 10:38 -Correct Patient Yes -Correct Side, Site, Position Yes -Correct Procedure Yes -Procedure Performed Yes -Type of Procedure Debridement -Clinical Debridement Subcutaneous -Tissue Removed Subcutaneous -Post Debridement (cm) - Length 11.6 -Post Debridement (cm) - Width 1.6 -Post Debridement (cm) - Depth 1.3 -Total Square (Post) (cm) 18.56 -Area of Debridement (cm) - Length 11.6 -Area of Debridement (cm) - Width 1.6 -Total Square (Area) (cm) 18.56 -Tunneling No -Undermining/Tunneling No -Circular Undermining No -Wound/Ulcer Outcome Not Healed -Ulcer Cleansing Rinsed/ Irrigated with Saline -Foul Odor after Cleansing No -Bioengineered Tissue No -Bleeding Controlled with Pressure -Treatment Response Procedure Tolerated Well -Offloading Yes -Type of Offloading Surgical Shoe -Assistive Device(s) Wheelchair -Debridement - Subq, 1st 20sq cm No #6- L MEDIAL FOOT -Time 10:39 -Correct Patient Yes -Correct Side, Site, Position Yes -Correct Procedure Yes -Procedure Performed Yes -Type of Procedure Debridement -Clinical Debridement Subcutaneous -Tissue Removed Subcutaneous -Post Debridement (cm) - Length 3.5 -Post Debridement (cm) - Width 3.3 -Post Debridement (cm) - Depth 0.2 -Total Square (Post) (cm) 11.55 -Area of Debridement (cm) - Length 3.5 -Area of Debridement (cm) - Width 3.3 -Total Square (Area) (cm) 11.55 -Tunneling No -Undermining/Tunneling No -Circular Undermining No -Wound/Ulcer Outcome Not Healed -Ulcer Cleansing Rinsed/ Irrigated with Saline -Foul Odor after Cleansing No -Bioengineered Tissue No -Bleeding Controlled with Pressure -Treatment Response Procedure Tolerated Well -Offloading Yes -Type of Offloading Surgical Shoe -Debridement - Subq, 1st 20sq cm No #4- L PLANTAR FOOT -Time 10:40 -Correct Patient Yes -Correct Side, Site, Position Yes -Correct Procedure Yes -Procedure Performed Yes -Type of Procedure Debridement -Clinical Debridement Subcutaneous -Tissue Removed Subcutaneous -Post Debridement (cm) - Length 3.5 -Post Debridement (cm) - Width 3.5 -Post Debridement (cm) - Depth 0.9 -Total Square (Post) (cm) 12.25 -Area of Debridement (cm) - Length 3.5 -Area of Debridement (cm) - Width 3.5 -Total Square (Area) (cm) 12.25 -Tunneling No -Undermining/Tunneling No -Circular Undermining No -Wound/Ulcer Outcome Not Healed -Ulcer Cleansing Rinsed/ Irrigated with Saline -Foul Odor after Cleansing No -Bioengineered Tissue No -Bleeding Controlled with Pressure -Treatment Response Procedure Tolerated Well -Offloading Yes -Type of Offloading Surgical Shoe -Debridement - Subq, 1st 20sq cm Yes -Debridement, SubQ, ea addt'l 20sq cm 2 or part thereof Pain Scale: 0-10 Numeric Is Patient Pain Free? Yes WC - Nurse 3 - General Ulcer D/C NN Start: 10/17/21 10:18 Freq: Status: Active Protocol: Activity Type Activity Date Activity User E-sign Co-sign Detail Recorded Client Recorded Date Recorded By Document 10/17/21 10:50 [facility] [id number] 10/17/21 10:51 [facility] 10/17/21 10:50 Wound Care Nurse 3 #7 Left foot 4th toe amp site -Ulcer Cleansing Rinsed/ Irrigated with Saline -Foul Odor after Cleansing No -Primary Dressing Applied Other -Other Dressing moist to dry -Primary Dressing Covered/Secured with Dry Gauze & Roll Gauze, Secured with Tape #6- L MEDIAL FOOT -Ulcer Cleansing Rinsed/ Irrigated with Saline -Foul Odor after Cleansing No -Primary Dressing Applied Other -Other Dressing moist to dry -Primary Dressing Covered/Secured with Dry Gauze & Roll Gauze, Secured with Tape #4- L PLANTAR FOOT -Ulcer Cleansing Rinsed/ Irrigated with Saline -Foul Odor after Cleansing No -Other Dressing moist to dry -Primary Dressing Covered/Secured with Dry Gauze & Roll Gauze, Other -Other Covering abd Left -Compression Wrap Mian Wrap -Other mian to secure Treatment Response Procedure Tolerated Well Pain Scale: 0-10 Numeric Is Patient Pain Free? Yes WC - Visit Discharge Discharge Condition Stable Ambulatory Status Wheelchair Transportation Private Auto Accompanied by Assessment/Plan Assessment/Plan (1) Peripheral vascular disease, unspecified: CODE(S): I73.9 - Peripheral vascular disease, unspecified (2) Non-pressure chronic ulcer of other part of left foot with fat layer exposed: CODE(S): L97.522 - Non-pressure chronic ulcer of other part of left foot with fat layer exposed PLAN: Patient examined evaluated, all findings reyes with patient in detail. There is improvement of the left fourth and third partial ray resection sites with vessel loop closure closing down the wound. The wound base at the site appears to be granular in nature. Plantar midfoot wound demonstrates a mixed fiber granular appearance but there is healthy bleeding upon debridement. The first metatarsal phalangeal joint is exposed along the medial foot wound the skin edge demonstrates a high healthy granular bleeding border upon debridement. Patient is following with vascular surgery as an outpatient. Patient is following with infectious disease and has him going to infusion center for IV antibiotics. The left first metatarsal phalangeal joint wound and plantar midfoot wounds were debrided down to including level of capsule and tendon of all nonviable tissue without incident. This was performed using 5 mm dermal curette. Hemostasis obtained with light compression. Patient tolerated procedure well. No anesthesia due to neuropathy. Pre and postdebridement measurements document nursing notes. Patient will perform daily cleansing of his foot with dressing changes consisting of Dakin's DSD no compression. Patient will maintain heel weightbearing status in cam walking boot assisted with a walker patient has a walker at home. Patient will follow up in 1 week. Patient is high risk for proximal amputation and understands this.
[2021-10-24 10:45] VITALS: BP 113/78; PULSE 78; RESP 18; TEMP 36.3; BMI 23.8
--- NOTE | 2021-10-24 11:28 | PN.PCM_ITS ---
History of Present Illness Date of Service: 10/24/21 Chief Complaint: Left 3rd toe redness History of Wound: This 60-year-old male seen in the wound care center for chronic left foot ulceration secondary to peripheral arterial disease. Patient recently underwent quadruple bypass surgery successfully at [facility]. Patient has stent placed in popliteal artery due to popliteal occlusion and left lower extremity on the hospital 4 week prior. Subsequently the next day patient had a wound debridement with amputation of the fourth ray left open with vessel loop closure to the dorsal midfoot and wet-to-dry dressings to the plantar midfoot and medial first metatarsophalangeal joints. At this time he denies any constitutional symptoms chest pain calf pain or shortness of breath. Patient has been ambulating limited to his house with a cam boot limited to his heel. Patient receiving 6 weeks IV antibiotics at infusion center. No other complaints. Objective Data Objective Data Vital Signs: Vital Signs Temp Pulse Resp BP O2 Del Method 97.3 F L 78 18 113/78 Room Air 10/24/21 10:45 10/24/21 10:45 10/24/21 10:45 10/24/21 10:45 10/24/21 10:45 Oxygen Delivery Method Room Air Weight: 77.564 kg Body Mass Index (BMI) 23.8 Physical Exam Narrative Improve vascularity left lower extremity. Dermatologic: Partial third and fourth ray resection sites demonstrate a reduced With vessel loop closure intact. Wound demonstrates granular nature. Plantar midfoot wound demonstrates fibrogranular base pre and postdebridement. Medial first metatarsal phalangeal joint wound is down to level of capsule there is a bleeding granular wound edge but the base of the wound is nonviable at this time. Musculoskeletal: Partial amputation to left third and fourth ray. no wound forming deformity noted to bilateral lower extremity. Muscular strength 5 out of 5 to bilateral lower extremity compartments No pain with calf squeeze bilateral lower extremities. Debridement Note Debridement Note Post-Debridement Measurements and Additional Note: Post-Debridement Measurements/Treatment - Nurse 1 - General Ulcer Assessment Start: 10/17/21 10:18 Freq: Status: Active Protocol: ROYCE.LOWEXT Activity Type Activity Date Activity User E-sign Co-sign Detail Recorded Client Recorded Date Recorded By Document 10/17/21 10:18 [facility] [id number] 10/17/21 10:26 [facility] Document 10/24/21 10:45 MW Desktop 10/24/21 10:57 MW 10/17/21 10/24/21 10:18 10:45 - Today's Visit Information Type of service Follow-up Visit Follow-up Visit (Physician/VP DIRECTOR OF FINANCE (Physician/VP DIRECTOR OF FINANCE ) ) Arrival Mode Wheelchair Wheelchair Transfer Assistance None None Accompanied by self Patient Identification Verified (Name & Yes Yes ) Patient Requires Transmission-Based No No Precautions Safety Precautions NA Height and Weight Body Mass Index (BMI) 23.8 23.8 BMI Classification Normal Normal Vital Signs Temperature (97.8 F-99.1 F) 96.6 F L 97.3 F L Temperature Source Temporal Temporal Pulse Rate (60-100) 73 78 Pulse Location Monitor Monitor Respiratory Rate (12-18) 16 18 Respiratory rate source Observation Observation Oxygen Delivery Method Room Air Room Air Blood Pressure (90/60-120/80) 125/78 H 113/78 Blood Pressure Mean (mm Hg) 93 89 Source Monitor Monitor Position Sitting Sitting Blood Pressure Location Left Arm Left Arm History Since Last Visit- (Skip if this is Patient's initial visit) Have you changed medications since your No No last visit? Any new allergies or adverse reactions No No Had a fall/change in ADL's that may No No increase risk of falls Signs or symptoms of abuse and/or No No neglect since last visit Have you been in the hospital since your No No last visit? Has dressing in place as prescribed Yes Yes Has compression in place as prescribed N/A N/A Has offloadiing in place as prescribed Yes Yes Experienced any changes in pain level or No No management Left Footwear Surgical Shoe with pressure relief insole Right Footwear Regular Shoe Pain Scale: 0-10 Numeric Is Patient Pain Free? Yes Yes - Nurse 1 - General Ulcer Measurement Start: 10/17/21 10:18 Freq: Status: Active Protocol: Activity Type Activity Date Activity User E-sign Co-sign Detail Recorded Client Recorded Date Recorded By Document 10/17/21 10:18 [facility] [id number] 10/17/21 10:26 [facility] Document 10/24/21 10:45 MW Desktop 10/24/21 10:57 MW 10/17/21 10/24/21 10:18 10:45 Wound Center Nurse 1 #7 Left foot 4th toe amp site -Combined with other wound No No -Current Size (cm) - Length 11.5 2.1 -Current Size (cm) - Width 1.6 1.2 -Current Size (cm) - Depth 1.3 0.8 -Total Square Cm 18.40 2.52 -Photo Taken No No -Epithelialization None Present None Present -Tunneling No No -Undermining/Tunneling No No -Circular Undermining No No -Exudate Amt Medium Medium -Exudate Type Serosanguineous Serosanguineous -Wound Margin Distinct, Distinct, Outline Outline Attached Attached -Granulation Amt Large (67-100%) Small (1-33%) -Granulation Quality [place] -Slough/Fibrin Yes Yes -Necrosis Amt Small (1-33%) Large (67-100%) -Necrotic Tissue Type Adherent Slough Adherent Slough -Structure Exposed N/A -Texture (Bernadette-wound Skin Appearance) Assessed, Assessed, Scarring Localized Edema ,Scarring -Moisture (Bernadette-wound Skin Appearance) Assessed Assessed,Dry/ Scaly -Color (Bernadette-wound Skin Appearance) Assessed Assessed -Temperature (Bernadette-wound Skin No Abnormality No Abnormality Appearance) (Pt Warm) (Pt Warm) -Tenderness on Palpation (Bernadette-wound No No Skin Appearance) -Ulcer Cleansing Rinsed/ Soap and Water Irrigated with Saline -Foul Odor after Cleansing No No -Anesthetic Used 4% Lidocaine 4% Lidocaine Solution Solution -Wound Comment(s) cande, red sutures in place #6- L MEDIAL FOOT -Combined with other wound No No -Current Size (cm) - Length 3.5 4.0 -Current Size (cm) - Width 3.2 2.9 -Current Size (cm) - Depth 0.2 0.3 -Total Square Cm 11.20 11.60 -Photo Taken No No -Epithelialization None Present None Present -Tunneling No No -Undermining/Tunneling No No -Circular Undermining No No -Exudate Amt None Present Small -Exudate Type Serosanguineous -Wound Margin Distinct, Distinct, Outline Outline Attached Attached -Granulation Amt None Present (0 None Present (0 %) %) -Granulation Quality N/A -Slough/Fibrin Yes Yes -Necrosis Amt Large (67-100%) Large (67-100%) -Necrotic Tissue Type Adherent Slough Adherent Slough -Structure Exposed Bone N/A -Texture (Bernadette-wound Skin Appearance) Assessed, Assessed,Callus Scarring -Moisture (Bernadette-wound Skin Appearance) Assessed Assessed,Dry/ Scaly -Color (Bernadette-wound Skin Appearance) Assessed Assessed -Temperature (Bernadette-wound Skin No Abnormality No Abnormality Appearance) (Pt Warm) (Pt Warm) -Tenderness on Palpation (Bernadette-wound No No Skin Appearance) -Ulcer Cleansing Rinsed/ Soap and Water Irrigated with Saline -Foul Odor after Cleansing No No -Anesthetic Used 4% Lidocaine 4% Lidocaine Solution Solution #4- L PLANTAR FOOT -Combined with other wound No No -Current Size (cm) - Length 3.4 3.3 -Current Size (cm) - Width 3.4 2.6 -Current Size (cm) - Depth 0.9 0.7 -Total Square Cm 11.56 8.58 -Photo Taken No No -Epithelialization Small 1-33% None Present -Tunneling No No -Undermining/Tunneling Yes No -Undermining/Tunneling Starts (O'clock 11 ) -Undermining/Tunneling Ends (O'clock) 12 -Maximum Distance (cm) 1 -Circular Undermining No No -Exudate Amt Large Medium -Exudate Type Serosanguineous Serosanguineous -Wound Margin Distinct, Distinct, Outline Outline Attached Attached -Granulation Amt Large (67-100%) Large (67-100%) -Granulation Quality Red Red -Slough/Fibrin No Yes -Necrosis Amt None Present (0 Small (1-33%) %) -Necrotic Tissue Type Adherent Slough -Structure Exposed N/A -Texture (Bernadette-wound Skin Appearance) Assessed, Assessed, Scarring Localized Edema ,Scarring -Moisture (Bernadette-wound Skin Appearance) Assessed,Dry/ Assessed,Dry/ Scaly Scaly -Color (Bernadette-wound Skin Appearance) Assessed Assessed -Temperature (Bernadette-wound Skin No Abnormality No Abnormality Appearance) (Pt Warm) (Pt Warm) -Tenderness on Palpation (Bernadette-wound No No Skin Appearance) -Ulcer Cleansing Rinsed/ Soap and Water Irrigated with Saline -Foul Odor after Cleansing No No -Anesthetic Used 4% Lidocaine 4% Lidocaine Solution Solution WC - Nurse 2 - General Ulcer CM Notes Start: 10/17/21 10:18 Freq: Status: Active Protocol: Activity Type Activity Date Activity User E-sign Co-sign Detail Recorded Client Recorded Date Recorded By Document 10/17/21 10:35 ORESTES [id number] 10/17/21 10:41 ORESTES 10/17/21 10:35 Wound Center Nurse 2 #7 Left foot 4th toe amp site -Time 10:38 -Correct Patient Yes -Correct Side, Site, Position Yes -Correct Procedure Yes -Procedure Performed Yes -Type of Procedure Debridement -Clinical Debridement Subcutaneous -Tissue Removed Subcutaneous -Post Debridement (cm) - Length 11.6 -Post Debridement (cm) - Width 1.6 -Post Debridement (cm) - Depth 1.3 -Total Square (Post) (cm) 18.56 -Area of Debridement (cm) - Length 11.6 -Area of Debridement (cm) - Width 1.6 -Total Square (Area) (cm) 18.56 -Tunneling No -Undermining/Tunneling No -Circular Undermining No -Wound/Ulcer Outcome Not Healed -Ulcer Cleansing Rinsed/ Irrigated with Saline -Foul Odor after Cleansing No -Bioengineered Tissue No -Bleeding Controlled with Pressure -Treatment Response Procedure Tolerated Well -Offloading Yes -Type of Offloading Surgical Shoe -Assistive Device(s) Wheelchair -Debridement - Subq, 1st 20sq cm No #6- L MEDIAL FOOT -Time 10:39 -Correct Patient Yes -Correct Side, Site, Position Yes -Correct Procedure Yes -Procedure Performed Yes -Type of Procedure Debridement -Clinical Debridement Subcutaneous -Tissue Removed Subcutaneous -Post Debridement (cm) - Length 3.5 -Post Debridement (cm) - Width 3.3 -Post Debridement (cm) - Depth 0.2 -Total Square (Post) (cm) 11.55 -Area of Debridement (cm) - Length 3.5 -Area of Debridement (cm) - Width 3.3 -Total Square (Area) (cm) 11.55 -Tunneling No -Undermining/Tunneling No -Circular Undermining No -Wound/Ulcer Outcome Not Healed -Ulcer Cleansing Rinsed/ Irrigated with Saline -Foul Odor after Cleansing No -Bioengineered Tissue No -Bleeding Controlled with Pressure -Treatment Response Procedure Tolerated Well -Offloading Yes -Type of Offloading Surgical Shoe -Debridement - Subq, 1st 20sq cm No #4- L PLANTAR FOOT -Time 10:40 -Correct Patient Yes -Correct Side, Site, Position Yes -Correct Procedure Yes -Procedure Performed Yes -Type of Procedure Debridement -Clinical Debridement Subcutaneous -Tissue Removed Subcutaneous -Post Debridement (cm) - Length 3.5 -Post Debridement (cm) - Width 3.5 -Post Debridement (cm) - Depth 0.9 -Total Square (Post) (cm) 12.25 -Area of Debridement (cm) - Length 3.5 -Area of Debridement (cm) - Width 3.5 -Total Square (Area) (cm) 12.25 -Tunneling No -Undermining/Tunneling No -Circular Undermining No -Wound/Ulcer Outcome Not Healed -Ulcer Cleansing Rinsed/ Irrigated with Saline -Foul Odor after Cleansing No -Bioengineered Tissue No -Bleeding Controlled with Pressure -Treatment Response Procedure Tolerated Well -Offloading Yes -Type of Offloading Surgical Shoe -Debridement - Subq, 1st 20sq cm Yes -Debridement, SubQ, ea addt'l 20sq cm 2 or part thereof Pain Scale: 0-10 Numeric Is Patient Pain Free? Yes WC - Nurse 3 - General Ulcer D/C NN Start: 10/17/21 10:18 Freq: Status: Active Protocol: Activity Type Activity Date Activity User E-sign Co-sign Detail Recorded Client Recorded Date Recorded By Document 10/17/21 10:50 [facility] [id number] 10/17/21 10:51 [facility] 10/17/21 10:50 Wound Care Nurse 3 #7 Left foot 4th toe amp site -Ulcer Cleansing Rinsed/ Irrigated with Saline -Foul Odor after Cleansing No -Primary Dressing Applied Other -Other Dressing moist to dry -Primary Dressing Covered/Secured with Dry Gauze & Roll Gauze, Secured with Tape #6- L MEDIAL FOOT -Ulcer Cleansing Rinsed/ Irrigated with Saline -Foul Odor after Cleansing No -Primary Dressing Applied Other -Other Dressing moist to dry -Primary Dressing Covered/Secured with Dry Gauze & Roll Gauze, Secured with Tape #4- L PLANTAR FOOT -Ulcer Cleansing Rinsed/ Irrigated with Saline -Foul Odor after Cleansing No -Other Dressing moist to dry -Primary Dressing Covered/Secured with Dry Gauze & Roll Gauze, Other -Other Covering abd Left -Compression Wrap Mian Wrap -Other mian to secure Treatment Response Procedure Tolerated Well Pain Scale: 0-10 Numeric Is Patient Pain Free? Yes WC - Visit Discharge Discharge Condition Stable Ambulatory Status Wheelchair Transportation Private Auto Accompanied by Assessment/Plan Assessment/Plan (1) Peripheral vascular disease, unspecified: CODE(S): I73.9 - Peripheral vascular disease, unspecified (2) Non-pressure chronic ulcer of other part of left foot with necrosis of muscle: CODE(S): L97.523 - Non-pressure chronic ulcer of other part of left foot with necrosis of muscle PLAN: Patient examined evaluated, all findings reyes with patient in detail. Wounds to left foot are improving at this time. Vessel closure removed well approximated dorsal lateral foot wound. Plantar midfoot wound improving. Improving granulation around medial first MPJ. Patient is following with vascular surgery as an outpatient. Patient is following with infectious disease and has him going to infusion center for IV antibiotics. The left first metatarsal phalangeal joint wound, dorsal lateral foot wound and plantar midfoot wounds were debrided down to including level of capsule and tendon of all nonviable tissue without incident. This was performed using 5 mm dermal curette. Hemostasis obtained with light compression. Patient tolerated procedure well. No anesthesia due to neuropathy. Pre and postdebridement measurements document nursing notes. Patient will perform daily cleansing of his foot with dressing changes consisting of Dakin's DSD no compression. Patient will maintain heel weightbearing status in cam walking boot assisted with a walker patient has a walker at home. Patient will follow up in 1 week. Patient is high risk for proximal amputation and understands this.
[2021-10-31 10:59] VITALS: BP 143/86; PULSE 75; RESP 16; TEMP 36.2; BMI 23.8
--- NOTE | 2021-10-31 11:28 | PCM.WC.PN ---
History of Present Illness Date of Service: 10/31/21 Chief Complaint: Left 3rd toe redness History of Wound: This 60-year-old male seen in the wound care center for chronic left foot ulceration secondary to peripheral arterial disease. Patient recently underwent quadruple bypass surgery successfully at [facility]. Patient has stent placed in popliteal artery due to popliteal occlusion and left lower extremity on the hospital 4 week prior. Subsequently the next day patient had a wound debridement with amputation of the fourth ray left open with vessel loop closure to the dorsal midfoot and wet-to-dry dressings to the plantar midfoot and medial first metatarsophalangeal joints. At this time he denies any constitutional symptoms chest pain calf pain or shortness of breath. Patient has been ambulating limited to his house with a cam boot limited to his heel. Patient receiving 6 weeks IV antibiotics at infusion center. No other complaints. Objective Data Objective Data Vital Signs: Vital Signs Temp Pulse Resp BP O2 Del Method 97.2 F L 75 16 143/86 H Room Air 10/31/21 10:59 10/31/21 10:59 10/31/21 10:59 10/31/21 10:59 10/31/21 10:59 Oxygen Delivery Method Room Air Weight: 77.564 kg Body Mass Index (BMI) 23.8 Physical Exam Narrative Improve vascularity left lower extremity. Dermatologic: Partial third and fourth ray resection sites demonstrate a reduced With vessel loop closure intact. Wound demonstrates granular nature. Plantar midfoot wound demonstrates fibrogranular base pre and postdebridement. Medial first metatarsal phalangeal joint wound is down to level of capsule there is a bleeding granular wound edge but the base of the wound is nonviable at this time. Musculoskeletal: Partial amputation to left third and fourth ray. no wound forming deformity noted to bilateral lower extremity. Muscular strength 5 out of 5 to bilateral lower extremity compartments No pain with calf squeeze bilateral lower extremities. Debridement Note Debridement Note Post-Debridement Measurements and Additional Note: Post-Debridement Measurements/Treatment WC - Nurse 1 - General Ulcer Assessment Start: 10/17/21 10:18 Freq: Status: Active Protocol: ROYCE.LOWEXT Activity Type Activity Date Activity User E-sign Co-sign Detail Recorded Client Recorded Date Recorded By Document 10/17/21 10:18 [facility] [id number] 08/02/22 10:26 BMF Document 10/24/21 10:45 MW Desktop 10/24/21 10:57 MW Document 10/31/21 10:59 [facility] [id number] 10/31/21 11:13 BMF 10/17/21 10/24/21 10/31/21 10:18 10:45 10:59 - Today's Visit Information Type of service Follow-up Visit Follow-up Visit Follow-up Visit (Physician/MARKETING SEGMENT MANAGER (Physician/MARKETING SEGMENT MANAGER (Physician/MARKETING SEGMENT MANAGER ) ) ) Arrival Mode Wheelchair Wheelchair Wheelchair Transfer Assistance None None None Accompanied by self Patient Identification Verified (Name & Yes Yes Yes ) Patient Requires Transmission-Based No No No Precautions Safety Precautions NA Height and Weight Body Mass Index (BMI) 23.8 23.8 23.8 BMI Classification Normal Normal Normal Vital Signs Temperature (97.8 F-99.1 F) 96.6 F L 97.3 F L 97.2 F L Temperature Source Temporal Temporal Temporal Pulse Rate (60-100) 73 78 75 Pulse Location Monitor Monitor Monitor Respiratory Rate (12-18) 16 18 16 Respiratory rate source Observation Observation Observation Oxygen Delivery Method Room Air Room Air Room Air Blood Pressure (90/60-120/80) 125/78 H 113/78 143/86 H Blood Pressure Mean (mm Hg) 93 89 105 Source Monitor Monitor Monitor Position Sitting Sitting Sitting Blood Pressure Location Left Arm Left Arm Left Arm History Since Last Visit- (Skip if this is Patient's initial visit) Have you changed medications since your No No No last visit? Any new allergies or adverse reactions No No No Had a fall/change in ADL's that may No No No increase risk of falls Signs or symptoms of abuse and/or No No No neglect since last visit Have you been in the hospital since your No No No last visit? Has dressing in place as prescribed Yes Yes Yes Has compression in place as prescribed N/A N/A N/A Has offloadiing in place as prescribed Yes Yes Yes Experienced any changes in pain level or No No No management Left Footwear Surgical Shoe Surgical Shoe with pressure with pressure relief insole relief insole Right Footwear Regular Shoe Regular Shoe Pain Scale: 0-10 Numeric Is Patient Pain Free? Yes Yes Yes - Nurse 1 - General Ulcer Measurement Start: 10/17/21 10:18 Freq: Status: Active Protocol: Activity Type Activity Date Activity User E-sign Co-sign Detail Recorded Client Recorded Date Recorded By Document 10/17/21 10:18 [facility] [id number] 10/17/21 10:26 BM Document 10/24/21 10:45 MW Desktop 10/24/21 10:57 MW Document 10/31/21 10:59 [facility] [id number] 10/31/21 11:13 [facility] 10/17/21 10/24/21 10/31/21 10:18 10:45 10:59 Wound Center Nurse 1 #7 Left foot 4th toe amp site -Combined with other wound No No No -Current Size (cm) - Length 11.5 2.1 3.7 -Current Size (cm) - Width 1.6 1.2 1.5 -Current Size (cm) - Depth 1.3 0.8 0.9 -Total Square Cm 18.40 2.52 5.55 -Date of Last Picture (Recall this 10/31/21 field) -Photo Taken No No Yes -Epithelialization None Present None Present Small 1-33% -Tunneling No No No -Undermining/Tunneling No No No -Circular Undermining No No No -Exudate Amt Medium Medium Medium -Exudate Type Serosanguineous Serosanguineous Serosanguineous -Wound Margin Distinct, Distinct, Thickened & Outline Outline Rolled Under Attached Attached -Granulation Amt Large (67-100%) Small (1-33%) Medium (34-66%) -Granulation Quality Dulce Dulce Red -Slough/Fibrin Yes Yes Yes -Necrosis Amt Small (1-33%) Large (67-100%) Medium (34-66%) -Necrotic Tissue Type Adherent Slough Adherent Slough Adherent Slough -Structure Exposed N/A -Texture (Bernadette-wound Skin Appearance) Assessed, Assessed, Assessed, Scarring Localized Edema Scarring ,Scarring -Moisture (Bernadette-wound Skin Appearance) Assessed Assessed,Dry/ Assessed Scaly -Color (Bernadette-wound Skin Appearance) Assessed Assessed Assessed -Temperature (Bernadette-wound Skin No Abnormality No Abnormality No Abnormality Appearance) (Pt Warm) (Pt Warm) (Pt Warm) -Tenderness on Palpation (Bernadette-wound No No No Skin Appearance) -Ulcer Cleansing Rinsed/ Soap and Water Rinsed/ Irrigated with Irrigated with Saline Saline -Foul Odor after Cleansing No No No -Anesthetic Used 4% Lidocaine 4% Lidocaine 4% Lidocaine Solution Solution Solution -Wound Comment(s) cande, red sutures in place #6- L MEDIAL FOOT -Combined with other wound No No No -Current Size (cm) - Length 3.5 4.0 3.6 -Current Size (cm) - Width 3.2 2.9 2.8 -Current Size (cm) - Depth 0.2 0.3 0.2 -Total Square Cm 11.20 11.60 10.08 -Date of Last Picture (Recall this 10/31/21 field) -Photo Taken No No Yes -Epithelialization None Present None Present None Present -Tunneling No No No -Undermining/Tunneling No No No -Circular Undermining No No No -Exudate Amt None Present Small Small -Exudate Type Serosanguineous Serosanguineous -Wound Margin Distinct, Distinct, Distinct, Outline Outline Outline Attached Attached Attached -Granulation Amt None Present (0 None Present (0 None Present (0 %) %) %) -Granulation Quality N/A -Slough/Fibrin Yes Yes Yes -Necrosis Amt Large (67-100%) Large (67-100%) Large (67-100%) -Necrotic Tissue Type Adherent Slough Adherent Slough Adherent Slough -Structure Exposed Bone N/A Bone -Texture (Bernadette-wound Skin Appearance) Assessed, Assessed,Callus Assessed Scarring -Moisture (Bernadette-wound Skin Appearance) Assessed Assessed,Dry/ Assessed Scaly -Color (Bernadette-wound Skin Appearance) Assessed Assessed Assessed -Temperature (Bernadette-wound Skin No Abnormality No Abnormality No Abnormality Appearance) (Pt Warm) (Pt Warm) (Pt Warm) -Tenderness on Palpation (Bernadette-wound No No No Skin Appearance) -Ulcer Cleansing Rinsed/ Soap and Water Rinsed/ Irrigated with Irrigated with Saline Saline -Foul Odor after Cleansing No No No -Anesthetic Used 4% Lidocaine 4% Lidocaine 4% Lidocaine Solution Solution Solution #4- L PLANTAR FOOT -Combined with other wound No No No -Current Size (cm) - Length 3.4 3.3 3.4 -Current Size (cm) - Width 3.4 2.6 2.6 -Current Size (cm) - Depth 0.9 0.7 0.5 -Total Square Cm 11.56 8.58 8.84 -Date of Last Picture (Recall this 10/31/21 field) -Photo Taken No No Yes -Epithelialization Small 1-33% None Present Small 1-33% -Tunneling No No No -Undermining/Tunneling Yes No No -Undermining/Tunneling Starts (O'clock 11 ) -Undermining/Tunneling Ends (O'clock) 12 -Maximum Distance (cm) 1 -Circular Undermining No No No -Exudate Amt Large Medium Medium -Exudate Type Serosanguineous Serosanguineous Serosanguineous -Wound Margin Distinct, Distinct, Distinct, Outline Outline Outline Attached Attached Attached -Granulation Amt Large (67-100%) Large (67-100%) Large (67-100%) -Granulation Quality Red Red Red -Slough/Fibrin No Yes Yes -Necrosis Amt None Present (0 Small (1-33%) Small (1-33%) %) -Necrotic Tissue Type Adherent Slough Adherent Slough -Structure Exposed N/A -Texture (Bernadette-wound Skin Appearance) Assessed, Assessed, Assessed, Scarring Localized Edema Scarring ,Scarring -Moisture (Bernadette-wound Skin Appearance) Assessed,Dry/ Assessed,Dry/ Assessed Scaly Scaly -Color (Bernadette-wound Skin Appearance) Assessed Assessed Assessed -Temperature (Bernadette-wound Skin No Abnormality No Abnormality No Abnormality Appearance) (Pt Warm) (Pt Warm) (Pt Warm) -Tenderness on Palpation (Bernadette-wound No No No Skin Appearance) -Ulcer Cleansing Rinsed/ Soap and Water Rinsed/ Irrigated with Irrigated with Saline Saline -Foul Odor after Cleansing No No No -Anesthetic Used 4% Lidocaine 4% Lidocaine 4% Lidocaine Solution Solution Solution WC - Nurse 2 - General Ulcer CM Notes Start: 10/17/21 10:18 Freq: Status: Active Protocol: Activity Type Activity Date Activity User E-sign Co-sign Detail Recorded Client Recorded Date Recorded By Document 10/17/21 10:35 ORESTES [id number] 10/17/21 10:41 Document 10/24/21 11:23 ORESTES [id number] 10/24/21 11:30 Document 10/31/21 11:22 [id number] 10/31/21 11:26 10/17/21 10/24/21 10/31/21 10:35 11:23 11:22 Wound Center Nurse 2 #7 Left foot 4th toe amp site -Time 10:38 11:23 11:23 -Correct Patient Yes Yes Yes -Correct Side, Site, Position Yes Yes Yes -Correct Procedure Yes Yes Yes -Procedure Performed Yes Yes Yes -Type of Procedure Debridement Debridement Debridement -Clinical Debridement Subcutaneous Muscle / Fascia Subcutaneous -Tissue Removed Subcutaneous Muscle Subcutaneous -Post Debridement (cm) - Length 11.6 2.2 3.8 -Post Debridement (cm) - Width 1.6 1.2 1.5 -Post Debridement (cm) - Depth 1.3 0.8 0.9 -Total Square (Post) (cm) 18.56 2.64 5.70 -Area of Debridement (cm) - Length 11.6 2.2 3.8 -Area of Debridement (cm) - Width 1.6 1.2 1.5 -Total Square (Area) (cm) 18.56 2.64 5.70 -Tunneling No No No -Undermining/Tunneling No No No -Circular Undermining No No No -Wound/Ulcer Outcome Not Healed Not Healed Not Healed -Ulcer Cleansing Rinsed/ Rinsed/ Rinsed/ Irrigated with Irrigated with Irrigated with Saline Saline Saline -Foul Odor after Cleansing No No No -Bioengineered Tissue No No No -Bleeding Controlled with Pressure Pressure Pressure -Treatment Response Procedure Procedure Procedure Tolerated Well Tolerated Well Tolerated Well -Offloading Yes No Yes -Type of Offloading Surgical Shoe Surgical Shoe -Assistive Device(s) Wheelchair Wheelchair -Debridement - Subq, 1st 20sq cm No No -Debridement - Muscle / Fascia, 1st No 20sq cm #6- L MEDIAL FOOT -Time 10:39 11:24 11:23 -Correct Patient Yes Yes Yes -Correct Side, Site, Position Yes Yes Yes -Correct Procedure Yes Yes Yes -Procedure Performed Yes Yes Yes -Type of Procedure Debridement Debridement Debridement -Clinical Debridement Subcutaneous Muscle / Fascia Subcutaneous -Tissue Removed Subcutaneous Muscle,Fascia Subcutaneous -Post Debridement (cm) - Length 3.5 4 3.7 -Post Debridement (cm) - Width 3.3 3 2.8 -Post Debridement (cm) - Depth 0.2 0.3 0.2 -Total Square (Post) (cm) 11.55 12 10.36 -Area of Debridement (cm) - Length 3.5 4 3.7 -Area of Debridement (cm) - Width 3.3 3 2.8 -Total Square (Area) (cm) 11.55 12 10.36 -Tunneling No No No -Undermining/Tunneling No No No -Circular Undermining No No No -Wound/Ulcer Outcome Not Healed Not Healed Not Healed -Ulcer Cleansing Rinsed/ Rinsed/ Rinsed/ Irrigated with Irrigated with Irrigated with Saline Saline Saline -Foul Odor after Cleansing No No No -Bioengineered Tissue No No No -Bleeding Controlled with Pressure Pressure Pressure -Treatment Response Procedure Procedure Procedure Tolerated Well Tolerated Well Tolerated Well -Offloading Yes Yes Yes -Type of Offloading Surgical Shoe Surgical Shoe Surgical Shoe -Assistive Device(s) Wheelchair, Crutches -Debridement - Subq, 1st 20sq cm No No -Debridement - Muscle / Fascia, 1st No 20sq cm #4- L PLANTAR FOOT -Time 10:40 11:24 11:24 -Correct Patient Yes Yes Yes -Correct Side, Site, Position Yes Yes Yes -Correct Procedure Yes Yes Yes -Procedure Performed Yes Yes Yes -Type of Procedure Debridement Debridement Debridement -Clinical Debridement Subcutaneous Muscle / Fascia Subcutaneous -Tissue Removed Subcutaneous Muscle,Fascia Subcutaneous -Post Debridement (cm) - Length 3.5 3.4 3.5 -Post Debridement (cm) - Width 3.5 2.6 2.6 -Post Debridement (cm) - Depth 0.9 0.8 0.5 -Total Square (Post) (cm) 12.25 8.84 9.10 -Area of Debridement (cm) - Length 3.5 3.4 3.5 -Area of Debridement (cm) - Width 3.5 2.6 2.6 -Total Square (Area) (cm) 12.25 8.84 9.10 -Tunneling No No No -Undermining/Tunneling No No No -Circular Undermining No No No -Wound/Ulcer Outcome Not Healed Not Healed Not Healed -Ulcer Cleansing Rinsed/ Rinsed/ Rinsed/ Irrigated with Irrigated with Irrigated with Saline Saline Saline -Foul Odor after Cleansing No No No -Bioengineered Tissue No No No -Bleeding Controlled with Pressure Pressure Pressure -Treatment Response Procedure Procedure Procedure Tolerated Well Tolerated Well Tolerated Well -Offloading Yes Yes Yes -Type of Offloading Surgical Shoe Surgical Shoe Surgical Shoe -Debridement - Subq, 1st 20sq cm Yes Yes -Debridement, SubQ, ea addt'l 20sq cm 2 1 or part thereof -Debridement - Muscle / Fascia, 1st Yes 20sq cm -Debridement, Muscle/Fascia, ea addt'l 1 20sq cm or part thereof Pain Scale: 0-10 Numeric Is Patient Pain Free? Yes Yes Yes - Nurse 3 - General Ulcer D/C NN Start: 10/17/21 10:18 Freq: Status: Active Protocol: Activity Type Activity Date Activity User E-sign Co-sign Detail Recorded Client Recorded Date Recorded By Document 10/17/21 10:50 [facility] [id number] 10/17/21 10:51 BM Document 10/24/21 11:40 MW Desktop 10/24/21 12:12 MW 10/17/21 10/24/21 10:50 11:40 Wound Care Nurse 3 #7 Left foot 4th toe amp site -Ulcer Cleansing Rinsed/ Rinsed/ Irrigated with Irrigated with Saline Saline -Foul Odor after Cleansing No No -Negative Pressure Wound Therapy N/A -Primary Dressing Applied Other -Other Dressing moist to dry saline wet to dry -Primary Dressing Covered/Secured with Dry Gauze & Dry Gauze & Roll Gauze, Roll Gauze, Secured with Secured with Tape Tape -Other Covering abd #6- L MEDIAL FOOT -Ulcer Cleansing Rinsed/ Rinsed/ Irrigated with Irrigated with Saline Saline -Foul Odor after Cleansing No No -Negative Pressure Wound Therapy N/A -Primary Dressing Applied Other -Other Dressing moist to dry saline wet to dry -Primary Dressing Covered/Secured with Dry Gauze & Dry Gauze & Roll Gauze, Roll Gauze, Secured with Secured with Tape Tape -Other Covering abd #4- L PLANTAR FOOT -Ulcer Cleansing Rinsed/ Rinsed/ Irrigated with Irrigated with Saline Saline -Foul Odor after Cleansing No No -Negative Pressure Wound Therapy N/A -Other Dressing moist to dry saline wet to dry -Primary Dressing Covered/Secured with Dry Gauze & Dry Gauze & Roll Gauze, Roll Gauze, Other Secured with Tape -Other Covering abd abd Left -Compression Wrap Mian Wrap Mian Wrap -Other mian to secure Treatment Response Procedure Procedure Tolerated Well Tolerated Well Pain Scale: 0-10 Numeric Is Patient Pain Free? Yes Yes Teaching: Wound Center Dressing Your Wound -Person Taught Patient -Teaching Method Discussion -Response to teaching Verbalize understanding WC - Visit Discharge Discharge Condition Stable Stable Ambulatory Status Wheelchair Walker Transportation Private Auto Private Auto Accompanied by Medication Reconcilliation completed & No provided to patient/care provider Clinical Summary of Care Provided Yes Assessment/Plan Assessment/Plan (1) Peripheral vascular disease, unspecified: CODE(S): I73.9 - Peripheral vascular disease, unspecified (2) Non-pressure chronic ulcer of other part of left foot with necrosis of muscle: CODE(S): L97.523 - Non-pressure chronic ulcer of other part of left foot with necrosis of muscle PLAN: Patient examined evaluated, all findings reyes with patient in detail. Wounds to left foot are improving at this time. dorsal lateral foot wound improving. Plantar midfoot wound improving. Improving granulation around medial first MPJ. Patient is following with vascular surgery as an outpatient. Patient is following with infectious disease and has him going to infusion center for IV antibiotics. The left first metatarsal phalangeal joint wound, dorsal lateral foot wound and plantar midfoot wounds were debrided down to including level of capsule and tendon of all nonviable tissue without incident. This was performed using 5 mm dermal curette. Hemostasis obtained with light compression. Patient tolerated procedure well. No anesthesia due to neuropathy. Pre and postdebridement measurements document nursing notes. Patient will perform daily cleansing of his foot with dressing changes consisting of Dakin's DSD no compression. Patient will maintain heel weightbearing status in cam walking boot assisted with a walker patient has a walker at home. Patient will follow up in 1 week. Patient is high risk for proximal amputation and understands this.
[2021-11-07 11:06] VITALS: BP 113/76; PULSE 82; TEMP 36.3; BMI 23.8
--- NOTE | 2021-11-07 11:51 | PCM.WC.PN ---
History of Present Illness Date of Service: 11/07/21 Chief Complaint: Left 3rd toe redness History of Wound: This 60-year-old male seen in the wound care center for chronic left foot ulceration secondary to peripheral arterial disease. Patient recently underwent quadruple bypass surgery successfully at [facility]. Patient has stent placed in popliteal artery due to popliteal occlusion and left lower extremity on the hospital 4 week prior. Subsequently the next day patient had a wound debridement with amputation of the fourth ray left open with vessel loop closure to the dorsal midfoot and wet-to-dry dressings to the plantar midfoot and medial first metatarsophalangeal joints. At this time he denies any constitutional symptoms chest pain calf pain or shortness of breath. Patient has been ambulating limited to his house with a cam boot limited to his heel. Patient receiving 6 weeks IV antibiotics at infusion center. No other complaints. Objective Data Objective Data Vital Signs: Vital Signs Temp Pulse Resp BP O2 Del Method 97.3 F L 82 16 113/76 Room Air 11/07/21 11:06 11/07/21 11:06 10/31/21 10:59 11/07/21 11:06 10/31/21 10:59 Oxygen Delivery Method Room Air Weight: 77.564 kg Body Mass Index (BMI) 23.8 Physical Exam Narrative Improve vascularity left lower extremity. Dermatologic: Partial third and fourth ray resection sites demonstrate a reduced With vessel loop closure intact. Wound demonstrates granular nature. Plantar midfoot wound demonstrates fibrogranular base pre and postdebridement. Medial first metatarsal phalangeal joint wound is down to level of capsule there is a bleeding granular wound edge but the base of the wound is nonviable at this time. Musculoskeletal: Partial amputation to left third and fourth ray. no wound forming deformity noted to bilateral lower extremity. Muscular strength 5 out of 5 to bilateral lower extremity compartments No pain with calf squeeze bilateral lower extremities. Debridement Note Debridement Note Post-Debridement Measurements and Additional Note: Post-Debridement Measurements/Treatment - Nurse 1 - General Ulcer Assessment Start: 10/17/21 10:18 Freq: Status: Active Protocol: ROYCE.LOWEXT Activity Type Activity Date Activity User E-sign Co-sign Detail Recorded Client Recorded Date Recorded By Document 10/17/21 10:18 [facility] [id number] 10/17/21 10:26 BMF Document 10/24/21 10:45 MW Desktop 10/24/21 10:57 MW Document 10/31/21 10:59 [facility] [id number] 10/31/21 11:13 BMF Document 11/07/21 11:06 KR [id number] 11/07/21 11:10 KR 10/17/21 10/24/21 10/31/21 10:18 10:45 10:59 WC - Today's Visit Information Type of service Follow-up Visit Follow-up Visit Follow-up Visit (Physician/BANKING MANAGEMENT CONSULTING MANAGER (Physician/BANKING MANAGEMENT CONSULTING MANAGER (Physician/BANKING MANAGEMENT CONSULTING MANAGER ) ) ) Arrival Mode Wheelchair Wheelchair Wheelchair Transfer Assistance None None None Accompanied by self Patient Identification Verified (Name & Yes Yes Yes ) Patient Requires Transmission-Based No No No Precautions Safety Precautions NA Height and Weight Body Mass Index (BMI) 23.8 23.8 23.8 BMI Classification Normal Normal Normal Vital Signs Temperature (97.8 F-99.1 F) 96.6 F L 97.3 F L 97.2 F L Temperature Source Temporal Temporal Temporal Pulse Rate (60-100) 73 78 75 Pulse Location Monitor Monitor Monitor Respiratory Rate (12-18) 16 18 16 Respiratory rate source Observation Observation Observation Oxygen Delivery Method Room Air Room Air Room Air Blood Pressure (90/60-120/80) 125/78 H 113/78 143/86 H Blood Pressure Mean (mm Hg) 93 89 105 Source Monitor Monitor Monitor Position Sitting Sitting Sitting Blood Pressure Location Left Arm Left Arm Left Arm History Since Last Visit- (Skip if this is Patient's initial visit) Have you changed medications since your No No No last visit? Any new allergies or adverse reactions No No No Had a fall/change in ADL's that may No No No increase risk of falls Signs or symptoms of abuse and/or No No No neglect since last visit Have you been in the hospital since your No No No last visit? Has dressing in place as prescribed Yes Yes Yes Has compression in place as prescribed N/A N/A N/A Has offloadiing in place as prescribed Yes Yes Yes Experienced any changes in pain level or No No No management Left Footwear Surgical Shoe Surgical Shoe with pressure with pressure relief insole relief insole Right Footwear Regular Shoe Regular Shoe Pain Scale: 0-10 Numeric Is Patient Pain Free? Yes Yes Yes 11/07/21 11:06 - Today's Visit Information Type of service Follow-up Visit (Physician/BANKING MANAGEMENT CONSULTING MANAGER ) Arrival Mode Wheelchair Transfer Assistance Accompanied by Patient Identification Verified (Name & Yes ) Patient Requires Transmission-Based No Precautions Safety Precautions NA Height and Weight Body Mass Index (BMI) 23.8 BMI Classification Normal Vital Signs Temperature (97.8 F-99.1 F) 97.3 F L Temperature Source Temporal Pulse Rate (60-100) 82 Pulse Location Monitor Respiratory Rate (12-18) Respiratory rate source Oxygen Delivery Method Blood Pressure (90/60-120/80) 113/76 Blood Pressure Mean (mm Hg) 88 Source Monitor Position Blood Pressure Location History Since Last Visit- (Skip if this is Patient's initial visit) Have you changed medications since your No last visit? Any new allergies or adverse reactions No Had a fall/change in ADL's that may No increase risk of falls Signs or symptoms of abuse and/or No neglect since last visit Have you been in the hospital since your No last visit? Has dressing in place as prescribed Yes Has compression in place as prescribed N/A Has offloadiing in place as prescribed N/A Experienced any changes in pain level or No management Left Footwear Regular Shoe Right Footwear Regular Shoe Pain Scale: 0-10 Numeric Is Patient Pain Free? Yes - Nurse 1 - General Ulcer Measurement Start: 10/17/21 10:18 Freq: Status: Active Protocol: Activity Type Activity Date Activity User E-sign Co-sign Detail Recorded Client Recorded Date Recorded By Document 10/17/21 10:18 [facility] [id number] 10/17/21 10:26 BM Document 10/24/21 10:45 MW Desktop 10/24/21 10:57 MW Document 10/31/21 10:59 [facility] [id number] 10/31/21 11:13 BM Document 11/07/21 11:06 KR [id number] 11/07/21 11:10 KR 10/17/21 10/24/21 10/31/21 10:18 10:45 10:59 Wound Center Nurse 1 #7 Left foot 4th toe amp site -Combined with other wound No No No -Current Size (cm) - Length 11.5 2.1 3.7 -Current Size (cm) - Width 1.6 1.2 1.5 -Current Size (cm) - Depth 1.3 0.8 0.9 -Total Square Cm 18.40 2.52 5.55 -Date of Last Picture (Recall this 10/31/21 field) -Photo Taken No No Yes -Epithelialization None Present None Present Small 1-33% -Tunneling No No No -Undermining/Tunneling No No No -Circular Undermining No No No -Change in Wound Grade/Stage -Exudate Amt Medium Medium Medium -Exudate Type Serosanguineous Serosanguineous Serosanguineous -Wound Margin Distinct, Distinct, Thickened & Outline Outline Rolled Under Attached Attached -Granulation Amt Large (67-100%) Small (1-33%) Medium (34-66%) -Granulation Quality [place] Red -Slough/Fibrin Yes Yes Yes -Necrosis Amt Small (1-33%) Large (67-100%) Medium (34-66%) -Necrotic Tissue Type Adherent Slough Adherent Slough Adherent Slough -Structure Exposed N/A -Texture (Bernadette-wound Skin Appearance) Assessed, Assessed, Assessed, Scarring Localized Edema Scarring ,Scarring -Moisture (Bernadette-wound Skin Appearance) Assessed Assessed,Dry/ Assessed Scaly -Color (Bernadette-wound Skin Appearance) Assessed Assessed Assessed -Temperature (Bernadette-wound Skin No Abnormality No Abnormality No Abnormality Appearance) (Pt Warm) (Pt Warm) (Pt Warm) -Tenderness on Palpation (Bernadette-wound No No No Skin Appearance) -Ulcer Cleansing Rinsed/ Soap and Water Rinsed/ Irrigated with Irrigated with Saline Saline -Foul Odor after Cleansing No No No -Anesthetic Used 4% Lidocaine 4% Lidocaine 4% Lidocaine Solution Solution Solution -Wound Comment(s) cande, red sutures in place #6- L MEDIAL FOOT -Combined with other wound No No No -Current Size (cm) - Length 3.5 4.0 3.6 -Current Size (cm) - Width 3.2 2.9 2.8 -Current Size (cm) - Depth 0.2 0.3 0.2 -Total Square Cm 11.20 11.60 10.08 -Date of Last Picture (Recall this 10/31/21 field) -Photo Taken No No Yes -Epithelialization None Present None Present None Present -Tunneling No No No -Undermining/Tunneling No No No -Circular Undermining No No No -Change in Wound Grade/Stage -Exudate Amt None Present Small Small -Exudate Type Serosanguineous Serosanguineous -Wound Margin Distinct, Distinct, Distinct, Outline Outline Outline Attached Attached Attached -Granulation Amt None Present (0 None Present (0 None Present (0 %) %) %) -Granulation Quality N/A -Slough/Fibrin Yes Yes Yes -Necrosis Amt Large (67-100%) Large (67-100%) Large (67-100%) -Necrotic Tissue Type Adherent Slough Adherent Slough Adherent Slough -Structure Exposed Bone N/A Bone -Texture (Bernadette-wound Skin Appearance) Assessed, Assessed,Callus Assessed Scarring -Moisture (Bernadette-wound Skin Appearance) Assessed Assessed,Dry/ Assessed Scaly -Color (Bernadette-wound Skin Appearance) Assessed Assessed Assessed -Temperature (Bernadette-wound Skin No Abnormality No Abnormality No Abnormality Appearance) (Pt Warm) (Pt Warm) (Pt Warm) -Tenderness on Palpation (Bernadette-wound No No No Skin Appearance) -Ulcer Cleansing Rinsed/ Soap and Water Rinsed/ Irrigated with Irrigated with Saline Saline -Foul Odor after Cleansing No No No -Anesthetic Used 4% Lidocaine 4% Lidocaine 4% Lidocaine Solution Solution Solution #4- L PLANTAR FOOT -Combined with other wound No No No -Current Size (cm) - Length 3.4 3.3 3.4 -Current Size (cm) - Width 3.4 2.6 2.6 -Current Size (cm) - Depth 0.9 0.7 0.5 -Total Square Cm 11.56 8.58 8.84 -Date of Last Picture (Recall this 10/31/21 field) -Photo Taken No No Yes -Epithelialization Small 1-33% None Present Small 1-33% -Tunneling No No No -Undermining/Tunneling Yes No No -Undermining/Tunneling Starts (O'clock 11 ) -Undermining/Tunneling Ends (O'clock) 12 -Maximum Distance (cm) 1 -Circular Undermining No No No -Change in Wound Grade/Stage -Exudate Amt Large Medium Medium -Exudate Type Serosanguineous Serosanguineous Serosanguineous -Wound Margin Distinct, Distinct, Distinct, Outline Outline Outline Attached Attached Attached -Granulation Amt Large (67-100%) Large (67-100%) Large (67-100%) -Granulation Quality Red Red Red -Slough/Fibrin No Yes Yes -Necrosis Amt None Present (0 Small (1-33%) Small (1-33%) %) -Necrotic Tissue Type Adherent Slough Adherent Slough -Structure Exposed N/A -Texture (Bernadette-wound Skin Appearance) Assessed, Assessed, Assessed, Scarring Localized Edema Scarring ,Scarring -Moisture (Bernadette-wound Skin Appearance) Assessed,Dry/ Assessed,Dry/ Assessed Scaly Scaly -Color (Bernadette-wound Skin Appearance) Assessed Assessed Assessed -Temperature (Bernadette-wound Skin No Abnormality No Abnormality No Abnormality Appearance) (Pt Warm) (Pt Warm) (Pt Warm) -Tenderness on Palpation (Bernadette-wound No No No Skin Appearance) -Ulcer Cleansing Rinsed/ Soap and Water Rinsed/ Irrigated with Irrigated with Saline Saline -Foul Odor after Cleansing No No No -Anesthetic Used 4% Lidocaine 4% Lidocaine 4% Lidocaine Solution Solution Solution 11/07/21 11:06 Wound Center Nurse 1 #7 Left foot 4th toe amp site -Combined with other wound No -Current Size (cm) - Length 3.4 -Current Size (cm) - Width 1.5 -Current Size (cm) - Depth 1.4 -Total Square Cm 5.10 -Date of Last Picture (Recall this 11/07/21 field) -Photo Taken Yes -Epithelialization None Present -Tunneling No -Undermining/Tunneling No -Circular Undermining No -Change in Wound Grade/Stage No -Exudate Amt Medium -Exudate Type Serosanguineous -Wound Margin Distinct, Outline Attached -Granulation Amt Small (1-33%) -Granulation Quality Point -Slough/Fibrin Yes -Necrosis Amt Large (67-100%) -Necrotic Tissue Type Adherent Slough -Structure Exposed N/A -Texture (Bernadette-wound Skin Appearance) Assessed, Scarring -Moisture (Bernadette-wound Skin Appearance) No Abnormality, Assessed -Color (Bernadette-wound Skin Appearance) No Abnormality, Assessed -Temperature (Bernadette-wound Skin No Abnormality Appearance) (Pt Warm) -Tenderness on Palpation (Bernadette-wound No Skin Appearance) -Ulcer Cleansing Rinsed/ Irrigated with Saline -Foul Odor after Cleansing No -Anesthetic Used 5% Lidocaine Gel -Wound Comment(s) #6- L MEDIAL FOOT -Combined with other wound No -Current Size (cm) - Length 3.3 -Current Size (cm) - Width 2.8 -Current Size (cm) - Depth 0.2 -Total Square Cm 9.24 -Date of Last Picture (Recall this 11/07/21 field) -Photo Taken Yes -Epithelialization -Tunneling No -Undermining/Tunneling No -Circular Undermining No -Change in Wound Grade/Stage No -Exudate Amt Small -Exudate Type Serosanguineous -Wound Margin Distinct, Outline Attached -Granulation Amt Small (1-33%) -Granulation Quality Point -Slough/Fibrin Yes -Necrosis Amt Medium (34-66%) -Necrotic Tissue Type Eschar -Structure Exposed N/A -Texture (Bernadette-wound Skin Appearance) Assessed, Scarring -Moisture (Bernadette-wound Skin Appearance) No Abnormality, Assessed -Color (Bernadette-wound Skin Appearance) No Abnormality, Assessed -Temperature (Bernadette-wound Skin No Abnormality Appearance) (Pt Warm) -Tenderness on Palpation (Bernadette-wound No Skin Appearance) -Ulcer Cleansing Rinsed/ Irrigated with Saline -Foul Odor after Cleansing No -Anesthetic Used 5% Lidocaine Gel #4- L PLANTAR FOOT -Combined with other wound No -Current Size (cm) - Length 3 -Current Size (cm) - Width 2.1 -Current Size (cm) - Depth 0.6 -Total Square Cm 6.3 -Date of Last Picture (Recall this 11/07/21 field) -Photo Taken Yes -Epithelialization None Present -Tunneling No -Undermining/Tunneling No -Undermining/Tunneling Starts (O'clock ) -Undermining/Tunneling Ends (O'clock) -Maximum Distance (cm) -Circular Undermining No -Change in Wound Grade/Stage No -Exudate Amt Medium -Exudate Type Yellow/Green -Wound Margin Distinct, Outline Attached -Granulation Amt Small (1-33%) -Granulation Quality -Slough/Fibrin Yes -Necrosis Amt None Present (0 %) -Necrotic Tissue Type -Structure Exposed N/A -Texture (Bernadette-wound Skin Appearance) Assessed, Scarring -Moisture (Bernadette-wound Skin Appearance) No Abnormality, Assessed -Color (Bernadette-wound Skin Appearance) No Abnormality, Assessed -Temperature (Bernadette-wound Skin No Abnormality Appearance) (Pt Warm) -Tenderness on Palpation (Bernadette-wound No Skin Appearance) -Ulcer Cleansing Rinsed/ Irrigated with Saline -Foul Odor after Cleansing No -Anesthetic Used 5% Lidocaine Gel WC - Nurse 2 - General Ulcer CM Notes Start: 10/17/21 10:18 Freq: Status: Active Protocol: Activity Type Activity Date Activity User E-sign Co-sign Detail Recorded Client Recorded Date Recorded By Document 10/17/21 10:35 [id number] 10/17/21 10:41 Document 10/24/21 11:23 [id number] 10/24/21 11:30 Document 10/31/21 11:22 [id number] 10/31/21 11:26 Document 11/07/21 11:33 [id number] 11/07/21 11:35 10/17/21 10/24/21 10/31/21 10:35 11:23 11:22 Wound Center Nurse 2 #7 Left foot 4th toe amp site -Time 10:38 11:23 11:23 -Correct Patient Yes Yes Yes -Correct Side, Site, Position Yes Yes Yes -Correct Procedure Yes Yes Yes -Procedure Performed Yes Yes Yes -Type of Procedure Debridement Debridement Debridement -Clinical Debridement Subcutaneous Muscle / Fascia Subcutaneous -Tissue Removed Subcutaneous Muscle Subcutaneous -Post Debridement (cm) - Length 11.6 2.2 3.8 -Post Debridement (cm) - Width 1.6 1.2 1.5 -Post Debridement (cm) - Depth 1.3 0.8 0.9 -Total Square (Post) (cm) 18.56 2.64 5.70 -Area of Debridement (cm) - Length 11.6 2.2 3.8 -Area of Debridement (cm) - Width 1.6 1.2 1.5 -Total Square (Area) (cm) 18.56 2.64 5.70 -Tunneling No No No -Undermining/Tunneling No No No -Circular Undermining No No No -Wound/Ulcer Outcome Not Healed Not Healed Not Healed -Ulcer Cleansing Rinsed/ Rinsed/ Rinsed/ Irrigated with Irrigated with Irrigated with Saline Saline Saline -Foul Odor after Cleansing No No No -Bioengineered Tissue No No No -Bleeding Controlled with Pressure Pressure Pressure -Treatment Response Procedure Procedure Procedure Tolerated Well Tolerated Well Tolerated Well -Offloading Yes No Yes -Type of Offloading Surgical Shoe Surgical Shoe -Assistive Device(s) Wheelchair Wheelchair -Debridement - Subq, 1st 20sq cm No No -Debridement - Muscle / Fascia, 1st No 20sq cm #6- L MEDIAL FOOT -Time 10:39 11:24 11:23 -Correct Patient Yes Yes Yes -Correct Side, Site, Position Yes Yes Yes -Correct Procedure Yes Yes Yes -Procedure Performed Yes Yes Yes -Type of Procedure Debridement Debridement Debridement -Clinical Debridement Subcutaneous Muscle / Fascia Subcutaneous -Tissue Removed Subcutaneous Muscle,Fascia Subcutaneous -Post Debridement (cm) - Length 3.5 4 3.7 -Post Debridement (cm) - Width 3.3 3 2.8 -Post Debridement (cm) - Depth 0.2 0.3 0.2 -Total Square (Post) (cm) 11.55 12 10.36 -Area of Debridement (cm) - Length 3.5 4 3.7 -Area of Debridement (cm) - Width 3.3 3 2.8 -Total Square (Area) (cm) 11.55 12 10.36 -Tunneling No No No -Undermining/Tunneling No No No -Circular Undermining No No No -Wound/Ulcer Outcome Not Healed Not Healed Not Healed -Ulcer Cleansing Rinsed/ Rinsed/ Rinsed/ Irrigated with Irrigated with Irrigated with Saline Saline Saline -Foul Odor after Cleansing No No No -Bioengineered Tissue No No No -Bleeding Controlled with Pressure Pressure Pressure -Treatment Response Procedure Procedure Procedure Tolerated Well Tolerated Well Tolerated Well -Offloading Yes Yes Yes -Type of Offloading Surgical Shoe Surgical Shoe Surgical Shoe -Assistive Device(s) Wheelchair, Crutches -Debridement - Subq, 1st 20sq cm No No -Debridement - Muscle / Fascia, 1st No 20sq cm #4- L PLANTAR FOOT -Time 10:40 11:24 11:24 -Correct Patient Yes Yes Yes -Correct Side, Site, Position Yes Yes Yes -Correct Procedure Yes Yes Yes -Procedure Performed Yes Yes Yes -Type of Procedure Debridement Debridement Debridement -Clinical Debridement Subcutaneous Muscle / Fascia Subcutaneous -Tissue Removed Subcutaneous Muscle,Fascia Subcutaneous -Post Debridement (cm) - Length 3.5 3.4 3.5 -Post Debridement (cm) - Width 3.5 2.6 2.6 -Post Debridement (cm) - Depth 0.9 0.8 0.5 -Total Square (Post) (cm) 12.25 8.84 9.10 -Area of Debridement (cm) - Length 3.5 3.4 3.5 -Area of Debridement (cm) - Width 3.5 2.6 2.6 -Total Square (Area) (cm) 12.25 8.84 9.10 -Tunneling No No No -Undermining/Tunneling No No No -Circular Undermining No No No -Wound/Ulcer Outcome Not Healed Not Healed Not Healed -Ulcer Cleansing Rinsed/ Rinsed/ Rinsed/ Irrigated with Irrigated with Irrigated with Saline Saline Saline -Foul Odor after Cleansing No No No -Bioengineered Tissue No No No -Bleeding Controlled with Pressure Pressure Pressure -Treatment Response Procedure Procedure Procedure Tolerated Well Tolerated Well Tolerated Well -Offloading Yes Yes Yes -Type of Offloading Surgical Shoe Surgical Shoe Surgical Shoe -Debridement - Subq, 1st 20sq cm Yes Yes -Debridement, SubQ, ea addt'l 20sq cm 2 1 or part thereof -Debridement - Muscle / Fascia, 1st Yes 20sq cm -Debridement, Muscle/Fascia, ea addt'l 1 20sq cm or part thereof Pain Scale: 0-10 Numeric Is Patient Pain Free? Yes Yes Yes 11/07/21 11:33 Wound Center Nurse 2 #7 Left foot 4th toe amp site -Time 11:33 -Correct Patient Yes -Correct Side, Site, Position Yes -Correct Procedure Yes -Procedure Performed Yes -Type of Procedure Debridement -Clinical Debridement Subcutaneous -Tissue Removed Subcutaneous -Post Debridement (cm) - Length 3.5 -Post Debridement (cm) - Width 1.5 -Post Debridement (cm) - Depth 1.4 -Total Square (Post) (cm) 5.25 -Area of Debridement (cm) - Length 3.5 -Area of Debridement (cm) - Width 1.5 -Total Square (Area) (cm) 5.25 -Tunneling No -Undermining/Tunneling No -Circular Undermining No -Wound/Ulcer Outcome Not Healed -Ulcer Cleansing Rinsed/ Irrigated with Saline -Foul Odor after Cleansing No -Bioengineered Tissue No -Bleeding Controlled with Pressure -Treatment Response Procedure Tolerated Well -Offloading Yes -Type of Offloading Surgical Shoe -Assistive Device(s) -Debridement - Subq, 1st 20sq cm No -Debridement - Muscle / Fascia, 1st 20sq cm #6- L MEDIAL FOOT -Time 11:34 -Correct Patient Yes -Correct Side, Site, Position Yes -Correct Procedure Yes -Procedure Performed Yes -Type of Procedure Debridement -Clinical Debridement Subcutaneous -Tissue Removed Subcutaneous -Post Debridement (cm) - Length 3.4 -Post Debridement (cm) - Width 2.8 -Post Debridement (cm) - Depth 0.2 -Total Square (Post) (cm) 9.52 -Area of Debridement (cm) - Length 3.4 -Area of Debridement (cm) - Width 2.8 -Total Square (Area) (cm) 9.52 -Tunneling No -Undermining/Tunneling No -Circular Undermining No -Wound/Ulcer Outcome Not Healed -Ulcer Cleansing Rinsed/ Irrigated with Saline -Foul Odor after Cleansing No -Bioengineered Tissue No -Bleeding Controlled with Pressure -Treatment Response Procedure Tolerated Well -Offloading Yes -Type of Offloading Surgical Shoe -Assistive Device(s) -Debridement - Subq, 1st 20sq cm Yes -Debridement - Muscle / Fascia, 1st 20sq cm #4- L PLANTAR FOOT -Time 11:34 -Correct Patient Yes -Correct Side, Site, Position Yes -Correct Procedure Yes -Procedure Performed Yes -Type of Procedure Debridement -Clinical Debridement Subcutaneous -Tissue Removed Subcutaneous -Post Debridement (cm) - Length 3 -Post Debridement (cm) - Width 2.2 -Post Debridement (cm) - Depth 0.6 -Total Square (Post) (cm) 6.6 -Area of Debridement (cm) - Length 3 -Area of Debridement (cm) - Width 2.2 -Total Square (Area) (cm) 6.6 -Tunneling No -Undermining/Tunneling No -Circular Undermining No -Wound/Ulcer Outcome Not Healed -Ulcer Cleansing Rinsed/ Irrigated with Saline -Foul Odor after Cleansing No -Bioengineered Tissue No -Bleeding Controlled with Pressure -Treatment Response Procedure Tolerated Well -Offloading Yes -Type of Offloading Surgical Shoe -Debridement - Subq, 1st 20sq cm No -Debridement, SubQ, ea addt'l 20sq cm or part thereof -Debridement - Muscle / Fascia, 1st 20sq cm -Debridement, Muscle/Fascia, ea addt'l 20sq cm or part thereof Pain Scale: 0-10 Numeric Is Patient Pain Free? Yes WC - Nurse 3 - General Ulcer D/C NN Start: 10/17/21 10:18 Freq: Status: Active Protocol: Activity Type Activity Date Activity User E-sign Co-sign Detail Recorded Client Recorded Date Recorded By Document 10/17/21 10:50 [facility] [id number] 10/17/21 10:51 [facility] Document 10/24/21 11:40 MW Desktop 10/24/21 12:12 MW Document 10/31/21 11:44 [place] [id number] 10/31/21 11:47 [place] 10/17/21 10/24/21 10/31/21 10:50 11:40 11:44 Wound Care Nurse 3 #7 Left foot 4th toe amp site -Ulcer Cleansing Rinsed/ Rinsed/ Rinsed/ Irrigated with Irrigated with Irrigated with Saline Saline Saline -Foul Odor after Cleansing No No No -Negative Pressure Wound Therapy N/A N/A -Primary Dressing Applied Other -Other Dressing moist to dry saline wet to dry -Primary Dressing Covered/Secured with Dry Gauze & Dry Gauze & Roll Gauze, Roll Gauze, Secured with Secured with Tape Tape -Other Covering abd wet to dry abd #6- L MEDIAL FOOT -Ulcer Cleansing Rinsed/ Rinsed/ Rinsed/ Irrigated with Irrigated with Irrigated with Saline Saline Saline -Foul Odor after Cleansing No No No -Negative Pressure Wound Therapy N/A N/A -Primary Dressing Applied Other -Other Dressing moist to dry saline wet to wet to dry Abd dry -Primary Dressing Covered/Secured with Dry Gauze & Dry Gauze & Dry Gauze & Roll Gauze, Roll Gauze, Roll Gauze, Secured with Secured with Secured with Tape Tape Tape -Other Covering abd #4- L PLANTAR FOOT -Ulcer Cleansing Rinsed/ Rinsed/ Rinsed/ Irrigated with Irrigated with Irrigated with Saline Saline Saline -Foul Odor after Cleansing No No No -Negative Pressure Wound Therapy N/A N/A -Other Dressing moist to dry saline wet to wet to dry dry -Primary Dressing Covered/Secured with Dry Gauze & Dry Gauze & Dry Gauze, Roll Gauze, Roll Gauze, Secured with Other Secured with Tape Tape -Other Covering abd abd Left -Compression Wrap Mian Wrap Mian Wrap -Other mian to secure Treatment Response Procedure Procedure Tolerated Well Tolerated Well Pain Scale: 0-10 Numeric Is Patient Pain Free? Yes Yes Yes Teaching: Wound Center Dressing Your Wound -Person Taught Patient -Teaching Method Discussion -Response to teaching Verbalize understanding WC - Visit Discharge Discharge Condition Stable Stable Stable Ambulatory Status Wheelchair Walker Wheelchair Transportation Private Auto Private Auto Private Auto Accompanied by Medication Reconcilliation completed & No Yes provided to patient/care provider Clinical Summary of Care Provided Yes Yes Assessment/Plan Assessment/Plan (1) Peripheral vascular disease, unspecified: CODE(S): I73.9 - Peripheral vascular disease, unspecified (2) Non-pressure chronic ulcer of other part of left foot with necrosis of muscle: CODE(S): L97.523 - Non-pressure chronic ulcer of other part of left foot with necrosis of muscle PLAN: Patient examined evaluated, all findings reyes with patient in detail. Wounds to left foot are improving at this time. dorsal lateral foot wound improving. Plantar midfoot wound improving. Increased granulation around medial first MPJ. Patient is following with vascular surgery as an outpatient. Patient has healthy bleeding upon debridement suggestive of good wound healing potential. Patient is following with infectious disease and has him going to [facility] for IV antibiotics. The left first metatarsal phalangeal joint wound, dorsal lateral foot wound and plantar midfoot wounds were debrided down to including level of capsule and tendon of all nonviable tissue without incident. This was performed using 5 mm dermal curette. Hemostasis obtained with light compression. Patient tolerated procedure well. No anesthesia due to neuropathy. Pre and postdebridement measurements documented in nursing notes. Patient will perform daily cleansing of his foot with dressing changes consisting of Dakin's DSD no compression. Patient will maintain heel weightbearing status in cam walking boot assisted with a walker patient has a walker at home. Patient will follow up in 1 week. Patient is high risk for proximal amputation and understands this. We are awaiting approval for epi fix grafting to the plantar midfoot ulceration.
[2021-11-15 11:22] VITALS: BMI 23.8
--- NOTE | 2021-11-15 11:58 | PN.PCM_ITS ---
History of Present Illness Date of Service: 11/15/21 Chief Complaint: Left foot ulcers x 3 History of Wound: This 60-year-old male seen in the wound care center for chronic left foot ulcerations secondary to peripheral arterial disease and amputations. Patient recently underwent quadruple bypass surgery successfully at [facility]. Patient has stent placed in popliteal artery due to popliteal occlusion and left lower extremity on the hospital previously. Subsequently the next day patient had a wound debridement with amputation of the fourth ray left open with vessel loop closure to the dorsal midfoot and wet-to-dry dressings to the plantar midfoot and medial first metatarsophalangeal joints. At this time he denies any constitutional symptoms, chest pain, calf pain, or shortness of breath. Patient has been ambulating limited to his house with a surgical shoe limited to his heel. Patient received 6 weeks IV antibiotics at infusion center. He is amendable to proceed with advanced wound healing product application today if it has been approved by the insurance. Progress of Wound: Improving Objective Data Objective Data Vital Signs: Vital Signs Temp Pulse Resp BP O2 Del Method 97.3 F L 82 16 113/76 Room Air 11/07/21 11:06 11/07/21 11:06 10/31/21 10:59 11/07/21 11:06 10/31/21 10:59 Oxygen Delivery Method Room Air Weight: 77.564 kg Body Mass Index (BMI) 23.8 Physical Exam Narrative Improve vascularity left lower extremity. Dermatologic: Partial third and fourth ray resection sites with with wound demonstrates granular natured base. Plantar midfoot wound demonstrates fibrogranular base pre and postdebridement. Medial first metatarsal phalangeal joint wound is down to level of capsule there is a bleeding granular wound edge but the base of the wound is nonviable, fibrous and eschar at this time. Adjacent skin is hairless and atrophic. There is no visualized or palpable bone. Musculoskeletal: Partial amputation to left third and fourth ray. Muscular strength 5 out of 5 to bilateral lower extremity compartments No pain with calf squeeze bilateral lower extremities. Debridement Note Debridement Note Wound debrided: Medial forefoot, plantar forefoot, dorsal lateral forefoot amputation site Wound Grade/Stage: Lott grade 2 Type of Debridement: Excisional debridement Anesthesia Used: 4% Lidocaine Solution Depth: in the subcutaneous layer (plantar and dorsal lateral forefoot) and to muscle (capsule medial forefoot) Percentage of wound debrided: 100 Instrument Used: #15 blade and Forceps Tissue Removed: fibrous, devitalized subcutaneous, biofilm,slough,eschar,nonviable capsule Severity: Fat Layer Exposed Amount of bleeding with debridement: Mild Bleeding Controlled with: Pressure Patient tolerated procedure: Patient tolerated procedure well Post-Debridement Measurements and Additional Note: Post-Debridement Measurements/Treatment - Nurse 1 - General Ulcer Assessment Start: 10/17/21 10:18 Freq: Status: Active Protocol: MONICA Activity Type Activity Date Activity User E-sign Co-sign Detail Recorded Client Recorded Date Recorded By Document 10/17/21 10:18 BM [id number] 10/17/21 10:26 BMF Document 10/24/21 10:45 MW Desktop 10/24/21 10:57 MW Document 10/31/21 10:59 [facility] [id number] 10/31/21 11:13 BMF Document 11/07/21 11:06 KR [id number] 11/07/21 11:10 KR Document 11/15/21 11:22 RB [id number] 11/15/21 11:40 RB 10/17/21 10/24/21 10/31/21 10:18 10:45 10:59 - Today's Visit Information Type of service Follow-up Visit Follow-up Visit Follow-up Visit (Physician/SEWING MACHINE OPERATOR SEMIAUTOMATIC (Physician/SEWING MACHINE OPERATOR SEMIAUTOMATIC (Physician/SEWING MACHINE OPERATOR SEMIAUTOMATIC ) ) ) Arrival Mode Wheelchair Wheelchair Wheelchair Transfer Assistance None None None Accompanied by self Patient Identification Verified (Name & Yes Yes Yes ) Patient Requires Transmission-Based No No No Precautions Safety Precautions NA Height and Weight Body Mass Index (BMI) 23.8 23.8 23.8 BMI Classification Normal Normal Normal Vital Signs Temperature (97.8 F-99.1 F) 96.6 F L 97.3 F L 97.2 F L Temperature Source Temporal Temporal Temporal Pulse Rate (60-100) 73 78 75 Pulse Location Monitor Monitor Monitor Respiratory Rate (12-18) 16 18 16 Respiratory rate source Observation Observation Observation Oxygen Delivery Method Room Air Room Air Room Air Blood Pressure (90/60-120/80) 125/78 H 113/78 143/86 H Blood Pressure Mean (mm Hg) 93 89 105 Source Monitor Monitor Monitor Position Sitting Sitting Sitting Blood Pressure Location Left Arm Left Arm Left Arm History Since Last Visit- (Skip if this is Patient's initial visit) Have you changed medications since your No No No last visit? Any new allergies or adverse reactions No No No Had a fall/change in ADL's that may No No No increase risk of falls Signs or symptoms of abuse and/or No No No neglect since last visit Have you been in the hospital since your No No No last visit? Has dressing in place as prescribed Yes Yes Yes Has compression in place as prescribed N/A N/A N/A Has offloadiing in place as prescribed Yes Yes Yes Experienced any changes in pain level or No No No management Left Footwear Surgical Shoe Surgical Shoe with pressure with pressure relief insole relief insole Right Footwear Regular Shoe Regular Shoe Pain Scale: 0-10 Numeric Is Patient Pain Free? Yes Yes Yes 11/07/21 11/15/21 11:06 11:22 WC - Today's Visit Information Type of service Follow-up Visit (Physician/SEWING MACHINE OPERATOR SEMIAUTOMATIC ) Arrival Mode Wheelchair Transfer Assistance Accompanied by Patient Identification Verified (Name & Yes ) Patient Requires Transmission-Based No Precautions Safety Precautions NA Height and Weight Body Mass Index (BMI) 23.8 23.8 BMI Classification Normal Normal Vital Signs Temperature (97.8 F-99.1 F) 97.3 F L Temperature Source Temporal Pulse Rate (60-100) 82 Pulse Location Monitor Respiratory Rate (12-18) Respiratory rate source Oxygen Delivery Method Blood Pressure (90/60-120/80) 113/76 Blood Pressure Mean (mm Hg) 88 Source Monitor Position Blood Pressure Location History Since Last Visit- (Skip if this is Patient's initial visit) Have you changed medications since your No last visit? Any new allergies or adverse reactions No Had a fall/change in ADL's that may No increase risk of falls Signs or symptoms of abuse and/or No neglect since last visit Have you been in the hospital since your No last visit? Has dressing in place as prescribed Yes Has compression in place as prescribed N/A Has offloadiing in place as prescribed N/A Experienced any changes in pain level or No management Left Footwear Regular Shoe Right Footwear Regular Shoe Pain Scale: 0-10 Numeric Is Patient Pain Free? Yes Yes - Nurse 1 - General Ulcer Measurement Start: 08/02/22 10:18 Freq: Status: Active Protocol: Activity Type Activity Date Activity User E-sign Co-sign Detail Recorded Client Recorded Date Recorded By Document 10/17/21 10:18 [facility] [id number] 10/17/21 10:26 BMF Document 10/24/21 10:45 MW Desktop 10/24/21 10:57 MW Document 10/31/21 10:59 [facility] [id number] 10/31/21 11:13 BMF Document 11/07/21 11:06 KR [id number] 11/07/21 11:10 KR Document 11/15/21 11:22 RB [id number] 11/15/21 11:40 RB 10/17/21 10/24/21 10/31/21 10:18 10:45 10:59 Wound Center Nurse 1 #7 Left foot 4th toe amp site -Combined with other wound No No No -Current Size (cm) - Length 11.5 2.1 3.7 -Current Size (cm) - Width 1.6 1.2 1.5 -Current Size (cm) - Depth 1.3 0.8 0.9 -Total Square Cm 18.40 2.52 5.55 -Date of Last Picture (Recall this 10/31/21 field) -Photo Taken No No Yes -Epithelialization None Present None Present Small 1-33% -Tunneling No No No -Undermining/Tunneling No No No -Circular Undermining No No No -Change in Wound Grade/Stage -Exudate Amt Medium Medium Medium -Exudate Type Serosanguineous Serosanguineous Serosanguineous -Wound Margin Distinct, Distinct, Thickened & Outline Outline Rolled Under Attached Attached -Granulation Amt Large (67-100%) Small (1-33%) Medium (34-66%) -Granulation Quality [place] Red -Slough/Fibrin Yes Yes Yes -Necrosis Amt Small (1-33%) Large (67-100%) Medium (34-66%) -Necrotic Tissue Type Adherent Slough Adherent Slough Adherent Slough -Structure Exposed N/A -Texture (Bernadette-wound Skin Appearance) Assessed, Assessed, Assessed, Scarring Localized Edema Scarring ,Scarring -Moisture (Bernadette-wound Skin Appearance) Assessed Assessed,Dry/ Assessed Scaly -Color (Bernadette-wound Skin Appearance) Assessed Assessed Assessed -Temperature (Bernadette-wound Skin No Abnormality No Abnormality No Abnormality Appearance) (Pt Warm) (Pt Warm) (Pt Warm) -Tenderness on Palpation (Bernadette-wound No No No Skin Appearance) -Ulcer Cleansing Rinsed/ Soap and Water Rinsed/ Irrigated with Irrigated with Saline Saline -Foul Odor after Cleansing No No No -Anesthetic Used 4% Lidocaine 4% Lidocaine 4% Lidocaine Solution Solution Solution -Wound Comment(s) cande, red sutures in place #6- L MEDIAL FOOT -Combined with other wound No No No -Current Size (cm) - Length 3.5 4.0 3.6 -Current Size (cm) - Width 3.2 2.9 2.8 -Current Size (cm) - Depth 0.2 0.3 0.2 -Total Square Cm 11.20 11.60 10.08 -Date of Last Picture (Recall this 10/31/21 field) -Photo Taken No No Yes -Epithelialization None Present None Present None Present -Tunneling No No No -Undermining/Tunneling No No No -Circular Undermining No No No -Change in Wound Grade/Stage -Exudate Amt None Present Small Small -Exudate Type Serosanguineous Serosanguineous -Wound Margin Distinct, Distinct, Distinct, Outline Outline Outline Attached Attached Attached -Granulation Amt None Present (0 None Present (0 None Present (0 %) %) %) -Granulation Quality N/A -Slough/Fibrin Yes Yes Yes -Necrosis Amt Large (67-100%) Large (67-100%) Large (67-100%) -Necrotic Tissue Type Adherent Slough Adherent Slough Adherent Slough -Structure Exposed Bone N/A Bone -Texture (Bernadette-wound Skin Appearance) Assessed, Assessed,Callus Assessed Scarring -Moisture (Bernadette-wound Skin Appearance) Assessed Assessed,Dry/ Assessed Scaly -Color (Bernadette-wound Skin Appearance) Assessed Assessed Assessed -Temperature (Bernadette-wound Skin No Abnormality No Abnormality No Abnormality Appearance) (Pt Warm) (Pt Warm) (Pt Warm) -Tenderness on Palpation (Bernadette-wound No No No Skin Appearance) -Ulcer Cleansing Rinsed/ Soap and Water Rinsed/ Irrigated with Irrigated with Saline Saline -Foul Odor after Cleansing No No No -Anesthetic Used 4% Lidocaine 4% Lidocaine 4% Lidocaine Solution Solution Solution #4- L PLANTAR FOOT -Combined with other wound No No No -Current Size (cm) - Length 3.4 3.3 3.4 -Current Size (cm) - Width 3.4 2.6 2.6 -Current Size (cm) - Depth 0.9 0.7 0.5 -Total Square Cm 11.56 8.58 8.84 -Date of Last Picture (Recall this 10/31/21 field) -Photo Taken No No Yes -Epithelialization Small 1-33% None Present Small 1-33% -Tunneling No No No -Undermining/Tunneling Yes No No -Undermining/Tunneling Starts (O'clock 11 ) -Undermining/Tunneling Ends (O'clock) 12 -Maximum Distance (cm) 1 -Circular Undermining No No No -Change in Wound Grade/Stage -Exudate Amt Large Medium Medium -Exudate Type Serosanguineous Serosanguineous Serosanguineous -Wound Margin Distinct, Distinct, Distinct, Outline Outline Outline Attached Attached Attached -Granulation Amt Large (67-100%) Large (67-100%) Large (67-100%) -Granulation Quality Red Red Red -Slough/Fibrin No Yes Yes -Necrosis Amt None Present (0 Small (1-33%) Small (1-33%) %) -Necrotic Tissue Type Adherent Slough Adherent Slough -Structure Exposed N/A -Texture (Bernadette-wound Skin Appearance) Assessed, Assessed, Assessed, Scarring Localized Edema Scarring ,Scarring -Moisture (Bernadette-wound Skin Appearance) Assessed,Dry/ Assessed,Dry/ Assessed Scaly Scaly -Color (Bernadette-wound Skin Appearance) Assessed Assessed Assessed -Temperature (Bernadette-wound Skin No Abnormality No Abnormality No Abnormality Appearance) (Pt Warm) (Pt Warm) (Pt Warm) -Tenderness on Palpation (Bernadette-wound No No No Skin Appearance) -Ulcer Cleansing Rinsed/ Soap and Water Rinsed/ Irrigated with Irrigated with Saline Saline -Foul Odor after Cleansing No No No -Anesthetic Used 4% Lidocaine 4% Lidocaine 4% Lidocaine Solution Solution Solution 11/07/21 11/15/21 11:06 11:22 Wound Center Nurse 1 #7 Left foot 4th toe amp site -Combined with other wound No No -Current Size (cm) - Length 3.4 2.5 -Current Size (cm) - Width 1.5 1.4 -Current Size (cm) - Depth 1.4 1.1 -Total Square Cm 5.10 3.50 -Date of Last Picture (Recall this 11/07/21 field) -Photo Taken Yes Yes -Epithelialization None Present -Tunneling No No -Undermining/Tunneling No No -Circular Undermining No No -Change in Wound Grade/Stage No -Exudate Amt Medium Large -Exudate Type Serosanguineous Serosanguineous -Wound Margin Distinct, Thickened & Outline Rolled Under Attached -Granulation Amt Small (1-33%) Medium (34-66%) -Granulation Quality [place] -Slough/Fibrin Yes Yes -Necrosis Amt Large (67-100%) Small (1-33%) -Necrotic Tissue Type Adherent Slough Adherent Slough -Structure Exposed N/A N/A -Texture (Bernadette-wound Skin Appearance) Assessed, Assessed, Scarring Scarring -Moisture (Bernadette-wound Skin Appearance) No Abnormality, Assessed Assessed -Color (Bernadette-wound Skin Appearance) No Abnormality, Assessed Assessed -Temperature (Bernadette-wound Skin No Abnormality No Abnormality Appearance) (Pt Warm) (Pt Warm) -Tenderness on Palpation (Bernadette-wound No No Skin Appearance) -Ulcer Cleansing Rinsed/ Wound Cleanser Irrigated with Saline -Foul Odor after Cleansing No No -Anesthetic Used 5% Lidocaine 5% Lidocaine Gel Gel -Wound Comment(s) #6- L MEDIAL FOOT -Combined with other wound No No -Current Size (cm) - Length 3.3 3.8 -Current Size (cm) - Width 2.8 3 -Current Size (cm) - Depth 0.2 0.1 -Total Square Cm 9.24 11.4 -Date of Last Picture (Recall this 11/07/21 field) -Photo Taken Yes Yes -Epithelialization -Tunneling No No -Undermining/Tunneling No No -Circular Undermining No No -Change in Wound Grade/Stage No -Exudate Amt Small Large -Exudate Type Serosanguineous Serosanguineous -Wound Margin Distinct, Thickened & Outline Rolled Under Attached -Granulation Amt Small (1-33%) Medium (34-66%) -Granulation Quality [place] -Slough/Fibrin Yes Yes -Necrosis Amt Medium (34-66%) Medium (34-66%) -Necrotic Tissue Type Eschar Adherent Slough -Structure Exposed N/A N/A -Texture (Bernadette-wound Skin Appearance) Assessed, Assessed, Scarring Scarring -Moisture (Bernadette-wound Skin Appearance) No Abnormality, Assessed Assessed -Color (Bernadette-wound Skin Appearance) No Abnormality, Assessed Assessed -Temperature (Bernadette-wound Skin No Abnormality No Abnormality Appearance) (Pt Warm) (Pt Warm) -Tenderness on Palpation (Bernadette-wound No No Skin Appearance) -Ulcer Cleansing Rinsed/ Wound Cleanser Irrigated with Saline -Foul Odor after Cleansing No No -Anesthetic Used 5% Lidocaine 5% Lidocaine Gel Gel #4- L PLANTAR FOOT -Combined with other wound No No -Current Size (cm) - Length 3 3.2 -Current Size (cm) - Width 2.1 3 -Current Size (cm) - Depth 0.6 0.7 -Total Square Cm 6.3 9.6 -Date of Last Picture (Recall this 11/07/21 field) -Photo Taken Yes Yes -Epithelialization None Present -Tunneling No No -Undermining/Tunneling No No -Undermining/Tunneling Starts (O'clock ) -Undermining/Tunneling Ends (O'clock) -Maximum Distance (cm) -Circular Undermining No No -Change in Wound Grade/Stage No -Exudate Amt Medium Medium -Exudate Type Yellow/Green Serosanguineous -Wound Margin Distinct, Thickened & Outline Rolled Under Attached -Granulation Amt Small (1-33%) Medium (34-66%) -Granulation Quality [place] -Slough/Fibrin Yes Yes -Necrosis Amt None Present (0 Medium (34-66%) %) -Necrotic Tissue Type Adherent Slough -Structure Exposed N/A N/A -Texture (Bernadette-wound Skin Appearance) Assessed, Assessed, Scarring Scarring -Moisture (Bernadette-wound Skin Appearance) No Abnormality, Assessed Assessed -Color (Bernadette-wound Skin Appearance) No Abnormality, Assessed Assessed -Temperature (Bernadette-wound Skin No Abnormality No Abnormality Appearance) (Pt Warm) (Pt Warm) -Tenderness on Palpation (Bernadette-wound No No Skin Appearance) -Ulcer Cleansing Rinsed/ Wound Cleanser Irrigated with Saline -Foul Odor after Cleansing No No -Anesthetic Used 5% Lidocaine 5% Lidocaine Gel Gel WC - Nurse 2 - General Ulcer CM Notes Start: 10/17/21 10:18 Freq: Status: Active Protocol: Activity Type Activity Date Activity User E-sign Co-sign Detail Recorded Client Recorded Date Recorded By Document 10/17/21 10:35 [id number] 10/17/21 10:41 Document 10/24/21 11:23 [id number] 10/24/21 11:30 Document 10/31/21 11:22 [id number] 10/31/21 11:26 Document 11/07/21 11:33 [id number] 11/07/21 11:35 10/17/21 10/24/21 10/31/21 10:35 11:23 11:22 Wound Center Nurse 2 #7 Left foot 4th toe amp site -Time 10:38 11:23 11:23 -Correct Patient Yes Yes Yes -Correct Side, Site, Position Yes Yes Yes -Correct Procedure Yes Yes Yes -Procedure Performed Yes Yes Yes -Type of Procedure Debridement Debridement Debridement -Clinical Debridement Subcutaneous Muscle / Fascia Subcutaneous -Tissue Removed Subcutaneous Muscle Subcutaneous -Post Debridement (cm) - Length 11.6 2.2 3.8 -Post Debridement (cm) - Width 1.6 1.2 1.5 -Post Debridement (cm) - Depth 1.3 0.8 0.9 -Total Square (Post) (cm) 18.56 2.64 5.70 -Area of Debridement (cm) - Length 11.6 2.2 3.8 -Area of Debridement (cm) - Width 1.6 1.2 1.5 -Total Square (Area) (cm) 18.56 2.64 5.70 -Tunneling No No No -Undermining/Tunneling No No No -Circular Undermining No No No -Wound/Ulcer Outcome Not Healed Not Healed Not Healed -Ulcer Cleansing Rinsed/ Rinsed/ Rinsed/ Irrigated with Irrigated with Irrigated with Saline Saline Saline -Foul Odor after Cleansing No No No -Bioengineered Tissue No No No -Bleeding Controlled with Pressure Pressure Pressure -Treatment Response Procedure Procedure Procedure Tolerated Well Tolerated Well Tolerated Well -Offloading Yes No Yes -Type of Offloading Surgical Shoe Surgical Shoe -Assistive Device(s) Wheelchair Wheelchair -Debridement - Subq, 1st 20sq cm No No -Debridement - Muscle / Fascia, 1st No 20sq cm #6- L MEDIAL FOOT -Time 10:39 11:24 11:23 -Correct Patient Yes Yes Yes -Correct Side, Site, Position Yes Yes Yes -Correct Procedure Yes Yes Yes -Procedure Performed Yes Yes Yes -Type of Procedure Debridement Debridement Debridement -Clinical Debridement Subcutaneous Muscle / Fascia Subcutaneous -Tissue Removed Subcutaneous Muscle,Fascia Subcutaneous -Post Debridement (cm) - Length 3.5 4 3.7 -Post Debridement (cm) - Width 3.3 3 2.8 -Post Debridement (cm) - Depth 0.2 0.3 0.2 -Total Square (Post) (cm) 11.55 12 10.36 -Area of Debridement (cm) - Length 3.5 4 3.7 -Area of Debridement (cm) - Width 3.3 3 2.8 -Total Square (Area) (cm) 11.55 12 10.36 -Tunneling No No No -Undermining/Tunneling No No No -Circular Undermining No No No -Wound/Ulcer Outcome Not Healed Not Healed Not Healed -Ulcer Cleansing Rinsed/ Rinsed/ Rinsed/ Irrigated with Irrigated with Irrigated with Saline Saline Saline -Foul Odor after Cleansing No No No -Bioengineered Tissue No No No -Bleeding Controlled with Pressure Pressure Pressure -Treatment Response Procedure Procedure Procedure Tolerated Well Tolerated Well Tolerated Well -Offloading Yes Yes Yes -Type of Offloading Surgical Shoe Surgical Shoe Surgical Shoe -Assistive Device(s) Wheelchair, Crutches -Debridement - Subq, 1st 20sq cm No No -Debridement - Muscle / Fascia, 1st No 20sq cm #4- L PLANTAR FOOT -Time 10:40 11:24 11:24 -Correct Patient Yes Yes Yes -Correct Side, Site, Position Yes Yes Yes -Correct Procedure Yes Yes Yes -Procedure Performed Yes Yes Yes -Type of Procedure Debridement Debridement Debridement -Clinical Debridement Subcutaneous Muscle / Fascia Subcutaneous -Tissue Removed Subcutaneous Muscle,Fascia Subcutaneous -Post Debridement (cm) - Length 3.5 3.4 3.5 -Post Debridement (cm) - Width 3.5 2.6 2.6 -Post Debridement (cm) - Depth 0.9 0.8 0.5 -Total Square (Post) (cm) 12.25 8.84 9.10 -Area of Debridement (cm) - Length 3.5 3.4 3.5 -Area of Debridement (cm) - Width 3.5 2.6 2.6 -Total Square (Area) (cm) 12.25 8.84 9.10 -Tunneling No No No -Undermining/Tunneling No No No -Circular Undermining No No No -Wound/Ulcer Outcome Not Healed Not Healed Not Healed -Ulcer Cleansing Rinsed/ Rinsed/ Rinsed/ Irrigated with Irrigated with Irrigated with Saline Saline Saline -Foul Odor after Cleansing No No No -Bioengineered Tissue No No No -Bleeding Controlled with Pressure Pressure Pressure -Treatment Response Procedure Procedure Procedure Tolerated Well Tolerated Well Tolerated Well -Offloading Yes Yes Yes -Type of Offloading Surgical Shoe Surgical Shoe Surgical Shoe -Debridement - Subq, 1st 20sq cm Yes Yes -Debridement, SubQ, ea addt'l 20sq cm 2 1 or part thereof -Debridement - Muscle / Fascia, 1st Yes 20sq cm -Debridement, Muscle/Fascia, ea addt'l 1 20sq cm or part thereof Pain Scale: 0-10 Numeric Is Patient Pain Free? Yes Yes Yes 11/07/21 11:33 Wound Center Nurse 2 #7 Left foot 4th toe amp site -Time 11:33 -Correct Patient Yes -Correct Side, Site, Position Yes -Correct Procedure Yes -Procedure Performed Yes -Type of Procedure Debridement -Clinical Debridement Subcutaneous -Tissue Removed Subcutaneous -Post Debridement (cm) - Length 3.5 -Post Debridement (cm) - Width 1.5 -Post Debridement (cm) - Depth 1.4 -Total Square (Post) (cm) 5.25 -Area of Debridement (cm) - Length 3.5 -Area of Debridement (cm) - Width 1.5 -Total Square (Area) (cm) 5.25 -Tunneling No -Undermining/Tunneling No -Circular Undermining No -Wound/Ulcer Outcome Not Healed -Ulcer Cleansing Rinsed/ Irrigated with Saline -Foul Odor after Cleansing No -Bioengineered Tissue No -Bleeding Controlled with Pressure -Treatment Response Procedure Tolerated Well -Offloading Yes -Type of Offloading Surgical Shoe -Assistive Device(s) -Debridement - Subq, 1st 20sq cm No -Debridement - Muscle / Fascia, 1st 20sq cm #6- L MEDIAL FOOT -Time 11:34 -Correct Patient Yes -Correct Side, Site, Position Yes -Correct Procedure Yes -Procedure Performed Yes -Type of Procedure Debridement -Clinical Debridement Subcutaneous -Tissue Removed Subcutaneous -Post Debridement (cm) - Length 3.4 -Post Debridement (cm) - Width 2.8 -Post Debridement (cm) - Depth 0.2 -Total Square (Post) (cm) 9.52 -Area of Debridement (cm) - Length 3.4 -Area of Debridement (cm) - Width 2.8 -Total Square (Area) (cm) 9.52 -Tunneling No -Undermining/Tunneling No -Circular Undermining No -Wound/Ulcer Outcome Not Healed -Ulcer Cleansing Rinsed/ Irrigated with Saline -Foul Odor after Cleansing No -Bioengineered Tissue No -Bleeding Controlled with Pressure -Treatment Response Procedure Tolerated Well -Offloading Yes -Type of Offloading Surgical Shoe -Assistive Device(s) -Debridement - Subq, 1st 20sq cm Yes -Debridement - Muscle / Fascia, 1st 20sq cm #4- L PLANTAR FOOT -Time 11:34 -Correct Patient Yes -Correct Side, Site, Position Yes -Correct Procedure Yes -Procedure Performed Yes -Type of Procedure Debridement -Clinical Debridement Subcutaneous -Tissue Removed Subcutaneous -Post Debridement (cm) - Length 3 -Post Debridement (cm) - Width 2.2 -Post Debridement (cm) - Depth 0.6 -Total Square (Post) (cm) 6.6 -Area of Debridement (cm) - Length 3 -Area of Debridement (cm) - Width 2.2 -Total Square (Area) (cm) 6.6 -Tunneling No -Undermining/Tunneling No -Circular Undermining No -Wound/Ulcer Outcome Not Healed -Ulcer Cleansing Rinsed/ Irrigated with Saline -Foul Odor after Cleansing No -Bioengineered Tissue No -Bleeding Controlled with Pressure -Treatment Response Procedure Tolerated Well -Offloading Yes -Type of Offloading Surgical Shoe -Debridement - Subq, 1st 20sq cm No -Debridement, SubQ, ea addt'l 20sq cm or part thereof -Debridement - Muscle / Fascia, 1st 20sq cm -Debridement, Muscle/Fascia, ea addt'l 20sq cm or part thereof Pain Scale: 0-10 Numeric Is Patient Pain Free? Yes WC - Nurse 3 - General Ulcer D/C NN Start: 10/17/21 10:18 Freq: Status: Active Protocol: Activity Type Activity Date Activity User E-sign Co-sign Detail Recorded Client Recorded Date Recorded By Document 10/17/21 10:50 [facility] [id number] 10/17/21 10:51 BMF Document 10/24/21 11:40 MW Desktop 10/24/21 12:12 MW Document 10/31/21 11:44 AK [id number] 10/31/21 11:47 AK Document 11/07/21 11:51 AK [id number] 11/07/21 11:52 AK 10/17/21 10/24/21 10/31/21 10:50 11:40 11:44 Wound Care Nurse 3 #7 Left foot 4th toe amp site -Ulcer Cleansing Rinsed/ Rinsed/ Rinsed/ Irrigated with Irrigated with Irrigated with Saline Saline Saline -Foul Odor after Cleansing No No No -Negative Pressure Wound Therapy N/A N/A -Primary Dressing Applied Other -Other Dressing moist to dry saline wet to dry -Primary Dressing Covered/Secured with Dry Gauze & Dry Gauze & Roll Gauze, Roll Gauze, Secured with Secured with Tape Tape -Other Covering abd wet to dry abd #6- L MEDIAL FOOT -Ulcer Cleansing Rinsed/ Rinsed/ Rinsed/ Irrigated with Irrigated with Irrigated with Saline Saline Saline -Foul Odor after Cleansing No No No -Negative Pressure Wound Therapy N/A N/A -Primary Dressing Applied Other -Other Dressing moist to dry saline wet to wet to dry Abd dry -Primary Dressing Covered/Secured with Dry Gauze & Dry Gauze & Dry Gauze & Roll Gauze, Roll Gauze, Roll Gauze, Secured with Secured with Secured with Tape Tape Tape -Other Covering abd #4- L PLANTAR FOOT -Ulcer Cleansing Rinsed/ Rinsed/ Rinsed/ Irrigated with Irrigated with Irrigated with Saline Saline Saline -Foul Odor after Cleansing No No No -Negative Pressure Wound Therapy N/A N/A -Other Dressing moist to dry saline wet to wet to dry dry -Primary Dressing Covered/Secured with Dry Gauze & Dry Gauze & Dry Gauze, Roll Gauze, Roll Gauze, Secured with Other Secured with Tape Tape -Other Covering abd abd Left -Lotion applied to leg before compression wrap -Compression Wrap Mian Wrap Mian Wrap -Other mian to secure Treatment Response Procedure Procedure Tolerated Well Tolerated Well Pain Scale: 0-10 Numeric Is Patient Pain Free? Yes Yes Yes Teaching: Wound Center Dressing Your Wound -Person Taught Patient -Teaching Method Discussion -Response to teaching Verbalize understanding WC - Visit Discharge Discharge Condition Stable Stable Stable Ambulatory Status Wheelchair Walker Wheelchair Transportation Private Auto Private Auto Private Auto Accompanied by Medication Reconcilliation completed & No Yes provided to patient/care provider Clinical Summary of Care Provided Yes Yes 11/07/21 11:51 Wound Care Nurse 3 #7 Left foot 4th toe amp site -Ulcer Cleansing Rinsed/ Irrigated with Saline -Foul Odor after Cleansing No -Negative Pressure Wound Therapy N/A -Primary Dressing Applied -Other Dressing Daikins ABD -Primary Dressing Covered/Secured with Dry Gauze & Roll Gauze, Secured with Tape -Other Covering #6- L MEDIAL FOOT -Ulcer Cleansing Rinsed/ Irrigated with Saline -Foul Odor after Cleansing No -Negative Pressure Wound Therapy N/A -Primary Dressing Applied -Other Dressing -Primary Dressing Covered/Secured with Dry Gauze & Roll Gauze, Secured with Tape -Other Covering Daikins ABD #4- L PLANTAR FOOT -Ulcer Cleansing Rinsed/ Irrigated with Saline -Foul Odor after Cleansing No -Negative Pressure Wound Therapy N/A -Other Dressing Daikins ABD -Primary Dressing Covered/Secured with Dry Gauze & Roll Gauze, Secured with Tape -Other Covering Left -Lotion applied to leg before No compression wrap -Compression Wrap Mian Wrap -Other Treatment Response Pain Scale: 0-10 Numeric Is Patient Pain Free? Yes Teaching: Wound Center Dressing Your Wound -Person Taught -Teaching Method -Response to teaching WC - Visit Discharge Discharge Condition Stable Ambulatory Status Ambulatory, Wheelchair Transportation Private Auto Accompanied by Medication Reconcilliation completed & Yes provided to patient/care provider Clinical Summary of Care Provided Yes Assessment/Plan Assessment/Plan (1) Peripheral vascular disease, unspecified: CODE(S): I73.9 - Peripheral vascular disease, unspecified (2) Non-pressure chronic ulcer of other part of left foot with necrosis of muscle: CODE(S): L97.523 - Non-pressure chronic ulcer of other 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 Wounds to left foot are improving at this time. dorsal lateral foot wound improving. Plantar midfoot wound improving. Increased granulation around medial first MPJ and eschar / capsule debrided today.. Patient is following with vascular surgery as an outpatient. Patient has healthy bleeding upon debridement suggestive of good wound healing potential. Blood thinner use noted. Patient is following with infectious disease and has him going to infusion center for IV antibiotics. To continue as advised. The left first metatarsal phalangeal joint wound, dorsal lateral foot wound and plantar midfoot wounds were debrided down to including level of capsule and tendon of all nonviable tissue without incident. This was performed using 15 blade scalpel and forceps. Hemostasis obtained with light compression. Patient tolerated procedure well. No anesthesia due to neuropathy. Pre and postdebridement measurements documented in nursing notes. He was approved for application of advanced wound healing product and epi cord was applied according to standard protocol after verbal consent was obtained. This was applied to the plantar foot ulcer site in which insurance approval was obtained for. 100% of the product was utilized. This was further secured in place with a wound veil and Steri-Strips. A secondary dressing was applied and he will keep this clean, dry, and intact until follow-up next week. The indications, benefits, application series, and anticipated healing time was reviewed. Patient will perform daily cleansing of his foot with dressing changes consisting of Dakin's DSD no compression to non epicord application sites. Patient will maintain heel weightbearing status in cam walking boot assisted with a walker patient has a walker at home. Patient will follow up in 1 week. Patient is high risk for proximal amputation and understands this. (3) Type 2 diabetes mellitus with diabetic polyneuropathy: CODE(S): E11.42 - Type 2 diabetes mellitus with diabetic polyneuropathy
== END 2021-11-15 23:59 | disposition home or self-care (01) ==
LOC: WC 11:15
PROVIDERS: PCP Student in an Organized Health Care Education/Training Program; Visit Provider Podiatrist
DX: E11.621 Type 2 diabetes mellitus with foot ulcer (principal); L97.523 Non-pressure chronic ulcer of other part of left foot with necrosis of muscle; M86.8X7 Other osteomyelitis, ankle and foot; I73.9 Peripheral vascular disease, unspecified
CPT/HCPCS: 96367; 96365; 11042; 11043; 11045; 11046; 15275; 96368; J0878; Q4187; A4216; J3490

== ENCOUNTER → 2021-11-15 | Outpatient (CLI) | payer OTHER, SELFPAY ==
[2021-11-15 10:05] VITALS: BP 102/71; PULSE 92; RESP 16; TEMP 36.2; O2SAT 98
[2021-11-15 11:00] VITALS: BP 99/67; PULSE 84; RESP 16; O2SAT 95
== END | disposition home or self-care (01) ==
PROVIDERS: PCP Student in an Organized Health Care Education/Training Program; Referring Provider Internal Medicine Infectious Disease; Visit Provider Internal Medicine Infectious Disease
DX: M86.8X7 Other osteomyelitis, ankle and foot (principal)
CPT/HCPCS: 96365; 96367; 96368; J0878; A4216; J3490

== ENCOUNTER → 2021-11-16 | Outpatient (CLI) | payer OTHER, SELFPAY ==
[2021-11-16 10:05] VITALS: BP 98/67; PULSE 77; RESP 16; TEMP 36.3; O2SAT 100; BMI 23.0
[2021-11-16 10:40] VITALS: BP 105/67; PULSE 71; O2SAT 100
== END | disposition home or self-care (01) ==
LOC: MEDOUTP 09:55
PROVIDERS: PCP Student in an Organized Health Care Education/Training Program; Referring Provider Internal Medicine Infectious Disease; Visit Provider Internal Medicine Infectious Disease
DX: M86.8X7 Other osteomyelitis, ankle and foot (principal)
CPT/HCPCS: 96365; 96368; J0878; A4216; J3490

== ENCOUNTER → 2021-11-17 | Outpatient (CLI) | payer OTHER, SELFPAY ==
[2021-11-17 10:22] VITALS: BP 122/70; PULSE 70; RESP 16; TEMP 35.5; O2SAT 97; BMI 23.0
[2021-11-17 11:06] VITALS: BP 116/68; PULSE 72; RESP 16; O2SAT 100
== END | disposition home or self-care (01) ==
LOC: MEDOUTP 09:57
PROVIDERS: PCP Student in an Organized Health Care Education/Training Program; Referring Provider Internal Medicine Infectious Disease; Visit Provider Internal Medicine Infectious Disease
DX: M86.8X7 Other osteomyelitis, ankle and foot (principal)
CPT/HCPCS: 96365; 96367; 96368; J0878; A4216; J3490

== ENCOUNTER 2021-11-18 08:57 | Outpatient (CLI) | payer OTHER, SELFPAY ==
[2021-11-18] MEDS: 0.9% Saline Lock 10 ML Syringe IV (09:43)
== END 2021-11-18 09:48 | disposition home or self-care (01) ==
LOC: MEDOUTP 08:57 → PCU 08:59
PROVIDERS: PCP Student in an Organized Health Care Education/Training Program; Referring Provider Internal Medicine Infectious Disease; Visit Provider Internal Medicine Infectious Disease
DX: M86.8X7 Other osteomyelitis, ankle and foot (principal)
CPT/HCPCS: 96365; 96367; J0878; A4216; J3490

== ENCOUNTER 2021-11-19 08:57 | Outpatient (CLI) | payer OTHER, SELFPAY ==
[2021-11-19] MEDS: 0.9% Saline Lock 10 ML Syringe IV ×2 (09:07→09:36)
== END 2021-11-19 09:36 | disposition home or self-care (01) ==
LOC: MEDOUTP 08:58 → PCU 08:58
PROVIDERS: PCP Student in an Organized Health Care Education/Training Program; Referring Provider Internal Medicine Infectious Disease; Visit Provider Internal Medicine Infectious Disease
DX: M86.8X7 Other osteomyelitis, ankle and foot (principal)
CPT/HCPCS: 96365; 96367; J0878; A4216; J3490

== ENCOUNTER 2021-11-20 08:51 | Outpatient (CLI) | payer OTHER, SELFPAY ==
[2021-11-20] MEDS: 0.9% Saline Lock 10 ML Syringe IV ×2 (09:07→09:47)
== END 2021-11-20 09:50 | disposition home or self-care (01) ==
LOC: MEDOUTP 08:51 → MS3 08:52
PROVIDERS: PCP Student in an Organized Health Care Education/Training Program; Referring Provider Internal Medicine Infectious Disease; Visit Provider Internal Medicine Infectious Disease
DX: M86.9 Osteomyelitis, unspecified (principal)
CPT/HCPCS: 96365; 96367; J0878; J7050; A4216; J3490

== ENCOUNTER → 2021-11-21 | Outpatient (CLI) | payer OTHER, SELFPAY ==
[2021-11-21 10:10] VITALS: BP 112/67; PULSE 80; RESP 16; TEMP 36.4; O2SAT 100; BMI 23.0
[2021-11-21 10:40] LABS: Hematocrit 32.7 % (40-54); Hemoglobin 9.9 g/dL (13.0-16.5); Mean Corp Hgb Conc 30.3 g/dL (32-36); Mean Corpuscular Volume 82.6 fL (80-94); Mean Platelet Vol. 9.5 fl (6.2-12.0); Platelet Count 285 K/mm3 (150-450); RBC Distribution Width SD 45.7 fl (35.1-43.9); Red Blood Count 3.96 M/mm3 (4.6-6.2); White Blood Count 5.4 K/mm3 (4.4-11.0)
[2021-11-21 10:43] LABS: Erythrocyte Sedimentation Rate 62 mm/hr (0-20)
[2021-11-21 10:58] LABS: AST(SGOT) 11 U/L (15-37); Alanine Aminotransfer ALT/SGPT 16 U/L (16-61); Alkaline Phosphatase 93 U/L (45-117); Anion Gap 6 (5-15); BUN 23 mg/dL (7-18); BUN/Creat Ratio 25.4 RATIO (10-20); Bilirubin, Direct 0.07 mg/dL (0.00-0.30); CPK Total, Creatine Kinase 37 U/L (39-308); Calcium,Total 9.1 mg/dL (8.5-10.1); Chloride 106 mmol/L (98-107); Creatinine, Serum 0.91 mg/dL (0.70-1.30); EST Glomerular Filtration Rate 91 mL/min (>60); Est Glom Filt Rate - Afr Amer 110 mL/min (>60); Estimated Creatinine Clearance 92.53 ml/min; Globulin 4.2 g/dL (2.2-4.2); Glucose 202 mg/dL (74-106); Potassium 4.2 mmol/L (3.5-5.1); Protein, Total 7.2 g/dL (6.4-8.2); Sodium Level 138 mmol/L (136-145)
[2021-11-21 11:04] VITALS: BP 114/69; PULSE 80; RESP 16; TEMP 36.1; O2SAT 99
== END | disposition home or self-care (01) ==
LOC: MEDOUTP 09:59
PROVIDERS: PCP Student in an Organized Health Care Education/Training Program; Referring Provider Internal Medicine Infectious Disease; Visit Provider Internal Medicine Infectious Disease
DX: M86.8X7 Other osteomyelitis, ankle and foot (principal)
CPT/HCPCS: 96365; 96366; 36592; 80048; 80076; 82550; 85027; 85652; 96368; J0878; A4216; J3490

== ENCOUNTER → 2021-11-22 | Outpatient (CLI) | payer OTHER, SELFPAY ==
[2021-11-22 10:27] VITALS: BP 103/63; PULSE 80; RESP 16; TEMP 36.3; O2SAT 99
== END | disposition home or self-care (01) ==
LOC: MEDOUTP 09:56
PROVIDERS: PCP Student in an Organized Health Care Education/Training Program; Referring Provider Internal Medicine Infectious Disease; Visit Provider Internal Medicine Infectious Disease
DX: M86.8X7 Other osteomyelitis, ankle and foot (principal)
CPT/HCPCS: 96365; 96367; 96368; J0878; A4216; J3490

== ENCOUNTER → 2021-11-23 | Outpatient (CLI) | payer OTHER, SELFPAY ==
[2021-11-23 10:39] VITALS: BP 112/65; PULSE 70; RESP 16; TEMP 35.8; O2SAT 100; BMI 23.0
[2021-11-23 11:07] VITALS: BP 132/87; PULSE 85; RESP 16; TEMP 35.8; O2SAT 100
[2021-11-23 11:09] LABS: AST(SGOT) 11 U/L (15-37); Alanine Aminotransfer ALT/SGPT 14 U/L (16-61); Albumin, Serum 2.9 g/dL (3.2-5.0); Alkaline Phosphatase 88 U/L (45-117); Bilirubin, Direct 0.08 mg/dL (0.00-0.30); Cholesterol 106 mg/dL (200); Globulin 4.3 g/dL (2.2-4.2); High Density Lipoprotein 27 mg/dL; Protein, Total 7.2 g/dL (6.4-8.2); Triglycerides 144 mg/dL; Very Low Density Lipoprotein 29 mg/dL (5-40)
[2021-11-23 18:46] LABS: Xtra Tube EP Lab EXTRA TUBE
[2021-11-23 20:38] LABS: Xtra Tube EP Lab EXTRA TUBE
== END | disposition home or self-care (01) ==
LOC: MEDOUTP 09:55
PROVIDERS: Internal Medicine Cardiovascular Disease; PCP Student in an Organized Health Care Education/Training Program; Referring Provider Internal Medicine Infectious Disease; Visit Provider Internal Medicine Infectious Disease
DX: M86.8X7 Other osteomyelitis, ankle and foot (principal); E78.00 Pure hypercholesterolemia, unspecified
CPT/HCPCS: 96365; 96367; 36592; 80061; 80076; 96368; J0878; A4216; J3490

== ENCOUNTER → 2021-11-24 | Outpatient (CLI) | payer OTHER, SELFPAY ==
[2021-11-24 10:14] VITALS: BP 118/68; PULSE 74; RESP 16; TEMP 36.4; O2SAT 99
[2021-11-24 10:51] VITALS: BP 128/72; PULSE 81; RESP 16; O2SAT 100
== END | disposition home or self-care (01) ==
LOC: MEDOUTP 09:53
PROVIDERS: PCP Student in an Organized Health Care Education/Training Program; Referring Provider Internal Medicine Infectious Disease; Visit Provider Internal Medicine Infectious Disease
DX: M86.8X7 Other osteomyelitis, ankle and foot (principal)
CPT/HCPCS: 96365; 96367; 96368; J0878; A4216; J3490

== ENCOUNTER 2021-12-12 11:00 | Outpatient (RCR) | payer OTHER, SELFPAY ==
[2021-11-16 00:29] VITALS: BP 113/76; PULSE 82; RESP 16; TEMP 36.3; BMI 23.8
[2021-11-22 11:34] VITALS: BP 127/79; PULSE 73; RESP 18; TEMP 37; BMI 23.8
--- NOTE | 2021-11-22 15:08 | PN.PCM_ITS ---
History of Present Illness Date of Service: 11/22/21 Chief Complaint: Left foot ulcers x 3 History of Wound: This 61-year-old male seen in the wound care center for chronic left foot ulcerations secondary to peripheral arterial disease and amputations. Patient recently underwent quadruple bypass surgery successfully at [facility]. Patient has stent placed in popliteal artery due to popliteal occlusion and left lower extremity on the hospital previously. Subsequently the next day patient had a wound debridement with amputation of the fourth ray left open with vessel loop closure to the dorsal midfoot and wet-to-dry dressings to the plantar midfoot and medial first metatarsophalangeal joints. At this time he denies any constitutional symptoms, chest pain, calf pain, or shortness of breath. Patient received 6 weeks IV antibiotics at [facility]. He is amendable to proceed with advanced wound healing product application today if it has been approved by the insurance. Progress of Wound: all improving Objective Data Objective Data Vital Signs: Vital Signs Temp Pulse Resp BP 98.6 F 73 18 127/79 H 11/22/21 11:34 11/22/21 11:34 11/22/21 11:34 11/22/21 11:34 Weight: 77.564 kg Body Mass Index (BMI) 23.8 Physical Exam Narrative Improve vascularity left lower extremity. Dermatologic: Partial third and fourth ray resection sites with with wound d emonstrates granular natured base. Plantar midfoot wound demonstrates fibrogranular base pre and postdebridement. Medial first metatarsal phalangeal joint wound is down to level of capsule there is a bleeding granular wound edge but the base of the wound is nonviable, decrased fibrous and resolved from eschar at this time. Adjacent skin is hairless and atrophic. There is no visualized or palpable bone. Musculoskeletal: Partial amputation to left third and fourth ray. Muscular strength 5 out of 5 to bilateral lower extremity compartments No pain with calf squeeze bilateral lower extremities. Debridement Note Debridement Note Wound debrided: Medial forefoot, plantar forefoot, dorsal lateral forefoot amputation site Wound Grade/Stage: Lott grade 2 Type of Debridement: Excisional debridement Anesthesia Used: 4% Lidocaine Solution Depth: in the subcutaneous layer (plantar and dorsal lateral forefoot) and to muscle (capsule medial forefoot) Percentage of wound debrided: 100 Instrument Used: #15 blade and Forceps Tissue Removed: fibrous, devitalized subcutaneous, biofilm,slough,eschar,nonviable capsule Severity: Fat Layer Exposed Amount of bleeding with debridement: Mild Bleeding Controlled with: Pressure Patient tolerated procedure: Patient tolerated procedure well Post-Debridement Measurements and Additional Note: Post-Debridement Measurements/Treatment - Nurse 1 - General Ulcer Assessment Start: 11/22/21 11:29 Freq: Status: Active Protocol: MONICA Activity Type Activity Date Activity User E-sign Co-sign Detail Recorded Client Recorded Date Recorded By Document 11/22/21 11:34 DL [id number] 11/22/21 11:43 DL 11/22/21 11:34 - Today's Visit Information Type of service Follow-up Visit (Physician/PLANT [employer] OFFICER ) Arrival Mode Wheelchair Transfer Assistance None Patient Identification Verified (Name & Yes ) Patient Requires Transmission-Based No Precautions Finger Stick Blood Sugar(mg/dl) (if 135 indicated): Blood Sugar Stated by Patient Height and Weight Body Mass Index (BMI) 23.8 BMI Classification Normal Vital Signs Temperature (97.8 F-99.1 F) 98.6 F Temperature Source Temporal Pulse Rate (60-100) 73 Pulse Location Apical Respiratory Rate (12-18) 18 Respiratory rate source Observation Blood Pressure (90/60-120/80) 127/79 H Blood Pressure Mean (mm Hg) 95 Source Monitor History Since Last Visit- (Skip if this is Patient's initial visit) Have you changed medications since your No last visit? Any new allergies or adverse reactions No Had a fall/change in ADL's that may No increase risk of falls Signs or symptoms of abuse and/or No neglect since last visit Have you been in the hospital since your No last visit? Has dressing in place as prescribed Yes Has compression in place as prescribed N/A Has offloadiing in place as prescribed Yes Experienced any changes in pain level or No management Left Footwear Surgical Shoe with pressure relief insole Pain Scale: 0-10 Numeric Is Patient Pain Free? Yes [facility] Nurse 1 - General Ulcer Measurement Start: 11/22/21 11:29 Freq: Status: Active Protocol: Activity Type Activity Date Activity User E-sign Co-sign Detail Recorded Client Recorded Date Recorded By Document 11/22/21 11:34 DL [id number] 11/22/21 11:43 DL 11/22/21 11:34 Wound Center Nurse 1 #7 Left foot 4th toe amp site -Current Size (cm) - Length 2 -Current Size (cm) - Width 1.2 -Current Size (cm) - Depth 1 -Total Square Cm 2.4 -Photo Taken No -Exudate Amt Medium -Exudate Type Serosanguineous -Wound Margin Thickened & Rolled Under -Granulation Amt Large (67-100%) -Granulation Quality Red -Necrosis Amt Small (1-33%) -Necrotic Tissue Type Adherent Slough -Structure Exposed N/A -Texture (Bernadette-wound Skin Appearance) Scarring -Moisture (Bernadette-wound Skin Appearance) No Abnormality -Color (Bernadette-wound Skin Appearance) No Abnormality -Temperature (Bernadette-wound Skin No Abnormality Appearance) (Pt Warm) -Tenderness on Palpation (Bernadette-wound No Skin Appearance) -Ulcer Cleansing Soap and Water -Foul Odor after Cleansing No -Anesthetic Used 4% Lidocaine Solution #6- L MEDIAL FOOT -Current Size (cm) - Length 3.8 -Current Size (cm) - Width 2.8 -Current Size (cm) - Depth 0.5 -Total Square Cm 10.64 -Photo Taken No -Exudate Amt Medium -Exudate Type Serosanguineous -Wound Margin Distinct, Outline Attached -Granulation Amt Small (1-33%) -Granulation Quality [place] -Necrosis Amt Large (67-100%) -Necrotic Tissue Type Adherent Slough -Structure Exposed N/A -Texture (Bernadette-wound Skin Appearance) Scarring -Moisture (Bernadette-wound Skin Appearance) No Abnormality -Color (Bernadette-wound Skin Appearance) No Abnormality -Temperature (Bernadette-wound Skin No Abnormality Appearance) (Pt Warm) -Ulcer Cleansing Soap and Water -Foul Odor after Cleansing No -Anesthetic Used 4% Lidocaine Solution #4- L PLANTAR FOOT -Current Size (cm) - Length 3.4 -Current Size (cm) - Width 2 -Current Size (cm) - Depth 0.5 -Total Square Cm 6.8 -Photo Taken No -Undermining/Tunneling Starts (O'clock 11 ) -Undermining/Tunneling Ends (O'clock) 12 -Maximum Distance (cm) 0.8 -Exudate Amt Medium -Exudate Type Serosanguineous -Wound Margin Thickened & Rolled Under -Granulation Amt Large (67-100%) -Granulation Quality Red -Necrosis Amt Small (1-33%) -Necrotic Tissue Type Adherent Slough -Structure Exposed N/A -Texture (Bernadette-wound Skin Appearance) Scarring -Moisture (Bernadette-wound Skin Appearance) Maceration -Color (Bernadette-wound Skin Appearance) No Abnormality -Temperature (Bernadette-wound Skin No Abnormality Appearance) (Pt Warm) -Tenderness on Palpation (Bernadette-wound No Skin Appearance) -Ulcer Cleansing Soap and Water -Foul Odor after Cleansing No -Anesthetic Used 4% Lidocaine Solution WC - Nurse 2 - General Ulcer CM Notes Start: 11/22/21 11:29 Freq: Status: Active Protocol: Activity Type Activity Date Activity User E-sign Co-sign Detail Recorded Client Recorded Date Recorded By Document 11/22/21 11:59 ORESTES [id number] 11/22/21 12:05 ORESTES 11/22/21 11:59 Wound Center Nurse 2 #7 Left foot 4th toe amp site -Time 12:01 -Correct Patient Yes -Correct Side, Site, Position Yes -Correct Procedure Yes -Procedure Performed Yes -Type of Procedure Debridement -Clinical Debridement Subcutaneous -Tissue Removed Subcutaneous -Post Debridement (cm) - Length 2.1 -Post Debridement (cm) - Width 1.2 -Post Debridement (cm) - Depth 1.0 -Total Square (Post) (cm) 2.52 -Area of Debridement (cm) - Length 2.1 -Area of Debridement (cm) - Width 1.2 -Total Square (Area) (cm) 2.52 -Tunneling No -Undermining/Tunneling No -Circular Undermining No -Wound/Ulcer Outcome Not Healed -Ulcer Cleansing Rinsed/ Irrigated with Saline -Foul Odor after Cleansing No -Bioengineered Tissue No -Bleeding Controlled with Pressure -Treatment Response Procedure Tolerated Well -Offloading Yes -Type of Offloading Surgical Shoe -Debridement - Subq, 1st 20sq cm Yes #6- L MEDIAL FOOT -Time 12:03 -Correct Patient Yes -Correct Side, Site, Position Yes -Correct Procedure Yes -Procedure Performed Yes -Type of Procedure Debridement -Clinical Debridement Subcutaneous -Tissue Removed Subcutaneous -Post Debridement (cm) - Length 3.8 -Post Debridement (cm) - Width 2.9 -Post Debridement (cm) - Depth 0.5 -Total Square (Post) (cm) 11.02 -Area of Debridement (cm) - Length 3.8 -Area of Debridement (cm) - Width 2.9 -Total Square (Area) (cm) 11.02 -Tunneling No -Undermining/Tunneling No -Circular Undermining No -Wound/Ulcer Outcome Not Healed -Ulcer Cleansing Rinsed/ Irrigated with Saline -Foul Odor after Cleansing No -Bioengineered Tissue No -Bleeding Controlled with Pressure -Treatment Response Procedure Tolerated Well -Offloading Yes -Type of Offloading Surgical Shoe -Debridement - Subq, 1st 20sq cm No #4- L PLANTAR FOOT -Time 12:04 -Correct Patient Yes -Correct Side, Site, Position Yes -Correct Procedure Yes -Procedure Performed Yes -Type of Procedure Debridement -Clinical Debridement Subcutaneous -Tissue Removed Subcutaneous -Post Debridement (cm) - Length 3.5 -Post Debridement (cm) - Width 2 -Post Debridement (cm) - Depth 0.5 -Total Square (Post) (cm) 7.0 -Area of Debridement (cm) - Length 3.5 -Area of Debridement (cm) - Width 2 -Total Square (Area) (cm) 7.0 -Tunneling No -Undermining/Tunneling No -Circular Undermining No -Wound/Ulcer Outcome Not Healed -Ulcer Cleansing Rinsed/ Irrigated with Saline -Foul Odor after Cleansing No -Bioengineered Tissue Yes -Type of Bioengineered Tissue Epicord -Expiration Date 02/15/26 -Product Lot Number [id number] -Percent Used 100 -Lot number of Saline Used [id number] -Bleeding Controlled with Pressure -Treatment Response Procedure Tolerated Well -Offloading Yes -Type of Offloading Surgical Shoe -Debridement - Subq, 1st 20sq cm No -Apply Skin Sub - 1st 25 sq cm - Feet 1 -Epicord (per sq cm) 6 Pain Scale: 0-10 Numeric Is Patient Pain Free? Yes WC - Nurse 3 - General Ulcer D/C NN Start: 11/22/21 11:29 Freq: Status: Active Protocol: Activity Type Activity Date Activity User E-sign Co-sign Detail Recorded Client Recorded Date Recorded By Document 11/22/21 12:20 DL [id number] 11/22/21 12:21 DL 11/22/21 12:20 Wound Care Nurse 3 #7 Left foot 4th toe amp site -Ulcer Cleansing Rinsed/ Irrigated with Saline -Foul Odor after Cleansing No -Other Dressing Betadine -Primary Dressing Covered/Secured with Dry Gauze & Roll Gauze, Secured with Tape #6- L MEDIAL FOOT -Foul Odor after Cleansing No -Other Dressing epifix -Primary Dressing Covered/Secured with Dry Gauze & Roll Gauze, Secured with Tape #4- L PLANTAR FOOT -Foul Odor after Cleansing No -Other Dressing Epifix -Primary Dressing Covered/Secured with Dry Gauze & Roll Gauze, Secured with Tape Treatment Response Procedure Tolerated Well Pain Scale: 0-10 Numeric Is Patient Pain Free? Yes WC - Visit Discharge Discharge Condition Stable Ambulatory Status Ambulatory Transportation Private Auto Facility Type Home Health Orders Sent Yes Assessment/Plan Assessment/Plan (1) Peripheral vascular disease, unspecified: CODE(S): I73.9 - Peripheral vascular disease, unspecified (2) Non-pressure chronic ulcer of other part of left foot with necrosis of muscle: CODE(S): L97.523 - Non-pressure chronic ulcer of other 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 Wounds to left foot are improving at this time. dorsal lateral foot wound improving. Plantar midfoot wound improving. Increased granulation around medial first MPJ and fibrous and subcutaneous tissue was debrided today. Patient is following with vascular surgery as an outpatient. Patient has healthy bleeding upon debridement suggestive of good wound healing potential. Blood thinner use noted. Patient is following with infectious disease and has him going to infusion center for IV antibiotics. To continue as advised. The left first metatarsal phalangeal joint wound, dorsal lateral foot wound and plantar midfoot wounds were debrided down to including level of capsule and tendon of all nonviable tissue without incident. This was performed using 15 blade scalpel and forceps. Hemostasis obtained with light compression. Patient tolerated procedure well. No anesthesia due to neuropathy. Pre and postdebridement measurements documented in nursing notes. He was approved for application of advanced wound healing product and epi cord was applied according to standard protocol after verbal consent was obtained. This was applied to the plantar foot ulcer site in which insurance approval was obtained for. 100% of the product was utilized (epicord). This was further secured in place with a wound veil and Steri-Strips. A secondary dressing was applied and he will keep this clean, dry, and intact until follow-up next week. The indications, benefits, application series, and anticipated healing time was reviewed. Patient will perform daily cleansing of his foot with dressing changes consisting of Dakin's DSD no compression to non epicord application site (s). Patient will maintain heel weightbearing status in cam walking boot assisted with a walker patient has a walker at home. Patient will follow up in 1 week. Patient is high risk for proximal amputation and understands this. (3) Type 2 diabetes mellitus with diabetic polyneuropathy: CODE(S): E11.42 - Type 2 diabetes mellitus with diabetic polyneuropathy
[2021-11-28 09:56] VITALS: BP 112/74; PULSE 87; RESP 16; TEMP 35.9; BMI 23.8
--- NOTE | 2021-11-28 11:06 | PN.PCM_ITS ---
History of Present Illness Date of Service: 11/28/21 Chief Complaint: Left foot ulcers x 3 History of Wound: This 61-year-old male seen in the wound care center for chronic left foot ulcerations secondary to peripheral arterial disease and amputations. Patient recently underwent quadruple bypass surgery successfully at [facility]. Patient has stent placed in popliteal artery due to popliteal occlusion and left lower extremity on the hospital previously. Subsequently the next day patient had a wound debridement with amputation of the fourth ray left open with vessel loop closure to the dorsal midfoot and wet-to-dry dressings to the plantar midfoot and medial first metatarsophalangeal joints. At this time he denies any constitutional symptoms, chest pain, calf pain, or shortness of breath. Patient received 6 weeks IV antibiotics at [facility]. He is amendable to proceed with advanced wound healing product application today if it has been approved by the insurance. Progress of Wound: all improving Objective Data Objective Data Vital Signs: Vital Signs Temp Pulse Resp BP O2 Del Method 96.7 F L 87 16 112/74 Room Air 11/28/21 09:56 11/28/21 09:56 11/28/21 09:56 11/28/21 09:56 11/28/21 09:56 Oxygen Delivery Method Room Air Weight: 77.564 kg Body Mass Index (BMI) 23.8 Physical Exam Narrative Improve vascularity left lower extremity. Dermatologic: Partial third and fourth ray resection sites with with wound de monstrates granular natured base, decrease in size. Plantar midfoot wound demonstrates fibrogranular base pre and postdebridement, decrease in size. Medial first metatarsal phalangeal joint wound is down to level of capsule there is a bleeding granular wound edge but the base of the wound improving and granulating in nature. Adjacent skin is hairless and atrophic. There is no visualized or palpable bone. Musculoskeletal: Partial amputation to left third and fourth ray. Muscular strength 5 out of 5 to bilateral lower extremity compartments No pain with calf squeeze bilateral lower extremities. Debridement Note Debridement Note Post-Debridement Measurements and Additional Note: Post-Debridement Measurements/Treatment WC - Nurse 1 - General Ulcer Assessment Start: 11/22/21 11:29 Freq: Status: Active Protocol: ROYCE.[email or web address] Activity Type Activity Date Activity User E-sign Co-sign Detail Recorded Client Recorded Date Recorded By Document 11/22/21 11:34 DL [id number] 11/22/21 11:43 DL Document 11/28/21 09:56 [facility] [id number] 11/28/21 10:11 BM 11/22/21 11/28/21 11:34 09:56 - Today's Visit Information Type of service Follow-up Visit Follow-up Visit (Physician/HYDROLOGICAL TECHNICAL OFFICER (Physician/HYDROLOGICAL TECHNICAL OFFICER ) ) Arrival Mode Wheelchair Wheelchair Transfer Assistance None None Accompanied by Patient Identification Verified (Name & Yes Yes ) Patient Requires Transmission-Based No No Precautions Finger Stick Blood Sugar(mg/dl) (if 135 indicated): Blood Sugar Stated by Patient Height and Weight Body Mass Index (BMI) 23.8 23.8 BMI Classification Normal Normal Vital Signs Temperature (97.8 F-99.1 F) 98.6 F 96.7 F L Temperature Source Temporal Temporal Pulse Rate (60-100) 73 87 Pulse Location Apical Monitor Respiratory Rate (12-18) 18 16 Respiratory rate source Observation Observation Oxygen Delivery Method Room Air Blood Pressure (90/60-120/80) 127/79 H 112/74 Blood Pressure Mean (mm Hg) 95 86 Source Monitor Monitor Position Sitting Blood Pressure Location Left Arm History Since Last Visit- (Skip if this is Patient's initial visit) Have you changed medications since your No No last visit? Any new allergies or adverse reactions No No Had a fall/change in ADL's that may No No increase risk of falls Signs or symptoms of abuse and/or No No neglect since last visit Have you been in the hospital since your No No last visit? Has dressing in place as prescribed Yes Yes Has compression in place as prescribed N/A Yes Has offloadiing in place as prescribed Yes Yes Experienced any changes in pain level or No No management Left Footwear Surgical Shoe Surgical Shoe with pressure with pressure relief insole relief insole Right Footwear Regular Shoe Pain Scale: 0-10 Numeric Is Patient Pain Free? Yes Yes - Nurse 1 - General Ulcer Measurement Start: 11/22/21 11:29 Freq: Status: Active Protocol: Activity Type Activity Date Activity User E-sign Co-sign Detail Recorded Client Recorded Date Recorded By Document 11/22/21 11:34 DL [id number] 11/22/21 11:43 DL Document 11/28/21 09:56 [facility] [id number] 11/28/21 10:11 [facility] 11/22/21 11/28/21 11:34 09:56 Wound Center Nurse 1 #7 Left foot 4th toe amp site -Combined with other wound No -Current Size (cm) - Length 2 2.2 -Current Size (cm) - Width 1.2 1.3 -Current Size (cm) - Depth 1 0.5 -Total Square Cm 2.4 2.86 -Photo Taken No No -Epithelialization Small 1-33% -Tunneling No -Undermining/Tunneling No -Circular Undermining No -Exudate Amt Medium Medium -Exudate Type Serosanguineous Serosanguineous -Wound Margin Thickened & Distinct, Rolled Under Outline Attached -Granulation Amt Large (67-100%) Large (67-100%) -Granulation Quality Red Red -Slough/Fibrin Yes -Necrosis Amt Small (1-33%) Small (1-33%) -Necrotic Tissue Type Adherent Slough Adherent Slough -Structure Exposed N/A -Texture (Bernadette-wound Skin Appearance) Scarring Assessed, Scarring -Moisture (Bernadette-wound Skin Appearance) No Abnormality Assessed, Maceration -Color (Bernadette-wound Skin Appearance) No Abnormality Assessed,Palor -Temperature (Bernadette-wound Skin No Abnormality No Abnormality Appearance) (Pt Warm) (Pt Warm) -Tenderness on Palpation (Bernadette-wound No No Skin Appearance) -Ulcer Cleansing Soap and Water Soap and Water -Foul Odor after Cleansing No No -Anesthetic Used 4% Lidocaine 4% Lidocaine Solution Solution #6- L MEDIAL FOOT -Combined with other wound No -Current Size (cm) - Length 3.8 3.9 -Current Size (cm) - Width 2.8 3.2 -Current Size (cm) - Depth 0.5 0.4 -Total Square Cm 10.64 12.48 -Photo Taken No No -Epithelialization None Present -Tunneling No -Undermining/Tunneling No -Circular Undermining No -Exudate Amt Medium Medium -Exudate Type Serosanguineous Serosanguineous -Wound Margin Distinct, Distinct, Outline Outline Attached Attached -Granulation Amt Small (1-33%) Small (1-33%) -Granulation Quality [place] Red -Slough/Fibrin Yes -Necrosis Amt Large (67-100%) Large (67-100%) -Necrotic Tissue Type Adherent Slough Adherent Slough -Structure Exposed N/A -Texture (Bernadette-wound Skin Appearance) Scarring Assessed, Scarring -Moisture (Bernadette-wound Skin Appearance) No Abnormality Assessed -Color (Bernadette-wound Skin Appearance) No Abnormality Assessed -Temperature (Bernadette-wound Skin No Abnormality No Abnormality Appearance) (Pt Warm) (Pt Warm) -Tenderness on Palpation (Bernadette-wound No Skin Appearance) -Ulcer Cleansing Soap and Water Soap and Water -Foul Odor after Cleansing No No -Anesthetic Used 4% Lidocaine 4% Lidocaine Solution Solution #4- L PLANTAR FOOT -Combined with other wound No -Current Size (cm) - Length 3.4 3.1 -Current Size (cm) - Width 2 2.2 -Current Size (cm) - Depth 0.5 0.3 -Total Square Cm 6.8 6.82 -Photo Taken No Yes -Epithelialization Small 1-33% -Tunneling No -Undermining/Tunneling Yes -Undermining/Tunneling Starts (O'clock 11 11 ) -Undermining/Tunneling Ends (O'clock) 12 2 -Maximum Distance (cm) 0.8 1 -Circular Undermining No -Exudate Amt Medium Medium -Exudate Type Serosanguineous Serosanguineous -Wound Margin Thickened & Distinct, Rolled Under Outline Attached -Granulation Amt Large (67-100%) Large (67-100%) -Granulation Quality Red Red -Slough/Fibrin Yes -Necrosis Amt Small (1-33%) Small (1-33%) -Necrotic Tissue Type Adherent Slough Adherent Slough -Structure Exposed N/A -Texture (Bernadette-wound Skin Appearance) Scarring Assessed, Scarring -Moisture (Bernadette-wound Skin Appearance) Maceration Assessed, Maceration -Color (Bernadette-wound Skin Appearance) No Abnormality Assessed,Palor -Temperature (Bernadette-wound Skin No Abnormality No Abnormality Appearance) (Pt Warm) (Pt Warm) -Tenderness on Palpation (Bernadette-wound No No Skin Appearance) -Ulcer Cleansing Soap and Water Soap and Water -Foul Odor after Cleansing No No -Anesthetic Used 4% Lidocaine 4% Lidocaine Solution Solution WC - Nurse 2 - General Ulcer CM Notes Start: 11/22/21 11:29 Freq: Status: Active Protocol: Activity Type Activity Date Activity User E-sign Co-sign Detail Recorded Client Recorded Date Recorded By Document 11/22/21 11:59 [id number] 11/22/21 12:05 Document 11/28/21 10:32 [id number] 11/28/21 10:35 11/22/21 11/28/21 11:59 10:32 Wound Center Nurse 2 #7 Left foot 4th toe amp site -Time 12:01 10:32 -Correct Patient Yes Yes -Correct Side, Site, Position Yes Yes -Correct Procedure Yes Yes -Procedure Performed Yes Yes -Type of Procedure Debridement Debridement -Clinical Debridement Subcutaneous Subcutaneous -Tissue Removed Subcutaneous Subcutaneous -Post Debridement (cm) - Length 2.1 2.2 -Post Debridement (cm) - Width 1.2 1.4 -Post Debridement (cm) - Depth 1.0 0.5 -Total Square (Post) (cm) 2.52 3.08 -Area of Debridement (cm) - Length 2.1 2.2 -Area of Debridement (cm) - Width 1.2 1.4 -Total Square (Area) (cm) 2.52 3.08 -Tunneling No No -Undermining/Tunneling No No -Circular Undermining No No -Wound/Ulcer Outcome Not Healed Not Healed -Ulcer Cleansing Rinsed/ Rinsed/ Irrigated with Irrigated with Saline Saline -Foul Odor after Cleansing No No -Bioengineered Tissue No No -Bleeding Controlled with Pressure Pressure -Treatment Response Procedure Procedure Tolerated Well Tolerated Well -Offloading Yes Yes -Type of Offloading Surgical Shoe Surgical Shoe -Assistive Device(s) Wheelchair -Debridement - Subq, 1st 20sq cm Yes Yes #6- L MEDIAL FOOT -Time 12:03 10:33 -Correct Patient Yes Yes -Correct Side, Site, Position Yes Yes -Correct Procedure Yes Yes -Procedure Performed Yes Yes -Type of Procedure Debridement Debridement -Clinical Debridement Subcutaneous Subcutaneous -Tissue Removed Subcutaneous Subcutaneous -Post Debridement (cm) - Length 3.8 4 -Post Debridement (cm) - Width 2.9 3.2 -Post Debridement (cm) - Depth 0.5 0.4 -Total Square (Post) (cm) 11.02 12.8 -Area of Debridement (cm) - Length 3.8 4 -Area of Debridement (cm) - Width 2.9 3.2 -Total Square (Area) (cm) 11.02 12.8 -Tunneling No No -Undermining/Tunneling No No -Circular Undermining No No -Wound/Ulcer Outcome Not Healed Not Healed -Ulcer Cleansing Rinsed/ Rinsed/ Irrigated with Irrigated with Saline Saline -Foul Odor after Cleansing No No -Bioengineered Tissue No No -Bleeding Controlled with Pressure Pressure -Treatment Response Procedure Procedure Tolerated Well Tolerated Well -Offloading Yes Yes -Type of Offloading Surgical Shoe Surgical Shoe -Assistive Device(s) Wheelchair -Debridement - Subq, 1st 20sq cm No No #4- L PLANTAR FOOT -Time 12:04 10:33 -Correct Patient Yes Yes -Correct Side, Site, Position Yes Yes -Correct Procedure Yes Yes -Procedure Performed Yes Yes -Type of Procedure Debridement Debridement -Clinical Debridement Subcutaneous Subcutaneous -Tissue Removed Subcutaneous Subcutaneous -Post Debridement (cm) - Length 3.5 3.2 -Post Debridement (cm) - Width 2 2.2 -Post Debridement (cm) - Depth 0.5 0.3 -Total Square (Post) (cm) 7.0 7.04 -Area of Debridement (cm) - Length 3.5 3.2 -Area of Debridement (cm) - Width 2 2.2 -Total Square (Area) (cm) 7.0 7.04 -Tunneling No No -Undermining/Tunneling No No -Circular Undermining No No -Wound/Ulcer Outcome Not Healed Not Healed -Ulcer Cleansing Rinsed/ Rinsed/ Irrigated with Irrigated with Saline Saline -Foul Odor after Cleansing No No -Bioengineered Tissue Yes Yes -Type of Bioengineered Tissue Epicord Epicord -Expiration Date 02/15/26 03/18/26 -Product Lot Number [id number] -Percent Used 100 100 -Lot number of Saline Used [id number] -Bleeding Controlled with Pressure Pressure -Treatment Response Procedure Procedure Tolerated Well Tolerated Well -Offloading Yes Yes -Type of Offloading Surgical Shoe Surgical Shoe -Assistive Device(s) Wheelchair -Debridement - Subq, 1st 20sq cm No No -Apply Skin Sub - 1st 25 sq cm - Feet 1 1 -Epicord (per sq cm) 6 6 Pain Scale: 0-10 Numeric Is Patient Pain Free? Yes Yes WC - Nurse 3 - General Ulcer D/C NN Start: 11/22/21 11:29 Freq: Status: Active Protocol: Activity Type Activity Date Activity User E-sign Co-sign Detail Recorded Client Recorded Date Recorded By Document 11/22/21 12:20 DL [id number] 11/22/21 12:21 DL Document 11/28/21 10:49 [facility] [id number] 11/28/21 10:51 [facility] 11/22/21 11/28/21 12:20 10:49 Wound Care Nurse 3 #7 Left foot 4th toe amp site -Ulcer Cleansing Rinsed/ Rinsed/ Irrigated with Irrigated with Saline Saline -Foul Odor after Cleansing No No -Primary Dressing Applied Other -Other Dressing Betadine dakins -Primary Dressing Covered/Secured with Dry Gauze & Dry Gauze & Roll Gauze, Roll Gauze, Secured with Secured with Tape Tape -Other Covering drsg per mw rn #6- L MEDIAL FOOT -Foul Odor after Cleansing No -Other Dressing epifix epicord -Primary Dressing Covered/Secured with Dry Gauze & Dry Gauze & Roll Gauze, Roll Gauze, Secured with Secured with Tape Tape -Other Covering drsg per mw rn #4- L PLANTAR FOOT -Foul Odor after Cleansing No -Other Dressing Epifix epicord -Primary Dressing Covered/Secured with Dry Gauze & Dry Gauze & Roll Gauze, Roll Gauze, Secured with Secured with Tape Tape -Other Covering drsg per mw rn Left -Compression Wrap Mian Wrap -Other mian to secure Treatment Response Procedure Procedure Tolerated Well Tolerated Well Pain Scale: 0-10 Numeric Is Patient Pain Free? Yes Yes WC - Visit Discharge Discharge Condition Stable Stable Ambulatory Status Ambulatory Wheelchair Transportation Private Auto Private Auto Accompanied by Facility Type Home Health Orders Sent Yes Assessment/Plan Assessment/Plan (1) Peripheral vascular disease, unspecified: CODE(S): I73.9 - Peripheral vascular disease, unspecified (2) Non-pressure chronic ulcer of other part of left foot with necrosis of muscle: CODE(S): L97.523 - Non-pressure chronic ulcer of other 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 Wounds to left foot are improving at this time. dorsal lateral foot wound improving. Plantar midfoot wound improving. Increased granulation around medial first MPJ and fibrous and subcutaneous tissue was debrided today. Patient is following with vascular surgery as an outpatient. Patient has healthy bleeding upon debridement suggestive of good wound healing potential. Blood thinner use noted. Patient is following with infectious disease and has him going to infusion center for IV antibiotics. To continue as advised. The left first metatarsal phalangeal joint wound, dorsal lateral foot wound and plantar midfoot wounds were debrided down to including level of capsule and tendon of all nonviable tissue without incident. This was performed using 15 blade scalpel and forceps. Hemostasis obtained with light compression. Patient tolerated procedure well. No anesthesia due to neuropathy. Pre and postdebridement measurements documented in nursing notes. He was approved for application of advanced wound healing product and epi cord was applied according to standard protocol after verbal consent was obtained. This was applied to the plantar foot ulcer site in which insurance approval was obtained for. 100% of the product was utilized (epicord). This was further secured in place with a wound veil and Steri-Strips. A secondary dressing was applied and he will keep this clean, dry, and intact until follow-up next week. The indications, benefits, application series, and anticipated healing time was reviewed. Patient will perform daily cleansing of his foot with dressing changes consisting of Dakin's DSD no compression to non epicord application site (s). Patient will maintain heel weightbearing status in cam walking boot assisted with a walker patient has a walker at home. Patient will follow up in 1 week. Patient is high risk for proximal amputation and understands this. (3) Type 2 diabetes mellitus with diabetic polyneuropathy: CODE(S): E11.42 - Type 2 diabetes mellitus with diabetic polyneuropathy
[2021-12-05 10:38] VITALS: BP 127/80; PULSE 92; RESP 16; TEMP 36.4; BMI 23.8
--- NOTE | 2021-12-05 11:22 | PN.PCM_ITS ---
History of Present Illness Date of Service: 12/05/21 Chief Complaint: Left foot ulcers x 3 History of Wound: This 61-year-old male seen in the wound care center for chronic left foot ulcerations secondary to peripheral arterial disease and amputations. Patient recently underwent quadruple bypass surgery successfully at [facility]. Patient has stent placed in popliteal artery due to popliteal occlusion and left lower extremity on the hospital previously. Subsequently the next day patient had a wound debridement with amputation of the fourth ray left open with vessel loop closure to the dorsal midfoot and wet-to-dry dressings to the plantar midfoot and medial first metatarsophalangeal joints. At this time he denies any constitutional symptoms, chest pain, calf pain, or shortness of breath. Patient received 6 weeks IV antibiotics at [facility]. He is amendable to proceed with advanced wound healing product application today if it has been approved by the insurance. Progress of Wound: all improving Objective Data Objective Data Vital Signs: Vital Signs Temp Pulse Resp BP O2 Del Method 97.5 F L 92 16 127/80 H Room Air 12/05/21 10:38 12/05/21 10:38 12/05/21 10:38 12/05/21 10:38 12/05/21 10:38 Oxygen Delivery Method Room Air Weight: 77.564 kg Body Mass Index (BMI) 23.8 Physical Exam Narrative Improve vascularity left lower extremity. Dermatologic: Partial third and fourth ray resection sites with with wound d emonstrates granular natured base, decrease in size. Plantar midfoot wound demonstrates fibrogranular base pre and postdebridement, decrease in size. Medial first metatarsal phalangeal joint wound is down to level of capsule there is a bleeding granular wound edge but the base of the wound improving and granulating in nature. Adjacent skin is hairless and atrophic. There is no visualized or palpable bone. Musculoskeletal: Partial amputation to left third and fourth ray. Muscular strength 5 out of 5 to bilateral lower extremity compartments No pain with calf squeeze bilateral lower extremities. Debridement Note Debridement Note Post-Debridement Measurements and Additional Note: Post-Debridement Measurements/Treatment WC - Nurse 1 - General Ulcer Assessment Start: 11/22/21 11:29 Freq: Status: Active Protocol: ROYCE.LOWEXT Activity Type Activity Date Activity User E-sign Co-sign Detail Recorded Client Recorded Date Recorded By Document 11/22/21 11:34 DL [id number] 11/22/21 11:43 DL Document 11/28/21 09:56 [facility] [id number] 11/28/21 10:11 BMF Document 12/05/21 10:38 [facility] [id number] 12/05/21 10:51 BMF 11/22/21 11/28/21 12/05/21 11:34 09:56 10:38 WC - Today's Visit Information Type of service Follow-up Visit Follow-up Visit Follow-up Visit (Physician/PLATE SHOP HELPER (Physician/PLATE SHOP HELPER (Physician/PLATE SHOP HELPER ) ) ) Arrival Mode Wheelchair Wheelchair Wheelchair Transfer Assistance None None None Accompanied by Patient Identification Verified (Name & Yes Yes Yes ) Patient Requires Transmission-Based No No No Precautions Finger Stick Blood Sugar(mg/dl) (if 135 indicated): Blood Sugar Stated by Patient Height and Weight Body Mass Index (BMI) 23.8 23.8 23.8 BMI Classification Normal Normal Normal Vital Signs Temperature (97.8 F-99.1 F) 98.6 F 96.7 F L 97.5 F L Temperature Source Temporal Temporal Temporal Pulse Rate (60-100) 73 87 92 Pulse Location Apical Monitor Monitor Respiratory Rate (12-18) 18 16 16 Respiratory rate source Observation Observation Observation Oxygen Delivery Method Room Air Room Air Blood Pressure (90/60-120/80) 127/79 H 112/74 127/80 H Blood Pressure Mean (mm Hg) 95 86 95 Source Monitor Monitor Monitor Position Sitting Sitting Blood Pressure Location Left Arm Left Arm History Since Last Visit- (Skip if this is Patient's initial visit) Have you changed medications since your No No No last visit? Any new allergies or adverse reactions No No No Had a fall/change in ADL's that may No No No increase risk of falls Signs or symptoms of abuse and/or No No No neglect since last visit Have you been in the hospital since your No No No last visit? Has dressing in place as prescribed Yes Yes Yes Has compression in place as prescribed N/A Yes N/A Has offloadiing in place as prescribed Yes Yes Yes Experienced any changes in pain level or No No No management Left Footwear Surgical Shoe Surgical Shoe Surgical Shoe with pressure with pressure with pressure relief insole relief insole relief insole Right Footwear Regular Shoe Regular Shoe Pain Scale: 0-10 Numeric Is Patient Pain Free? Yes Yes Yes WC - Nurse 1 - General Ulcer Measurement Start: 11/22/21 11:29 Freq: Status: Active Protocol: Activity Type Activity Date Activity User E-sign Co-sign Detail Recorded Client Recorded Date Recorded By Document 11/22/21 11:34 DL [id number] 11/22/21 11:43 DL Document 11/28/21 09:56 [facility] [id number] 11/28/21 10:11 BMF Document 12/05/21 10:38 [facility] [id number] 12/05/21 10:51 BMF 11/22/21 11/28/21 12/05/21 11:34 09:56 10:38 Wound Center Nurse 1 #7 Left foot 4th toe amp site -Combined with other wound No No -Current Size (cm) - Length 2 2.2 1.4 -Current Size (cm) - Width 1.2 1.3 0.8 -Current Size (cm) - Depth 1 0.5 0.5 -Total Square Cm 2.4 2.86 1.12 -Date of Last Picture (Recall this 12/05/21 field) -Photo Taken No No Yes -Epithelialization Small 1-33% -Tunneling No No -Undermining/Tunneling No No -Circular Undermining No No -Change in Wound Grade/Stage No -Exudate Amt Medium Medium Medium -Exudate Type Serosanguineous Serosanguineous Serosanguineous -Wound Margin Thickened & Distinct, Distinct, Rolled Under Outline Outline Attached Attached -Granulation Amt Large (67-100%) Large (67-100%) Medium (34-66%) -Granulation Quality Red Red Caberfae -Slough/Fibrin Yes Yes -Necrosis Amt Small (1-33%) Small (1-33%) Medium (34-66%) -Necrotic Tissue Type Adherent Slough Adherent Slough Adherent Slough -Structure Exposed N/A N/A -Texture (Bernadette-wound Skin Appearance) Scarring Assessed, No Abnormality, Scarring Assessed -Moisture (Bernadette-wound Skin Appearance) No Abnormality Assessed, No Abnormality, Maceration Assessed -Color (Bernadette-wound Skin Appearance) No Abnormality Assessed,Palor No Abnormality, Assessed -Temperature (Bernadette-wound Skin No Abnormality No Abnormality No Abnormality Appearance) (Pt Warm) (Pt Warm) (Pt Warm) -Tenderness on Palpation (Bernadette-wound No No No Skin Appearance) -Ulcer Cleansing Soap and Water Soap and Water Soap and Water -Foul Odor after Cleansing No No No -Anesthetic Used 4% Lidocaine 4% Lidocaine 5% Lidocaine Solution Solution Gel #6- L MEDIAL FOOT -Combined with other wound No No -Current Size (cm) - Length 3.8 3.9 3.4 -Current Size (cm) - Width 2.8 3.2 1.7 -Current Size (cm) - Depth 0.5 0.4 0.4 -Total Square Cm 10.64 12.48 5.78 -Date of Last Picture (Recall this 12/05/21 field) -Photo Taken No No Yes -Epithelialization None Present None Present -Tunneling No No -Undermining/Tunneling No No -Circular Undermining No No -Change in Wound Grade/Stage No -Exudate Amt Medium Medium Medium -Exudate Type Serosanguineous Serosanguineous Serosanguineous -Wound Margin Distinct, Distinct, Distinct, Outline Outline Outline Attached Attached Attached -Granulation Amt Small (1-33%) Small (1-33%) Medium (34-66%) -Granulation Quality Caberfae Red Caberfae -Slough/Fibrin Yes Yes -Necrosis Amt Large (67-100%) Large (67-100%) Medium (34-66%) -Necrotic Tissue Type Adherent Slough Adherent Slough Adherent Slough -Structure Exposed N/A N/A -Texture (Bernadette-wound Skin Appearance) Scarring Assessed, No Abnormality, Scarring Assessed -Moisture (Bernadette-wound Skin Appearance) No Abnormality Assessed No Abnormality, Assessed -Color (Bernadette-wound Skin Appearance) No Abnormality Assessed No Abnormality, Assessed -Temperature (Bernadette-wound Skin No Abnormality No Abnormality No Abnormality Appearance) (Pt Warm) (Pt Warm) (Pt Warm) -Tenderness on Palpation (Bernadette-wound No No Skin Appearance) -Ulcer Cleansing Soap and Water Soap and Water Soap and Water -Foul Odor after Cleansing No No No -Anesthetic Used 4% Lidocaine 4% Lidocaine 5% Lidocaine Solution Solution Gel #4- L PLANTAR FOOT -Combined with other wound No No -Current Size (cm) - Length 3.4 3.1 4 -Current Size (cm) - Width 2 2.2 3.1 -Current Size (cm) - Depth 0.5 0.3 0.5 -Total Square Cm 6.8 6.82 12.4 -Photo Taken No Yes No -Epithelialization Small 1-33% -Tunneling No No -Undermining/Tunneling Yes No -Undermining/Tunneling Starts (O'clock 11 11 ) -Undermining/Tunneling Ends (O'clock) 12 2 -Maximum Distance (cm) 0.8 1 -Circular Undermining No No -Change in Wound Grade/Stage No -Exudate Amt Medium Medium Large -Exudate Type Serosanguineous Serosanguineous Serosanguineous -Wound Margin Thickened & Distinct, Distinct, Rolled Under Outline Outline Attached Attached -Granulation Amt Large (67-100%) Large (67-100%) Medium (34-66%) -Granulation Quality Red Red Caberfae -Slough/Fibrin Yes Yes -Necrosis Amt Small (1-33%) Small (1-33%) Medium (34-66%) -Necrotic Tissue Type Adherent Slough Adherent Slough Adherent Slough -Structure Exposed N/A N/A -Texture (Bernadette-wound Skin Appearance) Scarring Assessed, No Abnormality, Scarring Assessed -Moisture (Bernadette-wound Skin Appearance) Maceration Assessed, No Abnormality, Maceration Assessed -Color (Bernadette-wound Skin Appearance) No Abnormality Assessed,Palor No Abnormality, Assessed -Temperature (Bernadette-wound Skin No Abnormality No Abnormality No Abnormality Appearance) (Pt Warm) (Pt Warm) (Pt Warm) -Tenderness on Palpation (Bernadette-wound No No No Skin Appearance) -Ulcer Cleansing Soap and Water Soap and Water Soap and Water -Foul Odor after Cleansing No No -Anesthetic Used 4% Lidocaine 4% Lidocaine 5% Lidocaine Solution Solution Gel WC - Nurse 2 - General Ulcer CM Notes Start: 11/22/21 11:29 Freq: Status: Active Protocol: Activity Type Activity Date Activity User E-sign Co-sign Detail Recorded Client Recorded Date Recorded By Document 11/22/21 11:59 [id number] 11/22/21 12:05 Document 11/28/21 10:32 [id number] 11/28/21 10:35 11/22/21 11/28/21 11:59 10:32 Wound Center Nurse 2 #7 Left foot 4th toe amp site -Time 12:01 10:32 -Correct Patient Yes Yes -Correct Side, Site, Position Yes Yes -Correct Procedure Yes Yes -Procedure Performed Yes Yes -Type of Procedure Debridement Debridement -Clinical Debridement Subcutaneous Subcutaneous -Tissue Removed Subcutaneous Subcutaneous -Post Debridement (cm) - Length 2.1 2.2 -Post Debridement (cm) - Width 1.2 1.4 -Post Debridement (cm) - Depth 1.0 0.5 -Total Square (Post) (cm) 2.52 3.08 -Area of Debridement (cm) - Length 2.1 2.2 -Area of Debridement (cm) - Width 1.2 1.4 -Total Square (Area) (cm) 2.52 3.08 -Tunneling No No -Undermining/Tunneling No No -Circular Undermining No No -Wound/Ulcer Outcome Not Healed Not Healed -Ulcer Cleansing Rinsed/ Rinsed/ Irrigated with Irrigated with Saline Saline -Foul Odor after Cleansing No No -Bioengineered Tissue No No -Bleeding Controlled with Pressure Pressure -Treatment Response Procedure Procedure Tolerated Well Tolerated Well -Offloading Yes Yes -Type of Offloading Surgical Shoe Surgical Shoe -Assistive Device(s) Wheelchair -Debridement - Subq, 1st 20sq cm Yes Yes #6- L MEDIAL FOOT -Time 12:03 10:33 -Correct Patient Yes Yes -Correct Side, Site, Position Yes Yes -Correct Procedure Yes Yes -Procedure Performed Yes Yes -Type of Procedure Debridement Debridement -Clinical Debridement Subcutaneous Subcutaneous -Tissue Removed Subcutaneous Subcutaneous -Post Debridement (cm) - Length 3.8 4 -Post Debridement (cm) - Width 2.9 3.2 -Post Debridement (cm) - Depth 0.5 0.4 -Total Square (Post) (cm) 11.02 12.8 -Area of Debridement (cm) - Length 3.8 4 -Area of Debridement (cm) - Width 2.9 3.2 -Total Square (Area) (cm) 11.02 12.8 -Tunneling No No -Undermining/Tunneling No No -Circular Undermining No No -Wound/Ulcer Outcome Not Healed Not Healed -Ulcer Cleansing Rinsed/ Rinsed/ Irrigated with Irrigated with Saline Saline -Foul Odor after Cleansing No No -Bioengineered Tissue No No -Bleeding Controlled with Pressure Pressure -Treatment Response Procedure Procedure Tolerated Well Tolerated Well -Offloading Yes Yes -Type of Offloading Surgical Shoe Surgical Shoe -Assistive Device(s) Wheelchair -Debridement - Subq, 1st 20sq cm No No #4- L PLANTAR FOOT -Time 12:04 10:33 -Correct Patient Yes Yes -Correct Side, Site, Position Yes Yes -Correct Procedure Yes Yes -Procedure Performed Yes Yes -Type of Procedure Debridement Debridement -Clinical Debridement Subcutaneous Subcutaneous -Tissue Removed Subcutaneous Subcutaneous -Post Debridement (cm) - Length 3.5 3.2 -Post Debridement (cm) - Width 2 2.2 -Post Debridement (cm) - Depth 0.5 0.3 -Total Square (Post) (cm) 7.0 7.04 -Area of Debridement (cm) - Length 3.5 3.2 -Area of Debridement (cm) - Width 2 2.2 -Total Square (Area) (cm) 7.0 7.04 -Tunneling No No -Undermining/Tunneling No No -Circular Undermining No No -Wound/Ulcer Outcome Not Healed Not Healed -Ulcer Cleansing Rinsed/ Rinsed/ Irrigated with Irrigated with Saline Saline -Foul Odor after Cleansing No No -Bioengineered Tissue Yes Yes -Type of Bioengineered Tissue Epicord Epicord -Expiration Date 02/15/26 03/18/26 -Product Lot Number [id number] -Percent Used 100 100 -Lot number of Saline Used [id number] -Bleeding Controlled with Pressure Pressure -Treatment Response Procedure Procedure Tolerated Well Tolerated Well -Offloading Yes Yes -Type of Offloading Surgical Shoe Surgical Shoe -Assistive Device(s) Wheelchair -Debridement - Subq, 1st 20sq cm No No -Apply Skin Sub - 1st 25 sq cm - Feet 1 1 -Epicord (per sq cm) 6 6 Pain Scale: 0-10 Numeric Is Patient Pain Free? Yes Yes WC - Nurse 3 - General Ulcer D/C NN Start: 11/22/21 11:29 Freq: Status: Active Protocol: Activity Type Activity Date Activity User E-sign Co-sign Detail Recorded Client Recorded Date Recorded By Document 11/22/21 12:20 DL [id number] 11/22/21 12:21 DL Document 11/28/21 10:49 [facility] [id number] 11/28/21 10:51 BMF 11/22/21 11/28/21 12:20 10:49 Wound Care Nurse 3 #7 Left foot 4th toe amp site -Ulcer Cleansing Rinsed/ Rinsed/ Irrigated with Irrigated with Saline Saline -Foul Odor after Cleansing No No -Primary Dressing Applied Other -Other Dressing Betadine dakins -Primary Dressing Covered/Secured with Dry Gauze & Dry Gauze & Roll Gauze, Roll Gauze, Secured with Secured with Tape Tape -Other Covering drsg per mw rn #6- L MEDIAL FOOT -Foul Odor after Cleansing No -Other Dressing epifix epicord -Primary Dressing Covered/Secured with Dry Gauze & Dry Gauze & Roll Gauze, Roll Gauze, Secured with Secured with Tape Tape -Other Covering drsg per mw rn #4- L PLANTAR FOOT -Foul Odor after Cleansing No -Other Dressing Epifix epicord -Primary Dressing Covered/Secured with Dry Gauze & Dry Gauze & Roll Gauze, Roll Gauze, Secured with Secured with Tape Tape -Other Covering drsg per mw rn Left -Compression Wrap Mian Wrap -Other mian to secure Treatment Response Procedure Procedure Tolerated Well Tolerated Well Pain Scale: 0-10 Numeric Is Patient Pain Free? Yes Yes WC - Visit Discharge Discharge Condition Stable Stable Ambulatory Status Ambulatory Wheelchair Transportation Private Auto Private Auto Accompanied by Facility Type Home Health Orders Sent Yes Assessment/Plan Assessment/Plan (1) Peripheral vascular disease, unspecified: CODE(S): I73.9 - Peripheral vascular disease, unspecified (2) Non-pressure chronic ulcer of other part of left foot with necrosis of muscle: CODE(S): L97.523 - Non-pressure chronic ulcer of other 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 Wounds to left foot are improving at this time. dorsal lateral foot wound improving. Plantar midfoot wound improving. Increased granulation around medial first MPJ and fibrous and subcutaneous tissue was debrided today. Patient is following with vascular surgery as an outpatient. Patient has healthy bleeding upon debridement suggestive of good wound healing potential. Blood thinner use noted. Patient is following with infectious disease and has him going to infusion center for IV antibiotics. To continue as advised. The left first metatarsal phalangeal joint wound, dorsal lateral foot wound and plantar midfoot wounds were debrided down to including level of capsule and tendon of all nonviable tissue without incident. This was performed using 15 blade scalpel and forceps. Hemostasis obtained with light compression. Patient tolerated procedure well. No anesthesia due to neuropathy. Pre and postdebridement measurements documented in nursing notes. He was approved for application of advanced wound healing product and epi cord was applied according to standard protocol after verbal consent was obtained. This was applied to the plantar foot ulcer site in which insurance approval was obtained for. 100% of the product was utilized (epicord). This was further secured in place with a wound veil and Steri-Strips. A secondary dressing was applied and he will keep this clean, dry, and intact until follow-up next week. The indications, benefits, application series, and anticipated healing time was reviewed. Patient will perform daily cleansing of his foot with dressing changes consisting of Dakin's DSD no compression to non epicord application site (s). Patient will maintain heel weightbearing status in cam walking boot assisted with a walker patient has a walker at home. Patient will follow up in 1 week. Patient is high risk for proximal amputation and understands this. (3) Type 2 diabetes mellitus with diabetic polyneuropathy: CODE(S): E11.42 - Type 2 diabetes mellitus with diabetic polyneuropathy
[2021-12-12 11:09] VITALS: PULSE 66; TEMP 36.4; BMI 23.8
--- NOTE | 2021-12-12 11:48 | PCM.WC.PN ---
History of Present Illness Date of Service: 12/12/21 Chief Complaint: Left foot ulcers x 3 History of Wound: This 61-year-old male seen in the wound care center for chronic left foot ulcerations secondary to peripheral arterial disease and amputations. Patient recently underwent quadruple bypass surgery successfully at [facility]. Patient has stent placed in popliteal artery due to popliteal occlusion and left lower extremity on the hospital previously. Subsequently the next day patient had a wound debridement with amputation of the fourth ray left open with vessel loop closure to the dorsal midfoot and wet-to-dry dressings to the plantar midfoot and medial first metatarsophalangeal joints. At this time he denies any constitutional symptoms, chest pain, calf pain, or shortness of breath. Patient received 6 weeks IV antibiotics at [facility]. He is amendable to proceed with advanced wound healing product application today if it has been approved by the insurance. Progress of Wound: all improving Objective Data Objective Data Vital Signs: Vital Signs Temp Pulse Resp BP O2 Del Method 97.6 F L 66 16 127/80 H Room Air 12/12/21 11:09 12/12/21 11:09 12/05/21 10:38 12/05/21 10:38 12/05/21 10:38 Oxygen Delivery Method Room Air Weight: 77.564 kg Body Mass Index (BMI) 23.8 Physical Exam Narrative Improve vascularity left lower extremity. Dermatologic: Partial third and fourth ray resection sites with with wound demonstrates granular natured base, decrease in size. Plantar midfoot wound demonstrates fibrogranular base pre and postdebridement, decrease in size. Medial first metatarsal phalangeal joint wound is down to level of capsule there is a bleeding granular wound edge but the base of the wound improving and granulating in nature. Adjacent skin is hairless and atrophic. There is no visualized or palpable bone. New wound to dorsal second digit. All other wounds improving at this time. Wound to second digit at apex of hammertoe formation on the left foot. Demonstrates granular base no signs of infection deep probing or undermining. Musculoskeletal: Partial amputation to left third and fourth ray. Muscular strength 5 out of 5 to bilateral lower extremity compartments No pain with calf squeeze bilateral lower extremities. Debridement Note Debridement Note Post-Debridement Measurements and Additional Note: Post-Debridement Measurements/Treatment WC - Nurse 1 - General Ulcer Assessment Start: 11/22/21 11:29 Freq: Status: Active Protocol: WC.LOWEXT Activity Type Activity Date Activity User E-sign Co-sign Detail Recorded Client Recorded Date Recorded By Document 11/22/21 11:34 DL [id number] 11/22/21 11:43 DL Document 11/28/21 09:56 [facility] [id number] 11/28/21 10:11 BM Document 12/05/21 10:38 [facility] [id number] 12/05/21 10:51 BM Document 12/12/21 11:09 [place] [id number] 12/12/21 11:25 AK 11/22/21 11/28/21 12/05/21 11:34 09:56 10:38 WC - Today's Visit Information Type of service Follow-up Visit Follow-up Visit Follow-up Visit (Physician/BOATING SAFETY OFFICER (Physician/BOATING SAFETY OFFICER (Physician/BOATING SAFETY OFFICER ) ) ) Arrival Mode Wheelchair Wheelchair Wheelchair Transfer Assistance None None None Accompanied by Patient Identification Verified (Name & Yes Yes Yes ) Patient Requires Transmission-Based No No No Precautions Safety Precautions Finger Stick Blood Sugar(mg/dl) (if 135 indicated): Blood Sugar Stated by Patient Height and Weight Body Mass Index (BMI) 23.8 23.8 23.8 BMI Classification Normal Normal Normal Vital Signs Temperature (97.8 F-99.1 F) 98.6 F 96.7 F L 97.5 F L Temperature Source Temporal Temporal Temporal Pulse Rate (60-100) 73 87 92 Pulse Location Apical Monitor Monitor Respiratory Rate (12-18) 18 16 16 Respiratory rate source Observation Observation Observation Oxygen Delivery Method Room Air Room Air Blood Pressure (90/60-120/80) 127/79 H 112/74 127/80 H Blood Pressure Mean (mm Hg) 95 86 95 Source Monitor Monitor Monitor Position Sitting Sitting Blood Pressure Location Left Arm Left Arm History Since Last Visit- (Skip if this is Patient's initial visit) Have you changed medications since your No No No last visit? Any new allergies or adverse reactions No No No Had a fall/change in ADL's that may No No No increase risk of falls Signs or symptoms of abuse and/or No No No neglect since last visit Have you been in the hospital since your No No No last visit? Has dressing in place as prescribed Yes Yes Yes Has compression in place as prescribed N/A Yes N/A Has offloadiing in place as prescribed Yes Yes Yes Experienced any changes in pain level or No No No management Left Footwear Surgical Shoe Surgical Shoe Surgical Shoe with pressure with pressure with pressure relief insole relief insole relief insole Right Footwear Regular Shoe Regular Shoe Pain Scale: 0-10 Numeric Is Patient Pain Free? Yes Yes Yes 12/12/21 11:09 - Today's Visit Information Type of service Follow-up Visit (Physician/BOATING SAFETY OFFICER ) Arrival Mode Ambulatory Transfer Assistance Accompanied by Patient Identification Verified (Name & Yes ) Patient Requires Transmission-Based No Precautions Safety Precautions NA Finger Stick Blood Sugar(mg/dl) (if indicated): Blood Sugar Height and Weight Body Mass Index (BMI) 23.8 BMI Classification Normal Vital Signs Temperature (97.8 F-99.1 F) 97.6 F L Temperature Source Temporal Pulse Rate (60-100) 66 Pulse Location Monitor Respiratory Rate (12-18) Respiratory rate source Oxygen Delivery Method Blood Pressure (90/60-120/80) Blood Pressure Mean (mm Hg) Source Position Blood Pressure Location History Since Last Visit- (Skip if this is Patient's initial visit) Have you changed medications since your No last visit? Any new allergies or adverse reactions No Had a fall/change in ADL's that may No increase risk of falls Signs or symptoms of abuse and/or No neglect since last visit Have you been in the hospital since your No last visit? Has dressing in place as prescribed Yes Has compression in place as prescribed Yes Has offloadiing in place as prescribed N/A Experienced any changes in pain level or No management Left Footwear Regular Shoe Right Footwear Regular Shoe Pain Scale: 0-10 Numeric Is Patient Pain Free? Yes - Nurse 1 - General Ulcer Measurement Start: 11/22/21 11:29 Freq: Status: Active Protocol: Activity Type Activity Date Activity User E-sign Co-sign Detail Recorded Client Recorded Date Recorded By Document 11/22/21 11:34 DL [id number] 11/22/21 11:43 DL Document 11/28/21 09:56 [facility] [id number] 11/28/21 10:11 BM Document 12/05/21 10:38 [facility] [id number] 12/05/21 10:51 BMF Document 12/12/21 11:09 MO [id number] 12/12/21 11:25 AK 11/22/21 11/28/21 12/05/21 11:34 09:56 10:38 Wound Center Nurse 1 #7 Left foot 4th toe amp site -Combined with other wound No No -Current Size (cm) - Length 2 2.2 1.4 -Current Size (cm) - Width 1.2 1.3 0.8 -Current Size (cm) - Depth 1 0.5 0.5 -Total Square Cm 2.4 2.86 1.12 -Date of Last Picture (Recall this 12/05/21 field) -Photo Taken No No Yes -Epithelialization Small 1-33% -Tunneling No No -Undermining/Tunneling No No -Circular Undermining No No -Change in Wound Grade/Stage No -Exudate Amt Medium Medium Medium -Exudate Type Serosanguineous Serosanguineous Serosanguineous -Wound Margin Thickened & Distinct, Distinct, Rolled Under Outline Outline Attached Attached -Granulation Amt Large (67-100%) Large (67-100%) Medium (34-66%) -Granulation Quality [place] -Slough/Fibrin Yes Yes -Necrosis Amt Small (1-33%) Small (1-33%) Medium (34-66%) -Necrotic Tissue Type Adherent Slough Adherent Slough Adherent Slough -Structure Exposed N/A N/A -Texture (Bernadette-wound Skin Appearance) Scarring Assessed, No Abnormality, Scarring Assessed -Moisture (Bernadette-wound Skin Appearance) No Abnormality Assessed, No Abnormality, Maceration Assessed -Color (Bernadette-wound Skin Appearance) No Abnormality Assessed,Palor No Abnormality, Assessed -Temperature (Bernadette-wound Skin No Abnormality No Abnormality No Abnormality Appearance) (Pt Warm) (Pt Warm) (Pt Warm) -Tenderness on Palpation (Bernadette-wound No No No Skin Appearance) -Ulcer Cleansing Soap and Water Soap and Water Soap and Water -Foul Odor after Cleansing No No No -Anesthetic Used 4% Lidocaine 4% Lidocaine 5% Lidocaine Solution Solution Gel #6- L MEDIAL FOOT -Combined with other wound No No -Current Size (cm) - Length 3.8 3.9 3.4 -Current Size (cm) - Width 2.8 3.2 1.7 -Current Size (cm) - Depth 0.5 0.4 0.4 -Total Square Cm 10.64 12.48 5.78 -Date of Last Picture (Recall this 12/05/21 field) -Photo Taken No No Yes -Epithelialization None Present None Present -Tunneling No No -Undermining/Tunneling No No -Circular Undermining No No -Change in Wound Grade/Stage No -Exudate Amt Medium Medium Medium -Exudate Type Serosanguineous Serosanguineous Serosanguineous -Wound Margin Distinct, Distinct, Distinct, Outline Outline Outline Attached Attached Attached -Granulation Amt Small (1-33%) Small (1-33%) Medium (34-66%) -Granulation Quality [place] -Slough/Fibrin Yes Yes -Necrosis Amt Large (67-100%) Large (67-100%) Medium (34-66%) -Necrotic Tissue Type Adherent Slough Adherent Slough Adherent Slough -Structure Exposed N/A N/A -Texture (Bernadette-wound Skin Appearance) Scarring Assessed, No Abnormality, Scarring Assessed -Moisture (Bernadette-wound Skin Appearance) No Abnormality Assessed No Abnormality, Assessed -Color (Bernadette-wound Skin Appearance) No Abnormality Assessed No Abnormality, Assessed -Temperature (Bernadette-wound Skin No Abnormality No Abnormality No Abnormality Appearance) (Pt Warm) (Pt Warm) (Pt Warm) -Tenderness on Palpation (Bernadette-wound No No Skin Appearance) -Ulcer Cleansing Soap and Water Soap and Water Soap and Water -Foul Odor after Cleansing No No No -Anesthetic Used 4% Lidocaine 4% Lidocaine 5% Lidocaine Solution Solution Gel #4- L PLANTAR FOOT -Combined with other wound No No -Current Size (cm) - Length 3.4 3.1 4 -Current Size (cm) - Width 2 2.2 3.1 -Current Size (cm) - Depth 0.5 0.3 0.5 -Total Square Cm 6.8 6.82 12.4 -Date of Last Picture (Recall this field) -Photo Taken No Yes No -Epithelialization Small 1-33% -Tunneling No No -Undermining/Tunneling Yes No -Undermining/Tunneling Starts (O'clock 11 11 ) -Undermining/Tunneling Ends (O'clock) 12 2 -Maximum Distance (cm) 0.8 1 -Circular Undermining No No -Change in Wound Grade/Stage No -Exudate Amt Medium Medium Large -Exudate Type Serosanguineous Serosanguineous Serosanguineous -Wound Margin Thickened & Distinct, Distinct, Rolled Under Outline Outline Attached Attached -Granulation Amt Large (67-100%) Large (67-100%) Medium (34-66%) -Granulation Quality [place] -Slough/Fibrin Yes Yes -Necrosis Amt Small (1-33%) Small (1-33%) Medium (34-66%) -Necrotic Tissue Type Adherent Slough Adherent Slough Adherent Slough -Structure Exposed N/A N/A -Texture (Bernadette-wound Skin Appearance) Scarring Assessed, No Abnormality, Scarring Assessed -Moisture (Bernadette-wound Skin Appearance) Maceration Assessed, No Abnormality, Maceration Assessed -Color (Bernadette-wound Skin Appearance) No Abnormality Assessed,Palor No Abnormality, Assessed -Temperature (Bernadette-wound Skin No Abnormality No Abnormality No Abnormality Appearance) (Pt Warm) (Pt Warm) (Pt Warm) -Tenderness on Palpation (Bernadette-wound No No No Skin Appearance) -Ulcer Cleansing Soap and Water Soap and Water Soap and Water -Foul Odor after Cleansing No No -Anesthetic Used 4% Lidocaine 4% Lidocaine 5% Lidocaine Solution Solution Gel 12/12/21 11:09 Wound Center Nurse 1 #7 Left foot 4th toe amp site -Combined with other wound No -Current Size (cm) - Length 1 -Current Size (cm) - Width 0.8 -Current Size (cm) - Depth 0.2 -Total Square Cm 0.8 -Date of Last Picture (Recall this 12/12/21 field) -Photo Taken Yes -Epithelialization -Tunneling No -Undermining/Tunneling No -Circular Undermining No -Change in Wound Grade/Stage No -Exudate Amt Medium -Exudate Type Serosanguineous -Wound Margin Distinct, Outline Attached -Granulation Amt None Present (0 %) -Granulation Quality N/A -Slough/Fibrin No -Necrosis Amt Large (67-100%) -Necrotic Tissue Type Adherent Slough -Structure Exposed N/A -Texture (Bernadette-wound Skin Appearance) No Abnormality, Assessed -Moisture (Bernadette-wound Skin Appearance) No Abnormality, Assessed -Color (Bernadette-wound Skin Appearance) No Abnormality, Assessed -Temperature (Bernadette-wound Skin No Abnormality Appearance) (Pt Warm) -Tenderness on Palpation (Bernadette-wound No Skin Appearance) -Ulcer Cleansing Rinsed/ Irrigated with Saline -Foul Odor after Cleansing No -Anesthetic Used 5% Lidocaine Gel #6- L MEDIAL FOOT -Combined with other wound No -Current Size (cm) - Length 4.2 -Current Size (cm) - Width 3.8 -Current Size (cm) - Depth 0.2 -Total Square Cm 15.96 -Date of Last Picture (Recall this 12/12/21 field) -Photo Taken Yes -Epithelialization -Tunneling No -Undermining/Tunneling No -Circular Undermining No -Change in Wound Grade/Stage No -Exudate Amt Large -Exudate Type Yellow/Green -Wound Margin Distinct, Outline Attached -Granulation Amt None Present (0 %) -Granulation Quality N/A -Slough/Fibrin Yes -Necrosis Amt Large (67-100%) -Necrotic Tissue Type Adherent Slough -Structure Exposed N/A -Texture (Bernadette-wound Skin Appearance) No Abnormality, Assessed -Moisture (Bernadette-wound Skin Appearance) No Abnormality, Assessed -Color (Bernadette-wound Skin Appearance) No Abnormality, Assessed -Temperature (Bernadette-wound Skin No Abnormality Appearance) (Pt Warm) -Tenderness on Palpation (Bernadette-wound No Skin Appearance) -Ulcer Cleansing Rinsed/ Irrigated with Saline -Foul Odor after Cleansing No -Anesthetic Used 5% Lidocaine Gel #4- L PLANTAR FOOT -Combined with other wound No -Current Size (cm) - Length 2.9 -Current Size (cm) - Width 1.5 -Current Size (cm) - Depth 0.2 -Total Square Cm 4.35 -Date of Last Picture (Recall this 12/12/21 field) -Photo Taken Yes -Epithelialization -Tunneling No -Undermining/Tunneling No -Undermining/Tunneling Starts (O'clock ) -Undermining/Tunneling Ends (O'clock) -Maximum Distance (cm) -Circular Undermining No -Change in Wound Grade/Stage No -Exudate Amt Small -Exudate Type Serosanguineous -Wound Margin Distinct, Outline Attached -Granulation Amt Medium (34-66%) -Granulation Quality [place] -Slough/Fibrin Yes -Necrosis Amt Medium (34-66%) -Necrotic Tissue Type Adherent Slough -Structure Exposed N/A -Texture (Bernadette-wound Skin Appearance) No Abnormality, Assessed -Moisture (Bernadette-wound Skin Appearance) No Abnormality, Assessed -Color (Bernadette-wound Skin Appearance) No Abnormality, Assessed -Temperature (Bernadette-wound Skin No Abnormality Appearance) (Pt Warm) -Tenderness on Palpation (Bernadette-wound No Skin Appearance) -Ulcer Cleansing Rinsed/ Irrigated with Saline -Foul Odor after Cleansing No -Anesthetic Used 5% Lidocaine Gel WC - Nurse 2 - General Ulcer CM Notes Start: 11/22/21 11:29 Freq: Status: Active Protocol: Activity Type Activity Date Activity User E-sign Co-sign Detail Recorded Client Recorded Date Recorded By Document 11/22/21 11:59 [id number] 11/22/21 12:05 Document 11/28/21 10:32 [id number] 11/28/21 10:35 Document 12/05/21 11:16 [id number] 12/05/21 11:22 Document 12/12/21 11:39 [id number] 12/12/21 11:48 11/22/21 11/28/21 12/05/21 11:59 10:32 11:16 Wound Center Nurse 2 8-left 2nd toe ulcer -Time -Correct Patient -Correct Side, Site, Position -Correct Procedure -Procedure Performed -Type of Procedure -Clinical Debridement -Tissue Removed -Post Debridement (cm) - Length -Post Debridement (cm) - Width -Post Debridement (cm) - Depth -Total Square (Post) (cm) -Area of Debridement (cm) - Length -Area of Debridement (cm) - Width -Total Square (Area) (cm) -Tunneling -Undermining/Tunneling -Circular Undermining -Wound/Ulcer Outcome -Ulcer Cleansing -Foul Odor after Cleansing -Bioengineered Tissue -Bleeding Controlled with -Treatment Response -Offloading -Type of Offloading -Debridement - Subq, 1st 20sq cm #7 Left foot 4th toe amp site -Time 12:01 10:32 11:19 -Correct Patient Yes Yes Yes -Correct Side, Site, Position Yes Yes Yes -Correct Procedure Yes Yes Yes -Procedure Performed Yes Yes Yes -Type of Procedure Debridement Debridement Debridement -Clinical Debridement Subcutaneous Subcutaneous Subcutaneous -Tissue Removed Subcutaneous Subcutaneous Subcutaneous -Post Debridement (cm) - Length 2.1 2.2 1.5 -Post Debridement (cm) - Width 1.2 1.4 0.8 -Post Debridement (cm) - Depth 1.0 0.5 0.5 -Total Square (Post) (cm) 2.52 3.08 1.20 -Area of Debridement (cm) - Length 2.1 2.2 1.5 -Area of Debridement (cm) - Width 1.2 1.4 0.8 -Total Square (Area) (cm) 2.52 3.08 1.20 -Tunneling No No No -Undermining/Tunneling No No No -Circular Undermining No No No -Wound/Ulcer Outcome Not Healed Not Healed Not Healed -Ulcer Cleansing Rinsed/ Rinsed/ Rinsed/ Irrigated with Irrigated with Irrigated with Saline Saline Saline -Foul Odor after Cleansing No No No -Bioengineered Tissue No No No -Bleeding Controlled with Pressure Pressure Pressure -Treatment Response Procedure Procedure Procedure Tolerated Well Tolerated Well Tolerated Well -Offloading Yes Yes Yes -Type of Offloading Surgical Shoe Surgical Shoe Surgical Shoe -Assistive Device(s) Wheelchair Wheelchair -Debridement - Subq, 1st 20sq cm Yes Yes Yes #6- L MEDIAL FOOT -Time 12:03 10:33 11:19 -Correct Patient Yes Yes Yes -Correct Side, Site, Position Yes Yes Yes -Correct Procedure Yes Yes Yes -Procedure Performed Yes Yes Yes -Type of Procedure Debridement Debridement Debridement -Clinical Debridement Subcutaneous Subcutaneous Subcutaneous -Tissue Removed Subcutaneous Subcutaneous Subcutaneous -Post Debridement (cm) - Length 3.8 4 3.5 -Post Debridement (cm) - Width 2.9 3.2 1.8 -Post Debridement (cm) - Depth 0.5 0.4 0.4 -Total Square (Post) (cm) 11.02 12.8 6.30 -Area of Debridement (cm) - Length 3.8 4 3.5 -Area of Debridement (cm) - Width 2.9 3.2 1.8 -Total Square (Area) (cm) 11.02 12.8 6.30 -Tunneling No No No -Undermining/Tunneling No No No -Circular Undermining No No No -Wound/Ulcer Outcome Not Healed Not Healed Not Healed -Ulcer Cleansing Rinsed/ Rinsed/ Rinsed/ Irrigated with Irrigated with Irrigated with Saline Saline Saline -Foul Odor after Cleansing No No No -Bioengineered Tissue No No No -Bleeding Controlled with Pressure Pressure Pressure -Treatment Response Procedure Procedure Procedure Tolerated Well Tolerated Well Tolerated Well -Offloading Yes Yes Yes -Type of Offloading Surgical Shoe Surgical Shoe Surgical Shoe -Assistive Device(s) Wheelchair -Debridement - Subq, 1st 20sq cm No No No #4- L PLANTAR FOOT -Time 12:04 10:33 11:20 -Correct Patient Yes Yes Yes -Correct Side, Site, Position Yes Yes Yes -Correct Procedure Yes Yes Yes -Procedure Performed Yes Yes Yes -Type of Procedure Debridement Debridement Debridement -Clinical Debridement Subcutaneous Subcutaneous Subcutaneous -Tissue Removed Subcutaneous Subcutaneous Subcutaneous -Post Debridement (cm) - Length 3.5 3.2 4.1 -Post Debridement (cm) - Width 2 2.2 3.2 -Post Debridement (cm) - Depth 0.5 0.3 0.5 -Total Square (Post) (cm) 7.0 7.04 13.12 -Area of Debridement (cm) - Length 3.5 3.2 4.1 -Area of Debridement (cm) - Width 2 2.2 3.2 -Total Square (Area) (cm) 7.0 7.04 13.12 -Tunneling No No No -Undermining/Tunneling No No No -Circular Undermining No No No -Wound/Ulcer Outcome Not Healed Not Healed Not Healed -Ulcer Cleansing Rinsed/ Rinsed/ Rinsed/ Irrigated with Irrigated with Irrigated with Saline Saline Saline -Foul Odor after Cleansing No No No -Bioengineered Tissue Yes Yes Yes -Type of Bioengineered Tissue Epicord Epicord Epicord -Expiration Date 02/15/26 03/18/26 03/18/26 -Product Lot Number [id number] -Percent Used 100 100 100 -Lot number of Saline Used [id number] -Bleeding Controlled with Pressure Pressure Pressure -Treatment Response Procedure Procedure Procedure Tolerated Well Tolerated Well Tolerated Well -Offloading Yes Yes Yes -Type of Offloading Surgical Shoe Surgical Shoe Surgical Shoe -Assistive Device(s) Wheelchair -Debridement - Subq, 1st 20sq cm No No No -Apply Skin Sub - 1st 25 sq cm - Feet 1 1 1 -Epicord (per sq cm) 6 6 6 Pain Scale: 0-10 Numeric Is Patient Pain Free? Yes Yes Yes 12/12/21 11:39 Wound Center Nurse 2 8-left 2nd toe ulcer -Time 11:47 -Correct Patient Yes -Correct Side, Site, Position Yes -Correct Procedure Yes -Procedure Performed Yes -Type of Procedure Debridement -Clinical Debridement Subcutaneous -Tissue Removed Subcutaneous -Post Debridement (cm) - Length 0.3 -Post Debridement (cm) - Width 0.2 -Post Debridement (cm) - Depth 0.1 -Total Square (Post) (cm) 0.06 -Area of Debridement (cm) - Length 0.3 -Area of Debridement (cm) - Width 0.2 -Total Square (Area) (cm) 0.06 -Tunneling No -Undermining/Tunneling No -Circular Undermining No -Wound/Ulcer Outcome Not Healed -Ulcer Cleansing Rinsed/ Irrigated with Saline -Foul Odor after Cleansing No -Bioengineered Tissue No -Bleeding Controlled with Pressure -Treatment Response Procedure Tolerated Well -Offloading Yes -Type of Offloading Surgical Shoe -Debridement - Subq, 1st 20sq cm No #7 Left foot 4th toe amp site -Time 11:40 -Correct Patient Yes -Correct Side, Site, Position Yes -Correct Procedure Yes -Procedure Performed Yes -Type of Procedure Debridement -Clinical Debridement Subcutaneous -Tissue Removed Subcutaneous -Post Debridement (cm) - Length 1.0 -Post Debridement (cm) - Width 0.9 -Post Debridement (cm) - Depth 0.2 -Total Square (Post) (cm) 0.90 -Area of Debridement (cm) - Length 1.0 -Area of Debridement (cm) - Width 0.9 -Total Square (Area) (cm) 0.90 -Tunneling No -Undermining/Tunneling No -Circular Undermining No -Wound/Ulcer Outcome Not Healed -Ulcer Cleansing Rinsed/ Irrigated with Saline -Foul Odor after Cleansing No -Bioengineered Tissue No -Bleeding Controlled with Pressure -Treatment Response Procedure Tolerated Well -Offloading Yes -Type of Offloading Surgical Shoe -Assistive Device(s) -Debridement - Subq, 1st 20sq cm Yes #6- L MEDIAL FOOT -Time 11:40 -Correct Patient Yes -Correct Side, Site, Position Yes -Correct Procedure Yes -Procedure Performed Yes -Type of Procedure Debridement -Clinical Debridement Subcutaneous -Tissue Removed Subcutaneous -Post Debridement (cm) - Length 4.4 -Post Debridement (cm) - Width 3.8 -Post Debridement (cm) - Depth 0.3 -Total Square (Post) (cm) 16.72 -Area of Debridement (cm) - Length 4.4 -Area of Debridement (cm) - Width 3.8 -Total Square (Area) (cm) 16.72 -Tunneling No -Undermining/Tunneling No -Circular Undermining No -Wound/Ulcer Outcome Not Healed -Ulcer Cleansing Rinsed/ Irrigated with Saline -Foul Odor after Cleansing No -Bioengineered Tissue No -Bleeding Controlled with Pressure -Treatment Response Procedure Tolerated Well -Offloading Yes -Type of Offloading Surgical Shoe -Assistive Device(s) -Debridement - Subq, 1st 20sq cm No #4- L PLANTAR FOOT -Time 11:40 -Correct Patient Yes -Correct Side, Site, Position Yes -Correct Procedure Yes -Procedure Performed Yes -Type of Procedure Debridement -Clinical Debridement Subcutaneous -Tissue Removed Subcutaneous -Post Debridement (cm) - Length 3 -Post Debridement (cm) - Width 1.5 -Post Debridement (cm) - Depth 0.2 -Total Square (Post) (cm) 4.5 -Area of Debridement (cm) - Length 3.0 -Area of Debridement (cm) - Width 1.5 -Total Square (Area) (cm) 4.50 -Tunneling No -Undermining/Tunneling No -Circular Undermining No -Wound/Ulcer Outcome Not Healed -Ulcer Cleansing Rinsed/ Irrigated with Saline -Foul Odor after Cleansing No -Bioengineered Tissue Yes -Type of Bioengineered Tissue Epicord -Expiration Date 06/16/26 -Product Lot Number [id number] -Percent Used 100 -Lot number of Saline Used [id number] -Bleeding Controlled with Pressure -Treatment Response Procedure Tolerated Well -Offloading Yes -Type of Offloading Surgical Shoe -Assistive Device(s) -Debridement - Subq, 1st 20sq cm No -Apply Skin Sub - 1st 25 sq cm - Feet 1 -Epicord (per sq cm) 6 Pain Scale: 0-10 Numeric Is Patient Pain Free? Yes WC - Nurse 3 - General Ulcer D/C NN Start: 11/22/21 11:29 Freq: Status: Active Protocol: Activity Type Activity Date Activity User E-sign Co-sign Detail Recorded Client Recorded Date Recorded By Document 11/22/21 12:20 DL [id number] 11/22/21 12:21 DL Document 11/28/21 10:49 [facility] [id number] 11/28/21 10:51 [facility] Document 12/05/21 11:32 [place] [id number] 12/05/21 11:33 [place] 11/22/21 11/28/21 12/05/21 12:20 10:49 11:32 Wound Care Nurse 3 #7 Left foot 4th toe amp site -Ulcer Cleansing Rinsed/ Rinsed/ Rinsed/ Irrigated with Irrigated with Irrigated with Saline Saline Saline -Foul Odor after Cleansing No No No -Negative Pressure Wound Therapy N/A -Primary Dressing Applied Other -Other Dressing Betadine dakins dakins -Primary Dressing Covered/Secured with Dry Gauze & Dry Gauze & Dry Gauze & Roll Gauze, Roll Gauze, Roll Gauze, Secured with Secured with Secured with Tape Tape Tape -Other Covering drsg per mw rn #6- L MEDIAL FOOT -Foul Odor after Cleansing No -Other Dressing epifix epicord -Primary Dressing Covered/Secured with Dry Gauze & Dry Gauze & Dry Gauze & Roll Gauze, Roll Gauze, Roll Gauze, Secured with Secured with Secured with Tape Tape Tape -Other Covering drsg per mw rn #4- L PLANTAR FOOT -Foul Odor after Cleansing No -Other Dressing Epifix epicord -Primary Dressing Covered/Secured with Dry Gauze & Dry Gauze & Dry Gauze & Roll Gauze, Roll Gauze, Roll Gauze, Secured with Secured with Secured with Tape Tape Tape -Other Covering drsg per mw rn Left -Lotion applied to leg before No compression wrap -Compression Wrap Mian Wrap Mian Wrap -Other mian to secure Treatment Response Procedure Procedure Tolerated Well Tolerated Well Pain Scale: 0-10 Numeric Is Patient Pain Free? Yes Yes Yes WC - Visit Discharge Discharge Condition Stable Stable Stable Ambulatory Status Ambulatory Wheelchair Ambulatory Transportation Private Auto Private Auto Private Auto Accompanied by Medication Reconcilliation completed & Yes provided to patient/care provider Clinical Summary of Care Provided Yes Notes: Dolly Delacruz dressed wounds Facility Type Home Health Orders Sent Yes Assessment/Plan Assessment/Plan (1) Peripheral vascular disease, unspecified: CODE(S): I73.9 - Peripheral vascular disease, unspecified (2) Non-pressure chronic ulcer of other part of left foot with necrosis of muscle: CODE(S): L97.523 - Non-pressure chronic ulcer of other 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 Wounds to left foot are improving at this time. dorsal lateral foot wound improving. Plantar midfoot wound improving. Increased granulation around medial first MPJ and fibrous and subcutaneous tissue was debrided today. New wound to dorsal second digit. Patient is following with vascular surgery as an outpatient. Patient has healthy bleeding upon debridement suggestive of good wound healing potential. Blood thinner use noted. Patient is following with infectious disease and has him going to infusion center for IV antibiotics. To continue as advised. The left first metatarsal phalangeal joint wound, dorsal lateral foot wound and plantar midfoot wounds were debrided down to including level of capsule and tendon of all nonviable tissue without incident. This was performed using 15 blade scalpel and forceps. Hemostasis obtained with light compression. Patient tolerated procedure well. No anesthesia due to neuropathy. Pre and postdebridement measurements documented in nursing notes. He was approved for application of advanced wound healing product and epi cord was applied according to standard protocol after verbal consent was obtained. This was applied to the plantar foot ulcer site in which insurance approval was obtained for. 100% of the product was utilized (epicord). This was further secured in place with a wound veil and Steri-Strips. A secondary dressing was applied and he will keep this clean, dry, and intact until follow-up next week. The indications, benefits, application series, and anticipated healing time was reviewed. Patient will perform daily cleansing of his foot with dressing changes consisting of Dakin's DSD no compression to non epicord application site (s). Patient will maintain heel weightbearing status in cam walking boot assisted with a walker patient has a walker at home. Patient will follow up in 1 week. Patient is high risk for proximal amputation and understands this. (3) Type 2 diabetes mellitus with diabetic polyneuropathy: CODE(S): E11.42 - Type 2 diabetes mellitus with diabetic polyneuropathy
== END 2021-12-15 23:59 | disposition home or self-care (01) ==
LOC: WC 11:00
PROVIDERS: PCP Student in an Organized Health Care Education/Training Program; Visit Provider Podiatrist
DX: E11.621 Type 2 diabetes mellitus with foot ulcer (principal); E11.51 Type 2 diabetes mellitus with diabetic peripheral angiopathy without gangrene; T87.89 Other complications of amputation stump; L97.522 Non-pressure chronic ulcer of other part of left foot with fat layer exposed; E11.42 Type 2 diabetes mellitus with diabetic polyneuropathy; Y83.5 Amputation of limb(s) as the cause of abnormal reaction of the patient, or of later complication, without mention of misadventure at the time of the procedure
CPT/HCPCS: 11042; 15275; Q4187

== ENCOUNTER → 2021-12-25 | Outpatient (CLI) | payer OTHER, SELFPAY ==
--- NOTE | 2021-12-25 08:58 | CDU_ITS ---
Reason For Study: Atherosclerosis Rt. Velocities/BP Lt. Velocities/BP Prox CCA 68/13 cm/sec. Prox CCA 54/13 cm/sec. Mid CCA 62/13 cm/sec. Mid CCA 56/15 cm/sec. Dist CCA 51/14 cm/sec. Dist CCA 36/9 cm/sec. Prox ICA 56/16 cm/sec. Prox ICA 50/18 cm/sec. Mid ICA 65/22 cm/sec. Mid ICA 60/26 cm/sec. Dist ICA 78/25 cm/sec. Dist ICA 85/34 cm/sec. Rt. ICA/CCA = 1.3. Lt. ICA/CCA = 1.5. Prox ECA 104/13 cm/sec. Prox ECA 77/11 cm/sec. Rt. Vert. 50/13 cm/sec. Lt. Vert. 39/14 cm/sec. Right Extracranial There is heterogeneous, smooth atherosclerotic plaque noted in the right common carotid artery. There is heterogeneous, irregular atherosclerotic plaque noted in the right internal carotid artery. There is no significant atherosclerotic plaque noted in the right external carotid artery. Antegrade flow is noted in the right vertebral artery. Left Extracranial There is heterogeneous, smooth atherosclerotic plaque noted in the left common carotid artery. There is intimal thickening but no significant atherosclerotic plaque noted in the left internal carotid artery. There is intimal thickening but no significant atherosclerotic plaque noted in the left external carotid artery. Antegrade flow is noted in the left vertebral artery. Procedure Carotid Duplex [id number]. This is a Carotid Duplex examination using B-mode, color flow and specral Doppler. Exam performed in department. VL/Carotid Duplex Ultrasound Interpretation Summary Mild (<50%) stenosis right extracranial internal carotid. Mild (<50%) stenosis left extracranial internal carotid. Flow within the vertebral arteries is antegrade bilaterally. Ordering Physician: Perry Maciel Referring Physician: Javy Alcaraz Performed By: Nicole Vang, JAE, RVT
--- NOTE | 2021-12-25 08:58 | ART_ITS ---
Reason For Study: Atherosclerosis Procedure A bilateral lower extremity continuous wave Doppler with analog waveform analysis and ankle brachial indexes. Left Segmental Pressures Left brachial= 107mmHg. Left posterior tibial artery = 81mmHg. Left dorsalis pedis artery = 109mmHg. Right Segmental Pressures Right brachial= 118mmHg. Right posterior tibial artery = 119mmHg. Right dorsalis pedis artery = 125mmHg. Right digit = 89 mmHg. Indices The right ankle brachial index by the posterior tibial artery is 1.01. The right ankle brachial index by the dorsalis pedis is 1.06. The right digital-brachial index is 0.75. The left ankle brachial index by the posterior tibial artery is 0.69. The left ankle brachial index by the dorsalis pedis is 0.92. VL/Ankle Brachial Index Interpretation Summary Bilateral no significant stenosis at rest with MODE 1.01/0.92. Ordering Physician: Perry Maciel Referring Physician: Javy Alcaraz Performed By: Nicole Vang RDCS/RVT
--- NOTE | 2021-12-25 08:58 | ADUL_ITS ---
Reason For Study: Atherosclerosis Left Velocities Ext Iliac Artery, dist = 124 cm./sec. Common Femoral Artery, mid = 131 cm./sec. Supf. Femoral Artery, prox = 128 cm./sec. Lt SFA prox/mid pre stenosis: 89 cm/s Lt SFA prox/mid stenosis: 400cm/s Lt SFA prox/mid post stenosis: 198cm/s. Supf. Femoral Artery, mid = 101 cm./sec. Supf. Femoral Artery, dist = 83 cm./sec. Profunda Femoral Artery = 124 cm./sec. Popliteal Artery, proximal, = 110 cm./sec. Popliteal Artery, mid = 141 cm./sec. Popliteal Artery, distal = 88 cm./sec. Lt Pop A distal pre stent: 88cm/s Lt Pop A distal prox stent: 95cm/s Lt Pop A distal mid stent: 73cm/s Lt Pop A distal distal stent: 64cm/s Lt Pop A post stent: 134cm/s Lt HEALTH EDUCATION COORDINATOR no flow noted. Peroneal Artery, prox = 77 cm./sec. Peroneal Artery, mid = 43 cm./sec. Peroneal Artery,dist. = 27 cm./sec. Ant.Tibial Artery, prox = 65 cm./sec. Ant Tibial Artery, mid = 64 cm./sec. Ant. Tibial Artery, distal = 67 cm./sec. Procedure Exam performed in department. /US Art Duplex Unilat Lower Ext Interpretation Summary Left femoral severe stenosis. Ordering Physician: Perry Maciel Referring Physician: Javy Alcaraz Performed By: Nicole Vang RDCS, RVT
== END | disposition home or self-care (01) ==
PROVIDERS: PCP Student in an Organized Health Care Education/Training Program; Referring Provider Podiatrist; Visit Provider Podiatrist
DX: I65.23 Occlusion and stenosis of bilateral carotid arteries (principal); E11.621 Type 2 diabetes mellitus with foot ulcer; I70.213 Atherosclerosis of native arteries of extremities with intermittent claudication, bilateral legs; I77.1 Stricture of artery; I73.9 Peripheral vascular disease, unspecified; E78.00 Pure hypercholesterolemia, unspecified; I10 Essential (primary) hypertension
CPT/HCPCS: 93880; 93922; 93926

== ENCOUNTER 2022-01-09 10:45 | Outpatient (RCR) | payer OTHER, SELFPAY ==
[2021-12-16 01:18] VITALS: BP 127/80; PULSE 66; RESP 16; TEMP 36.4; BMI 23.8
[2021-12-19 10:12] VITALS: BP 144/85; PULSE 110; RESP 18; TEMP 36; BMI 23.8
--- NOTE | 2021-12-19 10:55 | PN.PCM_ITS ---
History of Present Illness Date of Service: 12/19/21 Chief Complaint: Left foot ulcers x 3 History of Wound: This 61-year-old male seen in the wound care center for chronic left foot ulcerations secondary to peripheral arterial disease and amputations. Patient recently underwent quadruple bypass surgery successfully at [facility]. Patient has stent placed in popliteal artery due to popliteal occlusion and left lower extremity on the hospital previously. Subsequently the next day patient had a wound debridement with amputation of the fourth ray left open with vessel loop closure to the dorsal midfoot and wet-to-dry dressings to the plantar midfoot and medial first metatarsophalangeal joints. At this time he denies any constitutional symptoms, chest pain, calf pain, or shortness of breath. Patient received 6 weeks IV antibiotics at [facility]. He is amendable to proceed with advanced wound healing product application today if it has been approved by the insurance. Objective Data Objective Data Vital Signs: Vital Signs Temp Pulse Resp BP O2 Del Method 96.8 F L 110 H 18 144/85 H Room Air 12/19/21 10:12 12/19/21 10:12 12/19/21 10:12 12/19/21 10:12 12/19/21 10:12 Oxygen Delivery Method Room Air Weight: 77.564 kg Body Mass Index (BMI) 23.8 Physical Exam Narrative Improve vascularity left lower extremity. Dermatologic: Partial third and fourth ray resection sites with with wound demonstrates granular natured base, decrease in size. Plantar midfoot wound demonstrates fibrogranular base pre and postdebridement, decrease in size. Medial first metatarsal phalangeal joint wound is down to level of capsule there is a bleeding granular wound edge but the base of the wound improving and granulating in nature. Adjacent skin is hairless and atrophic. There is no visualized or palpable bone. New wound to dorsal second digit. All other wounds improving at this time. Wound to second digit at apex of hammertoe formation on the left foot. Demonstrates granular base no signs of infection deep probing or undermining. Musculoskeletal: Partial amputation to left third and fourth ray. Muscular strength 5 out of 5 to bilateral lower extremity compartments No pain with calf squeeze bilateral lower extremities. Debridement Note Debridement Note Post-Debridement Measurements and Additional Note: Post-Debridement Measurements/Treatment - Nurse 1 - General Ulcer Assessment Start: 12/19/21 10:12 Freq: Status: Active Protocol: ROYCE.CIRA Activity Type Activity Date Activity User E-sign Co-sign Detail Recorded Client Recorded Date Recorded By Document 12/19/21 10:12 DA [id number] 12/19/21 10:20 12/19/21 10:12 - Today's Visit Information Type of service Follow-up Visit (Physician/RISK MANAGEMENT MANAGER ) Arrival Mode Wheelchair Transfer Assistance None Accompanied by self Patient Identification Verified (Name & Yes ) Patient Requires Transmission-Based No Precautions Safety Precautions NA Finger Stick Blood Sugar(mg/dl) (if 140 indicated): Blood Sugar Stated by Patient Height and Weight Body Mass Index (BMI) 23.8 BMI Classification Normal Vital Signs Temperature (97.8 F-99.1 F) 96.8 F L Temperature Source Temporal Pulse Rate (60-100) 110 H Pulse Location Monitor Respiratory Rate (12-18) 18 Respiratory rate source Observation Oxygen Delivery Method Room Air Blood Pressure (90/60-120/80) 144/85 H Blood Pressure Mean (mm Hg) 104 Source Monitor Position Sitting Blood Pressure Location Left Arm History Since Last Visit- (Skip if this is Patient's initial visit) Have you changed medications since your No last visit? Any new allergies or adverse reactions No Had a fall/change in ADL's that may No increase risk of falls Signs or symptoms of abuse and/or No neglect since last visit Have you been in the hospital since your No last visit? Has dressing in place as prescribed Yes Has compression in place as prescribed Yes Has offloadiing in place as prescribed Yes Experienced any changes in pain level or No management Left Footwear Surgical Shoe with pressure relief insole Right Footwear Regular Shoe Pain Scale: 0-10 Numeric Is Patient Pain Free? Yes - Nurse 1 - General Ulcer Measurement Start: 12/19/21 10:12 Freq: Status: Active Protocol: Activity Type Activity Date Activity User E-sign Co-sign Detail Recorded Client Recorded Date Recorded By Document 12/19/21 10:12 DA [id number] 12/19/21 10:20 MW 12/19/21 10:12 Wound Center Nurse 1 8-left 2nd toe ulcer -Combined with other wound No -Current Size (cm) - Length 0.5 -Current Size (cm) - Width 0.7 -Current Size (cm) - Depth 0.1 -Total Square Cm 0.35 -Date of Last Picture (Recall this 12/19/21 field) -Photo Taken Yes -Epithelialization None Present -Tunneling No -Undermining/Tunneling No -Circular Undermining No -Exudate Amt Small -Exudate Type Serosanguineous -Wound Margin Flat & Intact -Granulation Amt None Present (0 %) -Granulation Quality N/A -Slough/Fibrin Yes -Necrosis Amt Large (67-100%) -Necrotic Tissue Type Adherent Slough -Structure Exposed N/A -Texture (Bernadette-wound Skin Appearance) Assessed, Localized Edema -Moisture (Bernadette-wound Skin Appearance) Assessed,Dry/ Scaly -Color (Bernadette-wound Skin Appearance) Assessed, Erythema -Temperature (Bernadette-wound Skin No Abnormality Appearance) (Pt Warm) -Tenderness on Palpation (Bernadette-wound No Skin Appearance) -Ulcer Cleansing Soap and Water -Foul Odor after Cleansing No -Anesthetic Used 4% Lidocaine Solution #7 Left foot 4th toe amp site -Combined with other wound No -Current Size (cm) - Length 1.0 -Current Size (cm) - Width 0.5 -Current Size (cm) - Depth 0.3 -Total Square Cm 0.50 -Date of Last Picture (Recall this 12/19/21 field) -Photo Taken Yes -Epithelialization None Present -Tunneling No -Undermining/Tunneling No -Circular Undermining No -Exudate Amt Medium -Exudate Type Serosanguineous -Wound Margin Distinct, Outline Attached -Granulation Amt Large (67-100%) -Granulation Quality [place] -Slough/Fibrin Yes -Necrosis Amt Small (1-33%) -Necrotic Tissue Type Adherent Slough -Structure Exposed N/A -Texture (Bernadette-wound Skin Appearance) Assessed, Scarring -Moisture (Bernadette-wound Skin Appearance) No Abnormality, Assessed -Color (Bernadette-wound Skin Appearance) No Abnormality, Assessed -Temperature (Bernadette-wound Skin No Abnormality Appearance) (Pt Warm) -Tenderness on Palpation (Bernadette-wound No Skin Appearance) -Ulcer Cleansing Soap and Water -Foul Odor after Cleansing No -Anesthetic Used 4% Lidocaine Solution #6- L MEDIAL FOOT -Combined with other wound No -Current Size (cm) - Length 3.8 -Current Size (cm) - Width 3.1 -Current Size (cm) - Depth 0.6 -Total Square Cm 11.78 -Photo Taken No -Epithelialization None Present -Tunneling No -Undermining/Tunneling No -Circular Undermining No -Exudate Amt Medium -Exudate Type Serosanguineous -Wound Margin Distinct, Outline Attached -Granulation Amt Medium (34-66%) -Granulation Quality [place] -Necrosis Amt Medium (34-66%) -Necrotic Tissue Type Adherent Slough -Structure Exposed N/A -Texture (Bernadette-wound Skin Appearance) Assessed, Scarring -Moisture (Bernadette-wound Skin Appearance) No Abnormality, Assessed -Color (Bernadette-wound Skin Appearance) No Abnormality, Assessed -Temperature (Bernadette-wound Skin No Abnormality Appearance) (Pt Warm) -Tenderness on Palpation (Bernadette-wound No Skin Appearance) -Ulcer Cleansing Soap and Water -Foul Odor after Cleansing No -Anesthetic Used 4% Lidocaine Solution #4- L PLANTAR FOOT -Combined with other wound No -Current Size (cm) - Length 2.5 -Current Size (cm) - Width 1.5 -Current Size (cm) - Depth 0.3 -Total Square Cm 3.75 -Date of Last Picture (Recall this 12/19/21 field) -Photo Taken Yes -Epithelialization None Present -Tunneling No -Undermining/Tunneling No -Circular Undermining No -Exudate Amt Medium -Exudate Type Serosanguineous -Wound Margin Distinct, Outline Attached -Granulation Amt Medium (34-66%) -Granulation Quality [place] -Slough/Fibrin Yes -Necrosis Amt Medium (34-66%) -Necrotic Tissue Type Adherent Slough -Structure Exposed N/A -Texture (Bernadette-wound Skin Appearance) Assessed, Localized Edema -Moisture (Bernadette-wound Skin Appearance) No Abnormality, Assessed -Color (Bernadette-wound Skin Appearance) No Abnormality, Assessed -Temperature (Bernadette-wound Skin No Abnormality Appearance) (Pt Warm) -Tenderness on Palpation (Bernadette-wound No Skin Appearance) -Ulcer Cleansing Soap and Water -Foul Odor after Cleansing No -Anesthetic Used 4% Lidocaine Solution Lower Limb Edema Present No WC - Nurse 2 - General Ulcer CM Notes Start: 12/19/21 10:12 Freq: Status: Active Protocol: Activity Type Activity Date Activity User E-sign Co-sign Detail Recorded Client Recorded Date Recorded By Document 12/19/21 10:24 [id number] 12/19/21 10:33 JF 12/19/21 10:24 Wound Center Nurse 2 8-left 2nd toe ulcer -Correct Patient No -Correct Side, Site, Position No -Correct Procedure No -Procedure Performed No -Wound/Ulcer Outcome Not Healed #7 Left foot 4th toe amp site -Time 10:25 -Correct Patient Yes -Correct Side, Site, Position Yes -Correct Procedure Yes -Procedure Performed Yes -Type of Procedure Debridement -Clinical Debridement Subcutaneous -Tissue Removed Subcutaneous -Post Debridement (cm) - Length 1.1 -Post Debridement (cm) - Width 0.6 -Post Debridement (cm) - Depth 0.3 -Total Square (Post) (cm) 0.66 -Area of Debridement (cm) - Length 1.1 -Area of Debridement (cm) - Width 0.6 -Total Square (Area) (cm) 0.66 -Tunneling No -Undermining/Tunneling No -Circular Undermining No -Wound/Ulcer Outcome Not Healed -Ulcer Cleansing Rinsed/ Irrigated with Saline -Foul Odor after Cleansing No -Bioengineered Tissue No -Bleeding Controlled with Pressure -Treatment Response Procedure Tolerated Well -Offloading Yes -Type of Offloading Surgical Shoe -Debridement - Subq, 1st 20sq cm Yes #6- L MEDIAL FOOT -Time 10:25 -Correct Patient Yes -Correct Side, Site, Position Yes -Correct Procedure Yes -Procedure Performed Yes -Type of Procedure Debridement -Clinical Debridement Subcutaneous -Tissue Removed Subcutaneous -Post Debridement (cm) - Length 3.8 -Post Debridement (cm) - Width 3.2 -Post Debridement (cm) - Depth 0.6 -Total Square (Post) (cm) 12.16 -Area of Debridement (cm) - Length 3.8 -Area of Debridement (cm) - Width 3.2 -Total Square (Area) (cm) 12.16 -Tunneling No -Undermining/Tunneling No -Circular Undermining No -Wound/Ulcer Outcome Not Healed -Ulcer Cleansing Rinsed/ Irrigated with Saline -Foul Odor after Cleansing No -Bioengineered Tissue No -Bleeding Controlled with Pressure -Treatment Response Procedure Tolerated Well -Offloading Yes -Type of Offloading Surgical Shoe -Debridement - Subq, 1st 20sq cm No #4- L PLANTAR FOOT -Time 10:25 -Correct Patient Yes -Correct Side, Site, Position Yes -Correct Procedure Yes -Procedure Performed Yes -Type of Procedure Debridement -Clinical Debridement Subcutaneous -Tissue Removed Subcutaneous -Post Debridement (cm) - Length 2.5 -Post Debridement (cm) - Width 1.6 -Post Debridement (cm) - Depth 0.3 -Total Square (Post) (cm) 4.00 -Area of Debridement (cm) - Length 2.5 -Area of Debridement (cm) - Width 1.6 -Total Square (Area) (cm) 4.00 -Tunneling No -Undermining/Tunneling No -Circular Undermining No -Wound/Ulcer Outcome Not Healed -Ulcer Cleansing Rinsed/ Irrigated with Saline -Foul Odor after Cleansing No -Bioengineered Tissue Yes -Type of Bioengineered Tissue Epicord -Expiration Date 06/16/26 -Product Lot Number [id number] -Percent Used 100 -Lot number of Saline Used [id number] -Bleeding Controlled with Pressure -Treatment Response Procedure Tolerated Well -Offloading Yes -Type of Offloading Surgical Shoe -Debridement - Subq, 1st 20sq cm No -Apply Skin Sub - 1st 25 sq cm - Feet 1 -Epicord (per sq cm) 6 Pain Scale: 0-10 Numeric Is Patient Pain Free? Yes WC - Nurse 3 - General Ulcer D/C NN Start: 12/19/21 10:12 Freq: Status: Active Protocol: Activity Type Activity Date Activity User E-sign Co-sign Detail Recorded Client Recorded Date Recorded By Document 12/19/21 10:42 [facility] [id number] 12/19/21 10:43 [facility] 12/19/21 10:42 Wound Care Nurse 3 8-left 2nd toe ulcer -Ulcer Cleansing Rinsed/ Irrigated with Saline -Foul Odor after Cleansing No -Primary Dressing Applied Hysept ($) -Primary Dressing Covered/Secured with Dry Gauze & Roll Gauze, Secured with Tape #7 Left foot 4th toe amp site -Ulcer Cleansing Rinsed/ Irrigated with Saline -Foul Odor after Cleansing No -Other Dressing dakins -Primary Dressing Covered/Secured with Dry Gauze & Roll Gauze, Secured with Tape #6- L MEDIAL FOOT -Other Dressing epicord -Primary Dressing Covered/Secured with Dry Gauze & Roll Gauze, Secured with Tape -Other Covering abd #4- L PLANTAR FOOT -Other Dressing epicord -Other Covering abd Left -Compression Wrap Mian Wrap -Other mian to secure Treatment Response Procedure Tolerated Well Pain Scale: 0-10 Numeric Is Patient Pain Free? Yes WC - Visit Discharge Discharge Condition Stable Ambulatory Status Wheelchair Transportation Private Auto Assessment/Plan Assessment/Plan (1) Peripheral vascular disease, unspecified: CODE(S): I73.9 - Peripheral vascular disease, unspecified (2) Non-pressure chronic ulcer of other part of left foot with necrosis of muscle: CODE(S): L97.523 - Non-pressure chronic ulcer of other 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 Wounds to left foot are improving at this time. dorsal lateral foot wound improving. Plantar midfoot wound improving. Increased granulation around medial first MPJ and fibrous and subcutaneous tissue was debrided today. New wound to dorsal second digit. Patient is following with vascular surgery as an outpatient. Patient has healthy bleeding upon debridement suggestive of good wound healing potential. Blood thinner use noted. Patient is following with infectious disease and has him going to infusion center for IV antibiotics. To continue as advised. The left first metatarsal phalangeal joint wound, dorsal lateral foot wound and plantar midfoot wounds were debrided down to including level of capsule and tendon of all nonviable tissue without incident. This was performed using 15 blade scalpel and forceps. Hemostasis obtained with light compression. Patient tolerated procedure well. No anesthesia due to neuropathy. Pre and postdebridement measurements documented in nursing notes. He was approved for application of advanced wound healing product and epi cord was applied according to standard protocol after verbal consent was obtained. This was applied to the plantar foot ulcer site in which insurance approval was obtained for. 100% of the product was utilized (epicord). This was further secured in place with a wound veil and Steri-Strips. A secondary dressing was applied and he will keep this clean, dry, and intact until follow-up next week. The indications, benefits, application series, and anticipated healing time was reviewed. Patient will perform daily cleansing of his foot with dressing changes consisting of Dakin's DSD no compression to non epicord application site (s). Patient will maintain heel weightbearing status in cam walking boot assisted with a walker patient has a walker at home. Patient will follow up in 1 week. Patient is high risk for proximal amputation and understands this. (3) Type 2 diabetes mellitus with diabetic polyneuropathy: CODE(S): E11.42 - Type 2 diabetes mellitus with diabetic polyneuropathy
[2021-12-26 10:32] VITALS: BP 118/91; PULSE 93; RESP 16; TEMP 36; BMI 23.8
--- NOTE | 2021-12-26 11:23 | PN.PCM_ITS ---
History of Present Illness Date of Service: 12/26/21 Chief Complaint: Left foot ulcers x 3 History of Wound: This 61-year-old male seen in the wound care center for chronic left foot ulcerations secondary to peripheral arterial disease and amputations. Patient recently underwent quadruple bypass surgery successfully at [facility]. Patient has stent placed in popliteal artery due to popliteal occlusion and left lower extremity on the hospital previously. Subsequently the next day patient had a wound debridement with amputation of the fourth ray left open with vessel loop closure to the dorsal midfoot and wet-to-dry dressings to the plantar midfoot and medial first metatarsophalangeal joints. At this time he denies any constitutional symptoms, chest pain, calf pain, or shortness of breath. Patient received 6 weeks IV antibiotics at [facility]. He is amendable to proceed with advanced wound healing product application today if it has been approved by the insurance. Objective Data Objective Data Vital Signs: Vital Signs Temp Pulse Resp BP O2 Del Method 96.8 F L 93 16 118/91 H Room Air 12/26/21 10:32 12/26/21 10:32 12/26/21 10:32 12/26/21 10:32 12/26/21 10:32 Oxygen Delivery Method Room Air Weight: 77.564 kg Body Mass Index (BMI) 23.8 Physical Exam Narrative Improve vascularity left lower extremity. Dermatologic: Partial third and fourth ray resection sites with with wound demonstrates granular natured base, decrease in size. Plantar midfoot wound demonstrates fibrogranular base pre and postdebridement, decrease in size. Medial first metatarsal phalangeal joint wound is down to level of capsule there is a bleeding granular wound edge but the base of the wound improving and granulating in nature. Adjacent skin is hairless and atrophic. There is no visualized or palpable bone. New wound to dorsal second digit. All other wounds improving at this time. Wound to second digit at apex of hammertoe formation on the left foot. Demonstrates granular base no signs of infection deep probing or undermining. Musculoskeletal: Partial amputation to left third and fourth ray. Muscular strength 5 out of 5 to bilateral lower extremity compartments No pain with calf squeeze bilateral lower extremities. Debridement Note Debridement Note Post-Debridement Measurements and Additional Note: Post-Debridement Measurements/Treatment ROYCE - Nurse 1 - General Ulcer Assessment Start: 12/19/21 10:12 Freq: Status: Active Protocol: CIRA Activity Type Activity Date Activity User E-sign Co-sign Detail Recorded Client Recorded Date Recorded By Document 12/19/21 10:12 [id number] 12/19/21 10:20 Document 12/26/21 10:32 [facility] [id number] 12/26/21 10:42 BM 12/19/21 12/26/21 10:12 10:32 - Today's Visit Information Type of service Follow-up Visit Follow-up Visit (Physician/DIRECTOR ECONOMIC (Physician/DIRECTOR ECONOMIC ) ) Arrival Mode Wheelchair Wheelchair Transfer Assistance None None Accompanied by self Patient Identification Verified (Name & Yes Yes ) Patient Requires Transmission-Based No No Precautions Safety Precautions NA Finger Stick Blood Sugar(mg/dl) (if 140 indicated): Blood Sugar Stated by Patient Height and Weight Body Mass Index (BMI) 23.8 23.8 BMI Classification Normal Normal Vital Signs Temperature (97.8 F-99.1 F) 96.8 F L 96.8 F L Temperature Source Temporal Temporal Pulse Rate (60-100) 110 H 93 Pulse Location Monitor Monitor Respiratory Rate (12-18) 18 16 Respiratory rate source Observation Observation Oxygen Delivery Method Room Air Room Air Blood Pressure (90/60-120/80) 144/85 H 118/91 H Blood Pressure Mean (mm Hg) 104 100 Source Monitor Monitor Position Sitting Sitting Blood Pressure Location Left Arm Right Arm History Since Last Visit- (Skip if this is Patient's initial visit) Have you changed medications since your No No last visit? Any new allergies or adverse reactions No No Had a fall/change in ADL's that may No No increase risk of falls Signs or symptoms of abuse and/or No No neglect since last visit Have you been in the hospital since your No No last visit? Has dressing in place as prescribed Yes Yes Has compression in place as prescribed Yes N/A Has offloadiing in place as prescribed Yes Yes Experienced any changes in pain level or No No management Left Footwear Surgical Shoe Surgical Shoe with pressure with pressure relief insole relief insole Right Footwear Regular Shoe Regular Shoe Pain Scale: 0-10 Numeric Is Patient Pain Free? Yes Yes - Nurse 1 - General Ulcer Measurement Start: 12/19/21 10:12 Freq: Status: Active Protocol: Activity Type Activity Date Activity User E-sign Co-sign Detail Recorded Client Recorded Date Recorded By Document 12/19/21 10:12 MW [id number] 12/19/21 10:20 MW Document 12/26/21 10:32 [facility] [id number] 12/26/21 10:42 BM 12/19/21 12/26/21 10:12 10:32 Wound Center Nurse 1 8-left 2nd toe ulcer -Combined with other wound No No -Current Size (cm) - Length 0.5 0.5 -Current Size (cm) - Width 0.7 0.6 -Current Size (cm) - Depth 0.1 0.1 -Total Square Cm 0.35 0.30 -Date of Last Picture (Recall this 12/19/21 field) -Photo Taken Yes No -Epithelialization None Present None Present -Tunneling No No -Undermining/Tunneling No No -Circular Undermining No No -Exudate Amt Small None Present -Exudate Type Serosanguineous -Wound Margin Flat & Intact Distinct, Outline Attached -Granulation Amt None Present (0 None Present (0 %) %) -Granulation Quality N/A -Slough/Fibrin Yes Yes -Necrosis Amt Large (67-100%) Large (67-100%) -Necrotic Tissue Type Adherent Slough Eschar -Structure Exposed N/A -Texture (Bernadette-wound Skin Appearance) Assessed, Assessed, Localized Edema Scarring -Moisture (Bernadette-wound Skin Appearance) Assessed,Dry/ No Abnormality Scaly -Color (Bernadette-wound Skin Appearance) Assessed, Assessed, Erythema Erythema -Temperature (Bernadette-wound Skin No Abnormality No Abnormality Appearance) (Pt Warm) (Pt Warm) -Tenderness on Palpation (Bernadette-wound No No Skin Appearance) -Ulcer Cleansing Soap and Water Soap and Water -Foul Odor after Cleansing No No -Anesthetic Used 4% Lidocaine 5% Lidocaine Solution Gel #7 Left foot 4th toe amp site -Combined with other wound No No -Current Size (cm) - Length 1.0 0.5 -Current Size (cm) - Width 0.5 0.4 -Current Size (cm) - Depth 0.3 0.3 -Total Square Cm 0.50 0.20 -Date of Last Picture (Recall this 12/19/21 field) -Photo Taken Yes No -Epithelialization None Present Small 1-33% -Tunneling No No -Undermining/Tunneling No No -Circular Undermining No No -Exudate Amt Medium Small -Exudate Type Serosanguineous Serous -Wound Margin Distinct, Distinct, Outline Outline Attached Attached -Granulation Amt Large (67-100%) Large (67-100%) -Granulation Quality [place] Red -Slough/Fibrin Yes Yes -Necrosis Amt Small (1-33%) Small (1-33%) -Necrotic Tissue Type Adherent Slough Adherent Slough -Structure Exposed N/A -Texture (Bernadette-wound Skin Appearance) Assessed, Assessed, Scarring Scarring -Moisture (Bernadette-wound Skin Appearance) No Abnormality, Assessed Assessed -Color (Bernadette-wound Skin Appearance) No Abnormality, Assessed Assessed -Temperature (Bernadette-wound Skin No Abnormality No Abnormality Appearance) (Pt Warm) (Pt Warm) -Tenderness on Palpation (Bernadette-wound No No Skin Appearance) -Ulcer Cleansing Soap and Water Soap and Water -Foul Odor after Cleansing No No -Anesthetic Used 4% Lidocaine 4% Lidocaine Solution Solution #6- L MEDIAL FOOT -Combined with other wound No No -Current Size (cm) - Length 3.8 4 -Current Size (cm) - Width 3.1 3 -Current Size (cm) - Depth 0.6 0.6 -Total Square Cm 11.78 12 -Photo Taken No No -Epithelialization None Present Small 1-33% -Tunneling No No -Undermining/Tunneling No No -Circular Undermining No No -Exudate Amt Medium Medium -Exudate Type Serosanguineous Serosanguineous -Wound Margin Distinct, Distinct, Outline Outline Attached Attached -Granulation Amt Medium (34-66%) Medium (34-66%) -Granulation Quality [place] Red -Slough/Fibrin Yes -Necrosis Amt Medium (34-66%) Medium (34-66%) -Necrotic Tissue Type Adherent Slough Adherent Slough -Structure Exposed N/A -Texture (Bernadette-wound Skin Appearance) Assessed, Assessed Scarring -Moisture (Bernadette-wound Skin Appearance) No Abnormality, Assessed, Assessed Maceration -Color (Bernadette-wound Skin Appearance) No Abnormality, Assessed Assessed -Temperature (Bernadette-wound Skin No Abnormality No Abnormality Appearance) (Pt Warm) (Pt Warm) -Tenderness on Palpation (Bernadette-wound No No Skin Appearance) -Ulcer Cleansing Soap and Water Soap and Water -Foul Odor after Cleansing No No -Anesthetic Used 4% Lidocaine 4% Lidocaine Solution Solution #4- L PLANTAR FOOT -Combined with other wound No No -Current Size (cm) - Length 2.5 2.7 -Current Size (cm) - Width 1.5 0.3 -Current Size (cm) - Depth 0.3 0.3 -Total Square Cm 3.75 0.81 -Date of Last Picture (Recall this 12/19/21 field) -Photo Taken Yes No -Epithelialization None Present Small 1-33% -Tunneling No No -Undermining/Tunneling No No -Circular Undermining No No -Exudate Amt Medium Medium -Exudate Type Serosanguineous Serous -Wound Margin Distinct, Distinct, Outline Outline Attached Attached -Granulation Amt Medium (34-66%) Large (67-100%) -Granulation Quality [place] Red -Slough/Fibrin Yes Yes -Necrosis Amt Medium (34-66%) Small (1-33%) -Necrotic Tissue Type Adherent Slough Adherent Slough -Structure Exposed N/A -Texture (Bernadette-wound Skin Appearance) Assessed, Assessed, Localized Edema Scarring -Moisture (Bernadette-wound Skin Appearance) No Abnormality, Assessed Assessed -Color (Bernadette-wound Skin Appearance) No Abnormality, Assessed Assessed -Temperature (Bernadette-wound Skin No Abnormality No Abnormality Appearance) (Pt Warm) (Pt Warm) -Tenderness on Palpation (Bernadette-wound No No Skin Appearance) -Ulcer Cleansing Soap and Water Soap and Water -Foul Odor after Cleansing No No -Anesthetic Used 4% Lidocaine 4% Lidocaine Solution Solution Lower Limb Edema Present No WC - Nurse 2 - General Ulcer CM Notes Start: 12/19/21 10:12 Freq: Status: Active Protocol: Activity Type Activity Date Activity User E-sign Co-sign Detail Recorded Client Recorded Date Recorded By Document 12/19/21 10:24 ORESTES [id number] 12/19/21 10:33 Document 12/26/21 10:52 ORESTES [id number] 12/26/21 11:02 ORESTES 12/19/21 12/26/21 10:24 10:52 Wound Center Nurse 2 8-left 2nd toe ulcer -Correct Patient No No -Correct Side, Site, Position No No -Correct Procedure No No -Procedure Performed No No -Wound/Ulcer Outcome Not Healed Not Healed #7 Left foot 4th toe amp site -Time 10:25 10:54 -Correct Patient Yes Yes -Correct Side, Site, Position Yes Yes -Correct Procedure Yes Yes -Procedure Performed Yes Yes -Type of Procedure Debridement Debridement -Clinical Debridement Subcutaneous Subcutaneous -Tissue Removed Subcutaneous Subcutaneous -Post Debridement (cm) - Length 1.1 0.5 -Post Debridement (cm) - Width 0.6 0.5 -Post Debridement (cm) - Depth 0.3 0.3 -Total Square (Post) (cm) 0.66 0.25 -Area of Debridement (cm) - Length 1.1 0.5 -Area of Debridement (cm) - Width 0.6 0.5 -Total Square (Area) (cm) 0.66 0.25 -Tunneling No No -Undermining/Tunneling No No -Circular Undermining No No -Wound/Ulcer Outcome Not Healed Not Healed -Ulcer Cleansing Rinsed/ Rinsed/ Irrigated with Irrigated with Saline Saline -Foul Odor after Cleansing No No -Bioengineered Tissue No No -Bleeding Controlled with Pressure Pressure -Treatment Response Procedure Procedure Tolerated Well Tolerated Well -Offloading Yes Yes -Type of Offloading Surgical Shoe Surgical Shoe -Debridement - Subq, 1st 20sq cm Yes Yes #6- L MEDIAL FOOT -Time 10:25 10:55 -Correct Patient Yes Yes -Correct Side, Site, Position Yes Yes -Correct Procedure Yes Yes -Procedure Performed Yes Yes -Type of Procedure Debridement Debridement -Clinical Debridement Subcutaneous Muscle / Fascia -Tissue Removed Subcutaneous Muscle -Post Debridement (cm) - Length 3.8 4.1 -Post Debridement (cm) - Width 3.2 3.1 -Post Debridement (cm) - Depth 0.6 0.7 -Total Square (Post) (cm) 12.16 12.71 -Area of Debridement (cm) - Length 3.8 4.1 -Area of Debridement (cm) - Width 3.2 3.1 -Total Square (Area) (cm) 12.16 12.71 -Tunneling No No -Undermining/Tunneling No No -Circular Undermining No No -Wound/Ulcer Outcome Not Healed Not Healed -Ulcer Cleansing Rinsed/ Rinsed/ Irrigated with Irrigated with Saline Saline -Foul Odor after Cleansing No No -Bioengineered Tissue No No -Bleeding Controlled with Pressure Pressure,Silver Nitrate -Treatment Response Procedure Procedure Tolerated Well Tolerated Well -Offloading Yes Yes -Type of Offloading Surgical Shoe Surgical Shoe -Debridement - Subq, 1st 20sq cm No -Debridement - Muscle / Fascia, 1st Yes 20sq cm #4- L PLANTAR FOOT -Time 10:25 10:55 -Correct Patient Yes Yes -Correct Side, Site, Position Yes Yes -Correct Procedure Yes Yes -Procedure Performed Yes Yes -Type of Procedure Debridement Debridement -Clinical Debridement Subcutaneous Subcutaneous -Tissue Removed Subcutaneous Subcutaneous -Post Debridement (cm) - Length 2.5 2.8 -Post Debridement (cm) - Width 1.6 1.3 -Post Debridement (cm) - Depth 0.3 0.2 -Total Square (Post) (cm) 4.00 3.64 -Area of Debridement (cm) - Length 2.5 2.8 -Area of Debridement (cm) - Width 1.6 1.3 -Total Square (Area) (cm) 4.00 3.64 -Tunneling No No -Undermining/Tunneling No No -Circular Undermining No No -Wound/Ulcer Outcome Not Healed Not Healed -Ulcer Cleansing Rinsed/ Rinsed/ Irrigated with Irrigated with Saline Saline -Foul Odor after Cleansing No No -Bioengineered Tissue Yes Yes -Type of Bioengineered Tissue Epicord Epicord -Expiration Date 06/16/26 07/16/26 -Product Lot Number [id number] -Percent Used 100 100 -Lot number of Saline Used [id number] -Bleeding Controlled with Pressure Pressure -Treatment Response Procedure Procedure Tolerated Well Tolerated Well -Offloading Yes Yes -Type of Offloading Surgical Shoe Surgical Shoe -Debridement - Subq, 1st 20sq cm No No -Apply Skin Sub - 1st 25 sq cm - Feet 1 1 -Epicord (per sq cm) 6 6 Pain Scale: 0-10 Numeric Is Patient Pain Free? Yes Yes - Nurse 3 - General Ulcer D/C NN Start: 12/19/21 10:12 Freq: Status: Active Protocol: Activity Type Activity Date Activity User E-sign Co-sign Detail Recorded Client Recorded Date Recorded By Document 12/19/21 10:42 [facility] [id number] 12/19/21 10:43 [facility] 12/19/21 10:42 Wound Care Nurse 3 8-left 2nd toe ulcer -Ulcer Cleansing Rinsed/ Irrigated with Saline -Foul Odor after Cleansing No -Primary Dressing Applied Hysept ($) -Primary Dressing Covered/Secured with Dry Gauze & Roll Gauze, Secured with Tape #7 Left foot 4th toe amp site -Ulcer Cleansing Rinsed/ Irrigated with Saline -Foul Odor after Cleansing No -Other Dressing dakins -Primary Dressing Covered/Secured with Dry Gauze & Roll Gauze, Secured with Tape #6- L MEDIAL FOOT -Other Dressing epicord -Primary Dressing Covered/Secured with Dry Gauze & Roll Gauze, Secured with Tape -Other Covering abd #4- L PLANTAR FOOT -Other Dressing epicord -Other Covering abd Left -Compression Wrap Mian Wrap -Other mian to secure Treatment Response Procedure Tolerated Well Pain Scale: 0-10 Numeric Is Patient Pain Free? Yes WC - Visit Discharge Discharge Condition Stable Ambulatory Status Wheelchair Transportation Private Auto Assessment/Plan Assessment/Plan (1) Peripheral vascular disease, unspecified: CODE(S): I73.9 - Peripheral vascular disease, unspecified (2) Non-pressure chronic ulcer of other part of left foot with necrosis of muscle: CODE(S): L97.523 - Non-pressure chronic ulcer of other 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 Wounds to left foot are improving at this time. dorsal lateral foot wound improv ing. Plantar midfoot wound improving. Increased granulation around medial first MPJ and fibrous and subcutaneous tissue was debrided today. New wound to dorsal second digit. Patient is following with vascular surgery as an outpatient. Patient has healthy bleeding upon debridement suggestive of good wound healing potential. Blood thinner use noted. Patient is following with infectious disease and has him going to infusion center for IV antibiotics. To continue as advised. The left first metatarsal phalangeal joint wound, dorsal lateral foot wound and plantar midfoot wounds were debrided down to including level of capsule and tendon of all nonviable tissue without incident. This was performed using 15 blade scalpel and forceps. Hemostasis obtained with light compression. Patient tolerated procedure well. No anesthesia due to neuropathy. Pre and postdebridement measurements documented in nursing notes. He was approved for application of advanced wound healing product and epi cord was applied according to standard protocol after verbal consent was obtained. This was applied to the plantar foot ulcer site in which insurance approval was obtained for. 100% of the product was utilized (epicord). This was further secured in place with a wound veil and Steri-Strips. A secondary dressing was applied and he will keep this clean, dry, and intact until follow-up next week. The indications, benefits, application series, and anticipated healing time was reviewed. Patient will perform daily cleansing of his foot with dressing changes consisting of Dakin's DSD no compression to non epicord application site (s). Patient will maintain heel weightbearing status in cam walking boot assisted with a walker patient has a walker at home. Patient will follow up in 1 week. Patient is high risk for proximal amputation and understands this. (3) Type 2 diabetes mellitus with diabetic polyneuropathy: CODE(S): E11.42 - Type 2 diabetes mellitus with diabetic polyneuropathy
[2022-01-02 10:36] VITALS: BP 118/86; PULSE 85; TEMP 35.7; BMI 23.8
--- NOTE | 2022-01-02 11:37 | PCM.WC.PN ---
History of Present Illness Date of Service: 01/02/22 Chief Complaint: Left foot ulcers x 3 History of Wound: This 61-year-old male seen in the wound care center for chronic left foot ulcerations secondary to peripheral arterial disease and amputations. Patient recently underwent quadruple bypass surgery successfully at [facility]. Patient has stent placed in popliteal artery due to popliteal occlusion and left lower extremity on the hospital previously. Subsequently the next day patient had a wound debridement with amputation of the fourth ray left open with vessel loop closure to the dorsal midfoot and wet-to-dry dressings to the plantar midfoot and medial first metatarsophalangeal joints. At this time he denies any constitutional symptoms, chest pain, calf pain, or shortness of breath. Patient received 6 weeks IV antibiotics at [facility]. He is amendable to proceed with advanced wound healing product application today if it has been approved by the insurance. Objective Data Objective Data Vital Signs: Vital Signs Temp Pulse Resp BP O2 Del Method 96.2 F L 85 16 118/86 H Room Air 01/02/22 10:36 01/02/22 10:36 12/26/21 10:32 01/02/22 10:36 12/26/21 10:32 Oxygen Delivery Method Room Air Weight: 77.564 kg Body Mass Index (BMI) 23.8 Physical Exam Narrative Improve vascularity left lower extremity. Dermatologic: Partial third and fourth ray resection sites with with wound demonstrates granular natured base, decrease in size. Plantar midfoot wound demonstrates fibrogranular base pre and postdebridement, decrease in size. Medial first metatarsal phalangeal joint wound is down to level of capsule there is a bleeding granular wound edge but the base of the wound improving and granulating in nature. Adjacent skin is hairless and atrophic. There is no visualized or palpable bone. New wound to dorsal second digit. All other wounds improving at this time. Wound to second digit at apex of hammertoe formation on the left foot. Demonstrates granular base no signs of infection deep probing or undermining. Musculoskeletal: Partial amputation to left third and fourth ray. Muscular strength 5 out of 5 to bilateral lower extremity compartments No pain with calf squeeze bilateral lower extremities. Debridement Note Debridement Note Post-Debridement Measurements and Additional Note: Post-Debridement Measurements/Treatment ROYCE - Nurse 1 - General Ulcer Assessment Start: 12/19/21 10:12 Freq: Status: Active Protocol: LOWEXT Activity Type Activity Date Activity User E-sign Co-sign Detail Recorded Client Recorded Date Recorded By Document 12/19/21 10:12 [id number] 12/19/21 10:20 Document 12/26/21 10:32 [facility] [id number] 12/26/21 10:42 BM Document 01/02/22 10:36 AK [id number] 01/02/22 10:41 AK 12/19/21 12/26/21 01/02/22 10:12 10:32 10:36 - Today's Visit Information Type of service Follow-up Visit Follow-up Visit Follow-up Visit (Physician/MEASUREMENT SUPERVISOR (Physician/MEASUREMENT SUPERVISOR (Physician/MEASUREMENT SUPERVISOR ) ) ) Arrival Mode Wheelchair Wheelchair Ambulatory Transfer Assistance None None Accompanied by self Patient Identification Verified (Name & Yes Yes Yes ) Patient Requires Transmission-Based No No No Precautions Safety Precautions NA NA Finger Stick Blood Sugar(mg/dl) (if 140 indicated): Blood Sugar Stated by Patient Height and Weight Body Mass Index (BMI) 23.8 23.8 23.8 BMI Classification Normal Normal Normal Vital Signs Temperature (97.8 F-99.1 F) 96.8 F L 96.8 F L 96.2 F L Temperature Source Temporal Temporal Temporal Pulse Rate (60-100) 110 H 93 85 Pulse Location Monitor Monitor Monitor Respiratory Rate (12-18) 18 16 Respiratory rate source Observation Observation Oxygen Delivery Method Room Air Room Air Blood Pressure (90/60-120/80) 144/85 H 118/91 H 118/86 H Blood Pressure Mean (mm Hg) 104 100 96 Source Monitor Monitor Monitor Position Sitting Sitting Blood Pressure Location Left Arm Right Arm History Since Last Visit- (Skip if this is Patient's initial visit) Have you changed medications since your No No No last visit? Any new allergies or adverse reactions No No No Had a fall/change in ADL's that may No No No increase risk of falls Signs or symptoms of abuse and/or No No No neglect since last visit Have you been in the hospital since your No No No last visit? Has dressing in place as prescribed Yes Yes No Has compression in place as prescribed Yes N/A Yes Has offloadiing in place as prescribed Yes Yes Yes Experienced any changes in pain level or No No No management Left Footwear Surgical Shoe Surgical Shoe Regular Shoe with pressure with pressure relief insole relief insole Right Footwear Regular Shoe Regular Shoe Regular Shoe Pain Scale: 0-10 Numeric Is Patient Pain Free? Yes Yes Yes WC - Nurse 1 - General Ulcer Measurement Start: 12/19/21 10:12 Freq: Status: Active Protocol: Activity Type Activity Date Activity User E-sign Co-sign Detail Recorded Client Recorded Date Recorded By Document 12/19/21 10:12 MW [id number] 12/19/21 10:20 MW Document 12/26/21 10:32 BMF [id number] 12/26/21 10:42 BMF Document 01/02/22 10:36 AK [id number] 01/02/22 10:41 AK 12/19/21 12/26/21 01/02/22 10:12 10:32 10:36 Wound Center Nurse 1 8-left 2nd toe ulcer -Combined with other wound No No No -Current Size (cm) - Length 0.5 0.5 0.1 -Current Size (cm) - Width 0.7 0.6 0.1 -Current Size (cm) - Depth 0.1 0.1 0.1 -Total Square Cm 0.35 0.30 0.01 -Date of Last Picture (Recall this 12/19/21 field) -Photo Taken Yes No No -Epithelialization None Present None Present None Present -Tunneling No No No -Undermining/Tunneling No No No -Circular Undermining No No No -Change in Wound Grade/Stage No -Exudate Amt Small None Present None Present -Exudate Type Serosanguineous -Wound Margin Flat & Intact Distinct, Distinct, Outline Outline Attached Attached -Granulation Amt None Present (0 None Present (0 None Present (0 %) %) %) -Granulation Quality N/A N/A -Slough/Fibrin Yes Yes No -Necrosis Amt Large (67-100%) Large (67-100%) None Present (0 %) -Necrotic Tissue Type Adherent Slough Eschar -Structure Exposed N/A N/A -Texture (Berandette-wound Skin Appearance) Assessed, Assessed, No Abnormality, Localized Edema Scarring Assessed -Moisture (Bernadette-wound Skin Appearance) Assessed,Dry/ No Abnormality No Abnormality, Scaly Assessed -Color (Bernadette-wound Skin Appearance) Assessed, Assessed, No Abnormality, Erythema Erythema Assessed -Temperature (Bernadette-wound Skin No Abnormality No Abnormality No Abnormality Appearance) (Pt Warm) (Pt Warm) (Pt Warm) -Tenderness on Palpation (Bernadette-wound No No No Skin Appearance) -Ulcer Cleansing Soap and Water Soap and Water Rinsed/ Irrigated with Saline -Foul Odor after Cleansing No No No -Anesthetic Used 4% Lidocaine 5% Lidocaine 5% Lidocaine Solution Gel Gel #7 Left foot 4th toe amp site -Combined with other wound No No No -Current Size (cm) - Length 1.0 0.5 0.1 -Current Size (cm) - Width 0.5 0.4 0.1 -Current Size (cm) - Depth 0.3 0.3 0.1 -Total Square Cm 0.50 0.20 0.01 -Date of Last Picture (Recall this 12/19/21 field) -Photo Taken Yes No No -Epithelialization None Present Small 1-33% -Tunneling No No No -Undermining/Tunneling No No No -Circular Undermining No No No -Change in Wound Grade/Stage No -Exudate Amt Medium Small None Present -Exudate Type Serosanguineous Serous -Wound Margin Distinct, Distinct, Outline Outline Attached Attached -Granulation Amt Large (67-100%) Large (67-100%) None Present (0 %) -Granulation Quality [place] Red N/A -Slough/Fibrin Yes Yes No -Necrosis Amt Small (1-33%) Small (1-33%) None Present (0 %) -Necrotic Tissue Type Adherent Slough Adherent Slough -Structure Exposed N/A N/A -Texture (Bernadette-wound Skin Appearance) Assessed, Assessed, No Abnormality, Scarring Scarring Assessed -Moisture (Bernadette-wound Skin Appearance) No Abnormality, Assessed No Abnormality, Assessed Assessed -Color (Bernadette-wound Skin Appearance) No Abnormality, Assessed No Abnormality, Assessed Assessed -Temperature (Bernadette-wound Skin No Abnormality No Abnormality No Abnormality Appearance) (Pt Warm) (Pt Warm) (Pt Warm) -Tenderness on Palpation (Bernadette-wound No No No Skin Appearance) -Ulcer Cleansing Soap and Water Soap and Water -Foul Odor after Cleansing No No No -Anesthetic Used 4% Lidocaine 4% Lidocaine 5% Lidocaine Solution Solution Gel #6- L MEDIAL FOOT -Combined with other wound No No No -Current Size (cm) - Length 3.8 4 4 -Current Size (cm) - Width 3.1 3 2.8 -Current Size (cm) - Depth 0.6 0.6 0.1 -Total Square Cm 11.78 12 11.2 -Photo Taken No No No -Epithelialization None Present Small 1-33% -Tunneling No No No -Undermining/Tunneling No No No -Circular Undermining No No No -Change in Wound Grade/Stage No -Exudate Amt Medium Medium Large -Exudate Type Serosanguineous Serosanguineous Yellow/Green -Wound Margin Distinct, Distinct, Distinct, Outline Outline Outline Attached Attached Attached -Granulation Amt Medium (34-66%) Medium (34-66%) Medium (34-66%) -Granulation Quality [place] -Slough/Fibrin Yes Yes -Necrosis Amt Medium (34-66%) Medium (34-66%) Large (67-100%) -Necrotic Tissue Type Adherent Slough Adherent Slough Adherent Slough -Structure Exposed N/A N/A -Texture (Bernadette-wound Skin Appearance) Assessed, Assessed Assessed,Callus Scarring -Moisture (Bernadette-wound Skin Appearance) No Abnormality, Assessed, Assessed, Assessed Maceration Maceration -Color (Bernadette-wound Skin Appearance) No Abnormality, Assessed Assessed Assessed -Temperature (Bernadette-wound Skin No Abnormality No Abnormality No Abnormality Appearance) (Pt Warm) (Pt Warm) (Pt Warm) -Tenderness on Palpation (Bernadette-wound No No No Skin Appearance) -Ulcer Cleansing Soap and Water Soap and Water Rinsed/ Irrigated with Saline -Foul Odor after Cleansing No No No -Anesthetic Used 4% Lidocaine 4% Lidocaine 5% Lidocaine Solution Solution Gel #4- L PLANTAR FOOT -Combined with other wound No No No -Current Size (cm) - Length 2.5 2.7 1.7 -Current Size (cm) - Width 1.5 0.3 0.8 -Current Size (cm) - Depth 0.3 0.3 0.1 -Total Square Cm 3.75 0.81 1.36 -Date of Last Picture (Recall this 12/19/21 field) -Photo Taken Yes No No -Epithelialization None Present Small 1-33% -Tunneling No No No -Undermining/Tunneling No No No -Circular Undermining No No No -Change in Wound Grade/Stage No -Exudate Amt Medium Medium None Present -Exudate Type Serosanguineous Serous -Wound Margin Distinct, Distinct, Distinct, Outline Outline Outline Attached Attached Attached -Granulation Amt Medium (34-66%) Large (67-100%) None Present (0 %) -Granulation Quality [place] Red N/A -Slough/Fibrin Yes Yes No -Necrosis Amt Medium (34-66%) Small (1-33%) None Present (0 %) -Necrotic Tissue Type Adherent Slough Adherent Slough -Structure Exposed N/A N/A -Texture (Bernadette-wound Skin Appearance) Assessed, Assessed, No Abnormality, Localized Edema Scarring Assessed -Moisture (Bernadette-wound Skin Appearance) No Abnormality, Assessed No Abnormality, Assessed Assessed -Color (Bernadette-wound Skin Appearance) No Abnormality, Assessed No Abnormality, Assessed Assessed -Temperature (Bernadette-wound Skin No Abnormality No Abnormality No Abnormality Appearance) (Pt Warm) (Pt Warm) (Pt Warm) -Tenderness on Palpation (Bernadette-wound No No No Skin Appearance) -Ulcer Cleansing Soap and Water Soap and Water Rinsed/ Irrigated with Saline -Foul Odor after Cleansing No No No -Anesthetic Used 4% Lidocaine 4% Lidocaine 5% Lidocaine Solution Solution Gel Lower Limb Edema Present No WC - Nurse 2 - General Ulcer CM Notes Start: 12/19/21 10:12 Freq: Status: Active Protocol: Activity Type Activity Date Activity User E-sign Co-sign Detail Recorded Client Recorded Date Recorded By Document 12/19/21 10:24 [id number] 12/19/21 10:33 Document 12/26/21 10:52 [id number] 12/26/21 11:02 12/19/21 12/26/21 10:24 10:52 Wound Center Nurse 2 8-left 2nd toe ulcer -Correct Patient No No -Correct Side, Site, Position No No -Correct Procedure No No -Procedure Performed No No -Wound/Ulcer Outcome Not Healed Not Healed #7 Left foot 4th toe amp site -Time 10:25 10:54 -Correct Patient Yes Yes -Correct Side, Site, Position Yes Yes -Correct Procedure Yes Yes -Procedure Performed Yes Yes -Type of Procedure Debridement Debridement -Clinical Debridement Subcutaneous Subcutaneous -Tissue Removed Subcutaneous Subcutaneous -Post Debridement (cm) - Length 1.1 0.5 -Post Debridement (cm) - Width 0.6 0.5 -Post Debridement (cm) - Depth 0.3 0.3 -Total Square (Post) (cm) 0.66 0.25 -Area of Debridement (cm) - Length 1.1 0.5 -Area of Debridement (cm) - Width 0.6 0.5 -Total Square (Area) (cm) 0.66 0.25 -Tunneling No No -Undermining/Tunneling No No -Circular Undermining No No -Wound/Ulcer Outcome Not Healed Not Healed -Ulcer Cleansing Rinsed/ Rinsed/ Irrigated with Irrigated with Saline Saline -Foul Odor after Cleansing No No -Bioengineered Tissue No No -Bleeding Controlled with Pressure Pressure -Treatment Response Procedure Procedure Tolerated Well Tolerated Well -Offloading Yes Yes -Type of Offloading Surgical Shoe Surgical Shoe -Debridement - Subq, 1st 20sq cm Yes Yes #6- L MEDIAL FOOT -Time 10:25 10:55 -Correct Patient Yes Yes -Correct Side, Site, Position Yes Yes -Correct Procedure Yes Yes -Procedure Performed Yes Yes -Type of Procedure Debridement Debridement -Clinical Debridement Subcutaneous Muscle / Fascia -Tissue Removed Subcutaneous Muscle -Post Debridement (cm) - Length 3.8 4.1 -Post Debridement (cm) - Width 3.2 3.1 -Post Debridement (cm) - Depth 0.6 0.7 -Total Square (Post) (cm) 12.16 12.71 -Area of Debridement (cm) - Length 3.8 4.1 -Area of Debridement (cm) - Width 3.2 3.1 -Total Square (Area) (cm) 12.16 12.71 -Tunneling No No -Undermining/Tunneling No No -Circular Undermining No No -Wound/Ulcer Outcome Not Healed Not Healed -Ulcer Cleansing Rinsed/ Rinsed/ Irrigated with Irrigated with Saline Saline -Foul Odor after Cleansing No No -Bioengineered Tissue No No -Bleeding Controlled with Pressure Pressure,Silver Nitrate -Treatment Response Procedure Procedure Tolerated Well Tolerated Well -Offloading Yes Yes -Type of Offloading Surgical Shoe Surgical Shoe -Debridement - Subq, 1st 20sq cm No -Debridement - Muscle / Fascia, 1st Yes 20sq cm #4- L PLANTAR FOOT -Time 10:25 10:55 -Correct Patient Yes Yes -Correct Side, Site, Position Yes Yes -Correct Procedure Yes Yes -Procedure Performed Yes Yes -Type of Procedure Debridement Debridement -Clinical Debridement Subcutaneous Subcutaneous -Tissue Removed Subcutaneous Subcutaneous -Post Debridement (cm) - Length 2.5 2.8 -Post Debridement (cm) - Width 1.6 1.3 -Post Debridement (cm) - Depth 0.3 0.2 -Total Square (Post) (cm) 4.00 3.64 -Area of Debridement (cm) - Length 2.5 2.8 -Area of Debridement (cm) - Width 1.6 1.3 -Total Square (Area) (cm) 4.00 3.64 -Tunneling No No -Undermining/Tunneling No No -Circular Undermining No No -Wound/Ulcer Outcome Not Healed Not Healed -Ulcer Cleansing Rinsed/ Rinsed/ Irrigated with Irrigated with Saline Saline -Foul Odor after Cleansing No No -Bioengineered Tissue Yes Yes -Type of Bioengineered Tissue Epicord Epicord -Expiration Date 06/16/26 07/16/26 -Product Lot Number [id number] -Percent Used 100 100 -Lot number of Saline Used [id number] -Bleeding Controlled with Pressure Pressure -Treatment Response Procedure Procedure Tolerated Well Tolerated Well -Offloading Yes Yes -Type of Offloading Surgical Shoe Surgical Shoe -Debridement - Subq, 1st 20sq cm No No -Apply Skin Sub - 1st 25 sq cm - Feet 1 1 -Epicord (per sq cm) 6 6 Pain Scale: 0-10 Numeric Is Patient Pain Free? Yes Yes WC - Nurse 3 - General Ulcer D/C NN Start: 12/19/21 10:12 Freq: Status: Active Protocol: Activity Type Activity Date Activity User E-sign Co-sign Detail Recorded Client Recorded Date Recorded By Document 12/19/21 10:42 [facility] [id number] 12/19/21 10:43 BM Document 12/26/21 11:21 [id number] 12/26/21 11:24 Document 01/02/22 11:12 [facility] [id number] 01/02/22 11:13 BM 12/19/21 12/26/21 01/02/22 10:42 11:21 11:12 Wound Care Nurse 3 8-left 2nd toe ulcer -Ulcer Cleansing Rinsed/ Rinsed/ Rinsed/ Irrigated with Irrigated with Irrigated with Saline Saline Saline -Foul Odor after Cleansing No No No -Negative Pressure Wound Therapy N/A -Primary Dressing Applied Hysept ($) -Other Dressing DAKINS 0.25% dakins WET TO DRY -Primary Dressing Covered/Secured with Dry Gauze & Dry Gauze & Dry Gauze & Roll Gauze, Roll Gauze, Roll Gauze, Secured with Secured with Secured with Tape Tape Tape -Other Covering per mw rn #7 Left foot 4th toe amp site -Ulcer Cleansing Rinsed/ Rinsed/ Rinsed/ Irrigated with Irrigated with Irrigated with Saline Saline Saline -Foul Odor after Cleansing No No No -Negative Pressure Wound Therapy N/A -Other Dressing dakins DAKINS 0.25% dakins per mw WET TO DRY rn -Primary Dressing Covered/Secured with Dry Gauze & Dry Gauze & Dry Gauze & Roll Gauze, Roll Gauze, Roll Gauze, Secured with Secured with Secured with Tape Tape Tape #6- L MEDIAL FOOT -Ulcer Cleansing Not Cleansed Rinsed/ Irrigated with Saline -Foul Odor after Cleansing No No -Negative Pressure Wound Therapy N/A -Other Dressing epicord dakins per mw rn -Primary Dressing Covered/Secured with Dry Gauze & Dry Gauze & Dry Gauze & Roll Gauze, Roll Gauze, Roll Gauze, Secured with Secured with Secured with Tape Tape Tape -Other Covering abd #4- L PLANTAR FOOT -Ulcer Cleansing Not Cleansed -Foul Odor after Cleansing No -Negative Pressure Wound Therapy N/A -Other Dressing epicord epifix -Primary Dressing Covered/Secured with Dry Gauze & Dry Gauze & Roll Gauze, Roll Gauze, Secured with Secured with Tape Tape -Other Covering abd per mw rn Left -Lotion applied to leg before No compression wrap -Compression Wrap Mian Wrap Mian Wrap Mian Wrap -Other mian to secure to secure per mw rn Treatment Response Procedure Procedure Procedure Tolerated Well Tolerated Well Tolerated Well Pain Scale: 0-10 Numeric Is Patient Pain Free? 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 Wounds to left foot are improving at this time. dorsal lateral foot wound improving. Plantar midfoot wound improving. Increased granulation around medial first MPJ and fibrous and subcutaneous tissue was debrided today. New wound to dorsal second digit. Patient is following with vascular surgery as an outpatient. Patient has healthy bleeding upon debridement suggestive of good wound healing potential. Blood thinner use noted. Patient is following with infectious disease and has him going to infusion center for IV antibiotics. To continue as advised. The left first metatarsal phalangeal joint wound, dorsal lateral foot wound and plantar midfoot wounds were debrided down to including level of capsule and tendon of all nonviable tissue without incident. This was performed using 15 blade scalpel and forceps. Hemostasis obtained with light compression. Patient tolerated procedure well. No anesthesia due to neuropathy. Pre and postdebridement measurements documented in nursing notes. He was approved for application of advanced wound healing product and epi cord was applied according to standard protocol after verbal consent was obtained. This was applied to the plantar foot ulcer site in which insurance approval was obtained for. 100% of the product was utilized (epifix 2x2 4 billing unit graft). This was further secured in place with a wound veil and Steri-Strips. A secondary dressing was applied and he will keep this clean, dry, and intact until follow-up next week. The indications, benefits, application series, and anticipated healing time was reviewed. Patient will perform daily cleansing of his foot with dressing changes consisting of Dakin's DSD no compression to non epicord application site (s). Patient will maintain heel weightbearing status in cam walking boot assisted with a walker patient has a walker at home. Patient will follow up in 1 week. Patient is high risk for proximal amputation and understands this. (3) Type 2 diabetes mellitus with diabetic polyneuropathy: CODE(S): E11.42 - Type 2 diabetes mellitus with diabetic polyneuropathy
[2022-01-09 11:33] VITALS: BP 132/79; PULSE 69; TEMP 36.2; BMI 23.8
--- NOTE | 2022-01-09 11:47 | PN.PCM_ITS ---
History of Present Illness Date of Service: 01/09/22 Chief Complaint: Left foot ulcers x 3 History of Wound: This 61-year-old male seen in the wound care center for chronic left foot ulcerations secondary to peripheral arterial disease and amputations. Patient recently underwent quadruple bypass surgery successfully at [facility]. Patient has stent placed in popliteal artery due to popliteal occlusion and left lower extremity on the hospital previously. Subsequently the next day patient had a wound debridement with amputation of the fourth ray left open with vessel loop closure to the dorsal midfoot and wet-to-dry dressings to the plantar midfoot and medial first metatarsophalangeal joints. At this time he denies any constitutional symptoms, chest pain, calf pain, or shortness of breath. Patient received 6 weeks [facility]. He is amendable to proceed with advanced wound healing product application today if it has been approved by the insurance. Objective Data Objective Data Vital Signs: Vital Signs Temp Pulse Resp BP O2 Del Method 97.2 F L 69 16 132/79 H Room Air 01/09/22 11:33 01/09/22 11:33 12/26/21 10:32 01/09/22 11:33 12/26/21 10:32 Oxygen Delivery Method Room Air Weight: 77.564 kg Body Mass Index (BMI) 23.8 Physical Exam Narrative Improve vascularity left lower extremity. Dermatologic: Partial third and fourth ray resection sites with with wound demonstrates granular natured base, decrease in size. Plantar midfoot wound demonstrates fibrogranular base pre and postdebridement, decrease in size. Medial first metatarsal phalangeal joint wound is down to level of capsule there is a bleeding granular wound edge but the base of the wound improving and granulating in nature. Adjacent skin is hairless and atrophic. There is no visualized or palpable bone. New wound to dorsal second digit. All other wounds improving at this time. Wound to second digit at apex of hammertoe formation on the left foot. Demonstrates granular base no signs of infection deep probing or undermining. Musculoskeletal: Partial amputation to left third and fourth ray. Muscular strength 5 out of 5 to bilateral lower extremity compartments No pain with calf squeeze bilateral lower extremities. Debridement Note Debridement Note Post-Debridement Measurements and Additional Note: Post-Debridement Measurements/Treatment ROYCE - Nurse 1 - General Ulcer Assessment Start: 12/19/21 10:12 Freq: Status: Active Protocol: LOWEXT Activity Type Activity Date Activity User E-sign Co-sign Detail Recorded Client Recorded Date Recorded By Document 12/19/21 10:12 [id number] 12/19/21 10:20 Document 12/26/21 10:32 BM [id number] 12/26/21 10:42 BMF Document 01/02/22 10:36 AK [id number] 01/02/22 10:41 AK Document 01/09/22 11:33 AK [id number] 01/09/22 11:37 AK 12/19/21 12/26/21 01/02/22 10:12 10:32 10:36 - Today's Visit Information Type of service Follow-up Visit Follow-up Visit Follow-up Visit (Physician/PUBLIC HOUSING INTERVIEWER (Physician/PUBLIC HOUSING INTERVIEWER (Physician/PUBLIC HOUSING INTERVIEWER ) ) ) Arrival Mode Wheelchair Wheelchair Ambulatory Transfer Assistance None None Accompanied by self Patient Identification Verified (Name & Yes Yes Yes ) Patient Requires Transmission-Based No No No Precautions Safety Precautions NA NA Finger Stick Blood Sugar(mg/dl) (if 140 indicated): Blood Sugar Stated by Patient Height and Weight Body Mass Index (BMI) 23.8 23.8 23.8 BMI Classification Normal Normal Normal Vital Signs Temperature (97.8 F-99.1 F) 96.8 F L 96.8 F L 96.2 F L Temperature Source Temporal Temporal Temporal Pulse Rate (60-100) 110 H 93 85 Pulse Location Monitor Monitor Monitor Respiratory Rate (12-18) 18 16 Respiratory rate source Observation Observation Oxygen Delivery Method Room Air Room Air Blood Pressure (90/60-120/80) 144/85 H 118/91 H 118/86 H Blood Pressure Mean (mm Hg) 104 100 96 Source Monitor Monitor Monitor Position Sitting Sitting Blood Pressure Location Left Arm Right Arm History Since Last Visit- (Skip if this is Patient's initial visit) Have you changed medications since your No No No last visit? Any new allergies or adverse reactions No No No Had a fall/change in ADL's that may No No No increase risk of falls Signs or symptoms of abuse and/or No No No neglect since last visit Have you been in the hospital since your No No No last visit? Has dressing in place as prescribed Yes Yes No Has compression in place as prescribed Yes N/A Yes Has offloadiing in place as prescribed Yes Yes Yes Experienced any changes in pain level or No No No management Left Footwear Surgical Shoe Surgical Shoe Regular Shoe with pressure with pressure relief insole relief insole Right Footwear Regular Shoe Regular Shoe Regular Shoe Pain Scale: 0-10 Numeric Is Patient Pain Free? Yes Yes Yes 01/09/22 11:33 - Today's Visit Information Type of service Follow-up Visit (Physician/PUBLIC HOUSING INTERVIEWER ) Arrival Mode Ambulatory Transfer Assistance Accompanied by Patient Identification Verified (Name & Yes ) Patient Requires Transmission-Based No Precautions Safety Precautions NA Finger Stick Blood Sugar(mg/dl) (if indicated): Blood Sugar Height and Weight Body Mass Index (BMI) 23.8 BMI Classification Normal Vital Signs Temperature (97.8 F-99.1 F) 97.2 F L Temperature Source Temporal Pulse Rate (60-100) 69 Pulse Location Monitor Respiratory Rate (12-18) Respiratory rate source Oxygen Delivery Method Blood Pressure (90/60-120/80) 132/79 H Blood Pressure Mean (mm Hg) 96 Source Monitor Position Blood Pressure Location History Since Last Visit- (Skip if this is Patient's initial visit) Have you changed medications since your No last visit? Any new allergies or adverse reactions No Had a fall/change in ADL's that may No increase risk of falls Signs or symptoms of abuse and/or No neglect since last visit Have you been in the hospital since your No last visit? Has dressing in place as prescribed Yes Has compression in place as prescribed N/A Has offloadiing in place as prescribed N/A Experienced any changes in pain level or No management Left Footwear Regular Shoe Right Footwear Regular Shoe Pain Scale: 0-10 Numeric Is Patient Pain Free? Yes - Nurse 1 - General Ulcer Measurement Start: 12/19/21 10:12 Freq: Status: Active Protocol: Activity Type Activity Date Activity User E-sign Co-sign Detail Recorded Client Recorded Date Recorded By Document 12/19/21 10:12 MW [id number] 12/19/21 10:20 MW Document 12/26/21 10:32 [facility] [id number] 12/26/21 10:42 BMF Document 01/02/22 10:36 AK [id number] 01/02/22 10:41 AK Document 01/09/22 11:33 AK [id number] 01/09/22 11:37 AK 12/19/21 12/26/21 01/02/22 10:12 10:32 10:36 Wound Center Nurse 1 8-left 2nd toe ulcer -Combined with other wound No No No -Current Size (cm) - Length 0.5 0.5 0.1 -Current Size (cm) - Width 0.7 0.6 0.1 -Current Size (cm) - Depth 0.1 0.1 0.1 -Total Square Cm 0.35 0.30 0.01 -Date of Last Picture (Recall this 12/19/21 field) -Photo Taken Yes No No -Epithelialization None Present None Present None Present -Tunneling No No No -Undermining/Tunneling No No No -Circular Undermining No No No -Change in Wound Grade/Stage No -Exudate Amt Small None Present None Present -Exudate Type Serosanguineous -Wound Margin Flat & Intact Distinct, Distinct, Outline Outline Attached Attached -Granulation Amt None Present (0 None Present (0 None Present (0 %) %) %) -Granulation Quality N/A N/A -Slough/Fibrin Yes Yes No -Necrosis Amt Large (67-100%) Large (67-100%) None Present (0 %) -Necrotic Tissue Type Adherent Slough Eschar -Structure Exposed N/A N/A -Texture (Bernadette-wound Skin Appearance) Assessed, Assessed, No Abnormality, Localized Edema Scarring Assessed -Moisture (Bernadette-wound Skin Appearance) Assessed,Dry/ No Abnormality No Abnormality, Scaly Assessed -Color (Bernadette-wound Skin Appearance) Assessed, Assessed, No Abnormality, Erythema Erythema Assessed -Temperature (Bernadette-wound Skin No Abnormality No Abnormality No Abnormality Appearance) (Pt Warm) (Pt Warm) (Pt Warm) -Tenderness on Palpation (Bernadette-wound No No No Skin Appearance) -Ulcer Cleansing Soap and Water Soap and Water Rinsed/ Irrigated with Saline -Foul Odor after Cleansing No No No -Anesthetic Used 4% Lidocaine 5% Lidocaine 5% Lidocaine Solution Gel Gel #7 Left foot 4th toe amp site -Combined with other wound No No No -Current Size (cm) - Length 1.0 0.5 0.1 -Current Size (cm) - Width 0.5 0.4 0.1 -Current Size (cm) - Depth 0.3 0.3 0.1 -Total Square Cm 0.50 0.20 0.01 -Date of Last Picture (Recall this 12/19/21 field) -Photo Taken Yes No No -Epithelialization None Present Small 1-33% -Tunneling No No No -Undermining/Tunneling No No No -Circular Undermining No No No -Change in Wound Grade/Stage No -Exudate Amt Medium Small None Present -Exudate Type Serosanguineous Serous -Wound Margin Distinct, Distinct, Outline Outline Attached Attached -Granulation Amt Large (67-100%) Large (67-100%) None Present (0 %) -Granulation Quality [place] N/A -Slough/Fibrin Yes Yes No -Necrosis Amt Small (1-33%) Small (1-33%) None Present (0 %) -Necrotic Tissue Type Adherent Slough Adherent Slough -Structure Exposed N/A N/A -Texture (Bernadette-wound Skin Appearance) Assessed, Assessed, No Abnormality, Scarring Scarring Assessed -Moisture (Bernadette-wound Skin Appearance) No Abnormality, Assessed No Abnormality, Assessed Assessed -Color (Bernadette-wound Skin Appearance) No Abnormality, Assessed No Abnormality, Assessed Assessed -Temperature (Bernadette-wound Skin No Abnormality No Abnormality No Abnormality Appearance) (Pt Warm) (Pt Warm) (Pt Warm) -Tenderness on Palpation (Bernadette-wound No No No Skin Appearance) -Ulcer Cleansing Soap and Water Soap and Water -Foul Odor after Cleansing No No No -Anesthetic Used 4% Lidocaine 4% Lidocaine 5% Lidocaine Solution Solution Gel #6- L MEDIAL FOOT -Combined with other wound No No No -Current Size (cm) - Length 3.8 4 4 -Current Size (cm) - Width 3.1 3 2.8 -Current Size (cm) - Depth 0.6 0.6 0.1 -Total Square Cm 11.78 12 11.2 -Photo Taken No No No -Epithelialization None Present Small 1-33% -Tunneling No No No -Undermining/Tunneling No No No -Circular Undermining No No No -Change in Wound Grade/Stage No -Exudate Amt Medium Medium Large -Exudate Type Serosanguineous Serosanguineous Yellow/Green -Wound Margin Distinct, Distinct, Distinct, Outline Outline Outline Attached Attached Attached -Granulation Amt Medium (34-66%) Medium (34-66%) Medium (34-66%) -Granulation Quality [place] -Slough/Fibrin Yes Yes -Necrosis Amt Medium (34-66%) Medium (34-66%) Large (67-100%) -Necrotic Tissue Type Adherent Slough Adherent Slough Adherent Slough -Structure Exposed N/A N/A -Texture (Bernadette-wound Skin Appearance) Assessed, Assessed Assessed,Callus Scarring -Moisture (Bernadette-wound Skin Appearance) No Abnormality, Assessed, Assessed, Assessed Maceration Maceration -Color (Bernadette-wound Skin Appearance) No Abnormality, Assessed Assessed Assessed -Temperature (Bernadette-wound Skin No Abnormality No Abnormality No Abnormality Appearance) (Pt Warm) (Pt Warm) (Pt Warm) -Tenderness on Palpation (Bernadette-wound No No No Skin Appearance) -Ulcer Cleansing Soap and Water Soap and Water Rinsed/ Irrigated with Saline -Foul Odor after Cleansing No No No -Anesthetic Used 4% Lidocaine 4% Lidocaine 5% Lidocaine Solution Solution Gel #4- L PLANTAR FOOT -Combined with other wound No No No -Current Size (cm) - Length 2.5 2.7 1.7 -Current Size (cm) - Width 1.5 0.3 0.8 -Current Size (cm) - Depth 0.3 0.3 0.1 -Total Square Cm 3.75 0.81 1.36 -Date of Last Picture (Recall this 12/19/21 field) -Photo Taken Yes No No -Epithelialization None Present Small 1-33% -Tunneling No No No -Undermining/Tunneling No No No -Circular Undermining No No No -Change in Wound Grade/Stage No -Exudate Amt Medium Medium None Present -Exudate Type Serosanguineous Serous -Wound Margin Distinct, Distinct, Distinct, Outline Outline Outline Attached Attached Attached -Granulation Amt Medium (34-66%) Large (67-100%) None Present (0 %) -Granulation Quality [place] N/A -Slough/Fibrin Yes Yes No -Necrosis Amt Medium (34-66%) Small (1-33%) None Present (0 %) -Necrotic Tissue Type Adherent Slough Adherent Slough -Structure Exposed N/A N/A -Texture (Bernadette-wound Skin Appearance) Assessed, Assessed, No Abnormality, Localized Edema Scarring Assessed -Moisture (Bernadette-wound Skin Appearance) No Abnormality, Assessed No Abnormality, Assessed Assessed -Color (Bernadette-wound Skin Appearance) No Abnormality, Assessed No Abnormality, Assessed Assessed -Temperature (Bernadette-wound Skin No Abnormality No Abnormality No Abnormality Appearance) (Pt Warm) (Pt Warm) (Pt Warm) -Tenderness on Palpation (Bernadette-wound No No No Skin Appearance) -Ulcer Cleansing Soap and Water Soap and Water Rinsed/ Irrigated with Saline -Foul Odor after Cleansing No No No -Anesthetic Used 4% Lidocaine 4% Lidocaine 5% Lidocaine Solution Solution Gel Lower Limb Edema Present No 01/09/22 11:33 Wound Center Nurse 1 8-left 2nd toe ulcer -Combined with other wound No -Current Size (cm) - Length 0.2 -Current Size (cm) - Width 0.2 -Current Size (cm) - Depth 0.1 -Total Square Cm 0.04 -Date of Last Picture (Recall this field) -Photo Taken No -Epithelialization -Tunneling No -Undermining/Tunneling No -Circular Undermining No -Change in Wound Grade/Stage No -Exudate Amt Small -Exudate Type Serosanguineous -Wound Margin Distinct, Outline Attached -Granulation Amt Small (1-33%) -Granulation Quality N/A -Slough/Fibrin No -Necrosis Amt None Present (0 %) -Necrotic Tissue Type -Structure Exposed N/A -Texture (Bernadette-wound Skin Appearance) No Abnormality, Assessed -Moisture (Bernadette-wound Skin Appearance) No Abnormality, Assessed -Color (Bernadette-wound Skin Appearance) No Abnormality, Assessed -Temperature (Bernadtete-wound Skin No Abnormality Appearance) (Pt Warm) -Tenderness on Palpation (Bernadette-wound No Skin Appearance) -Ulcer Cleansing Rinsed/ Irrigated with Saline -Foul Odor after Cleansing No -Anesthetic Used 5% Lidocaine Gel #7 Left foot 4th toe amp site -Combined with other wound No -Current Size (cm) - Length 0.2 -Current Size (cm) - Width 0.4 -Current Size (cm) - Depth 0.1 -Total Square Cm 0.08 -Date of Last Picture (Recall this field) -Photo Taken No -Epithelialization -Tunneling No -Undermining/Tunneling No -Circular Undermining No -Change in Wound Grade/Stage No -Exudate Amt Small -Exudate Type Serosanguineous -Wound Margin Distinct, Outline Attached -Granulation Amt Small (1-33%) -Granulation Quality N/A -Slough/Fibrin No -Necrosis Amt Small (1-33%) -Necrotic Tissue Type Adherent Slough -Structure Exposed N/A -Texture (Bernadette-wound Skin Appearance) No Abnormality, Assessed -Moisture (Bernadette-wound Skin Appearance) No Abnormality, Assessed -Color (Bernadette-wound Skin Appearance) No Abnormality, Assessed -Temperature (Bernadette-wound Skin No Abnormality Appearance) (Pt Warm) -Tenderness on Palpation (Bernadette-wound No Skin Appearance) -Ulcer Cleansing Rinsed/ Irrigated with Saline -Foul Odor after Cleansing No -Anesthetic Used 5% Lidocaine Gel #6- L MEDIAL FOOT -Combined with other wound No -Current Size (cm) - Length 4 -Current Size (cm) - Width 2.8 -Current Size (cm) - Depth 0.1 -Total Square Cm 11.2 -Photo Taken No -Epithelialization -Tunneling No -Undermining/Tunneling No -Circular Undermining No -Change in Wound Grade/Stage No -Exudate Amt Small -Exudate Type Serosanguineous -Wound Margin Distinct, Outline Attached -Granulation Amt Small (1-33%) -Granulation Quality N/A -Slough/Fibrin Yes -Necrosis Amt Small (1-33%) -Necrotic Tissue Type Adherent Slough -Structure Exposed N/A -Texture (Bernadette-wound Skin Appearance) No Abnormality, Assessed -Moisture (Bernadette-wound Skin Appearance) No Abnormality, Assessed -Color (Bernadette-wound Skin Appearance) No Abnormality, Assessed -Temperature (Bernadette-wound Skin No Abnormality Appearance) (Pt Warm) -Tenderness on Palpation (Bernadette-wound No Skin Appearance) -Ulcer Cleansing Rinsed/ Irrigated with Saline -Foul Odor after Cleansing No -Anesthetic Used 5% Lidocaine Gel #4- L PLANTAR FOOT -Combined with other wound No -Current Size (cm) - Length 1.5 -Current Size (cm) - Width 1.5 -Current Size (cm) - Depth 0.1 -Total Square Cm 2.25 -Date of Last Picture (Recall this field) -Photo Taken No -Epithelialization -Tunneling No -Undermining/Tunneling No -Circular Undermining No -Change in Wound Grade/Stage No -Exudate Amt Small -Exudate Type Serosanguineous -Wound Margin Distinct, Outline Attached -Granulation Amt Small (1-33%) -Granulation Quality N/A -Slough/Fibrin No -Necrosis Amt None Present (0 %) -Necrotic Tissue Type -Structure Exposed N/A -Texture (Bernadette-wound Skin Appearance) No Abnormality, Assessed -Moisture (Bernadette-wound Skin Appearance) No Abnormality, Assessed -Color (Bernadette-wound Skin Appearance) No Abnormality, Assessed -Temperature (Bernadette-wound Skin No Abnormality Appearance) (Pt Warm) -Tenderness on Palpation (Bernadette-wound No Skin Appearance) -Ulcer Cleansing Rinsed/ Irrigated with Saline -Foul Odor after Cleansing No -Anesthetic Used 5% Lidocaine Gel Lower Limb Edema Present WC - Nurse 2 - General Ulcer CM Notes Start: 12/19/21 10:12 Freq: Status: Active Protocol: Activity Type Activity Date Activity User E-sign Co-sign Detail Recorded Client Recorded Date Recorded By Document 12/19/21 10:24 [id number] 12/19/21 10:33 Document 12/26/21 10:52 [id number] 12/26/21 11:02 Document 01/02/22 11:47 [id number] 01/02/22 12:02 Document 01/09/22 11:17 [id number] 01/09/22 11:29 12/19/21 12/26/21 01/02/22 10:24 10:52 11:47 Wound Center Nurse 2 8-left 2nd toe ulcer -Time 11:48 -Correct Patient No No Yes -Correct Side, Site, Position No No Yes -Correct Procedure No No Yes -Procedure Performed No No Yes -Type of Procedure Debridement -Clinical Debridement Subcutaneous -Tissue Removed Subcutaneous -Post Debridement (cm) - Length 0.2 -Post Debridement (cm) - Width 0.1 -Post Debridement (cm) - Depth 0.1 -Total Square (Post) (cm) 0.02 -Area of Debridement (cm) - Length 0.2 -Area of Debridement (cm) - Width 0.1 -Total Square (Area) (cm) 0.02 -Tunneling No -Undermining/Tunneling No -Circular Undermining No -Wound/Ulcer Outcome Not Healed Not Healed Not Healed -Ulcer Cleansing Rinsed/ Irrigated with Saline -Foul Odor after Cleansing No -Bioengineered Tissue No -Bleeding Controlled with Pressure -Treatment Response Procedure Tolerated Well -Offloading Yes -Type of Offloading Surgical Shoe -Debridement - Subq, 1st 20sq cm No #7 Left foot 4th toe amp site -Time 10: 10:54 11:50 -Correct Patient Yes Yes Yes -Correct Side, Site, Position Yes Yes Yes -Correct Procedure Yes Yes Yes -Procedure Performed Yes Yes Yes -Type of Procedure Debridement Debridement Debridement -Clinical Debridement Subcutaneous Subcutaneous Subcutaneous -Tissue Removed Subcutaneous Subcutaneous Subcutaneous -Post Debridement (cm) - Length 1.1 0.5 0.2 -Post Debridement (cm) - Width 0.6 0.5 0.2 -Post Debridement (cm) - Depth 0.3 0.3 0.2 -Total Square (Post) (cm) 0.66 0.25 0.04 -Area of Debridement (cm) - Length 1.1 0.5 0.2 -Area of Debridement (cm) - Width 0.6 0.5 0.2 -Total Square (Area) (cm) 0.66 0.25 0.04 -Tunneling No No No -Undermining/Tunneling No No No -Circular Undermining No No No -Wound/Ulcer Outcome Not Healed Not Healed Not Healed -Ulcer Cleansing Rinsed/ Rinsed/ Rinsed/ Irrigated with Irrigated with Irrigated with Saline Saline Saline -Foul Odor after Cleansing No No No -Bioengineered Tissue No No No -Bleeding Controlled with Pressure Pressure Pressure -Treatment Response Procedure Procedure Procedure Tolerated Well Tolerated Well Tolerated Well -Offloading Yes Yes Yes -Type of Offloading Surgical Shoe Surgical Shoe Surgical Shoe -Debridement - Subq, 1st 20sq cm Yes Yes No #6- L MEDIAL FOOT -Time 10:25 10:55 11:51 -Correct Patient Yes Yes Yes -Correct Side, Site, Position Yes Yes Yes -Correct Procedure Yes Yes Yes -Procedure Performed Yes Yes Yes -Type of Procedure Debridement Debridement Debridement -Clinical Debridement Subcutaneous Muscle / Fascia Subcutaneous -Tissue Removed Subcutaneous Muscle Subcutaneous -Post Debridement (cm) - Length 3.8 4.1 4.0 -Post Debridement (cm) - Width 3.2 3.1 2.9 -Post Debridement (cm) - Depth 0.6 0.7 0.2 -Total Square (Post) (cm) 12.16 12.71 11.60 -Area of Debridement (cm) - Length 3.8 4.1 4.0 -Area of Debridement (cm) - Width 3.2 3.1 2.9 -Total Square (Area) (cm) 12.16 12.71 11.60 -Tunneling No No No -Undermining/Tunneling No No No -Circular Undermining No No No -Wound/Ulcer Outcome Not Healed Not Healed Not Healed -Ulcer Cleansing Rinsed/ Rinsed/ Rinsed/ Irrigated with Irrigated with Irrigated with Saline Saline Saline -Foul Odor after Cleansing No No No -Bioengineered Tissue No No No -Bleeding Controlled with Pressure Pressure,Silver Pressure Nitrate -Treatment Response Procedure Procedure Procedure Tolerated Well Tolerated Well Tolerated Well -Offloading Yes Yes Yes -Type of Offloading Surgical Shoe Surgical Shoe Surgical Shoe -Debridement - Subq, 1st 20sq cm No No -Debridement - Muscle / Fascia, 1st Yes 20sq cm #4- L PLANTAR FOOT -Time 10:25 10:55 11:52 -Correct Patient Yes Yes Yes -Correct Side, Site, Position Yes Yes Yes -Correct Procedure Yes Yes Yes -Procedure Performed Yes Yes Yes -Type of Procedure Debridement Debridement Debridement -Clinical Debridement Subcutaneous Subcutaneous Subcutaneous -Tissue Removed Subcutaneous Subcutaneous Subcutaneous -Post Debridement (cm) - Length 2.5 2.8 1.8 -Post Debridement (cm) - Width 1.6 1.3 0.8 -Post Debridement (cm) - Depth 0.3 0.2 0.1 -Total Square (Post) (cm) 4.00 3.64 1.44 -Area of Debridement (cm) - Length 2.5 2.8 1.8 -Area of Debridement (cm) - Width 1.6 1.3 0.8 -Total Square (Area) (cm) 4.00 3.64 1.44 -Tunneling No No No -Undermining/Tunneling No No No -Circular Undermining No No No -Wound/Ulcer Outcome Not Healed Not Healed Not Healed -Ulcer Cleansing Rinsed/ Rinsed/ Rinsed/ Irrigated with Irrigated with Irrigated with Saline Saline Saline -Foul Odor after Cleansing No No No -Bioengineered Tissue Yes Yes Yes -Type of Bioengineered Tissue Epicord Epicord Epifix -Expiration Date 06/16/26 07/16/26 08/16/26 -Product Lot Number [id number] -Percent Used 100 100 100 -Lot number of Saline Used [id number] -Bleeding Controlled with Pressure Pressure Pressure -Treatment Response Procedure Procedure Procedure Tolerated Well Tolerated Well Tolerated Well -Offloading Yes Yes Yes -Type of Offloading Surgical Shoe Surgical Shoe Surgical Shoe -Debridement - Subq, 1st 20sq cm No No No -Apply Skin Sub - 1st 25 sq cm - Feet 1 1 1 -Epicord (per sq cm) 6 6 -Epifix (per sq cm) 4 Pain Scale: 0-10 Numeric Is Patient Pain Free? Yes Yes Yes 01/09/22 11:17 Wound Center Nurse 2 8-left 2nd toe ulcer -Time 11:17 -Correct Patient Yes -Correct Side, Site, Position Yes -Correct Procedure Yes -Procedure Performed Yes -Type of Procedure Debridement -Clinical Debridement Subcutaneous -Tissue Removed Subcutaneous -Post Debridement (cm) - Length 0.3 -Post Debridement (cm) - Width 0.2 -Post Debridement (cm) - Depth 0.1 -Total Square (Post) (cm) 0.06 -Area of Debridement (cm) - Length 0.3 -Area of Debridement (cm) - Width 0.2 -Total Square (Area) (cm) 0.06 -Tunneling No -Undermining/Tunneling No -Circular Undermining No -Wound/Ulcer Outcome Not Healed -Ulcer Cleansing Rinsed/ Irrigated with Saline -Foul Odor after Cleansing No -Bioengineered Tissue No -Bleeding Controlled with Pressure -Treatment Response Procedure Tolerated Well -Offloading Yes -Type of Offloading Surgical Shoe -Debridement - Subq, 1st 20sq cm No #7 Left foot 4th toe amp site -Time 11:18 -Correct Patient Yes -Correct Side, Site, Position Yes -Correct Procedure Yes -Procedure Performed Yes -Type of Procedure Debridement -Clinical Debridement Subcutaneous -Tissue Removed Subcutaneous -Post Debridement (cm) - Length 0.3 -Post Debridement (cm) - Width 0.2 -Post Debridement (cm) - Depth 0.2 -Total Square (Post) (cm) 0.06 -Area of Debridement (cm) - Length 0.3 -Area of Debridement (cm) - Width 0.2 -Total Square (Area) (cm) 0.06 -Tunneling No -Undermining/Tunneling No -Circular Undermining No -Wound/Ulcer Outcome Not Healed -Ulcer Cleansing Rinsed/ Irrigated with Saline -Foul Odor after Cleansing No -Bioengineered Tissue No -Bleeding Controlled with Pressure -Treatment Response Procedure Tolerated Well -Offloading Yes -Type of Offloading Surgical Shoe -Debridement - Subq, 1st 20sq cm No #6- L MEDIAL FOOT -Time 11:18 -Correct Patient Yes -Correct Side, Site, Position Yes -Correct Procedure Yes -Procedure Performed Yes -Type of Procedure Debridement -Clinical Debridement Subcutaneous -Tissue Removed Subcutaneous -Post Debridement (cm) - Length 4.1 -Post Debridement (cm) - Width 2.8 -Post Debridement (cm) - Depth 0.1 -Total Square (Post) (cm) 11.48 -Area of Debridement (cm) - Length 4.1 -Area of Debridement (cm) - Width 2.8 -Total Square (Area) (cm) 11.48 -Tunneling No -Undermining/Tunneling No -Circular Undermining No -Wound/Ulcer Outcome Not Healed -Ulcer Cleansing Rinsed/ Irrigated with Saline -Foul Odor after Cleansing No -Bioengineered Tissue No -Bleeding Controlled with Pressure -Treatment Response Procedure Tolerated Well -Offloading Yes -Type of Offloading Surgical Shoe -Debridement - Subq, 1st 20sq cm Yes -Debridement - Muscle / Fascia, 1st 20sq cm #4- L PLANTAR FOOT -Time 11:19 -Correct Patient Yes -Correct Side, Site, Position Yes -Correct Procedure Yes -Procedure Performed Yes -Type of Procedure Debridement -Clinical Debridement Subcutaneous -Tissue Removed Subcutaneous -Post Debridement (cm) - Length 1.8 -Post Debridement (cm) - Width 0.8 -Post Debridement (cm) - Depth 0.1 -Total Square (Post) (cm) 1.44 -Area of Debridement (cm) - Length 1.8 -Area of Debridement (cm) - Width 0.8 -Total Square (Area) (cm) 1.44 -Tunneling No -Undermining/Tunneling No -Circular Undermining No -Wound/Ulcer Outcome Not Healed -Ulcer Cleansing Rinsed/ Irrigated with Saline -Foul Odor after Cleansing No -Bioengineered Tissue Yes -Type of Bioengineered Tissue Epifix -Expiration Date 09/15/26 -Product Lot Number [id number] -Percent Used 100 -Lot number of Saline Used [id number] -Bleeding Controlled with Pressure -Treatment Response Procedure Tolerated Well -Offloading Yes -Type of Offloading Surgical Shoe -Debridement - Subq, 1st 20sq cm No -Apply Skin Sub - 1st 25 sq cm - Feet 1 -Epicord (per sq cm) -Epifix (per sq cm) 4 Pain Scale: 0-10 Numeric Is Patient Pain Free? Yes WC - Nurse 3 - General Ulcer D/C NN Start: 12/19/21 10:12 Freq: Status: Active Protocol: Activity Type Activity Date Activity User E-sign Co-sign Detail Recorded Client Recorded Date Recorded By Document 12/19/21 10:42 [facility] [id number] 12/19/21 10:43 [facility] Document 12/26/21 11:21 [id number] 12/26/21 11:24 Document 01/02/22 11:12 [facility] [id number] 01/02/22 11:13 [facility] Document 01/09/22 11:41 [facility] [id number] 01/09/22 11:42 [facility] 12/19/21 12/26/21 01/02/22 10:42 11:21 11:12 Wound Care Nurse 3 8-left 2nd toe ulcer -Ulcer Cleansing Rinsed/ Rinsed/ Rinsed/ Irrigated with Irrigated with Irrigated with Saline Saline Saline -Foul Odor after Cleansing No No No -Negative Pressure Wound Therapy N/A -Primary Dressing Applied Hysept ($) -Other Dressing DAKINS 0.25% dakins WET TO DRY -Primary Dressing Covered/Secured with Dry Gauze & Dry Gauze & Dry Gauze & Roll Gauze, Roll Gauze, Roll Gauze, Secured with Secured with Secured with Tape Tape Tape -Other Covering per mw rn #7 Left foot 4th toe amp site -Ulcer Cleansing Rinsed/ Rinsed/ Rinsed/ Irrigated with Irrigated with Irrigated with Saline Saline Saline -Foul Odor after Cleansing No No No -Negative Pressure Wound Therapy N/A -Other Dressing dakins DAKINS 0.25% dakins per mw WET TO DRY rn -Primary Dressing Covered/Secured with Dry Gauze & Dry Gauze & Dry Gauze & Roll Gauze, Roll Gauze, Roll Gauze, Secured with Secured with Secured with Tape Tape Tape #6- L MEDIAL FOOT -Ulcer Cleansing Not Cleansed Rinsed/ Irrigated with Saline -Foul Odor after Cleansing No No -Negative Pressure Wound Therapy N/A -Other Dressing epicord dakins per mw rn -Primary Dressing Covered/Secured with Dry Gauze & Dry Gauze & Dry Gauze & Roll Gauze, Roll Gauze, Roll Gauze, Secured with Secured with Secured with Tape Tape Tape -Other Covering abd #4- L PLANTAR FOOT -Ulcer Cleansing Not Cleansed -Foul Odor after Cleansing No -Negative Pressure Wound Therapy N/A -Other Dressing epicord epifix -Primary Dressing Covered/Secured with Dry Gauze & Dry Gauze & Roll Gauze, Roll Gauze, Secured with Secured with Tape Tape -Other Covering abd per mw rn Left -Lotion applied to leg before No compression wrap -Compression Wrap Mian Wrap Mian Wrap Mian Wrap -Other mian to secure to secure per mw rn Treatment Response Procedure Procedure Procedure Tolerated Well Tolerated Well Tolerated Well Pain Scale: 0-10 Numeric Is Patient Pain Free? Yes Yes Yes Teaching: Wound Center Dressing Your Wound -Person Taught Patient -Teaching Method Discussion, Demonstration -Response to teaching Verbalize understanding WC - Visit Discharge Discharge Condition Stable Stable Stable Ambulatory Status Wheelchair Wheelchair Wheelchair Transportation Private Auto Private Auto Private Auto Accompanied by SELF Medication Reconcilliation completed & No provided to patient/care provider Clinical Summary of Care Provided Yes Notes: DRESSING APPLIED PER Juan David MCCALLUM RN 01/09/22 11:41 Wound Care Nurse 3 8-left 2nd toe ulcer -Ulcer Cleansing Rinsed/ Irrigated with Saline -Foul Odor after Cleansing No -Negative Pressure Wound Therapy -Primary Dressing Applied -Other Dressing dakins moist gauze -Primary Dressing Covered/Secured with Dry Gauze & Roll Gauze, Secured with Tape -Other Covering #7 Left foot 4th toe amp site -Ulcer Cleansing Rinsed/ Irrigated with Saline -Foul Odor after Cleansing No -Negative Pressure Wound Therapy -Other Dressing dakins moist gauze -Primary Dressing Covered/Secured with Dry Gauze & Roll Gauze, Secured with Tape #6- L MEDIAL FOOT -Ulcer Cleansing -Foul Odor after Cleansing -Negative Pressure Wound Therapy -Other Dressing epifix -Primary Dressing Covered/Secured with Dry Gauze & Roll Gauze, Secured with Tape -Other Covering abd #4- L PLANTAR FOOT -Ulcer Cleansing -Foul Odor after Cleansing -Negative Pressure Wound Therapy -Other Dressing epifix -Primary Dressing Covered/Secured with Dry Gauze & Roll Gauze, Secured with Tape -Other Covering abd Left -Lotion applied to leg before compression wrap -Compression Wrap Mian Wrap -Other mian to secure drsg Treatment Response Procedure Tolerated Well Pain Scale: 0-10 Numeric Is Patient Pain Free? Yes Teaching: Wound Center Dressing Your Wound -Person Taught -Teaching Method -Response to teaching WC - Visit Discharge Discharge Condition Stable Ambulatory Status Ambulatory, Wheelchair Transportation Private Auto Accompanied by Medication Reconcilliation completed & provided to patient/care provider Clinical Summary of Care Provided Notes: Assessment/Plan Assessment/Plan (1) Peripheral vascular disease, unspecified: CODE(S): I73.9 - Peripheral vascular disease, unspecified (2) Non-pressure chronic ulcer of other part of left foot with necrosis of muscle: CODE(S): L97.523 - Non-pressure chronic ulcer of other 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 Wounds to left foot are improving at this time. dorsal lateral foot wound improving. Plantar midfoot wound improving. Increased granulation around media l first MPJ and fibrous and subcutaneous tissue was debrided today. New wound to dorsal second digit. Patient is following with vascular surgery as an outpatient. Patient has healthy bleeding upon debridement suggestive of good wound healing potential. Blood thinner use noted. Patient is following with infectious disease and has him going to infusion center for IV antibiotics. To continue as advised. The left first metatarsal phalangeal joint wound, dorsal lateral foot wound and plantar midfoot wounds were debrided down to including level of capsule and tendon of all nonviable tissue without incident. This was performed using 15 blade scalpel and forceps. Hemostasis obtained with light compression. Patient tolerated procedure well. No anesthesia due to neuropathy. Pre and postdebr idement measurements documented in nursing notes. He was approved for application of advanced wound healing product and epi cord was applied according to standard protocol after verbal consent was obtained. This was applied to the plantar foot ulcer site in which insurance approval was obtained for. 100% of the product was utilized (epifix 2x2 4 billing unit graft). This was further secured in place with a wound veil and Steri-Strips. A secondary dressing was applied and he will keep this clean, dry, and intact until follow-up next week. The indications, benefits, application series, and anticipated healing time was reviewed. Patient will perform daily cleansing of his foot with dressing changes consisting of Dakin's DSD no compression to non epicord application site (s). Patient will maintain heel weightbearing status in cam walking boot assisted with a walker patient has a walker at home. Patient will follow up in 1 week. Patient is high risk for proximal amputation and understands this. (3) Type 2 diabetes mellitus with diabetic polyneuropathy: CODE(S): E11.42 - Type 2 diabetes mellitus with diabetic polyneuropathy
== END 2022-01-15 23:59 | disposition home or self-care (01) ==
LOC: WC 10:45
PROVIDERS: PCP Student in an Organized Health Care Education/Training Program; Visit Provider Podiatrist
DX: L97.523 Non-pressure chronic ulcer of other part of left foot with necrosis of muscle (principal); E11.42 Type 2 diabetes mellitus with diabetic polyneuropathy; I73.9 Peripheral vascular disease, unspecified
CPT/HCPCS: 11042; 11043; 15275; Q4186; Q4187

== ENCOUNTER 2022-02-13 10:30 | Outpatient (RCR) | payer OTHER, SELFPAY ==
[2022-01-16 00:26] VITALS: BP 132/79; PULSE 69; RESP 16; TEMP 36.2; BMI 23.8
[2022-01-16 11:40] VITALS: BMI 23.8
--- NOTE | 2022-01-16 12:11 | PN.PCM_ITS ---
History of Present Illness Date of Service: 01/16/22 Chief Complaint: Left foot ulcers x 3 History of Wound: This 61-year-old male seen in the wound care center for chronic left foot ulcerations secondary to peripheral arterial disease and amputations. Patient recently underwent quadruple bypass surgery successfully at [facility]. Patient has stent placed in popliteal artery due to popliteal occlusion and left lower extremity on the hospital previously. Subsequently the next day patient had a wound debridement with amputation of the fourth ray left open with vessel loop closure to the dorsal midfoot and wet-to-dry dressings to the plantar midfoot and medial first metatarsophalangeal joints. At this time he denies any constitutional symptoms, chest pain, calf pain, or shortness of breath. Patient received 6 weeks IV antibiotics at [facility]. He is amendable to proceed with advanced wound healing product application today if it has been approved by the insurance. Objective Data Objective Data Vital Signs: Vital Signs Temp Pulse Resp BP 97.2 F L 69 16 132/79 H 01/16/22 00:26 01/16/22 00:26 01/16/22 00:26 01/16/22 00:26 Weight: 77.564 kg Body Mass Index (BMI) 23.8 Physical Exam Narrative Improve vascularity left lower extremity. Dermatologic: Partial third and fourth ray resection sites with with wound demonstrates granular natured base, decrease in size. Plantar midfoot wound demonstrates fibrogranular base pre and postdebridement, decrease in size. Medial first metatarsal phalangeal joint wound is down to level of capsule there is a bleeding granular wound edge but the base of the wound improving and granulating in nature. Adjacent skin is hairless and atrophic. There is no visualized or palpable bone. New wound to dorsal second digit. All other wounds improving at this time. Wound to second digit at apex of hammertoe formation on the left foot. Demonstrates granular base no signs of infection deep probing or undermining. Musculoskeletal: Partial amputation to left third and fourth ray. Muscular strength 5 out of 5 to bilateral lower extremity compartments No pain with calf squeeze bilateral lower extremities. Debridement Note Debridement Note Post-Debridement Measurements and Additional Note: Post-Debridement Measurements/Treatment ROYCE - Nurse 1 - General Ulcer Assessment Start: 01/16/22 11:40 Freq: Status: Active Protocol: MONICA Activity Type Activity Date Activity User E-sign Co-sign Detail Recorded Client Recorded Date Recorded By Document 01/16/22 11:40 UT [id number] 01/16/22 11:47 EVA 01/16/22 11:40 - Today's Visit Information Type of service Follow-up Visit (Physician/SENIOR [employer] ) Arrival Mode Ambulatory, Wheelchair Patient Identification Verified (Name & Yes ) Patient Requires Transmission-Based No Precautions Safety Precautions NA Height and Weight Body Mass Index (BMI) 23.8 BMI Classification Normal Pain Scale: 0-10 Numeric Is Patient Pain Free? Yes - Nurse 1 - General Ulcer Measurement Start: 01/16/22 11:40 Freq: Status: Active Protocol: Activity Type Activity Date Activity User E-sign Co-sign Detail Recorded Client Recorded Date Recorded By Document 01/16/22 11:40 UT [id number] 01/16/22 11:47 EVA 01/16/22 11:40 Wound Center Nurse 1 8-left 2nd toe ulcer -Combined with other wound No -Current Size (cm) - Length 0.2 -Current Size (cm) - Width 0.2 -Current Size (cm) - Depth 0.1 -Total Square Cm 0.04 -Photo Taken No -Tunneling No -Undermining/Tunneling No -Circular Undermining No -Change in Wound Grade/Stage No -Exudate Amt Small -Exudate Type Serosanguineous -Wound Margin Distinct, Outline Attached -Granulation Amt Small (1-33%) -Granulation Quality [place] -Slough/Fibrin No -Necrosis Amt None Present (0 %) -Structure Exposed N/A -Texture (Bernadette-wound Skin Appearance) No Abnormality, Assessed -Moisture (Bernadette-wound Skin Appearance) No Abnormality, Assessed -Color (Bernadette-wound Skin Appearance) No Abnormality, Assessed -Temperature (Bernadette-wound Skin No Abnormality Appearance) (Pt Warm) -Tenderness on Palpation (Bernadette-wound No Skin Appearance) -Ulcer Cleansing Soap and Water -Foul Odor after Cleansing No -Anesthetic Used 5% Lidocaine Gel #7 Left foot 4th toe amp site -Combined with other wound No -Current Size (cm) - Length 0.2 -Current Size (cm) - Width 0.2 -Current Size (cm) - Depth 0.2 -Total Square Cm 0.04 -Photo Taken No -Tunneling No -Undermining/Tunneling No -Circular Undermining No -Change in Wound Grade/Stage No -Exudate Amt Small -Exudate Type Serosanguineous -Wound Margin Distinct, Outline Attached -Granulation Amt Small (1-33%) -Granulation Quality [place] -Slough/Fibrin No -Necrosis Amt None Present (0 %) -Structure Exposed N/A -Texture (Bernadette-wound Skin Appearance) No Abnormality, Assessed -Moisture (Bernadette-wound Skin Appearance) No Abnormality, Assessed -Color (Bernadette-wound Skin Appearance) No Abnormality, Assessed -Temperature (Bernadette-wound Skin No Abnormality Appearance) (Pt Warm) -Tenderness on Palpation (Bernadette-wound No Skin Appearance) -Ulcer Cleansing Soap and Water -Foul Odor after Cleansing No -Anesthetic Used 5% Lidocaine Gel #6- L MEDIAL FOOT -Combined with other wound No -Current Size (cm) - Length 3.4 -Current Size (cm) - Width 2.5 -Current Size (cm) - Depth 1.1 -Total Square Cm 8.50 -Photo Taken No -Tunneling No -Undermining/Tunneling No -Circular Undermining No -Change in Wound Grade/Stage No -Exudate Amt Medium -Exudate Type Serosanguineous -Wound Margin Distinct, Outline Attached -Granulation Amt Medium (34-66%) -Granulation Quality [place] -Slough/Fibrin Yes -Necrosis Amt Medium (34-66%) -Necrotic Tissue Type Adherent Slough -Structure Exposed N/A -Texture (Bernadette-wound Skin Appearance) No Abnormality, Assessed -Moisture (Bernadette-wound Skin Appearance) No Abnormality, Assessed -Color (Bernadette-wound Skin Appearance) No Abnormality, Assessed -Temperature (Bernadette-wound Skin No Abnormality Appearance) (Pt Warm) -Tenderness on Palpation (Bernadette-wound No Skin Appearance) -Ulcer Cleansing Soap and Water -Foul Odor after Cleansing No -Anesthetic Used 5% Lidocaine Gel #4- L PLANTAR FOOT -Combined with other wound No -Current Size (cm) - Length 1.2 -Current Size (cm) - Width 0.8 -Current Size (cm) - Depth 0.1 -Total Square Cm 0.96 -Photo Taken Yes -Tunneling No -Undermining/Tunneling No -Circular Undermining No -Change in Wound Grade/Stage No -Exudate Amt Medium -Exudate Type Serosanguineous -Wound Margin Distinct, Outline Attached -Granulation Amt None Present (0 %) -Granulation Quality N/A -Slough/Fibrin No -Necrosis Amt None Present (0 %) -Structure Exposed N/A -Texture (Bernadette-wound Skin Appearance) No Abnormality, Assessed -Moisture (Bernadette-wound Skin Appearance) No Abnormality, Assessed -Color (Bernadette-wound Skin Appearance) No Abnormality, Assessed -Temperature (Bernadette-wound Skin No Abnormality Appearance) (Pt Warm) -Tenderness on Palpation (Bernadette-wound No Skin Appearance) -Ulcer Cleansing Rinsed/ Irrigated with Saline -Foul Odor after Cleansing No -Anesthetic Used 5% Lidocaine Gel WC - Nurse 2 - General Ulcer CM Notes Start: 01/16/22 11:40 Freq: Status: Active Protocol: Activity Type Activity Date Activity User E-sign Co-sign Detail Recorded Client Recorded Date Recorded By Document 01/16/22 12:05 ORESTES [id number] 01/16/22 12:10 ORESTES 01/16/22 12:05 Wound Center Nurse 2 8-left 2nd toe ulcer -Time 12:05 -Correct Patient Yes -Correct Side, Site, Position Yes -Correct Procedure Yes -Procedure Performed Yes -Type of Procedure Debridement -Clinical Debridement Subcutaneous -Tissue Removed Subcutaneous -Post Debridement (cm) - Length 0.3 -Post Debridement (cm) - Width 0.2 -Post Debridement (cm) - Depth 0.1 -Total Square (Post) (cm) 0.06 -Area of Debridement (cm) - Length 0.3 -Area of Debridement (cm) - Width 0.2 -Total Square (Area) (cm) 0.06 -Tunneling No -Undermining/Tunneling No -Circular Undermining No -Wound/Ulcer Outcome Not Healed -Ulcer Cleansing Rinsed/ Irrigated with Saline -Foul Odor after Cleansing No -Bioengineered Tissue No -Bleeding Controlled with Pressure -Treatment Response Procedure Tolerated Well -Offloading Yes -Type of Offloading Surgical Shoe -Debridement - Subq, 1st 20sq cm Yes #7 Left foot 4th toe amp site -Time 12:07 -Correct Patient Yes -Correct Side, Site, Position Yes -Correct Procedure Yes -Procedure Performed Yes -Type of Procedure Debridement -Clinical Debridement Subcutaneous -Tissue Removed Subcutaneous -Post Debridement (cm) - Length 0.3 -Post Debridement (cm) - Width 0.2 -Post Debridement (cm) - Depth 0.2 -Total Square (Post) (cm) 0.06 -Area of Debridement (cm) - Length 0.3 -Area of Debridement (cm) - Width 0.2 -Total Square (Area) (cm) 0.06 -Tunneling No -Undermining/Tunneling No -Circular Undermining No -Wound/Ulcer Outcome Not Healed -Ulcer Cleansing Rinsed/ Irrigated with Saline -Foul Odor after Cleansing No -Bioengineered Tissue No -Bleeding Controlled with Pressure -Treatment Response Procedure Tolerated Well -Offloading Yes -Type of Offloading Surgical Shoe -Debridement - Subq, 1st 20sq cm No #6- L MEDIAL FOOT -Time 12:08 -Correct Patient Yes -Correct Side, Site, Position Yes -Correct Procedure Yes -Procedure Performed Yes -Type of Procedure Debridement -Clinical Debridement Subcutaneous -Tissue Removed Subcutaneous -Post Debridement (cm) - Length 3.5 -Post Debridement (cm) - Width 2.5 -Post Debridement (cm) - Depth 1.1 -Total Square (Post) (cm) 8.75 -Area of Debridement (cm) - Length 3.5 -Area of Debridement (cm) - Width 2.5 -Total Square (Area) (cm) 8.75 -Tunneling No -Undermining/Tunneling No -Circular Undermining No -Wound/Ulcer Outcome Not Healed -Ulcer Cleansing Rinsed/ Irrigated with Saline -Foul Odor after Cleansing No -Bioengineered Tissue No -Bleeding Controlled with Pressure -Treatment Response Procedure Tolerated Well -Offloading Yes -Type of Offloading Surgical Shoe -Debridement - Subq, 1st 20sq cm No #4- L PLANTAR FOOT -Time 12:09 -Correct Patient Yes -Correct Side, Site, Position Yes -Correct Procedure Yes -Procedure Performed Yes -Type of Procedure Debridement -Clinical Debridement Subcutaneous -Tissue Removed Subcutaneous -Post Debridement (cm) - Length 1.2 -Post Debridement (cm) - Width 0.9 -Post Debridement (cm) - Depth 0.1 -Total Square (Post) (cm) 1.08 -Area of Debridement (cm) - Length 1.2 -Area of Debridement (cm) - Width 0.9 -Total Square (Area) (cm) 1.08 -Tunneling No -Undermining/Tunneling No -Circular Undermining No -Wound/Ulcer Outcome Not Healed -Ulcer Cleansing Rinsed/ Irrigated with Saline -Foul Odor after Cleansing No -Bioengineered Tissue Yes -Type of Bioengineered Tissue Epifix 18mm Disc -Expiration Date 10/16/26 -Product Lot Number [id number] -Percent Used 100 -Lot number of Saline Used [id number] -Bleeding Controlled with Pressure -Treatment Response Procedure Tolerated Well -Offloading Yes -Type of Offloading Surgical Shoe -Debridement - Subq, 1st 20sq cm No -Apply Skin Sub - 1st 25 sq cm - Feet 1 -Epifix 18mm Disc 3 Pain Scale: 0-10 Numeric Is Patient Pain Free? Yes Assessment/Plan Assessment/Plan (1) Peripheral vascular disease, unspecified: CODE(S): I73.9 - Peripheral vascular disease, unspecified (2) Non-pressure chronic ulcer of other part of left foot with necrosis of m uscle: CODE(S): L97.523 - Non-pressure chronic ulcer of other 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 Wounds to left foot are improving at this time. dorsal lateral foot wound improving. Plantar midfoot wound improving. Increased granulation around medial first MPJ and fibrous and subcutaneous tissue was debrided today. New wound to dorsal second digit. Patient is following with vascular surgery as an outpatient. Patient has healthy bleeding upon debridement suggestive of good wound healing potential. Blood thinner use noted. Patient is following with infectious disease and has him going to infusion center for IV antibiotics. To continue as advised. The left first metatarsal phalangeal joint wound, dorsal lateral foot wound and plantar midfoot wounds were debrided down to including level of capsule and tendon of all nonviable tissue without incident. This was performed using 15 blade scalpel and forceps. Hemostasis obtained with light compression. Patient tolerated procedure well. No anesthesia due to neuropathy. Pre and postdebridement measurements documented in nursing notes. He was approved for application of advanced wound healing product and epi cord was applied according to standard protocol after verbal consent was obtained. This was applied to the plantar foot ulcer site in which insurance approval was obtained for. 100% of the product was utilized (epifix 2x2 4 billing unit graft). This was further secured in place with a wound veil and Steri-Strips. A secondary dressing was applied and he will keep this clean, dry, and intact until follow-up next week. The indications, benefits, application series, and anticipated healing time was reviewed. Patient will perform daily cleansing of his foot with dressing changes consisting of Dakin's DSD no compression to non epicord application site (s). Patient will maintain heel weightbearing status in cam walking boot assisted with a walker patient has a walker at home. Patient will follow up in 1 week. Patient is high risk for proximal amputation and understands this. (3) Type 2 diabetes mellitus with diabetic polyneuropathy: CODE(S): E11.42 - Type 2 diabetes mellitus with diabetic polyneuropathy
[2022-01-23 10:03] VITALS: BP 97/67; PULSE 80; RESP 18; TEMP 36.1; BMI 23.8
--- NOTE | 2022-01-23 10:46 | PCM.WC.PN ---
History of Present Illness Date of Service: 01/23/22 Chief Complaint: Left foot ulcers x 3 History of Wound: This 61-year-old male seen in the wound care center for chronic left foot ulcerations secondary to peripheral arterial disease and amputations. Patient recently underwent quadruple bypass surgery successfully at [facility]. Patient has stent placed in popliteal artery due to popliteal occlusion and left lower extremity on the hospital previously. Subsequently the next day patient had a wound debridement with amputation of the fourth ray left open with vessel loop closure to the dorsal midfoot and wet-to-dry dressings to the plantar midfoot and medial first metatarsophalangeal joints. At this time he denies any constitutional symptoms, chest pain, calf pain, or shortness of breath. Patient received 6 weeks IV antibiotics at [facility]. He is amendable to proceed with advanced wound healing product application today if it has been approved by the insurance. Objective Data Objective Data Vital Signs: Vital Signs Temp Pulse Resp BP O2 Del Method 97 F L 80 18 97/67 Room Air 01/23/22 10:03 01/23/22 10:03 01/23/22 10:03 01/23/22 10:03 01/23/22 10:03 Oxygen Delivery Method Room Air Weight: 77.564 kg Body Mass Index (BMI) 23.8 Physical Exam Narrative Improve vascularity left lower extremity. Dermatologic: Partial third and fourth ray resection sites with with wound demonstrates granular natured base, decrease in size. Plantar midfoot wound demonstrates fibrogranular base pre and postdebridement, decrease in size. Medial first metatarsal phalangeal joint wound is down to level of capsule there is a bleeding granular wound edge but the base of the wound improving and granulating in nature. Adjacent skin is hairless and atrophic. There is no visualized or palpable bone. New wound to dorsal second digit. All other wounds improving at this time. Wound to second digit at apex of hammertoe formation on the left foot. Demonstrates granular base no signs of infection deep probing or undermining. Musculoskeletal: Partial amputation to left third and fourth ray. Muscular strength 5 out of 5 to bilateral lower extremity compartments No pain with calf squeeze bilateral lower extremities. Debridement Note Debridement Note Post-Debridement Measurements and Additional Note: Post-Debridement Measurements/Treatment WC - Nurse 1 - General Ulcer Assessment Start: 01/16/22 11:40 Freq: Status: Active Protocol: MONICA Activity Type Activity Date Activity User E-sign Co-sign Detail Recorded Client Recorded Date Recorded By Document 01/16/22 11:40 AK [id number] 01/16/22 11:47 MT Document 01/23/22 10:03 CA [id number] 01/23/22 10:13 CA 01/16/22 01/23/22 11:40 10:03 - Today's Visit Information Type of service Follow-up Visit Follow-up Visit (Physician/AOC AADC OPERATIONS STAFF OFFICER (Physician/AOC AADC OPERATIONS STAFF OFFICER ) ) Arrival Mode Ambulatory, Ambulatory, Wheelchair Wheelchair Accompanied by self Patient Identification Verified (Name & Yes Yes ) Patient Requires Transmission-Based No Precautions Safety Precautions NA Fall Prevention Height and Weight Body Mass Index (BMI) 23.8 23.8 BMI Classification Normal Normal Vital Signs Temperature (97.8 F-99.1 F) 97 F L Temperature Source Temporal Pulse Rate (60-100) 80 Pulse Location Monitor Respiratory Rate (12-18) 18 Respiratory rate source Observation Oxygen Delivery Method Room Air Blood Pressure (90/60-120/80) 97/67 Blood Pressure Mean (mm Hg) 77 Source Monitor Position Sitting Blood Pressure Location Left Arm History Since Last Visit- (Skip if this is Patient's initial visit) Have you been in the hospital since your No last visit? Has dressing in place as prescribed Yes Has compression in place as prescribed Yes Has offloadiing in place as prescribed Yes Experienced any changes in pain level or Yes management Left Footwear Surgical Shoe with pressure relief insole Right Footwear Regular Shoe Pain Scale: 0-10 Numeric Is Patient Pain Free? Yes Yes - Nurse 1 - General Ulcer Measurement Start: 01/16/22 11:40 Freq: Status: Active Protocol: Activity Type Activity Date Activity User E-sign Co-sign Detail Recorded Client Recorded Date Recorded By Document 01/16/22 11:40 AK [id number] 01/16/22 11:47 MT Document 01/23/22 10:03 CA [id number] 01/23/22 10:13 CA 01/16/22 01/23/22 11:40 10:03 Wound Center Nurse 1 8-left 2nd toe ulcer -Combined with other wound No -Current Size (cm) - Length 0.2 0.1 -Current Size (cm) - Width 0.2 0.1 -Current Size (cm) - Depth 0.1 0.1 -Total Square Cm 0.04 0.01 -Photo Taken No -Epithelialization Large 67-100% -Tunneling No -Undermining/Tunneling No -Circular Undermining No -Change in Wound Grade/Stage No -Exudate Amt Small -Exudate Type Serosanguineous -Wound Margin Distinct, Outline Attached -Granulation Amt Small (1-33%) -Granulation Quality Malmo -Slough/Fibrin No -Necrosis Amt None Present (0 %) -Structure Exposed N/A -Texture (Bernadette-wound Skin Appearance) No Abnormality, Assessed -Moisture (Bernadette-wound Skin Appearance) No Abnormality, Assessed -Color (Bernadette-wound Skin Appearance) No Abnormality, Assessed -Temperature (Bernadette-wound Skin No Abnormality Appearance) (Pt Warm) -Tenderness on Palpation (Bernadette-wound No Skin Appearance) -Ulcer Cleansing Soap and Water -Foul Odor after Cleansing No -Anesthetic Used 5% Lidocaine Gel #7 Left foot 4th toe amp site -Combined with other wound No -Current Size (cm) - Length 0.2 0.1 -Current Size (cm) - Width 0.2 0.1 -Current Size (cm) - Depth 0.2 0.1 -Total Square Cm 0.04 0.01 -Photo Taken No -Tunneling No -Undermining/Tunneling No -Circular Undermining No -Change in Wound Grade/Stage No -Exudate Amt Small -Exudate Type Serosanguineous -Wound Margin Distinct, Outline Attached -Granulation Amt Small (1-33%) -Granulation Quality Mal[place] -Slough/Fibrin No -Necrosis Amt None Present (0 %) -Structure Exposed N/A -Texture (Bernadette-wound Skin Appearance) No Abnormality, Assessed -Moisture (Bernadette-wound Skin Appearance) No Abnormality, Assessed -Color (Bernadette-wound Skin Appearance) No Abnormality, Assessed -Temperature (Bernadette-wound Skin No Abnormality Appearance) (Pt Warm) -Tenderness on Palpation (Bernadette-wound No Skin Appearance) -Ulcer Cleansing Soap and Water -Foul Odor after Cleansing No -Anesthetic Used 5% Lidocaine Gel #6- L MEDIAL FOOT -Combined with other wound No -Current Size (cm) - Length 3.4 3.0 -Current Size (cm) - Width 2.5 2.6 -Current Size (cm) - Depth 1.1 0.1 -Total Square Cm 8.50 7.80 -Photo Taken No -Tunneling No -Undermining/Tunneling No Yes -Undermining/Tunneling Starts (O'clock 2 ) -Undermining/Tunneling Ends (O'clock) 4 -Maximum Distance (cm) 1.4 -Circular Undermining No -Change in Wound Grade/Stage No -Exudate Amt Medium Medium -Exudate Type Serosanguineous Serosanguineous -Wound Margin Distinct, Flat & Intact Outline Attached -Granulation Amt Medium (34-66%) Medium (34-66%) -Granulation Quality Malmo Pale,Malmo -Slough/Fibrin Yes -Necrosis Amt Medium (34-66%) Medium (34-66%) -Necrotic Tissue Type Adherent Slough Adherent Slough -Structure Exposed N/A -Texture (Bernadette-wound Skin Appearance) No Abnormality, Assessed Assessed -Moisture (Bernadette-wound Skin Appearance) No Abnormality, Assessed Assessed -Color (Bernadette-wound Skin Appearance) No Abnormality, Assessed Assessed -Temperature (Bernadette-wound Skin No Abnormality Appearance) (Pt Warm) -Tenderness on Palpation (Bernadette-wound No No Skin Appearance) -Ulcer Cleansing Soap and Water Soap and Water -Foul Odor after Cleansing No No -Anesthetic Used 5% Lidocaine 4% Lidocaine Gel Solution #4- L PLANTAR FOOT -Combined with other wound No -Current Size (cm) - Length 1.2 1.7 -Current Size (cm) - Width 0.8 0.7 -Current Size (cm) - Depth 0.1 0.4 -Total Square Cm 0.96 1.19 -Photo Taken Yes -Tunneling No -Undermining/Tunneling No -Circular Undermining No -Change in Wound Grade/Stage No -Exudate Amt Medium Small -Exudate Type Serosanguineous Serosanguineous -Wound Margin Distinct, Flat & Intact Outline Attached -Granulation Amt None Present (0 Large (67-100%) %) -Granulation Quality N/A Pale,Malmo -Slough/Fibrin No -Necrosis Amt None Present (0 Small (1-33%) %) -Necrotic Tissue Type Adherent Slough -Structure Exposed N/A -Texture (Bernadette-wound Skin Appearance) No Abnormality, Assessed Assessed -Moisture (Bernadette-wound Skin Appearance) No Abnormality, Assessed Assessed -Color (Bernadette-wound Skin Appearance) No Abnormality, Assessed Assessed -Temperature (Bernadette-wound Skin No Abnormality No Abnormality Appearance) (Pt Warm) (Pt Warm) -Tenderness on Palpation (Bernadette-wound No No Skin Appearance) -Ulcer Cleansing Rinsed/ Soap and Water Irrigated with Saline -Foul Odor after Cleansing No No -Anesthetic Used 5% Lidocaine 4% Lidocaine Gel Solution Lower Limb Edema Present NA WC - Nurse 2 - General Ulcer CM Notes Start: 01/16/22 11:40 Freq: Status: Active Protocol: Activity Type Activity Date Activity User E-sign Co-sign Detail Recorded Client Recorded Date Recorded By Document 01/16/22 12:05 ORESTES [id number] 01/16/22 12:10 ORESTES 01/16/22 12:05 Wound Center Nurse 2 8-left 2nd toe ulcer -Time 12:05 -Correct Patient Yes -Correct Side, Site, Position Yes -Correct Procedure Yes -Procedure Performed Yes -Type of Procedure Debridement -Clinical Debridement Subcutaneous -Tissue Removed Subcutaneous -Post Debridement (cm) - Length 0.3 -Post Debridement (cm) - Width 0.2 -Post Debridement (cm) - Depth 0.1 -Total Square (Post) (cm) 0.06 -Area of Debridement (cm) - Length 0.3 -Area of Debridement (cm) - Width 0.2 -Total Square (Area) (cm) 0.06 -Tunneling No -Undermining/Tunneling No -Circular Undermining No -Wound/Ulcer Outcome Not Healed -Ulcer Cleansing Rinsed/ Irrigated with Saline -Foul Odor after Cleansing No -Bioengineered Tissue No -Bleeding Controlled with Pressure -Treatment Response Procedure Tolerated Well -Offloading Yes -Type of Offloading Surgical Shoe -Debridement - Subq, 1st 20sq cm Yes #7 Left foot 4th toe amp site -Time 12:07 -Correct Patient Yes -Correct Side, Site, Position Yes -Correct Procedure Yes -Procedure Performed Yes -Type of Procedure Debridement -Clinical Debridement Subcutaneous -Tissue Removed Subcutaneous -Post Debridement (cm) - Length 0.3 -Post Debridement (cm) - Width 0.2 -Post Debridement (cm) - Depth 0.2 -Total Square (Post) (cm) 0.06 -Area of Debridement (cm) - Length 0.3 -Area of Debridement (cm) - Width 0.2 -Total Square (Area) (cm) 0.06 -Tunneling No -Undermining/Tunneling No -Circular Undermining No -Wound/Ulcer Outcome Not Healed -Ulcer Cleansing Rinsed/ Irrigated with Saline -Foul Odor after Cleansing No -Bioengineered Tissue No -Bleeding Controlled with Pressure -Treatment Response Procedure Tolerated Well -Offloading Yes -Type of Offloading Surgical Shoe -Debridement - Subq, 1st 20sq cm No #6- L MEDIAL FOOT -Time 12:08 -Correct Patient Yes -Correct Side, Site, Position Yes -Correct Procedure Yes -Procedure Performed Yes -Type of Procedure Debridement -Clinical Debridement Subcutaneous -Tissue Removed Subcutaneous -Post Debridement (cm) - Length 3.5 -Post Debridement (cm) - Width 2.5 -Post Debridement (cm) - Depth 1.1 -Total Square (Post) (cm) 8.75 -Area of Debridement (cm) - Length 3.5 -Area of Debridement (cm) - Width 2.5 -Total Square (Area) (cm) 8.75 -Tunneling No -Undermining/Tunneling No -Circular Undermining No -Wound/Ulcer Outcome Not Healed -Ulcer Cleansing Rinsed/ Irrigated with Saline -Foul Odor after Cleansing No -Bioengineered Tissue No -Bleeding Controlled with Pressure -Treatment Response Procedure Tolerated Well -Offloading Yes -Type of Offloading Surgical Shoe -Debridement - Subq, 1st 20sq cm No #4- L PLANTAR FOOT -Time 12:09 -Correct Patient Yes -Correct Side, Site, Position Yes -Correct Procedure Yes -Procedure Performed Yes -Type of Procedure Debridement -Clinical Debridement Subcutaneous -Tissue Removed Subcutaneous -Post Debridement (cm) - Length 1.2 -Post Debridement (cm) - Width 0.9 -Post Debridement (cm) - Depth 0.1 -Total Square (Post) (cm) 1.08 -Area of Debridement (cm) - Length 1.2 -Area of Debridement (cm) - Width 0.9 -Total Square (Area) (cm) 1.08 -Tunneling No -Undermining/Tunneling No -Circular Undermining No -Wound/Ulcer Outcome Not Healed -Ulcer Cleansing Rinsed/ Irrigated with Saline -Foul Odor after Cleansing No -Bioengineered Tissue Yes -Type of Bioengineered Tissue Epifix 18mm Disc -Expiration Date 10/16/26 -Product Lot Number [id number] -Percent Used 100 -Lot number of Saline Used [id number] -Bleeding Controlled with Pressure -Treatment Response Procedure Tolerated Well -Offloading Yes -Type of Offloading Surgical Shoe -Debridement - Subq, 1st 20sq cm No -Apply Skin Sub - 1st 25 sq cm - Feet 1 -Epifix 18mm Disc 3 Pain Scale: 0-10 Numeric Is Patient Pain Free? Yes WC - Nurse 3 - General Ulcer D/C NN Start: 01/16/22 11:40 Freq: Status: Active Protocol: Activity Type Activity Date Activity User E-sign Co-sign Detail Recorded Client Recorded Date Recorded By Document 01/16/22 12:13 [facility] [id number] 01/16/22 12:15 [facility] Document 01/23/22 10:42 [facility] [id number] 01/23/22 10:44 BMF 01/16/22 01/23/22 12:13 10:42 Wound Care Nurse 3 8-left 2nd toe ulcer -Ulcer Cleansing Rinsed/ Rinsed/ Irrigated with Irrigated with Saline Saline -Foul Odor after Cleansing No No -Other Dressing DAKINS GAUZE; DAKINS GAUZE, PER MT CROZER OPERATOR PER DL CROZER OPERATOR -Primary Dressing Covered/Secured with Dry Gauze & Dry Gauze & Roll Gauze, Roll Gauze, Secured with Secured with Tape Tape #7 Left foot 4th toe amp site -Ulcer Cleansing Rinsed/ Rinsed/ Irrigated with Irrigated with Saline Saline -Foul Odor after Cleansing No No -Other Dressing DAKINS GAUZE; DAKINS MOIST DRSG PER AK CROZER OPERATOR GAUZE -Primary Dressing Covered/Secured with Dry Gauze & Dry Gauze & Roll Gauze, Roll Gauze, Secured with Secured with Tape Tape -Other Covering PER DL CROZER OPERATOR #6- L MEDIAL FOOT -Ulcer Cleansing Rinsed/ Irrigated with Saline -Foul Odor after Cleansing No -Other Dressing DAKINS GAUZE; EPIMESH PER AK CROZER OPERATOR -Primary Dressing Covered/Secured with Dry Gauze & Dry Gauze & Roll Gauze, Roll Gauze, Secured with Secured with Tape Tape -Other Covering PER DL CROZER OPERATOR #4- L PLANTAR FOOT -Other Dressing EPIFIX, ABD, EPIMESH, PER DL PER AK CROZER OPERATOR CROZER OPERATOR -Primary Dressing Covered/Secured with Dry Gauze & Dry Gauze & Roll Gauze, Roll Gauze, Secured with Secured with Tape Tape Left -Compression Wrap Mian Wrap Mian Wrap -Other MIAN TO SECURE MIAN TO SECURE Treatment Response Procedure Procedure Tolerated Well Tolerated Well Pain Scale: 0-10 Numeric Is Patient Pain Free? Yes Yes WC - Visit Discharge Discharge Condition Stable Stable Ambulatory Status Wheelchair Wheelchair Transportation Private Auto Private Auto Assessment/Plan Assessment/Plan (1) Peripheral vascular disease, unspecified: CODE(S): I73.9 - Peripheral vascular disease, unspecified (2) Type 2 diabetes mellitus with diabetic polyneuropathy: CODE(S): E11.42 - Type 2 diabetes mellitus with diabetic polyneuropathy (3) Chronic diabetic ulcer of left foot determined by examination: CODE(S): E11.621 - Type 2 diabetes mellitus with foot ulcer; L97.529 - Non-pressure chronic ulcer of other part of left foot with unspecified severity PLAN: Patient examined evaluated, all findings discussed with patient in detail. Wounds to left foot are improving at this time. dorsal lateral foot wound improving. Plantar midfoot wound improving. Increased granulation around medial first MPJ and fibrous and subcutaneous tissue was debrided today. New wound to dorsal second digit. Patient is following with vascular surgery as an outpatient. Patient has healthy bleeding upon debridement suggestive of good wound healing potential. Blood thinner use noted. Patient is following with infectious disease and has him going to infusion center for IV antibiotics. To continue as advised. The left first metatarsal phalangeal joint wound, dorsal lateral foot wound and plantar midfoot wounds were debrided down to including level of capsule and tendon of all nonviable tissue without incident. This was performed using 15 blade scalpel and forceps. Hemostasis obtained with light compression. Patient tolerated procedure well. No anesthesia due to neuropathy. Pre and postdebridement measurements documented in nursing notes. He was approved for application of advanced wound healing product and epi cord was applied according to standard protocol after verbal consent was obtained. This was applied to the medial first MPJ site in which insurance approval was obtained for. 100% of the product was utilized (epifix 4x4 11 billing unit graft). This was further secured in place with a wound veil and Steri-Strips. A secondary dressing was applied and he will keep this clean, dry, and intact until follow-up next week. The indications, benefits, application series, and anticipated healing time was reviewed. Patient will perform daily cleansing of his foot with dressing changes consisting of Dakin's DSD no compression to non epicord application site (s). Patient will maintain heel weightbearing status in cam walking boot assisted with a walker patient has a walker at home. Patient will follow up in 1 week. Patient is high risk for proximal amputation and understands this.
[2022-01-30 10:09] VITALS: BP 138/85; PULSE 93; RESP 16; TEMP 36; BMI 23.8
--- NOTE | 2022-01-30 11:02 | PN.PCM_ITS ---
History of Present Illness Date of Service: 01/30/22 Chief Complaint: Left foot ulcers x 3 History of Wound: This 61-year-old male seen in the wound care center for chronic left foot ulcerations secondary to peripheral arterial disease and amputations. Patient recently underwent quadruple bypass surgery successfully at [facility]. Patient has stent placed in popliteal artery due to popliteal occlusion and left lower extremity on the hospital previously. Subsequently the next day patient had a wound debridement with amputation of the fourth ray left open with vessel loop closure to the dorsal midfoot and wet-to-dry dressings to the plantar midfoot and medial first metatarsophalangeal joints. At this time he denies any constitutional symptoms, chest pain, calf pain, or shortness of breath. Patient received 6 weeks IV antibiotics at [facility]. He is amendable to proceed with advanced wound healing product application today if it has been approved by the insurance. Objective Data Objective Data Vital Signs: Vital Signs Temp Pulse Resp BP O2 Del Method 96.8 F L 93 16 138/85 H Room Air 01/30/22 10:09 01/30/22 10:09 01/30/22 10:09 01/30/22 10:09 01/30/22 10:09 Oxygen Delivery Method Room Air Weight: 77.564 kg Body Mass Index (BMI) 23.8 Physical Exam Narrative Improve vascularity left lower extremity. Dermatologic: Partial third and fourth ray resection sites with with wound demonstrates granular natured base, decrease in size. Plantar midfoot wound demonstrates fibrogranular base pre and postdebridement, decrease in size. Medial first metatarsal phalangeal joint wound is down to level of capsule there is a bleeding granular wound edge but the base of the wound improving and granulating in nature. Adjacent skin is hairless and atrophic. There is no visualized or palpable bone. New wound to dorsal second digit. All other wounds improving at this time. Wound to second digit at apex of hammertoe formation on the left foot. Demonstrates granular base no signs of infection deep probing or undermining. Musculoskeletal: Partial amputation to left third and fourth ray. Muscular strength 5 out of 5 to bilateral lower extremity compartments No pain with calf squeeze bilateral lower extremities. Debridement Note Debridement Note Post-Debridement Measurements and Additional Note: Post-Debridement Measurements/Treatment ROYCE - Nurse 1 - General Ulcer Assessment Start: 01/16/22 11:40 Freq: Status: Active Protocol: LOWEXT Activity Type Activity Date Activity User E-sign Co-sign Detail Recorded Client Recorded Date Recorded By Document 01/16/22 11:40 [place] [id number] 01/16/22 11:47 AK Document 01/23/22 10:03 MT [id number] 01/23/22 10:13 MT Document 01/30/22 10:09 [facility] [id number] 01/30/22 10:28 BMF 01/16/22 01/23/22 01/30/22 11:40 10:03 10:09 - Today's Visit Information Type of service Follow-up Visit Follow-up Visit Follow-up Visit (Physician/ASSEMBLER TRUCK TRAILER (Physician/ASSEMBLER TRUCK TRAILER (Physician/ASSEMBLER TRUCK TRAILER ) ) ) Arrival Mode Ambulatory, Ambulatory, Wheelchair Wheelchair Wheelchair Transfer Assistance Other Transfer Assist (Other) stand by Accompanied by self Patient Identification Verified (Name & Yes Yes Yes ) Patient Requires Transmission-Based No No Precautions Safety Precautions NA Fall Prevention Height and Weight Body Mass Index (BMI) 23.8 23.8 23.8 BMI Classification Normal Normal Normal Vital Signs Temperature (97.8 F-99.1 F) 97 F L 96.8 F L Temperature Source Temporal Temporal Pulse Rate (60-100) 80 93 Pulse Location Monitor Monitor Respiratory Rate (12-18) 18 16 Respiratory rate source Observation Observation Oxygen Delivery Method Room Air Room Air Blood Pressure (90/60-120/80) 97/67 138/85 H Blood Pressure Mean (mm Hg) 77 102 Source Monitor Monitor Position Sitting Sitting Blood Pressure Location Left Arm Right Arm History Since Last Visit- (Skip if this is Patient's initial visit) Have you changed medications since your Yes last visit? Any new allergies or adverse reactions No Had a fall/change in ADL's that may No increase risk of falls Signs or symptoms of abuse and/or No neglect since last visit Have you been in the hospital since your No No last visit? Has dressing in place as prescribed Yes Yes Has compression in place as prescribed Yes Yes Has offloadiing in place as prescribed Yes Yes Experienced any changes in pain level or Yes No management Left Footwear Surgical Shoe Surgical Shoe with pressure with pressure relief insole relief insole Right Footwear Regular Shoe Regular Shoe Pain Scale: 0-10 Numeric Is Patient Pain Free? Yes Yes Yes WC - Nurse 1 - General Ulcer Measurement Start: 01/16/22 11:40 Freq: Status: Active Protocol: Activity Type Activity Date Activity User E-sign Co-sign Detail Recorded Client Recorded Date Recorded By Document 01/16/22 11:40 AK [id number] 01/16/22 11:47 AK Document 01/23/22 10:03 MT [id number] 01/23/22 10:13 MT Document 01/30/22 10:09 [facility] [id number] 01/30/22 10:28 BMF 01/16/22 01/23/22 01/30/22 11:40 10:03 10:09 Wound Center Nurse 1 #7 Left foot 4th toe amp site -Combined with other wound No No -Current Size (cm) - Length 0.2 0.1 0.1 -Current Size (cm) - Width 0.2 0.1 0.1 -Current Size (cm) - Depth 0.2 0.1 0.1 -Total Square Cm 0.04 0.01 0.01 -Date of Last Picture (Recall this 01/30/22 field) -Photo Taken No Yes -Epithelialization Large 67-100% -Tunneling No No -Undermining/Tunneling No No -Circular Undermining No No -Change in Wound Grade/Stage No -Exudate Amt Small None Present -Exudate Type Serosanguineous -Wound Margin Distinct, Outline Attached -Granulation Amt Small (1-33%) -Granulation Quality [place] -Slough/Fibrin No -Necrosis Amt None Present (0 %) -Structure Exposed N/A -Texture (Bernadette-wound Skin Appearance) No Abnormality, Assessed, Assessed Scarring -Moisture (Bernadette-wound Skin Appearance) No Abnormality, Assessed,Dry/ Assessed Scaly -Color (Bernadette-wound Skin Appearance) No Abnormality, Assessed Assessed -Temperature (Bernadette-wound Skin No Abnormality No Abnormality Appearance) (Pt Warm) (Pt Warm) -Tenderness on Palpation (Bernadette-wound No No Skin Appearance) -Ulcer Cleansing Soap and Water Soap and Water -Foul Odor after Cleansing No No -Anesthetic Used 5% Lidocaine 4% Lidocaine Gel Solution 8-left 2nd toe ulcer -Combined with other wound No No -Current Size (cm) - Length 0.2 0.1 0.1 -Current Size (cm) - Width 0.2 0.1 0.1 -Current Size (cm) - Depth 0.1 0.1 0.1 -Total Square Cm 0.04 0.01 0.01 -Date of Last Picture (Recall this 01/30/22 field) -Photo Taken No Yes -Epithelialization Large 67-100% Large 67-100% -Tunneling No No -Undermining/Tunneling No No -Circular Undermining No No -Change in Wound Grade/Stage No -Exudate Amt Small None Present -Exudate Type Serosanguineous -Wound Margin Distinct, Outline Attached -Granulation Amt Small (1-33%) -Granulation Quality [place] -Slough/Fibrin No Yes -Necrosis Amt None Present (0 Small (1-33%) %) -Necrotic Tissue Type Eschar -Structure Exposed N/A -Texture (Bernadette-wound Skin Appearance) No Abnormality, Assessed, Assessed Scarring -Moisture (Bernadette-wound Skin Appearance) No Abnormality, Assessed Assessed -Color (Bernadette-wound Skin Appearance) No Abnormality, Assessed Assessed -Temperature (Bernadette-wound Skin No Abnormality No Abnormality Appearance) (Pt Warm) (Pt Warm) -Tenderness on Palpation (Bernadette-wound No No Skin Appearance) -Ulcer Cleansing Soap and Water Wound Cleanser -Foul Odor after Cleansing No No -Anesthetic Used 5% Lidocaine 4% Lidocaine Gel Solution #6- L MEDIAL FOOT -Combined with other wound No No -Current Size (cm) - Length 3.4 3.0 3.2 -Current Size (cm) - Width 2.5 2.6 2.2 -Current Size (cm) - Depth 1.1 0.1 1.3 -Total Square Cm 8.50 7.80 7.04 -Date of Last Picture (Recall this 01/30/22 field) -Photo Taken No Yes -Epithelialization Small 1-33% -Tunneling No No -Undermining/Tunneling No Yes No -Undermining/Tunneling Starts (O'clock 2 ) -Undermining/Tunneling Ends (O'clock) 4 -Maximum Distance (cm) 1.4 -Circular Undermining No No -Change in Wound Grade/Stage No -Exudate Amt Medium Medium Large -Exudate Type Serosanguineous Serosanguineous Yellow/Green -Wound Margin Distinct, Flat & Intact Distinct, Outline Outline Attached Attached -Granulation Amt Medium (34-66%) Medium (34-66%) Large (67-100%) -Granulation Quality [place] Pale,[place] Pale,Red -Slough/Fibrin Yes Yes -Necrosis Amt Medium (34-66%) Medium (34-66%) Small (1-33%) -Necrotic Tissue Type Adherent Slough Adherent Slough Adherent Slough -Structure Exposed N/A -Texture (Bernadette-wound Skin Appearance) No Abnormality, Assessed Assessed, Assessed Scarring -Moisture (Bernadette-wound Skin Appearance) No Abnormality, Assessed Assessed Assessed -Color (Bernadette-wound Skin Appearance) No Abnormality, Assessed Assessed Assessed -Temperature (Bernadette-wound Skin No Abnormality No Abnormality Appearance) (Pt Warm) (Pt Warm) -Tenderness on Palpation (Bernadette-wound No No No Skin Appearance) -Ulcer Cleansing Soap and Water Soap and Water Soap and Water -Foul Odor after Cleansing No No No -Anesthetic Used 5% Lidocaine 4% Lidocaine 4% Lidocaine Gel Solution Solution #4- L PLANTAR FOOT -Combined with other wound No No -Current Size (cm) - Length 1.2 1.7 0.4 -Current Size (cm) - Width 0.8 0.7 0.3 -Current Size (cm) - Depth 0.1 0.4 0.1 -Total Square Cm 0.96 1.19 0.12 -Date of Last Picture (Recall this 01/30/22 field) -Photo Taken Yes Yes -Epithelialization Medium 34-66% -Tunneling No No -Undermining/Tunneling No No -Circular Undermining No No -Change in Wound Grade/Stage No -Exudate Amt Medium Small Small -Exudate Type Serosanguineous Serosanguineous Serosanguineous -Wound Margin Distinct, Flat & Intact Distinct, Outline Outline Attached Attached -Granulation Amt None Present (0 Large (67-100%) Large (67-100%) %) -Granulation Quality N/A Pale,[place] Pale -Slough/Fibrin No Yes -Necrosis Amt None Present (0 Small (1-33%) Small (1-33%) %) -Necrotic Tissue Type Adherent Slough Adherent Slough -Structure Exposed N/A -Texture (Bernadette-wound Skin Appearance) No Abnormality, Assessed Assessed, Assessed Scarring -Moisture (Bernadette-wound Skin Appearance) No Abnormality, Assessed Assessed,Dry/ Assessed Scaly -Color (Bernadette-wound Skin Appearance) No Abnormality, Assessed Assessed Assessed -Temperature (Bernadette-wound Skin No Abnormality No Abnormality No Abnormality Appearance) (Pt Warm) (Pt Warm) (Pt Warm) -Tenderness on Palpation (Bernadette-wound No No No Skin Appearance) -Ulcer Cleansing Rinsed/ Soap and Water Soap and Water Irrigated with Saline -Foul Odor after Cleansing No No No -Anesthetic Used 5% Lidocaine 4% Lidocaine 4% Lidocaine Gel Solution Solution Lower Limb Edema Present NA WC - Nurse 2 - General Ulcer CM Notes Start: 01/16/22 11:40 Freq: Status: Active Protocol: Activity Type Activity Date Activity User E-sign Co-sign Detail Recorded Client Recorded Date Recorded By Document 01/16/22 12:05 [id number] 01/16/22 12:10 Document 01/23/22 12:49 [id number] 01/23/22 12:53 Document 01/30/22 10:51 [id number] 01/30/22 11:01 01/16/22 01/23/22 01/30/22 12:05 12:49 10:51 Wound Center Nurse 2 #7 Left foot 4th toe amp site -Time 12:07 -Correct Patient Yes No No -Correct Side, Site, Position Yes No No -Correct Procedure Yes No No -Procedure Performed Yes No No -Type of Procedure Debridement -Clinical Debridement Subcutaneous -Tissue Removed Subcutaneous -Post Debridement (cm) - Length 0.3 0 -Post Debridement (cm) - Width 0.2 0 -Post Debridement (cm) - Depth 0.2 0 -Total Square (Post) (cm) 0.06 0 -Area of Debridement (cm) - Length 0.3 0 -Area of Debridement (cm) - Width 0.2 0 -Total Square (Area) (cm) 0.06 0 -Tunneling No -Undermining/Tunneling No -Circular Undermining No -Wound/Ulcer Outcome Not Healed Not Healed Healed- Epithelialized -Ulcer Cleansing Rinsed/ Irrigated with Saline -Foul Odor after Cleansing No -Bioengineered Tissue No -Bleeding Controlled with Pressure -Treatment Response Procedure Tolerated Well -Offloading Yes -Type of Offloading Surgical Shoe -Debridement - Subq, 1st 20sq cm No 8-left 2nd toe ulcer -Time 12:05 10:58 -Correct Patient Yes No Yes -Correct Side, Site, Position Yes No Yes -Correct Procedure Yes No Yes -Procedure Performed Yes No Yes -Type of Procedure Debridement Debridement -Clinical Debridement Subcutaneous Subcutaneous -Tissue Removed Subcutaneous Subcutaneous -Post Debridement (cm) - Length 0.3 0.1 -Post Debridement (cm) - Width 0.2 0.2 -Post Debridement (cm) - Depth 0.1 0.1 -Total Square (Post) (cm) 0.06 0.02 -Area of Debridement (cm) - Length 0.3 0.1 -Area of Debridement (cm) - Width 0.2 0.2 -Total Square (Area) (cm) 0.06 0.02 -Tunneling No No -Undermining/Tunneling No No -Circular Undermining No No -Wound/Ulcer Outcome Not Healed Not Healed Not Healed -Ulcer Cleansing Rinsed/ Rinsed/ Irrigated with Irrigated with Saline Saline -Foul Odor after Cleansing No No -Bioengineered Tissue No No -Bleeding Controlled with Pressure Pressure -Treatment Response Procedure Procedure Tolerated Well Tolerated Well -Offloading Yes Yes -Type of Offloading Surgical Shoe Surgical Shoe -Debridement - Subq, 1st 20sq cm Yes Yes #6- L MEDIAL FOOT -Time 12:08 12:50 10:59 -Correct Patient Yes Yes Yes -Correct Side, Site, Position Yes Yes Yes -Correct Procedure Yes Yes Yes -Procedure Performed Yes Yes Yes -Type of Procedure Debridement Debridement Debridement -Clinical Debridement Subcutaneous Subcutaneous Subcutaneous -Tissue Removed Subcutaneous Subcutaneous Subcutaneous -Post Debridement (cm) - Length 3.5 3.0 3.3 -Post Debridement (cm) - Width 2.5 2.7 2.3 -Post Debridement (cm) - Depth 1.1 0.1 1.3 -Total Square (Post) (cm) 8.75 8.10 7.59 -Area of Debridement (cm) - Length 3.5 3.0 3.3 -Area of Debridement (cm) - Width 2.5 2.7 2.3 -Total Square (Area) (cm) 8.75 8.10 7.59 -Tunneling No No No -Undermining/Tunneling No No No -Circular Undermining No No No -Wound/Ulcer Outcome Not Healed Not Healed Not Healed -Ulcer Cleansing Rinsed/ Rinsed/ Rinsed/ Irrigated with Irrigated with Irrigated with Saline Saline Saline -Foul Odor after Cleansing No No No -Bioengineered Tissue No Yes Yes -Type of Bioengineered Tissue Epifix Mesh Epifix Mesh -Expiration Date 10/16/26 10/16/26 -Product Lot Number [id number] -Percent Used 100 100 -Lot number of Saline Used [id number] -Bleeding Controlled with Pressure Pressure -Treatment Response Procedure Procedure Procedure Tolerated Well Tolerated Well Tolerated Well -Offloading Yes Yes Yes -Type of Offloading Surgical Shoe Surgical Shoe Surgical Shoe -Debridement - Subq, 1st 20sq cm No No No -Apply Skin Sub - 1st 25 sq cm - Feet 1 1 -Epifix Mesh (per sq cm) 11 11 #4- L PLANTAR FOOT -Time 12:09 11:00 -Correct Patient Yes No Yes -Correct Side, Site, Position Yes No Yes -Correct Procedure Yes No Yes -Procedure Performed Yes No Yes -Type of Procedure Debridement Debridement -Clinical Debridement Subcutaneous Subcutaneous -Tissue Removed Subcutaneous Subcutaneous -Post Debridement (cm) - Length 1.2 0.4 -Post Debridement (cm) - Width 0.9 0.4 -Post Debridement (cm) - Depth 0.1 0.1 -Total Square (Post) (cm) 1.08 0.16 -Area of Debridement (cm) - Length 1.2 0.4 -Area of Debridement (cm) - Width 0.9 0.4 -Total Square (Area) (cm) 1.08 0.16 -Tunneling No No -Undermining/Tunneling No No -Circular Undermining No No -Wound/Ulcer Outcome Not Healed Not Healed Not Healed -Ulcer Cleansing Rinsed/ Rinsed/ Irrigated with Irrigated with Saline Saline -Foul Odor after Cleansing No No -Bioengineered Tissue Yes No -Type of Bioengineered Tissue Epifix 18mm Disc -Expiration Date 10/16/26 -Product Lot Number [id number] -Percent Used 100 -Lot number of Saline Used [id number] -Bleeding Controlled with Pressure Pressure -Treatment Response Procedure Procedure Tolerated Well Tolerated Well -Offloading Yes Yes -Type of Offloading Surgical Shoe Surgical Shoe -Debridement - Subq, 1st 20sq cm No No -Apply Skin Sub - 1st 25 sq cm - Feet 1 -Epifix 18mm Disc 3 Pain Scale: 0-10 Numeric Is Patient Pain Free? Yes Yes Yes WC - Nurse 3 - General Ulcer D/C NN Start: 01/16/22 11:40 Freq: Status: Active Protocol: Activity Type Activity Date Activity User E-sign Co-sign Detail Recorded Client Recorded Date Recorded By Document 01/16/22 12:13 [facility] [id number] 01/16/22 12:15 [facility] Document 01/23/22 10:42 [facility] [id number] 01/23/22 10:44 [facility] 01/16/22 01/23/22 12:13 10:42 Wound Care Nurse 3 #7 Left foot 4th toe amp site -Ulcer Cleansing Rinsed/ Rinsed/ Irrigated with Irrigated with Saline Saline -Foul Odor after Cleansing No No -Other Dressing DAKINS GAUZE; DAKINS MOIST DRSG PER [place] HOUSE MOVING SUPERVISOR GAUZE -Primary Dressing Covered/Secured with Dry Gauze & Dry Gauze & Roll Gauze, Roll Gauze, Secured with Secured with Tape Tape -Other Covering PER DL HOUSE MOVING SUPERVISOR 8-left 2nd toe ulcer -Ulcer Cleansing Rinsed/ Rinsed/ Irrigated with Irrigated with Saline Saline -Foul Odor after Cleansing No No -Other Dressing DAKINS GAUZE; DAKINS GAUZE, PER [place] HOUSE MOVING SUPERVISOR PER DL HOUSE MOVING SUPERVISOR -Primary Dressing Covered/Secured with Dry Gauze & Dry Gauze & Roll Gauze, Roll Gauze, Secured with Secured with Tape Tape #6- L MEDIAL FOOT -Ulcer Cleansing Rinsed/ Irrigated with Saline -Foul Odor after Cleansing No -Other Dressing DAKINS GAUZE; EPIMESH PER [place] HOUSE MOVING SUPERVISOR -Primary Dressing Covered/Secured with Dry Gauze & Dry Gauze & Roll Gauze, Roll Gauze, Secured with Secured with Tape Tape -Other Covering PER DL HOUSE MOVING SUPERVISOR #4- L PLANTAR FOOT -Other Dressing EPIFIX, ABD, EPIMESH, PER DL PER [place] HOUSE MOVING SUPERVISOR HOUSE MOVING SUPERVISOR -Primary Dressing Covered/Secured with Dry Gauze & Dry Gauze & Roll Gauze, Roll Gauze, Secured with Secured with Tape Tape Left -Compression Wrap Mian Wrap Mian Wrap -Other MIAN TO SECURE MIAN TO SECURE Treatment Response Procedure Procedure Tolerated Well Tolerated Well Pain Scale: 0-10 Numeric Is Patient Pain Free? Yes Yes WC - Visit Discharge Discharge Condition Stable Stable Ambulatory Status Wheelchair Wheelchair Transportation Private Auto Private Auto Assessment/Plan Assessment/Plan (1) Peripheral vascular disease, unspecified: CODE(S): I73.9 - Peripheral vascular disease, unspecified (2) Type 2 diabetes mellitus with diabetic polyneuropathy: CODE(S): E11.42 - Type 2 diabetes mellitus with diabetic polyneuropathy (3) Chronic diabetic ulcer of left foot determined by examination: CODE(S): E11.621 - Type 2 diabetes mellitus with foot ulcer; L97.529 - Non-pressure chronic ulcer of other part of left foot with unspecified severity PLAN: Patient examined evaluated, all findings discussed with patient in detail. Wounds to left foot are improving at this time. dorsal lateral foot wound improving. Plantar midfoot wound improving. Increased granulation around medial first MPJ and fibrous and subcutaneous tissue was debrided today. New wound to dorsal second digit. Patient is following with vascular surgery as an outpatient. Patient has healthy bleeding upon debridement suggestive of good wound healing potential. Blood thinner use noted. Patient is following with infectious disease and has him going to infusion center for IV antibiotics. To continue as advised. The left first metatarsal phalangeal joint wound, dorsal lateral foot wound and plantar midfoot wounds were debrided down to including level of capsule and tendon of all nonviable tissue without incident. This was performed using 15 blade scalpel and forceps. Hemostasis obtained with light compression. Patient tolerated procedure well. No anesthesia due to neuropathy. Pre and postdebridement measurements documented in nursing notes. He was approved for application of advanced wound healing product and epi cord was applied according to standard protocol after verbal consent was obtained. This was applied to the medial first MPJ site in which insurance approval was obtained for. 100% of the product was utilized (epifix 4x4 11 billing unit graft). This was further secured in place with a wound veil and Steri-Strips. A secondary dressing was applied and he will keep this clean, dry, and intact until follow-up next week. The indications, benefits, application series, and anticipated healing time was reviewed. Patient will perform daily cleansing of his foot with dressing changes consisting of Dakin's DSD no compression to non epicord application site (s). Patient will maintain heel weightbearing status in cam walking boot assisted with a walker patient has a walker at home. Patient will follow up in 1 week. Patient is high risk for proximal amputation and understands this.
[2022-02-06 10:21] VITALS: BP 143/74; PULSE 90; RESP 16; TEMP 36.1; BMI 23.8
--- NOTE | 2022-02-06 11:31 | PCM.WC.PN ---
History of Present Illness Date of Service: 02/06/22 Chief Complaint: Left foot ulcers x 3 History of Wound: This 61-year-old male seen in the wound care center for chronic left foot ulcerations secondary to peripheral arterial disease and amputations. Patient recently underwent quadruple bypass surgery successfully at [facility]. Patient has stent placed in popliteal artery due to popliteal occlusion and left lower extremity on the hospital previously. Subsequently the next day patient had a wound debridement with amputation of the fourth ray left open with vessel loop closure to the dorsal midfoot and wet-to-dry dressings to the plantar midfoot and medial first metatarsophalangeal joints. At this time he denies any constitutional symptoms, chest pain, calf pain, or shortness of breath. Patient received 6 weeks IV antibiotics at [facility]. He is amendable to proceed with advanced wound healing product application today if it has been approved by the insurance. Objective Data Objective Data Vital Signs: Vital Signs Temp Pulse Resp BP O2 Del Method 96.9 F L 90 16 143/74 H Room Air 02/06/22 10:21 02/06/22 10:21 02/06/22 10:21 02/06/22 10:21 02/06/22 10:21 Oxygen Delivery Method Room Air Weight: 77.564 kg Body Mass Index (BMI) 23.8 Physical Exam Narrative Improve vascularity left lower extremity. Dermatologic: Partial third and fourth ray resection sites with with wound demonstrates granular natured base, decrease in size. Plantar midfoot wound demonstrates fibrogranular base pre and postdebridement, decrease in size. Medial first metatarsal phalangeal joint wound is down to level of capsule there is a bleeding granular wound edge but the base of the wound improving and granulating in nature. Adjacent skin is hairless and atrophic. There is no visualized or palpable bone. New wound to dorsal second digit. All other wounds improving at this time. Wound to second digit at apex of hammertoe formation on the left foot. Demonstrates granular base no signs of infection deep probing or undermining. Musculoskeletal: Partial amputation to left third and fourth ray. Muscular strength 5 out of 5 to bilateral lower extremity compartments No pain with calf squeeze bilateral lower extremities. Debridement Note Debridement Note Post-Debridement Measurements and Additional Note: Post-Debridement Measurements/Treatment ROYCE - Nurse 1 - General Ulcer Assessment Start: 01/16/22 11:40 Freq: Status: Active Protocol: LOWEXT Activity Type Activity Date Activity User E-sign Co-sign Detail Recorded Client Recorded Date Recorded By Document 01/16/22 11:40 AK [id number] 01/16/22 11:47 AK Document 01/23/22 10:03 MT [id number] 01/23/22 10:13 MT Document 01/30/22 10:09 [facility] [id number] 01/30/22 10:28 [facility] Document 02/06/22 10:21 [facility] [id number] 02/06/22 10:29 BMF 01/16/22 01/23/22 01/30/22 11:40 10:03 10:09 - Today's Visit Information Type of service Follow-up Visit Follow-up Visit Follow-up Visit (Physician/FORESTRY AND WILDLIFE MANAGER (Physician/FORESTRY AND WILDLIFE MANAGER (Physician/FORESTRY AND WILDLIFE MANAGER ) ) ) Arrival Mode Ambulatory, Ambulatory, Wheelchair Wheelchair Wheelchair Transfer Assistance Other Transfer Assist (Other) stand by Accompanied by self Patient Identification Verified (Name & Yes Yes Yes ) Patient Requires Transmission-Based No No Precautions Safety Precautions NA Fall Prevention Height and Weight Body Mass Index (BMI) 23.8 23.8 23.8 BMI Classification Normal Normal Normal Vital Signs Temperature (97.8 F-99.1 F) 97 F L 96.8 F L Temperature Source Temporal Temporal Pulse Rate (60-100) 80 93 Pulse Location Monitor Monitor Respiratory Rate (12-18) 18 16 Respiratory rate source Observation Observation Oxygen Delivery Method Room Air Room Air Blood Pressure (90/60-120/80) 97/67 138/85 H Blood Pressure Mean (mm Hg) 77 102 Source Monitor Monitor Position Sitting Sitting Blood Pressure Location Left Arm Right Arm History Since Last Visit- (Skip if this is Patient's initial visit) Have you changed medications since your Yes last visit? Any new allergies or adverse reactions No Had a fall/change in ADL's that may No increase risk of falls Signs or symptoms of abuse and/or No neglect since last visit Have you been in the hospital since your No No last visit? Has dressing in place as prescribed Yes Yes Has compression in place as prescribed Yes Yes Has offloadiing in place as prescribed Yes Yes Experienced any changes in pain level or Yes No management Left Footwear Surgical Shoe Surgical Shoe with pressure with pressure relief insole relief insole Right Footwear Regular Shoe Regular Shoe Pain Scale: 0-10 Numeric Is Patient Pain Free? Yes Yes Yes 02/06/22 10:21 WC - Today's Visit Information Type of service Follow-up Visit (Physician/FORESTRY AND WILDLIFE MANAGER ) Arrival Mode Wheelchair Transfer Assistance None Transfer Assist (Other) Accompanied by Patient Identification Verified (Name & Yes ) Patient Requires Transmission-Based No Precautions Safety Precautions Height and Weight Body Mass Index (BMI) 23.8 BMI Classification Normal Vital Signs Temperature (97.8 F-99.1 F) 96.9 F L Temperature Source Temporal Pulse Rate (60-100) 90 Pulse Location Monitor Respiratory Rate (12-18) 16 Respiratory rate source Observation Oxygen Delivery Method Room Air Blood Pressure (90/60-120/80) 143/74 H Blood Pressure Mean (mm Hg) 97 Source Monitor Position Sitting Blood Pressure Location Right Arm History Since Last Visit- (Skip if this is Patient's initial visit) Have you changed medications since your No last visit? Any new allergies or adverse reactions No Had a fall/change in ADL's that may No increase risk of falls Signs or symptoms of abuse and/or No neglect since last visit Have you been in the hospital since your No last visit? Has dressing in place as prescribed Yes Has compression in place as prescribed Yes Has offloadiing in place as prescribed N/A Experienced any changes in pain level or No management Left Footwear Surgical Shoe with pressure relief insole Right Footwear Regular Shoe Pain Scale: 0-10 Numeric Is Patient Pain Free? Yes - Nurse 1 - General Ulcer Measurement Start: 01/16/22 11:40 Freq: Status: Active Protocol: Activity Type Activity Date Activity User E-sign Co-sign Detail Recorded Client Recorded Date Recorded By Document 01/16/22 11:40 AK [id number] 01/16/22 11:47 AK Document 01/23/22 10:03 AR [id number] 01/23/22 10:13 MT Document 01/30/22 10:09 [facility] [id number] 01/30/22 10:28 [facility] Document 02/06/22 10:21 [facility] [id number] 02/06/22 10:29 [facility] 11/04/0801/23/22 01/30/22 11:40 10:03 10:09 Wound Center Nurse 1 #7 Left foot 4th toe amp site -Combined with other wound No No -Current Size (cm) - Length 0.2 0.1 0.1 -Current Size (cm) - Width 0.2 0.1 0.1 -Current Size (cm) - Depth 0.2 0.1 0.1 -Total Square Cm 0.04 0.01 0.01 -Date of Last Picture (Recall this 01/30/22 field) -Photo Taken No Yes -Epithelialization Large 67-100% -Tunneling No No -Undermining/Tunneling No No -Circular Undermining No No -Change in Wound Grade/Stage No -Exudate Amt Small None Present -Exudate Type Serosanguineous -Wound Margin Distinct, Outline Attached -Granulation Amt Small (1-33%) -Granulation Quality [place] -Slough/Fibrin No -Necrosis Amt None Present (0 %) -Structure Exposed N/A -Texture (Bernadette-wound Skin Appearance) No Abnormality, Assessed, Assessed Scarring -Moisture (Bernadette-wound Skin Appearance) No Abnormality, Assessed,Dry/ Assessed Scaly -Color (Bernadette-wound Skin Appearance) No Abnormality, Assessed Assessed -Temperature (Bernadette-wound Skin No Abnormality No Abnormality Appearance) (Pt Warm) (Pt Warm) -Tenderness on Palpation (Bernadette-wound No No Skin Appearance) -Ulcer Cleansing Soap and Water Soap and Water -Foul Odor after Cleansing No No -Anesthetic Used 5% Lidocaine 4% Lidocaine Gel Solution 8-left 2nd toe ulcer -Combined with other wound No No -Current Size (cm) - Length 0.2 0.1 0.1 -Current Size (cm) - Width 0.2 0.1 0.1 -Current Size (cm) - Depth 0.1 0.1 0.1 -Total Square Cm 0.04 0.01 0.01 -Date of Last Picture (Recall this 01/30/22 field) -Photo Taken No Yes -Epithelialization Large 67-100% Large 67-100% -Tunneling No No -Undermining/Tunneling No No -Circular Undermining No No -Change in Wound Grade/Stage No -Exudate Amt Small None Present -Exudate Type Serosanguineous -Wound Margin Distinct, Outline Attached -Granulation Amt Small (1-33%) -Granulation Quality [place] -Slough/Fibrin No Yes -Necrosis Amt None Present (0 Small (1-33%) %) -Necrotic Tissue Type Eschar -Structure Exposed N/A -Texture (Bernadette-wound Skin Appearance) No Abnormality, Assessed, Assessed Scarring -Moisture (Bernadette-wound Skin Appearance) No Abnormality, Assessed Assessed -Color (Bernadette-wound Skin Appearance) No Abnormality, Assessed Assessed -Temperature (Bernadette-wound Skin No Abnormality No Abnormality Appearance) (Pt Warm) (Pt Warm) -Tenderness on Palpation (Bernadette-wound No No Skin Appearance) -Ulcer Cleansing Soap and Water Wound Cleanser -Foul Odor after Cleansing No No -Anesthetic Used 5% Lidocaine 4% Lidocaine Gel Solution #6- L MEDIAL FOOT -Combined with other wound No No -Current Size (cm) - Length 3.4 3.0 3.2 -Current Size (cm) - Width 2.5 2.6 2.2 -Current Size (cm) - Depth 1.1 0.1 1.3 -Total Square Cm 8.50 7.80 7.04 -Date of Last Picture (Recall this 01/30/22 field) -Photo Taken No Yes -Epithelialization Small 1-33% -Tunneling No No -Undermining/Tunneling No Yes No -Undermining/Tunneling Starts (O'clock 2 ) -Undermining/Tunneling Ends (O'clock) 4 -Maximum Distance (cm) 1.4 -Circular Undermining No No -Change in Wound Grade/Stage No -Exudate Amt Medium Medium Large -Exudate Type Serosanguineous Serosanguineous Yellow/Green -Wound Margin Distinct, Flat & Intact Distinct, Outline Outline Attached Attached -Granulation Amt Medium (34-66%) Medium (34-66%) Large (67-100%) -Granulation Quality [place] Pale,[place] Pale,Red -Slough/Fibrin Yes Yes -Necrosis Amt Medium (34-66%) Medium (34-66%) Small (1-33%) -Necrotic Tissue Type Adherent Slough Adherent Slough Adherent Slough -Structure Exposed N/A -Texture (Bernadette-wound Skin Appearance) No Abnormality, Assessed Assessed, Assessed Scarring -Moisture (Bernadette-wound Skin Appearance) No Abnormality, Assessed Assessed Assessed -Color (Bernadette-wound Skin Appearance) No Abnormality, Assessed Assessed Assessed -Temperature (Bernadette-wound Skin No Abnormality No Abnormality Appearance) (Pt Warm) (Pt Warm) -Tenderness on Palpation (Bernadette-wound No No No Skin Appearance) -Ulcer Cleansing Soap and Water Soap and Water Soap and Water -Foul Odor after Cleansing No No No -Anesthetic Used 5% Lidocaine 4% Lidocaine 4% Lidocaine Gel Solution Solution #4- L PLANTAR FOOT -Combined with other wound No No -Current Size (cm) - Length 1.2 1.7 0.4 -Current Size (cm) - Width 0.8 0.7 0.3 -Current Size (cm) - Depth 0.1 0.4 0.1 -Total Square Cm 0.96 1.19 0.12 -Date of Last Picture (Recall this 01/30/22 field) -Photo Taken Yes Yes -Epithelialization Medium 34-66% -Tunneling No No -Undermining/Tunneling No No -Circular Undermining No No -Change in Wound Grade/Stage No -Exudate Amt Medium Small Small -Exudate Type Serosanguineous Serosanguineous Serosanguineous -Wound Margin Distinct, Flat & Intact Distinct, Outline Outline Attached Attached -Granulation Amt None Present (0 Large (67-100%) Large (67-100%) %) -Granulation Quality N/A Pale,[place] Pale -Slough/Fibrin No Yes -Necrosis Amt None Present (0 Small (1-33%) Small (1-33%) %) -Necrotic Tissue Type Adherent Slough Adherent Slough -Structure Exposed N/A -Texture (Bernadette-wound Skin Appearance) No Abnormality, Assessed Assessed, Assessed Scarring -Moisture (Bernadette-wound Skin Appearance) No Abnormality, Assessed Assessed,Dry/ Assessed Scaly -Color (Bernadette-wound Skin Appearance) No Abnormality, Assessed Assessed Assessed -Temperature (Bernadette-wound Skin No Abnormality No Abnormality No Abnormality Appearance) (Pt Warm) (Pt Warm) (Pt Warm) -Tenderness on Palpation (Bernadette-wound No No No Skin Appearance) -Ulcer Cleansing Rinsed/ Soap and Water Soap and Water Irrigated with Saline -Foul Odor after Cleansing No No No -Anesthetic Used 5% Lidocaine 4% Lidocaine 4% Lidocaine Gel Solution Solution Lower Limb Edema Present NA 02/06/22 10:21 Wound Center Nurse 1 #7 Left foot 4th toe amp site -Combined with other wound -Current Size (cm) - Length -Current Size (cm) - Width -Current Size (cm) - Depth -Total Square Cm -Date of Last Picture (Recall this field) -Photo Taken -Epithelialization -Tunneling -Undermining/Tunneling -Circular Undermining -Change in Wound Grade/Stage -Exudate Amt -Exudate Type -Wound Margin -Granulation Amt -Granulation Quality -Slough/Fibrin -Necrosis Amt -Structure Exposed -Texture (Bernadette-wound Skin Appearance) -Moisture (Bernadette-wound Skin Appearance) -Color (Bernadette-wound Skin Appearance) -Temperature (Bernadette-wound Skin Appearance) -Tenderness on Palpation (Bernadette-wound Skin Appearance) -Ulcer Cleansing -Foul Odor after Cleansing -Anesthetic Used 8-left 2nd toe ulcer -Combined with other wound No -Current Size (cm) - Length 0.1 -Current Size (cm) - Width 0.1 -Current Size (cm) - Depth 0.1 -Total Square Cm 0.01 -Date of Last Picture (Recall this 02/06/22 field) -Photo Taken Yes -Epithelialization Large 67-100% -Tunneling No -Undermining/Tunneling No -Circular Undermining No -Change in Wound Grade/Stage -Exudate Amt None Present -Exudate Type -Wound Margin -Granulation Amt -Granulation Quality -Slough/Fibrin -Necrosis Amt -Necrotic Tissue Type -Structure Exposed -Texture (Bernadette-wound Skin Appearance) Assessed, Scarring -Moisture (Bernadette-wound Skin Appearance) Assessed,Dry/ Scaly -Color (Bernadette-wound Skin Appearance) Assessed -Temperature (Bernadette-wound Skin No Abnormality Appearance) (Pt Warm) -Tenderness on Palpation (Bernadette-wound No Skin Appearance) -Ulcer Cleansing Soap and Water -Foul Odor after Cleansing No -Anesthetic Used 4% Lidocaine Solution #6- L MEDIAL FOOT -Combined with other wound No -Current Size (cm) - Length 3.1 -Current Size (cm) - Width 2.4 -Current Size (cm) - Depth 0.6 -Total Square Cm 7.44 -Date of Last Picture (Recall this 02/06/22 field) -Photo Taken Yes -Epithelialization Small 1-33% -Tunneling No -Undermining/Tunneling No -Undermining/Tunneling Starts (O'clock ) -Undermining/Tunneling Ends (O'clock) -Maximum Distance (cm) -Circular Undermining No -Change in Wound Grade/Stage -Exudate Amt Medium -Exudate Type Serosanguineous -Wound Margin Distinct, Outline Attached -Granulation Amt Large (67-100%) -Granulation Quality Red -Slough/Fibrin Yes -Necrosis Amt Small (1-33%) -Necrotic Tissue Type Adherent Slough -Structure Exposed -Texture (Bernadette-wound Skin Appearance) Assessed, Localized Edema ,Scarring -Moisture (Bernadette-wound Skin Appearance) Assessed, Maceration -Color (Bernadette-wound Skin Appearance) Assessed, Erythema -Temperature (Bernadette-wound Skin No Abnormality Appearance) (Pt Warm) -Tenderness on Palpation (Bernadette-wound No Skin Appearance) -Ulcer Cleansing Soap and Water -Foul Odor after Cleansing No -Anesthetic Used 4% Lidocaine Solution #4- L PLANTAR FOOT -Combined with other wound No -Current Size (cm) - Length 1.2 -Current Size (cm) - Width 0.7 -Current Size (cm) - Depth 0.2 -Total Square Cm 0.84 -Date of Last Picture (Recall this 02/06/22 field) -Photo Taken Yes -Epithelialization Small 1-33% -Tunneling No -Undermining/Tunneling No -Circular Undermining No -Change in Wound Grade/Stage -Exudate Amt Small -Exudate Type Serosanguineous -Wound Margin Distinct, Outline Attached -Granulation Amt Large (67-100%) -Granulation Quality Red -Slough/Fibrin No -Necrosis Amt Small (1-33%) -Necrotic Tissue Type Adherent Slough -Structure Exposed -Texture (Bernadette-wound Skin Appearance) Assessed, Scarring -Moisture (Bernadette-wound Skin Appearance) Assessed,Dry/ Scaly -Color (Bernadette-wound Skin Appearance) Assessed -Temperature (Bernadette-wound Skin No Abnormality Appearance) (Pt Warm) -Tenderness on Palpation (Bernadette-wound No Skin Appearance) -Ulcer Cleansing Soap and Water -Foul Odor after Cleansing No -Anesthetic Used 4% Lidocaine Solution Lower Limb Edema Present WC - Nurse 2 - General Ulcer CM Notes Start: 01/16/22 11:40 Freq: Status: Active Protocol: Activity Type Activity Date Activity User E-sign Co-sign Detail Recorded Client Recorded Date Recorded By Document 01/16/22 12:05 ORESTES [id number] 01/16/22 12:10 Document 01/23/22 12:49 [id number] 01/23/22 12:53 Document 01/30/22 10:51 [id number] 01/30/22 11:01 01/16/22 01/23/22 01/30/22 12:05 12:49 10:51 Wound Center Nurse 2 #7 Left foot 4th toe amp site -Time 12:07 -Correct Patient Yes No No -Correct Side, Site, Position Yes No No -Correct Procedure Yes No No -Procedure Performed Yes No No -Type of Procedure Debridement -Clinical Debridement Subcutaneous -Tissue Removed Subcutaneous -Post Debridement (cm) - Length 0.3 0 -Post Debridement (cm) - Width 0.2 0 -Post Debridement (cm) - Depth 0.2 0 -Total Square (Post) (cm) 0.06 0 -Area of Debridement (cm) - Length 0.3 0 -Area of Debridement (cm) - Width 0.2 0 -Total Square (Area) (cm) 0.06 0 -Tunneling No -Undermining/Tunneling No -Circular Undermining No -Wound/Ulcer Outcome Not Healed Not Healed Healed- Epithelialized -Ulcer Cleansing Rinsed/ Irrigated with Saline -Foul Odor after Cleansing No -Bioengineered Tissue No -Bleeding Controlled with Pressure -Treatment Response Procedure Tolerated Well -Offloading Yes -Type of Offloading Surgical Shoe -Debridement - Subq, 1st 20sq cm No 8-left 2nd toe ulcer -Time 12:05 10:58 -Correct Patient Yes No Yes -Correct Side, Site, Position Yes No Yes -Correct Procedure Yes No Yes -Procedure Performed Yes No Yes -Type of Procedure Debridement Debridement -Clinical Debridement Subcutaneous Subcutaneous -Tissue Removed Subcutaneous Subcutaneous -Post Debridement (cm) - Length 0.3 0.1 -Post Debridement (cm) - Width 0.2 0.2 -Post Debridement (cm) - Depth 0.1 0.1 -Total Square (Post) (cm) 0.06 0.02 -Area of Debridement (cm) - Length 0.3 0.1 -Area of Debridement (cm) - Width 0.2 0.2 -Total Square (Area) (cm) 0.06 0.02 -Tunneling No No -Undermining/Tunneling No No -Circular Undermining No No -Wound/Ulcer Outcome Not Healed Not Healed Not Healed -Ulcer Cleansing Rinsed/ Rinsed/ Irrigated with Irrigated with Saline Saline -Foul Odor after Cleansing No No -Bioengineered Tissue No No -Bleeding Controlled with Pressure Pressure -Treatment Response Procedure Procedure Tolerated Well Tolerated Well -Offloading Yes Yes -Type of Offloading Surgical Shoe Surgical Shoe -Debridement - Subq, 1st 20sq cm Yes Yes #6- L MEDIAL FOOT -Time 12:08 12:50 10:59 -Correct Patient Yes Yes Yes -Correct Side, Site, Position Yes Yes Yes -Correct Procedure Yes Yes Yes -Procedure Performed Yes Yes Yes -Type of Procedure Debridement Debridement Debridement -Clinical Debridement Subcutaneous Subcutaneous Subcutaneous -Tissue Removed Subcutaneous Subcutaneous Subcutaneous -Post Debridement (cm) - Length 3.5 3.0 3.3 -Post Debridement (cm) - Width 2.5 2.7 2.3 -Post Debridement (cm) - Depth 1.1 0.1 1.3 -Total Square (Post) (cm) 8.75 8.10 7.59 -Area of Debridement (cm) - Length 3.5 3.0 3.3 -Area of Debridement (cm) - Width 2.5 2.7 2.3 -Total Square (Area) (cm) 8.75 8.10 7.59 -Tunneling No No No -Undermining/Tunneling No No No -Circular Undermining No No No -Wound/Ulcer Outcome Not Healed Not Healed Not Healed -Ulcer Cleansing Rinsed/ Rinsed/ Rinsed/ Irrigated with Irrigated with Irrigated with Saline Saline Saline -Foul Odor after Cleansing No No No -Bioengineered Tissue No Yes Yes -Type of Bioengineered Tissue Epifix Mesh Epifix Mesh -Expiration Date 10/16/26 10/16/26 -Product Lot Number [id number] -Percent Used 100 100 -Lot number of Saline Used [id number] -Bleeding Controlled with Pressure Pressure -Treatment Response Procedure Procedure Procedure Tolerated Well Tolerated Well Tolerated Well -Offloading Yes Yes Yes -Type of Offloading Surgical Shoe Surgical Shoe Surgical Shoe -Debridement - Subq, 1st 20sq cm No No No -Apply Skin Sub - 1st 25 sq cm - Feet 1 1 -Epifix Mesh (per sq cm) 11 11 #4- L PLANTAR FOOT -Time 12:09 11:00 -Correct Patient Yes No Yes -Correct Side, Site, Position Yes No Yes -Correct Procedure Yes No Yes -Procedure Performed Yes No Yes -Type of Procedure Debridement Debridement -Clinical Debridement Subcutaneous Subcutaneous -Tissue Removed Subcutaneous Subcutaneous -Post Debridement (cm) - Length 1.2 0.4 -Post Debridement (cm) - Width 0.9 0.4 -Post Debridement (cm) - Depth 0.1 0.1 -Total Square (Post) (cm) 1.08 0.16 -Area of Debridement (cm) - Length 1.2 0.4 -Area of Debridement (cm) - Width 0.9 0.4 -Total Square (Area) (cm) 1.08 0.16 -Tunneling No No -Undermining/Tunneling No No -Circular Undermining No No -Wound/Ulcer Outcome Not Healed Not Healed Not Healed -Ulcer Cleansing Rinsed/ Rinsed/ Irrigated with Irrigated with Saline Saline -Foul Odor after Cleansing No No -Bioengineered Tissue Yes No -Type of Bioengineered Tissue Epifix 18mm Disc -Expiration Date 10/16/26 -Product Lot Number [id number] -Percent Used 100 -Lot number of Saline Used [id number] -Bleeding Controlled with Pressure Pressure -Treatment Response Procedure Procedure Tolerated Well Tolerated Well -Offloading Yes Yes -Type of Offloading Surgical Shoe Surgical Shoe -Debridement - Subq, 1st 20sq cm No No -Apply Skin Sub - 1st 25 sq cm - Feet 1 -Epifix 18mm Disc 3 Pain Scale: 0-10 Numeric Is Patient Pain Free? Yes Yes Yes WC - Nurse 3 - General Ulcer D/C NN Start: 01/16/22 11:40 Freq: Status: Active Protocol: Activity Type Activity Date Activity User E-sign Co-sign Detail Recorded Client Recorded Date Recorded By Document 01/16/22 12:13 [facility] [id number] 01/16/22 12:15 [facility] Document 01/23/22 10:42 [facility] [id number] 01/23/22 10:44 [facility] Document 01/30/22 11:13 [facility] [id number] 01/30/22 11:13 [facility] Document 02/06/22 11:06 [facility] [id number] 02/06/22 11:07 BMF 01/16/22 01/23/22 01/30/22 12:13 10:42 11:13 Wound Care Nurse 3 #7 Left foot 4th toe amp site -Ulcer Cleansing Rinsed/ Rinsed/ Irrigated with Irrigated with Saline Saline -Foul Odor after Cleansing No No -Other Dressing DAKINS GAUZE; DAKINS MOIST DRSG PER [place] METER TESTER PRIMARY GAUZE -Primary Dressing Covered/Secured with Dry Gauze & Dry Gauze & Roll Gauze, Roll Gauze, Secured with Secured with Tape Tape -Other Covering PER DL METER TESTER PRIMARY 8-left 2nd toe ulcer -Ulcer Cleansing Rinsed/ Rinsed/ Irrigated with Irrigated with Saline Saline -Foul Odor after Cleansing No No -Other Dressing DAKINS GAUZE; DAKINS GAUZE, dakins PER [place] METER TESTER PRIMARY PER DL METER TESTER PRIMARY -Primary Dressing Covered/Secured with Dry Gauze & Dry Gauze & Dry Gauze & Roll Gauze, Roll Gauze, Roll Gauze, Secured with Secured with Secured with Tape Tape Tape #6- L MEDIAL FOOT -Ulcer Cleansing Rinsed/ Irrigated with Saline -Foul Odor after Cleansing No -Other Dressing DAKINS GAUZE; EPIMESH epifix PER [place] METER TESTER PRIMARY -Primary Dressing Covered/Secured with Dry Gauze & Dry Gauze & Dry Gauze & Roll Gauze, Roll Gauze, Roll Gauze, Secured with Secured with Secured with Tape Tape Tape -Other Covering PER DL METER TESTER PRIMARY abd #4- L PLANTAR FOOT -Ulcer Cleansing -Foul Odor after Cleansing -Other Dressing EPIFIX, ABD, EPIMESH, PER DL abd PER [place] METER TESTER PRIMARY METER TESTER PRIMARY -Primary Dressing Covered/Secured with Dry Gauze & Dry Gauze & Dry Gauze & Roll Gauze, Roll Gauze, Roll Gauze, Secured with Secured with Secured with Tape Tape Tape -Other Covering Left -Compression Wrap Mian Wrap Mian Wrap Mian Wrap -Other MIAN TO SECURE MIAN TO SECURE mian to secure Treatment Response Procedure Procedure Procedure Tolerated Well Tolerated Well Tolerated Well Pain Scale: 0-10 Numeric Is Patient Pain Free? Yes Yes Yes WC - Visit Discharge Discharge Condition Stable Stable Stable Ambulatory Status Wheelchair Wheelchair Wheelchair Transportation Private Auto Private Auto Private Auto 02/06/22 11:06 Wound Care Nurse 3 #7 Left foot 4th toe amp site -Ulcer Cleansing -Foul Odor after Cleansing -Other Dressing -Primary Dressing Covered/Secured with -Other Covering 8-left 2nd toe ulcer -Ulcer Cleansing Rinsed/ Irrigated with Saline -Foul Odor after Cleansing No -Other Dressing dakins moist gauze -Primary Dressing Covered/Secured with Dry Gauze & Roll Gauze, Secured with Tape #6- L MEDIAL FOOT -Ulcer Cleansing -Foul Odor after Cleansing -Other Dressing epi -Primary Dressing Covered/Secured with Dry Gauze & Roll Gauze, Secured with Tape -Other Covering abd #4- L PLANTAR FOOT -Ulcer Cleansing Rinsed/ Irrigated with Saline -Foul Odor after Cleansing No -Other Dressing hydrogel -Primary Dressing Covered/Secured with Dry Gauze & Roll Gauze, Secured with Tape -Other Covering abd Left -Compression Wrap Mian Wrap -Other mian to secure Treatment Response Procedure Tolerated Well Pain Scale: 0-10 Numeric Is Patient Pain Free? Yes WC - Visit Discharge Discharge Condition Stable Ambulatory Status Wheelchair Transportation Private Auto Assessment/Plan Assessment/Plan (1) Peripheral vascular disease, unspecified: CODE(S): I73.9 - Peripheral vascular disease, unspecified (2) Type 2 diabetes mellitus with diabetic polyneuropathy: CODE(S): E11.42 - Type 2 diabetes mellitus with diabetic polyneuropathy (3) Chronic diabetic ulcer of left foot determined by examination: CODE(S): E11.621 - Type 2 diabetes mellitus with foot ulcer; L97.529 - Non-pressure chronic ulcer of other part of left foot with unspecified severity PLAN: Patient examined evaluated, all findings discussed with patient in detail. Wounds to left foot are improving at this time. dorsal lateral foot wound improving. Plantar midfoot wound improving. Increased granulation around medial first MPJ and fibrous and subcutaneous tissue was debrided today. New wound to dorsal second digit. Patient is following with vascular surgery as an outpatient. Patient has healthy bleeding upon debridement suggestive of good wound healing potential. Blood thinner use noted. Patient is following with infectious disease and has him going to infusion center for IV antibiotics. To continue as advised. The left first metatarsal phalangeal joint wound, dorsal lateral foot wound and plantar midfoot wounds were debrided down to including level of capsule and tendon of all nonviable tissue without incident. This was performed using 15 blade scalpel and forceps. Hemostasis obtained with light compression. Patient tolerated procedure well. No anesthesia due to neuropathy. Pre and postdebridement measurements documented in nursing notes. He was approved for application of advanced wound healing product and epi cord was applied according to standard protocol after verbal consent was obtained. This was applied to the medial first MPJ site in which insurance approval was obtained for. 100% of the product was utilized (epifix 4x4 11 billing unit graft). This was further secured in place with a wound veil and Steri-Strips. A secondary dressing was applied and he will keep this clean, dry, and intact until follow-up next week. The indications, benefits, application series, and anticipated healing time was reviewed. Patient will perform daily cleansing of his foot with dressing changes consisting of Dakin's DSD no compression to non epicord application site (s). Patient will maintain heel weightbearing status in cam walking boot assisted with a walker patient has a walker at home. Patient will follow up in 1 week. Patient is high risk for proximal amputation and understands this.
[2022-02-13 10:33] VITALS: BP 115/80; PULSE 87; RESP 18; TEMP 35.8; BMI 23.8
--- NOTE | 2022-02-13 11:40 | PN.PCM_ITS ---
History of Present Illness Date of Service: 02/13/22 Chief Complaint: Left foot ulcers x 3 History of Wound: This 61-year-old male seen in the wound care center for chronic left foot ulcerations secondary to peripheral arterial disease and amputations. Patient recently underwent quadruple bypass surgery successfully at [facility]. Patient has stent placed in popliteal artery due to popliteal occlusion and left lower extremity on the hospital previously. Subsequently the next day patient had a wound debridement with amputation of the fourth ray left open with vessel loop closure to the dorsal midfoot and wet-to-dry dressings to the plantar midfoot and medial first metatarsophalangeal joints. At this time he denies any constitutional symptoms, chest pain, calf pain, or shortness of breath. Patient received 6 weeks IV antibiotics at [facility]. He is amendable to proceed with advanced wound healing product application today if it has been approved by the insurance. Objective Data Objective Data Vital Signs: Vital Signs Temp Pulse Resp BP O2 Del Method 96.5 F L 87 18 115/80 Room Air 02/13/22 10:33 02/13/22 10:33 02/13/22 10:33 02/13/22 10:33 02/13/22 10:33 Oxygen Delivery Method Room Air Weight: 77.564 kg Body Mass Index (BMI) 23.8 Physical Exam Narrative Improve vascularity left lower extremity. Dermatologic: Partial third and fourth ray resection sites with with wound demonstrates granular natured base, decrease in size. Plantar midfoot wound demonstrates fibrogranular base pre and postdebridement, decrease in size. Medial first metatarsal phalangeal joint wound is down to level of capsule there is a bleeding granular wound edge but the base of the wound improving and granulating in nature. Adjacent skin is hairless and atrophic. There is no visualized or palpable bone. New wound to dorsal second digit. All other wounds improving at this time. Wound to second digit at apex of hammertoe formation on the left foot. Demonstrates granular base no signs of infection deep probing or undermining. Musculoskeletal: Partial amputation to left third and fourth ray. Muscular strength 5 out of 5 to bilateral lower extremity compartments No pain with calf squeeze bilateral lower extremities. Debridement Note Debridement Note Post-Debridement Measurements and Additional Note: Post-Debridement Measurements/Treatment ROYCE - Nurse 1 - General Ulcer Assessment Start: 01/16/22 11:40 Freq: Status: Active Protocol: CINDYEXT Activity Type Activity Date Activity User E-sign Co-sign Detail Recorded Client Recorded Date Recorded By Document 01/16/22 11:40 AK [id number] 01/16/22 11:47 AK Document 01/23/22 10:03 MT [id number] 01/23/22 10:13 MT Document 01/30/22 10:09 BM [id number] 01/30/22 10:28 BM Document 02/06/22 10:21 BM [id number] 02/06/22 10:29 BM Document 02/13/22 10:33 MW [id number] 02/13/22 10:40 MW 01/16/22 01/23/22 01/30/22 11:40 10:03 10:09 - Today's Visit Information Type of service Follow-up Visit Follow-up Visit Follow-up Visit (Physician/EDUCATION COURSES SALES REPRESENTATIVE (Physician/EDUCATION COURSES SALES REPRESENTATIVE (Physician/EDUCATION COURSES SALES REPRESENTATIVE ) ) ) Arrival Mode Ambulatory, Ambulatory, Wheelchair Wheelchair Wheelchair Transfer Assistance Other Transfer Assist (Other) stand by Accompanied by self Patient Identification Verified (Name & Yes Yes Yes ) Patient Requires Transmission-Based No No Precautions Safety Precautions NA Fall Prevention Finger Stick Blood Sugar(mg/dl) (if indicated): Blood Sugar Height and Weight Body Mass Index (BMI) 23.8 23.8 23.8 BMI Classification Normal Normal Normal Vital Signs Temperature (97.8 F-99.1 F) 97 F L 96.8 F L Temperature Source Temporal Temporal Pulse Rate (60-100) 80 93 Pulse Location Monitor Monitor Respiratory Rate (12-18) 18 16 Respiratory rate source Observation Observation Oxygen Delivery Method Room Air Room Air Blood Pressure (90/60-120/80) 97/67 138/85 H Blood Pressure Mean (mm Hg) 77 102 Source Monitor Monitor Position Sitting Sitting Blood Pressure Location Left Arm Right Arm History Since Last Visit- (Skip if this is Patient's initial visit) Have you changed medications since your Yes last visit? Any new allergies or adverse reactions No Had a fall/change in ADL's that may No increase risk of falls Signs or symptoms of abuse and/or No neglect since last visit Have you been in the hospital since your No No last visit? Has dressing in place as prescribed Yes Yes Has compression in place as prescribed Yes Yes Has offloadiing in place as prescribed Yes Yes Experienced any changes in pain level or Yes No management Left Footwear Surgical Shoe Surgical Shoe with pressure with pressure relief insole relief insole Right Footwear Regular Shoe Regular Shoe Pain Scale: 0-10 Numeric Is Patient Pain Free? Yes Yes Yes 02/06/22 02/13/22 10:21 10:33 WC - Today's Visit Information Type of service Follow-up Visit Follow-up Visit (Physician/EDUCATION COURSES SALES REPRESENTATIVE (Physician/EDUCATION COURSES SALES REPRESENTATIVE ) ) Arrival Mode Wheelchair Wheelchair Transfer Assistance None None Transfer Assist (Other) Accompanied by self Patient Identification Verified (Name & Yes Yes ) Patient Requires Transmission-Based No No Precautions Safety Precautions NA Finger Stick Blood Sugar(mg/dl) (if 140 indicated): Blood Sugar Stated by Patient Height and Weight Body Mass Index (BMI) 23.8 23.8 BMI Classification Normal Normal Vital Signs Temperature (97.8 F-99.1 F) 96.9 F L 96.5 F L Temperature Source Temporal Temporal Pulse Rate (60-100) 90 87 Pulse Location Monitor Monitor Respiratory Rate (12-18) 16 18 Respiratory rate source Observation Observation Oxygen Delivery Method Room Air Room Air Blood Pressure (90/60-120/80) 143/74 H 115/80 Blood Pressure Mean (mm Hg) 97 91 Source Monitor Monitor Position Sitting Sitting Blood Pressure Location Right Arm Left Arm History Since Last Visit- (Skip if this is Patient's initial visit) Have you changed medications since your No No last visit? Any new allergies or adverse reactions No No Had a fall/change in ADL's that may No No increase risk of falls Signs or symptoms of abuse and/or No No neglect since last visit Have you been in the hospital since your No No last visit? Has dressing in place as prescribed Yes Yes Has compression in place as prescribed Yes Yes Has offloadiing in place as prescribed N/A N/A Experienced any changes in pain level or No No management Left Footwear Surgical Shoe Surgical Shoe with pressure with pressure relief insole relief insole Right Footwear Regular Shoe Regular Shoe Pain Scale: 0-10 Numeric Is Patient Pain Free? Yes Yes - Nurse 1 - General Ulcer Measurement Start: 01/16/22 11:40 Freq: Status: Active Protocol: Activity Type Activity Date Activity User E-sign Co-sign Detail Recorded Client Recorded Date Recorded By Document 01/16/22 11:40 AK [id number] 01/16/22 11:47 AK Document 01/23/22 10:03 MT [id number] 01/23/22 10:13 MT Document 01/30/22 10:09 BM [id number] 01/30/22 10:28 BMF Document 02/06/22 10:21 BMF [id number] 02/06/22 10:29 BMF Document 02/13/22 10:33 MW [id number] 02/13/22 10:40 MW 01/16/22 01/23/22 01/30/22 11:40 10:03 10:09 Wound Center Nurse 1 #7 Left foot 4th toe amp site -Combined with other wound No No -Current Size (cm) - Length 0.2 0.1 0.1 -Current Size (cm) - Width 0.2 0.1 0.1 -Current Size (cm) - Depth 0.2 0.1 0.1 -Total Square Cm 0.04 0.01 0.01 -Date of Last Picture (Recall this 01/30/22 field) -Photo Taken No Yes -Epithelialization Large 67-100% -Tunneling No No -Undermining/Tunneling No No -Circular Undermining No No -Change in Wound Grade/Stage No -Exudate Amt Small None Present -Exudate Type Serosanguineous -Wound Margin Distinct, Outline Attached -Granulation Amt Small (1-33%) -Granulation Quality [place] -Slough/Fibrin No -Necrosis Amt None Present (0 %) -Structure Exposed N/A -Texture (Bernadette-wound Skin Appearance) No Abnormality, Assessed, Assessed Scarring -Moisture (Bernadette-wound Skin Appearance) No Abnormality, Assessed,Dry/ Assessed Scaly -Color (Bernadette-wound Skin Appearance) No Abnormality, Assessed Assessed -Temperature (Bernadette-wound Skin No Abnormality No Abnormality Appearance) (Pt Warm) (Pt Warm) -Tenderness on Palpation (Bernadette-wound No No Skin Appearance) -Ulcer Cleansing Soap and Water Soap and Water -Foul Odor after Cleansing No No -Anesthetic Used 5% Lidocaine 4% Lidocaine Gel Solution 8-left 2nd toe ulcer -Combined with other wound No No -Current Size (cm) - Length 0.2 0.1 0.1 -Current Size (cm) - Width 0.2 0.1 0.1 -Current Size (cm) - Depth 0.1 0.1 0.1 -Total Square Cm 0.04 0.01 0.01 -Date of Last Picture (Recall this 01/30/22 field) -Photo Taken No Yes -Epithelialization Large 67-100% Large 67-100% -Tunneling No No -Undermining/Tunneling No No -Circular Undermining No No -Change in Wound Grade/Stage No -Exudate Amt Small None Present -Exudate Type Serosanguineous -Wound Margin Distinct, Outline Attached -Granulation Amt Small (1-33%) -Granulation Quality Ventura -Slough/Fibrin No Yes -Necrosis Amt None Present (0 Small (1-33%) %) -Necrotic Tissue Type Eschar -Structure Exposed N/A -Texture (Bernadette-wound Skin Appearance) No Abnormality, Assessed, Assessed Scarring -Moisture (Bernadette-wound Skin Appearance) No Abnormality, Assessed Assessed -Color (Bernadette-wound Skin Appearance) No Abnormality, Assessed Assessed -Temperature (Bernadette-wound Skin No Abnormality No Abnormality Appearance) (Pt Warm) (Pt Warm) -Tenderness on Palpation (Bernadette-wound No No Skin Appearance) -Ulcer Cleansing Soap and Water Wound Cleanser -Foul Odor after Cleansing No No -Anesthetic Used 5% Lidocaine 4% Lidocaine Gel Solution #6- L MEDIAL FOOT -Combined with other wound No No -Current Size (cm) - Length 3.4 3.0 3.2 -Current Size (cm) - Width 2.5 2.6 2.2 -Current Size (cm) - Depth 1.1 0.1 1.3 -Total Square Cm 8.50 7.80 7.04 -Date of Last Picture (Recall this 01/30/22 field) -Photo Taken No Yes -Epithelialization Small 1-33% -Tunneling No No -Undermining/Tunneling No Yes No -Undermining/Tunneling Starts (O'clock 2 ) -Undermining/Tunneling Ends (O'clock) 4 -Maximum Distance (cm) 1.4 -Circular Undermining No No -Change in Wound Grade/Stage No -Exudate Amt Medium Medium Large -Exudate Type Serosanguineous Serosanguineous Yellow/Green -Wound Margin Distinct, Flat & Intact Distinct, Outline Outline Attached Attached -Granulation Amt Medium (34-66%) Medium (34-66%) Large (67-100%) -Granulation Quality Ventura Pale,Ventura Pale,Red -Slough/Fibrin Yes Yes -Necrosis Amt Medium (34-66%) Medium (34-66%) Small (1-33%) -Necrotic Tissue Type Adherent Slough Adherent Slough Adherent Slough -Structure Exposed N/A -Texture (Bernadette-wound Skin Appearance) No Abnormality, Assessed Assessed, Assessed Scarring -Moisture (Bernadette-wound Skin Appearance) No Abnormality, Assessed Assessed Assessed -Color (Bernadette-wound Skin Appearance) No Abnormality, Assessed Assessed Assessed -Temperature (Bernadette-wound Skin No Abnormality No Abnormality Appearance) (Pt Warm) (Pt Warm) -Tenderness on Palpation (Bernadette-wound No No No Skin Appearance) -Ulcer Cleansing Soap and Water Soap and Water Soap and Water -Foul Odor after Cleansing No No No -Anesthetic Used 5% Lidocaine 4% Lidocaine 4% Lidocaine Gel Solution Solution #4- L PLANTAR FOOT -Combined with other wound No No -Current Size (cm) - Length 1.2 1.7 0.4 -Current Size (cm) - Width 0.8 0.7 0.3 -Current Size (cm) - Depth 0.1 0.4 0.1 -Total Square Cm 0.96 1.19 0.12 -Date of Last Picture (Recall this 01/30/22 field) -Photo Taken Yes Yes -Epithelialization Medium 34-66% -Tunneling No No -Undermining/Tunneling No No -Circular Undermining No No -Change in Wound Grade/Stage No -Exudate Amt Medium Small Small -Exudate Type Serosanguineous Serosanguineous Serosanguineous -Wound Margin Distinct, Flat & Intact Distinct, Outline Outline Attached Attached -Granulation Amt None Present (0 Large (67-100%) Large (67-100%) %) -Granulation Quality N/A Pale,[place] Pale -Slough/Fibrin No Yes -Necrosis Amt None Present (0 Small (1-33%) Small (1-33%) %) -Necrotic Tissue Type Adherent Slough Adherent Slough -Structure Exposed N/A -Texture (Bernadette-wound Skin Appearance) No Abnormality, Assessed Assessed, Assessed Scarring -Moisture (Bernadette-wound Skin Appearance) No Abnormality, Assessed Assessed,Dry/ Assessed Scaly -Color (Bernadette-wound Skin Appearance) No Abnormality, Assessed Assessed Assessed -Temperature (Bernadette-wound Skin No Abnormality No Abnormality No Abnormality Appearance) (Pt Warm) (Pt Warm) (Pt Warm) -Tenderness on Palpation (Bernadette-wound No No No Skin Appearance) -Ulcer Cleansing Rinsed/ Soap and Water Soap and Water Irrigated with Saline -Foul Odor after Cleansing No No No -Anesthetic Used 5% Lidocaine 4% Lidocaine 4% Lidocaine Gel Solution Solution Lower Limb Edema Present NA 02/06/22 02/13/22 10:21 10:33 Wound Center Nurse 1 #7 Left foot 4th toe amp site -Combined with other wound -Current Size (cm) - Length -Current Size (cm) - Width -Current Size (cm) - Depth -Total Square Cm -Date of Last Picture (Recall this field) -Photo Taken -Epithelialization -Tunneling -Undermining/Tunneling -Circular Undermining -Change in Wound Grade/Stage -Exudate Amt -Exudate Type -Wound Margin -Granulation Amt -Granulation Quality -Slough/Fibrin -Necrosis Amt -Structure Exposed -Texture (Bernadette-wound Skin Appearance) -Moisture (Bernadette-wound Skin Appearance) -Color (Bernadette-wound Skin Appearance) -Temperature (Bernadette-wound Skin Appearance) -Tenderness on Palpation (Bernadette-wound Skin Appearance) -Ulcer Cleansing -Foul Odor after Cleansing -Anesthetic Used 8-left 2nd toe ulcer -Combined with other wound No No -Current Size (cm) - Length 0.1 0.1 -Current Size (cm) - Width 0.1 0.1 -Current Size (cm) - Depth 0.1 0.1 -Total Square Cm 0.01 0.01 -Date of Last Picture (Recall this 02/06/22 02/13/22 field) -Photo Taken Yes Yes -Epithelialization Large 67-100% Large 67-100% -Tunneling No -Undermining/Tunneling No No -Circular Undermining No No -Change in Wound Grade/Stage -Exudate Amt None Present None Present -Exudate Type -Wound Margin Flat & Intact -Granulation Amt None Present (0 %) -Granulation Quality N/A -Slough/Fibrin No -Necrosis Amt None Present (0 %) -Necrotic Tissue Type -Structure Exposed N/A -Texture (Bernadette-wound Skin Appearance) Assessed, Assessed, Scarring Scarring -Moisture (Bernadette-wound Skin Appearance) Assessed,Dry/ Assessed,Dry/ Scaly Scaly -Color (Bernadette-wound Skin Appearance) Assessed No Abnormality, Assessed -Temperature (Bernadette-wound Skin No Abnormality No Abnormality Appearance) (Pt Warm) (Pt Warm) -Tenderness on Palpation (Bernadette-wound No No Skin Appearance) -Ulcer Cleansing Soap and Water Soap and Water -Foul Odor after Cleansing No No -Anesthetic Used 4% Lidocaine 5% Lidocaine Solution Gel #6- L MEDIAL FOOT -Combined with other wound No No -Current Size (cm) - Length 3.1 3.1 -Current Size (cm) - Width 2.4 1.9 -Current Size (cm) - Depth 0.6 0.9 -Total Square Cm 7.44 5.89 -Date of Last Picture (Recall this 02/06/22 02/13/22 field) -Photo Taken Yes Yes -Epithelialization Small 1-33% Small 1-33% -Tunneling No No -Undermining/Tunneling No No -Undermining/Tunneling Starts (O'clock ) -Undermining/Tunneling Ends (O'clock) -Maximum Distance (cm) -Circular Undermining No No -Change in Wound Grade/Stage -Exudate Amt Medium Medium -Exudate Type Serosanguineous Serosanguineous -Wound Margin Distinct, Flat & Intact Outline Attached -Granulation Amt Large (67-100%) Large (67-100%) -Granulation Quality Red Red -Slough/Fibrin Yes Yes -Necrosis Amt Small (1-33%) Small (1-33%) -Necrotic Tissue Type Adherent Slough Adherent Slough -Structure Exposed N/A -Texture (Bernadette-wound Skin Appearance) Assessed, Assessed, Localized Edema Scarring ,Scarring -Moisture (Bernadette-wound Skin Appearance) Assessed, Assessed, Maceration Maceration -Color (Bernadette-wound Skin Appearance) Assessed, Assessed,Rubor Erythema -Temperature (Bernadette-wound Skin No Abnormality No Abnormality Appearance) (Pt Warm) (Pt Warm) -Tenderness on Palpation (Bernadette-wound No Yes Skin Appearance) -Ulcer Cleansing Soap and Water Soap and Water -Foul Odor after Cleansing No No -Anesthetic Used 4% Lidocaine 5% Lidocaine Solution Gel #4- L PLANTAR FOOT -Combined with other wound No No -Current Size (cm) - Length 1.2 0.9 -Current Size (cm) - Width 0.7 0.6 -Current Size (cm) - Depth 0.2 0.3 -Total Square Cm 0.84 0.54 -Date of Last Picture (Recall this 02/06/22 02/13/22 field) -Photo Taken Yes Yes -Epithelialization Small 1-33% Large 67-100% -Tunneling No No -Undermining/Tunneling No No -Circular Undermining No No -Change in Wound Grade/Stage -Exudate Amt Small Medium -Exudate Type Serosanguineous Serosanguineous -Wound Margin Distinct, Flat & Intact Outline Attached -Granulation Amt Large (67-100%) Large (67-100%) -Granulation Quality Red [place] -Slough/Fibrin No Yes -Necrosis Amt Small (1-33%) None Present (0 %) -Necrotic Tissue Type Adherent Slough Adherent Slough -Structure Exposed N/A -Texture (Bernadette-wound Skin Appearance) Assessed, Assessed, Scarring Localized Edema ,Scarring -Moisture (Bernadette-wound Skin Appearance) Assessed,Dry/ Assessed,Dry/ Scaly Scaly -Color (Bernadette-wound Skin Appearance) Assessed No Abnormality, Assessed -Temperature (Bernadette-wound Skin No Abnormality No Abnormality Appearance) (Pt Warm) (Pt Warm) -Tenderness on Palpation (Bernadette-wound No No Skin Appearance) -Ulcer Cleansing Soap and Water Soap and Water -Foul Odor after Cleansing No No -Anesthetic Used 4% Lidocaine 5% Lidocaine Solution Gel Lower Limb Edema Present No WC - Nurse 2 - General Ulcer CM Notes Start: 01/16/22 11:40 Freq: Status: Active Protocol: Activity Type Activity Date Activity User E-sign Co-sign Detail Recorded Client Recorded Date Recorded By Document 01/16/22 12:05 ORESTES [id number] 01/16/22 12:10 Document 01/23/22 12:49 ORESTES [id number] 01/23/22 12:53 Document 01/30/22 10:51 ORESETS [id number] 01/30/22 11:01 Document 02/06/22 13:17 ORESTES [id number] 02/06/22 13:20 01/16/22 01/23/22 01/30/22 12:05 12:49 10:51 Wound Center Nurse 2 #7 Left foot 4th toe amp site -Time 12:07 -Correct Patient Yes No No -Correct Side, Site, Position Yes No No -Correct Procedure Yes No No -Procedure Performed Yes No No -Type of Procedure Debridement -Clinical Debridement Subcutaneous -Tissue Removed Subcutaneous -Post Debridement (cm) - Length 0.3 0 -Post Debridement (cm) - Width 0.2 0 -Post Debridement (cm) - Depth 0.2 0 -Total Square (Post) (cm) 0.06 0 -Area of Debridement (cm) - Length 0.3 0 -Area of Debridement (cm) - Width 0.2 0 -Total Square (Area) (cm) 0.06 0 -Tunneling No -Undermining/Tunneling No -Circular Undermining No -Wound/Ulcer Outcome Not Healed Not Healed Healed- Epithelialized -Ulcer Cleansing Rinsed/ Irrigated with Saline -Foul Odor after Cleansing No -Bioengineered Tissue No -Bleeding Controlled with Pressure -Treatment Response Procedure Tolerated Well -Offloading Yes -Type of Offloading Surgical Shoe -Debridement - Subq, 1st 20sq cm No 8-left 2nd toe ulcer -Time 12:05 10:58 -Correct Patient Yes No Yes -Correct Side, Site, Position Yes No Yes -Correct Procedure Yes No Yes -Procedure Performed Yes No Yes -Type of Procedure Debridement Debridement -Clinical Debridement Subcutaneous Subcutaneous -Tissue Removed Subcutaneous Subcutaneous -Post Debridement (cm) - Length 0.3 0.1 -Post Debridement (cm) - Width 0.2 0.2 -Post Debridement (cm) - Depth 0.1 0.1 -Total Square (Post) (cm) 0.06 0.02 -Area of Debridement (cm) - Length 0.3 0.1 -Area of Debridement (cm) - Width 0.2 0.2 -Total Square (Area) (cm) 0.06 0.02 -Tunneling No No -Undermining/Tunneling No No -Circular Undermining No No -Wound/Ulcer Outcome Not Healed Not Healed Not Healed -Ulcer Cleansing Rinsed/ Rinsed/ Irrigated with Irrigated with Saline Saline -Foul Odor after Cleansing No No -Bioengineered Tissue No No -Bleeding Controlled with Pressure Pressure -Treatment Response Procedure Procedure Tolerated Well Tolerated Well -Offloading Yes Yes -Type of Offloading Surgical Shoe Surgical Shoe -Debridement - Subq, 1st 20sq cm Yes Yes #6- L MEDIAL FOOT -Time 12:08 12:50 10:59 -Correct Patient Yes Yes Yes -Correct Side, Site, Position Yes Yes Yes -Correct Procedure Yes Yes Yes -Procedure Performed Yes Yes Yes -Type of Procedure Debridement Debridement Debridement -Clinical Debridement Subcutaneous Subcutaneous Subcutaneous -Tissue Removed Subcutaneous Subcutaneous Subcutaneous -Post Debridement (cm) - Length 3.5 3.0 3.3 -Post Debridement (cm) - Width 2.5 2.7 2.3 -Post Debridement (cm) - Depth 1.1 0.1 1.3 -Total Square (Post) (cm) 8.75 8.10 7.59 -Area of Debridement (cm) - Length 3.5 3.0 3.3 -Area of Debridement (cm) - Width 2.5 2.7 2.3 -Total Square (Area) (cm) 8.75 8.10 7.59 -Tunneling No No No -Undermining/Tunneling No No No -Circular Undermining No No No -Wound/Ulcer Outcome Not Healed Not Healed Not Healed -Ulcer Cleansing Rinsed/ Rinsed/ Rinsed/ Irrigated with Irrigated with Irrigated with Saline Saline Saline -Foul Odor after Cleansing No No No -Bioengineered Tissue No Yes Yes -Type of Bioengineered Tissue Epifix Mesh Epifix Mesh -Expiration Date 10/16/26 10/16/26 -Product Lot Number [id number] -Percent Used 100 100 -Lot number of Saline Used [id number] -Bleeding Controlled with Pressure Pressure -Treatment Response Procedure Procedure Procedure Tolerated Well Tolerated Well Tolerated Well -Offloading Yes Yes Yes -Type of Offloading Surgical Shoe Surgical Shoe Surgical Shoe -Debridement - Subq, 1st 20sq cm No No No -Apply Skin Sub - 1st 25 sq cm - Feet 1 1 -Epifix Mesh (per sq cm) 11 11 #4- L PLANTAR FOOT -Time 12:09 11:00 -Correct Patient Yes No Yes -Correct Side, Site, Position Yes No Yes -Correct Procedure Yes No Yes -Procedure Performed Yes No Yes -Type of Procedure Debridement Debridement -Clinical Debridement Subcutaneous Subcutaneous -Tissue Removed Subcutaneous Subcutaneous -Post Debridement (cm) - Length 1.2 0.4 -Post Debridement (cm) - Width 0.9 0.4 -Post Debridement (cm) - Depth 0.1 0.1 -Total Square (Post) (cm) 1.08 0.16 -Area of Debridement (cm) - Length 1.2 0.4 -Area of Debridement (cm) - Width 0.9 0.4 -Total Square (Area) (cm) 1.08 0.16 -Tunneling No No -Undermining/Tunneling No No -Circular Undermining No No -Wound/Ulcer Outcome Not Healed Not Healed Not Healed -Ulcer Cleansing Rinsed/ Rinsed/ Irrigated with Irrigated with Saline Saline -Foul Odor after Cleansing No No -Bioengineered Tissue Yes No -Type of Bioengineered Tissue Epifix 18mm Disc -Expiration Date 10/16/26 -Product Lot Number [id number] -Percent Used 100 -Lot number of Saline Used [id number] -Bleeding Controlled with Pressure Pressure -Treatment Response Procedure Procedure Tolerated Well Tolerated Well -Offloading Yes Yes -Type of Offloading Surgical Shoe Surgical Shoe -Debridement - Subq, 1st 20sq cm No No -Apply Skin Sub - 1st 25 sq cm - Feet 1 -Epifix 18mm Disc 3 Pain Scale: 0-10 Numeric Is Patient Pain Free? Yes Yes Yes 02/06/22 13:17 Wound Center Nurse 2 #7 Left foot 4th toe amp site -Time -Correct Patient -Correct Side, Site, Position -Correct Procedure -Procedure Performed -Type of Procedure -Clinical Debridement -Tissue Removed -Post Debridement (cm) - Length -Post Debridement (cm) - Width -Post Debridement (cm) - Depth -Total Square (Post) (cm) -Area of Debridement (cm) - Length -Area of Debridement (cm) - Width -Total Square (Area) (cm) -Tunneling -Undermining/Tunneling -Circular Undermining -Wound/Ulcer Outcome -Ulcer Cleansing -Foul Odor after Cleansing -Bioengineered Tissue -Bleeding Controlled with -Treatment Response -Offloading -Type of Offloading -Debridement - Subq, 1st 20sq cm 8-left 2nd toe ulcer -Time -Correct Patient No -Correct Side, Site, Position No -Correct Procedure No -Procedure Performed No -Type of Procedure -Clinical Debridement -Tissue Removed -Post Debridement (cm) - Length -Post Debridement (cm) - Width -Post Debridement (cm) - Depth -Total Square (Post) (cm) -Area of Debridement (cm) - Length -Area of Debridement (cm) - Width -Total Square (Area) (cm) -Tunneling -Undermining/Tunneling -Circular Undermining -Wound/Ulcer Outcome Not Healed -Ulcer Cleansing -Foul Odor after Cleansing -Bioengineered Tissue -Bleeding Controlled with -Treatment Response -Offloading -Type of Offloading -Debridement - Subq, 1st 20sq cm #6- L MEDIAL FOOT -Time 13:17 -Correct Patient Yes -Correct Side, Site, Position Yes -Correct Procedure Yes -Procedure Performed Yes -Type of Procedure Debridement -Clinical Debridement Subcutaneous -Tissue Removed Subcutaneous -Post Debridement (cm) - Length 3.2 -Post Debridement (cm) - Width 2.4 -Post Debridement (cm) - Depth 0.6 -Total Square (Post) (cm) 7.68 -Area of Debridement (cm) - Length 3.2 -Area of Debridement (cm) - Width 2.4 -Total Square (Area) (cm) 7.68 -Tunneling No -Undermining/Tunneling No -Circular Undermining No -Wound/Ulcer Outcome Not Healed -Ulcer Cleansing Rinsed/ Irrigated with Saline -Foul Odor after Cleansing No -Bioengineered Tissue Yes -Type of Bioengineered Tissue Epifix Mesh -Expiration Date 10/16/26 -Product Lot Number [id number] -Percent Used 100 -Lot number of Saline Used [id number] -Bleeding Controlled with Pressure -Treatment Response Procedure Tolerated Well -Offloading Yes -Type of Offloading Surgical Shoe -Debridement - Subq, 1st 20sq cm No -Apply Skin Sub - 1st 25 sq cm - Feet 1 -Epifix Mesh (per sq cm) 11 #4- L PLANTAR FOOT -Time 13:18 -Correct Patient Yes -Correct Side, Site, Position Yes -Correct Procedure Yes -Procedure Performed Yes -Type of Procedure Debridement -Clinical Debridement Subcutaneous -Tissue Removed Subcutaneous -Post Debridement (cm) - Length 1.2 -Post Debridement (cm) - Width 0.8 -Post Debridement (cm) - Depth 0.2 -Total Square (Post) (cm) 0.96 -Area of Debridement (cm) - Length 1.2 -Area of Debridement (cm) - Width 0.8 -Total Square (Area) (cm) 0.96 -Tunneling No -Undermining/Tunneling No -Circular Undermining No -Wound/Ulcer Outcome Not Healed -Ulcer Cleansing Rinsed/ Irrigated with Saline -Foul Odor after Cleansing No -Bioengineered Tissue No -Type of Bioengineered Tissue -Expiration Date -Product Lot Number -Percent Used -Lot number of Saline Used -Bleeding Controlled with Pressure -Treatment Response Procedure Tolerated Well -Offloading Yes -Type of Offloading Surgical Shoe -Debridement - Subq, 1st 20sq cm Yes -Apply Skin Sub - 1st 25 sq cm - Feet -Epifix 18mm Disc Pain Scale: 0-10 Numeric Is Patient Pain Free? Yes WC - Nurse 3 - General Ulcer D/C NN Start: 01/16/22 11:40 Freq: Status: Active Protocol: Activity Type Activity Date Activity User E-sign Co-sign Detail Recorded Client Recorded Date Recorded By Document 01/16/22 12:13 [facility] [id number] 01/16/22 12:15 [facility] Document 01/23/22 10:42 [facility] [id number] 01/23/22 10:44 [facility] Document 01/30/22 11:13 [facility] [id number] 01/30/22 11:13 [facility] Document 02/06/22 11:06 [facility] [id number] 02/06/22 11:07 [facility] Document 02/13/22 11:22 [facility] [id number] 02/13/22 11:23 [facility] 01/16/22 01/23/22 01/30/22 12:13 10:42 11:13 Wound Care Nurse 3 #7 Left foot 4th toe amp site -Ulcer Cleansing Rinsed/ Rinsed/ Irrigated with Irrigated with Saline Saline -Foul Odor after Cleansing No No -Other Dressing DAKINS GAUZE; DAKINS MOIST DRSG PER [place] ANESTHESIOLOGY MEDICAL DOCTOR GAUZE -Primary Dressing Covered/Secured with Dry Gauze & Dry Gauze & Roll Gauze, Roll Gauze, Secured with Secured with Tape Tape -Other Covering PER DL ANESTHESIOLOGY MEDICAL DOCTOR 8-left 2nd toe ulcer -Ulcer Cleansing Rinsed/ Rinsed/ Irrigated with Irrigated with Saline Saline -Foul Odor after Cleansing No No -Other Dressing DAKINS GAUZE; DAKINS GAUZE, dakins PER [place] ANESTHESIOLOGY MEDICAL DOCTOR PER DL ANESTHESIOLOGY MEDICAL DOCTOR -Primary Dressing Covered/Secured with Dry Gauze & Dry Gauze & Dry Gauze & Roll Gauze, Roll Gauze, Roll Gauze, Secured with Secured with Secured with Tape Tape Tape -Other Covering #6- L MEDIAL FOOT -Ulcer Cleansing Rinsed/ Irrigated with Saline -Foul Odor after Cleansing No -Other Dressing DAKINS GAUZE; EPIMESH epifix PER [place] ANESTHESIOLOGY MEDICAL DOCTOR -Primary Dressing Covered/Secured with Dry Gauze & Dry Gauze & Dry Gauze & Roll Gauze, Roll Gauze, Roll Gauze, Secured with Secured with Secured with Tape Tape Tape -Other Covering PER DL ANESTHESIOLOGY MEDICAL DOCTOR abd #4- L PLANTAR FOOT -Ulcer Cleansing -Foul Odor after Cleansing -Other Dressing EPIFIX, ABD, EPIMESH, PER DL abd PER [place] ANESTHESIOLOGY MEDICAL DOCTOR ANESTHESIOLOGY MEDICAL DOCTOR -Primary Dressing Covered/Secured with Dry Gauze & Dry Gauze & Dry Gauze & Roll Gauze, Roll Gauze, Roll Gauze, Secured with Secured with Secured with Tape Tape Tape -Other Covering Left -Compression Wrap Mian Wrap Mian Wrap Mian Wrap -Other MIAN TO SECURE MIAN TO SECURE mian to secure Treatment Response Procedure Procedure Procedure Tolerated Well Tolerated Well Tolerated Well Pain Scale: 0-10 Numeric Is Patient Pain Free? Yes Yes Yes WC - Visit Discharge Discharge Condition Stable Stable Stable Ambulatory Status Wheelchair Wheelchair Wheelchair Transportation Private Auto Private Auto Private Auto 02/06/22 02/13/22 11:06 11:22 Wound Care Nurse 3 #7 Left foot 4th toe amp site -Ulcer Cleansing -Foul Odor after Cleansing -Other Dressing -Primary Dressing Covered/Secured with -Other Covering 8-left 2nd toe ulcer -Ulcer Cleansing Rinsed/ Irrigated with Saline -Foul Odor after Cleansing No -Other Dressing dakins moist gauze -Primary Dressing Covered/Secured with Dry Gauze & Dry Gauze & Roll Gauze, Roll Gauze, Secured with Secured with Tape Tape -Other Covering PAD AND PROTECT #6- L MEDIAL FOOT -Ulcer Cleansing -Foul Odor after Cleansing -Other Dressing epi EPIMESH -Primary Dressing Covered/Secured with Dry Gauze & Dry Gauze & Roll Gauze, Roll Gauze, Secured with Secured with Tape Tape -Other Covering abd ABD #4- L PLANTAR FOOT -Ulcer Cleansing Rinsed/ Rinsed/ Irrigated with Irrigated with Saline Saline -Foul Odor after Cleansing No No -Other Dressing hydrogel HYDROGEL -Primary Dressing Covered/Secured with Dry Gauze & Dry Gauze & Roll Gauze, Roll Gauze, Secured with Secured with Tape Tape -Other Covering abd ABD Left -Compression Wrap Mian Wrap Mian Wrap -Other mian to secure Treatment Response Procedure Procedure Tolerated Well Tolerated Well Pain Scale: 0-10 Numeric Is Patient Pain Free? Yes Yes WC - Visit Discharge Discharge Condition Stable Stable Ambulatory Status Wheelchair Wheelchair Transportation Private Auto Private Auto Assessment/Plan Assessment/Plan (1) Peripheral vascular disease, unspecified: CODE(S): I73.9 - Peripheral vascular disease, unspecified (2) Type 2 diabetes mellitus with diabetic polyneuropathy: CODE(S): E11.42 - Type 2 diabetes mellitus with diabetic polyneuropathy (3) Chronic diabetic ulcer of left foot determined by examination: CODE(S): E11.621 - Type 2 diabetes mellitus with foot ulcer; L97.529 - Non-pressure chronic ulcer of other part of left foot with unspecified severity PLAN: Patient examined evaluated, all findings discussed with patient in detail. Wounds to left foot are improving at this time. dorsal lateral foot wound improving. Plantar midfoot wound improving. Increased granulation around medial first MPJ and fibrous and subcutaneous tissue was debrided today. Patient is following with vascular surgery as an outpatient. Patient has healthy bleeding upon debridement suggestive of good wound healing potential. Blood thinner use noted. no infection today. The left first metatarsal phalangeal joint wound, dorsal lateral foot wound and plantar midfoot wounds were debrided down to including level of capsule and tendon of all nonviable tissue without incident. This was performed using 15 blade scalpel and forceps. Hemostasis obtained with light compression. Patient tolerated procedure well. No anesthesia due to neuropathy. Pre and postdebridement measurements documented in nursing notes. He was approved for application of advanced wound healing product and epi cord was applied according to standard protocol after verbal consent was obtained. This was applied to the medial first MPJ site in which insurance approval was obtained for. 100% of the product was utilized (epifix 4x4 11 billing unit graft). This was further secured in place with a wound veil and Steri-Strips. A secondary dressing was applied and he will keep this clean, dry, and intact until follow-up next week. The indications, benefits, application series, and anticipated healing time was reviewed. Patient will perform daily cleansing of his foot with dressing changes consisting of Dakin's DSD no compression to non epicord application site (s). Patient will maintain heel weightbearing status in cam walking boot assisted with a walker patient has a walker at home. Patient will follow up in 1 week. Patient is high risk for proximal amputation and understands this.
== END 2022-02-14 23:59 | disposition home or self-care (01) ==
LOC: WC 10:30
PROVIDERS: PCP Student in an Organized Health Care Education/Training Program; Visit Provider Podiatrist
DX: E11.621 Type 2 diabetes mellitus with foot ulcer (principal); E11.51 Type 2 diabetes mellitus with diabetic peripheral angiopathy without gangrene; L97.523 Non-pressure chronic ulcer of other part of left foot with necrosis of muscle; E11.42 Type 2 diabetes mellitus with diabetic polyneuropathy
CPT/HCPCS: 11042; 15275; Q4186

== ENCOUNTER 2022-03-08 10:45 | Outpatient (RCR) | payer OTHER, SELFPAY ==
[2022-02-15 00:25] VITALS: BP 115/80; PULSE 87; RESP 18; TEMP 35.8; BMI 23.8
[2022-02-20 10:49] VITALS: BP 122/71; PULSE 96; RESP 16; TEMP 36; BMI 23.8
--- NOTE | 2022-02-20 11:20 | PN.PCM_ITS ---
History of Present Illness Date of Service: 02/20/22 Chief Complaint: Left foot ulcers x 3 History of Wound: This 61-year-old male seen in the wound care center for chronic left foot ulcerations secondary to peripheral arterial disease and amputations. Patient recently underwent quadruple bypass surgery successfully at [facility] [place]. Patient has stent placed in popliteal artery due to popliteal occlusion and left lower extremity on the hospital previously. Subsequently the next day patient had a wound debridement with amputation of the fourth ray left open with vessel loop closure to the dorsal midfoot and wet-to-dry dressings to the plantar midfoot and medial first metatarsophalangeal joints. At this time he denies any constitutional symptoms, chest pain, calf pain, or shortness of breath. Patient received 6 weeks IV antibiotics at [facility]. He is amendable to proceed with advanced wound healing product application today if it has been approved by the insurance. Objective Data Objective Data Vital Signs: Vital Signs Temp Pulse Resp BP O2 Del Method 96.8 F L 96 16 122/71 H Room Air 02/20/22 10:49 02/20/22 10:49 02/20/22 10:49 02/20/22 10:49 02/20/22 10:49 Oxygen Delivery Method Room Air Weight: 77.564 kg Body Mass Index (BMI) 23.8 Physical Exam Narrative Improve vascularity left lower extremity. Dermatologic: Partial third and fourth ray resection sites with with wound demonstrates granular natured base, decrease in size. Plantar midfoot wound demonstrates fibrogranular base pre and postdebridement, decrease in size. Medial first metatarsal phalangeal joint wound is down to level of capsule there is a bleeding granular wound edge but the base of the wound improving and granulating in nature. Adjacent skin is hairless and atrophic. There is no visualized or palpable bone. New wound to dorsal second digit. All other wounds improving at this time. Wound to second digit at apex of hammertoe formation on the left foot. Demonstrates granular base no signs of infection deep probing or undermining. Musculoskeletal: Partial amputation to left third and fourth ray. Muscular strength 5 out of 5 to bilateral lower extremity compartments No pain with calf squeeze bilateral lower extremities. Debridement Note Debridement Note Post-Debridement Measurements and Additional Note: Post-Debridement Measurements/Treatment WC - Nurse 1 - General Ulcer Assessment Start: 02/20/22 10:49 Freq: Status: Active Protocol: CIRA Activity Type Activity Date Activity User E-sign Co-sign Detail Recorded Client Recorded Date Recorded By Document 02/20/22 10:49 [facility] [id number] 02/20/22 11:01 [facility] 02/20/22 10:49 - Today's Visit Information Type of service Follow-up Visit (Physician/[facility] [employer] ) Arrival Mode Wheelchair Transfer Assistance None Patient Identification Verified (Name & Yes ) Patient Requires Transmission-Based No Precautions Height and Weight Body Mass Index (BMI) 23.8 BMI Classification Normal Vital Signs Temperature (97.8 F-99.1 F) 96.8 F L Temperature Source Temporal Pulse Rate (60-100) 96 Pulse Location Monitor Respiratory Rate (12-18) 16 Respiratory rate source Observation Oxygen Delivery Method Room Air Blood Pressure (90/60-120/80) 122/71 H Blood Pressure Mean (mm Hg) 88 Source Monitor Position Sitting Blood Pressure Location Left Arm History Since Last Visit- (Skip if this is Patient's initial visit) Have you changed medications since your No last visit? Any new allergies or adverse reactions No Had a fall/change in ADL's that may No increase risk of falls Signs or symptoms of abuse and/or No neglect since last visit Have you been in the hospital since your No last visit? Has dressing in place as prescribed No Has compression in place as prescribed N/A Has offloadiing in place as prescribed N/A Experienced any changes in pain level or No management Left Footwear Surgical Shoe with pressure relief insole Right Footwear Regular Shoe Pain Scale: 0-10 Numeric Is Patient Pain Free? Yes - Nurse 1 - General Ulcer Measurement Start: 02/20/22 10:49 Freq: Status: Active Protocol: Activity Type Activity Date Activity User E-sign Co-sign Detail Recorded Client Recorded Date Recorded By Document 02/20/22 10:49 [facility] [id number] 02/20/22 11:01 [facility] 02/20/22 10:49 Wound Center Nurse 1 #6- L MEDIAL FOOT -Combined with other wound No -Current Size (cm) - Length 2.5 -Current Size (cm) - Width 2.4 -Current Size (cm) - Depth 0.6 -Total Square Cm 6.00 -Date of Last Picture (Recall this 02/20/22 field) -Photo Taken Yes -Epithelialization Small 1-33% -Tunneling No -Undermining/Tunneling No -Circular Undermining No -Exudate Amt Medium -Exudate Type Serosanguineous -Wound Margin Distinct, Outline Attached -Granulation Amt Large (67-100%) -Granulation Quality Hyper- granulation, Pale,Red -Slough/Fibrin Yes -Necrosis Amt Small (1-33%) -Necrotic Tissue Type Adherent Slough -Texture (Bernadette-wound Skin Appearance) Assessed, Scarring -Moisture (Bernadette-wound Skin Appearance) Assessed -Color (Bernadette-wound Skin Appearance) Assessed -Temperature (Bernadette-wound Skin No Abnormality Appearance) (Pt Warm) -Tenderness on Palpation (Bernadette-wound No Skin Appearance) -Ulcer Cleansing Soap and Water -Foul Odor after Cleansing No -Anesthetic Used 5% Lidocaine Gel #4- L PLANTAR FOOT -Combined with other wound No -Current Size (cm) - Length 0.5 -Current Size (cm) - Width 0.4 -Current Size (cm) - Depth 0.2 -Total Square Cm 0.20 -Date of Last Picture (Recall this 02/20/22 field) -Photo Taken Yes -Epithelialization None Present -Tunneling No -Undermining/Tunneling No -Circular Undermining No -Exudate Amt Small -Exudate Type Serous -Wound Margin Distinct, Outline Attached -Granulation Amt Large (67-100%) -Granulation Quality [place] -Slough/Fibrin No -Necrosis Amt None Present (0 %) -Texture (Bernadette-wound Skin Appearance) Assessed, Scarring -Moisture (Bernadette-wound Skin Appearance) Assessed,Dry/ Scaly -Color (Bernadette-wound Skin Appearance) Assessed -Temperature (Bernadette-wound Skin No Abnormality Appearance) (Pt Warm) -Tenderness on Palpation (Bernadette-wound No Skin Appearance) -Ulcer Cleansing Soap and Water -Foul Odor after Cleansing No -Anesthetic Used 5% Lidocaine Gel WC - Nurse 2 - General Ulcer CM Notes Start: 02/20/22 10:49 Freq: Status: Active Protocol: Activity Type Activity Date Activity User E-sign Co-sign Detail Recorded Client Recorded Date Recorded By Document 02/20/22 11:09 [facility] [id number] 02/20/22 11:16 [facility] 02/20/22 11:09 Wound Center Nurse 2 #6- L MEDIAL FOOT -Time 11:09 -Correct Patient Yes -Correct Side, Site, Position Yes -Correct Procedure Yes -Procedure Performed Yes -Type of Procedure Debridement -Clinical Debridement Subcutaneous -Tissue Removed Subcutaneous -Post Debridement (cm) - Length 2.5 -Post Debridement (cm) - Width 2.5 -Post Debridement (cm) - Depth 0.6 -Total Square (Post) (cm) 6.25 -Area of Debridement (cm) - Length 2.5 -Area of Debridement (cm) - Width 2.5 -Total Square (Area) (cm) 6.25 -Tunneling No -Undermining/Tunneling No -Circular Undermining No -Wound/Ulcer Outcome Not Healed -Ulcer Cleansing Rinsed/ Irrigated with Saline -Foul Odor after Cleansing No -Bioengineered Tissue Yes -Type of Bioengineered Tissue Epifix Mesh -Expiration Date 12/16/26 -Product Lot Number [id number] -Percent Used 100 -Lot number of Saline Used [id number] -Bleeding Controlled with Pressure -Treatment Response Procedure Tolerated Well -Offloading Yes -Type of Offloading Surgical Shoe -Debridement - Subq, 1st 20sq cm No -Apply Skin Sub - 1st 25 sq cm - Feet 1 -Epifix Mesh (per sq cm) 11 #4- L PLANTAR FOOT -Time 11:15 -Correct Patient Yes -Correct Side, Site, Position Yes -Correct Procedure Yes -Procedure Performed Yes -Type of Procedure Debridement -Clinical Debridement Subcutaneous -Tissue Removed Subcutaneous -Post Debridement (cm) - Length 0.5 -Post Debridement (cm) - Width 0.4 -Post Debridement (cm) - Depth 0.1 -Total Square (Post) (cm) 0.20 -Area of Debridement (cm) - Length 0.5 -Area of Debridement (cm) - Width 0.4 -Total Square (Area) (cm) 0.20 -Tunneling No -Undermining/Tunneling No -Circular Undermining No -Wound/Ulcer Outcome Not Healed -Ulcer Cleansing Rinsed/ Irrigated with Saline -Foul Odor after Cleansing No -Bioengineered Tissue No -Bleeding Controlled with Pressure -Treatment Response Procedure Tolerated Well -Offloading Yes -Type of Offloading Surgical Shoe -Assistive Device(s) Wheelchair -Debridement - Subq, 1st 20sq cm Yes Pain Scale: 0-10 Numeric Is Patient Pain Free? Yes Assessment/Plan Assessment/Plan (1) Peripheral vascular disease, unspecified: CODE(S): I73.9 - Peripheral vascular disease, unspecified (2) Type 2 diabetes mellitus with diabetic polyneuropathy: CODE(S): E11.42 - Type 2 diabetes mellitus with diabetic polyneuropathy (3) Chronic diabetic ulcer of left foot determined by examination: CODE(S): E11.621 - Type 2 diabetes mellitus with foot ulcer; L97.529 - Non-pressure chronic ulcer of other part of left foot with unspecified severity PLAN: Patient examined evaluated, all findings discussed with patient in detail. Wounds to left foot are improving at this time. dorsal lateral foot wound improving. Plantar midfoot wound improving. Increased granulation around medial first MPJ and fibrous and subcutaneous tissue was debrided today. Patient is following with vascular surgery as an outpatient. Patient has healthy bleeding upon debridement suggestive of good wound healing potential. Blood thinner use noted. no infection today. The left first metatarsal phalangeal joint wound, dorsal lateral foot wound and plantar midfoot wounds were debrided down to including level of capsule and tendon of all nonviable tissue without incident. This was performed using 15 blade scalpel and forceps. Hemostasis obtained with light compression. Patient tolerated procedure well. No anesthesia due to neuropathy. Pre and postdebridement measurements documented in nursing notes. He was approved for application of advanced wound healing product and epi cord was applied according to standard protocol after verbal consent was obtained. This was applied to the medial first MPJ site in which insurance approval was obtained for. 100% of the product was utilized (epifix 4x4 11 billing unit graft). This was further secured in place with a wound veil and Steri-Strips. A secondary dressing was applied and he will keep this clean, dry, and intact until follow-up next week. The indications, benefits, application series, and anticipated healing time was reviewed. Patient will perform daily cleansing of his foot with dressing changes consisting of Dakin's DSD no compression to non epicord application site (s). Patient will maintain heel weightbearing status in cam walking boot assisted with a walker patient has a walker at home. Patient will follow up in 1 week. Patient is high risk for proximal amputation and understands this.
[2022-02-27 11:08] VITALS: BP 122/71; PULSE 90; RESP 18; TEMP 35.7; BMI 23.8
--- NOTE | 2022-02-27 11:34 | PN.PCM_ITS ---
History of Present Illness Date of Service: 02/27/22 Chief Complaint: Left foot ulcers x 3 History of Wound: This 61-year-old male seen in the wound care center for chronic left foot ulcerations secondary to peripheral arterial disease and amputations. Patient recently underwent quadruple bypass surgery successfully at [facility]. Patient has stent placed in popliteal artery due to popliteal occlusion and left lower extremity on the hospital previously. Subsequently the next day patient had a wound debridement with amputation of the fourth ray left open with vessel loop closure to the dorsal midfoot and wet-to-dry dressings to the plantar midfoot and medial first metatarsophalangeal joints. At this time he denies any constitutional symptoms, chest pain, calf pain, or shortness of breath. Patient received 6 weeks IV antibiotics at [facility]. He is amendable to proceed with advanced wound healing product application today if it has been approved by the insurance. Objective Data Objective Data Vital Signs: Vital Signs Temp Pulse Resp BP O2 Del Method 96.3 F L 90 18 122/71 H Room Air 02/27/22 11:08 02/27/22 11:08 02/27/22 11:08 02/27/22 11:08 02/27/22 11:08 Oxygen Delivery Method Room Air Weight: 77.564 kg Body Mass Index (BMI) 23.8 Physical Exam Narrative Improve vascularity left lower extremity. Dermatologic: Partial third and fourth ray resection sites with with wound demonstrates granular natured base, decrease in size. Plantar midfoot wound - healed. Medial first metatarsal phalangeal joint wound is down to level of capsule there is a bleeding granular wound edge but the base of the wound improving and granulating in nature. Adjacent skin is hairless and atrophic. There is no visualized or palpable bone. New wound to dorsal second digit. All other wounds improving at this time. Wound to second digit at apex of hammertoe formation on the left foot. Demonstrates granular base no signs of infection deep probing or undermining. Musculoskeletal: Partial amputation to left third and fourth ray. Muscular strength 5 out of 5 to bilateral lower extremity compartments No pain with calf squeeze bilateral lower extremities. Debridement Note Debridement Note Post-Debridement Measurements and Additional Note: Post-Debridement Measurements/Treatment ROYCE - Nurse 1 - General Ulcer Assessment Start: 02/20/22 10:49 Freq: Status: Active Protocol: LOWEXT Activity Type Activity Date Activity User E-sign Co-sign Detail Recorded Client Recorded Date Recorded By Document 02/20/22 10:49 [facility] [id number] 02/20/22 11:01 [facility] Document 02/27/22 11:08 [id number] 02/27/22 11:18 MW 02/20/22 02/27/22 10:49 11:08 - Today's Visit Information Type of service Follow-up Visit Follow-up Visit (Physician/PATIENT ACCOUNTS CLERK (Physician/PATIENT ACCOUNTS CLERK ) ) Arrival Mode Wheelchair Wheelchair Transfer Assistance None None Accompanied by self Patient Identification Verified (Name & Yes Yes ) Patient Requires Transmission-Based No No Precautions Safety Precautions NA Height and Weight Body Mass Index (BMI) 23.8 23.8 BMI Classification Normal Normal Vital Signs Temperature (97.8 F-99.1 F) 96.8 F L 96.3 F L Temperature Source Temporal Temporal Pulse Rate (60-100) 96 90 Pulse Location Monitor Monitor Respiratory Rate (12-18) 16 18 Respiratory rate source Observation Observation Oxygen Delivery Method Room Air Room Air Blood Pressure (90/60-120/80) 122/71 H 122/71 H Blood Pressure Mean (mm Hg) 88 88 Source Monitor Monitor Position Sitting Sitting Blood Pressure Location Left Arm Left Arm History Since Last Visit- (Skip if this is Patient's initial visit) Have you changed medications since your No No last visit? Any new allergies or adverse reactions No No Had a fall/change in ADL's that may No No increase risk of falls Signs or symptoms of abuse and/or No No neglect since last visit Have you been in the hospital since your No No last visit? Has dressing in place as prescribed No Yes Has compression in place as prescribed N/A Yes Has offloadiing in place as prescribed N/A N/A Experienced any changes in pain level or No No management Left Footwear Surgical Shoe Surgical Shoe with pressure with pressure relief insole relief insole Right Footwear Regular Shoe Pain Scale: 0-10 Numeric Is Patient Pain Free? Yes Yes - Nurse 1 - General Ulcer Measurement Start: 02/20/22 10:49 Freq: Status: Active Protocol: Activity Type Activity Date Activity User E-sign Co-sign Detail Recorded Client Recorded Date Recorded By Document 02/20/22 10:49 [facility] [id number] 02/20/22 11:01 [facility] Document 02/27/22 11:08 MW [id number] 02/27/22 11:18 MW 02/20/22 02/27/22 10:49 11:08 Wound Center Nurse 1 #6- L MEDIAL FOOT -Combined with other wound No No -Current Size (cm) - Length 2.5 2.5 -Current Size (cm) - Width 2.4 2.3 -Current Size (cm) - Depth 0.6 0.1 -Total Square Cm 6.00 5.75 -Date of Last Picture (Recall this 02/20/22 02/27/22 field) -Photo Taken Yes Yes -Epithelialization Small 1-33% Small 1-33% -Tunneling No No -Undermining/Tunneling No No -Circular Undermining No No -Exudate Amt Medium Small -Exudate Type Serosanguineous Serosanguineous -Wound Margin Distinct, Flat & Intact Outline Attached -Granulation Amt Large (67-100%) Large (67-100%) -Granulation Quality Hyper- Avenel granulation, Pale,Red -Slough/Fibrin Yes Yes -Necrosis Amt Small (1-33%) Small (1-33%) -Necrotic Tissue Type Adherent Slough Adherent Slough -Texture (Bernadette-wound Skin Appearance) Assessed, Assessed, Scarring Localized Edema ,Scarring -Moisture (Bernadette-wound Skin Appearance) Assessed Assessed, Maceration -Color (Bernadette-wound Skin Appearance) Assessed No Abnormality, Assessed -Temperature (Bernadette-wound Skin No Abnormality No Abnormality Appearance) (Pt Warm) (Pt Warm) -Tenderness on Palpation (Bernadette-wound No No Skin Appearance) -Ulcer Cleansing Soap and Water Soap and Water -Foul Odor after Cleansing No No -Anesthetic Used 5% Lidocaine 5% Lidocaine Gel Gel #4- L PLANTAR FOOT -Combined with other wound No No -Current Size (cm) - Length 0.5 0.1 -Current Size (cm) - Width 0.4 0.1 -Current Size (cm) - Depth 0.2 0.1 -Total Square Cm 0.20 0.01 -Date of Last Picture (Recall this 02/20/22 field) -Photo Taken Yes No -Epithelialization None Present None Present -Tunneling No No -Undermining/Tunneling No No -Circular Undermining No No -Exudate Amt Small None Present -Exudate Type Serous -Wound Margin Distinct, Outline Attached -Granulation Amt Large (67-100%) None Present (0 %) -Granulation Quality Avenel N/A -Slough/Fibrin No Yes -Necrosis Amt None Present (0 Small (1-33%) %) -Necrotic Tissue Type Adherent Slough -Texture (Bernadette-wound Skin Appearance) Assessed, Assessed, Scarring Localized Edema ,Scarring -Moisture (Bernadette-wound Skin Appearance) Assessed,Dry/ Assessed,Dry/ Scaly Scaly -Color (Bernadette-wound Skin Appearance) Assessed Assessed -Temperature (Bernadette-wound Skin No Abnormality No Abnormality Appearance) (Pt Warm) (Pt Warm) -Tenderness on Palpation (Bernadette-wound No Skin Appearance) -Ulcer Cleansing Soap and Water Soap and Water -Foul Odor after Cleansing No No -Anesthetic Used 5% Lidocaine 5% Lidocaine Gel Gel Lower Limb Edema Present No WC - Nurse 2 - General Ulcer CM Notes Start: 02/20/22 10:49 Freq: Status: Active Protocol: Activity Type Activity Date Activity User E-sign Co-sign Detail Recorded Client Recorded Date Recorded By Document 02/20/22 11:09 ORESTES [id number] 02/20/22 11:16 ORESTES 02/20/22 11:09 Wound Center Nurse 2 #6- L MEDIAL FOOT -Time 11:09 -Correct Patient Yes -Correct Side, Site, Position Yes -Correct Procedure Yes -Procedure Performed Yes -Type of Procedure Debridement -Clinical Debridement Subcutaneous -Tissue Removed Subcutaneous -Post Debridement (cm) - Length 2.5 -Post Debridement (cm) - Width 2.5 -Post Debridement (cm) - Depth 0.6 -Total Square (Post) (cm) 6.25 -Area of Debridement (cm) - Length 2.5 -Area of Debridement (cm) - Width 2.5 -Total Square (Area) (cm) 6.25 -Tunneling No -Undermining/Tunneling No -Circular Undermining No -Wound/Ulcer Outcome Not Healed -Ulcer Cleansing Rinsed/ Irrigated with Saline -Foul Odor after Cleansing No -Bioengineered Tissue Yes -Type of Bioengineered Tissue Epifix Mesh -Expiration Date 12/16/26 -Product Lot Number [id number] -Percent Used 100 -Lot number of Saline Used [id number] -Bleeding Controlled with Pressure -Treatment Response Procedure Tolerated Well -Offloading Yes -Type of Offloading Surgical Shoe -Debridement - Subq, 1st 20sq cm No -Apply Skin Sub - 1st 25 sq cm - Feet 1 -Epifix Mesh (per sq cm) 11 #4- L PLANTAR FOOT -Time 11:15 -Correct Patient Yes -Correct Side, Site, Position Yes -Correct Procedure Yes -Procedure Performed Yes -Type of Procedure Debridement -Clinical Debridement Subcutaneous -Tissue Removed Subcutaneous -Post Debridement (cm) - Length 0.5 -Post Debridement (cm) - Width 0.4 -Post Debridement (cm) - Depth 0.1 -Total Square (Post) (cm) 0.20 -Area of Debridement (cm) - Length 0.5 -Area of Debridement (cm) - Width 0.4 -Total Square (Area) (cm) 0.20 -Tunneling No -Undermining/Tunneling No -Circular Undermining No -Wound/Ulcer Outcome Not Healed -Ulcer Cleansing Rinsed/ Irrigated with Saline -Foul Odor after Cleansing No -Bioengineered Tissue No -Bleeding Controlled with Pressure -Treatment Response Procedure Tolerated Well -Offloading Yes -Type of Offloading Surgical Shoe -Assistive Device(s) Wheelchair -Debridement - Subq, 1st 20sq cm Yes Pain Scale: 0-10 Numeric Is Patient Pain Free? Yes Assessment/Plan Assessment/Plan (1) Peripheral vascular disease, unspecified: CODE(S): I73.9 - Peripheral vascular disease, unspecified (2) Type 2 diabetes mellitus with diabetic polyneuropathy: CODE(S): E11.42 - Type 2 diabetes mellitus with diabetic polyneuropathy (3) Chronic diabetic ulcer of left foot determined by examination: CODE(S): E11.621 - Type 2 diabetes mellitus with foot ulcer; L97.529 - N on-pressure chronic ulcer of other part of left foot with unspecified severity PLAN: Patient examined evaluated, all findings discussed with patient in detail. Wounds to left foot are improving at this time. dorsal lateral foot wound improving. Plantar midfoot wound improving. Increased granulation around medial first MPJ and fibrous and subcutaneous tissue was debrided today. Patient is following with vascular surgery as an outpatient. Patient has healthy bleeding upon debridement suggestive of good wound healing potential. Blood thinner use noted. no infection today. The left first metatarsal phalangeal joint wound, dorsal lateral foot wound and plantar midfoot wounds were debrided down to including level of capsule and tendon of all nonviable tissue without incident. This was performed using 15 blade scalpel and forceps. Hemostasis obtained with light compression. Patient tolerated procedure well. No anesthesia due to neuropathy. Pre and postdebridement measurements documented in nursing notes. He was approved for application of advanced wound healing product and epi cord was applied according to standard protocol after verbal consent was obtained. This was applied to the medial first MPJ site in which insurance approval was obtained for. 100% of the product was utilized (epifix 4x4 11 billing unit graft). This was further secured in place with a wound veil and Steri-Strips. A secondary dressing was applied and he will keep this clean, dry, and intact until follow-up next week. The indications, benefits, application series, and anticipated healing time was reviewed. Patient will perform daily cleansing of his foot with dressing changes consisting of Dakin's DSD no compression to non epicord application site (s). Patient will maintain heel weightbearing status in cam walking boot assisted with a walker patient has a walker at home. Patient will follow up in 1 week. Patient is high risk for proximal amputation and understands this.
[2022-03-08 10:50] VITALS: BP 120/70; PULSE 85; RESP 18; TEMP 36.1; BMI 23.8
--- NOTE | 2022-03-08 11:12 | PCM.WC.PN ---
History of Present Illness Date of Service: 03/08/22 Chief Complaint: Left foot ulcers x 3 History of Wound: This 61-year-old male seen in the wound care center for chronic left foot ulcerations secondary to peripheral arterial disease and amputations. Patient recently underwent quadruple bypass surgery successfully at [facility]. Patient has stent placed in popliteal artery due to popliteal occlusion and left lower extremity on the hospital previously. Subsequently the next day patient had a wound debridement with amputation of the fourth ray left open with vessel loop closure to the dorsal midfoot and wet-to-dry dressings to the plantar midfoot and medial first metatarsophalangeal joints. At this time he denies any constitutional symptoms, chest pain, calf pain, or shortness of breath. Patient received 6 weeks IV antibiotics at [facility]. He is amendable to proceed with advanced wound healing product application today if it has been approved by the insurance. Subjective Subjective Patient is a 61-year-old male who follows up to the wound care center today for ulceration to the medial aspect of the first metatarsal head of the left foot. Patient follows with Dr. Watters who has been applying epi fix graft to the wound bed. Patient denies any constitutional symptoms today. He has no further complaints today. Objective Data Objective Data Vital Signs: Vital Signs Temp Pulse Resp BP O2 Del Method 97 F L 85 18 120/70 Room Air 03/08/22 10:50 03/08/22 10:50 03/08/22 10:50 03/08/22 10:50 03/08/22 10:50 Oxygen Delivery Method Room Air Weight: 77.564 kg Body Mass Index (BMI) 23.8 Physical Exam Narrative Improve vascularity left lower extremity. Dermatologic: Partial third and fourth ray resection sites with with wound demonstrates granular natured base, decrease in size. Plantar midfoot wound - healed. Medial first metatarsal phalangeal joint wound is down to level of capsule there is a bleeding granular wound edge but the base of the wound improving and granulating in nature. Adjacent skin is hairless and atrophic. There is no visualized or palpable bone. New wound to dorsal second digit. All other wounds improving at this time. Wound to second digit at apex of hammertoe formation on the left foot. Demonstrates granular base no signs of infection deep probing or undermining. Musculoskeletal: Partial amputation to left third and fourth ray. Muscular strength 5 out of 5 to bilateral lower extremity compartments No pain with calf squeeze bilateral lower extremities. Debridement Note Debridement Note Wound debrided: Medial first metatarsal head Laterality: Left Wound Grade/Stage: Lott stage 2 Type of Debridement: Excisional debridement Anesthesia Used: 5% Lidocaine Gel Depth: Down to and including healthy tissue and in the subcutaneous layer Percentage of wound debrided: 100 Instrument Used: 3mm curette Tissue Removed: Fibrous, devitalized subcutaneous, biofilm, slough Severity: Fat Layer Exposed Amount of bleeding with debridement: Mild Bleeding Controlled with: Compression and gauze Patient tolerated procedure: Patient tolerated procedure well Post-Debridement Measurements and Additional Note: Post-Debridement Measurements/Treatment - Nurse 1 - General Ulcer Assessment Start: 02/20/22 10:49 Freq: Status: Active Protocol: MONICA Activity Type Activity Date Activity User E-sign Co-sign Detail Recorded Client Recorded Date Recorded By Document 02/20/22 10:49 [facility] [id number] 02/20/22 11:01 [facility] Document 02/27/22 11:08 MW [id number] 02/27/22 11:18 MW Document 03/08/22 10:50 MT [id number] 03/08/22 10:58 MT 02/20/22 02/27/22 03/08/22 10:49 11:08 10:50 - Today's Visit Information Type of service Follow-up Visit Follow-up Visit Follow-up Visit (Physician/CRYOGENICS ENGINEER (Physician/CRYOGENICS ENGINEER (Physician/CRYOGENICS ENGINEER ) ) ) Arrival Mode Wheelchair Wheelchair Ambulatory Transfer Assistance None None Accompanied by self self Patient Identification Verified (Name & Yes Yes Yes ) Patient Requires Transmission-Based No No Precautions Safety Precautions NA Fall Prevention Height and Weight Body Mass Index (BMI) 23.8 23.8 23.8 BMI Classification Normal Normal Normal Vital Signs Temperature (97.8 F-99.1 F) 96.8 F L 96.3 F L 97 F L Temperature Source Temporal Temporal Temporal Pulse Rate (60-100) 96 90 85 Pulse Location Monitor Monitor Monitor Respiratory Rate (12-18) 16 18 18 Respiratory rate source Observation Observation Observation Oxygen Delivery Method Room Air Room Air Room Air Blood Pressure (90/60-120/80) 122/71 H 122/71 H 120/70 Blood Pressure Mean (mm Hg) 88 88 86 Source Monitor Monitor Monitor Position Sitting Sitting Sitting Blood Pressure Location Left Arm Left Arm Left Arm History Since Last Visit- (Skip if this is Patient's initial visit) Have you changed medications since your No No last visit? Any new allergies or adverse reactions No No Had a fall/change in ADL's that may No No increase risk of falls Signs or symptoms of abuse and/or No No neglect since last visit Have you been in the hospital since your No No No last visit? Has dressing in place as prescribed No Yes Yes Has compression in place as prescribed N/A Yes Yes Has offloadiing in place as prescribed N/A N/A Yes Experienced any changes in pain level or No No Yes management Left Footwear Surgical Shoe Surgical Shoe Diabetic Shoe with pressure with pressure relief insole relief insole Right Footwear Regular Shoe Regular Shoe Pain Scale: 0-10 Numeric Is Patient Pain Free? Yes Yes Yes WC - Nurse 1 - General Ulcer Measurement Start: 02/20/22 10:49 Freq: Status: Active Protocol: Activity Type Activity Date Activity User E-sign Co-sign Detail Recorded Client Recorded Date Recorded By Document 02/20/22 10:49 [facility] [id number] 02/20/22 11:01 [facility] Document 02/27/22 11:08 MW [id number] 02/27/22 11:18 MW Document 03/08/22 10:50 MT [id number] 03/08/22 10:58 MT 02/20/22 02/27/22 03/08/22 10:49 11:08 10:50 Wound Center Nurse 1 #4- L PLANTAR FOOT -Combined with other wound No No -Current Size (cm) - Length 0.5 0.1 -Current Size (cm) - Width 0.4 0.1 -Current Size (cm) - Depth 0.2 0.1 -Total Square Cm 0.20 0.01 -Date of Last Picture (Recall this 02/20/22 field) -Photo Taken Yes No -Epithelialization None Present None Present -Tunneling No No -Undermining/Tunneling No No -Circular Undermining No No -Exudate Amt Small None Present -Exudate Type Serous -Wound Margin Distinct, Outline Attached -Granulation Amt Large (67-100%) None Present (0 %) -Granulation Quality [place] N/A -Slough/Fibrin No Yes -Necrosis Amt None Present (0 Small (1-33%) %) -Necrotic Tissue Type Adherent Slough -Texture (Bernadette-wound Skin Appearance) Assessed, Assessed, Scarring Localized Edema ,Scarring -Moisture (Bernadette-wound Skin Appearance) Assessed,Dry/ Assessed,Dry/ Scaly Scaly -Color (Bernadette-wound Skin Appearance) Assessed Assessed -Temperature (Bernadette-wound Skin No Abnormality No Abnormality Appearance) (Pt Warm) (Pt Warm) -Tenderness on Palpation (Bernadette-wound No Skin Appearance) -Ulcer Cleansing Soap and Water Soap and Water -Foul Odor after Cleansing No No -Anesthetic Used 5% Lidocaine 5% Lidocaine Gel Gel #6- L MEDIAL FOOT -Combined with other wound No No -Current Size (cm) - Length 2.5 2.5 2.8 -Current Size (cm) - Width 2.4 2.3 1.5 -Current Size (cm) - Depth 0.6 0.1 0.2 -Total Square Cm 6.00 5.75 4.20 -Date of Last Picture (Recall this 02/20/22 02/27/22 field) -Photo Taken Yes Yes -Epithelialization Small 1-33% Small 1-33% -Tunneling No No -Undermining/Tunneling No No Yes -Undermining/Tunneling Starts (O'clock 3 ) -Undermining/Tunneling Ends (O'clock) 9 -Maximum Distance (cm) 1 -Circular Undermining No No -Exudate Amt Medium Small Small -Exudate Type Serosanguineous Serosanguineous Serosanguineous -Wound Margin Distinct, Flat & Intact Well Defined, Outline Not Attached Attached -Granulation Amt Large (67-100%) Large (67-100%) Medium (34-66%) -Granulation Quality Hyper- [place] Pale,[place] granulation, Pale,Red -Slough/Fibrin Yes Yes -Necrosis Amt Small (1-33%) Small (1-33%) Medium (34-66%) -Necrotic Tissue Type Adherent Slough Adherent Slough Adherent Slough -Texture (Bernadette-wound Skin Appearance) Assessed, Assessed, Assessed Scarring Localized Edema ,Scarring -Moisture (Bernadette-wound Skin Appearance) Assessed Assessed, Assessed Maceration -Color (Bernadette-wound Skin Appearance) Assessed No Abnormality, Assessed Assessed -Temperature (Bernadette-wound Skin No Abnormality No Abnormality No Abnormality Appearance) (Pt Warm) (Pt Warm) (Pt Warm) -Tenderness on Palpation (Bernadette-wound No No No Skin Appearance) -Ulcer Cleansing Soap and Water Soap and Water Soap and Water -Foul Odor after Cleansing No No No -Anesthetic Used 5% Lidocaine 5% Lidocaine 5% Lidocaine Gel Gel Gel Lower Limb Edema Present No NA WC - Nurse 2 - General Ulcer CM Notes Start: 02/20/22 10:49 Freq: Status: Active Protocol: Activity Type Activity Date Activity User E-sign Co-sign Detail Recorded Client Recorded Date Recorded By Document 02/20/22 11:09 [id number] 02/20/22 11:16 Document 02/27/22 11:26 [id number] 02/27/22 11:34 02/20/22 02/27/22 11:09 11:26 Wound Center Nurse 2 #4- L PLANTAR FOOT -Time 11:15 -Correct Patient Yes No -Correct Side, Site, Position Yes No -Correct Procedure Yes No -Procedure Performed Yes No -Type of Procedure Debridement -Clinical Debridement Subcutaneous -Tissue Removed Subcutaneous -Post Debridement (cm) - Length 0.5 0 -Post Debridement (cm) - Width 0.4 0 -Post Debridement (cm) - Depth 0.1 0 -Total Square (Post) (cm) 0.20 0 -Area of Debridement (cm) - Length 0.5 0 -Area of Debridement (cm) - Width 0.4 0 -Total Square (Area) (cm) 0.20 0 -Tunneling No -Undermining/Tunneling No -Circular Undermining No -Wound/Ulcer Outcome Not Healed Healed- Epithelialized -Ulcer Cleansing Rinsed/ Irrigated with Saline -Foul Odor after Cleansing No -Bioengineered Tissue No -Bleeding Controlled with Pressure -Treatment Response Procedure Tolerated Well -Offloading Yes -Type of Offloading Surgical Shoe -Assistive Device(s) Wheelchair -Debridement - Subq, 1st 20sq cm Yes #6- L MEDIAL FOOT -Time 11:09 11:27 -Correct Patient Yes Yes -Correct Side, Site, Position Yes Yes -Correct Procedure Yes Yes -Procedure Performed Yes Yes -Type of Procedure Debridement Debridement -Clinical Debridement Subcutaneous Subcutaneous -Tissue Removed Subcutaneous Subcutaneous -Post Debridement (cm) - Length 2.5 2.6 -Post Debridement (cm) - Width 2.5 2.4 -Post Debridement (cm) - Depth 0.6 0.1 -Total Square (Post) (cm) 6.25 6.24 -Area of Debridement (cm) - Length 2.5 2.6 -Area of Debridement (cm) - Width 2.5 2.4 -Total Square (Area) (cm) 6.25 6.24 -Tunneling No No -Undermining/Tunneling No No -Circular Undermining No No -Wound/Ulcer Outcome Not Healed Not Healed -Ulcer Cleansing Rinsed/ Rinsed/ Irrigated with Irrigated with Saline Saline -Foul Odor after Cleansing No No -Bioengineered Tissue Yes Yes -Type of Bioengineered Tissue Epifix Mesh Epifix Mesh -Expiration Date 12/16/26 12/16/26 -Product Lot Number [id number] -Percent Used 100 100 -Lot number of Saline Used [id number] -Bleeding Controlled with Pressure Pressure -Treatment Response Procedure Procedure Tolerated Well Tolerated Well -Offloading Yes Yes -Type of Offloading Surgical Shoe Surgical Shoe -Debridement - Subq, 1st 20sq cm No No -Apply Skin Sub - 1st 25 sq cm - Feet 1 1 -Epifix Mesh (per sq cm) 11 11 Pain Scale: 0-10 Numeric Is Patient Pain Free? Yes Yes - Nurse 3 - General Ulcer D/C NN Start: 02/20/22 10:49 Freq: Status: Active Protocol: Activity Type Activity Date Activity User E-sign Co-sign Detail Recorded Client Recorded Date Recorded By Document 02/27/22 11:41 [facility] [id number] 02/27/22 11:43 [facility] 02/27/22 11:41 Wound Care Nurse 3 #6- L MEDIAL FOOT -Other Dressing EPIMESH -Primary Dressing Covered/Secured with Dry Gauze & Roll Gauze, Secured with Tape -Other Covering ABD Left -Other RICHELLE TO SECURE Treatment Response Procedure Tolerated Well Pain Scale: 0-10 Numeric Is Patient Pain Free? Yes - Visit Discharge Discharge Condition Stable Ambulatory Status Ambulatory, Wheelchair Assessment/Plan Assessment/Plan (1) Peripheral vascular disease, unspecified: CODE(S): I73.9 - Peripheral vascular disease, unspecified (2) Type 2 diabetes mellitus with diabetic polyneuropathy: CODE(S): E11.42 - Type 2 diabetes mellitus with diabetic polyneuropathy (3) Chronic diabetic ulcer of left foot determined by examination: CODE(S): E11.621 - Type 2 diabetes mellitus with foot ulcer; L97.529 - Non-pressure chronic ulcer of other part of left foot with unspecified severity PLAN: Patient examined evaluated, all findings discussed with patient in detail. Wounds to left foot are improving at this time. dorsal lateral foot wound improving. Plantar midfoot wound improving. Increased granulation around medial first MPJ and fibrous and subcutaneous tissue was debrided today. Patient is following with vascular surgery as an outpatient. Patient has healthy bleeding upon debridement suggestive of good wound healing potential. Blood thinner use noted. no infection today. The left first metatarsal phalangeal joint wound, dorsal lateral foot wound and plantar midfoot wounds were debrided down to including level of capsule and tendon of all nonviable tissue without incident. This was performed using 15 blade scalpel and forceps. Hemostasis obtained with light compression. Patient tolerated procedure well. No anesthesia due to neuropathy. Pre and postdebridement measurements documented in nursing notes. He was approved for application of advanced wound healing product and epi cord was applied according to standard protocol after verbal consent was obtained. This was applied to the medial first MPJ site in which insurance approval was obtained for. 100% of the product was utilized (epifix 4x4 11 billing unit graft). This was further secured in place with a wound veil and Steri-Strips. A secondary dressing was applied and he will keep this clean, dry, and intact until follow-up next week. The indications, benefits, application series, and anticipated healing time was reviewed. Patient will perform daily cleansing of his foot with dressing changes consisting of Dakin's DSD no compression to non epicord application site (s). Patient will maintain heel weightbearing status in cam walking boot assisted with a walker patient has a walker at home. Patient will follow up in 1 week. Patient is high risk for proximal amputation and understands this.
== END 2022-03-17 23:59 | disposition home or self-care (01) ==
LOC: WC 10:45
PROVIDERS: PCP Student in an Organized Health Care Education/Training Program; Visit Provider Podiatrist
DX: E11.621 Type 2 diabetes mellitus with foot ulcer (principal); E11.51 Type 2 diabetes mellitus with diabetic peripheral angiopathy without gangrene; L97.522 Non-pressure chronic ulcer of other part of left foot with fat layer exposed; E11.42 Type 2 diabetes mellitus with diabetic polyneuropathy; I73.9 Peripheral vascular disease, unspecified
CPT/HCPCS: 11042; 15275; Q4186

== ENCOUNTER 2022-04-03 10:15 | Outpatient (RCR) | payer OTHER, SELFPAY ==
[2022-03-18 00:21] VITALS: BP 120/70; PULSE 85; RESP 18; TEMP 36.1; BMI 23.8
[2022-03-20 10:31] VITALS: BP 127/79; PULSE 97; RESP 16; TEMP 36.2; BMI 23.8
--- NOTE | 2022-03-20 10:51 | PN.PCM_ITS ---
History of Present Illness Date of Service: 03/20/22 Chief Complaint: Left foot ulcers x 3 History of Wound: This 61-year-old male seen in the wound care center for chronic left foot ulcerations secondary to peripheral arterial disease and amputations. Patient recently underwent quadruple bypass surgery successfully at [facility]. Patient has stent placed in popliteal artery due to popliteal occlusion and left lower extremity on the hospital previously. Subsequently the next day patient had a wound debridement with amputation of the fourth ray left open with vessel loop closure to the dorsal midfoot and wet-to-dry dressings to the plantar midfoot and medial first metatarsophalangeal joints. At this time he denies any constitutional symptoms, chest pain, calf pain, or shortness of breath. Patient received 6 weeks IV antibiotics at [facility]. He is amendable to proceed with advanced wound healing product application today if it has been approved by the insurance. Objective Data Objective Data Vital Signs: Vital Signs Temp Pulse Resp BP O2 Del Method 97.2 F L 97 16 127/79 H Room Air 03/20/22 10:31 03/20/22 10:31 03/20/22 10:31 03/20/22 10:31 03/20/22 10:31 Oxygen Delivery Method Room Air Weight: 77.564 kg Body Mass Index (BMI) 23.8 Physical Exam Narrative Improve vascularity left lower extremity. Dermatologic: Partial third and fourth ray resection sites with with wound demonstrates granular natured base, decrease in size. Plantar midfoot wound - healed. Medial first metatarsal phalangeal joint wound is down to level of capsule there is a bleeding granular wound edge but the base of the wound improving and granulating in nature. Adjacent skin is hairless and atrophic. There is no visualized or palpable bone. New wound to dorsal second digit. All other wounds improving at this time. Wound to second digit at apex of hammertoe formation on the left foot. Demonstrates granular base no signs of infection deep probing or undermining. Musculoskeletal: Partial amputation to left third and fourth ray. Muscular strength 5 out of 5 to bilateral lower extremity compartments No pain with calf squeeze bilateral lower extremities. Debridement Note Debridement Note Post-Debridement Measurements and Additional Note: Post-Debridement Measurements/Treatment ROYCE - Nurse 1 - General Ulcer Assessment Start: 03/20/22 10:30 Freq: Status: Active Protocol: LOWEXT Activity Type Activity Date Activity User E-sign Co-sign Detail Recorded Client Recorded Date Recorded By Document 03/20/22 10:31 DL [id number] 03/20/22 10:36 DL 03/20/22 10:31 WC - Today's Visit Information Type of service Follow-up Visit (Physician/CUSHION FILLER ) Arrival Mode Wheelchair Transfer Assistance None Patient Identification Verified (Name & Yes ) Patient Requires Transmission-Based No Precautions Height and Weight Body Mass Index (BMI) 23.8 BMI Classification Normal Vital Signs Temperature (97.8 F-99.1 F) 97.2 F L Temperature Source Temporal Pulse Rate (60-100) 97 Pulse Location Monitor Respiratory Rate (12-18) 16 Respiratory rate source Observation Oxygen Delivery Method Room Air Blood Pressure (90/60-120/80) 127/79 H Blood Pressure Mean (mm Hg) 95 Source Monitor Position Sitting Blood Pressure Location Left Arm History Since Last Visit- (Skip if this is Patient's initial visit) Have you changed medications since your No last visit? Any new allergies or adverse reactions No Had a fall/change in ADL's that may No increase risk of falls Signs or symptoms of abuse and/or No neglect since last visit Have you been in the hospital since your No last visit? Has dressing in place as prescribed Yes Has compression in place as prescribed Yes Has offloadiing in place as prescribed Yes Experienced any changes in pain level or No management Left Footwear Surgical Shoe with pressure relief insole Right Footwear Regular Shoe Pain Scale: 0-10 Numeric Is Patient Pain Free? Yes - Nurse 1 - General Ulcer Measurement Start: 03/20/22 10:30 Freq: Status: Active Protocol: Activity Type Activity Date Activity User E-sign Co-sign Detail Recorded Client Recorded Date Recorded By Document 03/20/22 10:31 DL [id number] 03/20/22 10:36 DL 03/20/22 10:31 Wound Center Nurse 1 #6- L MEDIAL FOOT -Combined with other wound No -Current Size (cm) - Length 1.8 -Current Size (cm) - Width 2 -Current Size (cm) - Depth 0.7 -Total Square Cm 3.6 -Date of Last Picture (Recall this 03/20/22 field) -Photo Taken Yes -Epithelialization Small 1-33% -Tunneling No -Undermining/Tunneling Yes -Undermining/Tunneling Starts (O'clock 1 ) -Undermining/Tunneling Ends (O'clock) 6 -Maximum Distance (cm) 0.3 -Circular Undermining No -Exudate Amt Medium -Exudate Type Serosanguineous -Wound Margin Distinct, Outline Attached -Granulation Amt Large (67-100%) -Granulation Quality [place] -Slough/Fibrin Yes -Necrosis Amt Small (1-33%) -Necrotic Tissue Type Adherent Slough -Structure Exposed Bone -Texture (Bernadette-wound Skin Appearance) Assessed, Scarring -Moisture (Bernadette-wound Skin Appearance) Assessed, Maceration -Color (Bernadette-wound Skin Appearance) Assessed -Temperature (Bernadette-wound Skin No Abnormality Appearance) (Pt Warm) -Tenderness on Palpation (Bernadette-wound No Skin Appearance) -Ulcer Cleansing Soap and Water -Foul Odor after Cleansing No -Anesthetic Used 5% Lidocaine Gel WC - Nurse 2 - General Ulcer CM Notes Start: 03/20/22 10:30 Freq: Status: Active Protocol: Activity Type Activity Date Activity User E-sign Co-sign Detail Recorded Client Recorded Date Recorded By Document 03/20/22 10:43 ORESTES [id number] 03/20/22 10:47 ORESTES Edit Result 03/20/22 10:43 ORESTES (1) [id number] 03/20/22 10:51 ORESTES (1) #6- L MEDIAL FOOT - Clinical Debridement Subcutaneous => Muscle / Fascia - Tissue Removed Subcutaneous => Muscle,Fascia - Debridement - Subq, 1st 20sq cm No => - Debridement - Muscle / Fascia, 1st => No 20sq cm 03/20/22 10:43 Wound Center Nurse 2 -Time 10:43 -Correct Patient Yes -Correct Side, Site, Position Yes -Correct Procedure Yes -Procedure Performed Yes -Type of Procedure Debridement -Clinical Debridement Muscle / Fascia -Tissue Removed Muscle,Fascia -Post Debridement (cm) - Length 1.8 -Post Debridement (cm) - Width 2.1 -Post Debridement (cm) - Depth 0.8 -Total Square (Post) (cm) 3.78 -Area of Debridement (cm) - Length 1.8 -Area of Debridement (cm) - Width 2.1 -Total Square (Area) (cm) 3.78 -Tunneling No -Undermining/Tunneling No -Circular Undermining No -Wound/Ulcer Outcome Not Healed -Ulcer Cleansing Rinsed/ Irrigated with Saline -Foul Odor after Cleansing No -Bioengineered Tissue Yes -Type of Bioengineered Tissue Epifix -Expiration Date 10/16/26 -Product Lot Number [id number] -Percent Used 100 -Lot number of Saline Used [id number] -Bleeding Controlled with Pressure -Treatment Response Procedure Tolerated Well -Offloading Yes -Type of Offloading Surgical Shoe -Debridement - Muscle / Fascia, 1st No 20sq cm -Apply Skin Sub - 1st 25 sq cm - Feet 1 -Epifix (per sq cm) 4 Pain Scale: 0-10 Numeric Is Patient Pain Free? Yes Assessment/Plan Assessment/Plan (1) Peripheral vascular disease, unspecified: CODE(S): I73.9 - Peripheral vascular disease, unspecified (2) Type 2 diabetes mellitus with diabetic polyneuropathy: CODE(S): E11.42 - Type 2 diabetes mellitus with diabetic polyneuropathy (3) Chronic diabetic ulcer of left foot determined by examination: CODE(S): E11.621 - Type 2 diabetes mellitus with foot ulcer; L97.529 - Non-pressure chronic ulcer of other part of left foot with unspecified severity PLAN: Patient examined evaluated, all findings discussed with patient in detail. Wounds to left foot are improving at this time. dorsal lateral foot wound improving. Plantar midfoot wound improving. Increased granulation around medial first MPJ and fibrous and subcutaneous tissue was debrided today. Patient is following with vascular surgery as an outpatient. Patient has h ealthy bleeding upon debridement suggestive of good wound healing potential. Blood thinner use noted. no infection today. The left first metatarsal phalangeal joint wound, dorsal lateral foot wound and plantar midfoot wounds were debrided down to including level of capsule and tendon of all nonviable tissue without incident. This was performed using 15 blade scalpel and forceps. Hemostasis obtained with light compression. Patient tolerated procedure well. No anesthesia due to neuropathy. Pre and postdebridement measurements documented in nursing notes. He was approved for application of advanced wound healing product and epi cord was applied according to standard protocol after verbal consent was obtained. This was applied to the medial first MPJ site in which insurance approval was obtained for. 100% of the product was utilized (epifix 4x4 11 billing unit graft). This was further secured in place with a wound veil and Steri-Strips. A secondary dressing was applied and he will keep this clean, dry, and intact until follow-up next week. The indications, benefits, application series, and anticipated healing time was reviewed. Patient will perform daily cleansing of his foot with dressing changes consisting of Dakin's DSD no compression to non epicord application site (s). Patient will maintain heel weightbearing status in cam walking boot assisted with a walker patient has a walker at home. Patient will follow up in 1 week. Patient is high risk for proximal amputation and understands this.
[2022-03-27 10:23] VITALS: BP 112/73; PULSE 82; RESP 16; TEMP 35.3; BMI 23.8
--- NOTE | 2022-03-27 11:14 | PN.PCM_ITS ---
History of Present Illness Date of Service: 03/27/22 Chief Complaint: Left foot ulcers x 3 History of Wound: This 61-year-old male seen in the wound care center for chronic left foot ulcerations secondary to peripheral arterial disease and amputations. Patient recently underwent quadruple bypass surgery successfully at [facility]. Patient has stent placed in popliteal artery due to popliteal occlusion and left lower extremity on the hospital previously. Subsequently the next day patient had a wound debridement with amputation of the fourth ray left open with vessel loop closure to the dorsal midfoot and wet-to-dry dressings to the plantar midfoot and medial first metatarsophalangeal joints. At this time he denies any constitutional symptoms, chest pain, calf pain, or shortness of breath. Patient received 6 weeks IV antibiotics at [facility]. He is amendable to proceed with advanced wound healing product application today if it has been approved by the insurance. Objective Data Objective Data Vital Signs: Vital Signs Temp Pulse Resp BP O2 Del Method 95.6 F L 82 16 112/73 Room Air 03/27/22 10:23 03/27/22 10:23 03/27/22 10:23 03/27/22 10:23 03/27/22 10:23 Oxygen Delivery Method Room Air Weight: 77.564 kg Body Mass Index (BMI) 23.8 Physical Exam Narrative Improve vascularity left lower extremity. Dermatologic: Partial third and fourth ray resection sites with with wound demonstrates granular natured base, decrease in size. Plantar midfoot wound - healed. Medial first metatarsal phalangeal joint wound is down to level of capsule there is a bleeding granular wound edge but the base of the wound improving and granulating in nature. Adjacent skin is hairless and atrophic. There is no visualized or palpable bone. New wound to dorsal second digit. All other wounds improving at this time. Wound to second digit at apex of hammertoe formation on the left foot. Demonstrates granular base no signs of infection deep probing or undermining. Musculoskeletal: Partial amputation to left third and fourth ray. Muscular strength 5 out of 5 to bilateral lower extremity compartments No pain with calf squeeze bilateral lower extremities. Debridement Note Debridement Note Post-Debridement Measurements and Additional Note: Post-Debridement Measurements/Treatment ROYCE - Nurse 1 - General Ulcer Assessment Start: 03/20/22 10:30 Freq: Status: Active Protocol: ROYCE.LOWEXT Activity Type Activity Date Activity User E-sign Co-sign Detail Recorded Client Recorded Date Recorded By Document 03/20/22 10:31 [id number] 03/20/22 10:36 DL Document 03/27/22 10:23 [facility] [id number] 03/27/22 10:29 BM 03/20/22 03/27/22 10:31 10:23 - Today's Visit Information Type of service Follow-up Visit Follow-up Visit (Physician/CHALK MACHINE OPERATOR (Physician/CHALK MACHINE OPERATOR ) ) Arrival Mode Wheelchair Wheelchair Transfer Assistance None None Patient Identification Verified (Name & Yes Yes ) Patient Requires Transmission-Based No No Precautions Height and Weight Body Mass Index (BMI) 23.8 23.8 BMI Classification Normal Normal Vital Signs Temperature (97.8 F-99.1 F) 97.2 F L 95.6 F L Temperature Source Temporal Temporal Pulse Rate (60-100) 97 82 Pulse Location Monitor Monitor Respiratory Rate (12-18) 16 16 Respiratory rate source Observation Observation Oxygen Delivery Method Room Air Room Air Blood Pressure (90/60-120/80) 127/79 H 112/73 Blood Pressure Mean (mm Hg) 95 86 Source Monitor Monitor Position Sitting Sitting Blood Pressure Location Left Arm Left Arm History Since Last Visit- (Skip if this is Patient's initial visit) Have you changed medications since your No No last visit? Any new allergies or adverse reactions No No Had a fall/change in ADL's that may No No increase risk of falls Signs or symptoms of abuse and/or No No neglect since last visit Have you been in the hospital since your No No last visit? Has dressing in place as prescribed Yes Yes Has compression in place as prescribed Yes N/A Has offloadiing in place as prescribed Yes Yes Experienced any changes in pain level or No No management Left Footwear Surgical Shoe Surgical Shoe with pressure with pressure relief insole relief insole Right Footwear Regular Shoe Regular Shoe Pain Scale: 0-10 Numeric Is Patient Pain Free? Yes Yes - Nurse 1 - General Ulcer Measurement Start: 03/20/22 10:30 Freq: Status: Active Protocol: Activity Type Activity Date Activity User E-sign Co-sign Detail Recorded Client Recorded Date Recorded By Document 03/20/22 10:31 [id number] 01/03/23 10:36 DL Document 03/27/22 10:23 [facility] [id number] 03/27/22 10:29 BMF 03/20/22 03/27/22 10:31 10:23 Wound Center Nurse 1 #6- L MEDIAL FOOT -Combined with other wound No No -Current Size (cm) - Length 1.8 1.8 -Current Size (cm) - Width 2 1.8 -Current Size (cm) - Depth 0.7 0.7 -Total Square Cm 3.6 3.24 -Date of Last Picture (Recall this 03/20/22 03/27/22 field) -Photo Taken Yes Yes -Epithelialization Small 1-33% Small 1-33% -Tunneling No No -Undermining/Tunneling Yes No -Undermining/Tunneling Starts (O'clock 1 ) -Undermining/Tunneling Ends (O'clock) 6 -Maximum Distance (cm) 0.3 -Circular Undermining No No -Exudate Amt Medium Large -Exudate Type Serosanguineous Serosanguineous -Wound Margin Distinct, Distinct, Outline Outline Attached Attached -Granulation Amt Large (67-100%) Medium (34-66%) -Granulation Quality [place] -Slough/Fibrin Yes Yes -Necrosis Amt Small (1-33%) Medium (34-66%) -Necrotic Tissue Type Adherent Slough Adherent Slough -Structure Exposed Bone Bone -Texture (Bernadette-wound Skin Appearance) Assessed, Assessed, Scarring Scarring -Moisture (Bernadette-wound Skin Appearance) Assessed, Assessed, Maceration Maceration -Color (Bernadette-wound Skin Appearance) Assessed Assessed -Temperature (Bernadette-wound Skin No Abnormality No Abnormality Appearance) (Pt Warm) (Pt Warm) -Tenderness on Palpation (Bernadette-wound No No Skin Appearance) -Ulcer Cleansing Soap and Water Soap and Water -Foul Odor after Cleansing No No -Anesthetic Used 5% Lidocaine 5% Lidocaine Gel Gel WC - Nurse 2 - General Ulcer CM Notes Start: 03/20/22 10:30 Freq: Status: Active Protocol: Activity Type Activity Date Activity User E-sign Co-sign Detail Recorded Client Recorded Date Recorded By Document 03/20/22 10:43 ORESTES [id number] 03/20/22 10:47 ORESTES Edit Result 03/20/22 10:43 JF (1) [id number] 03/20/22 10:51 JF (1) #6- L MEDIAL FOOT - Clinical Debridement Subcutaneous => Muscle / Fascia - Tissue Removed Subcutaneous => Muscle,Fascia - Debridement - Subq, 1st 20sq cm No => - Debridement - Muscle / Fascia, 1st => No 20sq cm 03/20/22 10:43 Wound Center Nurse 2 -Time 10:43 -Correct Patient Yes -Correct Side, Site, Position Yes -Correct Procedure Yes -Procedure Performed Yes -Type of Procedure Debridement -Clinical Debridement Muscle / Fascia -Tissue Removed Muscle,Fascia -Post Debridement (cm) - Length 1.8 -Post Debridement (cm) - Width 2.1 -Post Debridement (cm) - Depth 0.8 -Total Square (Post) (cm) 3.78 -Area of Debridement (cm) - Length 1.8 -Area of Debridement (cm) - Width 2.1 -Total Square (Area) (cm) 3.78 -Tunneling No -Undermining/Tunneling No -Circular Undermining No -Wound/Ulcer Outcome Not Healed -Ulcer Cleansing Rinsed/ Irrigated with Saline -Foul Odor after Cleansing No -Bioengineered Tissue Yes -Type of Bioengineered Tissue Epifix -Expiration Date 10/16/26 -Product Lot Number [id number] -Percent Used 100 -Lot number of Saline Used [id number] -Bleeding Controlled with Pressure -Treatment Response Procedure Tolerated Well -Offloading Yes -Type of Offloading Surgical Shoe -Debridement - Muscle / Fascia, 1st No 20sq cm -Apply Skin Sub - 1st 25 sq cm - Feet 1 -Epifix (per sq cm) 4 Pain Scale: 0-10 Numeric Is Patient Pain Free? Yes - Nurse 3 - General Ulcer D/C NN Start: 03/20/22 10:30 Freq: Status: Active Protocol: Activity Type Activity Date Activity User E-sign Co-sign Detail Recorded Client Recorded Date Recorded By Document 03/20/22 10:55 [facility] [id number] 03/20/22 10:56 [facility] 03/20/22 10:55 Wound Care Nurse 3 #6- L MEDIAL FOOT -Other Dressing EPI -Primary Dressing Covered/Secured with Dry Gauze & Roll Gauze, Secured with Tape -Other Covering ABD Left -Compression Wrap Mian Wrap -Other MIAN TO SECURE Treatment Response Procedure Tolerated Well Pain Scale: 0-10 Numeric Is Patient Pain Free? Yes WC - Visit Discharge Discharge Condition Stable Ambulatory Status Wheelchair Transportation Private Auto Assessment/Plan Assessment/Plan (1) Peripheral vascular disease, unspecified: CODE(S): I73.9 - Peripheral vascular disease, unspecified (2) Type 2 diabetes mellitus with diabetic polyneuropathy: CODE(S): E11.42 - Type 2 diabetes mellitus with diabetic polyneuropathy (3) Chronic diabetic ulcer of left foot determined by examination: CODE(S): E11.621 - Type 2 diabetes mellitus with foot ulcer; L97.529 - Non-pressure chronic ulcer of other part of left foot with unspecified severity PLAN: Patient examined evaluated, all findings discussed with patient in detail. Wounds to left foot are improving at this time. dorsal lateral foot wound improving. Plantar midfoot wound improving. Increased granulation around medial first MPJ and fibrous and subcutaneous tissue was debrided today. Patient is following with vascular surgery as an outpatient. Patient has healthy bleeding upon debridement suggestive of good wound healing potential. Blood thinner use noted. no infection today. The left first metatarsal phalangeal joint wound, dorsal lateral foot wound and plantar midfoot wounds were debrided down to including level of capsule and tendon of all nonviable tissue without incident. This was performed using 15 blade scalpel and forceps. Hemostasis obtained with light compression. Patient tolerated procedure well. No anesthesia due to neuropathy. Pre and postdebridement measurements documented in nursing notes. He was approved for application of advanced wound healing product and epi cord was applied according to standard protocol after verbal consent was obtained. This was applied to the medial first MPJ site in which insurance approval was obtained for. 100% of the product was utilized (epifix 4x4 11 billing unit graft). This was further secured in place with a wound veil and Steri-Strips. A secondary dressing was applied and he will keep this clean, dry, and intact until follow-up next week. The indications, benefits, application series, and anticipated healing time was reviewed. Patient will perform daily cleansing of his foot with dressing changes consisting of Dakin's DSD no compression to non epicord application site (s). Patient will maintain heel weightbearing status in cam walking boot assisted with a walker patient has a walker at home. Patient will follow up in 1 week. Patient is high risk for proximal amputation and understands this.
[2022-04-03 10:50] VITALS: BP 110/73; PULSE 96; RESP 18; TEMP 36.4; BMI 23.8
--- NOTE | 2022-04-03 11:09 | PN.PCM_ITS ---
History of Present Illness Date of Service: 04/03/22 Chief Complaint: Left foot ulcers x 3 History of Wound: This 61-year-old male seen in the wound care center for chronic left foot ulcerations secondary to peripheral arterial disease and amputations. Patient recently underwent quadruple bypass surgery successfully at [facility]. Patient has stent placed in popliteal artery due to popliteal occlusion and left lower extremity on the hospital previously. Subsequently the next day patient had a wound debridement with amputation of the fourth ray left open with vessel loop closure to the dorsal midfoot and wet-to-dry dressings to the plantar midfoot and medial first metatarsophalangeal joints. At this time he denies any constitutional symptoms, chest pain, calf pain, or shortness of breath. Patient received 6 weeks IV antibiotics at [facility]. He is amendable to proceed with advanced wound healing product application today if it has been approved by the insurance. Objective Data Objective Data Vital Signs: Vital Signs Temp Pulse Resp BP O2 Del Method 97.5 F L 96 18 110/73 Room Air 04/03/22 10:50 04/03/22 10:50 04/03/22 10:50 04/03/22 10:50 03/27/22 10:23 Oxygen Delivery Method Room Air Weight: 77.564 kg Body Mass Index (BMI) 23.8 Physical Exam Narrative Improve vascularity left lower extremity. Dermatologic: Partial third and fourth ray resection sites with with wound demonstrates granular natured base, decrease in size. Plantar midfoot wound - healed. Medial first metatarsal phalangeal joint wound is down to level of capsule there is a bleeding granular wound edge but the base of the wound improving and granulating in nature. Adjacent skin is hairless and atrophic. There is no visualized or palpable bone. New wound to dorsal second digit. All other wounds improving at this time. Wound to second digit at apex of hammertoe formation on the left foot. Demonstrates granular base no signs of infection deep probing or undermining. Musculoskeletal: Partial amputation to left third and fourth ray. Muscular strength 5 out of 5 to bilateral lower extremity compartments No pain with calf squeeze bilateral lower extremities. Debridement Note Debridement Note Post-Debridement Measurements and Additional Note: Post-Debridement Measurements/Treatment ROYCE - Nurse 1 - General Ulcer Assessment Start: 03/20/22 10:30 Freq: Status: Active Protocol: ROYCE.LOWEXT Activity Type Activity Date Activity User E-sign Co-sign Detail Recorded Client Recorded Date Recorded By Document 03/20/22 10:31 DL [id number] 03/20/22 10:36 DL Document 03/27/22 10:23 [facility] [id number] 03/27/22 10:29 BMF Document 04/03/22 10:50 ML [id number] 04/03/22 10:52 ML 03/20/22 03/27/22 04/03/22 10:31 10:23 10:50 WC - Today's Visit Information Type of service Follow-up Visit Follow-up Visit Follow-up Visit (Physician/NUCLEAR TEST TECHNICIAN (Physician/NUCLEAR TEST TECHNICIAN (Physician/NUCLEAR TEST TECHNICIAN ) ) ) Arrival Mode Wheelchair Wheelchair Ambulatory, Wheelchair Transfer Assistance None None Patient Identification Verified (Name & Yes Yes Yes ) Patient Requires Transmission-Based No No No Precautions Finger Stick Blood Sugar(mg/dl) (if 141 indicated): Blood Sugar Stated by Patient Height and Weight Body Mass Index (BMI) 23.8 23.8 23.8 BMI Classification Normal Normal Normal Vital Signs Temperature (97.8 F-99.1 F) 97.2 F L 95.6 F L 97.5 F L Temperature Source Temporal Temporal Temporal Pulse Rate (60-100) 97 82 96 Pulse Location Monitor Monitor Monitor Respiratory Rate (12-18) 16 16 18 Respiratory rate source Observation Observation Observation Oxygen Delivery Method Room Air Room Air Blood Pressure (90/60-120/80) 127/79 H 112/73 110/73 Blood Pressure Mean (mm Hg) 95 86 85 Source Monitor Monitor Monitor Position Sitting Sitting Blood Pressure Location Left Arm Left Arm History Since Last Visit- (Skip if this is Patient's initial visit) Have you changed medications since your No No No last visit? Any new allergies or adverse reactions No No No Had a fall/change in ADL's that may No No No increase risk of falls Signs or symptoms of abuse and/or No No No neglect since last visit Have you been in the hospital since your No No No last visit? Has dressing in place as prescribed Yes Yes Yes Has compression in place as prescribed Yes N/A Has offloadiing in place as prescribed Yes Yes Yes Experienced any changes in pain level or No No No management Left Footwear Surgical Shoe Surgical Shoe with pressure with pressure relief insole relief insole Right Footwear Regular Shoe Regular Shoe Pain Scale: 0-10 Numeric Is Patient Pain Free? Yes Yes Yes WC - Nurse 1 - General Ulcer Measurement Start: 03/20/22 10:30 Freq: Status: Active Protocol: Activity Type Activity Date Activity User E-sign Co-sign Detail Recorded Client Recorded Date Recorded By Document 03/20/22 10:31 DL [id number] 03/20/22 10:36 DL Document 03/27/22 10:23 BMF [id number] 03/27/22 10:29 BMF Document 04/03/22 10:50 ML [id number] 04/03/22 10:52 ML 03/20/22 03/27/22 04/03/22 10:31 10:23 10:50 Wound Center Nurse 1 #6- L MEDIAL FOOT -Combined with other wound No No -Current Size (cm) - Length 1.8 1.8 1.1 -Current Size (cm) - Width 2 1.8 2.1 -Current Size (cm) - Depth 0.7 0.7 0.6 -Total Square Cm 3.6 3.24 2.31 -Date of Last Picture (Recall this 03/20/22 03/27/22 field) -Photo Taken Yes Yes Yes -Epithelialization Small 1-33% Small 1-33% -Tunneling No No -Undermining/Tunneling Yes No -Undermining/Tunneling Starts (O'clock 1 ) -Undermining/Tunneling Ends (O'clock) 6 -Maximum Distance (cm) 0.3 -Circular Undermining No No -Exudate Amt Medium Large Medium -Exudate Type Serosanguineous Serosanguineous Serosanguineous -Wound Margin Distinct, Distinct, Distinct, Outline Outline Outline Attached Attached Attached -Granulation Amt Large (67-100%) Medium (34-66%) Medium (34-66%) -Granulation Quality Bogart Bogart Bogart -Slough/Fibrin Yes Yes -Necrosis Amt Small (1-33%) Medium (34-66%) Medium (34-66%) -Necrotic Tissue Type Adherent Slough Adherent Slough Adherent Slough -Structure Exposed Bone Bone N/A -Texture (Bernadette-wound Skin Appearance) Assessed, Assessed, Scarring Scarring Scarring -Moisture (Bernadette-wound Skin Appearance) Assessed, Assessed, Maceration Maceration Maceration -Color (Bernadette-wound Skin Appearance) Assessed Assessed No Abnormality -Temperature (Bernadette-wound Skin No Abnormality No Abnormality No Abnormality Appearance) (Pt Warm) (Pt Warm) (Pt Warm) -Tenderness on Palpation (Bernadette-wound No No No Skin Appearance) -Ulcer Cleansing Soap and Water Soap and Water Soap and Water -Foul Odor after Cleansing No No No -Anesthetic Used 5% Lidocaine 5% Lidocaine 5% Lidocaine Gel Gel Gel WC - Nurse 2 - General Ulcer CM Notes Start: 03/20/22 10:30 Freq: Status: Active Protocol: Activity Type Activity Date Activity User E-sign Co-sign Detail Recorded Client Recorded Date Recorded By Document 03/20/22 10:43 JF [id number] 03/20/22 10:47 JF Edit Result 03/20/22 10:43 JF (1) [id number] 03/20/22 10:51 JF Document 03/27/22 13:16 JF [id number] 03/27/22 13:19 Document 04/03/22 11:01 ML [id number] 04/03/22 11:08 ML (1) #6- L MEDIAL FOOT - Clinical Debridement Subcutaneous => Muscle / Fascia - Tissue Removed Subcutaneous => Muscle,Fascia - Debridement - Subq, 1st 20sq cm No => - Debridement - Muscle / Fascia, 1st => No 20sq cm 03/20/22 03/27/22 04/03/22 10:43 13:16 11:01 Wound Center Nurse 2 #6- L MEDIAL FOOT -Time 10:43 13:16 11:02 -Correct Patient Yes Yes Yes -Correct Side, Site, Position Yes Yes Yes -Correct Procedure Yes Yes Yes -Procedure Performed Yes Yes Yes -Type of Procedure Debridement Debridement Debridement -Clinical Debridement Muscle / Fascia Subcutaneous Subcutaneous -Tissue Removed Muscle,Fascia Subcutaneous Subcutaneous -Post Debridement (cm) - Length 1.8 1.9 1.2 -Post Debridement (cm) - Width 2.1 1.9 2.1 -Post Debridement (cm) - Depth 0.8 0.7 0.3 -Total Square (Post) (cm) 3.78 3.61 2.52 -Area of Debridement (cm) - Length 1.8 1.9 1.2 -Area of Debridement (cm) - Width 2.1 1.9 2.1 -Total Square (Area) (cm) 3.78 3.61 2.52 -Tunneling No No No -Undermining/Tunneling No No No -Circular Undermining No No No -Wound/Ulcer Outcome Not Healed Not Healed Not Healed -Ulcer Cleansing Rinsed/ Rinsed/ Rinsed/ Irrigated with Irrigated with Irrigated with Saline Saline Saline -Foul Odor after Cleansing No No No -Bioengineered Tissue Yes Yes Yes -Type of Bioengineered Tissue Epifix Epifix Epifix -Expiration Date 10/16/26 10/16/26 10/16/26 -Product Lot Number [id number] -Percent Used 100 100 100 -Lot number of Saline Used [id number] -Bleeding Controlled with Pressure Pressure Pressure -Treatment Response Procedure Procedure Procedure Tolerated Well Tolerated Well Tolerated Well -Offloading Yes Yes Yes -Type of Offloading Surgical Shoe Surgical Shoe Surgical Shoe -Debridement - Subq, 1st 20sq cm No No -Debridement - Muscle / Fascia, 1st No 20sq cm -Apply Skin Sub - 1st 25 sq cm - Feet 1 1 1 -Epifix (per sq cm) 4 4 4 Pain Scale: 0-10 Numeric Is Patient Pain Free? Yes Yes Yes - Nurse 3 - General Ulcer D/C NN Start: 03/20/22 10:30 Freq: Status: Active Protocol: Activity Type Activity Date Activity User E-sign Co-sign Detail Recorded Client Recorded Date Recorded By Document 03/20/22 10:55 [facility] [id number] 03/20/22 10:56 [facility] Document 03/27/22 13:19 JF [id number] 03/27/22 13:20 JF 03/20/22 03/27/22 10:55 13:19 Wound Care Nurse 3 #6- L MEDIAL FOOT -Ulcer Cleansing Rinsed/ Irrigated with Saline -Foul Odor after Cleansing No -Other Dressing EPI -Primary Dressing Covered/Secured with Dry Gauze & Dry Gauze & Roll Gauze, Roll Gauze, Secured with Secured with Tape Tape -Other Covering ABD Left -Compression Wrap Mian Wrap Mian Wrap -Other MIAN TO SECURE Treatment Response Procedure Tolerated Well Pain Scale: 0-10 Numeric Is Patient Pain Free? Yes Yes WC - Visit Discharge Discharge Condition Stable Stable Ambulatory Status Wheelchair Wheelchair Transportation Private Auto Private Auto Medication Reconcilliation completed & Yes provided to patient/care provider Clinical Summary of Care Provided Yes Assessment/Plan Assessment/Plan (1) Peripheral vascular disease, unspecified: CODE(S): I73.9 - Peripheral vascular disease, unspecified (2) Type 2 diabetes mellitus with diabetic polyneuropathy: CODE(S): E11.42 - Type 2 diabetes mellitus with diabetic polyneuropathy (3) Chronic diabetic ulcer of left foot determined by examination: CODE(S): E11.621 - Type 2 diabetes mellitus with foot ulcer; L97.529 - Non-pressure chronic ulcer of other part of left foot with unspecified severity PLAN: Patient examined evaluated, all findings discussed with patient in detail. Wounds to left foot are improving at this time. dorsal lateral foot wound improving. Plantar midfoot wound improving. Increased granulation around medial first MPJ and fibrous and subcutaneous tissue was debrided today. Patient is following with vascular surgery as an outpatient. Patient has healthy bleeding upon debridement suggestive of good wound healing potential. Blood thinner use noted. no infection today. The left first metatarsal phalangeal joint wound, dorsal lateral foot wound and plantar midfoot wounds were debrided down to including level of capsule and tendon of all nonviable tissue without incident. This was performed using 15 blade scalpel and forceps. Hemostasis obtained with light compression. Patient tolerated procedure well. No anesthesia due to neuropathy. Pre and postdebridement measurements documented in nursing notes. He was approved for application of advanced wound healing product and epi cord was applied according to standard protocol after verbal consent was obtained. This was applied to the medial first MPJ site in which insurance approval was obtained for. 100% of the product was utilized (epifix 2x2, 4 billing unit graft). This was further secured in place with a wound veil and Steri-Strips. A secondary dressing was applied and he will keep this clean, dry, and intact until follow-up next week. The indications, benefits, application series, and anticipated healing time was reviewed. Patient will perform daily cleansing of his foot with dressing changes consisting of Dakin's DSD no compression to non epicord application site (s). Patient will maintain heel weightbearing status in cam walking boot assisted with a walker patient has a walker at home. Patient will follow up in 1 week. Patient is high risk for proximal amputation and understands this.
== END 2022-04-03 16:13 | disposition home or self-care (01) ==
LOC: WC 10:15
PROVIDERS: PCP Student in an Organized Health Care Education/Training Program; Visit Provider Podiatrist
DX: E11.621 Type 2 diabetes mellitus with foot ulcer (principal); E11.51 Type 2 diabetes mellitus with diabetic peripheral angiopathy without gangrene; L97.522 Non-pressure chronic ulcer of other part of left foot with fat layer exposed; E11.42 Type 2 diabetes mellitus with diabetic polyneuropathy; I73.9 Peripheral vascular disease, unspecified
CPT/HCPCS: 15275; Q4186

== ENCOUNTER 2022-04-12 10:00 | Inpatient (IN) | payer OTHER, SELFPAY ==
[2022-04-12] VITALS (62 sets, daily range): BP systolic 53–170; BP diastolic 31–111; PULSE 82–117; RESP 14–114; TEMP 35.1–37.7; O2SAT 92–100; BMI 23.2
[2022-04-12] MEDS: Etomidate 20 MG/10 ML Vial IV (10:01)
--- NOTE | 2022-04-12 10:02 | EKG12_ITS ---
Test Reason : Blood Pressure : / mmHG Vent. Rate : 098 BPM Atrial Rate : 098 BPM P-R Int : 174 ms QRS Dur : 134 ms QT Int : 380 ms P-R-T Axes : 076 104 -52 degrees QTc Int : 485 ms Sinus rhythm with occasional and consecutive Premature ventricular complexes and Fusion complexes Non-specific intra-ventricular conduction block Anterolateral infarct , age undetermined T wave abnormality, consider inferior ischemia Abnormal ECG Confirmed by MYA HALL, CHAPITO ([id number]), web editor LORE ROGERS ([id number]) on 04/16/2022 9:10:38 AM Referred By: JEAN Confirmed By:CHAPITO ROQUE MD
--- NOTE | 2022-04-12 10:24 | EDS_ITS ---
HPI History of Present Illness Chief Complaint: Unresponsive Detail of Chief Complaint: Unresponsive, GCS 4 Informant: spouse/S.O. and EMS Onset/Context/Timing Onset: Hours Context: Sudden Onset Timing: Intermittent Quality: Reported V. tach, unresponsive Location: Presents from home Worsened by: Unknown Relieved by: Unknown Associated Symptoms Length of loss of consciousness: Unknown Narrative Narrative: Patient is a 61-year-old male with history of ischemic cardiomyopathy, hypertension, hyperlipidemia, PAD, chronic diabetic foot ulcer with amputation of left fourth toe. Patient arrived unresponsive with a GCS of 4. He was being bagged. Prior similar symptoms: No Recent Illness/Hospitalization: No [facility] Medical History Amputated toe of left foot (08/2021) Arthritis Atherosclerotic heart disease of [place] coronary artery without angina pectoris Back pain due to injury Chronic cough Diabetes Diabetes type 2, uncontrolled Diabetic infection of left foot Essential hypertension Former tobacco use Hyperlipidemia Ischemic cardiomyopathy Non-pressure chronic ulcer of other part of left foot with fat layer exposed Non-pressure chronic ulcer of other part of left foot with necrosis of bone Osteomyelitis of foot, left, acute Osteomyelitis of left foot Peripheral vascular occlusive disease Restless legs Type 2 diabetes mellitus with diabetic polyneuropathy Uncontrolled type 2 diabetes mellitus Home Medications empagliflozin 25 mg tablet (Jardiance) 25 mg PO DAILY DM 05/25/21 [History Last Taken 05/25/21] gabapentin 800 mg tablet 800 mg PO TID pain 05/25/21 [History Last Taken 07/31/21] metformin 1,000 mg tablet 1,000 mg PO BID DM 05/25/21 [History Last Taken 05/25/21] semaglutide 1 mg/dose (4 mg/3 mL) subcutaneous pen injector (Ozempic) 1 mg sub cut FR DM 05/25/21 [History Last Taken 05/19/21] trazodone 100 mg tablet 100 mg PO QHS sleep 05/25/21 [History Last Taken 05/24/21] clopidogrel 75 mg tablet (Plavix) 75 mg PO DAILY blood thinner 07/11/21 [History Last Taken Unknown] acetaminophen 325 mg tablet (Tylenol) 650 mg PO Q6H PRN PRN Pain Score 1-10/Temp > 100.7 F #0 tabs 10/02/21 [Rx Last Taken Unknown] glipizide 5 mg tablet 5 mg PO BID 10/06/21 [History Last Taken Unknown] metoprolol succinate 25 mg tablet,extended release 24 hr 25 mg PO DAILY #90 tabs 10/23/21 [Rx Last Taken Unknown] atorvastatin 80 mg tablet 80 mg PO QHS #90 tabs 01/02/22 [Rx Last Taken Unknown] aspirin 81 mg tablet,delayed release 81 mg PO DAILY #90 tabs 01/17/22 [Rx Last Taken Unknown] lisinopril 2.5 mg tablet 2.5 mg PO DAILY #90 tabs 01/17/22 [Rx Last Taken Unknown] Allergy/AdvReac Type Severity Reaction Status Date / Time No Known Allergies Allergy Verified 01/17/22 15:38 Family History Mother Hypertension CVA (cerebral vascular accident) Diabetes Surgical History H/O coronary artery bypass surgery (08/31/21) H/O spinal fusion History of angioplasty of peripheral vessel (08/2021) History of left heart catheterization (07/31/21) Social History household members: spouse Smoking Status: Former smoker how long ago did patient quit smoking: Quit 1987, smoked 1.5 ppd since teen. alcohol intake: never substance use type: does not use ROS ROS ED Review of Systems ROS Unobtainable: due to mental status and other Details: Per he was unresponsive. He had no complaints. EXAM Physical Exam Const Vital Signs: 04/12/22 10:10 04/12/22 10:00 04/12/22 10:41 Temperature 96.5 F L Temperature Source Core Pulse Rate 100 Pulse Rate [8] 117 H Respiratory Rate 14 Respiratory Rate [8] 22 H Blood Pressure 110/78 Blood Pressure [8] 170/111 H Blood Pressure Mean 88 Blood Pressure Source Pulse Ox 94 Oxygen Delivery Method Ambu-Bag Mechanical Ventilator Oxygen Flow Rate (L/min) 15 Fraction of Inspired Oxygen (FIO2) 100 04/12/22 10:44 04/12/22 10:45 04/12/22 10:49 Temperature 96.8 F L 96.8 F L 96.8 F L Temperature Source Core Core Core Pulse Rate 105 H 106 H 105 H Pulse Rate [8] Respiratory Rate 16 14 14 Respiratory Rate [8] Blood Pressure 110/78 72/60 L 72/60 L Blood Pressure [8] Blood Pressure Mean 88 64 64 Blood Pressure Source Pulse Ox 94 100 96 Oxygen Delivery Method Mechanical Ventilator Mechanical Ventilator Mechanical Ventilator Oxygen Flow Rate (L/min) Fraction of Inspired Oxygen (FIO2) 04/12/22 10:20 04/12/22 10:58 04/12/22 11:07 Temperature 96.9 F L Temperature Source Core Pulse Rate 106 H 97 Pulse Rate [8] Respiratory Rate 14 17 Respiratory Rate [8] Blood Pressure 63/48 L 63/48 L Blood Pressure [8] Blood Pressure Mean 53 53 Blood Pressure Source Monitor Pulse Ox Oxygen Delivery Method Oxygen Flow Rate (L/min) Fraction of Inspired Oxygen (FIO2) 100 04/12/22 11:15 Temperature 96.8 F L Temperature Source Core Pulse Rate 92 Pulse Rate [8] Respiratory Rate 114 H Respiratory Rate [8] Blood Pressure 61/51 L Blood Pressure [8] Blood Pressure Mean 54 Blood Pressure Source Pulse Ox 100 Oxygen Delivery Method Mechanical Ventilator Oxygen Flow Rate (L/min) Fraction of Inspired Oxygen (FIO2) Positive well developed, cachectic and unkempt Constitutional Narrative: Patient arrived with central cyanosis, and ischemic appearing left leg with minimal air movement. He does have complexes on the monitor. He does have a palpable pulse. General Appearance ED: unkempt, well developed, cachectic and pallor Nutritional Appearance: cachectic HEENT HEENT Narrative: Poor dentition and dry mucosa with collection of secretion the posterior pharynx. Patient does have ketotic odor to his breath. normocephalic and atraumatic Eyes PERRL and EOMs intact bilaterally General Eye ED: Yes pale conjunctiva; Negative for scleral icterus Neck full ROM, no lymphadenopathy, supple and no JVD Neck Narrative: Trachea is midline. Chest Wall Chest Narrative: Patient's ribs are visibly seen. Breath sounds are diminished bilaterally. Cardio S1 normal heart sound, S2 normal heart sound and no murmurs Cardio Narrative: Irregular due to frequent unifocal ventricular premature beats and nonsustained V. tach GI no masses GI Narrative: Abdomen is scaphoid. Bowel sounds are diminished. There is no palpable pulsatile mass. There is no abdominal bruit. Palpation: soft Extremity Extremity Narrative: Patient has a necrotic ulcer dorsal medial aspect the left foot. Fourth toe has been amputated. Patient has purple toes. There is area of demarcation at the mid inferior third of the leg. Neuro No oriented x3, No CN's II-XII intact bilaterally and No no sensory deficits noted Neuro Narrative: GCS is 4 Sensorium / Orientation: Negative for alert Speech: Negative for speech normal Gait (Neuro): Negative for normal gait Motor Exam: Negative for strength 5/5 throughout Psych Appearance: unkempt Skin Skin Narrative: Diabetic necrotic foot ulcer as previously described General Skin Exam: pallor; Negative for jaundice MDM MDM MDM Narrative Medical decision making narrative: Patient arrived requiring assisted ventilation appears mottled and GCS of 4 he was orotracheal intubated. He received 20 mg etomidate and 50 mg of rocuronium. He was easily orotracheal intubated with a 7.5 endotracheal tube first attempt using glide scope. There is appropriate color change on capnometer. Breath sounds were noted bilaterally. Dr. Pat did speak with . She was informed of condition. Required requested to come in room during CPR. After I exited the room to place additional orders I was informed the patient is unresponsive and in V. tach. Patient presently has no pulses. He was treated for PEA since he has nonsustained V. tach with wide-complex QRS noted on monitor. Prehospital EKG revealed peaked T waves. In light of peaked T waves with ketotic breath blood sugar of 400-500 concerned that this may represent hyperkalemia. He was treated initially with epinephrine and bicarb. He recei rodney additional dose of epinephrine and bicarb. After several rounds of CPR patient had spontaneous return of pulses. His blood pressure presently is 170/111. GCS is 3T. Patient was treated for PEA, V. fib, presumed hyperkalemia,. I was informed that blood sugar was greater than 600. Suspect he is in DKA and will await electrolyte panel to determine next step. Patient did receive a liter of normal saline wide open. Once patient is stabilized we will need to speak to vascular since patient has an ischemic left leg. Will obtain CPK because of concern for rhabdomyolysis as well. VBG reveals a metabolic acidosis with a pH of 7.41, PCO2 42, PO2 50, bicarb 14 with a base excess of -14.5 and a 73.6% saturation. Patient is presently on 100%. Lab Data Attestation: I reviewed the patient's lab results. Lab results narrative: Count is elevated with shift. Hematocrit is slightly elevated. MCV is elevated 95.8. Coags are normal. Electrolyte panels marked for hyponatremia with a sodium 125. This is pseudohyponatremia due to a glucose of 1958. CO2 is 12 with an anion gap of 29. Patient also has acute renal failure with a BUN and creatinine of 102 and 4.56. Troponin is normal. Lactate and CPK are pending the CT K did return valacyclovir 429. Lack [place] is elevated 7.5. Labs: Laboratory Results - last 24 hr 04/12/22 04/12/22 04/12/22 10:05 10:05 10:05 WBC 14.0 H RBC 5.69 Hgb 13.6 Hct 54.5 H MCV 95.8 H MCH 23.9 L MCHC 25.0 L RDW Std Deviation 61.2 H RDW Coeff of Imtiaz 17.8 H Plt Count 423 MPV 11.7 Immature Gran % (Auto) 1.300 H Neut % (Auto) 84.6 H Lymph % (Auto) 7.6 L [place] % (Auto) 6.0 Eos % (Auto) 0.1 Baso % (Auto) 0.4 Absolute Neuts (auto) 11.9 H Absolute Lymphs (auto) 1.07 Nucleated RBC % 0 PT 15.1 H INR 1.2 APTT 26.8 Sodium 125 L Potassium 5.0 Chloride 84 L Carbon Dioxide 12.0 L Anion Gap 29 H BUN 102 H* Creatinine 4.56 H Estim Creat Clear Calc 19.14 Est GFR (MDRD) Af Amer 17 L Est GFR (MDRD) Non-Af 14 L BUN/Creatinine Ratio 22.4 H Glucose 1958 H* Lactic Acid Calcium 9.7 Magnesium 4.0 H Total Bilirubin 0.50 Direct Bilirubin 0.13 AST 24 ALT 22 Alkaline Phosphatase 125 H Total Creatine Kinase Troponin I High Sens 22 B-Natriuretic Peptide Total Protein 7.8 Albumin 2.8 L Globulin 5.0 H Urine Color Urine Clarity Urine pH Ur Specific [place] Urine Protein Urine Glucose (UA) Urine Ketones Urine Occult Blood Urine Nitrite Urine Bilirubin Urine Urobilinogen Ur Leukocyte Esterase Urine RBC Urine WBC Ur Squamous Epith Cells Urine Bacteria Urine Mucus Urine Opiates Screen Urine Methadone Screen Ur Barbiturates Screen Ur Phencyclidine Scrn Ur Amphetamines Screen MDMA (Ecstasy) Screen U Benzodiazepines Scrn Urine Cocaine Screen U Cannabinoids Screen Ur Drug Screen Comment 04/12/22 04/12/22 04/12/22 10:05 10:05 10:05 WBC RBC Hgb Hct MCV MCH MCHC RDW Std Deviation RDW Coeff of Itmiaz Plt Count MPV Immature Gran % (Auto) Neut % (Auto) Lymph % (Auto) [place] % (Auto) Eos % (Auto) Baso % (Auto) Absolute Neuts (auto) Absolute Lymphs (auto) Nucleated RBC % PT INR APTT Sodium Potassium Chloride Carbon Dioxide Anion Gap BUN Creatinine Estim Creat Clear Calc Est GFR (MDRD) Af Amer Est GFR (MDRD) Non-Af BUN/Creatinine Ratio Glucose Lactic Acid 7.5 H* Calcium Magnesium Total Bilirubin Direct Bilirubin AST ALT Alkaline Phosphatase Total Creatine Kinase 429 H Troponin I High Sens B-Natriuretic Peptide 25.4 Total Protein Albumin Globulin Urine Color Urine Clarity Urine pH Ur Specific [place] Urine Protein Urine Glucose (UA) Urine Ketones Urine Occult Blood Urine Nitrite Urine Bilirubin Urine Urobilinogen Ur Leukocyte Esterase Urine RBC Urine WBC Ur Squamous Epith Cells Urine Bacteria Urine Mucus Urine Opiates Screen Urine Methadone Screen Ur Barbiturates Screen Ur Phencyclidine Scrn Ur Amphetamines Screen MDMA (Ecstasy) Screen U Benzodiazepines Scrn Urine Cocaine Screen U Cannabinoids Screen Ur Drug Screen Comment 04/12/22 04/12/22 10:20 10:20 WBC RBC Hgb Hct MCV MCH MCHC RDW Std Deviation RDW Coeff of Imtiaz Plt Count MPV Immature Gran % (Auto) Neut % (Auto) Lymph % (Auto) [place] % (Auto) Eos % (Auto) Baso % (Auto) Absolute Neuts (auto) Absolute Lymphs (auto) Nucleated RBC % PT INR APTT Sodium Potassium Chloride Carbon Dioxide Anion Gap BUN Creatinine Estim Creat Clear Calc Est GFR (MDRD) Af Amer Est GFR (MDRD) Non-Af BUN/Creatinine Ratio Glucose Lactic Acid Calcium Magnesium Total Bilirubin Direct Bilirubin AST ALT Alkaline Phosphatase Total Creatine Kinase Troponin I High Sens B-Natriuretic Peptide Total Protein Albumin Globulin Urine Color Yellow Urine Clarity Clear Urine pH 5.0 Ur Specific [place] 1.010 Urine Protein 30 H Urine Glucose (UA) 1000 H Urine Ketones 5 H Urine Occult Blood ~50 H Urine Nitrite Negative Urine Bilirubin Negative Urine Urobilinogen Normal Ur Leukocyte Esterase Negative Urine RBC 0-5 SEEN Urine WBC 0-5 SEEN Ur Squamous Epith Cells 0 SEEN Urine Bacteria 0 SEEN Urine Mucus 0 SEEN Urine Opiates Screen NEGATIVE Urine Methadone Screen NEGATIVE Ur Barbiturates Screen NEGATIVE Ur Phencyclidine Scrn NEGATIVE Ur Amphetamines Screen NEGATIVE MDMA (Ecstasy) Screen NEGATIVE U Benzodiazepines Scrn NEGATIVE Urine Cocaine Screen POSITIVE H U Cannabinoids Screen POSITIVE H Ur Drug Screen Comment ABG #2 reveals a metabolic acidosis with a pH of 7.1, PCO2 31.9, P0 271.7, bicarb 10.1 with a base excess of -19.4. Saturation 99%. This is on ventilator. Patient is present on 100%. Tidal volume is 450. Rate is 14. This indicates a metabolic acidosis with significant AA gradient. ABG Data ABG results: ABG 04/12/22 04/12/22 10:32 10:59 Specimen Type MACARIO ART Sample Site R Radial R Brach pH 7.14 L* 7.11 L* Bicarbonate Actual 14.5 L 10.1 L Total CO2 16 11 Base Excess -15 L -19 L O2 Saturation 74 L 99 O2 % 100 100 ABG pCO2 42.3 31.9 L ABG pO2 50 L 172 H Octavio Test Positive N/A Respiration Rate 14 O2 Delivery Device Adult Vent ET Tube Vent Mode AC Tidal Volume 450 450 POC PEEP 5 Crit Call To/Read Back Yes Yes Blood Gas Notified Whom camp Rhythm Strip Rhythm Strip: Documented the MDM. EKG Initial EKG: Attestation: I personally reviewed and interpreted this EKG as follows: Interpretation: Sinus Rhythm (Rate is 98. WI interval is 174 ms. Cures duration is prolonged at 134/milliseconds. QT duration 380 ms. Patient has multiple unifocal premature complexes noted. Patient has an nonspecific intraventricular conduction delay. T waves are peaked and raise concern for hyperkalemia. Patient also sinclair) Procedures Intubations Intubation Method: orotracheal Intubation Verification: Positive color change Intubation Complications: no complications Other Procedures Procedure(s): 1. Ventilation by bag valve mask by respiratory therapist and be 2. Oral tracheal intubation via RSI technique 3. OG per nursing staff 4. Johnson per nursing staff 5. CPR, ACLS algorithm for PEA, presumed hyperkalemia and V. fib. Patient did receive amiodarone and was placed on amiodarone drip. Because of concern for hyperkalemia he received 1 amp of calcium gluconate. Chloride was not ordered since he does not have a central line. 6. Right subclavian line. Consent was obtained from . She was explained risk benefits. She was informed of my complications. Patient was prepped draped sterile manner. All participants in the room were wearing a cap and mask. Hospital protocol was adhered to. Patient was prepped draped sterile manner. The right subclavian vessel was cannulated sensibly on first attempt on the way in. Using Salinger technique 7.5 [place] triple-lumen was placed. Blood was aspirated from all 3 ports. And spite of second liter of normal saline administered with pressure pump pat ient remains hypotensive. Levophed drip was ordered. Critical Care Time Critical Care Time: Yes Critical care time (excluding procedures): 30-74 minutes (47 minutes), Including time spent: (History, physical, documentation, review of prior records, discussion with family), Discussing w/Patient &/or Family/D[employer]el [employer]rofit Installer (Per he is a full code. As noted in the MDM Dr. Pat did speak to while I was in room running the code.), Discussing w/Consultants (Spoke with Dr. Jordy Avery snack bar cashier. He will see patient in the emergency department. He was made aware of patient's history physical and findings.), Arranging Admission or Transfer, Performing Direct Patient Care at Bedside and - (The hospitalist made aware of patient. Patient be admitted to ICU with consultation to snack bar cashier, Dr. Jordy Avery) Discharge Plan Triage Chief Complaint: Unresponsive ED Provider: Timothy Camp Dx/Rx/DC Orders Clinical Impression: Cardiopulmonary arrest with successful resuscitation, Ischemic cardiomyopathy, Osteomyelitis of left foot, DM hyperosmolar coma, type 2, Acute hypotension, Shock circulatory, Acidosis, lactic, Acute upper gastrointestinal bleeding, Ischemia of left lower extremity, Peripheral vascular occlusive disease, Acute uremia, Acute kidney failure, Ventricular fibrillation Prescriptions: No Action lisinopril 2.5 mg tablet 2.5 mg PO DAILY Qty: 90 3RF aspirin 81 mg tablet,delayed release (DR/EC) 81 mg PO DAILY Qty: 90 3RF metoprolol succinate 25 mg tablet extended release 24 hr 25 mg PO DAILY Qty: 90 3RF gabapentin 800 mg tablet 800 mg PO TID trazodone 100 mg tablet 100 mg PO QHS metformin 1,000 mg tablet 1,000 mg PO BID Label Comments: TAKE 1 TABLET BY MOUTH TWICE A DAY Jardiance 25 mg tablet 25 mg PO DAILY Label Comments: TAKE 1 TABLET BY MOUTH EVERY DAY IN THE MORNING Ozempic 1 mg/dose (4 mg/3 mL) pen injector 1 mg SUBCUT FR Label Comments: 1 MG SUBCUTANEOUS EVERY WEEK FOR 90 DAY(S) Rx Instructions: weekly clopidogrel [Plavix] 75 mg Tablet 75 mg PO DAILY acetaminophen [Tylenol] 325 mg Tablet 650 mg PO Q6H PRN PRN (Reason: Pain Score 1-10/Temp > 100.7 F) Qty: 0 0RF glipizide 5 mg tablet 5 mg PO BID Label Comments: TAKE 1 TABLET BY MOUTH TWICE A DAY BEFORE MEALS atorvastatin 80 mg tablet 80 mg PO QHS Qty: 90 3RF Primary Care Provider: Javy Alcaraz Referrals: Javy Alcaraz DO [Primary Care Provider] - Disposition Disposition: Acute Care Hospital [facility]
[2022-04-12 10:31] LABS: Absolute Lymphocyte Count 1.07 X10^3/uL (0.83-4.51); Absolute Neutrophil Count 11.9 X10^3/uL (2.0-7.7); Basophil# 0.05 X10^3/uL; Basophil% 0.4 % (0-1); Eosinophil# 0.01 X10^3/uL; Eosinophils% 0.1 % (0-5); Hematocrit 54.5 % (40-54); Hemoglobin 13.6 g/dL (13.0-16.5); Lymphocyte # 1.07 X10^3/ul (0.83-4.51); Lymphocyte % 7.6 % (19-41); Mean Corpuscular Hgb 23.9 pg (27.0-32.0); Mean Corpuscular Volume 95.8 fL (80-94); Mean Platelet Vol. 11.7 fl (6.2-12.0); Monocyte# 0.84 X10^3/uL; NRBC Flagged by Analyzer 0 % (0-5); Neutrophil # 11.89 X10^3/uL (2.7-7.7); Neutrophil % 84.6 % (47-70); Platelet Count 423 K/mm3 (150-450); RBC Distribution Width CV 17.8 % (11.6-14.6); RBC Distribution Width SD 61.2 fl (35.1-43.9); Red Blood Count 5.69 M/mm3 (4.6-6.2)
[2022-04-12 10:35] LABS: International Normalized Ratio 1.2; Prothrombin Time (Protime)PT. 15.1 SECONDS (11.7-14.9)
[2022-04-12 10:36] LABS: Partial Thromboplast Time 26.8 Seconds (24.1-36.2)
[2022-04-12] MEDS: Calcium Gluconate 1 GM/10 ML Vial IVP (10:37)
[2022-04-12 10:39] LABS: Bacteria 0 SEEN /hpf (None Seen); Mucous, Urine 0 SEEN /hpf (<or=2+); Squamous Epithelial Cells - UA 0 SEEN /hpf (0-5)
[2022-04-12 10:40] LABS: Allen Test Positive; Base Excess -15 mmol/L (-2 to +2); Bicarbonate 14.5 mmol/L (22-26); FI02 100; O2 Delivery Device Adult Vent; PEEP 5; PO2 50 mmHG (75-100); SITE R Radial; SO2 74 % (95-99); Total Carbon Dioxide 16 mmol/L; Vt 450; pCO2 42.3 mmHg (35-45); pH 7.14 (7.35-7.45)
[2022-04-12 10:42] LABS: BNP,B-Type NATRIURETIC PEPTIDE 25.4 pg/mL (0-100)
[2022-04-12 10:46] LABS: Color, Urine Yellow (Yellow); Glucose, Dipstick 1000 mg/dl (Normal); Urine Clarity Clear (Clear)
[2022-04-12 10:48] LABS: Ketone-Dipstick 5 mg/dl (Negative); Protein-Dipstick 30 mg/dl (Negative); Urine Bilirubin Dipstick Negative (Negative)
[2022-04-12 10:49] LABS: Leukocyte Esterase-Dipstick Negative /ul (Negative); Nitrite-Dipstick Negative (Negative); Urine Urobilinogen Normal (Normal)
[2022-04-12 10:54] LABS: Blood Gas Specimen Type VEN
[2022-04-12 10:54] LABS: Red Blood Cells-Urine 0-5 SEEN /hpf (0-5); White Blood Cells 0-5 SEEN /hpf (0-5)
[2022-04-12 10:56] LABS: Amphetamine Urine VISTA NEGATIVE (<1000 ng/mL); Barbiturate Urine VISTA NEGATIVE (< 200 ng/mL); Benzodiazepine Urine VISTA NEGATIVE (< 200 ng/mL); Cocaine Urine VISTA POSITIVE (< 300 ng/mL); Ecstacy Urine VISTA NEGATIVE (< 500 ng/mL); Methadone Urine VISTA NEGATIVE (< 300 ng/mL); PCP Urine VISTA NEGATIVE (< 25 ng/mL); THC Urine VISTA POSITIVE (< 50 ng/mL); Vista UDS pH Range 5
[2022-04-12 10:56] LABS: AST(SGOT) 24 U/L (15-37); Alanine Aminotransfer ALT/SGPT 22 U/L (16-61); Albumin, Serum 2.8 g/dL (3.2-5.0); Alkaline Phosphatase 125 U/L (45-117); Anion Gap 29 (5-15); BUN 102 mg/dL (7-18); BUN/Creat Ratio 22.4 RATIO (10-20); Bilirubin, Direct 0.13 mg/dL (0.00-0.30); Calcium,Total 9.7 mg/dL (8.5-10.1); Chloride 84 mmol/L (98-107); Creatinine, Serum 4.56 mg/dL (0.70-1.30); EST Glomerular Filtration Rate 14 mL/min (>60); Est Glom Filt Rate - Afr Amer 17 mL/min (>60); Estimated Creatinine Clearance 19.14 ml/min; Glucose 1958 mg/dL (74-106); Protein, Total 7.8 g/dL (6.4-8.2); Sodium Level 125 mmol/L (136-145); Troponin-I HS (w/2H Reflex) 22 pg/mL (3.0-78.0)
--- NOTE | 2022-04-12 10:57 | NURSING ---
CALL FROM LAB , BUN 102, GLUCOSE 1957. DR. PENA AWARE.
[2022-04-12 10:58] LABS: CPK Total, Creatine Kinase 429 U/L (39-308)
[2022-04-12] MEDS: Amiodarone 360 MG in Dextrose 5% Viaflo Bag 192.8 ML 33.3 MG CONT INF (10:58)
--- NOTE | 2022-04-12 10:58 | CPS ---
Critical value noted, unable to verify with second sample due to lack of sample. Hand delivered results to DR. Maria. Verified by read back.
[2022-04-12 11:04] LABS: Lactic Acid 7.5 mmol/L (0.4-1.9)
[2022-04-12 11:05] LABS: Base Excess -19 mmol/L (-2 to +2); Bicarbonate 10.1 mmol/L (22-26); Blood Gas Specimen Type ART; FI02 100; Mode AC; O2 Delivery Device ET Tube; PO2 172 mmHG (75-100); RR 14; SITE R Brach; SO2 99 % (95-99); Total Carbon Dioxide 11 mmol/L; Vt 450; pCO2 31.9 mmHg (35-45); pH 7.11 (7.35-7.45)
--- NOTE | 2022-04-12 11:06 | NURSING ---
CALL FROM LAB, LACTIC ACID 7.5, DR PENA AWARE
--- NOTE | 2022-04-12 11:06 | CM.ED ---
Social Work Note Referral Source: Code Blue Referral Reason: emotional support SW met with patient's in the waiting area and introduced herself and role as [facility] Harvest Supervisor. MD Pat also met with patient's to update her on patient's condition while MD Maria was assisting patient. Emotional support was provided. Patient's bedside until her son, Constantino, arrived. SW met with patient's son in triage, patient's joined us. Patient's updated patient's son on patient's condition, emotional support provided. JOE Clarke updated patient's family on patient's current condition. Patient's family wanting to go into patient's room when they are able but voiced understanding of needing to wait while medical care is provided. SW will continue to follow. Ana Henry MSW, KAYLIN
--- NOTE | 2022-04-12 11:11 | RAD_ITS ---
STUDY: X-RAY CHEST REASON FOR EXAM: Male, 61 years old. Central line, et tube placement, og tube placement TECHNIQUE: Single AP portable view of the chest. COMPARISON: Comparison is made with prior study dated 09/27/2021. FINDINGS: An endotracheal tube is seen. The tip is at 6.5 cm proximal to the silvia. An oral gastric tube is seen with the tip in the fundal portion of the stomach. A right-sided central catheter has been placed and the tip is at the junction of the superior vena cava and right atrium. Since prior study, there has been an increase in the reticular pattern in the right lower lobe as well as in the peripheral aspect of the right upper lobe. This may represent progressive scarring versus superimposed infiltrate. There is no demonstrated pleural abnormality. Sternal cerclage wires and vascular clips are present from a prior sternotomy and coronary artery bypass graft procedure (CABG). Normal mediastinum and patricia. Normal visualized pulmonary arteries. Normal visualized aortic arch and descending thoracic aorta. Normal visualized thoracic spine. Normal visualized ribs, clavicles, and shoulders. There is no demonstrated abnormality of the visualized soft tissue structures of the upper abdomen. RAD/Chest 1 View (Portable) IMPRESSION: All the support tubes are in good position. Progressive reticular infiltrate in the peripheral aspect of the right upper lobe and right lower lobe. This may represent progressive fibrosis versus superimposed patchy infiltrates. Electronically Signed: Terrance Miller MD at 12:38 EST ,
[2022-04-12 11:21] LABS: Bedside Glucose > 500 mg/dL (74-106)
[2022-04-12 11:23] LABS: Alcohol, Blood (Medical)-Serum < 3.0 mg/dL
[2022-04-12 11:29] LABS: Magnesium 4.3 mg/dL (1.6-2.6)
[2022-04-12] MEDS: Lactated Ringers 1,000 ML 999 ML IV (11:47)
[2022-04-12] MEDS: 0.9% Normal Saline 1,000 ML 999 ML IV (11:53)
--- NOTE | 2022-04-12 12:04 | PCM.HP.STD ---
HPI - General General Date of Admission: 04/12/22 Date of Service: 04/12/22 Chief Complaint: Cardiopulmonary arrest HPI Narrative NAYELI JOSE, is a 61 M with multiple comorbidities including coronary artery disease status post CABG in September 2021, diabetes mellitus type 2, hypertension previous history of osteomyelitis involving the left lower extremity who was brought to the emergency department with cardiopulmonary arrest. Per patient's who provided the history patient had reported not feeling well for the past couple of days. The did call the EMS squad. Patient was apparently having a conversation with the EMS squad when he went into cardiopulmonary arrest. Was successfully resuscitated using ACLS with ROSC and transferred to the emergency department. Patient was intubated in the ED had a central line placed. Initial diagnostic data reviewed blood glucose level of almost 1800 with lactic acid level of 24. Patient was also found without pulse involving the left lower extremity blood pressure was in the 50s. An assessment of multiorgan dysfunction was made admitted to the intensive care unit for further management [facility] Medical History (Updated 04/12/22 @ 12:[address] Alistair Montenegro MD) Amputated toe of left foot (08/2021) Arthritis Atherosclerotic heart disease of [place] coronary artery without angina pectoris Back pain due to injury Chronic cough Diabetes Diabetes type 2, uncontrolled Diabetic infection of left foot DKA (diabetic ketoacidoses) Essential hypertension Former tobacco use Hyperlipidemia Ischemic cardiomyopathy Non-pressure chronic ulcer of other part of left foot with fat layer exposed Non-pressure chronic ulcer of other part of left foot with necrosis of bone Osteomyelitis of foot, left, acute Osteomyelitis of left foot Peripheral vascular occlusive disease Restless legs Type 2 diabetes mellitus with diabetic polyneuropathy Uncontrolled type 2 diabetes mellitus Home Medications empagliflozin 25 mg tablet (Jardiance) 25 mg PO DAILY DM 05/25/21 [History Last Taken 05/25/21] gabapentin 800 mg tablet 800 mg PO TID pain 05/25/21 [History Last Taken 07/31/21] metformin 1,000 mg tablet 1,000 mg PO BID DM 05/25/21 [History Last Taken 05/25/21] semaglutide 1 mg/dose (4 mg/3 mL) subcutaneous pen injector (Ozempic) 1 mg subcut FR DM 05/25/21 [History Last Taken 05/19/21] trazodone 100 mg tablet 100 mg PO QHS sleep 05/25/21 [History Last Taken 05/24/21] clopidogrel 75 mg tablet (Plavix) 75 mg PO DAILY blood thinner 07/11/21 [History Last Taken Unknown] acetaminophen 325 mg tablet (Tylenol) 650 mg PO Q6H PRN PRN Pain Score 1-10/Temp > 100.7 F #0 tabs 10/02/21 [Rx Last Taken Unknown] glipizide 5 mg tablet 5 mg PO BID 10/06/21 [History Last Taken Unknown] metoprolol succinate 25 mg tablet,extended release 24 hr 25 mg PO DAILY #90 tabs 10/23/21 [Rx Last Taken Unknown] atorvastatin 80 mg tablet 80 mg PO QHS #90 tabs 01/02/22 [Rx Last Taken Unknown] aspirin 81 mg tablet,delayed release 81 mg PO DAILY #90 tabs 01/17/22 [Rx Last Taken Unknown] lisinopril 2.5 mg tablet 2.5 mg PO DAILY #90 tabs 01/17/22 [Rx Last Taken Unknown] Allergy/AdvReac Type Severity Reaction Status Date / Time No Known Allergies Allergy Verified 01/17/22 15:38 Family History Mother Hypertension CVA (cerebral vascular accident) Diabetes Surgical History H/O coronary artery bypass surgery (08/31/21) H/O spinal fusion History of angioplasty of peripheral vessel (08/2021) History of left heart catheterization (07/31/21) Social History household members: spouse Smoking Status: Former smoker how long ago did patient quit smoking: Quit 1987, smoked 1.5 ppd since teen. alcohol intake: never substance use type: does not use ROS Review of Systems ROS Unobtainable: due to endotracheal tube Vital Signs Vital Signs Vital Signs: 04/12/22 10:10 04/12/22 10:00 04/12/22 10:41 Temperature 96.5 F L Temperature Source Core Pulse Rate 100 Pulse Rate [8] 117 H Respiratory Rate 14 Respiratory Rate [8] 22 H Blood Pressure 110/78 Blood Pressure [8] 170/111 H Blood Pressure Mean 88 Blood Pressure Source Pulse Ox 94 Oxygen Delivery Method Ambu-Bag Mechanical Ventilator Oxygen Flow Rate (L/min) 15 Fraction of Inspired Oxygen (FIO2) 100 04/12/22 10:44 04/12/22 10:45 04/12/22 10:49 Temperature 96.8 F L 96.8 F L 96.8 F L Temperature Source Core Core Core Pulse Rate 105 H 106 H 105 H Pulse Rate [8] Respiratory Rate 16 14 14 Respiratory Rate [8] Blood Pressure 110/78 72/60 L 72/60 L Blood Pressure [8] Blood Pressure Mean 88 64 64 Blood Pressure Source Pulse Ox 94 100 96 Oxygen Delivery Method Mechanical Ventilator Mechanical Ventilator Mechanical Ventilator Oxygen Flow Rate (L/min) Fraction of Inspired Oxygen (FIO2) 04/12/22 10:20 04/12/22 10:58 04/12/22 11:07 Temperature 96.9 F L Temperature Source Core Pulse Rate 106 H 97 Pulse Rate [8] Respiratory Rate 14 17 Respiratory Rate [8] Blood Pressure 63/48 L 63/48 L Blood Pressure [8] Blood Pressure Mean 53 53 Blood Pressure Source Monitor Pulse Ox Oxygen Delivery Method Oxygen Flow Rate (L/min) Fraction of Inspired Oxygen (FIO2) 100 04/12/22 11:15 04/12/22 11:33 04/12/22 11:48 Temperature 96.8 F L Temperature Source Core Pulse Rate 92 85 86 Pulse Rate [8] Respiratory Rate 114 H 23 H 16 Respiratory Rate [8] Blood Pressure 61/51 L 53/43 L 64/51 L Blood Pressure [8] Blood Pressure Mean 54 46 55 Blood Pressure Source Pulse Ox 100 100 100 Oxygen Delivery Method Mechanical Ventilator Mechanical Ventilator Mechanical Ventilator Oxygen Flow Rate (L/min) Fraction of Inspired Oxygen (FIO2) 04/12/22 11:49 Temperature 96.1 F L Temperature Source Core Pulse Rate 82 Pulse Rate [8] Respiratory Rate 15 Respiratory Rate [8] Blood Pressure 64/51 L Blood Pressure [8] Blood Pressure Mean 55 Blood Pressure Source Pulse Ox 100 Oxygen Delivery Method Mechanical Ventilator Oxygen Flow Rate (L/min) Fraction of Inspired Oxygen (FIO2) Weight Weight: 77.6 kg Body Mass Index (BMI) 23.2 Physical Exam Narrative GENERAL: Unresponsive on the vent HEENT: Pupils nonreactive to light EYES; Anicteric, Normal Conjunctiva NECK; supple, normal thyroid, RESPIRATORY: Diminished to auscultation CARDIOVASCULAR: Regular S1 S2, GI: soft, normoactive bowel sounds, : No Renal angle tenderness; EXTREMITIES: Left lower extremity cool to touch with an open wound on the medial aspect of the left big toe MUSCULOSKELETAL: no muscle wasting NEURO: Unresponsive SKIN: Mottling of both lower extremities PSYCH; unresponsive Results Lab / Micro Data Result Diagrams: 04/12/22 10:05 04/12/22 10:05 Labs: Laboratory Results - last 24 hr 04/12/22 10:05: WBC 14.0 H, RBC 5.69, Hgb 13.6, Hct 54.5 H, MCV 95.8 H, MCH 23.9 L, MCHC 25.0 L, RDW Std Deviation 61.2 H, RDW Coeff of Imtiaz 17.8 H, Plt Count 423, MPV 11.7, Immature Gran % (Auto) 1.300 H, Neut % (Auto) 84.6 H, Lymph % (Auto) 7.6 L, [place] % (Auto) 6.0, Eos % (Auto) 0.1, Baso % (Auto) 0.4, Absolute Neuts (auto) 11.9 H, Absolute Lymphs (auto) 1.07, Nucleated RBC % 0 04/12/22 10:05: PT 15.1 H, INR 1.2, APTT 26.8 04/12/22 10:05: Sodium 125 L, Potassium 5.0, Chloride 84 L, Carbon Dioxide 12.0 L, Anion Gap 29 H, BUN 102 H*, Creatinine 4.56 H, Estim Creat Clear Calc 19.14, Est GFR (MDRD) Af Amer 17 L, Est GFR (MDRD) Non-Af 14 L, BUN/Creatinine Ratio 22.4 H, Glucose 1958 H*, Calcium 9.7, Magnesium 4.0 H, Total Bilirubin 0.50, Direct Bilirubin 0.13, AST 24, ALT 22, Alkaline Phosphatase 125 H, Troponin I High Sens 22, Total Protein 7.8, Albumin 2.8 L, Globulin 5.0 H 04/12/22 10:05: Ethyl Alcohol < 3.0 04/12/22 10:05: Lactic Acid 7.5 H* 04/12/22 10:05: B-Natriuretic Peptide 25.4 04/12/22 10:05: Total Creatine Kinase 429 H 04/12/22 10:05: Magnesium 4.3 H 04/12/22 10:20: Urine Color Yellow, Urine Clarity Clear, Urine pH 5.0, Ur Specific [place] 1.010, Urine Protein 30 H, Urine Glucose (UA) 1000 H, Urine Ketones 5 H, Urine Occult Blood ~50 H, Urine Nitrite Negative, Urine Bilirubin Negative, Urine Urobilinogen Normal, Ur Leukocyte Esterase Negative, Urine RBC 0-5 SEEN, Urine WBC 0-5 SEEN, Ur Squamous Epith Cells 0 SEEN, Urine Bacteria 0 SEEN, Urine Mucus 0 SEEN 04/12/22 10:20: Urine Opiates Screen NEGATIVE, Urine Methadone Screen NEGATIVE, Ur Barbiturates Screen NEGATIVE, Ur Phencyclidine Scrn NEGATIVE, Ur Amphetamines Screen NEGATIVE, MDMA (Ecstasy) Screen NEGATIVE, U Benzodiazepines Scrn NEGATIVE, Urine Cocaine Screen POSITIVE H, U Cannabinoids Screen POSITIVE H, Ur Drug Screen Comment 04/12/22 10:31: POC Glucose > 500 H* ABG Data ABG results: ABG 04/12/22 04/12/22 10:32 10:59 Specimen Type MACARIO ART Sample Site R Radial R Brach pH 7.14 L* 7.11 L* Bicarbonate Actual 14.5 L 10.1 L Total CO2 16 11 Base Excess -15 L -19 L O2 Saturation 74 L 99 O2 % 100 100 ABG pCO2 42.3 31.9 L ABG pO2 50 L 172 H Octavio Test Positive N/A Respiration Rate 14 O2 Delivery Device Adult Vent ET Tube Vent Mode AC Tidal Volume 450 450 POC PEEP 5 Crit Call To/Read Back Yes Yes Blood Gas Notified Whom camp Rhythm Strip Rhythm Strip: Documented the MDM. Assessment & Plan Assessment/Plan (1) Cardiopulmonary arrest with successful resuscitation: (2) DKA (diabetic ketoacidoses): (3) Shock circulatory: (4) Acute kidney failure: PLAN: Plan Patient is a 61-year-old gentleman with multiple comorbidities admitted following cardiopulmonary arrest 1. Cardiopulmonary arrest ? Patient was successfully resuscitated using ACLS with ROSC. Subsequently admitted to the intensive care unit. Patient did receive amiodarone and was left on amiodarone drip. As part of his management serial cardiac enzymes and 2D echo ordered with consultation placed to cardiology 2. Acute hypoxic respiratory failure ? Following patient cardiopulmonary arrest. Patient was intubated in the ED. Admitted to the intensive care unit. Initial vent settings written. Consult placed to pulmonary/critical care to continue vent management 3. Shock ? Multifactorial including possible cardiogenic shock as well as possible septic shock. Patient currently receiving IV fluids per protocol started on norepinephrine admitted to the intensive care unit 4. Suspected septic shock ? From an infected left diabetic foot ulcer. Patient resuscitated with IV fluids per protocol broad-spectrum antibiotics obtain cultures sent 5. Ischemic left lower extremity ? Contributed to patient diabetic foot ulceration. Patient was started on heparin drip per protocol consult placed to vascular surgery Case discussed with Dr. Rome 6. Diabetic ketoacidosis Patient managed with IV fluids, systemic insulin BMP every 4 hours as well as correction of electrolyte abnormalities 7. Acute kidney injury ? Suspected to be secondary to ATN from patient shock. Started on IV fluids consult placed to nephrology 8. Coronary artery disease ? Status post CABG in September 2021. Serial cardiac enzymes ordered in addition to 2D echo 9. Essential hypertension ? Patient antihypertensives placed on hold in view of his shock 10. Dyslipidemia ? Patient was on atorvastatin at home currently placed on hold 11. DVT prophylaxis ? Patient is on heparin Time spent in the patient's overall evaluation,decision-making process, review of diagnostic data, adjustment of management, discussion with other providers, nursing nursing and ancillary staff involved in patient's care documentation, 75 Minutes Advance planning; per discussion with patient's family regarding his current condition as well as prognosis. Also brought up discussions of CODE STATUS and advance planning. . Did explain the various scenarios involved ( FULL CODE, DNR CCA, DNR CCA with no intubation, and DNR CC and what each meant) patient's family elected to maintain current CODE STATUS which is full code. Order was placed. Time spent on discussion 18 minutes. Charges/Coding Visit Charges Inpatient E&M: 13114 Init Hosp L3 Procedures Hospitalists Procedures: 72531 Advncd Care Plan 30 Min
--- NOTE | 2022-04-12 12:12 | EX.PCM.CONCC ---
Assessment & Plan Assessment/Plan (1) DKA (diabetic ketoacidoses): (2) Cardiopulmonary arrest with successful resuscitation: PLAN: Plan RECOMMENDATIONS: 1. DKA management per protocol with supplemental IV fluids and continuous insulin infusion. 2. Monitor serial BMP. 3. Continue vasopressor support to maintain a mean arterial pressure at or above 65 mmHg. 4. Start empiric antimicrobials and obtain blood and sputum culture. 5. Check serum acetone level. 6. Continue PPI therapy. 7. If the patient continues to require high dose Levophed, start vasopressin. IMPRESSIONS: 1. Acute hypoxemic respiratory failure/status postcardiac arrest with ROSC The patient was intubated emergently in the emergency department after he presented in an unresponsive state for airway protection. The patient did experience a cardiac arrest after being intubated with successful ROSC, following ACLS. Plan to continue current supportive measures with assist control mode of mechanical ventilation, with plans to wean FiO2 and PEEP, as tolerated, to maintain oxygen saturations at or above 90%. Follow-up arterial blood gas will be obtained. Echocardiogram is pending. 2. Undifferentiated shock Most likely multifactorial in etiology. The patient is likely hypovolemic in the setting of osmotic diuresis due to DKA. In addition, septic and cardiogenic etiologies are also a possibility. Plan to panculture the patient and start him empirically on broad-spectrum antimicrobials. Echocardiogram will be obtained. Continue amiodarone for now. 3. Diabetic ketoacidosis Plan to proceed with management per DKA protocol with aggressive fluid resuscitation and continuous insulin infusion. Continue to monitor BMP levels closely and provide electrolyte repletion, as needed. 4. Encephalopathy Most likely metabolic in etiology. However, I cannot discount the possibility of an anoxic insult, given his lack of responsiveness at the current time. He will be monitored closely for signs of neurologic recovery. In the interim, continue supportive measures as noted above. 5. Ischemic left lower extremity Vascular surgery is following to assist with medical management. 6. Acute kidney injury Most likely prerenal in etiology in the setting of numbers 2 and 3. The patient will be aggressively fluid resuscitated. In addition, vasopressor support will be continued to maintain hemodynamic stability. If the patient's renal function continues to worsen over the next 24 hours, will obtain nephrology consultation. Continue to monitor urine output for now. 7. History of ischemic cardiomyopathy/peripheral vascular disease/polysubstance dependency/diabetes mellitus Complicates care, management, recovery and prognosis. Continue management as noted above. TIME: 40 minutes of critical care time, independent of procedures, was spent addressing the patient's acute hypoxemic respiratory failure, undifferentiated shock, DKA, encephalopathy, ischemic left lower extremity, acute kidney injury, review of all data and collaboration with the care team. HPI Consult Data Date of Consult: 04/13/22 HPI Narrative Reason for Consultation: Respiratory failure HPI Narrative: The patient is a 61-year-old male, with a history as outlined below, who presented to the emergency department on April 12 after being found unresponsive by his . The patient has a known history of severe peripheral vascular disease along with a diabetic left foot ulcer, ischemic cardiomyopathy, diabetes mellitus and obstructive lung disease. His last surface echocardiogram demonstrated an ejection fraction of 30 to 35% along with stage I diastolic dysfunction. PFTs from June 2021 demonstrated a mild obstructive ventilatory impairment with preserved lung volumes and diffusing capacity. On presentation to the emergency department, the patient was initially documented to have a temperature of 96.5 ?F. He was initially noted to be normotensive. According to ED provider documentation, the patient presented with a GCS of 4 and was being bagged. Due to his underlying neurological condition, the patient was emergently intubated. Shortly after intubation, the patient experienced PEA cardiac arrest, for which ACLS was initiated. ROSC was ultimately achieved. Initial laboratory evaluation demonstrated an elevated white blood cell count to 14,000. Chemistry profile was notable for a sodium of 125, chloride of 84, bicarbonate of 12, anion gap of 29, BUN of 102 and creatinine of 4.56. Glucose was elevated at 1958 with a lactate of 7.5. Troponin was negative. Urine analysis was unrevealing. Toxicology screen was positive for cocaine and cannabinoids. Alcohol level was negative. ABG demonstrated a pH of 7.1 with a PCO2 of 32 and PO2 of 172. Subclavian central venous catheter was placed in the ED. Patchy infiltrates were noted in the right upper and lower lobes on chest imaging. The patient was ultimately placed on an amiodarone drip due to wide-complex nonsustained V. tach in the ED. The patient received supplemental IV fluid hydration and was started on a continuous insulin drip. Patient was admitted to the medical intensive care unit for further management. [facility] Medical History Amputated toe of left foot (08/2021) Arthritis Atherosclerotic heart disease of [place] coronary artery without angina pectoris Back pain due to injury Chronic cough Diabetes Diabetes type 2, uncontrolled Diabetic infection of left foot DKA (diabetic ketoacidoses) Essential hypertension Former tobacco use Hyperlipidemia Ischemic cardiomyopathy Non-pressure chronic ulcer of other part of left foot with fat layer exposed Non-pressure chronic ulcer of other part of left foot with necrosis of bone Osteomyelitis of foot, left, acute Osteomyelitis of left foot Peripheral vascular occlusive disease Restless legs Type 2 diabetes mellitus with diabetic polyneuropathy Uncontrolled type 2 diabetes mellitus Home Medications empagliflozin 25 mg tablet (Jardiance) 25 mg PO DAILY DM 05/25/21 [History Last Taken 05/25/21] gabapentin 800 mg tablet 800 mg PO TID pain 05/25/21 [History Last Taken 07/31/21] metformin 1,000 mg tablet 1,000 mg PO BID DM 05/25/21 [History Last Taken 05/25/21] semaglutide 1 mg/dose (4 mg/3 mL) subcutaneous pen injector (Ozempic) 1 mg subcut FR DM 05/25/21 [History Last Taken 04/06/22] trazodone 100 mg tablet 100 mg PO QHS sleep 05/25/21 [History Last Taken 05/24/21] clopidogrel 75 mg tablet (Plavix) 75 mg PO DAILY blood thinner 07/11/21 [History Last Taken Unknown] acetaminophen 325 mg tablet (Tylenol) 650 mg PO Q6H PRN PRN Pain Score 1-10/Temp > 100.7 F #0 tabs 10/02/21 [Rx Last Taken Unknown] glipizide 5 mg tablet 5 mg PO BID 10/06/21 [History Last Taken Unknown] metoprolol succinate 25 mg tablet,extended release 24 hr 25 mg PO DAILY #90 tabs 10/23/21 [Rx Last Taken Unknown] atorvastatin 80 mg tablet 80 mg PO QHS #90 tabs 01/02/22 [Rx Last Taken Unknown] aspirin 81 mg tablet,delayed release 81 mg PO DAILY #90 tabs 01/17/22 [Rx Last Taken Unknown] lisinopril 2.5 mg tablet 2.5 mg PO DAILY #90 tabs 01/17/22 [Rx Last Taken Unknown] Allergy/AdvReac Type Severity Reaction Status Date / Time No Known Allergies Allergy Verified 01/17/22 15:38 Family History Mother Hypertension CVA (cerebral vascular accident) Diabetes Surgical History H/O coronary artery bypass surgery (08/31/21) H/O spinal fusion History of angioplasty of peripheral vessel (08/2021) History of left heart catheterization (07/31/21) Social History household members: spouse Smoking Status: Former smoker how long ago did patient quit smoking: Quit 1987, smoked 1.5 ppd since teen. alcohol intake: never substance use type: does not use ROS Review of Systems ROS Unobtainable: due to endotracheal tube and due to mental status Physical Exam Const Constitutional Narrative: Currently nonresponsive to noxious and tactile stimulation. General Appearance: ill appearing, intubated and patient mechanically ventilated HEENT normocephalic and head/scalp atraumatic Mouth: endotracheal tube in place and OG tube in place Eyes Pupil: fixed Neck supple General: trachea midline and CVC in place Chest inspection of chest normal Resp Auscultation: diminished lung sounds; Negative for rales, rhonchi or wheezes Cardio regular rate and regular rhythm GI normal to inspection, nondistended, normoactive bowel sounds Extremity General Extremity: Negative for clubbing or edema Skin Skin Narrative: Left great toe wound with pale, cool left lower extremity General Skin Exam: mottling Lab / Micro Data Result Diagrams: 04/13/22 04:00 04/13/22 05:10 Labs: Laboratory Results - last 24 hr 04/12/22 10:05: WBC 14.0 H, RBC 5.69, Hgb 13.6, Hct 54.5 H, MCV 95.8 H, MCH 23.9 L, MCHC 25.0 L, RDW Std Deviation 61.2 H, RDW Coeff of Imtiaz 17.8 H, Plt Count 423, MPV 11.7, Immature Gran % (Auto) 1.300 H, Neut % (Auto) 84.6 H, Lymph % (Auto) 7.6 L, [place] % (Auto) 6.0, Eos % (Auto) 0.1, Baso % (Auto) 0.4, Absolute Neuts (auto) 11.9 H, Absolute Lymphs (auto) 1.07, Nucleated RBC % 0 04/12/22 10:05: PT 15.1 H, INR 1.2, APTT 26.8 04/12/22 10:05: Sodium 125 L, Potassium 5.0, Chloride 84 L, Carbon Dioxide 12.0 L, Anion Gap 29 H, BUN 102 H*, Creatinine 4.56 H, Estim Creat Clear Calc 19.14, Est GFR (MDRD) Af Amer 17 L, Est GFR (MDRD) Non-Af 14 L, BUN/Creatinine Ratio 22.4 H, Glucose 1958 H*, Calcium 9.7, Magnesium 4.0 H, Total Bilirubin 0.50, Direct Bilirubin 0.13, AST 24, ALT 22, Alkaline Phosphatase 125 H, Troponin I High Sens 22, Total Protein 7.8, Albumin 2.8 L, Globulin 5.0 H 04/12/22 10:05: Ethyl Alcohol < 3.0 04/12/22 10:05: Lactic Acid 7.5 H* 04/12/22 10:05: B-Natriuretic Peptide 25.4 04/12/22 10:05: Total Creatine Kinase 429 H 04/12/22 10:05: Magnesium 4.3 H 04/12/22 10:20: Urine Color Yellow, Urine Clarity Clear, Urine pH 5.0, Ur Specific [place] 1.010, Urine Protein 30 H, Urine Glucose (UA) 1000 H, Urine Ketones 5 H, Urine Occult Blood ~50 H, Urine Nitrite Negative, Urine Bilirubin Negative, Urine Urobilinogen Normal, Ur Leukocyte Esterase Negative, Urine RBC 0-5 SEEN, Urine WBC 0-5 SEEN, Ur Squamous Epith Cells 0 SEEN, Urine Bacteria 0 SEEN, Urine Mucus 0 SEEN 04/12/22 10:20: Urine Opiates Screen NEGATIVE, Urine Methadone Screen NEGATIVE, Ur Barbiturates Screen NEGATIVE, Ur Phencyclidine Scrn NEGATIVE, Ur Amphetamines Screen NEGATIVE, MDMA (Ecstasy) Screen NEGATIVE, U Benzodiazepines Scrn NEGATIVE, Urine Cocaine Screen POSITIVE H, U Cannabinoids Screen POSITIVE H, Ur Drug Screen Comment 04/12/22 10:31: POC Glucose > 500 H* ABG Data ABG results: ABG 04/12/22 04/12/22 10:32 10:59 Specimen Type MACARIO ART Sample Site R Radial R Brach pH 7.14 L* 7.11 L* Bicarbonate Actual 14.5 L 10.1 L Total CO2 16 11 Base Excess -15 L -19 L O2 Saturation 74 L 99 O2 % 100 100 ABG pCO2 42.3 31.9 L ABG pO2 50 L 172 H Octavio Test Positive N/A Respiration Rate 14 O2 Delivery Device Adult Vent ET Tube Vent Mode AC Tidal Volume 450 450 POC PEEP 5 Crit Call To/Read Back Yes Yes Blood Gas Notified Whom camp Rhythm Strip Rhythm Strip: Documented the MDM. Charges/Coding Procedures Hospitalists Procedures: [id number] Critial Care 1st Hr
[2022-04-12 12:23] LABS: Reflex Troponin-HS? (from REC) Y
--- NOTE | 2022-04-12 12:29 | ECHOLC_ITS ---
Reason For Study: CHF Procedure This was a limited 2D transthoracic echocardiogram. The study was technically difficult. Contrast injection was performed. Exam performed portable in ICU/CCU. Left Ventricle Normal size and thickness. The left ventricular ejection fraction is 35 %. Severe global left ventricular systolic dysfunction. Right Ventricle Normal right ventricle. Atria The left and right atria are normal. Mitral Valve The mitral valve is structurally normal. No prolapse or stenosis seen. Tricuspid Valve Normal tricuspid valve. Aortic Valve The aortic valve is not well visualized. Pulmonic Valve The pulmonic valve is not well visualized. Great Vessels The aortic root is not well visualized. Pericardium/Pleural No pericardial effusion. Medication Diluted definity 4.0ml given slow IV push to enhance endocardial definition. MMode/2D Measurements & Calculations LVIDd: 3.9 cm IVSd: 1.1 cm LVIDs: 3.2 cm LVPWd: 1.2 cm FS: 19.2 % ECHO/Echo Limited w/Contrast Interpretation Summary The left ventricular ejection fraction is 35 %. Severe global left ventricular systolic dysfunction. The study was technically difficult. Ordering Physician: Alistair Montenegro Referring Physician: Javy Alcaraz Performed By: Britney Arita, JAE, RVT
[2022-04-12 12:50] LABS: Bedside Glucose > 500 mg/dL (74-106)
[2022-04-12 13:06] LABS: Troponin-I HS 64 pg/mL (3.0-78.0)
--- NOTE | 2022-04-12 13:13 | CON.PCM.SX_ITS ---
Assessment & Plan Assessment/Plan (1) Ischemia of left lower extremity: PLAN: -known PAD with prior left popliteal/TP trunk intervention; by exam and appearance this is no longer patent and of unknown duration -most recent MODE revealed normal RLE perfusion; this exam also is compromised -most likely overall hemodynamic status contributing to bilateral poor perfusion superimposed on LLE fixed occlusive process -if he survives will assess limit status, but suspect he will progress through ischemic changes and demarcate -dont think risk/benefit supports heparin at this time -will follow HPI Consult Data Date of Consult: 04/12/22 HPI Narrative HPI Narrative: NAYELI JOSE, is a 61 M who presents in DKA, s/p cardiac arrest, intubated with return of spontaneous circulation. He has documented PAD with prior left popliteal/TP trunk angioplasty in September 2021. He was recently seen at [facility] for ongoing LLE digit wound. Prior to his cardiac arrest today LLE was noted to be cool, pale. Upon exam he remained hypotensive with SBP in 60s awaiting Levo. He is currently unresponsive on the vent with no sedation. He is apparently positive for poly-substances. [facility] Medical History Amputated toe of left foot (08/2021) Arthritis Atherosclerotic heart disease of [place] coronary artery without angina pectoris Back pain due to injury Chronic cough Diabetes Diabetes type 2, uncontrolled Diabetic infection of left foot DKA (diabetic ketoacidoses) Essential hypertension Former tobacco use Hyperlipidemia Ischemic cardiomyopathy Non-pressure chronic ulcer of other part of left foot with fat layer exposed Non-pressure chronic ulcer of other part of left foot with necrosis of bone Osteomyelitis of foot, left, acute Osteomyelitis of left foot Peripheral vascular occlusive disease Restless legs Type 2 diabetes mellitus with diabetic polyneuropathy Uncontrolled type 2 diabetes mellitus Home Medications empagliflozin 25 mg tablet (Jardiance) 25 mg PO DAILY DM 05/25/21 [History Last Taken 05/25/21] gabapentin 800 mg tablet 800 mg PO TID pain 05/25/21 [History Last Taken 07/31/21] metformin 1,000 mg tablet 1,000 mg PO BID DM 05/25/21 [History Last Taken 05/25/21] semaglutide 1 mg/dose (4 mg/3 mL) subcutaneous pen injector (Ozempic) 1 mg subcut FR DM 05/25/21 [History Last Taken 04/06/22] trazodone 100 mg tablet 100 mg PO QHS sleep 05/25/21 [History Last Taken 05/24/21] clopidogrel 75 mg tablet (Plavix) 75 mg PO DAILY blood thinner 07/11/21 [History Last Taken Unknown] acetaminophen 325 mg tablet (Tylenol) 650 mg PO Q6H PRN PRN Pain Score 1-10/Temp > 100.7 F #0 tabs 10/02/21 [Rx Last Taken Unknown] glipizide 5 mg tablet 5 mg PO BID 10/06/21 [History Last Taken Unknown] metoprolol succinate 25 mg tablet,extended release 24 hr 25 mg PO DAILY #90 tabs 10/23/21 [Rx Last Taken Unknown] atorvastatin 80 mg tablet 80 mg PO QHS #90 tabs 01/02/22 [Rx Last Taken Unknown] aspirin 81 mg tablet,delayed release 81 mg PO DAILY #90 tabs 01/17/22 [Rx Last Taken Unknown] lisinopril 2.5 mg tablet 2.5 mg PO DAILY #90 tabs 01/17/22 [Rx Last Taken Unknown] Allergy/AdvReac Type Severity Reaction Status Date / Time No Known Allergies Allergy Verified 01/17/22 15:38 Family History Mother Hypertension CVA (cerebral vascular accident) Diabetes Surgical History H/O coronary artery bypass surgery (08/31/21) H/O spinal fusion History of angioplasty of peripheral vessel (08/2021) History of left heart catheterization (07/31/21) Social History household members: spouse Smoking Status: Former smoker how long ago did patient quit smoking: Quit 1987, smoked 1.5 ppd since teen. alcohol intake: never substance use type: does not use ROS Review of Systems ROS Unobtainable: due to endotracheal tube Physical Exam Const Constitutional Narrative: Intubated on vent, unresponsive to stimuli and no spontaneous movement General Appearance: ill appearing HEENT Head and Scalp: normocephalic and atraumatic Eyes conjunctivae normal Neck no lymphadenopathy General: trachea midline Lymph Lymphatic: no lymphadenopathy noted Resp Resp Narrative: Intubated, on vent, not breathing over vent settings Cardio regular rate and regular rhythm Cardio Narrative: Monophasic DP/PT on right Absent DP/PT on left Peripheral Pulses: brachial pulses present, radial pulses present and femoral pulses present; Negative for popliteal pulses present, posterior tibial pulses present or dorsalis pedis pulses present GI non-tender and non-distended; Negative for hepatosplenomegaly Back/Spine Cervical Spine: cervical ROM normal Extremity Negative for normal capillary refill Extremity Narrative: LLE cool, pale from digits to knee with delayed capillary refill Skin Wound Narrative: left great toe wound Neuro Neuro Narrative: unable to obtain Psych Psych Narrative: unable to obtain Lab / Micro Data Result Diagrams: 04/12/22 10:05 04/12/22 10:05 Labs: Laboratory Results - last 24 hr 04/12/22 10:05: WBC 14.0 H, RBC 5.69, Hgb 13.6, Hct 54.5 H, MCV 95.8 H, MCH 23.9 L, MCHC 25.0 L, RDW Std Deviation 61.2 H, RDW Coeff of Imtiaz 17.8 H, Plt Count 423, MPV 11.7, Immature Gran % (Auto) 1.300 H, Neut % (Auto) 84.6 H, Lymph % (Auto) 7.6 L, [place] % (Auto) 6.0, Eos % (Auto) 0.1, Baso % (Auto) 0.4, Absolute Neuts (auto) 11.9 H, Absolute Lymphs (auto) 1.07, Nucleated RBC % 0 04/12/22 10:05: PT 15.1 H, INR 1.2, APTT 26.8 04/12/22 10:05: Sodium 125 L, Potassium 5.0, Chloride 84 L, Carbon Dioxide 12.0 L, Anion Gap 29 H, BUN 102 H*, Creatinine 4.56 H, Estim Creat Clear Calc 19.14, Est GFR (MDRD) Af Amer 17 L, Est GFR (MDRD) Non-Af 14 L, BUN/Creatinine Ratio 22.4 H, Glucose 1958 H*, Calcium 9.7, Magnesium 4.0 H, Total Bilirubin 0.50, Direct Bilirubin 0.13, AST 24, ALT 22, Alkaline Phosphatase 125 H, Troponin I High Sens 22, Total Protein 7.8, Albumin 2.8 L, Globulin 5.0 H 04/12/22 10:05: Ethyl Alcohol < 3.0 04/12/22 10:05: Lactic Acid 7.5 H* 04/12/22 10:05: B-Natriuretic Peptide 25.4 04/12/22 10:05: Total Creatine Kinase 429 H 04/12/22 10:05: Magnesium 4.3 H 04/12/22 10:20: Urine Color Yellow, Urine Clarity Clear, Urine pH 5.0, Ur Specific [place] 1.010, Urine Protein 30 H, Urine Glucose (UA) 1000 H, Urine Ketones 5 H, Urine Occult Blood ~50 H, Urine Nitrite Negative, Urine Bilirubin Negative, Urine Urobilinogen Normal, Ur Leukocyte Esterase Negative, Urine RBC 0-5 SEEN, Urine WBC 0-5 SEEN, Ur Squamous Epith Cells 0 SEEN, Urine Bacteria 0 SEEN, Urine Mucus 0 SEEN 04/12/22 10:20: Urine Opiates Screen NEGATIVE, Urine Methadone Screen NEGATIVE, Ur Barbiturates Screen NEGATIVE, Ur Phencyclidine Scrn NEGATIVE, Ur Amphetamines Screen NEGATIVE, MDMA (Ecstasy) Screen NEGATIVE, U Benzodiazepines Scrn NEGATIVE, Urine Cocaine Screen POSITIVE H, U Cannabinoids Screen POSITIVE H, Ur Drug Screen Comment 04/12/22 10:31: POC Glucose > 500 H* 04/12/22 12:31: POC Glucose > 500 H* 04/12/22 12:40: Troponin I High Sens 64 ABG Data ABG results: ABG 04/12/22 04/12/22 10:32 10:59 Specimen Type MACARIO ART Sample Site R Radial R Brach pH 7.14 L* 7.11 L* Bicarbonate Actual 14.5 L 10.1 L Total CO2 16 11 Base Excess -15 L -19 L O2 Saturation 74 L 99 O2 % 100 100 ABG pCO2 42.3 31.9 L ABG pO2 50 L 172 H Octavio Test Positive N/A Respiration Rate 14 O2 Delivery Device Adult Vent ET Tube Vent Mode AC Tidal Volume 450 450 POC PEEP 5 Crit Call To/Read Back Yes Yes Blood Gas Notified Whom camp Rhythm Strip Rhythm Strip: Documented the MDM. Radiology Impression Chest X-Ray 04/12/22 11:11 IMPRESSION: All the support tubes are in good position. Progressive reticular infiltrate in the peripheral aspect of the right upper lobe and right lower lobe. This may represent progressive fibrosis versus superimposed patchy infiltrates. Electronically Signed: Terrance Miller MD at 12:38 EST , Charges/Coding Visit Charges Inpatient E&M: 77980 Init Hosp L3
--- NOTE | 2022-04-12 13:20 | PCM.RX.CS ---
Consult Pharmacy has been consulted to manage selected antiobiotic: Vancomycin Type of Consult: New start Prior Doses of Antibiotics Received/Current Regimen: Medications Vancomycin HCl 2,000 mg/ (Sodium Chloride) 540 mls @ 250 mls/hr IV X1 ONE Stop: 04/12/22 16:09 Labs: Sodium 125 mmol/L (136-145) L 04/12/22 10:05 Potassium 5.0 mmol/L (3.5-5.1) 04/12/22 10:05 Chloride 84 mmol/L (98-107) L 04/12/22 10:05 Carbon Dioxide 12.0 mmol/L (21.0-32.0) L 04/12/22 10:05 Anion Gap 29 (5-15) H 04/12/22 10:05 BUN 102 mg/dL (7-18) H* 04/12/22 10:05 Creatinine 4.56 mg/dL (0.70-1.30) H 04/12/22 10:05 Est GFR (MDRD) Af Amer 17 mL/min (>60) L 04/12/22 10:05 Est GFR (MDRD) Non-Af 14 mL/min (>60) L 04/12/22 10:05 BUN/Creatinine Ratio 22.4 RATIO (10-20) H 04/12/22 10:05 Glucose 1958 mg/dL (74-106) H* 04/12/22 10:05 Weight used for dosin kg Estimated Creatinine Clearance: 16 Goal Trough: 15-20 mcg/mL Pharmacy Plan for Drug Dosing: Vancomycin 2000mg given x1, crcl currently calculated < 20 mL/min. Check random level 04/14 with labs and dose at that time. Pharmacy Service will continue to monitor and adjust dosing as required. Follow-Up Labs: Trough Vancomycin - 04/14 Random @ 0600
[2022-04-12] MEDS: HEPARIN/D5w 25,000 UNITS 25,000 UNITS/250 ML IV.SOLN. 0.1 UNITS CONT INF (14:02)
[2022-04-12] MEDS: Heparin Injection (Vial) 5,000 UNIT/ML VIAL 4000 UNIT IV (14:02)
--- NOTE | 2022-04-12 14:03 | CON.PCM.CA_ITS ---
Assessment & Plan Assessment/Plan (1) Cardiopulmonary arrest with successful resuscitation: PLAN: Likely secondary to metabolic issues with diabetic ketoacidosis, was possibly septic shock and hypotension. Continue Levophed for hemodynamic support. Maintain amiodarone infusion for now. (2) DKA (diabetic ketoacidoses): PLAN: As per critical care/internal medicine. (3) Shock circulatory: PLAN: Likely septic. Continue with hemodynamic support. IV fluids. (4) Acute kidney failure: PLAN: As per critical care. Receiving IV fluids. (5) Ischemia of left lower extremity: PLAN: Surgery on consult. (6) Coronary artery disease: PLAN: Status post CABG. Continue aspirin. HPI Consult Data Date of Consult: 04/12/22 HPI Narrative Reason for Consultation: Cardiac arrest HPI Narrative: The patient is 61-year-old gentleman with past medical history significant for coronary artery disease status post CABG last year, diabetes mellitus, hyper tension and osteomyelitis. His found him unresponsive at home and EMS was called. History is obtained from ER and admitting physicians notes. Patient presently is intubated and no family available. As per the chart, the patient apparently was responsive when the EMS got there however in route he has had a cardiac arrest. CPR was done and noninvasive ventilation commenced. As per the ER physician notes, the patient has had a PEA arrest while in the emergency room. ACLS protocol was commenced. Ventricular tachycardia is also mention. Patient's received epinephrine and bicarbonate. Patient was successfully resuscitated. Presently patient is intubated and on a ventilator. He was noted to be in shock. Diabetic ketoacidosis. Presently on amiodarone infusion as well as on Levophed infusion for hemodynamic support. [facility] Medical History Amputated toe of left foot (08/2021) Arthritis Atherosclerotic heart disease of [place] coronary artery without angina pectoris Back pain due to injury Chronic cough Diabetes Diabetes type 2, uncontrolled Diabetic infection of left foot DKA (diabetic ketoacidoses) Essential hypertension Former tobacco use Hyperlipidemia Ischemic cardiomyopathy Non-pressure chronic ulcer of other part of left foot with fat layer exposed Non-pressure chronic ulcer of other part of left foot with necrosis of bone Osteomyelitis of foot, left, acute Osteomyelitis of left foot Peripheral vascular occlusive disease Restless legs Type 2 diabetes mellitus with diabetic polyneuropathy Uncontrolled type 2 diabetes mellitus Home Medications empagliflozin 25 mg tablet (Jarsaraiance) 25 mg PO DAILY DM 05/25/21 [History Last Taken 05/25/21] gabapentin 800 mg tablet 800 mg PO TID pain 05/25/21 [History Last Taken 07/31/21] metformin 1,000 mg tablet 1,000 mg PO BID DM 05/25/21 [History Last Taken 05/25/21] semaglutide 1 mg/dose (4 mg/3 mL) subcutaneous pen injector (Ozempic) 1 mg subcut FR DM 05/25/21 [History Last Taken 04/06/22] trazodone 100 mg tablet 100 mg PO QHS sleep 05/25/21 [History Last Taken 05/24/21] clopidogrel 75 mg tablet (Plavix) 75 mg PO DAILY blood thinner 07/11/21 [History Last Taken Unknown] acetaminophen 325 mg tablet (Tylenol) 650 mg PO Q6H PRN PRN Pain Score 1-10/Temp > 100.7 F #0 tabs 10/02/21 [Rx Last Taken Unknown] glipizide 5 mg tablet 5 mg PO BID 10/06/21 [History Last Taken Unknown] metoprolol succinate 25 mg tablet,extended release 24 hr 25 mg PO DAILY #90 tabs 10/23/21 [Rx Last Taken Unknown] atorvastatin 80 mg tablet 80 mg PO QHS #90 tabs 01/02/22 [Rx Last Taken Unknown] aspirin 81 mg tablet,delayed release 81 mg PO DAILY #90 tabs 01/17/22 [Rx Last Taken Unknown] lisinopril 2.5 mg tablet 2.5 mg PO DAILY #90 tabs 01/17/22 [Rx Last Taken Unknown] Allergy/AdvReac Type Severity Reaction Status Date / Time No Known Allergies Allergy Verified 01/17/22 15:38 Family History Mother Hypertension CVA (cerebral vascular accident) Diabetes Surgical History H/O coronary artery bypass surgery (08/31/21) H/O spinal fusion History of angioplasty of peripheral vessel (08/2021) History of left heart catheterization (07/31/21) Social History household members: spouse Smoking Status: Former smoker how long ago did patient quit smoking: Quit 1987, smoked 1.5 ppd since teen. alcohol intake: never substance use type: does not use Physical Exam Narrative Intubated, sedated on ventilator. Heart sounds 1 and 2 are noted. Decreased breath sounds bilaterally. No ankle edema is noted. Risk Stratification Risk Stratification Applicable: No Objective Data Vital Signs: Vital Signs Temp Pulse Resp BP Pulse Ox O2 Del Method O2 Flow Rate 95.2 F L 92 17 73/62 L 99 Mechanical Ventilator 15 04/12/22 12:42 04/12/22 12:42 04/12/22 12:42 04/12/22 12:42 04/12/22 12:42 04/12/22 12:42 04/12/22 10:10 FiO2 100 04/12/22 10:41 Oxygen Flow Rate (L/min) 15 Oxygen Delivery Method Mechanical Ventilator Weight: 171 lb 1.259 oz Body Mass Index (BMI) 23.2 Intake & Output: Intake and Output for Last 24 Hours 04/10/22 04/11/22 04/12/22 23:59 23:59 23:59 Intake Total 2647.84 / 2647.84 Balance 2647.84 / 2647.84 Lab / Micro Data Result Diagrams: 04/12/22 10:05 04/12/22 10:05 Labs: Laboratory Results - last 24 hr 04/12/22 10:05: WBC 14.0 H, RBC 5.69, Hgb 13.6, Hct 54.5 H, MCV 95.8 H, MCH 23.9 L, MCHC 25.0 L, RDW Std Deviation 61.2 H, RDW Coeff of Imtiaz 17.8 H, Plt Count 423, MPV 11.7, Immature Gran % (Auto) 1.300 H, Neut % (Auto) 84.6 H, Lymph % (Auto) 7.6 L, [place] % (Auto) 6.0, Eos % (Auto) 0.1, Baso % (Auto) 0.4, Absolute Neuts (auto) 11.9 H, Absolute Lymphs (auto) 1.07, Nucleated RBC % 0 04/12/22 10:05: PT 15.1 H, INR 1.2, APTT 26.8 04/12/22 10:05: Sodium 125 L, Potassium 5.0, Chloride 84 L, Carbon Dioxide 12.0 L, Anion Gap 29 H, BUN 102 H*, Creatinine 4.56 H, Estim Creat Clear Calc 19.14, Est GFR (MDRD) Af Amer 17 L, Est GFR (MDRD) Non-Af 14 L, BUN/Creatinine Ratio 22.4 H, Glucose 1958 H*, Calcium 9.7, Magnesium 4.0 H, Total Bilirubin 0.50, Direct Bilirubin 0.13, AST 24, ALT 22, Alkaline Phosphatase 125 H, Troponin I High Sens 22, Total Protein 7.8, Albumin 2.8 L, Globulin 5.0 H 04/12/22 10:05: Ethyl Alcohol < 3.0 04/12/22 10:05: Lactic Acid 7.5 H* 04/12/22 10:05: B-Natriuretic Peptide 25.4 04/12/22 10:05: Total Creatine Kinase 429 H 04/12/22 10:05: Magnesium 4.3 H 04/12/22 10:20: Urine Color Yellow, Urine Clarity Clear, Urine pH 5.0, Ur Specific [place] 1.010, Urine Protein 30 H, Urine Glucose (UA) 1000 H, Urine Ketones 5 H, Urine Occult Blood ~50 H, Urine Nitrite Negative, Urine Bilirubin Negative, Urine Urobilinogen Normal, Ur Leukocyte Esterase Negative, Urine RBC 0-5 SEEN, Urine WBC 0-5 SEEN, Ur Squamous Epith Cells 0 SEEN, Urine Bacteria 0 SEEN, Urine Mucus 0 SEEN 04/12/22 10:20: Urine Opiates Screen NEGATIVE, Urine Methadone Screen NEGATIVE, Ur Barbiturates Screen NEGATIVE, Ur Phencyclidine Scrn NEGATIVE, Ur Amphetamines Screen NEGATIVE, MDMA (Ecstasy) Screen NEGATIVE, U Benzodiazepines Scrn NEGATIVE, Urine Cocaine Screen POSITIVE H, U Cannabinoids Screen POSITIVE H, Ur Drug Screen Comment 04/12/22 10:31: POC Glucose > 500 H* 04/12/22 12:31: POC Glucose > 500 H* 04/12/22 12:40: Troponin I High Sens 64 ABG Data ABG results: ABG 04/12/22 04/12/22 10:32 10:59 Specimen Type MACARIO ART Sample Site R Radial R Brach pH 7.14 L* 7.11 L* Bicarbonate Actual 14.5 L 10.1 L Total CO2 16 11 Base Excess -15 L -19 L O2 Saturation 74 L 99 O2 % 100 100 ABG pCO2 42.3 31.9 L ABG pO2 50 L 172 H Octavio Test Positive N/A Respiration Rate 14 O2 Delivery Device Adult Vent ET Tube Vent Mode AC Tidal Volume 450 450 POC PEEP 5 Crit Call To/Read Back Yes Yes Blood Gas Notified Whom camp Rhythm Strip Rhythm Strip: Documented the MDM. Cardiology Labs/Tests 04/12/22 10:05: WBC 14.0 H, RBC 5.69, Hgb 13.6, Hct 54.5 H, MCV 95.8 H, MCH 23.9 L, MCHC 25.0 L, Plt Count 423, MPV 11.7, Immature Gran % (Auto) 1.300 H, Neut % (Auto) 84.6 H, Lymph % (Auto) 7.6 L, [place] % (Auto) 6.0, Eos % (Auto) 0.1, Baso % (Auto) 0.4, Absolute Neuts (auto) 11.9 H, Nucleated RBC % 0 04/12/22 10:05: PT 15.1 H, INR 1.2, APTT 26.8 04/12/22 10:05: Sodium 125 L, Potassium 5.0, Chloride 84 L, Carbon Dioxide 12.0 L, Anion Gap 29 H, BUN 102 H*, Creatinine 4.56 H, Est GFR (MDRD) Af Amer 17 L, Est GFR (MDRD) Non-Af 14 L, BUN/Creatinine Ratio 22.4 H, Glucose 1958 H*, Calcium 9.7, Magnesium 4.0 H, Total Bilirubin 0.50, Direct Bilirubin 0.13 04/12/22 10:05: Lactic Acid 7.5 H* 04/12/22 10:05: B-Natriuretic Peptide 25.4 04/12/22 10:05: Magnesium 4.3 H 04/12/22 10:20: Urine Color Yellow, Urine Clarity Clear, Urine pH 5.0, Ur Specific [place] 1.010, Urine Protein 30 H, Urine Glucose (UA) 1000 H, Urine Ketones 5 H, Urine Occult Blood ~50 H, Urine Nitrite Negative, Urine Bilirubin Negative, Urine Urobilinogen Normal, Ur Leukocyte Esterase Negative, Urine RBC 0-5 SEEN, Urine WBC 0-5 SEEN 04/12/22 10:32: pH 7.14 L*, Bicarbonate Actual 14.5 L, Base Excess -15 L, O2 Saturation 74 L, ABG pCO2 42.3, ABG pO2 50 L, Octavio Test Positive 04/12/22 10:59: pH 7.11 L*, Bicarbonate Actual 10.1 L, Base Excess -19 L, O2 Saturation 99, ABG pCO2 31.9 L, ABG pO2 172 H, Octavio Test N/A Rhythm: EKG: ECHO: Stress Test: Cardiac Cath: PCI: CT Surgery: Holter monitor: EPS: PPM: CXR: Chest CT Scan: Radiography Diagnostic Testing: Radiology Impression Chest X-Ray 04/12/22 11:11 IMPRESSION: All the support tubes are in good position. Progressive reticular infiltrate in the peripheral aspect of the right upper lobe and right lower lobe. This may represent progressive fibrosis versus superimposed patchy infiltrates. Electronically Signed: Terrance Miller MD at 12:38 EST ,
[2022-04-12 14:04] LABS: Anion Gap 24 (5-15); BUN 98 mg/dL (7-18); BUN/Creat Ratio 22.9 RATIO (10-20); Calcium,Total 9.1 mg/dL (8.5-10.1); Chloride 98 mmol/L (98-107); Creatinine, Serum 4.28 mg/dL (0.70-1.30); EST Glomerular Filtration Rate 15 mL/min (>60); Est Glom Filt Rate - Afr Amer 18 mL/min (>60); Glucose 1621 mg/dL (74-106); Potassium 3.9 mmol/L (3.5-5.1); Sodium Level 136 mmol/L (136-145)
[2022-04-12] MEDS: 0.9% Normal Saline 1,000 ML 500 ML IV ×4 (14:05→20:34)
--- NOTE | 2022-04-12 14:18 | CPS ---
CRITICAL MEL CROWLEY, DR. PENA AWARE
[2022-04-12 14:23] LABS: Reflex Lactate? Y
[2022-04-12 15:02] LABS: Hemoglobin A1c > 14.0 % (3.8-5.6)
[2022-04-12 15:06] LABS: Glucose 1586 mg/dL (74-106)
[2022-04-12 15:53] LABS: Lactic Acid 6.3 mmol/L (0.4-1.9)
--- NOTE | 2022-04-12 16:05 | CHAPLAIN ---
Type of Pastoral Visit _x__ Initial Visit ___ Follow-up Visit ___ On-call Visit ___ General Patient Visit ___ Spiritual Assessment ___ Family Conference ___ Bereavement ___ Rapid Response ___ Code Blue ___ Other (describe below) Pastoral Care Referral From ___ Patient ___ Family _x__ Nurse ___ Physician ___ Farm Crops Teacher ___ Senior Science Consultant ___ Other (describe below) Sacrament/Intervention _x__ Active listening ___ Anointing ___ Taoism ___ Bereavement ___ Communion ___ Theresa exploration ___ ___ Life review _x__ Prayer ___ Reconciliation ___ Sacrament of Sick _x__ Supportive presence ___ Wedding ___ Other (describe below) Pastoral Comments met with spouse of patient who is not on vent after a code blue this morning in ED; offer of presence and support, gave time for spouse to explain situation and her worries or fears; spouse states being more hopeful now as pt is in ICU and alive; spouse has called father of pt to come to hospital and be with her; spouse welcomes prayer support and time to be available;
[2022-04-12 16:22] LABS: Anion Gap 23 (5-15); BUN 94 mg/dL (7-18); BUN/Creat Ratio 21.8 RATIO (10-20); Calcium,Total 8.8 mg/dL (8.5-10.1); Chloride 103 mmol/L (98-107); Creatinine, Serum 4.31 mg/dL (0.70-1.30); EST Glomerular Filtration Rate 15 mL/min (>60); Est Glom Filt Rate - Afr Amer 18 mL/min (>60); Estimated Creatinine Clearance 17.85 ml/min; Glucose 1453 mg/dL (74-106); Magnesium 3.4 mg/dL (1.6-2.6); Potassium 4.4 mmol/L (3.5-5.1); Sodium Level 140 mmol/L (136-145)
[2022-04-12 16:39] LABS: M R Staph aureus DNA By PCR Negative (Negative); Probe Check PASS; Specimen Processing Control PASS
[2022-04-12] MEDS: Amiodarone 360 MG in Dextrose 5% Viaflo Bag 192.8 ML 16.7 MG CONT INF (16:39)
--- NOTE | 2022-04-12 16:39 | CON.PCM.RE_ITS ---
Assessment & Plan Assessment/Plan (1) DKA (diabetic ketoacidoses): (2) DM hyperosmolar coma, type 2: (3) Acute uremia: (4) Acute kidney failure: PLAN: normal baseline. In severe septic shock, multiple pressors. Hyperglycemia, lactic acidosis. currently on insulin drip. Not much urine output. continue fluid resuscitation. if no improvement may need [employer]. dw ICU staff. HPI Consult Data Date of Consult: 04/12/22 HPI Narrative Reason for Consultation: DARON HPI Narrative: NAYELI JOSE, is a 61 M who presents to hospital with cardiac arrest. renal consulted in view of DARON, acidosis. History of diabetes, LE wound, follows with wound centre. currently in severe septic shock, multiple pressors, lactic acidosis, Hyperglycemia. [facility] Medical History Amputated toe of left foot (08/2021) Arthritis Atherosclerotic heart disease of [place] coronary artery without angina pectoris Back pain due to injury Chronic cough Diabetes Diabetes type 2, uncontrolled Diabetic infection of left foot DKA (diabetic ketoacidoses) Essential hypertension Former tobacco use Hyperlipidemia Ischemic cardiomyopathy Non-pressure chronic ulcer of other part of left foot with fat layer exposed Non-pressure chronic ulcer of other part of left foot with necrosis of bone Osteomyelitis of foot, left, acute Osteomyelitis of left foot Peripheral vascular occlusive disease Restless legs Type 2 diabetes mellitus with diabetic polyneuropathy Uncontrolled type 2 diabetes mellitus Home Medications empagliflozin 25 mg tablet (Jardiance) 25 mg PO DAILY DM 05/25/21 [History Last Taken 05/25/21] gabapentin 800 mg tablet 800 mg PO TID pain 05/25/21 [History Last Taken 07/31/21] metformin 1,000 mg tablet 1,000 mg PO BID DM 05/25/21 [History Last Taken 05/25/21] semaglutide 1 mg/dose (4 mg/3 mL) subcutaneous pen injector (Ozempic) 1 mg subcut FR DM 05/25/21 [History Last Taken 04/06/22] trazodone 100 mg tablet 100 mg PO QHS sleep 05/25/21 [History Last Taken 05/24/21] clopidogrel 75 mg tablet (Plavix) 75 mg PO DAILY blood thinner 07/11/21 [History Last Taken Unknown] acetaminophen 325 mg tablet (Tylenol) 650 mg PO Q6H PRN PRN Pain Score 1-10/Temp > 100.7 F #0 tabs 10/02/21 [Rx Last Taken Unknown] glipizide 5 mg tablet 5 mg PO BID 10/06/21 [History Last Taken Unknown] metoprolol succinate 25 mg tablet,extended release 24 hr 25 mg PO DAILY #90 tabs 10/23/21 [Rx Last Taken Unknown] atorvastatin 80 mg tablet 80 mg PO QHS #90 tabs 01/02/22 [Rx Last Taken Unknown] aspirin 81 mg tablet,delayed release 81 mg PO DAILY #90 tabs 01/17/22 [Rx Last Taken Unknown] lisinopril 2.5 mg tablet 2.5 mg PO DAILY #90 tabs 01/17/22 [Rx Last Taken Unknown] Allergy/AdvReac Type Severity Reaction Status Date / Time No Known Allergies Allergy Verified 01/17/22 15:38 Family History Mother Hypertension CVA (cerebral vascular accident) Diabetes Surgical History H/O coronary artery bypass surgery (08/31/21) H/O spinal fusion History of angioplasty of peripheral vessel (08/2021) History of left heart catheterization (07/31/21) Social History household members: spouse Smoking Status: Former smoker how long ago did patient quit smoking: Quit 1987, smoked 1.5 ppd since teen. alcohol intake: never substance use type: does not use ROS ROS Narrative Unable to be obtained Physical Exam Narrative Intubated no obvious distress no pallor no icterus no JVD s1s2 no murmurs lungs clear abdomen soft no organomegaly no edema no cyanosis huizar + Lab / Micro Data Result Diagrams: 04/12/22 10:05 04/12/22 15:40 Labs: Laboratory Results - last 24 hr 04/12/22 10:05: WBC 14.0 H, RBC 5.69, Hgb 13.6, Hct 54.5 H, MCV 95.8 H, MCH 23.9 L, MCHC 25.0 L, RDW Std Deviation 61.2 H, RDW Coeff of Imtiaz 17.8 H, Plt Count 423, MPV 11.7, Immature Gran % (Auto) 1.300 H, Neut % (Auto) 84.6 H, Lymph % (Auto) 7.6 L, [place] % (Auto) 6.0, Eos % (Auto) 0.1, Baso % (Auto) 0.4, Absolute Neuts (auto) 11.9 H, Absolute Lymphs (auto) 1.07, Nucleated RBC % 0 04/12/22 10:05: PT 15.1 H, INR 1.2, APTT 26.8 04/12/22 10:05: Sodium 125 L, Potassium 5.0, Chloride 84 L, Carbon Dioxide 12.0 L, Anion Gap 29 H, BUN 102 H*, Creatinine 4.56 H, Estim Creat Clear Calc 19.14, Est GFR (MDRD) Af Amer 17 L, Est GFR (MDRD) Non-Af 14 L, BUN/Creatinine Ratio 22.4 H, Glucose 1958 H*, Calcium 9.7, Magnesium 4.0 H, Total Bilirubin 0.50, Direct Bilirubin 0.13, AST 24, ALT 22, Alkaline Phosphatase 125 H, Troponin I High Sens 22, Total Protein 7.8, Albumin 2.8 L, Globulin 5.0 H 04/12/22 10:05: Ethyl Alcohol < 3.0 04/12/22 10:05: Lactic Acid 7.5 H* 04/12/22 10:05: B-Natriuretic Peptide 25.4 04/12/22 10:05: Total Creatine Kinase 429 H 04/12/22 10:05: Magnesium 4.3 H 04/12/22 10:05: Hemoglobin A1c > 14.0 H 04/12/22 10:20: Urine Color Yellow, Urine Clarity Clear, Urine pH 5.0, Ur Specific [place] 1.010, Urine Protein 30 H, Urine Glucose (UA) 1000 H, Urine Ketones 5 H, Urine Occult Blood ~50 H, Urine Nitrite Negative, Urine Bilirubin Negative, Urine Urobilinogen Normal, Ur Leukocyte Esterase Negative, Urine RBC 0-5 SEEN, Urine WBC 0-5 SEEN, Ur Squamous Epith Cells 0 SEEN, Urine Bacteria 0 SEEN, Urine Mucus 0 SEEN 04/12/22 10:20: Urine Opiates Screen NEGATIVE, Urine Methadone Screen NEGATIVE, Ur Barbiturates Screen NEGATIVE, Ur Phencyclidine Scrn NEGATIVE, Ur Amphetamines Screen NEGATIVE, MDMA (Ecstasy) Screen NEGATIVE, U Benzodiazepines Scrn NEGA TIVE, Urine Cocaine Screen POSITIVE H, U Cannabinoids Screen POSITIVE H, Ur Drug Screen Comment 04/12/22 10:31: POC Glucose > 500 H* 04/12/22 12:31: POC Glucose > 500 H* 04/12/22 12:40: Troponin I High Sens 64 04/12/22 13:40: Sodium 136, Potassium 3.9, Chloride 98, Carbon Dioxide 14.0 L, Anion Gap 24 H, BUN 98 H, Creatinine 4.28 H, Estim Creat Clear Calc 20.40, Est GFR (MDRD) Af Amer 18 L, Est GFR (MDRD) Non-Af 15 L, BUN/Creatinine Ratio 22.9 H , Glucose 1621 H*, Calcium 9.1 04/12/22 13:55: Acetone Level SMALL H 04/12/22 14:40: Glucose 1586 H* 04/12/22 15:00: Lactic Acid 6.3 H* 04/12/22 15:40: Sodium 140, Potassium 4.4, Chloride 103, Carbon Dioxide 14.0 L, Anion Gap 23 H, BUN 94 H, Creatinine 4.31 H, Estim Creat Clear Calc 17.85, Est GFR (MDRD) Af Amer 18 L, Est GFR (MDRD) Non-Af 15 L, BUN/Creatinine Ratio 21.8 H , Glucose 1453 H*, Calcium 8.8, Magnesium 3.4 H Micro: Microbiology 04/12/22 14:00 Urine Catheter - Catheter Streptococcus pneumoniae Antigen (M - Final 04/12/22 14:00 Urine Catheter - Huizar Legionella Antigen - Final ABG Data ABG results: ABG 04/12/22 04/12/22 10:32 10:59 Specimen Type MACARIO ART Sample Site R Radial R Brach pH 7.14 L* 7.11 L* Bicarbonate Actual 14.5 L 10.1 L Total CO2 16 11 Base Excess -15 L -19 L O2 Saturation 74 L 99 O2 % 100 100 ABG pCO2 42.3 31.9 L ABG pO2 50 L 172 H Octavio Test Positive N/A Respiration Rate 14 O2 Delivery Device Adult Vent ET Tube Vent Mode AC Tidal Volume 450 450 POC PEEP 5 Crit Call To/Read Back Yes Yes Blood Gas Notified Whom camp Rhythm Strip Rhythm Strip: Documented the MDM. Radiology Impression Chest X-Ray 04/12/22 11:11 IMPRESSION: All the support tubes are in good position. Progressive reticular infiltrate in the peripheral aspect of the right upper lobe and right lower lobe. This may represent progressive fibrosis versus superimposed patchy infiltrates. Electronically Signed: Terrance Miller MD at 12:38 EST , Echocardiogram 04/12/22 12:29 Interpretation Summary The left ventricular ejection fraction is 35 %. Severe global left ventricular systolic dysfunction. The study was technically difficult. Ordering Physician: Alistair Montenegro Referring Physician: Javy Alcaraz Performed By: Britney Arita, RDCS, RVT
[2022-04-12 16:59] LABS: Glucose 1394 mg/dL (74-106)
[2022-04-12] MEDS: Hydrocortisone Sod Succinate 100 MG/2 ML Vial 50 MG IV (17:09)
[2022-04-12] MEDS: 0.9% Saline Lock 10 ML Syringe IV ×4 (17:09→22:52)
[2022-04-12 17:32] LABS: Hemoglobin 11.1 g/dL (13.0-16.5); Mean Corp Hgb Conc 27.8 g/dL (32-36); Mean Corpuscular Hgb 23.6 pg (27.0-32.0); Mean Corpuscular Volume 85.1 fL (80-94); Mean Platelet Vol. 10.7 fl (6.2-12.0); Platelet Count 327 K/mm3 (150-450); RBC Distribution Width CV 17.4 % (11.6-14.6); RBC Distribution Width SD 53.8 fl (35.1-43.9); White Blood Count 13.9 K/mm3 (4.4-11.0)
[2022-04-12 17:49] LABS: Glucose 1281 mg/dL (74-106)
[2022-04-12 18:31] LABS: Troponin-I HS 440 pg/mL (3.0-78.0)
[2022-04-12 19:00] LABS: Glucose 1152 mg/dL (74-106)
[2022-04-12] MEDS: Phenylephrine 40 mg/250 mL 0.9% NS 33.8 MG CONT INF (19:40)
[2022-04-12 20:21] LABS: Base Excess -19 mmol/L (-2 to +2); Bicarbonate 10.3 mmol/L (22-26); Blood Gas Specimen Type ART; FI02 50; Mode AC; O2 Delivery Device Adult Vent; PEEP 5; PO2 73 mmHG (75-100); RR 14; SITE R Brach; SO2 89 % (95-99); Total Carbon Dioxide 11 mmol/L; Vt 450; pCO2 31.9 mmHg (35-45); pH 7.12 (7.35-7.45)
[2022-04-12 20:28] LABS: Partial Thromboplast Time 99.3 Seconds (24.1-36.2)
[2022-04-12] MEDS: Sodium Bicarbonate 8.4% 50 ML Syringe 50 MEQ IV ×2 (20:33→20:34)
[2022-04-12 20:37] LABS: Phosphorus 6.9 mg/dL (2.5-4.9)
[2022-04-12 20:42] LABS: Anion Gap 19 (5-15); BUN 92 mg/dL (7-18); BUN/Creat Ratio 22.9 RATIO (10-20); Calcium,Total 8.1 mg/dL (8.5-10.1); Chloride 111 mmol/L (98-107); Creatinine, Serum 4.02 mg/dL (0.70-1.30); EST Glomerular Filtration Rate 16 mL/min (>60); Est Glom Filt Rate - Afr Amer 20 mL/min (>60); Estimated Creatinine Clearance 19.14 ml/min; Glucose 1039 mg/dL (74-106); Potassium 5.2 mmol/L (3.5-5.1); Sodium Level 144 mmol/L (136-145)
[2022-04-12] MEDS: Chlorhexidine 15 ML PO (21:28)
[2022-04-12 21:46] LABS: Glucose 976 mg/dL (74-106)
[2022-04-12 22:26] LABS: Bedside Glucose > 500 mg/dL (74-106)
[2022-04-12 22:26] LABS: Bedside Glucose > 500 mg/dL (74-106)
[2022-04-12 22:31] LABS: Glucose 897 mg/dL (74-106)
--- NOTE | 2022-04-12 23:08 | NURSING ---
Pt's left foot removed from heel protector; whitened pressure areas noted where eggshell foam was in contact w/skin; wound cleansed w/iodine solution after noting that distal tip of first metatarsal was protruding from wound opening, dry sterile gauze and ABD pad placed over wound and secured w/2 RICHELLE wrap using minimal compression. No drng, no odor noted at site. Foot placed back in heel protector loosely.
[2022-04-12 23:21] LABS: Glucose 839 mg/dL (74-106)
[2022-04-13] VITALS (30 sets, daily range): BP systolic 57–95; BP diastolic 46–77; PULSE 85–104; RESP 14–29; TEMP 37.7–38.4; O2SAT 82–96
[2022-04-13] MEDS: 0.9% Normal Saline 1,000 ML 999 ML IV ×2 (00:10→04:02)
[2022-04-13] MEDS: Hydrocortisone Sod Succinate 100 MG/2 ML Vial IV ×3 (00:25→11:15)
[2022-04-13] MEDS: Phenylephrine 40 mg/250 mL 0.9% NS 67.5 MG CONT INF ×4 (00:26→11:15)
[2022-04-13 00:31] LABS: Anion Gap 15 (5-15); BUN 88 mg/dL (7-18); BUN/Creat Ratio 21.8 RATIO (10-20); Calcium,Total 7.6 mg/dL (8.5-10.1); Chloride 115 mmol/L (98-107); Creatinine, Serum 4.03 mg/dL (0.70-1.30); EST Glomerular Filtration Rate 16 mL/min (>60); Est Glom Filt Rate - Afr Amer 20 mL/min (>60); Estimated Creatinine Clearance 19.09 ml/min; Glucose 784 mg/dL (74-106); Potassium 5.5 mmol/L (3.5-5.1); Sodium Level 148 mmol/L (136-145)
[2022-04-13 01:29] LABS: Glucose 717 mg/dL (74-106)
[2022-04-13] MEDS: 0.45% Normal Saline 1,000 ML 150 ML IV (01:30)
[2022-04-13 03:26] LABS: Glucose 574 mg/dL (74-106)
[2022-04-13] MEDS: Amiodarone 360 MG in Dextrose 5% Viaflo Bag 192.8 ML 16.7 MG CONT INF (03:50)
[2022-04-13] MEDS: 0.9% Saline Lock 10 ML Syringe IV ×5 (03:55→15:10)
[2022-04-13 04:11] LABS: Absolute Lymphocyte Count 1.72 X10^3/uL (0.83-4.51); Absolute Neutrophil Count 11.8 X10^3/uL (2.0-7.7); Basophil# 0.05 X10^3/uL; Basophil% 0.3 % (0-1); Eosinophil# 0.02 X10^3/uL; Eosinophils% 0.1 % (0-5); Hematocrit 35.3 % (40-54); Hemoglobin 10.8 g/dL (13.0-16.5); Lymphocyte # 1.72 X10^3/ul (0.83-4.51); Lymphocyte % 11.5 % (19-41); Mean Corp Hgb Conc 30.6 g/dL (32-36); Mean Corpuscular Hgb 24.2 pg (27.0-32.0); Mean Corpuscular Volume 79.1 fL (80-94); Mean Platelet Vol. 10.3 fl (6.2-12.0); Monocyte# 0.85 X10^3/uL; Monocyte% 5.7 % (0-10); NRBC Flagged by Analyzer 0 % (0-5); Neutrophil # 11.78 X10^3/uL (2.7-7.7); Neutrophil % 78.7 % (47-70); POSITIVE MORPHOLOGY YES; Platelet Count 171 K/mm3 (150-450); RBC Distribution Width CV 17.2 % (11.6-14.6); RBC Distribution Width SD 48.9 fl (35.1-43.9); Red Blood Count 4.46 M/mm3 (4.6-6.2)
[2022-04-13 04:29] LABS: Differential Indicated SCAN CRITERIA MET
[2022-04-13 04:33] LABS: Anisocytosis 1+
[2022-04-13 04:44] LABS: ALB/GLOB Ratio 0.6 RATIO (0.9-2.4); AST(SGOT) 1484 U/L (15-37); Alanine Aminotransfer ALT/SGPT 546 U/L (16-61); Albumin, Serum 1.9 g/dL (3.2-5.0); Alkaline Phosphatase 99 U/L (45-117); Anion Gap 13 (5-15); BUN 89 mg/dL (7-18); BUN/Creat Ratio 21.4 RATIO (10-20); Calcium,Total 7.2 mg/dL (8.5-10.1); Chloride 117 mmol/L (98-107); Creatinine, Serum 4.15 mg/dL (0.70-1.30); EST Glomerular Filtration Rate 16 mL/min (>60); Est Glom Filt Rate - Afr Amer 19 mL/min (>60); Estimated Creatinine Clearance 18.54 ml/min; Globulin 3.4 g/dL (2.2-4.2); Glucose 531 mg/dL (74-106); Magnesium 2.8 mg/dL (1.6-2.6); Potassium 6.1 mmol/L (3.5-5.1); Protein, Total 5.3 g/dL (6.4-8.2); Sodium Level 148 mmol/L (136-145)
[2022-04-13 04:46] LABS: Base Excess -16 mmol/L (-2 to +2); Bicarbonate 13.9 mmol/L (22-26); Blood Gas Specimen Type ART; FI02 65; Mode AC; O2 Delivery Device Adult Vent; PEEP 5; PO2 73 mmHG (75-100); RR 14; SITE R Brach; SO2 87 % (95-99); Total Carbon Dioxide 15 mmol/L; Vt 450; pCO2 48.2 mmHg (35-45); pH 7.07 (7.35-7.45)
--- NOTE | 2022-04-13 04:50 | PCM.HOSP.N ---
Hospitalist Note Patient repeat ABG not improving. Discussed with RT and will further change vent settings. Repeat dose bicarb now. Will also initiate hyperkalemia treatment with K 6.1. GAP has remained closed x 2 now; however, still notable hyperglycemia and given hyperglycemia will continue with repeat BMP assessment following interventions.
[2022-04-13 05:37] LABS: Glucose 442 mg/dL (74-106)
[2022-04-13] MEDS: Albuterol *CONC* 2.5mg/0.5mL VIAL.NEB. 10 MG INHALATION (05:47)
[2022-04-13 05:59] LABS: Lactic Acid 5.6 mmol/L (0.4-1.9)
[2022-04-13] MEDS: Insulin Lispro 10 UNIT in Syringe 0 ML 6 UNIT IV (06:03)
[2022-04-13] MEDS: Sodium Polystyrene Sulfonate 15 GM/60 ML UDC 30 GM PO (06:03)
[2022-04-13] MEDS: Calcium Gluconate IV 1 GM in Syringe 1 EACH IV (06:03)
[2022-04-13] MEDS: Polyethylene Glycol 3350 17 GM PACKET 34 GM PO (06:04)
[2022-04-13] MEDS: Calcium Chloride 1 GM/10 ML Syringe IV (06:13)
[2022-04-13] MEDS: Sodium Bicarbonate 8.4% 50 ML Syringe 50 MEQ IV (06:14)
[2022-04-13 06:40] LABS: Bedside Glucose 424 mg/dL (74-106)
--- NOTE | 2022-04-13 07:36 | PN.HOSP_ITS ---
Subjective Subjective Patient remains in ICU unresponsive. Has no gag reflex. Patient heparin had to be discontinued after he had bright red blood in his NG tube. His sodium levels up to 148, potassium up to 6.1 bicarb 18 creatinine 4.15 WBC count remains elevated. Glucose levels down to 142 lactic acid still remains elevated at 5.6 Objective Data Objective Data Vital Signs: Vital Signs Temp Pulse Resp BP Pulse Ox O2 Del Method O2 Flow Rate 100.7 F H 97 23 H 74/59 L 96 Mechanical Ventilator 15 04/13/22 06:00 04/13/22 06:00 04/13/22 06:00 04/13/22 06:00 04/13/22 06:00 04/13/22 06:00 04/12/22 10:10 FiO2 75 04/13/22 06:00 Oxygen Flow Rate (L/min) 15 Oxygen Delivery Method Mechanical Ventilator Weight: 80.3 kg Body Mass Index (BMI) 23.2 Intake & Output: Intake and Output for Last 24 Hours 04/11/22 04/12/22 04/13/22 23:59 23:59 23:59 Intake Total 8945.86 / 9074.04 3254.76 / 3254.76 Output Total 375 / 375 70 / 70 Balance 8570.86 / 8699.04 3184.76 / 3184.76 Lab / Micro Data Result Diagrams: 04/13/22 04:00 04/13/22 05:10 Labs: Laboratory Results - last 24 hr 04/12/22 10:05: WBC 14.0 H, RBC 5.69, Hgb 13.6, Hct 54.5 H, MCV 95.8 H, MCH 23.9 L, MCHC 25.0 L, RDW Std Deviation 61.2 H, RDW Coeff of Imtiaz 17.8 H, Plt Count 423, MPV 11.7, Immature Gran % (Auto) 1.300 H, Neut % (Auto) 84.6 H, Lymph % (Auto) 7.6 L, [place] % (Auto) 6.0, Eos % (Auto) 0.1, Baso % (Auto) 0.4, Absolute Neuts (auto) 11.9 H, Absolute Lymphs (auto) 1.07, Nucleated RBC % 0 04/12/22 10:05: PT 15.1 H, INR 1.2, APTT 26.8 04/12/22 10:05: Sodium 125 L, Potassium 5.0, Chloride 84 L, Carbon Dioxide 12.0 L, Anion Gap 29 H, BUN 102 H*, Creatinine 4.56 H, Estim Creat Clear Calc 19.14, Est GFR (MDRD) Af Amer 17 L, Est GFR (MDRD) Non-Af 14 L, BUN/Creatinine Ratio 22.4 H, Glucose 1958 H*, Calcium 9.7, Magnesium 4.0 H, Total Bilirubin 0.50, D irect Bilirubin 0.13, AST 24, ALT 22, Alkaline Phosphatase 125 H, Troponin I High Sens 22, Total Protein 7.8, Albumin 2.8 L, Globulin 5.0 H 04/12/22 10:05: Ethyl Alcohol < 3.0 04/12/22 10:05: Lactic Acid 7.5 H* 04/12/22 10:05: B-Natriuretic Peptide 25.4 04/12/22 10:05: Total Creatine Kinase 429 H 04/12/22 10:05: Magnesium 4.3 H 04/12/22 10:05: Hemoglobin A1c > 14.0 H 04/12/22 10:20: Urine Color Yellow, Urine Clarity Clear, Urine pH 5.0, Ur Specific [place] 1.010, Urine Protein 30 H, Urine Glucose (UA) 1000 H, Urine Ketones 5 H, Urine Occult Blood ~50 H, Urine Nitrite Negative, Urine Bilirubin Negative, Urine Urobilinogen Normal, Ur Leukocyte Esterase Negative, Urine RBC 0-5 SEEN, Urine WBC 0-5 SEEN, Ur Squamous Epith Cells 0 SEEN, Urine Bacteria 0 SEEN, Urine Mucus 0 SEEN 04/12/22 10:20: Urine Opiates Screen NEGATIVE, Urine Methadone Screen NEGATIVE, Ur Barbiturates Screen NEGATIVE, Ur Phencyclidine Scrn NEGATIVE, Ur Amphetamines Screen NEGATIVE, MDMA (Ecstasy) Screen NEGATIVE, U Benzodiazepines Scrn NEGATIVE, Urine Cocaine Screen POSITIVE H, U Cannabinoids Screen POSITIVE H, Ur Drug Screen Comment 04/12/22 10:31: POC Glucose > 500 H* 04/12/22 12:31: POC Glucose > 500 H* 04/12/22 12:40: Troponin I High Sens 64 04/12/22 13:24: POC Glucose > 500 H* 04/12/22 13:25: MRSA (PCR) Negative 04/12/22 13:40: Sodium 136, Potassium 3.9, Chloride 98, Carbon Dioxide 14.0 L, Anion Gap 24 H, BUN 98 H, Creatinine 4.28 H, Estim Creat Clear Calc 20.40, Est GFR (MDRD) Af Amer 18 L, Est GFR (MDRD) Non-Af 15 L, BUN/Creatinine Ratio 22.9 H , Glucose 1621 H*, Calcium 9.1 04/12/22 13:55: Acetone Level SMALL H 04/12/22 14:36: POC Glucose > 500 H* 04/12/22 14:40: Glucose 1586 H* 04/12/22 15:00: Lactic Acid 6.3 H* 04/12/22 15:40: Sodium 140, Potassium 4.4, Chloride 103, Carbon Dioxide 14.0 L, Anion Gap 23 H, BUN 94 H, Creatinine 4.31 H, Estim Creat Clear Calc 17.85, Est GFR (MDRD) Af Amer 18 L, Est GFR (MDRD) Non-Af 15 L, BUN/Creatinine Ratio 21.8 H , Glucose 1453 H*, Calcium 8.8, Magnesium 3.4 H 04/12/22 16:35: Glucose 1394 H* 04/12/22 17:20: Troponin I High Sens 440 H* 04/12/22 17:20: WBC 13.9 H, RBC 4.70, Hgb 11.1 L, Hct 40.0, MCV 85.1 D, MCH 23.6 L, MCHC 27.8 L D, RDW Std Deviation 53.8 H, RDW Coeff of Imtiaz 17.4 H, Plt C ount 327, MPV 10.7 04/12/22 17:20: Glucose 1281 H* 04/12/22 18:25: Glucose 1152 H* 04/12/22 20:00: Sodium 144, Potassium 5.2 H, Chloride 111 H, Carbon Dioxide 14.0 L, Anion Gap 19 H, BUN 92 H, Creatinine 4.02 H, Estim Creat Clear Calc 19.14, Est GFR (MDRD) Af Amer 20 L, Est GFR (MDRD) Non-Af 16 L, BUN/Creatinine Ratio 22.9 H, Glucose 1039 H*, Calcium 8.1 L 04/12/22 20:00: APTT 99.3 H* 04/12/22 20:00: Phosphorus 6.9 H 04/12/22 21:00: Glucose 976 H* 04/12/22 22:05: Glucose 897 H* 04/12/22 22:56: Glucose 839 H* 04/13/22 00:05: Sodium 148 H, Potassium 5.5 H, Chloride 115 H, Carbon Dioxide 18.0 L, Anion Gap 15, BUN 88 H, Creatinine 4.03 H, Estim Creat Clear Calc 19.09, Est GFR (MDRD) Af Amer 20 L, Est GFR (MDRD) Non-Af 16 L, BUN/Creatinine Ratio 21.8 H, Glucose 784 H*, Calcium 7.6 L 04/13/22 01:03: Glucose 717 H* 04/13/22 03:04: Glucose 574 H* 04/13/22 04:00: Sodium 148 H, Potassium 6.1 H*, Chloride 117 H, Carbon Dioxide 18.0 L, Anion Gap 13, BUN 89 H, Creatinine 4.15 H, Estim Creat Clear Calc 18.54, Est GFR (MDRD) Af Amer 19 L, Est GFR (MDRD) Non-Af 16 L, BUN/Creatinine Ratio 21.4 H, Glucose 531 H*, Calcium 7.2 L, Magnesium 2.8 H, Total Bilirubin 0.50, AST 1484 H, ALT 546 H, Alkaline Phosphatase 99, Total Protein 5.3 L, Albumin 1.9 L, Globulin 3.4, Albumin/Globulin Ratio 0.6 L 04/13/22 04:00: WBC 15.0 H, RBC 4.46 L, Hgb 10.8 L, Hct 35.3 L, MCV 79.1 L D, MCH 24.2 L, MCHC 30.6 L D, RDW Std Deviation 48.9 H, RDW Coeff of Imtiaz 17.2 H, Plt Count 171, MPV 10.3, Immature Gran % (Auto) 3.700 H, Neut % (Auto) 78.7 H, Lymph % (Auto) 11.5 L, [place] % (Auto) 5.7, Eos % (Auto) 0.1, Baso % (Auto) 0.3, A bsolute Neuts (auto) 11.8 H, Absolute Lymphs (auto) 1.72, Nucleated RBC % 0, Anisocytosis 1+ 04/13/22 05:10: Lactic Acid 5.6 H* 04/13/22 05:10: Glucose 442 H 04/13/22 06:20: POC Glucose 424 H Micro: Microbiology 04/12/22 13:30 Mucosa - Nasopharyngeal Respiratory Panel (PCR) - Final 04/12/22 14:00 Urine Catheter - Catheter Streptococcus pneumoniae Antigen (M - Final 04/12/22 14:00 Urine Catheter - [place] Legionella Antigen - Final ABG Data ABG results: ABG 04/12/22 04/12/22 04/12/22 10:32 10:59 20:12 Specimen Type MACARIO ART ART Sample Site R Radial R Brach R Brach pH 7.14 L* 7.11 L* 7.12 L* Bicarbonate Actual 14.5 L 10.1 L 10.3 L Total CO2 16 11 11 Base Excess -15 L -19 L -19 L O2 Saturation 74 L 99 89 L O2 % 100 100 50 ABG pCO2 42.3 31.9 L 31.9 L ABG pO2 50 L 172 H 73 L Octavio Test Positive N/A N/A Respiration Rate 14 14 O2 Delivery Device Adult Vent ET Tube Adult Vent Vent Mode AC AC Tidal Volume 450 450 450 POC PEEP 5 5 Crit Call To/Read Back Yes Yes Yes Blood Gas Notified Whom zoë Rao 04/13/22 04:37 Specimen Type ART Sample Site R Brach pH 7.07 L* Bicarbonate Actual 13.9 L Total CO2 15 Base Excess -16 L O2 Saturation 87 L O2 % 65 ABG pCO2 48.2 H ABG pO2 73 L Octavio Test Respiration Rate 14 O2 Delivery Device Adult Vent Vent Mode AC Tidal Volume 450 POC PEEP 5 Crit Call To/Read Back Yes Blood Gas Notified Whom Radiography Diagnostic Testing: Radiology Impression Chest X-Ray 04/12/22 11:11 IMPRESSION: All the support tubes are in good position. Progressive reticular infiltrate in the peripheral aspect of the right upper lobe and right lower lobe. This may represent progressive fibrosis versus superimposed patchy infiltrates. Electronically Signed: Terrance Miller MD at 12:38 EST , Echocardiogram 04/12/22 12:29 Interpretation Summary The left ventricular ejection fraction is 35 %. Severe global left ventricular systolic dysfunction. The study was technically difficult. Ordering Physician: Alistair Montenegro Referring Physician: Javy Alcaraz Performed By: Britney Arita, JAE, RVT Rhythm Strip Rhythm Strip: Documented the MDM. Physical Exam Narrative GENERAL: Unresponsive on the vent HEENT: Pupils nonreactive to light EYES; Anicteric, Normal Conjunctiva NECK; supple, normal thyroid, RESPIRATORY: Diminished to auscultation CARDIOVASCULAR: Regular S1 S2, GI: soft, normoactive bowel sounds, : No Renal angle tenderness; EXTREMITIES: Left lower extremity cool to touch with an open wound on the medial aspect of the left big toe MUSCULOSKELETAL: no muscle wasting NEURO: Unresponsive SKIN: Mottling of both lower extremities PSYCH; unresponsive Assessment & Plan Assessment/Plan (1) Cardiopulmonary arrest with successful resuscitation: (2) DKA (diabetic ketoacidoses): (3) Shock circulatory: (4) Acute kidney failure: PLAN: Plan Patient is a 61-year-old gentleman with multiple comorbidities admitted following cardiopulmonary arrest 1. Cardiopulmonary arrest ? Patient was successfully resuscitated using ACLS with ROSC. Subsequently admitted to the intensive care unit. Patient did receive amiodarone and was left on amiodarone drip. As part of his management serial cardiac enzymes and 2D echo ordered with consultation placed to cardiology ? 04/13/2022 patient remains in ICU in critical condition 2. Acute hypoxic respiratory failure ? Following patient cardiopulmonary arrest. Patient was intubated in the ED. Admitted to the intensive care unit. Initial vent settings written. Consult placed to pulmonary/critical care to continue vent management 04/13/2022 patient remains on the vent 3. Shock ? Multifactorial including possible cardiogenic shock as well as possible septic shock. Patient currently receiving IV fluids per protocol started on norepinephrine admitted to the intensive care unit ? 04/13/2022; patient has maxed out on all pressors including norepinephrine, vasopressin and phenylephrine. 4. Suspected septic shock ? From an infected left diabetic foot ulcer. Patient resuscitated with IV fluids per protocol broad-spectrum antibiotics obtain cultures sent ? 04/13/2022 blood pressure remains low 5. Ischemic left lower extremity ? Contributed to patient diabetic foot ulceration. Patient was started on heparin drip per protocol consult placed to vascular surgery Case discussed with Dr. Rome ? 04/13/2022; patient was started on heparin discontinued following development of GI bleed 6. Diabetic ketoacidosis Patient managed with IV fluids, systemic insulin BMP every 4 hours as well as correction of electrolyte abnormalities 7. Acute kidney injury ? Suspected to be secondary to ATN from patient shock. Started on IV fluids consult placed to nephrology 8. Coronary artery disease ? Status post CABG in September 2021. Serial cardiac enzymes ordered in addition to 2D echo 9. Essential hypertension ? Patient antihypertensives placed on hold in view of his shock 10. Dyslipidemia ? Patient was on atorvastatin at home currently placed on hold 11. DVT prophylaxis ? Patient is on heparin Time spent in the patient's overall evaluation,decision-making process, review of diagnostic data, adjustment of management, discussion with other providers, nursing nursing and ancillary staff involved in patient's care documentation, 60 Minutes Charges/Coding Visit Charges Inpatient E&M: 09917 Init Hosp L3
--- NOTE | 2022-04-13 07:56 | PN.CC_ITS ---
Assessment & Plan Assessment/Plan (1) DKA (diabetic ketoacidoses): (2) Cardiopulmonary arrest with successful resuscitation: PLAN: Plan RECOMMENDATIONS: 1. Continue insulin infusion. 2. Start sodium bicarbonate infusion. Await additional input from nephrology. 3. Continue vasopressor support and stress dose steroids. 4. Continue empiric broad-spectrum antimicrobials. 5. Continue PPI therapy. 6. Consider initiation of CRRT, pending the outcome of family goals of care discussion. IMPRESSIONS: 1. Acute hypoxemic respiratory failure/status postcardiac arrest with ROSC The patient was intubated emergently in the emergency department after he presented in an unresponsive state for airway protection. The patient did ex perience a cardiac arrest after being intubated with successful ROSC, following ACLS. Plan to continue current supportive measures with assist control mode of mechanical ventilation, with plans to wean FiO2 and PEEP, as tolerated, to maintain oxygen saturations at or above 90%. 2. Multifactorial shock with multisystem organ failure Most likely multifactorial in etiology. The patient is likely hypovolemic in the setting of osmotic diuresis due to DKA. In addition, septic and cardiogenic etiologies are also a possibility. The patient has been more than adequately volume resuscitated and remains hemodynamically unstable on 3 separate vasopressors and stress dose steroids. Cardiac function is depressed with an ejection fraction of 35%. The patient has associated progressive renal disease and shock liver. At this time, plan to continue supportive measures including antimicrobials. 3. Diabetic ketoacidosis Improving. Although anion gap is closed, plan to continue insulin infusion given persistently elevated blood glucose levels. 4. Encephalopathy Initially was felt to be primarily metabolic in etiology. However, over the last 12 hours, the patient has become comatose with an overall lack of ne urologic reflexes. This would be concerning for an underlying anoxic event. Recommend ongoing goals of care discussion with the patient's family. 5. Ischemic left lower extremity Vascular surgery is following to assist with medical management. 6. Acute kidney injury Most likely prerenal in etiology in the setting of numbers 2 and 3, with pro gression to ischemic ATN. The patient will be aggressively fluid resuscitated. In addition, vasopressor support will be continued to maintain hemodynamic stability. Given his persistent acidosis and vasopressor requirement, will start sodium bicarbonate containing fluids. Appreciate additional assistance by nephrology. 7. History of ischemic cardiomyopathy/peripheral vascular disease/polysubstance dependency/diabetes mellitus Complicates care, management, recovery and prognosis. Continue management as noted above. TIME: 37 minutes of critical care time, independent of procedures, was spent addressing the patient's acute hypoxemic respiratory failure, multifactorial shock, DKA, encephalopathy, ischemic left lower extremity, acute kidney injury, review of all data and collaboration with the care team. Subjective Subjective The patient was seen and examined at the bedside this morning. Events from the last 24 hours have been reviewed. The patient currently has a low-grade fever with tenuous hemodynamics, despite being on Levophed, vasopressin and Satya- Synephrine. In addition, the patient was started on stress dose steroids last night. He is currently documented to be overall net +12.8 L for the hospitalization. Despite ongoing resuscitative efforts, the patient remains significantly acidotic with a bicarbonate of 18 and potassium of 6.1 this morning. Creatinine is worsened to 4.15. Although anion gap has been closed x2, blood glucose levels remain elevated at 442. Lactate is elevated at 5.6. The patient has also developed shock liver. He is currently being maintained on assist control mode mechanical ventilation with an FiO2 requirement of 75% and PEEP of 5. He no longer has a cough or gag reflex. I met personally at the bedside this morning with the patient's and son and updated them on his overall clinical status. Although he is currently listed to be a full code, I strongly suggested to them to consider a transition to DNR CCA. Objective Data Objective Data The patient's most recent lab work, culture data and imaging studies have all b een personally reviewed. Surface echocardiogram demonstrated severe global LV systolic dysfunction with an ejection fraction of 35%. Blood, urine and sputum cultures are pending. Vital Signs: Vital Signs Temp Pulse Resp BP Pulse Ox O2 Del Method O2 Flow Rate 100.5 F H 102 H 22 H 72/53 L 96 Mechanical Ventilator 15 04/13/22 07:00 04/13/22 07:00 04/13/22 07:00 04/13/22 07:00 04/13/22 06:00 04/13/22 06:00 04/12/22 10:10 FiO2 75 04/13/22 07:00 Oxygen Flow Rate (L/min) 15 Oxygen Delivery Method Mechanical Ventilator Weight: 177 lb 0.499 oz Body Mass Index (BMI) 23.2 Intake & Output: Intake and Output for Last 24 Hours 04/11/22 04/12/22 04/13/22 23:59 23:59 23:59 Intake Total 8945.86 / 9074.04 4346.11 / 4346.11 Output Total 375 / 375 70 / 70 Balance 8570.86 / 8699.04 4276.11 / 4276.11 Lab / Micro Data Attestation: I reviewed the patient's lab results. Result Diagrams: 04/13/22 04:00 04/13/22 05:10 Labs: Laboratory Results - last 24 hr 04/12/22 10:05: WBC 14.0 H, RBC 5.69, Hgb 13.6, Hct 54.5 H, MCV 95.8 H, MCH 23.9 L, MCHC 25.0 L, RDW Std Deviation 61.2 H, RDW Coeff of Imtiaz 17.8 H, Plt Count 423, MPV 11.7, Immature Gran % (Auto) 1.300 H, Neut % (Auto) 84.6 H, Lymph % (Auto) 7.6 L, [place] % (Auto) 6.0, Eos % (Auto) 0.1, Baso % (Auto) 0.4, Absolute Neuts (auto) 11.9 H, Absolute Lymphs (auto) 1.07, Nucleated RBC % 0 04/12/22 10:05: PT 15.1 H, INR 1.2, APTT 26.8 04/12/22 10:05: Sodium 125 L, Potassium 5.0, Chloride 84 L, Carbon Dioxide 12.0 L, Anion Gap 29 H, BUN 102 H*, Creatinine 4.56 H, Estim Creat Clear Calc 19.14, Est GFR (MDRD) Af Amer 17 L, Est GFR (MDRD) Non-Af 14 L, BUN/Creatinine Ratio 22.4 H, Glucose 1958 H*, Calcium 9.7, Magnesium 4.0 H, Total Bilirubin 0.50, Direct Bilirubin 0.13, AST 24, ALT 22, Alkaline Phosphatase 125 H, Troponin I High Sens 22, Total Protein 7.8, Albumin 2.8 L, Globulin 5.0 H 04/12/22 10:05: Ethyl Alcohol < 3.0 04/12/22 10:05: Lactic Acid 7.5 H* 04/12/22 10:05: B-Natriuretic Peptide 25.4 04/12/22 10:05: Total Creatine Kinase 429 H 04/12/22 10:05: Magnesium 4.3 H 04/12/22 10:05: Hemoglobin A1c > 14.0 H 04/12/22 10:20: Urine Color Yellow, Urine Clarity Clear, Urine pH 5.0, Ur Specific Brooten 1.010, Urine Protein 30 H, Urine Glucose (UA) 1000 H, Urine Ketones 5 H, Urine Occult Blood ~50 H, Urine Nitrite Negative, Urine Bilirubin Negative, Urine Urobilinogen Normal, Ur Leukocyte Esterase Negative, Urine RBC 0-5 SEEN, Urine WBC 0-5 SEEN, Ur Squamous Epith Cells 0 SEEN, Urine Bacteria 0 SEEN, Urine Mucus 0 SEEN 04/12/22 10:20: Urine Opiates Screen NEGATIVE, Urine Methadone Screen NEGATIVE, Ur Barbiturates Screen NEGATIVE, Ur Phencyclidine Scrn NEGATIVE, Ur Amphetamines Screen NEGATIVE, MDMA (Ecstasy) Screen NEGATIVE, U Benzodiazepines Scrn NEGATIVE, Urine Cocaine Screen POSITIVE H, U Cannabinoids Screen POSITIVE H, Ur Drug Screen Comment 04/12/22 10:31: POC Glucose > 500 H* 04/12/22 12:31: POC Glucose > 500 H* 04/12/22 12:40: Troponin I High Sens 64 04/12/22 13:24: POC Glucose > 500 H* 04/12/22 13:25: MRSA (PCR) Negative 04/12/22 13:40: Sodium 136, Potassium 3.9, Chloride 98, Carbon Dioxide 14.0 L, Anion Gap 24 H, BUN 98 H, Creatinine 4.28 H, Estim Creat Clear Calc 20.40, Est GFR (MDRD) Af Amer 18 L, Est GFR (MDRD) Non-Af 15 L, BUN/Creatinine Ratio 22.9 H , Glucose 1621 H*, Calcium 9.1 04/12/22 13:55: Acetone Level SMALL H 04/12/22 14:36: POC Glucose > 500 H* 04/12/22 14:40: Glucose 1586 H* 04/12/22 15:00: Lactic Acid 6.3 H* 04/12/22 15:40: Sodium 140, Potassium 4.4, Chloride 103, Carbon Dioxide 14.0 L, Anion Gap 23 H, BUN 94 H, Creatinine 4.31 H, Estim Creat Clear Calc 17.85, Est GFR (MDRD) Af Amer 18 L, Est GFR (MDRD) Non-Af 15 L, BUN/Creatinine Ratio 21.8 H , Glucose 1453 H*, Calcium 8.8, Magnesium 3.4 H 04/12/22 16:35: Glucose 1394 H* 04/12/22 17:20: Troponin I High Sens 440 H* 04/12/22 17:20: WBC 13.9 H, RBC 4.70, Hgb 11.1 L, Hct 40.0, MCV 85.1 D, MCH 23.6 L, MCHC 27.8 L D, RDW Std Deviation 53.8 H, RDW Coeff of Mitiaz 17.4 H, Plt Count 327, MPV 10.7 04/12/22 17:20: Glucose 1281 H* 04/12/22 18:25: Glucose 1152 H* 04/12/22 20:00: Sodium 144, Potassium 5.2 H, Chloride 111 H, Carbon Dioxide 14.0 L, Anion Gap 19 H, BUN 92 H, Creatinine 4.02 H, Estim Creat Clear Calc 19.14, Est GFR (MDRD) Af Amer 20 L, Est GFR (MDRD) Non-Af 16 L, BUN/Creatinine Ratio 22.9 H, Glucose 1039 H*, Calcium 8.1 L 04/12/22 20:00: APTT 99.3 H* 04/12/22 20:00: Phosphorus 6.9 H 04/12/22 21:00: Glucose 976 H* 04/12/22 22:05: Glucose 897 H* 04/12/22 22:56: Glucose 839 H* 04/13/22 00:05: Sodium 148 H, Potassium 5.5 H, Chloride 115 H, Carbon Dioxide 18.0 L, Anion Gap 15, BUN 88 H, Creatinine 4.03 H, Estim Creat Clear Calc 19.09, Est GFR (MDRD) Af Amer 20 L, Est GFR (MDRD) Non-Af 16 L, BUN/Creatinine Ratio 21.8 H, Glucose 784 H*, Calcium 7.6 L 04/13/22 01:03: Glucose 717 H* 04/13/22 03:04: Glucose 574 H* 04/13/22 04:00: Sodium 148 H, Potassium 6.1 H*, Chloride 117 H, Carbon Dioxide 18.0 L, Anion Gap 13, BUN 89 H, Creatinine 4.15 H, Estim Creat Clear Calc 18.54, Est GFR (MDRD) Af Amer 19 L, Est GFR (MDRD) Non-Af 16 L, BUN/Creatinine Ratio 21.4 H, Glucose 531 H*, Calcium 7.2 L, Magnesium 2.8 H, Total Bilirubin 0.50, AST 1484 H, ALT 546 H, Alkaline Phosphatase 99, Total Protein 5.3 L, Albumin 1.9 L, Globulin 3.4, Albumin/Globulin Ratio 0.6 L 04/13/22 04:00: WBC 15.0 H, RBC 4.46 L, Hgb 10.8 L, Hct 35.3 L, MCV 79.1 L D, MCH 24.2 L, MCHC 30.6 L D, RDW Std Deviation 48.9 H, RDW Coeff of Imtiaz 17.2 H, Plt Count 171, MPV 10.3, Immature Gran % (Auto) 3.700 H, Neut % (Auto) 78.7 H, Lymph % (Auto) 11.5 L, [place] % (Auto) 5.7, Eos % (Auto) 0.1, Baso % (Auto) 0.3, Absolute Neuts (auto) 11.8 H, Absolute Lymphs (auto) 1.72, Nucleated RBC % 0, Anisocytosis 1+ 04/13/22 05:10: Lactic Acid 5.6 H* 04/13/22 05:10: Glucose 442 H 04/13/22 06:20: POC Glucose 424 H Micro: Microbiology 04/12/22 13:30 Mucosa - Nasopharyngeal Respiratory Panel (PCR) - Final 04/12/22 14:00 Urine Catheter - Catheter Streptococcus pneumoniae Antigen (M - Final 04/12/22 14:00 Urine Catheter - Johnson Legionella Antigen - Final ABG Data ABG results: ABG 04/12/22 04/12/22 04/12/22 10:32 10:59 20:12 Specimen Type MACARIO ART ART Sample Site R Radial R Brach R Brach pH 7.14 L* 7.11 L* 7.12 L* Bicarbonate Actual 14.5 L 10.1 L 10.3 L Total CO2 16 11 11 Base Excess -15 L -19 L -19 L O2 Saturation 74 L 99 89 L O2 % 100 100 50 ABG pCO2 42.3 31.9 L 31.9 L ABG pO2 50 L 172 H 73 L Octavio Test Positive N/A N/A Respiration Rate 14 14 O2 Delivery Device Adult Vent ET Tube Adult Vent Vent Mode AC AC Tidal Volume 450 450 450 POC PEEP 5 5 Crit Call To/Read Back Yes Yes Yes Blood Gas Notified Whom zoë Rao 04/13/22 04:37 Specimen Type ART Sample Site R Brach pH 7.07 L* Bicarbonate Actual 13.9 L Total CO2 15 Base Excess -16 L O2 Saturation 87 L O2 % 65 ABG pCO2 48.2 H ABG pO2 73 L Octavio Test Respiration Rate 14 O2 Delivery Device Adult Vent Vent Mode AC Tidal Volume 450 POC PEEP 5 Crit Call To/Read Back Yes Blood Gas Notified Whom Radiography Diagnostic Testing: Radiology Impression Chest X-Ray 04/12/22 11:11 IMPRESSION: All the support tubes are in good position. Progressive reticular infiltrate in the peripheral aspect of the right upper lobe and right lower lobe. This may represent progressive fibrosis versus superimposed patchy infiltrates. Electronically Signed: Terrance Miller MD at 12:38 EST , Echocardiogram 04/12/22 12:29 Interpretation Summary The left ventricular ejection fraction is 35 %. Severe global left ventricular systolic dysfunction. The study was technically difficult. Ordering Physician: Alistair Montenegro Referring Physician: Javy Alcaraz Performed By: Britney Arita, RDCS, RVT Rhythm Strip Rhythm Strip: Documented the MDM. Physical Exam Const Constitutional Narrative: Currently unresponsive on the ventilator. General Appearance: ill appearing, intubated and patient mechanically ventilated HEENT normocephalic and head/scalp atraumatic Mouth: endotracheal tube in place and OG tube in place Eyes Eyes Narrative: Minimal pupillary response. Neck supple General: trachea midline and CVC in place Chest inspection of chest normal Resp Effort and Inspection: tachypneic Auscultation: diminished lung sounds; Negative for rales, rhonchi or wheezes Cardio S1 normal heart sound and S2 normal heart sound Rate: tachycardic GI soft to palpation and non-tender GI Narrative: Hypoactive bowel sounds Extremity General Extremity: Negative for clubbing or edema Skin Skin Narrative: Left great toe wound with pale, cool left lower extremity General Skin Exam: mottling Neuro Neuro Narrative: Currently comatose on the ventilator. Charges/Coding Procedures Hospitalists Procedures: 70711 Critial Care 1st Hr
[2022-04-13 08:21] LABS: Bedside Glucose 297 mg/dL (74-106)
--- NOTE | 2022-04-13 08:33 | PN.CARD_ITS ---
Subjective Subjective Events of yesterday reviewed. Patient still intubated with family at bedside. Objective Data Vital Signs: Vital Signs Temp Pulse Resp BP Pulse Ox O2 Del Method O2 Flow Rate 100.8 F H 97 20 H 75/54 L 93 Mechanical Ventilator 15 04/13/22 08:00 04/13/22 08:00 04/13/22 08:00 04/13/22 08:00 04/13/22 08:00 04/13/22 08:00 04/12/22 10:10 FiO2 75 04/13/22 08:00 Oxygen Flow Rate (L/min) 15 Oxygen Delivery Method Mechanical Ventilator Weight: 177 lb 0.499 oz Body Mass Index (BMI) 23.2 Intake & Output: Intake and Output for Last 24 Hours 04/11/22 04/12/22 04/13/22 23:59 23:59 23:59 Intake Total 8945.86 / 9074.04 4431.57 / 4431.57 Output Total 375 / 375 70 / 70 Balance 8570.86 / 8699.04 4361.57 / 4361.57 Lab / Micro Data Result Diagrams: 04/13/22 04:00 04/13/22 05:10 Labs: Laboratory Results - last 24 hr 04/12/22 10:05: WBC 14.0 H, RBC 5.69, Hgb 13.6, Hct 54.5 H, MCV 95.8 H, MCH 23.9 L, MCHC 25.0 L, RDW Std Deviation 61.2 H, RDW Coeff of Imtiaz 17.8 H, Plt Count 423, MPV 11.7, Immature Gran % (Auto) 1.300 H, Neut % (Auto) 84.6 H, Lymph % (Auto) 7.6 L, Foster % (Auto) 6.0, Eos % (Auto) 0.1, Baso % (Auto) 0.4, Absolute Neuts (auto) 11.9 H, Absolute Lymphs (auto) 1.07, Nucleated RBC % 0 04/12/22 10:05: PT 15.1 H, INR 1.2, APTT 26.8 04/12/22 10:05: Sodium 125 L, Potassium 5.0, Chloride 84 L, Carbon Dioxide 12.0 L, Anion Gap 29 H, BUN 102 H*, Creatinine 4.56 H, Estim Creat Clear Calc 19.14, Est GFR (MDRD) Af Amer 17 L, Est GFR (MDRD) Non-Af 14 L, BUN/Creatinine Ratio 22.4 H, Glucose 1958 H*, Calcium 9.7, Magnesium 4.0 H, Total Bilirubin 0.50, Direct Bilirubin 0.13, AST 24, ALT 22, Alkaline Phosphatase 125 H, Troponin I High Sens 22, Total Protein 7.8, Albumin 2.8 L, Globulin 5.0 H 04/12/22 10:05: Ethyl Alcohol < 3.0 04/12/22 10:05: Lactic Acid 7.5 H* 04/12/22 10:05: B-Natriuretic Peptide 25.4 04/12/22 10:05: Total Creatine Kinase 429 H 04/12/22 10:05: Magnesium 4.3 H 04/12/22 10:05: Hemoglobin A1c > 14.0 H 04/12/22 10:20: Urine Color Yellow, Urine Clarity Clear, Urine pH 5.0, Ur Specific [place] 1.010, Urine Protein 30 H, Urine Glucose (UA) 1000 H, Urine Ketones 5 H, Urine Occult Blood ~50 H, Urine Nitrite Negative, Urine Bilirubin Negative, Urine Urobilinogen Normal, Ur Leukocyte Esterase Negative, Urine RBC 0-5 SEEN, Urine WBC 0-5 SEEN, Ur Squamous Epith Cells 0 SEEN, Urine Bacteria 0 SEEN, Urine Mucus 0 SEEN 04/12/22 10:20: Urine Opiates Screen NEGATIVE, Urine Methadone Screen NEGATIVE, Ur Barbiturates Screen NEGATIVE, Ur Phencyclidine Scrn NEGATIVE, Ur Amphetamines Screen NEGATIVE, MDMA (Ecstasy) Screen NEGATIVE, U Benzodiazepines Scrn NEGATIVE, Urine Cocaine Screen POSITIVE H, U Cannabinoids Screen POSITIVE H, Ur Drug Screen Comment 04/12/22 10:31: POC Glucose > 500 H* 04/12/22 12:31: POC Glucose > 500 H* 04/12/22 12:40: Troponin I High Sens 64 04/12/22 13:24: POC Glucose > 500 H* 04/12/22 13:25: MRSA (PCR) Negative 04/12/22 13:40: Sodium 136, Potassium 3.9, Chloride 98, Carbon Dioxide 14.0 L, Anion Gap 24 H, BUN 98 H, Creatinine 4.28 H, Estim Creat Clear Calc 20.40, Est GFR (MDRD) Af Amer 18 L, Est GFR (MDRD) Non-Af 15 L, BUN/Creatinine Ratio 22.9 H , Glucose 1621 H*, Calcium 9.1 04/12/22 13:55: Acetone Level SMALL H 04/12/22 14:36: POC Glucose > 500 H* 04/12/22 14:40: Glucose 1586 H* 04/12/22 15:00: Lactic Acid 6.3 H* 04/12/22 15:40: Sodium 140, Potassium 4.4, Chloride 103, Carbon Dioxide 14.0 L, Anion Gap 23 H, BUN 94 H, Creatinine 4.31 H, Estim Creat Clear Calc 17.85, Est GFR (MDRD) Af Amer 18 L, Est GFR (MDRD) Non-Af 15 L, BUN/Creatinine Ratio 21.8 H , Glucose 1453 H*, Calcium 8.8, Magnesium 3.4 H 04/12/22 16:35: Glucose 1394 H* 04/12/22 17:20: Troponin I High Sens 440 H* 04/12/22 17:20: WBC 13.9 H, RBC 4.70, Hgb 11.1 L, Hct 40.0, MCV 85.1 D, MCH 23.6 L, MCHC 27.8 L D, RDW Std Deviation 53.8 H, RDW Coeff of Imtiaz 17.4 H, Plt Count 327, MPV 10.7 04/12/22 17:20: Glucose 1281 H* 04/12/22 18:25: Glucose 1152 H* 04/12/22 20:00: Sodium 144, Potassium 5.2 H, Chloride 111 H, Carbon Dioxide 14.0 L, Anion Gap 19 H, BUN 92 H, Creatinine 4.02 H, Estim Creat Clear Calc 19.14, Est GFR (MDRD) Af Amer 20 L, Est GFR (MDRD) Non-Af 16 L, BUN/Creatinine Ratio 22.9 H, Glucose 1039 H*, Calcium 8.1 L 04/12/22 20:00: APTT 99.3 H* 04/12/22 20:00: Phosphorus 6.9 H 04/12/22 21:00: Glucose 976 H* 04/12/22 22:05: Glucose 897 H* 04/12/22 22:56: Glucose 839 H* 04/13/22 00:05: Sodium 148 H, Potassium 5.5 H, Chloride 115 H, Carbon Dioxide 18.0 L, Anion Gap 15, BUN 88 H, Creatinine 4.03 H, Estim Creat Clear Calc 19.09, Est GFR (MDRD) Af Amer 20 L, Est GFR (MDRD) Non-Af 16 L, BUN/Creatinine Ratio 21.8 H, Glucose 784 H*, Calcium 7.6 L 04/13/22 01:03: Glucose 717 H* 04/13/22 03:04: Glucose 574 H* 04/13/22 04:00: Sodium 148 H, Potassium 6.1 H*, Chloride 117 H, Carbon Dioxide 18.0 L, Anion Gap 13, BUN 89 H, Creatinine 4.15 H, Estim Creat Clear Calc 18.54, Est GFR (MDRD) Af Amer 19 L, Est GFR (MDRD) Non-Af 16 L, BUN/Creatinine Ratio 21.4 H, Glucose 531 H*, Calcium 7.2 L, Magnesium 2.8 H, Total Bilirubin 0.50, AST 1484 H, ALT 546 H, Alkaline Phosphatase 99, Total Protein 5.3 L, Albumin 1.9 L, Globulin 3.4, Albumin/Globulin Ratio 0.6 L 04/13/22 04:00: WBC 15.0 H, RBC 4.46 L, Hgb 10.8 L, Hct 35.3 L, MCV 79.1 L D, MCH 24.2 L, MCHC 30.6 L D, RDW Std Deviation 48.9 H, RDW Coeff of Imtiaz 17.2 H, Plt Count 171, MPV 10.3, Immature Gran % (Auto) 3.700 H, Neut % (Auto) 78.7 H, Lymph % (Auto) 11.5 L, Foster % (Auto) 5.7, Eos % (Auto) 0.1, Baso % (Auto) 0.3, Absolute Neuts (auto) 11.8 H, Absolute Lymphs (auto) 1.72, Nucleated RBC % 0, Anisocytosis 1+ 04/13/22 05:10: Lactic Acid 5.6 H* 04/13/22 05:10: Glucose 442 H 04/13/22 06:20: POC Glucose 424 H 04/13/22 07:57: POC Glucose 297 H Micro: Microbiology 04/12/22 13:30 Mucosa - Nasopharyngeal Respiratory Panel (PCR) - Final 04/12/22 14:00 Urine Catheter - Catheter Streptococcus pneumoniae Antigen (M - Final 04/12/22 14:00 Urine Catheter - Johnson Legionella Antigen - Final ABG Data ABG results: ABG 04/12/22 04/12/22 04/12/22 10:32 10:59 20:12 Specimen Type MACARIO ART ART Sample Site R Radial R Brach R Brach pH 7.14 L* 7.11 L* 7.12 L* Bicarbonate Actual 14.5 L 10.1 L 10.3 L Total CO2 16 11 11 Base Excess -15 L -19 L -19 L O2 Saturation 74 L 99 89 L O2 % 100 100 50 ABG pCO2 42.3 31.9 L 31.9 L ABG pO2 50 L 172 H 73 L Octavio Test Positive N/A N/A Respiration Rate 14 14 O2 Delivery Device Adult Vent ET Tube Adult Vent Vent Mode AC AC Tidal Volume 450 450 450 POC PEEP 5 5 Crit Call To/Read Back Yes Yes Yes Blood Gas Notified Whom zoë Rao 04/13/22 04:37 Specimen Type ART Sample Site R Brach pH 7.07 L* Bicarbonate Actual 13.9 L Total CO2 15 Base Excess -16 L O2 Saturation 87 L O2 % 65 ABG pCO2 48.2 H ABG pO2 73 L Octavio Test Respiration Rate 14 O2 Delivery Device Adult Vent Vent Mode AC Tidal Volume 450 POC PEEP 5 Crit Call To/Read Back Yes Blood Gas Notified Whom Rhythm Strip Rhythm Strip: Documented the MDM. Cardiology Labs/Tests 04/12/22 10:05: WBC 14.0 H, RBC 5.69, Hgb 13.6, Hct 54.5 H, MCV 95.8 H, MCH 23.9 L, MCHC 25.0 L, Plt Count 423, MPV 11.7, Immature Gran % (Auto) 1.300 H, Neut % (Auto) 84.6 H, Lymph % (Auto) 7.6 L, Foster % (Auto) 6.0, Eos % (Auto) 0.1, Baso % (Auto) 0.4, Absolute Neuts (auto) 11.9 H, Nucleated RBC % 0 04/12/22 10:05: PT 15.1 H, INR 1.2, APTT 26.8 04/12/22 10:05: Sodium 125 L, Potassium 5.0, Chloride 84 L, Carbon Dioxide 12.0 L, Anion Gap 29 H, BUN 102 H*, Creatinine 4.56 H, Est GFR (MDRD) Af Amer 17 L, Est GFR (MDRD) Non-Af 14 L, BUN/Creatinine Ratio 22.4 H, Glucose 1958 H*, Calcium 9.7, Magnesium 4.0 H, Total Bilirubin 0.50, Direct Bilirubin 0.13 04/12/22 10:05: Lactic Acid 7.5 H* 04/12/22 10:05: B-Natriuretic Peptide 25.4 04/12/22 10:05: Magnesium 4.3 H 04/12/22 10:05: Hemoglobin A1c > 14.0 H 04/12/22 10:20: Urine Color Yellow, Urine Clarity Clear, Urine pH 5.0, Ur Specific [place] 1.010, Urine Protein 30 H, Urine Glucose (UA) 1000 H, Urine Ketones 5 H, Urine Occult Blood ~50 H, Urine Nitrite Negative, Urine Bilirubin Negative, Urine Urobilinogen Normal, Ur Leukocyte Esterase Negative, Urine RBC 0-5 SEEN, Urine WBC 0-5 SEEN 04/12/22 10:32: pH 7.14 L*, Bicarbonate Actual 14.5 L, Base Excess -15 L, O2 Saturation 74 L, ABG pCO2 42.3, ABG pO2 50 L, Octavio Test Positive 04/12/22 10:59: pH 7.11 L*, Bicarbonate Actual 10.1 L, Base Excess -19 L, O2 Saturation 99, ABG pCO2 31.9 L, ABG pO2 172 H, Octavio Test N/A 04/12/22 13:40: Sodium 136, Potassium 3.9, Chloride 98, Carbon Dioxide 14.0 L, Anion Gap 24 H, BUN 98 H, Creatinine 4.28 H, Est GFR (MDRD) Af Amer 18 L, Est GFR (MDRD) Non-Af 15 L, BUN/Creatinine Ratio 22.9 H, Glucose 1621 H*, Calcium 9.1 04/12/22 14:40: Glucose 1586 H* 04/12/22 15:00: Lactic Acid 6.3 H* 04/12/22 15:40: Sodium 140, Potassium 4.4, Chloride 103, Carbon Dioxide 14.0 L, Anion Gap 23 H, BUN 94 H, Creatinine 4.31 H, Est GFR (MDRD) Af Amer 18 L, Est GFR (MDRD) Non-Af 15 L, BUN/Creatinine Ratio 21.8 H, Glucose 1453 H*, Calcium 8.8, Magnesium 3.4 H 04/12/22 16:35: Glucose 1394 H* 04/12/22 17:20: WBC 13.9 H, RBC 4.70, Hgb 11.1 L, Hct 40.0, MCV 85.1 D, MCH 23.6 L, MCHC 27.8 L D, Plt Count 327, MPV 10.7 04/12/22 17:20: Glucose 1281 H* 04/12/22 18:25: Glucose 1152 H* 04/12/22 20:00: Sodium 144, Potassium 5.2 H, Chloride 111 H, Carbon Dioxide 14.0 L, Anion Gap 19 H, BUN 92 H, Creatinine 4.02 H, Est GFR (MDRD) Af Amer 20 L, Est GFR (MDRD) Non-Af 16 L, BUN/Creatinine Ratio 22.9 H, Glucose 1039 H*, Calcium 8.1 L 04/12/22 20:00: APTT 99.3 H* 04/12/22 20:00: Phosphorus 6.9 H 04/12/22 20:12: pH 7.12 L*, Bicarbonate Actual 10.3 L, Base Excess -19 L, O2 Saturation 89 L, ABG pCO2 31.9 L, ABG pO2 73 L, Octavio Test N/A 04/12/22 21:00: Glucose 976 H* 04/12/22 22:05: Glucose 897 H* 04/12/22 22:56: Glucose 839 H* 04/13/22 00:05: Sodium 148 H, Potassium 5.5 H, Chloride 115 H, Carbon Dioxide 18.0 L, Anion Gap 15, BUN 88 H, Creatinine 4.03 H, Est GFR (MDRD) Af Amer 20 L, Est GFR (MDRD) Non-Af 16 L, BUN/Creatinine Ratio 21.8 H, Glucose 784 H*, Calcium 7.6 L 04/13/22 01:03: Glucose 717 H* 04/13/22 03:04: Glucose 574 H* 04/13/22 04:00: Sodium 148 H, Potassium 6.1 H*, Chloride 117 H, Carbon Dioxide 18.0 L, Anion Gap 13, BUN 89 H, Creatinine 4.15 H, Est GFR (MDRD) Af Amer 19 L, Est GFR (MDRD) Non-Af 16 L, BUN/Creatinine Ratio 21.4 H, Glucose 531 H*, Calcium 7.2 L, Magnesium 2.8 H, Total Bilirubin 0.50 04/13/22 04:00: WBC 15.0 H, RBC 4.46 L, Hgb 10.8 L, Hct 35.3 L, MCV 79.1 L D, MCH 24.2 L, MCHC 30.6 L D, Plt Count 171, MPV 10.3, Immature Gran % (Auto) 3.700 H, Neut % (Auto) 78.7 H, Lymph % (Auto) 11.5 L, Foster % (Auto) 5.7, Eos % (Auto) 0.1, Baso % (Auto) 0.3, Absolute Neuts (auto) 11.8 H, Nucleated RBC % 0 04/13/22 04:37: pH 7.07 L*, Bicarbonate Actual 13.9 L, Base Excess -16 L, O2 Saturation 87 L, ABG pCO2 48.2 H, ABG pO2 73 L 04/13/22 05:10: Lactic Acid 5.6 H* 04/13/22 05:10: Glucose 442 H Rhythm: EKG: ECHO: Stress Test: Cardiac Cath: PCI: CT Surgery: Holter monitor: EPS: PPM: CXR: Chest CT Scan: Radiography Diagnostic Testing: Radiology Impression Chest X-Ray 04/12/22 11:11 IMPRESSION: All the support tubes are in good position. Progressive reticular infiltrate in the peripheral aspect of the right upper lobe and right lower lobe. This may represent progressive fibrosis versus superimposed patchy infiltrates. Electronically Signed: Terrance Miller MD at 12:38 EST , Echocardiogram 04/12/22 12:29 Interpretation Summary The left ventricular ejection fraction is 35 %. Severe global left ventricular systolic dysfunction. The study was technically difficult. Ordering Physician: Alistair Montenegro Referring Physician: Javy Alcaraz Performed By: Britney Arita RDCS, RVT Physical Exam Const Constitutional Narrative: Currently unresponsive on the ventilator. General Appearance: ill appearing, intubated and patient mechanically ventilated HEENT normocephalic and head/scalp atraumatic Mouth: endotracheal tube in place and OG tube in place Eyes Eyes Narrative: Minimal pupillary response. Neck supple General: trachea midline and CVC in place Chest inspection of chest normal Resp Effort and Inspection: tachypneic Auscultation: diminished lung sounds; Negative for rales, rhonchi or wheezes Cardio S1 normal heart sound and S2 normal heart sound Rate: tachycardic GI soft to palpation and non-tender GI Narrative: Hypoactive bowel sounds Extremity General Extremity: Negative for clubbing or edema Skin Skin Narrative: Left great toe wound with pale, cool left lower extremity General Skin Exam: mottling Neuro Neuro Narrative: Currently comatose on the ventilator. Assessment & Plan Assessment/Plan (1) Cardiopulmonary arrest with successful resuscitation: PLAN: Patient is status post cardiopulmonary arrest and successful resuscitation with ACLS and ROSC. The patient did receive amiodarone and echocardiogram demonstrated an ejection fraction of approximately 35%. Plan is to continue supportive measures at this time. There are no plans for interventional cardiology at this time. (2) Shock circulatory: PLAN: The above appears to be multifactorial at this particular time. He is on multiple pressors including norepinephrine, phenylephrine, vasopressin. Patient also receiving IV fluids. The family at bedside and talking about making decisions. Overall prognosis is guarded. (3) Acute kidney failure: PLAN: Patient with acute kidney failure. At this time with his level of renal insufficiency no plans for any invasive cardiac therapy at this time. (4) H/O coronary artery bypass surgery: PLAN: Patient is status post coronary bypass surgery in 2021. He has not hitherto complained of any chest discomfort. We will continue to observe at this particular time. (5) Essential hypertension: PLAN: He does have a history of hypertension. He is hypotensive at this particular time however. On the multiple pressor agents. Overall prognosis is rather guarded.
[2022-04-13] MEDS: Chlorhexidine 15 ML PO (09:12)
[2022-04-13 09:19] LABS: Reflex Lactate? Y
--- NOTE | 2022-04-13 10:02 | PN.RENAL_ITS ---
Documented by User: JAMIA Stiles 04/13/22 10:14 Subjective Subjective Following for DARON. No overnight events. Objective Data Objective Data Vital Signs: Vital Signs Temp Pulse Resp BP Pulse Ox O2 Del Method O2 Flow Rate 100.8 F H 98 19 H 75/58 L 92 Mechanical Ventilator 15 04/13/22 08:00 04/13/22 09:20 04/13/22 09:20 04/13/22 09:00 04/13/22 09:20 04/13/22 09:00 04/12/22 10:10 FiO2 75 04/13/22 09:20 Oxygen Flow Rate (L/min) 15 Oxygen Delivery Method Mechanical Ventilator Weight: 80.3 kg Body Mass Index (BMI) 23.2 Intake & Output: Intake and Output for Last 24 Hours 04/11/22 04/12/22 04/13/22 23:59 23:59 23:59 Intake Total 8945.86 / 9074.04 4586.78 / 4586.78 Output Total 375 / 375 70 / 70 Balance 8570.86 / 8699.04 4516.78 / 4516.78 Lab / Micro Data Result Diagrams: 04/13/22 11:48 04/13/22 11:48 Labs: Laboratory Results - last 24 hr 04/12/22 10:05: WBC 14.0 H, RBC 5.69, Hgb 13.6, Hct 54.5 H, MCV 95.8 H, MCH 23.9 L, MCHC 25.0 L, RDW Std Deviation 61.2 H, RDW Coeff of Imtiaz 17.8 H, Plt Count 423, MPV 11.7, Immature Gran % (Auto) 1.300 H, Neut % (Auto) 84.6 H, Lymph % (Auto) 7.6 L, Wake % (Auto) 6.0, Eos % (Auto) 0.1, Baso % (Auto) 0.4, Absolute Neuts (auto) 11.9 H, Absolute Lymphs (auto) 1.07, Nucleated RBC % 0 04/12/22 10:05: PT 15.1 H, INR 1.2, APTT 26.8 04/12/22 10:05: Sodium 125 L, Potassium 5.0, Chloride 84 L, Carbon Dioxide 12.0 L, Anion Gap 29 H, BUN 102 H*, Creatinine 4.56 H, Estim Creat Clear Calc 19.14, Est GFR (MDRD) Af Amer 17 L, Est GFR (MDRD) Non-Af 14 L, BUN/Creatinine Ratio 22.4 H, Glucose 1958 H*, Calcium 9.7, Magnesium 4.0 H, Total Bilirubin 0.50, Direct Bilirubin 0.13, AST 24, ALT 22, Alkaline Phosphatase 125 H, Troponin I High Sens 22, Total Protein 7.8, Albumin 2.8 L, Globulin 5.0 H 04/12/22 10:05: Ethyl Alcohol < 3.0 04/12/22 10:05: Lactic Acid 7.5 H* 04/12/22 10:05: B-Natriuretic Peptide 25.4 04/12/22 10:05: Total Creatine Kinase 429 H 04/12/22 10:05: Magnesium 4.3 H 04/12/22 10:05: Hemoglobin A1c > 14.0 H 04/12/22 10:20: Urine Color Yellow, Urine Clarity Clear, Urine pH 5.0, Ur Specific [place] 1.010, Urine Protein 30 H, Urine Glucose (UA) 1000 H, Urine Ketones 5 H, Urine Occult Blood ~50 H, Urine Nitrite Negative, Urine Bilirubin Negative, Urine Urobilinogen Normal, Ur Leukocyte Esterase Negative, Urine RBC 0-5 SEEN, Urine WBC 0-5 SEEN, Ur Squamous Epith Cells 0 SEEN, Urine Bacteria 0 SEEN, Urine Mucus 0 SEEN 04/12/22 10:20: Urine Opiates Screen NEGATIVE, Urine Methadone Screen NEGATIVE, Ur Barbiturates Screen NEGATIVE, Ur Phencyclidine Scrn NEGATIVE, Ur Amphetamines Screen NEGATIVE, MDMA (Ecstasy) Screen NEGATIVE, U Benzodiazepines Scrn NEGATIVE, Urine Cocaine Screen POSITIVE H, U Cannabinoids Screen POSITIVE H, Ur Drug Screen Comment 04/12/22 10:31: POC Glucose > 500 H* 04/12/22 12:31: POC Glucose > 500 H* 04/12/22 12:40: Troponin I High Sens 64 04/12/22 13:24: POC Glucose > 500 H* 04/12/22 13:25: MRSA (PCR) Negative 04/12/22 13:40: Sodium 136, Potassium 3.9, Chloride 98, Carbon Dioxide 14.0 L, Anion Gap 24 H, BUN 98 H, Creatinine 4.28 H, Estim Creat Clear Calc 20.40, Est GFR (MDRD) Af Amer 18 L, Est GFR (MDRD) Non-Af 15 L, BUN/Creatinine Ratio 22.9 H , Glucose 1621 H*, Calcium 9.1 04/12/22 13:55: Acetone Level SMALL H 04/12/22 14:36: POC Glucose > 500 H* 04/12/22 14:40: Glucose 1586 H* 04/12/22 15:00: Lactic Acid 6.3 H* 04/12/22 15:40: Sodium 140, Potassium 4.4, Chloride 103, Carbon Dioxide 14.0 L, Anion Gap 23 H, BUN 94 H, Creatinine 4.31 H, Estim Creat Clear Calc 17.85, Est GFR (MDRD) Af Amer 18 L, Est GFR (MDRD) Non-Af 15 L, BUN/Creatinine Ratio 21.8 H , Glucose 1453 H*, Calcium 8.8, Magnesium 3.4 H 04/12/22 16:35: Glucose 1394 H* 04/12/22 17:20: Troponin I High Sens 440 H* 04/12/22 17:20: WBC 13.9 H, RBC 4.70, Hgb 11.1 L, Hct 40.0, MCV 85.1 D, MCH 23.6 L, MCHC 27.8 L D, RDW Std Deviation 53.8 H, RDW Coeff of Imtiaz 17.4 H, Plt Count 327, MPV 10.7 04/12/22 17:20: Glucose 1281 H* 04/12/22 18:25: Glucose 1152 H* 04/12/22 20:00: Sodium 144, Potassium 5.2 H, Chloride 111 H, Carbon Dioxide 14.0 L, Anion Gap 19 H, BUN 92 H, Creatinine 4.02 H, Estim Creat Clear Calc 19.14, Est GFR (MDRD) Af Amer 20 L, Est GFR (MDRD) Non-Af 16 L, BUN/Creatinine Ratio 22.9 H, Glucose 1039 H*, Calcium 8.1 L 04/12/22 20:00: APTT 99.3 H* 04/12/22 20:00: Phosphorus 6.9 H 04/12/22 21:00: Glucose 976 H* 01/26/23 22:05: Glucose 897 H* 04/12/22 22:56: Glucose 839 H* 04/13/22 00:05: Sodium 148 H, Potassium 5.5 H, Chloride 115 H, Carbon Dioxide 18.0 L, Anion Gap 15, BUN 88 H, Creatinine 4.03 H, Estim Creat Clear Calc 19.09, Est GFR (MDRD) Af Amer 20 L, Est GFR (MDRD) Non-Af 16 L, BUN/Creatinine Ratio 21.8 H, Glucose 784 H*, Calcium 7.6 L 04/13/22 01:03: Glucose 717 H* 04/13/22 03:04: Glucose 574 H* 04/13/22 04:00: Sodium 148 H, Potassium 6.1 H*, Chloride 117 H, Carbon Dioxide 18.0 L, Anion Gap 13, BUN 89 H, Creatinine 4.15 H, Estim Creat Clear Calc 18.54, Est GFR (MDRD) Af Amer 19 L, Est GFR (MDRD) Non-Af 16 L, BUN/Creatinine Ratio 21.4 H, Glucose 531 H*, Calcium 7.2 L, Magnesium 2.8 H, Total Bilirubin 0.50, AST 1484 H, ALT 546 H, Alkaline Phosphatase 99, Total Protein 5.3 L, Albumin 1.9 L, Globulin 3.4, Albumin/Globulin Ratio 0.6 L 04/13/22 04:00: WBC 15.0 H, RBC 4.46 L, Hgb 10.8 L, Hct 35.3 L, MCV 79.1 L D, MCH 24.2 L, MCHC 30.6 L D, RDW Std Deviation 48.9 H, RDW Coeff of Imtiaz 17.2 H, Plt Count 171, MPV 10.3, Immature Gran % (Auto) 3.700 H, Neut % (Auto) 78.7 H, Lymph % (Auto) 11.5 L, Wake % (Auto) 5.7, Eos % (Auto) 0.1, Baso % (Auto) 0.3, Absolute Neuts (auto) 11.8 H, Absolute Lymphs (auto) 1.72, Nucleated RBC % 0, Anisocytosis 1+ 04/13/22 05:10: Lactic Acid 5.6 H* 04/13/22 05:10: Glucose 442 H 04/13/22 06:20: POC Glucose 424 H 04/13/22 07:57: POC Glucose 297 H Micro: Microbiology 04/12/22 10:20 Urine, Catheterized Urine Culture - Preliminary Culture exhibits no growth. 04/12/22 13:30 Mucosa - Nasopharyngeal Respiratory Panel (PCR) - Final 04/12/22 14:00 Urine Catheter - Catheter Streptococcus pneumoniae Antigen (M - Final 04/12/22 14:00 Urine Catheter - Huizar Legionella Antigen - Final ABG Data ABG results: ABG 04/12/22 04/12/22 04/12/22 10:32 10:59 20:12 Specimen Type MACARIO ART ART Sample Site R Radial R Brach R Brach pH 7.14 L* 7.11 L* 7.12 L* Bicarbonate Actual 14.5 L 10.1 L 10.3 L Total CO2 16 11 11 Base Excess -15 L -19 L -19 L O2 Saturation 74 L 99 89 L O2 % 100 100 50 ABG pCO2 42.3 31.9 L 31.9 L ABG pO2 50 L 172 H 73 L Octavio Test Positive N/A N/A Respiration Rate 14 14 O2 Delivery Device Adult Vent ET Tube Adult Vent Vent Mode AC AC Tidal Volume 450 450 450 POC PEEP 5 5 Crit Call To/Read Back Yes Yes Yes Blood Gas Notified Whom zoë Rao 04/13/22 04:37 Specimen Type ART Sample Site R Brach pH 7.07 L* Bicarbonate Actual 13.9 L Total CO2 15 Base Excess -16 L O2 Saturation 87 L O2 % 65 ABG pCO2 48.2 H ABG pO2 73 L Octavio Test Respiration Rate 14 O2 Delivery Device Adult Vent Vent Mode AC Tidal Volume 450 POC PEEP 5 Crit Call To/Read Back Yes Blood Gas Notified Whom Radiography Diagnostic Testing: Radiology Impression Chest X-Ray 04/12/22 11:11 IMPRESSION: All the support tubes are in good position. Progressive reticular infiltrate in the peripheral aspect of the right upper lobe and right lower lobe. This may represent progressive fibrosis versus superimposed patchy infiltrates. Electronically Signed: Terrance Miller MD at 12:38 EST , Echocardiogram 04/12/22 12:29 Interpretation Summary The left ventricular ejection fraction is 35 %. Severe global left ventricular systolic dysfunction. The study was technically difficult. Ordering Physician: Alistair Montenegro Referring Physician: Javy Alcaraz Performed By: Britney Arita, JAE, RVT Rhythm Strip Rhythm Strip: Documented the MDM. Physical Exam Narrative Intubated no obvious distress s1s2 no murmurs lungs diminished breath sounds. No rhonchi or rales abdomen soft no pitting edema huizar + with scant yellow urine in tubing Assessment & Plan Assessment/Plan (1) DKA (diabetic ketoacidoses): (2) DM hyperosmolar coma, type 2: (3) Acute uremia: (4) Acute kidney failure: PLAN: Admitted with severe septic shock, currently on 3 vasopressors and stress dose steroids. DARON secondary to ATN from severe septic shock. Patient has normal baseline creatinine. Creatinine on admission 4.56 mg/dL and is currently 4.15 mg/dL. Patient is essentially anuric. Potassium this a.m. 6.1, patient was started on bicarb drip. He also received Kayexalate, insulin, MiraLAX, calcium chloride, bicarb and albuterol. Patient is heading towards needing [employer]PERATOR. I had lengthy discussion with patient's , son and other family members regarding DARON, hyperkalemia and need for ICE PLANT OPERATOR. At this time /son in agreement for moving forward with [employer] PL[employer] OPERATOR. Risks and benefits of dialysis explained to and family; aware patient can become tachycardic, hypotensive during dialysis. Questions were answered. Patient is significantly hypotensive therefore will be initiated on CRRT. We will continue to monitor for renal recovery. Admission chest x-ray did not show fluid overload. -Diabetic ketoacidosis. Improving. On insulin drip. -Ischemic left lower extremity, vascular following. On antibiotics, cefepime. Blood cultures pending -Status post cardiopulmonary arrest with successful resuscitation. History of ischemic cardiomyopathy. Cardiology following. Documented by User: Dr. Ann Olivares MD 04/13/22 14:28 Objective Data Lab / Micro Data Result Diagrams: 04/13/22 11:48 04/13/22 11:48 Assessment & Plan Assessment/Plan (1) DKA (diabetic ketoacidoses): (2) DM hyperosmolar coma, type 2: (3) Acute uremia: (4) Acute kidney failure: PLAN: Admitted with severe septic shock, currently on 3 vasopressors and stress dose steroids. DARON secondary to ATN from severe septic shock. Patient has normal baseline creatinine. Creatinine on admission 4.56 mg/dL and is currently 4.15 mg/dL. Patient is essentially anuric. Potassium this a.m. 6.1, patient was started on bicarb drip. He also received Kayexalate, insulin, MiraLAX, calcium chloride, bicarb and albuterol. Patient is heading towards needing ICE PLANT OPERATOR. I had lengthy discussion with patient's , son and other family members regarding DARON, hyperkalemia and need for ICE PLANT OPERATOR. At this time /son in agreement for moving forward with ICE PLANT OPERATOR. Risks and benefits of dialysis explained to and family; aware patient can become tachycardic, hypotensive during dialysis. Questions were answered. Patient is significantly hypotensive therefore will be initiated on CRRT. We will continue to monitor for renal recovery. Admission chest x-ray did not show fluid overload. -Diabetic ketoacidosis. Improving. On insulin drip. -Ischemic left lower extremity, vascular following. On antibiotics, cefepime. Blood cultures pending -Status post cardiopulmonary arrest with successful resuscitation. History of ischemic cardiomyopathy. Cardiology following. Addendum seen and examined independently multiple pressors. family wanted full care. attempted CRRT. Bp continues to drop. not much else to offer. goals of care discussions. multiple discussions with ICU team
[2022-04-13 10:46] LABS: Anion Gap 11 (5-15); BUN 93 mg/dL (7-18); BUN/Creat Ratio 21.5 RATIO (10-20); Calcium,Total 7.7 mg/dL (8.5-10.1); Chloride 120 mmol/L (98-107); Creatinine, Serum 4.33 mg/dL (0.70-1.30); EST Glomerular Filtration Rate 15 mL/min (>60); Est Glom Filt Rate - Afr Amer 18 mL/min (>60); Estimated Creatinine Clearance 17.77 ml/min; Glucose 277 mg/dL (74-106); Potassium 6.3 mmol/L (3.5-5.1); Sodium Level 151 mmol/L (136-145)
--- NOTE | 2022-04-13 11:03 | CASEMGMT ---
Social Work SW participated in ICU rounds. SW spoke w/pt's mother in law and in the waiting room. SW offered support to pt's family, let them know SW is here and available for support as needed. CORONA Parrish
[2022-04-13] MEDS: Heparin 10,000 UNITS/10 ML Vial 2600 UNITS IV (11:06)
--- NOTE | 2022-04-13 11:10 | RAD_ITS ---
STUDY: X-RAY CHEST REASON FOR EXAM: Male, 61 years old. Line placement TECHNIQUE: Single AP portable view of the chest. COMPARISON: Comparison is made with prior study dated 04/12/2022. FINDINGS: An endotracheal tube is in situ. The tip is at 5.9 cm proximal to the silvia. A right-sided subclavian line is seen with the tip at the junction of superior vena cava and right atrium. A right-sided internal jugular line has been placed. The tip is at the junction of the superior vena cava and right atrium. A nasogastric tube is seen with the tip in the fundal portion of the stomach. EKG electrodes are seen. Mild degree of increased markings at the right lung base and right upper lobe. There has been improved aeration. There is no demonstrated pleural abnormality. Sternal cerclage wires and vascular clips are present from a prior sternotomy and coronary artery bypass graft procedure (CABG). Normal mediastinum and patricia. Normal visualized pulmonary arteries. Normal visualized aortic arch and descending thoracic aorta. Normal visualized thoracic spine. Normal visualized ribs, clavicles, and shoulders. There is no demonstrated abnormality of the visualized soft tissue structures of the upper abdomen. RAD/CXR for Line Placement IMPRESSION: All the support tubes are in good position. Improved aeration of the right lung. Electronically Signed: Terrance Miller MD at 12:14 [facility] ,
[2022-04-13 11:41] LABS: Bedside Glucose 256 mg/dL (74-106)
[2022-04-13 11:41] LABS: Bedside Glucose 231 mg/dL (74-106)
[2022-04-13 11:41] LABS: Bedside Glucose 219 mg/dL (74-106)
[2022-04-13 12:09] LABS: Hematocrit 33.3 % (40-54); Hemoglobin 10.2 g/dL (13.0-16.5); Mean Corp Hgb Conc 30.6 g/dL (32-36); Mean Corpuscular Hgb 24.6 pg (27.0-32.0); Mean Corpuscular Volume 80.4 fL (80-94); Mean Platelet Vol. 10.5 fl (6.2-12.0); Platelet Count 118 K/mm3 (150-450); RBC Distribution Width CV 17.6 % (11.6-14.6); RBC Distribution Width SD 51.4 fl (35.1-43.9); Red Blood Count 4.14 M/mm3 (4.6-6.2); White Blood Count 12.9 K/mm3 (4.4-11.0)
[2022-04-13 12:13] LABS: Partial Thromboplast Time 38.7 Seconds (24.1-36.2)
--- NOTE | 2022-04-13 12:34 | CON.PCM.ID_ITS ---
Assessment & Plan Assessment/Plan (1) Cardiopulmonary arrest with successful resuscitation: (2) DKA (diabetic ketoacidoses): (3) Shock circulatory: PLAN: DKA with cardiac arrest, on 3 pressors with multiorgan system failure. L foot is cool, dusky with exposed bone. On vanc/cefepime. Consider podiatry consult, but overall poor prognosis. Will follow, thank you, d/w Dr. Avery (4) Acute kidney failure: HPI Consult Data Date of Consult: 04/13/22 HPI Narrative Reason for Consultation: osteo HPI Narrative: NAYELI JOSE, is a 61 M with PAD, DM, presented 04/12 with cardiac arrest. Had not been feeling well for a few days per his son. Follows at wound care, foot had been stable. Called EMS, and he coded while talking with squad. Now on vent, in icu, on 3 pressors. 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 Osteomyelitis of foot, left, acute Osteomyelitis of left foot Peripheral vascular occlusive disease Restless legs Type 2 diabetes mellitus with diabetic polyneuropathy Uncontrolled type 2 diabetes mellitus Home Medications empagliflozin 25 mg tablet (Jardiance) 25 mg PO DAILY DM 05/25/21 [History Last Taken 05/25/21] gabapentin 800 mg tablet 800 mg PO TID pain 05/25/21 [History Last Taken 07/31/21] metformin 1,000 mg tablet 1,000 mg PO BID DM 05/25/21 [History Last Taken 05/25/21] semaglutide 1 mg/dose (4 mg/3 mL) subcutaneous pen injector (Ozempic) 1 mg subcut FR DM 05/25/21 [History Last Taken 04/06/22] trazodone 100 mg tablet 100 mg PO QHS sleep 05/25/21 [History Last Taken 05/24/21] clopidogrel 75 mg tablet (Plavix) 75 mg PO DAILY blood thinner 07/11/21 [History Last Taken Unknown] acetaminophen 325 mg tablet (Tylenol) 650 mg PO Q6H PRN PRN Pain Score 1-10/Temp > 100.7 F #0 tabs 10/02/21 [Rx Last Taken Unknown] glipizide 5 mg tablet 5 mg PO BID 10/06/21 [History Last Taken Unknown] metoprolol succinate 25 mg tablet,extended release 24 hr 25 mg PO DAILY #90 tabs 10/23/21 [Rx Last Taken Unknown] atorvastatin 80 mg tablet 80 mg PO QHS #90 tabs 01/02/22 [Rx Last Taken Unknown] aspirin 81 mg tablet,delayed release 81 mg PO DAILY #90 tabs 01/17/22 [Rx Last Taken Unknown] lisinopril 2.5 mg tablet 2.5 mg PO DAILY #90 tabs 01/17/22 [Rx Last Taken Unk nown] Allergy/AdvReac Type Severity Reaction Status Date / Time No Known Allergies Allergy Verified 01/17/22 15:38 Family History Mother Hypertension CVA (cerebral vascular accident) Diabetes Surgical History H/O coronary artery bypass surgery (08/31/21) H/O spinal fusion History of angioplasty of peripheral vessel (08/2021) History of left heart catheterization (07/31/21) Social History household members: spouse Smoking Status: Former smoker how long ago did patient quit smoking: Quit 1987, smoked 1.5 ppd since teen. alcohol intake: never substance use type: does not use Physical Exam Const Constitutional Narrative: intubated, sedated HEENT normocephalic and head/scalp atraumatic Eyes Eyes Narrative: non reactive pupils Neck supple Resp Auscultation: diminished lung sounds Cardio Cardio Narrative: tachy GI soft to palpation, non-tender and non-distended Extremity General Extremity: Negative for edema Skin Skin Narrative: L foot is cool, purple. Wound with exposed bone. Lab / Micro Data Attestation: I reviewed the patient's lab results. Result Diagrams: 04/13/22 11:48 04/13/22 10:10 Labs: Laboratory Results - last 24 hr 04/12/22 10:05: Hemoglobin A1c > 14.0 H 04/12/22 12:31: POC Glucose > 500 H* 04/12/22 12:40: Troponin I High Sens 64 04/12/22 13:24: POC Glucose > 500 H* 04/12/22 13:25: MRSA (PCR) Negative 04/12/22 13:40: Sodium 136, Potassium 3.9, Chloride 98, Carbon Dioxide 14.0 L, Anion Gap 24 H, BUN 98 H, Creatinine 4.28 H, Estim Creat Clear Calc 20.40, Est GFR (MDRD) Af Amer 18 L, Est GFR (MDRD) Non-Af 15 L, BUN/Creatinine Ratio 22.9 H , Glucose 1621 H*, Calcium 9.1 04/12/22 13:55: Acetone Level SMALL H 04/12/22 14:36: POC Glucose > 500 H* 04/12/22 14:40: Glucose 1586 H* 04/12/22 15:00: Lactic Acid 6.3 H* 04/12/22 15:40: Sodium 140, Potassium 4.4, Chloride 103, Carbon Dioxide 14.0 L, Anion Gap 23 H, BUN 94 H, Creatinine 4.31 H, Estim Creat Clear Calc 17.85, Est GFR (MDRD) Af Amer 18 L, Est GFR (MDRD) Non-Af 15 L, BUN/Creatinine Ratio 21.8 H , Glucose 1453 H*, Calcium 8.8, Magnesium 3.4 H 04/12/22 16:35: Glucose 1394 H* 04/12/22 17:20: Troponin I High Sens 440 H* 04/12/22 17:20: WBC 13.9 H, RBC 4.70, Hgb 11.1 L, Hct 40.0, MCV 85.1 D, MCH 23.6 L, MCHC 27.8 L D, RDW Std Deviation 53.8 H, RDW Coeff of Imtiaz 17.4 H, Plt Count 327, MPV 10.7 04/12/22 17:20: Glucose 1281 H* 04/12/22 18:25: Glucose 1152 H* 04/12/22 20:00: Sodium 144, Potassium 5.2 H, Chloride 111 H, Carbon Dioxide 14.0 L, Anion Gap 19 H, BUN 92 H, Creatinine 4.02 H, Estim Creat Clear Calc 19.14, Est GFR (MDRD) Af Amer 20 L, Est GFR (MDRD) Non-Af 16 L, BUN/Creatinine Ratio 22.9 H, Glucose 1039 H*, Calcium 8.1 L 04/12/22 20:00: APTT 99.3 H* 04/12/22 20:00: Phosphorus 6.9 H 04/12/22 21:00: Glucose 976 H* 04/12/22 22:05: Glucose 897 H* 04/12/22 22:56: Glucose 839 H* 04/13/22 00:05: Sodium 148 H, Potassium 5.5 H, Chloride 115 H, Carbon Dioxide 18.0 L, Anion Gap 15, BUN 88 H, Creatinine 4.03 H, Estim Creat Clear Calc 19.09, Est GFR (MDRD) Af Amer 20 L, Est GFR (MDRD) Non-Af 16 L, BUN/Creatinine Ratio 21.8 H, Glucose 784 H*, Calcium 7.6 L 04/13/22 01:03: Glucose 717 H* 04/13/22 03:04: Glucose 574 H* 04/13/22 04:00: Sodium 148 H, Potassium 6.1 H*, Chloride 117 H, Carbon Dioxide 18.0 L, Anion Gap 13, BUN 89 H, Creatinine 4.15 H, Estim Creat Clear Calc 18.54, Est GFR (MDRD) Af Amer 19 L, Est GFR (MDRD) Non-Af 16 L, BUN/Creatinine Ratio 21.4 H, Glucose 531 H*, Calcium 7.2 L, Magnesium 2.8 H, Total Bilirubin 0.50, AST 1484 H, ALT 546 H, Alkaline Phosphatase 99, Total Protein 5.3 L, Albumin 1.9 L, Globulin 3.4, Albumin/Globulin Ratio 0.6 L 04/13/22 04:00: WBC 15.0 H, RBC 4.46 L, Hgb 10.8 L, Hct 35.3 L, MCV 79.1 L D, MCH 24.2 L, MCHC 30.6 L D, RDW Std Deviation 48.9 H, RDW Coeff of Imtiaz 17.2 H, Plt Count 171, MPV 10.3, Immature Gran % (Auto) 3.700 H, Neut % (Auto) 78.7 H, Lymph % (Auto) 11.5 L, Whitley % (Auto) 5.7, Eos % (Auto) 0.1, Baso % (Auto) 0.3, Absolute Neuts (auto) 11.8 H, Absolute Lymphs (auto) 1.72, Nucleated RBC % 0, Anisocytosis 1+ 04/13/22 05:10: Lactic Acid 5.6 H* 04/13/22 05:10: Glucose 442 H 04/13/22 06:20: POC Glucose 424 H 04/13/22 07:57: POC Glucose 297 H 04/13/22 08:54: POC Glucose 256 H 04/13/22 10:10: Sodium 151 H, Potassium 6.3 H*, Chloride 120 H, Carbon Dioxide 20.0 L, Anion Gap 11, BUN 93 H, Creatinine 4.33 H, Estim Creat Clear Calc 17.77, Est GFR (MDRD) Af Amer 18 L, Est GFR (MDRD) Non-Af 15 L, BUN/Creatinine Ratio 21.5 H, Glucose 277 H, Calcium 7.7 L 04/13/22 10:14: POC Glucose 231 H 04/13/22 11:18: POC Glucose 219 H 04/13/22 11:48: WBC 12.9 H, RBC 4.14 L, Hgb 10.2 L, Hct 33.3 L, MCV 80.4, MCH 24.6 L, MCHC 30.6 L, RDW Std Deviation 51.4 H, RDW Coeff of Imtiaz 17.6 H, Plt Cou nt 118 L, MPV 10.5 04/13/22 11:48: APTT 38.7 H Micro: Microbiology 04/12/22 19:45 Sputum, Induced/Lukens Gram Stain - Final 04/12/22 19:45 Sputum, Induced/Lukens Respiratory Culture - Preliminary Appears to be normal respiratory prasad. Further studies to follow. 04/12/22 10:20 Urine, Catheterized Urine Culture - Preliminary Culture exhibits no growth. 04/12/22 13:30 Mucosa - Nasopharyngeal Respiratory Panel (PCR) - Final 04/12/22 14:00 Urine Catheter - Catheter Streptococcus pneumoniae Antigen (M - Final 04/12/22 14:00 Urine Catheter - Johnson Legionella Antigen - Final ABG Data ABG results: ABG 04/12/22 04/13/22 20:12 04:37 Specimen Type ART ART Sample Site R Brach R Brach pH 7.12 L* 7.07 L* Bicarbonate Actual 10.3 L 13.9 L Total CO2 11 15 Base Excess -19 L -16 L O2 Saturation 89 L 87 L O2 % 50 65 ABG pCO2 31.9 L 48.2 H ABG pO2 73 L 73 L Octavio Test N/A Respiration Rate 14 14 O2 Delivery Device Adult Vent Adult Vent Vent Mode AC AC Tidal Volume 450 450 POC PEEP 5 5 Crit Call To/Read Back Yes Yes Blood Gas Notified Whom Dr. Jalen Al Rhythm Strip Rhythm Strip: Documented the MDM. Radiology Impression Chest X-Ray 04/12/22 11:11 IMPRESSION: All the support tubes are in good position. Progressive reticular infiltrate in the peripheral aspect of the right upper lobe and right lower lobe. This may represent progressive fibrosis versus superimposed patchy infiltrates. Electronically Signed: Terrance Miller MD at 12:38 EST , Echocardiogram 04/12/22 12:29 Interpretation Summary The left ventricular ejection fraction is 35 %. Severe global left ventricular systolic dysfunction. The study was technically difficult. Ordering Physician: Alistair Montenegro Referring Physician: Javy Alcaraz Performed By: Britney Arita RDCS, RVT Chest X-Ray 04/13/22 11:10 IMPRESSION: All the support tubes are in good position. Improved aeration of the right lung. Electronically Signed: Terrance Miller MD at 12:14 EST ,
[2022-04-13 12:38] LABS: Albumin, Serum 1.7 g/dL (3.2-5.0); BUN 92 mg/dL (7-18); BUN/Creat Ratio 21.1 RATIO (10-20); Calcium,Total 7.4 mg/dL (8.5-10.1); Chloride 119 mmol/L (98-107); Creatinine, Serum 4.35 mg/dL (0.70-1.30); EST Glomerular Filtration Rate 15 mL/min (>60); Est Glom Filt Rate - Afr Amer 18 mL/min (>60); Estimated Creatinine Clearance 17.69 ml/min; Glucose 292 mg/dL (74-106); Magnesium 2.6 mg/dL (1.6-2.6); Phosphorus 8.9 mg/dL (2.5-4.9); Potassium 6.4 mmol/L (3.5-5.1); Sodium Level 151 mmol/L (136-145)
--- NOTE | 2022-04-13 12:44 | PCM.OP.BLANK ---
Operative Report Date of Procedure: 04/13/22 Temporary hemodialysis catheter placement procedure note Indication: Hemodialysis Procedure: A time-out was completed to verify correct patient, indication, medication allergies, procedure, coagulation studies, informed consent signed, and equipment needed. The patient was placed in the supine position for a central line placement to the rt IJ vein. The patients rt neck was prepped using chlorhexidine and a full body sterile drape was applied. 1% lidocaine was used to anesthetize the surrounding skin. A 12fr 16 cm temporary hemodialysis catheter introduced into the internal jugular vein using the modified Seldinger technique with the assistance of ultrasound. The site was dilated up twice in a stepwise fashion. The catheter was threaded smoothly over the guidewire, the guidewire was removed easily, nonpulsatile blood returned. All ports were aspirated of air and flushed with sterile saline, and then walked with you 1000 heparin 1.3 mL to each port. The catheter was sutured in place and covered with an occlusive dressing impregnated with chlorhexidine. Post-procedure: The patient tolerated the procedure well. Vital signs remained stable. EBL 3 mL. No complications. Chest X Ray ordered to confirm tip placement and the absence of pneumothorax. Procedures Hospitalists Procedures: 85437 Insert Non-tunnel CV Cath
--- NOTE | 2022-04-13 12:51 | PCM.RX.CS ---
Consult Type of Consult: Follow-up Suspected Infection: Sepsis Labs: Sodium 151 mmol/L (136-145) H 04/13/22 11:48 Potassium 6.4 mmol/L (3.5-5.1) H* 04/13/22 11:48 Chloride 119 mmol/L (98-107) H 04/13/22 11:48 Carbon Dioxide 20.0 mmol/L (21.0-32.0) L 04/13/22 11:48 Anion Gap 11 (5-15) 04/13/22 10:10 BUN 92 mg/dL (7-18) H 04/13/22 11:48 Creatinine 4.35 mg/dL (0.70-1.30) H 04/13/22 11:48 Est GFR (MDRD) Af Amer 18 mL/min (>60) L 04/13/22 11:48 Est GFR (MDRD) Non-Af 15 mL/min (>60) L 04/13/22 11:48 BUN/Creatinine Ratio 21.1 RATIO (10-20) H 04/13/22 11:48 Glucose 292 mg/dL (74-106) H 04/13/22 11:48 Microbiology: Microbiology 04/12/22 19:45 Sputum, Induced/Lukens Gram Stain - Final 04/12/22 19:45 Sputum, Induced/Lukens Respiratory Culture - Preliminary Appears to be normal respiratory prasad. Further studies to follow. 04/12/22 10:20 Urine, Catheterized Urine Culture - Preliminary Culture exhibits no growth. 04/12/22 13:30 Mucosa - Nasopharyngeal Respiratory Panel (PCR) - Final 04/12/22 14:00 Urine Catheter - Catheter Streptococcus pneumoniae Antigen (M - Final 04/12/22 14:00 Urine Catheter - Johnson Legionella Antigen - Final Goal Trough: 15-20 mcg/mL Pharmacy Plan for Drug Dosing: CRRT INITIATED Current Vancomycin Dose: by trough Number of Doses Received: 2000mg x1 04/12/22 @ 1505 Current Renal Function: sCr 4.35, CRRT initiated Any Change in Vanc Plan: YES - Vancomycin 750mg Q12H based on CRRT maintenance dosing Pending Level: Vancomycin trough @ 1330 04/14/22 Pharmacy Service will continue to monitor and adjust dosing as required. Labs to be done on [date and time ordered]: Vancomycin trough @ 1330 04/14/22
[2022-04-13] MEDS: PUREFLOW B SOLUTION 2K 5,000 ML BAG 9 BAG PF (13:14)
--- NOTE | 2022-04-13 14:06 | WOUNDNOTE ---
wound photo: left foot
--- NOTE | 2022-04-13 14:06 | WOUNDNOTE ---
wound photo: left foot
--- NOTE | 2022-04-13 14:07 | WOUNDNOTE ---
wound photo: left foot
[2022-04-13 14:10] LABS: Allen Test Positive; Base Excess -13 mmol/L (-2 to +2); Bicarbonate 16.5 mmol/L (22-26); Blood Gas Specimen Type ART; FI02 75; Mode AC; O2 Delivery Device ET Tube; PEEP 5; PO2 34 mmHG (75-100); RR 14; SITE R Brach; SO2 47 % (95-99); Total Carbon Dioxide 18 mmol/L; Vt 450; pCO2 49.3 mmHg (35-45); pH 7.13 (7.35-7.45)
[2022-04-13] MEDS: Heparin 10,000 UNITS/10 ML Vial IV (14:18)
[2022-04-13] MEDS: Morphine 2 MG/ML Syringe IV (15:09)
[2022-04-13] MEDS: LORazepam 2 MG/ML Syringe IV (15:10)
[2022-04-13 15:23] LABS: M R Staph aureus DNA By PCR Negative (Negative); Probe Check PASS; Specimen Processing Control PASS; Staph aureus DNA By PCR POSITIVE (Negative)
[2022-04-13 15:31] LABS: Bedside Glucose 249 mg/dL (74-106)
[2022-04-13 15:31] LABS: Bedside Glucose 252 mg/dL (74-106)
--- NOTE | 2022-04-13 15:37 | PCM.DEATH ---
Preliminary Cause of Preliminary Cause of Preliminary Cause of : Multiorgan system failure Date of Admission: 04/12/22 Date of : 04/13/22 Principle Diagnosis Multiorgan system failure Diabetic ketoacidosis Cardiogenic shock Cardiopulmonary arrest Acute kidney injury Septic shock Metabolic acidosis Problem List: Active and Suspected Problems (Updated 04/12/22 @ 14:[address] Bryanna Vela MD) Coronary artery disease (Acute) DKA (diabetic ketoacidoses) (Acute) Cardiopulmonary arrest with successful resuscitation (Acute) DM hyperosmolar coma, type 2 (Acute) Acute hypotension (Acute) Shock circulatory (Acute) Acidosis, lactic (Acute) Acute upper gastrointestinal bleeding (Acute) Ischemia of left lower extremity (Acute) Acute uremia (Acute) Acute kidney failure (Acute) Ventricular fibrillation (Acute) Hospital Course NAYELI JOSE, is a 61 M with multiple comorbidities including coronary artery disease status post CABG in September 2021, diabetes mellitus type 2, hypertension previous history of osteomyelitis involving the left lower extremity who was brought to the emergency department with cardiopulmonary arrest.?Was successfully resuscitated using ACLS with ROSC and transferred to the emergency department.? Patient was intubated in the ED had a central line placed.? Initial diagnostic data reviewed blood glucose level of almost 1800 with lactic acid level of 24.? Patient was also found without pulse involving the left lower extremity blood pressure was in the 50s.? An assessment of multiorgan system failure was made patient admitted to the intensive care unit where he was placed on broad-spectrum antibiotic therapy, IV fluid resuscitation, pressor support with norepinephrine, phenylephrine as well as vasopressin. Patient clinical condition continued to deteriorate despite optimal management. Discussions were held with family decision was made to patient change patient CODE STATUS to DNR CC. Patient was terminally weaned off the vent. Patient was found with a heart tones as well as spontaneous breathing on 04/13/2022 at 1525. Patient was pronounced . Visit Charges Inpatient E&M: [id number] Disch Hosp
--- NOTE | 2022-04-13 16:11 | CPS ---
Critical ABG values, Dr. Avery aware.
== END 2022-04-13 15:25 | DRG 871 ==
LOC: ED 11:29 → ICU 12:37
PROVIDERS: Emergency Medicine; Family Medicine; Internal Medicine Critical Care Medicine; Internal Medicine Nephrology; Admitting Provider Internal Medicine; Emergency Provider Emergency Medicine; PCP Student in an Organized Health Care Education/Training Program; Visit Provider Internal Medicine
DX: A41.9 Sepsis, unspecified organism (principal); E11.10 Type 2 diabetes mellitus with ketoacidosis without coma; N17.0 Acute kidney failure with tubular necrosis; J96.01 Acute respiratory failure with hypoxia; K72.00 Acute and subacute hepatic failure without coma; E11.01 Type 2 diabetes mellitus with hyperosmolarity with coma; R65.21 Severe sepsis with septic shock; G93.40 Encephalopathy, unspecified; M86.8X7 Other osteomyelitis, ankle and foot; E87.20 Acidosis, unspecified; R57.0 Cardiogenic shock; I46.9 Cardiac arrest, cause unspecified; I49.01 Ventricular fibrillation; L97.524 Non-pressure chronic ulcer of other part of left foot with necrosis of bone; E11.621 Type 2 diabetes mellitus with foot ulcer; E11.42 Type 2 diabetes mellitus with diabetic polyneuropathy; E11.51 Type 2 diabetes mellitus with diabetic peripheral angiopathy without gangrene; J44.9 Chronic obstructive pulmonary disease, unspecified; E11.65 Type 2 diabetes mellitus with hyperglycemia; E87.5 Hyperkalemia; E78.5 Hyperlipidemia, unspecified; I25.10 Atherosclerotic heart disease of native coronary artery without angina pectoris; I25.5 Ischemic cardiomyopathy; I10 Essential (primary) hypertension; Z79.02 Long term (current) use of antithrombotics/antiplatelets; Z79.82 Long term (current) use of aspirin; Z82.3 Family history of stroke; Z79.84 Long term (current) use of oral hypoglycemic drugs; Z87.891 Personal history of nicotine dependence; Z66 Do not resuscitate; Z51.5 Encounter for palliative care; Z95.1 Presence of aortocoronary bypass graft
CPT/HCPCS: 31500; 31720; 36556; 36600; 51702; 71045; 80048; 80053; 80069; 80076; 80307; 81001; 82009; 82077; 82550; 82803; 82947; 82962; 83036; 83605; 83735; 83880; 84100; 84484; 85025; 85027; 85610; 85730; 87040; 87070; 87077; 87086; 87186; 87205; 87449; 87633; 87640; 87641; 90947; 92950; 93005; 93308; 94002; 94003; 94640; 97802; 99285; J7030; J7040; J7050; J7120; Q9957; A4216; C1752; C1887; C8924; J0610; J3010; J3490